=== PATIENT | male | born 1965 | race Caucasian/White ===

== ENCOUNTER 2020-05-22 16:32 | Outpatient (CLI) | payer OTHER, SELFPAY ==
--- NOTE | ~2020-05-22 | XR_ITS ---
EXAMINATION: XR hand LT 2V, XR hand RT 2V DATE: 05/22/2020 16:58 INDICATION: Osteoarthritis at the bilateral hands and sticking at the left fourth and fifth proxima l and distal interphalangeal joints. TECHNIQUE: 1. Posteroanterior and lateral views of the left hand were obtained. 2. Posteroanterior and lateral views of the right hand were obtained. COMPARISON: None. FINDINGS: Alignment is normal at both the left and right hands. No fracture. Typical pattern of mild polyarticu lar osteoarthritis of both hands tearing at the interphalangeal joints with distal predominance, the bilateral first metacarpophalangeal joints and at the bilateral first carpal metacarpal joints. No co rtical erosions to suggest an inflammatory arthritis. Soft tissues are unremarkable. IMPRESSION: 1. Typical pattern of mild bilateral polyarticular osteoarthritis at both hands. Reviewed, dictated and finalized at location A. IMPRESSION: 1. Typical pattern of mild bilateral polyarticular osteoarthritis at both hands .
== END 2020-05-22 16:33 | disposition home or self-care (01) ==
PROVIDERS: PCP Family Medicine; Visit Provider Physician Assistant
DX: M79.641 Pain in right hand (principal); M79.642 Pain in left hand; M19.042 Primary osteoarthritis, left hand; M19.041 Primary osteoarthritis, right hand
CPT/HCPCS: 73120

== ENCOUNTER → 2020-06-20 16:43 | Outpatient (CLI) | payer OTHER, SELFPAY ==
--- NOTE | ~2020-06-20 | XR_ITS ---
XR thoracic spine 3V 06/20/2020 16:56 Indication: Back pain Procedure: 3 views thoracic spine Comparison: No prior studies for comparison. Findings: Mild thoracic spondylosis with dextrocurvature of the thoracic spine. No fracture or trauma tic malalignment. No paraspinal soft tissue abnormality. Visualized lung parenchyma unremarkable. Impression: 1: Mild thoracic spondylosis. Reviewed, dictated and finalized at location A. Impression: 1: Mild thoracic spondylosis.
== END ==
PROVIDERS: PCP Family Medicine; Visit Provider Physician Assistant
DX: M54.9 Dorsalgia, unspecified (principal); M47.814 Spondylosis without myelopathy or radiculopathy, thoracic region
CPT/HCPCS: 72072

== ENCOUNTER 2024-03-13 20:29 | Emergency (ER) | payer OTHER, SELFPAY ==
--- NOTE | ~2024-03-13 | XR_ITS ---
EXAMINATION: XR chest 1V portable Exam Date/Time: 03/13/2024 21:26 CDT HISTORY: Palpitations Comparison: None. RESULT: Lines, tubes, and devices: None. Lungs and pleura: Mild diffuse reticular opacities. Calcified right lower lung granuloma. Cardiomediastinal silhouette: Stable. Other: No acute osseous or upper abdominal finding. IMPRESSION: Mild interstitial edema. Reviewed, dictated and finalized at location K. IMPRESSION: Mild interstitial edema.
[2024-03-13 20:32] VITALS: BP 161/98; PULSE 86; RESP 20; TEMP 36.4; O2SAT 99
--- NOTE | 2024-03-13 20:41 | ECG_ITS ---
SEE SCANNED COPY FOR CONFIRMED REPORT MTDD
--- NOTE | 2024-03-13 20:42 | ED.GENADULT ---
HPI - General Adult General Chief complaint: Arrhythmia/Palpitations Stated complaint: afib Time Seen by Provider: 03/13/24 20:32 History of Present Illness HPI narrative: patient is 58-year-old gentleman who presents emergency department with chief complaint of palpitations. Patient reports that previously had an episode of AFib that was successfully chemically cardioverted the patient reports that today he had an episode where he was startled and then noticed that it felt like his heart was beating irregular patient states he used an Apple watch that did say that there was an episode of possible arrhythmia the patient states that has subsequently improved denies chest pain states that he feels still feels as though his heart may skipping a beat or irregular at times. Patient reports he has history of obstructive sleep apnea and reports that he has been not the most compliant with using his CPAP Related Data Allergies Allergy/AdvReac Type Severity Reaction Status Date / Time codeine Allergy Severe Abdominal Verified 02/09/24 16:13 Pain Review of Systems Review of Systems: A 10 system review of systems was completed on the patient and is negative except for what is stated in the HPI. Nursing and ancillary documentation was reviewed. FORMERLY [facility] Past Medical History Medical History Bilateral carpal tunnel syndrome Bilateral hand pain Carpal tunnel syndrome Neck pain Paresthesias Upper back pain Family History Family History Father Hypertension Social History Social History Smoking packs per day: 0.5 Smoking cigarettes per day: 10.0 Years smoked: 10 Smoking pack-years: 5.00 Smoking status: Never smoker Tobacco type: cigarettes Second hand tobacco smoke exposure: No Alcohol intake: current Alcohol use details: occasional Substance use: never Substance use type: does not use Living arrangements: with family Occupation/Education: occupation Gender identity (if verbalized by the patient): Male Exam Narrative: GENERAL: Well-appearing, well-nourished, and in no acute distress. HEAD: Normocephalic, atraumatic. EYES: PERRLA and EOMI. ENT: Nares clear, no rhinorrhea or epistaxis. Mucous membranes moist. NECK: Supple. CHEST: Clear to auscultation. No respiratory distress. HEART: Regular rate and rhythm. No murmur heard. Normal peripheral pulses. ABDOMEN: Soft, nontender, nondistended, normal active bowel sounds. EXTREMITIES: Normal range of motion. No edema. SKIN: Warm, dry, no rash. NEURO: No focal deficits. Alert and oriented x3. PSYCH: Normal mood and affect. Course Vital Signs Vital signs: Vital Signs Temperature 36.4 C L 03/13/24 20:32 Pulse Rate 86 03/13/24 20:32 Respiratory Rate 20 03/13/24 20:32 Blood Pressure 161/98 H 03/13/24 20:32 Pulse Oximetry 99 03/13/24 20:32 Oxygen Delivery Room Air 03/13/24 20:32 Temperature 36.4 C L 03/13/24 20:32 Pulse Rate 63 03/13/24 22:20 Respiratory Rate 20 03/13/24 22:20 Blood Pressure 135/74 03/13/24 22:20 Pulse Oximetry 97 03/13/24 22:20 Oxygen Delivery Room Air 03/13/24 20:32 Medical Decision Making [facility] Narrative Medical decision making narrative: differential diagnosis includes dysrhythmia, electrolyte abnormality, EKG showed sinus rhythm with sinus arrhythmia. The patient has been observed on the monitor and has normal sinus rhythm without ectopic CBC was within normal limits electrolytes showed a potassium of 3.7 TSH was 3.07 and magnesium was 2.0 troponin was less than 0.012 due to the potassium being 3.7 the patient was given a single dose of additional potassium in the emergency department. chest x-ray showed no focal infiltrate Vital Signs Vital Signs: Vital Signs
[2024-03-13 20:49] LABS: Basophils Absolute Auto 0.1 K/mm3 (0.0-0.1); Eosinophils Absolute Auto 0.1 K/mm3 (0-0.3); Eosinophils Percent Auto 2.1 % (0-4.4); Hematocrit 43.7 % (42.0-52.0); Hemoglobin 15.1 g/dL (14.0-18.0); Immature Granulocyte Absolute 0.01 K/mm3 (0.00-0.031); Immature Granulocyte Percent A 0.2 % (0-0.5); Lymphocytes Absolute Auto 2.22 K/mm3 (0.9-3.2); Lymphocytes Percent Auto 35.4 % (18.3-44.2); Mean Corpuscular HGB Conc 34.6 g/dl (32-36); Mean Corpuscular Hemoglobin 29.5 pg (26-34); Mean Corpuscular Volume 85.5 fl (80-100); Mean Platelet Volume 9.8 fl (7.4-10.4); Monocytes Absolute Auto 0.9 K/mm3 (0.1-0.6); Monocytes Percent Auto 13.9 % (2.6-8.5); Neutrophils Percent Auto 47.4 % (45.5-73.1); Platelet Count Result 280 k/mm3 (150-375); Red Blood Count 5.11 M/mm3 (4.6-6.20); Red Cell Distribution Width 12.5 % (11.5-14.5); White Blood Count 6.3 K/mm3 (4.5-10.0)
[2024-03-13 20:53] VITALS: PULSE 80
[2024-03-13 21:01] LABS: Alanine Aminotransferase 31 U/L (6-50); Albumin Level 4.5 g/dL (3.5-5.1); Alkaline Phosphatase 60 U/L (38-126); Anion Gap 9 mmol/L (4-12); Aspartate Amino Transferase 37 U/L (17-59); Bilirubin,Total 0.4 mg/dL (0.2-1.3); Blood Urea Nitrogen 18 mg/dL (9-20); Calcium 9.7 mg/dL (8.4-10.2); Carbon Dioxide 21 mmol/L (22-30); Chloride 111 mmol/L (98-107); Estimated CRCL calculation 72 ml/min; Estimated Glomerular Filt Rate > 60; Glucose 105 mg/dL (65-110); Partial Thromboplastin Time 26.5 Seconds (22.3-36.8); Potassium 3.7 mmol/L (3.4-5.0); Prothrombin Time 13.4 Seconds (11.1-14.7); Sodium 141 mmol/L (137-145)
[2024-03-13 21:12] LABS: Troponin I < 0.012 ng/mL (0.000-0.034)
[2024-03-13] MEDS: POTASSIUM CHLORIDE 20 MEQ PACKET (FOR LIQUID) 40 MEQ PO (21:50)
[2024-03-13 22:20] VITALS: BP 135/74; PULSE 63; RESP 20; O2SAT 97
[2024-03-13 22:20] LABS: Appearance Urine Clear (Clear); Bilirubin Urine Negative (Negative); Blood Urine Negative (Negative); Color Urine Yellow (Yellow); Glucose Urine UA Negative (Negative); Ketones Urine Negative (Negative); Leukocyte Esterase Ur Negative LEU/UL (Negative); Nitrate Urine Negative (Negative); Protein Urine Negative (Negative); Specific Grav Ur 1.026 (1.001-1.035); pH Urine 5.5 (5.0-9.0)
[2024-03-13 22:24] LABS: Add Urine Microscopic? NO
[2024-03-13 22:49] VITALS: BP 129/77; PULSE 63; RESP 17; O2SAT 97
== END 2024-03-13 22:53 | disposition home or self-care (01) ==
PROVIDERS: Emergency Provider Emergency Medicine; PCP Family Medicine
DX: R00.2 Palpitations (principal); G47.33 Obstructive sleep apnea (adult) (pediatric); Z87.891 Personal history of nicotine dependence; R94.31 Abnormal electrocardiogram [ECG] [EKG]
CPT/HCPCS: 36415; 71045; 80053; 81003; 83735; 84443; 84484; 85025; 85610; 85730; 93005; 99284; A9270

== ENCOUNTER 2024-08-11 10:32 | Outpatient (CLI) | payer OTHER, SELFPAY ==
--- NOTE | 2024-08-11 11:30 | NEURO_ITS ---
Impression: # Complains of upper extremity pain, numbness and cramps in left upper extremity. # Moderate to severe bilateral Carpal Tunnel Syndrome. # Left moderate ulnar neuropathy across the elbow. # Needle/EMG abnormal in left upper extremity proximally as well thus MRI of cervical spine suggested to rule out the possibility of higher involvement as well. Nerve Conduction Studies Anti Sensory Summary Table Stim Site NR Peak (ms) P-T Amp (?V) Site1 Site2 Delta-P (ms) Dist (cm) Edmund (m/s) Left Median Anti Sensory (2-3nd Digit) Wrist 6.2 17.7 Wrist 2-3nd Digit 6.2 14.0 23 Wrist 6.2 12.0 Wrist 2-3nd Digit 6.2 14.0 23 Right Median Anti Sensory (2-3nd Digit) Wrist 5.2 15.1 Wrist 2-3nd Digit 5.2 14.0 27 Wrist 6.3 63.4 Wrist 2-3nd Digit 5.2 14.0 27 Left Radial Anti Sensory (Base 1st Digit) Wrist 1.9 33.3 Wrist Base 1st Digit 1.9 0.0 Right Radial Anti Sensory (Base 1st Digit) Wrist 2.2 18.8 Wrist Base 1st Digit 2.2 0.0 Left Ulnar Anti Sensory (5th Digit) Wrist 2.4 33.0 Wrist 5th Digit 2.4 14.0 58 Right Ulnar Anti Sensory (5th Digit) Wrist 2.4 38.8 Wrist 5th Digit 2.4 14.0 58 Motor Summary Table Stim Site NR Onset (ms) O-P Amp (mV) Site1 Site2 Delta-0 (ms) Dist (cm) Edmund (m/s) Left Median Motor (Abd Poll Brev) Wrist 6.5 4.6 Elbow Wrist 5.5 32.0 58 Elbow 12.0 4.4 Right Median Motor (Abd Poll Brev) Wrist 6.9 4.1 Elbow Wrist 5.3 28.0 53 Elbow 12.2 3.8 Left Ulnar Motor (Abd Dig Minimi) Wrist 2.7 6.5 A Elbow Wrist 6.2 31.0 50 A Elbow 8.9 5.7 B Elbow Wrist 3.8 23.0 61 B Elbow 6.5 4.4 Right Ulnar Motor (Abd Dig Minimi) Wrist 2.5 7.0 A Elbow Wrist 5.3 30.0 57 A Elbow 7.8 5.4 F Wave Studies NR F-Lat (ms) L-R F-Lat (ms) Left Median (Mrkrs) (Abd Poll Brev) 34.56 1.29 Right Median (Mrkrs) (Abd Poll Brev) 35.85 1.29 Left Ulnar (Mrkrs) (Abd Dig Min) 32.41 2.23 Right Ulnar (Mrkrs) (Abd Dig Min) 30.18 2.23 EMG Side Muscle Nerve Root Ins Act Fibs Amp Dur Recrt Comment Right 1stDorInt Ulnar C8-T1 Nml Nml Nml Nml Nml Right Ext Indicis Radial (Post Int) C7-8 Nml Nml Nml Nml Nml Right Ext Digitorum Radial (Post Int) C7-8 Nml Nml Nml Nml Nml Right BrachioRad Radial C5-6 Nml Nml Nml Nml Nml Right PronatorTeres Median C6-7 Nml Nml Nml Nml Nml Right Abd Poll Brev Median C8-T1 Nml Nml Nml >12ms +2 Right ABD Dig Min Ulnar C8-T1 Nml Nml Nml Nml Nml Left 1stDorInt Ulnar C8-T1 Nml Nml Nml Nml Nml Left Ext Indicis Radial (Post Int) C7-8 Nml Nml Nml Nml Nml Left Ext Digitorum Radial (Post Int) C7-8 Nml Nml Nml Nml Nml Left BrachioRad Radial C5-6 Nml Nml Nml Nml Nml Left PronatorTeres Median C6-7 Nml Nml Nml Nml Nml Left Abd Poll Brev Median C8-T1 Nml Nml Nml >12ms +2 Left ABD Dig Min Ulnar C8-T1 Nml Nml Nml Nml Nml Left Biceps Musculocut C5-6 Nml Nml Nml Nml Nml Left Triceps Radial C6-7-8 Nml Nml Nml >12ms Nml Left Deltoid Axillary C5-6 Nml Nml Nml >12ms Nml MTDD
== END 2024-08-11 10:33 | disposition home or self-care (01) ==
PROVIDERS: PCP Family Medicine; Visit Provider Plastic Surgery
DX: G56.03 Carpal tunnel syndrome, bilateral upper limbs (principal); G56.22 Lesion of ulnar nerve, left upper limb
CPT/HCPCS: 95886; 95911

== ENCOUNTER 2024-10-13 01:04 | Day surgery (SDC) | payer OTHER, SELFPAY ==
[2024-10-07 11:11] VITALS: BMI 31.2
--- NOTE | 2024-10-07 11:19 | PC.NURSE ---
Report to the Outpatient Waiting Room, entrance under the green pavilion located off [facility], at time _0830_ on date _[id number]_. Planned Procedure Time: _1030_.? Time changes happen often and if your time is changed the preop area will call you the afternoon before. - You and your visitor will be asked to self-screen and do not enter if you have any COVID symptoms. Please call surgeon if you need to reschedule. - A mask is optional within the hospital at this time. May have clear liquids (water, carbonated beverages, clear teas, apple juice) until 230am surgery with a maximum of 20 ounces. Nothing to drink after 230am - No food from midnight until time of surgery and no smoking Take only the following medications with a SIP of water on the morning of surgery: ___None____ DO NOT STOP ANY OF YOUR OTHER PRESCRIPTION MEDICATIONS PRIOR TO SURGERY EXCEPT THE FOLLOWING Medications to discontinue per physician ____Vitamins and supplements Date to take last ggel___[id number]____ Please no make-up, nail montserratian, hairspray, perfume, deodorant, or body powder the day of surgery.? No jewelry (including any body piercings) or valuables the day of surgery, leave them at home.? Please take a shower or bath the night before, or the morning of, surgery with an antibacterial soap.? Wear comfortable, loose fitting clothing.? - Jewelry must be removed prior to entering the operating room.? Rings and piercings that are not removed may be cut off. - The hospital will not accept responsibility for valuables.? - Please leave all valuables, including medications, at home the day of surgery. If you are going home after surgery, a licensed log driver must drive you home.? - NO public transportation without another adult if you receive anesthesia. - We recommend that an adult stay with you for 24 hours following discharge. - We also recommend that you do not drive, make important decision, drink alcoholic beverages, or take any drugs that were not prescribed by your health care provider for at least 24 hours after your discharge time. Follow any additional instructions given to you from your surgeon. Telephone instructions given to _Robert__and asked if any additional questions and then verbalized understanding. Patient advised to call surgeon office or pre surgery nurse liaison [phone] if any additional questions.
--- NOTE | 2024-10-13 06:52 | PM.HPGS ---
History of Present Illness History of Present Illness Chief complaint: Lesion Ulnar Nerve Left Upper Limb Narrative: Patient seen and examined in pre-operative holding area. No interval change in medical history or symptoms. Patient recalls previous discussion of benefits and alternatives to procedure. Continues to desire to proceed with left endoscopic possible open carpal tunnel release and left cubital tunnel release . Reviewed procedure, post-op expectations and risks including but not limited to bleeding, infection, injury to tendon/nerve/vessel, decreased hand function, stiffness, RSD, no change or worsening of symptoms. I discussed the possible use of assistants and their participation in the case. Patient stated understanding and signed the consent form wishing to proceed. Review of Systems Review of Systems: All systems reviewed & are unremarkable except as noted in HPI and below PMFSH Past Medical History Medical History Bilateral carpal tunnel syndrome Bilateral hand pain Carpal tunnel syndrome Neck pain Paresthesias Upper back pain Family History Family History Father Hypertension Social History Social History Smoking packs per day: 0.5 Smoking cigarettes per day: 10.0 Years smoked: 10 Smoking pack-years: 5.00 Smoking status: Former smoker Tobacco type: cigarettes Second hand tobacco smoke exposure: No Smoking end date: 10/07/94 Alcohol intake: current Alcohol use details: occasional Substance use: never Substance use type: does not use Living arrangements: with family Occupation/Education: occupation Gender identity (if verbalized by the patient): Male Spiritual care concerns: No Meds Home Medications and Allergies Home Medications Medication Instructions Recorded Confirmed Type rosuvastatin 5 mg tablet 5 mg PO DAILY #90 tabs 06/15/24 10/07/24 Rx cholecalciferol (vitamin D3) 25 25 mcg PO DAILY 10/07/24 10/07/24 History mcg (1,000 unit) capsule (Vitamin D3) collagen,hydrolysate 500 mg-biotin 1 cap PO DAILY 10/07/24 10/07/24 History 800 mcg-ascorbic acid 50 mg capsule (Collagen 1500 Plus C) magnesium 200 mg tablet 200 mg PO DAILY 10/07/24 10/07/24 History multivitamin 1 tablet PO DAILY 11/14/24 11/14/24 History Allergies Allergy/AdvReac Type Severity Reaction Status Date / Time codeine Allergy Severe Abdominal Verified 10/07/24 11:09 Pain Exam Narrative: unchanged Assessment and Plan Assessment and plan (1) Entrapment of left ulnar nerve at elbow: Code(s): G56.22 - Lesion of ulnar nerve, left upper limb Status: Acute Assessment and Plan: cont as above (2) Bilateral carpal tunnel syndrome: Code(s): G56.03 - Carpal tunnel syndrome, bilateral upper limbs Status: Acute
--- NOTE | 2024-10-13 06:53 | P.OP_ITS ---
Procedure Note - Detailed Date of Procedure 10/13/24 Pre-op Diagnosis let carpal and cubital tunnel syndrome Post-op Diagnosis Same Procedure Performed left ectr and CuTR Surgeon London Banks MD [facility] Administrator macario bob pa-c Anesthesia MAC Description of Procedure INFORMED CONSENT: The patient was seen and examined and marked in the pre-op area.? The patient signed the consent form. PROCEDURE IN DETAIL:The patient taken back to OR on the stretcher in supine position. Time out performed with anesthesia, surgeon and staff agreeing on patient's name site and surgery to be performed SCDs were placed on the lower extremities and inflated. A tourniquet was placed on {left} upper extremity and antibiotics given IV After anesthesia administered sedation I injected {10}cc 1%lido with epi and 0.5% marcaine plain at the operative sites The?{left upper extremity}?was prepped and draped in sterile fashion the??{left upper extremity} was? exsanguinated with Esmarch bandage and tourniquet inflated to 250mmHg I made a transverse incision in the {left} volar distal wrist crease through skin and dermis with 15 blade scalpel.? Littler scissors spread down to antebrachial fascia. A small incision was made in antebrachial fascia allowing access to Carpal tunnel. I proceeded with sequential dilation staying in line with the ring finger and hugging the hook of the hamate.? I then used the synovial elevator to free any adhesions from the underside of the transverse carpal ligament. Next I was able to insert the Microaire endoscopic carpal tunnel device with direct visualization of the transverse fibers on the monitor and proceeded with complete segmental retrograde release of the ligament in its entirety.? I irrigated with normal saline and closed with 4-0 monocryl for dermis and subcuticular closure. I next proceeded with making a longitudinal incision between two heads for flexor carpi ulnaris at end of {left} cubital tunnel with 15 blade scalpel.? Littler scissors were used to spread down to FCU fascia.? An incision was made in FCU fascia and ulnar nerve identified exiting cubital tunnel.? I proceeded with complete retrograde release of the cubital tunnel including 7cm proximal for the intermuscular septum.? The nerve appeared healthy with visible vaso nervorum.? There was no subluxation on full elbow range of motion. ? I irrigated with normal saline and closure with 3-0 vicryl dermis and 4-0 monocryl for subcuticular. The incisions were covered with Dermabond then 4x4s, rock, and a posterior elbow and volar wrist splint for patient safety, security and comfort and secured with tom bandages after the tourniquet was let down noting the hand was warm and well perfused.? Patient awaken from anesthesia and transferred to recovery in stable condition Complications - none EBL- 1cc Disposition - home in stable conditions macario bob pa-c was essential for positioning, retraction, closure and dressing placement [facility] Billing Surgery - Charge Forward: Surgery Billing ([id number] same for macario acevedo )
[2024-10-13 08:35] VITALS: BP 137/80; PULSE 63; RESP 18; TEMP 36.3; O2SAT 100; BMI 30.9
[2024-10-13] MEDS: LACTATED RINGERS 1,000 ML 30 ML IV CONT (08:50)
--- NOTE | 2024-10-13 09:08 | P.PNAN_ITS ---
Anes - Initial Pre Proc Eval Procedure: Operation Date: 10/13/24 10:30 Proposed Procedures p Left Endoscopic Carpal Tunnel Release, Possible Open, Left Cubital Tunnel Release - London Banks MD Date/Time: 10/13/24 09:08 Surgeon: London Banks MD Pre Op Diagnosis: Lesion Ulnar Nerve Left Upper Limb Patient Data Age: 59 Gender: M Height: 1.83 m Weight: 104.5 kg Allergies Allergy/AdvReac Type Severity Reaction Status Date / Time codeine Allergy Severe Abdominal Verified 10/07/24 11:09 Pain Home Medications Medication Instructions Recorded Confirmed Type rosuvastatin 5 mg tablet 5 mg PO DAILY #90 tabs 06/15/24 10/07/24 Rx cholecalciferol (vitamin D3) 25 25 mcg PO DAILY 10/07/24 10/07/24 History mcg (1,000 unit) capsule (Vitamin D3) collagen,hydrolysate 500 mg-biotin 1 cap PO DAILY 10/07/24 10/07/24 History 800 mcg-ascorbic acid 50 mg capsule (Collagen 1500 Plus C) magnesium 200 mg tablet 200 mg PO DAILY 10/07/24 10/07/24 History multivitamin 1 tablet PO DAILY 10/07/24 10/07/24 History tramadol 50 mg tablet 50 mg PO Q6H PRN pain #12 tabs 10/13/24 Rx Patient hx anesthesia problems: none Family hx anesthesia problems: none Results Review: All pre-operative results and documents have been reviewed as part of the pre- operative evaluation. FORMERLY [facility] Past Medical History Medical History Bilateral carpal tunnel syndrome Bilateral hand pain Carpal tunnel syndrome Neck pain Paresthesias Upper back pain Family History Family History Father Hypertension Social History Social History Smoking packs per day: 0.5 Smoking cigarettes per day: 10.0 Years smoked: 10 Smoking pack-years: 5.00 Smoking status: Former smoker Tobacco type: cigarettes Second hand tobacco smoke exposure: No Smoking end date: 10/07/94 Alcohol intake: current Alcohol use details: occasional Substance use: never Substance use type: does not use Living arrangements: with family Occupation/Education: occupation Gender identity (if verbalized by the patient): Male Spiritual care concerns: No Anes - Eval Final PreProcedure Day of Procedure 10/13/24 09:08 Patient weight: obese Heart: regular rate and rhythm Lungs: clear to auscultation Airway: Mallampati scale class II Neurological: alert and oriented Last oral intake: >/= 8 hours ASA classification: III Emergent: no Anesthetic plan: proceed Anesthesia type and monitoring: general GIVS and standard monitoring Results Review: All pre-operative results and documents have been reviewed as part of the pre- operative evaluation. Hyperlipidemia, DEBBIE on CPAP. Pt exercised w wts daily, no cp or sob. Informed Consent: The patient's anesthetic plan and its attendant risks and benefits were discussed with the patient/family/POA. Questions were solicited and answers provided to the satisfaction of the patient/family/POA.
[2024-10-13] MEDS: ceFAZolin 2 GM/D5W 50 ML 2 GM/50 ML BAG IVPB (09:15)
[2024-10-13] MEDS: BUPivacaine HCL 0.5% 10 ML AMP 5 ML INFILTRATE (09:16)
[2024-10-13] MEDS: LIDO 1%/EPINEPHRINE 1:100,000 50 ML VIAL INFILTRATE (09:18)
[2024-10-13] MEDS: KETOROLAC 30 MG/ML VIAL (*BKC) IV PUSH (09:48)
[2024-10-13 09:49] VITALS: BP 112/64; PULSE 70; RESP 20; O2SAT 95
[2024-10-13 10:15] VITALS: BP 133/66; PULSE 63; RESP 20
[2024-10-13 10:40] VITALS: BP 125/81; PULSE 57; RESP 20
== END 2024-10-13 10:43 | disposition home or self-care (01) ==
PROVIDERS: PCP Family Medicine; Visit Provider Plastic Surgery
PROC: 01N54ZZ Release Median Nerve, Percutaneous Endoscopic Approach (ICD-10-PCS; CPT 29848; principal; 2024-10-13 10:30)
DX: G56.02 Carpal tunnel syndrome, left upper limb (principal); G56.22 Lesion of ulnar nerve, left upper limb; Z87.891 Personal history of nicotine dependence
CPT/HCPCS: 29848; 64718; A9270; J0690; J1885; J2003; J2004; J2250; J2405; J2704; J3010; J7120

== ENCOUNTER 2024-11-08 08:22 | Emergency (ER) | payer OTHER, SELFPAY ==
--- NOTE | 2024-11-08 08:26 | ED.ABDPAIN ---
HPI - Abdominal Pain General Chief Complaint: Abdominal Pain Stated Complaint: lower abdominal pain Time Seen by Provider: 11/08/24 08:29 Source: patient, RN notes reviewed and old records reviewed Mode of arrival: ambulatory Limitations: no limitations History of Present Illness HPI narrative: 59-year-old male presents to the [facility] with lower abdominal pain, mostly suprapubic and left lower quadrant. Denies any past abdominal surgeries. States symptoms started on Friday, 3 days ago. No treatment prior to arrival. states he has had some frequency with urination. Pain with bowel movements. Related Data Home Medications ?Medication ?Instructions ?Recorded ?Confirmed ?Last Taken ?Type cholecalciferol (vitamin D3) 25 25 mcg PO DAILY 10/07/24 10/13/24 10/09/24 History mcg (1,000 unit) capsule (Vitamin D3) collagen,hydrolysate 500 mg-biotin 1 cap PO DAILY 10/07/24 10/13/24 10/09/24 History 800 mcg-ascorbic acid 50 mg capsule (Collagen 1500 Plus C) magnesium 200 mg tablet 200 mg PO DAILY 10/07/24 10/13/24 10/09/24 History multivitamin 1 tablet PO DAILY 10/07/24 10/13/24 10/09/24 History Allergies Allergy/AdvReac Type Severity Reaction Status Date / Time codeine AdvReac Severe Abdominal Verified 11/08/24 08:33 Pain Review of Systems Review of Systems: All systems reviewed & are unremarkable except as noted in HPI and below Constitutional: Constitutional: Reports no additional constitutional complaints ENT: Reports system reviewed and no additional complaints, except as documented Cardiovascular: Cardiovascular: Reports no additional cardiovascular complaints, Denies chest pain and Denies dyspnea Respiratory: Respiratory: Reports no additional respiratory complaints, Denies chest congestion, Denies cough and Denies dyspnea Gastrointestinal: Gastrointestinal: Reports as per HPI, Reports abdominal pain, Denies change in stool character, Denies constipation, Denies diarrhea, Denies nausea and Denies vomiting Genitourinary: Genitourinary: Reports as per HPI and Reports urinary frequency Musculoskeletal: Musculoskeletal: Reports no additional musculoskeletal complaints Integumentary/Breasts: Skin/Breast: Reports system reviewed and no additional complaints, except as docu [facility] Past Medical History Medical History Upper back pain Carpal tunnel syndrome Bilateral carpal tunnel syndrome Neck pain Paresthesias Bilateral hand pain Family History Family History Father Hypertension Social History Social History Smoking packs per day: 0.5 Smoking cigarettes per day: 10.0 Years smoked: 10 Smoking pack-years: 5.00 Smoking status: Former smoker Tobacco type: cigarettes Second hand tobacco smoke exposure: No Smoking end date: 10/07/94 Alcohol intake: current Alcohol use details: occasional Substance use: never Substance use type: does not use Living arrangements: with family Occupation/Education: occupation Gender identity (if verbalized by the patient): Male Spiritual care concerns: No Comments At the time of my signature, I reviewed and agree with the nursing past medical, surgical, social, and family history. There is no relevant family history pertinent to the patient complaint. Exam Const: General: cooperative, healthy appearing, comfortable, no acute distress, well developed, alert and well nourished Nutritional Appearance: well nourished Orientation/consciousness: patient oriented x3 Limitations: no limitations HENMT: Head: normal to inspection Ears: hearing grossly normal bilaterally and external ears normal Face/Nose/Sinus: Normal external nose present, normal facial exam and face symmetric Eyes: General: appearance normal, both eyes and all related structures Neck: Neck: normal visual inspection, full ROM, no lymphadenopathy and no meningeal signs Chest: Chest palpation & inspection: normal inspection of the chest Resp: Effort & Inspection: normal respiratory effort and able to speak in complete sentences Cardio: Rate: regular rate GI: GI Palp: Yes abdominal tenderness (Suprapubic, left lower quadrant), Yes Soft to palpation and No Guarding due to palpation present (GI) Auscultation: normal bowel sounds Rectal Exam: deferred : General: Yes no CVA tenderness Skin: General skin exam: normal color and no rashes or lesions noted Lesions: no lesions Rashes: no rashes Wounds: no wounds Neuro: General: patient oriented x3, gait normal, tone normal, moves all extremities and no meningeal signs Cognition (Neuro): normal cognition Speech: normal speech Gait exam (Neuro): Normal gait present Extrem: General: normal to inspection, full ROM, capillary refill normal and normal gait Psych: Appearance: grossly normal and well kempt Mental Status: mental status grossly normal Speech and movement: Normal speech and movement present and Clear speech present Affect: normal affect Attitude: cooperative Course Course Level of Care: Express Care Visit Vital Signs Vital signs: Vital Signs Temperature 97.5 F L 11/08/24 08:32 Pulse Rate 66 11/08/24 08:32 Respiratory Rate 16 11/08/24 08:32 Blood Pressure 147/72 H 11/08/24 08:32 Pulse Oximetry 100 11/08/24 08:32 Oxygen Delivery Room Air 11/08/24 08:32 Temperature 97.5 F L 11/08/24 08:32 Pulse Rate 66 11/08/24 08:32 Respiratory Rate 16 11/08/24 08:32 Blood Pressure 147/72 H 11/08/24 08:32 Pulse Oximetry 100 11/08/24 08:32 Oxygen Delivery Room Air 11/08/24 08:32 Reviewed Transfer Transfered to: [facility] (Per patient request) Transportation: Other (POV) Transfer rationale: Patient with suprapubic, left lower quadrant, increasing for 3 days. Sending rule out diverticulitis, acute abdomen Accepting physician: Spoke with Vikas CASTELLON, Dr. Melo excepting MDM - Abdominal Pain MDM Narrative Medical decision making narrative: Patient sitting in exam room. Nontoxic, vitals stable. Patient in no acute distress. Patient presents with left lower quadrant pain. Denies any and surgeries hands. Denies any history of diverticulitis. Still has his appendix. Denies any history of kidney stones Patient being transferred for higher level of care Transfer instructions reviewed with patient by myself as well as RN. Instructed patient to go directly to the ER, do not eat or drink until clear by ER provider All questions have been answered, and the patient deny any further questions Some parts of this dictation were generated by voice recognition software and may contain typographical and/or grammatical inaccuracies. Differential Diagnosis Differential diagnosis: Likely abdominal pain, acute appendicitis, calculus of kidney, constipation, diverticulitis, gastroenteritis and small bowel obstruction Critical Care Time Critical Care Time Critical Care Time: No Discharge Plan Discharge Clinical Impression: Abdominal pain, acute, left lower quadrant Patient Disposition: Acute Care Hospital Condition: Stable Patient Language: Mozambican Prescriptions: No Action multivitamin Tablet 1 tablet PO DAILY cholecalciferol (vitamin D3) [Vitamin D3] 25 mcg (1,000 unit) Capsule 25 mcg PO DAILY magnesium 200 mg Tablet 200 mg PO DAILY Collagen 1500 Plus C 500 mg-800 mcg- 50 mg Capsule 1 cap PO DAILY rosuvastatin 5 mg tablet 5 mg PO DAILY Qty: 90 2RF Follow-up/Referrals: Froylan Kenney MD [Primary Care Provider] -
[2024-11-08 08:32] VITALS: BP 147/72; PULSE 66; RESP 16; TEMP 36.4; O2SAT 100
--- OUTSIDE RECORDS SUMMARY | 2024-11-14 06:55 | XMS_ITS | Continuity of Care Document ---
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 It does not include entries that were removed or entered in error. Problem Status Onset Date Problem Type Date of Resolution Comments Source joint pain, localized in the knee Active Condition DoD patellofemoral syndrome Active Condition DoD trapezius muscle strain Inactive Condition [facility] visit for: services physical separation Inactive Condition Recurrent knee pain as noted., else no known duty related injuries or illnesses at this time [facility] joint instability ankle / foot Active Condition [facility] Other Physical Therapy Active Condition DoD Medications Combined list of outpatient medications from Department of [employer] and Veterans [facility] facilities.Medications provided include 1) outpatient medications from the last 15 months, and 2) patient-reported medications. Medication Details Route Status Patient Instructions Prescription Expires Prescription Number Last Dispense Date Ordering Provider Order Date Order Qty Source FLUARIX QUAD [id number] (influenza virus vaccine quadrival [id number](6 mos and up)/PF), 60MCG/.5ML, SYRINGE, INTRAMUSC, GLAXOSMITHK LINE, .5 ml SYRINGE Active [id number] 2022 0.5 Pharmac y Data Transac tion Service Facilit y ROSUVASTATI N CALCIUM (rosuvastat in calcium), 5 MG, TABLET, ORAL, CAMBER PHARMACE, 90 ea. BOTTLE Active [id number] 4 2023 90 Pharmac y Data Transac tion Service Facilit y ROSUVASTATI N CALCIUM (rosuvastat in calcium), 5 MG, TABLET, ORAL, CAMBER PHARMACE, 90 ea. BOTTLE Active [id number] 4 2023 90 Pharmac y Data Transac tion Service Facilit y Allergies, Adverse Reactions, Alerts Combined list of allergies from Department of [employer]al [employer] and Veterans Affairs facilities. It does not include entries that were removed or entered in error. Substance Category Reaction Severity Reaction type Status Date Reported Comments Source ACETAMINOPHEN W-CODEINE (CODEINE PHOS/ACETAMINOP HEN) Drug allergy (disorder) Unknown active [address] [place] [address] Medical Group Immunizations Combined list of available immunizations from the Department of Defense and Veterans Affairs facilities. Immunization Series Date Given Administered By Site Reaction Lot Number CVX Code Drug Program Support Assistant Status Comments Source COVID-19, mRNA, LNP-S, PF, 30 mcg/0.3 mL dose 2020 ALUL, () Not Given COVID-19, mRNA, LNP-S, PF, 30 mcg/0.3 mL dose DoD influenza, injectable, quadrivalent, preservative free 2020 CUTLER, () Not Given influenza , injectabl e, quadrival ent, preservat lamont free DoD influenza, injectable, quadrivalent, preservative free 2019 ALUL, () Not Given influenza , injectabl e, quadrival ent, preservat lamont free DoD Tdap 2017 ALUL, () Not Given Tdap DoD influenza virus vaccine, split virus (incl. purified surface antigen)-reti red CODE 1 2005 Unknown, Provider [id number] complet [facility] influenza virus vaccine, split virus (incl. purified surface antigen)- retired CODE DoD influenza virus vaccine, split virus (incl. purified surface antigen)-reti red CODE 1 2004 AP [id number] Sanofi Pasteur ([facility]) complet ed influenza virus vaccine, split virus (incl. purified surface antigen)- retired CODE DoD influenza virus vaccine, split virus (incl. purified surface antigen)-reti red CODE 0 2004 [id number] Sanofi Pasteur ([facility]) complet ed influenza virus vaccine, split virus (incl. purified surface antigen)- retired CODE DoD influenza virus vaccine, whole virus 0 2002 [id number] [employer] (PWJ) complet ed influenza virus vaccine, whole virus DoD influenza virus vaccine, whole virus 0 2001 [id number] Sanofi Pasteur ([facility]) complet ed influenza virus vaccine, whole virus DoD yellow fever vaccine 0 2001 [id number] [place] (CON) complet ed yellow fever vaccine DoD varicella virus vaccine 0 2001 POS HX 21 () Not Given varicella virus vaccine DoD typhoid Vi capsular polysaccharid e vaccine 0 2001 [id number] Sanofi Pasteur ([facility]) complet ed typhoid Vi capsular polysacch aride vaccine DoD tuberculin skin test; purified protein derivative solution, intradermal 1 2001 Unknown, Provider [id number] Sanofi Pasteur ([facility]) complet ed tuberculi n skin test; purified protein derivativ e solution, intraderm al DoD influenza virus vaccine, whole virus 0 2000 [id number] Sanofi Pasteur ([facility]) complet ed influenza virus vaccine, whole virus DoD influenza virus vaccine, whole virus 0 [id number] 16 Wyeth-Ayerst (Inactive) (CT) complet ed influenza virus vaccine, whole virus DoD hepatitis A vaccine, adult dosage 2 1998 [id number] 52 [employer] ([facility]) complet ed hepatitis A vaccine, adult dosage DoD tuberculin skin test; purified protein derivative solution, intradermal 1 1998 Unknown, Provider [phone] [facility] ([facility]) complet ed tuberculi n skin test; purified protein derivativ e solution, intraderm al DoD influenza virus vaccine, whole virus 0 [id number] 16 [employer]-Ayerst (Inactive) (CT) complet ed influenza virus vaccine, whole virus DoD tetanus and diphtheria toxoids, adsorbed, preservative free, for adult use (2 Lf of tetanus toxoid and 2 Lf of diphtheria toxoid) 0 1996 [id number] Kerrie (LED) comple t ed tetanus and diphtheri a toxoids, adsorbed, preservat lamont free, for adult use (2 Lf of tetanus toxoid and 2 Lf of diphtheri a toxoid) DoD influenza virus vaccine, whole virus 0 [id number] 16 [employer]-Ayerst (Inactive) (CT) complet ed influenza virus vaccine, whole virus DoD typhoid vaccine, parenteral, other than acetone-kille d, dried 0 1996 [id number] Merieux (IM) complet ed typhoid vaccine, parentera l, other than acetone-k illed, dried DoD hepatitis A vaccine, adult dosage 1 1996 [id number] 52 Merck (MSD) complet ed hepatitis A vaccine, adult dosage DoD influenza virus vaccine, whole virus 0 1995 [id number] 16 Kerrie (LED) comple t ed influenza virus vaccine, whole virus DoD typhoid vaccine, parenteral, acetone-kille d, dried (U.S. ) 3 1988 [id number] Merck (MSD) complet ed typhoid vaccine, parentera l, acetone-k illed, dried (U.S. ) DoD trivalent poliovirus vaccine, live, oral 0 1984 02 () complet ed trivalent polioviru s vaccine, live, oral DoD tetanus and diphtheria toxoids, adsorbed, preservative free, for adult use (2 Lf of tetanus toxoid and 2 Lf of diphtheria toxoid) 0 1984 09 () complet ed tetanus and diphtheri a toxoids, adsorbed, preservat lamont free, for adult use (2 Lf of tetanus toxoid and 2 Lf of diphtheri a toxoid) DoD measles, mumps and rubella virus vaccine 0 1983 03 () complet ed measles, mumps and rubella virus vaccine DoD Encounters Combined list of: 1) Encounters from Department of Veterans Affairs facilities going back up to thelast 18 months. 2) Encounters from the Department of Defense facilities going back up to 280 months. Location Location Details Encounter Type Encounter Number Reason For Visit Attending Provider ADM Date DC Date Status Disposition Source [employer](Phy sical Therapy) OUTPATIENT [id number] Left Ankle Aircast SABINE SPEARS 03/11 Released w/o Limitations [employer](P hysical Therapy ) [employer](Phy sical Therapy Resource Source) OUTPATIENT [id number] MIKE LARSON 03/19 Released w/o Limitations [employer](P hysical Therapy Resourc e Source) [employer](Phy sical Therapy Resource Source) OUTPATIENT [id number] SERENITY ALMARAZ 03/21 Released w/o Limitations [employer](P hysical Therapy Resourc e Source) [employer](Phy sical Therapy Resource Source) OUTPATIENT [id number] SERENITY ALMARAZ 03/25 Released w/o Limitations [employer](P hysical Therapy Resourc e Source) [employer] [facility] OUTPATIENT [id number] 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 MARIUSZ BALL 03/27 Released w/o Limitations [employer](X Primary Practic e Clinic Part) [employer](Phy sical Therapy Resource Source) OUTPATIENT [id number] SERENITY ALMARAZ 03/31 Released w/o Limitations [employer](P hysical Therapy Resourc e Source) [employer](Phy sical Therapy Resource Source) OUTPATIENT [id number] SERENITY ALMARAZ 04/03 Released w/o Limitations [employer](P hysical Therapy Resourc e Source) [employer](Phy sical Therapy Resource Source) OUTPATIENT [id number] MIKE Eddy 04/08 Released w/o Limitations [employer](P hysical Therapy Resourc e Source) [employer](Phy sical Therapy) OUTPATIENT [id number] SABINE SPEARS 04/14 Released w/o Limitations [employer](P hysical Therapy ) [employer](Phy sical Therapy Resource Source) OUTPATIENT [id number] SERENITY ALMARAZ 04/28 Released w/o Limitations [employer](P hysical Therapy Resourc e Source) [employer](Phy sical Therapy Resource Source) OUTPATIENT [id number] SERENITY ALMARAZ 04/30 Released w/o Limitations [employer](P hysical Therapy Resourc e Source) [employer](Phy sical Therapy Resource Source) OUTPATIENT [id number] MIKE LARSON 05/14 Released w/o Limitations [employer](P hysical Therapy Resourc e Source) [employer] [facility] ([facility]Amb Care Clinic) OUTPATIENT [id number] back/ne ck pain x 1wk. no injury AFTAB FONTENOT 10/30 Released w/o Limitations [employer] [place] ([facility]A Care Clinic) [employer] [place] ([facility])(Phy sical Therapy) OUTPATIENT [id number] Pas entered the order JODY ZAMORA 04/29 Released w/o Limitations [employer] [place] ([facility]P hysical Therapy ) [employer] [facility] [place] ([facility]Phy sical Therapy) OUTPATIENT [id number] DILEEP PHILLIPS 05/02 Released w/o Limitations [employer] [facility]P [facility]ical Therapy ) [employer] [facility]Phy sical Therapy) OUTPATIENT [id number] GALLARDO JULIO Dorian 05/04 Released w/o Limitations [employer] [facility]P [facility]ysical Therapy ) [employer] ([facility]Phy sical Therapy) OUTPATIENT [id number] DILEEP PHILLIPS 05/09 Released w/o Limitations [employer] ([facility]P hysical Therapy ) [employer] ([facility]Phy sical Therapy) OUTPATIENT [id number] CARLA HAIRSTON 05/12 Released w/o Limitations [employer] ([facility]P hysical Therapy ) [employer] ([facility]Phy sical Therapy) OUTPATIENT [id number] CARLA HAIRSTON 05/16 Released w/o Limitations [employer] [facility]P hysical Therapy ) [employer] ([facility]Phy sical Therapy) OUTPATIENT [id number] DILEEP PHILLIPS 05/18 Released w/o Limitations [employer] ([facility]P hysical Therapy ) [employer] ([facility]Phy sical Therapy) OUTPATIENT [id number] JODY ZAMORA 05/20 Released w/o Limitations [employer] ([facility]P hysical Therapy ) [facility] Outpatient Encounter [id number] 05/[address] [facility] N Procedures Combined list of: 1) Procedures from Department of Veterans Affairs facilities going back up to thelast 18 months, not all VA non-surgical procedures are included; 2) All procedures from the Department of Defense facilities. Procedure Procedure Type Code Date Perfomer Comments [facility] e PHYSICAL THERAPY RE-EVALUATION 8 [facility] THERAPEUTIC PROCEDURE, 1 OR MORE AREAS, EACH 15 MINUTES; THERAPEUTIC EXERCISES TO DEVELOP STRENGTH AND ENDURANCE, RANGE OF MOTION AND FLEXIBILITY 8 [facility] THERAPEUTIC PROCEDURE, 1 OR MORE AREAS, EACH 15 MINUTES; THERAPEUTIC EXERCISES TO DEVELOP STRENGTH AND ENDURANCE, RANGE OF MOTION AND FLEXIBILITY 8 [facility] THERAPEUTIC PROCEDURE, 1 OR MORE AREAS, EACH 15 MINUTES; THERAPEUTIC EXERCISES TO DEVELOP STRENGTH AND ENDURANCE, RANGE OF MOTION AND FLEXIBILITY 8 [facility] THERAPEUTIC PROCEDURE, 1 OR MORE AREAS, EACH 15 MINUTES; THERAPEUTIC EXERCISES TO DEVELOP STRENGTH AND ENDURANCE, RANGE OF MOTION AND FLEXIBILITY 8 DoD THERAPEUTIC PROCEDURE, 1 OR MORE AREAS, EACH 15 MINUTES; THERAPEUTIC EXERCISES TO DEVELOP STRENGTH AND ENDURANCE, RANGE OF MOTION AND FLEXIBILITY 8 [facility] THERAPEUTIC PROCEDURE, 1 OR MORE AREAS, EACH 15 MINUTES; THERAPEUTIC EXERCISES TO DEVELOP STRENGTH AND ENDURANCE, RANGE OF MOTION AND FLEXIBILITY 8 [facility] PHYSICAL THERAPY EVALUATION 8 DoD THERAPEUTIC PROCEDURE, 1 OR MORE AREAS, EACH 15 MINUTES; THERAPEUTIC EXERCISES TO DEVELOP STRENGTH AND ENDURANCE, RANGE OF MOTION AND FLEXIBILITY 6 DoD APPLICATION OF A MODALITY TO 1 OR MORE AREAS; HOT OR COLD PACKS 6 DoD THERAPEUTIC PROCEDURE, 1 OR MORE AREAS, EACH 15 MINUTES; THERAPEUTIC EXERCISES TO DEVELOP STRENGTH AND ENDURANCE, RANGE OF MOTION AND FLEXIBILITY 6 DoD APPLICATION OF A MODALITY TO 1 OR MORE AREAS; HOT OR COLD PACKS 6 DoD APPLICATION OF A MODALITY TO 1 OR MORE AREAS; HOT OR COLD PACKS 6 DoD APPLICATION OF A MODALITY TO 1 OR MORE AREAS; HOT OR COLD PACKS 6 DoD APPLICATION OF A MODALITY TO 1 OR MORE AREAS; HOT OR COLD PACKS 6 DoD APPLICATION OF A MODALITY TO 1 OR MORE AREAS; HOT OR COLD PACKS 6 DoD APPLICATION OF A MODALITY TO 1 OR MORE AREAS; HOT OR COLD PACKS 6 [facility] PHYSICAL THERAPY EVALUATION 6 DoD ANKLE CONTROL ORTHOSIS, STIRRUP STYLE, RIGID, INCLUDES ANY TYPE INTERFACE (E.G., PNEUMATIC, GEL), PREFABRICATED, [id number] 6 [facility] THERAPEUTIC PROCEDURE, 1 OR MORE AREAS, EACH 15 MINUTES; THERAPEUTIC EXERCISES TO DEVELOP STRENGTH AND ENDURANCE, RANGE OF MOTION AND FLEXIBILITY 5 DoD MANUAL THERAPY TECHNIQUES (EG, MOBILIZATION/ MANIPULATION, MANUAL LYMPHATIC DRAINAGE, MANUAL TRACTION), 1 OR MORE REGIONS, EACH 15 MINUTES 5 [facility] THERAPEUTIC PROCEDURE, 1 OR MORE AREAS, EACH 15 MINUTES; THERAPEUTIC EXERCISES TO DEVELOP STRENGTH AND ENDURANCE, RANGE OF MOTION AND FLEXIBILITY 5 [facility] CAST SUPPLIES, SHORT ARM SPLINT, ADULT (11 YEARS +), FIBERGLASS 5 [facility] CLOSED TREATMENT OF RADIAL HEAD OR NECK FRACTURE; WITHOUT MANIPULATION 5 [facility] SCREENING TEST OF VISUAL ACUITY, QUANTITATIVE, BILATERAL 5 [facility] CAST SUPPLIES, SHORT ARM CAST, ADULT (11 YEARS +), PLASTER 5 [facility] EDUCATIONAL SUPPLIES, SUCH BOOKS, TAPES, AND PAMPHLETS, FOR THE PATIENT'S EDUCATION AT COST TO PHYSICIAN OR OTHER QUALIFIED HEALTH SPINNER FRAME 4 [facility] EDUCATIONAL SUPPLIES, SUCH BOOKS, TAPES, AND PAMPHLETS, FOR THE PATIENT'S EDUCATION AT COST TO PHYSICIAN OR OTHER QUALIFIED HEALTH SPINNER FRAME 4 [facility] Physical Therapy Service Re-Evaluation Physical Therapy Service Re-Evaluation [id number] JODY ZAMORA [facility] Physical Therapy: ___ Se ion Segments, 15 Minutes Each Physical Therapy: ___ Session Segments, 15 Minutes Each [id number] DILEEP PHILLIPS [facility] Physical Therapy: ___ Se ion Segments, 15 Minutes Each Physical Therapy: ___ Session Segments, 15 Minutes Each [id number] CARLA HAIRSTON [facility] Physical Therapy: ___ Se ion Segments, 15 Minutes Each Physical Therapy: ___ Session Segments, 15 Minutes Each [id number] CARLA HAIRSTON [facility] Physical Therapy: ___ Se ion Segments, 15 Minutes Each Physical Therapy: ___ Session Segments, 15 Minutes Each [id number] 8 DILEEP PHILLIPS [facility] Physical Therapy: ___ Se ion Segments, 15 Minutes Each Physical Therapy: ___ Session Segments, 15 Minutes Each [id number] JULIO GALLARDO [facility] Physical Therapy: ___ Se ion Segments, 15 Minutes Each Physical Therapy: ___ Session Segments, 15 Minutes Each [id number] 8 DILEEP PHILLIPS [facility] Physical Therapy Service Evaluation Physical Therapy Service Evaluation [id number] JODY ZAMORA [facility] Physical Therapy: ___ Se ion Segments, 15 Minutes Each Physical Therapy: ___ Session Segments, 15 Minutes Each [id number] 6 MIKE LARSON [facility] Modalities Cryotherapy Cold Packs Modalities Cryotherapy Cold Packs [id number] 6 HER, [facility] Modalities Electrical Stimulation Unattended Modalities Electrical Stimulation Unattended [id number] 6 HERTZ, [facility] Physical Therapy: ___ Se ion Segments, 15 Minutes Each Physical Therapy: ___ Session Segments, 15 Minutes Each [id number] 6 HERTZ, [facility] Physical Therapy: ___ Se ion Segments, 15 Minutes Each Physical Therapy: ___ Session Segments, 15 Minutes Each [id number] 6 [facility], [facility] Modalities Cryotherapy Cold Packs Modalities Cryotherapy Cold Packs [id number] 6 SMEN, SABINE R with EStim to left ankle x 20 mins [facility] Modalities Electrical Stimulation Unattended Modalities Electrical Stimulation Unattended [id number] 6 SMEN, SABINE R IES to left ankle x 20 mins [facility] Physical Therapy: ___ Se ion Segments, 15 Minutes Each Physical Therapy: ___ Session Segments, 15 Minutes Each [id number] 6 SMEN, SABINE R New Ther Ex instructed x 30 mins per new flowsheet by therapist [facility] Modalities Cryotherapy Cold Packs Modalities Cryotherapy Cold Packs [id number] 6 MIKE LARSON [facility] Modalities Electrical Stimulation Unattended Modalities Electrical Stimulation Unattended 38553 6 MIKE LARSON [facility] Physical Therapy: ___ Se ion Segments, 15 Minutes Each Physical Therapy: ___ Session Segments, 15 Minutes Each [id number] 6 MIKE LARSON [facility] Physical Therapy Service Re-Evaluation Physical Therapy Service Re-Evaluation [id number] 6 MIKE LARSON [facility] Modalities Cryotherapy Cold Packs Modalities Cryotherapy Cold Packs [id number] 6 [facility] Modalities Electrical Stimulation Unattended Modalities Electrical Stimulation Unattended [id number] 6 HERTZ, [facility] Physical Therapy: ___ Se ion Segments, 15 Minutes Each Physical Therapy: ___ Session Segments, 15 Minutes Each [id number] 6 [facility]Z, [facility] DoD Physical Therapy: ___ Se ion Segments, 15 Minutes Each Physical Therapy: ___ Session Segments, 15 Minutes Each [id number] 6 HERTZ, [facility] DoD Modalities Electrical Stimulation Unattended Modalities Electrical Stimulation Unattended 92950 6 HERTZ, [facility] DoD Modalities Cryotherapy Cold Packs Modalities Cryotherapy Cold Packs 02475 6 HERTZ, [facility] DoD Modalities Cryotherapy Cold Packs Modalities Cryotherapy Cold Packs [id number] 6 HERTZ, [facility] Modalities Electrical Stimulation Unattended Modalities Electrical Stimulation Unattended [id number] 6 HERTZ, [facility] DoD Physical Therapy: ___ Se ion Segments, 15 Minutes Each Physical Therapy: ___ Session Segments, 15 Minutes Each [id number] 6 HERTZ, [facility] DoD Modalities Electrical Stimulation Unattended Modalities Electrical Stimulation Unattended 87086 6 HERTZ, [facility] DoD Modalities Cryotherapy Cold Packs Modalities Cryotherapy Cold Packs [id number] 6 HERTZ, [facility] DoD Physical Therapy: ___ Se ion Segments, 15 Minutes Each Physical Therapy: ___ Session Segments, 15 Minutes Each [id number] 6 HERTZ, [facility] DoD Physical Therapy Service Evaluation Physical Therapy Service Evaluation [id number] 6 MIKE LARSON Ankle control orthosis, stirrup style, rigid, includes any type interface (e.g., pneumatic, gel), prefabricated, [id number] 6 SABINE SPEARS Left Air Cast DoD Social History Combined list of available smoking, tobacco, and other social history from Department of Defense and Veterans Affairs facilities. Social History Type Response Date Comment Sour e This section is an empty social history section. DoD
--- OUTSIDE RECORDS SUMMARY | 2024-11-14 06:55 | XMS_ITS | Encounter Summary ---
Author Name [facility] Organization [facility] Address [address] [place] [address] Support Name Relationship Address Phone SABINE CEDILLO Next of Kin [address] [place], [place] [id number] SABINE CEDILLO Emergency Contact [address] [place], [place] [phone] Selected Encounter This section includes the information on record at [place] for the Encounter. Date/Time Encounter Type Encounter Description Reason Pro vider Source May 24, 2024 05:44 PM Outpatient Encounter ADMIN PAT ACTIVTIES (MASNONCT) IHE Encounter Template Text not used by [place] Encounter Notes: All associated encounter notes This section contains the clinical notes associated to the Encounter. Date/Time Encounter Note(s) Provider Source May 24, 2024 05:44 PM PRIMARY CARE LETTE RS: LOCAL TITLE: PC NEW PATIENT NO CONTACT LETTER ST STANDARD TITLE: PRIMARY CARE LETTERS DATE OF NOTE: MAY 24, 2024@17:44 ENTRY DATE: MAY 24, 2024@17:44:56 AUTHOR: DAVID BOX EXP COSIGNER: URGENCY: STATUS: COMPLETED [facility] [address] [place] [address] MAY 24, 2024 [address]ED[address]O [address] [place], [place] [address], [place] [address] Dear Ava Cedillo, Thank you for your interest in establishing care with a Primary Care Provider at the [facility]. Your Primary Care Provider is the clinical leader of your Patient Aligned Care Team (PACT). Your PACT Team manages and coordinates your comprehensive health care services. Primary Care includes, but is not limited to: diagnosis and management of acute and chronic health conditions, health promotion, disease prevention, overall care management, post-deployment care, and patient and caregiver education. If you would like more information, please visit [email or web address]. We have been unsuccessful in our attempts to contact you to schedule your initial appointment. Based on your current residence, the clinic recommended for your primary care needs is: [place] [address] We are happy to accommodate your request with another clinic, if needed. Please call to schedule your initial appointment. Thank you for your service, and we look forward to hearing from you. Sincerely, DAVID BOX [facility] AVA CEDILLO JR, [facility] May 24, 2024 05:44 PM ADMINISTRATIVE NOT E: LOCAL TITLE: SCHEDULING NOTE ST STANDARD TITLE: ADMINISTRATIVE NOTE DATE OF NOTE: MAY 24, 2024@17:44 ENTRY DATE: MAY 24, 2024@17:44:29 AUTHOR: DAVID BOX COSIGNER: URGENCY: STATUS: COMPLETED Additional comments: CALLED AND LEFT MESSAGE FOR PATIENT TO SCHEDULE A NEW PATIENT APPOINTMENT PER INACTIVE LIST. ADDITIONAL RESULTS FROM SCHEDULING ATTEMPTS: /juanita/ DAVID BOX [facility] Signed: 05/24/2024 17:44 DAVID BOX [facility]
--- OUTSIDE RECORDS SUMMARY | 2024-11-14 10:14 | XMS_ITS | Encounter Summary ---
Author Organization [facility] Address [address] [place] [address]. [place], [place] [address] [place] [address] Care Team Providers Care Environmental Remediation Specialist Name Role Phone Pb Su MD Primary Care Provider [phone] Encounter Details Date Type Department Care Team (Latest Contact Info) Description 06/06/2016 Abstract [facility] Social History Tobacco Use Types Packs/Day Years Used Date Smoking Tobacco: Never Assessed Sex and Gender Information Value Date Recorded Sex Assigned at Not on file Legal Sex Male 7:22 PM CDT Gender Identity Not on file Sexual Orientation Not on file documented as of this encounter Plan of Treatment Not on file documented as of this encounter Visit Diagnoses Not on filedocumented in this encounter Care Teams Environmental Remediation Specialist Relationship Specialty Start Date End Date Pb Su MD [address] [place] [address] PCP - General 04/26/16 documented as of this encounter
--- OUTSIDE RECORDS SUMMARY | 2024-11-14 10:14 | XMS_ITS | Encounter Summary ---
Author Organization [facility] Address [address] [place] [address]. [place], [place] [address] [place] [address] Care Team Providers Care Carding Machine Operator Name Role Phone Pb Su MD Primary Care Provider [phone] [phone] Encounter Details Date Type Department Care Team (Late st Contact Info) Description 10/21/2016 Abstract [facility] Family Medicine - [place] [address] [place] [address] Pb Su MD [address] [place] [address] Social History Tobacco Use Types Packs/Day Years Used Date Smoking Tobacco: Never Assessed Sex and Gender Information Value Date Recorded Sex Assigned at Not on file Legal Sex Male 7:22 PM CDT Gender Identity Not on file Sexual Orientation Not on file documented as of this encounter Last Filed Vital Signs Vital Sign Reading Time Taken Comments Blood Pressure 120/64 10/21/2016 10:12 AM PEDIATRIC CLINICAL NURSE SPECIALIST Pulse 67 10/21/2016 10:12 AM PEDIATRIC CLINICAL NURSE SPECIALIST Temperature - - Respiratory Rate - - Oxygen Saturation - - Inhaled Oxygen Concentration - - Weight - - Height - - Body Mass Index - - documented in this encounter Progress Notes * Pb Su MD - 10/21/2016 11:30 AM CST Reason For Visit Pt has lower back pain X1 day. Reason For Visit: Acute Visit History of Present Illness Back Pain Lumbar, Chronic (Brief): The patient is being seen for worsening symptoms of and Initial evaluation: this episode! chronic low back pain. The last clinic visit was 6 months month(s) ago. Nochanges in management were made at the last visit. Symptoms: back pain, back stiffness and decreased range of motion of the back, but no leg pain, no leg numbness, no foot numbness and no foot weakness. Symptoms are located in the mid back bilaterally. There is no radiation. Onset was sudden. The symptoms occur intermittently. The episodes occur monthly. The patient describes symptoms as moderatein severity and unchanged. Exacerbating factors: weight bearing, back motion, lifting and straining. Relieving factors: rest, heat and physical therapy. Current treatment includes activity modification and heat. By report, there is fair compliance with treatment. Initial diagnosis of chronic low back pain was 1 year(s) ago. Since diagnosis the disease has been unchanged. Recently, the disease hasbeen unchanged. He was previously evaluated in this clinic. Past evaluation has included lumbar spine x-ray. Past treatment has included activity modification, heat and physical therapy. Review of Systems Constitutional: feeling poorly, but no fever, no recent weight gain, no chills, not feeling tired, no recent weight loss and no headache. ENT: normal. Cardiovascular: Normal. Respiratory: Normal. Gastrointestinal: Normal. Genitourinary: Normal. Integumentary: dry skin. Musculoskeletal: joint stiffness. Psychiatric: Normal. Active Problems 1. Arm numbness left (782.0) (R20.0) 2. Atrial fibrillation (427.31) (I48.91) 3. Bilateral hand pain (729.5) (M79.641,M79.642) 4. Cough (786.2) (R05) 5. Erectile dysfunction (607.84) (N52.9) 6. Fatigue (780.79) (R53.83) 7. Fatigue (780.79) (R53.83) 8. Hyperlipidemia (272.4) (E78.5) 9. Knee pain, right (719.46) (M25.561) 10. Knee pain, unspecified laterality 11. Left arm pain (729.5) (M79.602) 12. Lower back pain (724.2) (M54.5) 13. Muscle spasm (728.85) (M62.838) 14. Obstructive sleep apnea (327.23) (G47.33) 15. Obstructive sleep apnea of adult (327.23) (G47.33) 16. Osteoarthritis (715.90) (M19.90) 17. Pain in joint of left shoulder (719.41) (M25.512) 18. Premature ventricular contractions (427.69) (I49.3) 19. Right knee pain (719.46) (M25.561) 20. Routine history and physical examination of adult (V70.0) (Z00.00) 21. Screening for prostate cancer (V76.44) (Z12.5) 22. Vitamin d deficiency (268.9) (E55.9) Past Medical History 1. History of Arthritis (V13.4) 2. History Of Hypercholesterolemia (V12.29) (Z86.39) 3. History of hyperlipidemia (V12.29) (Z86.39) 4. History of Primary snoring (786.09) (R06.83) 5. History of Weakness of limb (729.89) (M62.81) 6. History of Wears glasses (V49.89) (Z97.3) Surgical History 1. Denied: History of Surgery Family History Mother 1. No pertinent family history Father 2. Family history of Social History ?? Alcohol Use (History) ?? Five children ?? Former smoker (V15.82) (Z87.891) ? Occupation Current Meds 1. Atorvastatin Calcium 20 MG Oral Tablet; TAKE 1 TABLET DAILY DIRECTED; Therapy: [id number] to (Evaluate:42Rvr9161) Requested for: 13Jnt3114; Last Rx:[id number] Ordered Rx By: Pb Su; Dispense: 60 Days ; #:60 Tablet; Refill: 2; For: PMH: History of hyperlipidemia; GAYLE = N; Verified Transmission to [facility]; Last Updated By: Marci Barber; 07/16/2016 2:44:47 PM 2. Claritin 10 MG Oral Tablet; Therapy: (Recorded:33Uzu4028) to Recorded Dispense: 0 Days ; #: Sufficient TABS; Refill: 0; GAYLE = N; Record; Last Updated By: Denisse Ceja; 06/29/2013 7:41:31 AM Allergies 1. Acetaminophen-Codeine #3 TABS Recorded By: Charu Snowden; 07/31/2012 8:27:16 AM Vitals Recorded: 21Oct2016 10:12AM Temperature 98.4 F Heart Rate 67 Systolic 120 Diastolic 64 O2 Saturation 96 Physical Exam Constitutional General appearance: Abnormal. acutely ill, uncomfortable and appears tired, but well developed and well nourished. Neck Neck: Supple, symmetric, trachea midline, no masses. Pulmonary Respiratory effort: No increased work of breathing or signs of respiratory distress. Auscultation of lungs: Clear to auscultation. Cardiovascular Auscultation of heart: Normal rate and rhythm, normal S1 and S2, no murmurs. Abdomen Abdomen: Non-tender, no masses. Liver and spleen: No hepatomegaly or splenomegaly. Musculoskeletal Gait and station: Normal. Skin Skin and subcutaneous tissue: Abnormal. dry skin and fair complexion. Neurologic Cranial nerves: Cranial nerves 2-12 intact. Cortical function: Normal mental status. Psychiatric Judgment and insight: Normal. Orientation to person, place and time: Normal. Recent and remote memory: Intact. Lumbosacral Spine: Appearance: Normal. Tenderness: level L1-L5 lumbar spine. Flexion was restricted. Extension was restricted. Left lateral flexion was restricted. Right lateral flexion was restricted. Rotation to the left was not restricted. Rotation to the right was not restricted. Motor: Normal.Lower Extremity Motor Testing: Lower Extremity Motor Exam: Foot and ankle strength was normal bilaterally. Knee strength was normal bilaterally. Hip strength was normal bilaterally. Special Tests: Negative except. Counseling The patient and 10-21-2016 was counseled regarding diagnostic results, instructions for management,risk factor reductions, prognosis, impressions, risks and benefits of treatment options and importance of compliance with treatment. total time of encounter was 20 min minutes and 10 min minutes was s pent counseling. Assessment 1. Muscle spasm (728.85) (M62.838) 2. Lower back pain (724.2) (M54.5) Plan Hyperlipidemia 1. CMP / Liver; Status:Active; Requested for:21Oct2016; Perform:[facility]; Due:00Zmn1154;Ordered; For:Hyperlipidemia; Ordered By:Pb Su; 2. Lipid Profile; Status:Active; Requested for:21Oct2016; Perform:[facility]; Due:09Ssk7542;Ordered; For:Hyperlipidemia; Ordered By:Pb Su; Lower back pain 3. Schedule Follow up 2 weeks Outpatient Follow-up Status: Hold For - Scheduling Requested for: 21Oct2016 Ordered; For: Lower back pain; Ordered By: Pb Su Performed: Due: 31Udv5923 4. Begin a walking program. Start with walks lasting 10 minutes and slowly work up to 30-40 minutes as pain allows.; Status:Complete; Done: 21Oct2016 04:28PM Ordered; For:Lower back pain; Ordered By:Pb Su; 5. Pre-printed Instructions given to patient; Status:Complete; Done: 21Oct2016:PM Ordered; For:Lower back pain; Ordered By:Pb Su; 6. Use warm packs 4 times a day for 15 minutes.; Status:Complete; Done: 21Oct2016:PM Ordered; For:Lower back pain; Ordered By:Pb Su; 7. We recommend that you avoid straining your back while lifting.; Status:Complete; Done: 21Oct2016:28PM Ordered; For:Lower back pain; Ordered By:Pb Su; 8. We suggest that you use a lumbar support cushion when sitting or driving.; Status:Complete; Done: 21Oct2016:28PM Ordered; For:Lower back pain; Ordered By:Pb Su; 9. You are at increased risk for constipation.; Status:Complete; Done: 21Oct2016:28PM Ordered; For:Lower back pain; Ordered By:Pb Su; 10. You may apply heat using a heating pad turned on low or medium.; Status:Complete; Done: 21Oct2016:PM Ordered; For:Lower back pain; Ordered By:Pb Su; 11. Call if: The pain is not better in 2 days.; Status:Complete; Done: 21Oct2016 04:28PM Ordered; For:Lower back pain; Ordered By:Pb Su; 12. Call if: The pain seems worse.; Status:Complete; Done: 21Oct2016 04:28PM Ordered; For:Lower back pain; Ordered By:Pb Su; 13. Call if: You are constipated.; Status:Complete; Done: 21Oct2016 04:28PM Ordered; For:Lower back pain; Ordered By:Pb Su; 14. Call if: You get a headache that does not go away with your usual treatment.; Status:Complete; Done: 21Oct2016 04:28PM Ordered; For:Lower back pain; Ordered By:Pb Su; 15. Call if: You get a rash.; Status:Complete; Done: 21Oct2016 04:28PM Ordered; For:Lower back pain; Ordered By:Pb Su; 16. Call if: You get a severe headache that seems different from your usual ones.; Status:Complete; Done: 21Oct2016 04:28PM Ordered; For:Lower back pain; Ordered By:Pb Su; 17. Call if: You have pain or numbness from your back to your hip and leg.; Status:Complete; Done: 21Oct2016 04:28PM Ordered; For:Lower back pain; Ordered By:Pb Su; 18. Call if: You lose weight without trying to.; Status:Complete; Done: 21Oct2016:28PM Ordered; For:Lower back pain; Ordered By:Pb Su; 19. Call if: Your temperature is higher than 101F.; Status:Complete; Done: 21Oct2016 04:28PM Ordered; For:Lower back pain; Ordered By:Pb Su; 20. Call 919 if: You have any loss of bowel or bladder control.; Status:Complete; Done: 21Oct2016 04:28PM Ordered; For:Lower back pain; Ordered By:Pb Su; 21. Call 911 if: You have signs of dangerous pressure on the nerves in your pelvis.; Status:Complete; Done: 21Oct2016 04:28PM Ordered; For:Lower back pain; Ordered By:Pb Su; 22. Seek Immediate Medical Attention if: You limb feels cold, numb or tingles.; Status:Complete; Done: 21Oct2016 04:28PM Ordered; For:Lower back pain; Ordered By:Pb Su; 23. Seek Immediate Medical Attention if: Your limb becomes weak.; Status:Complete; Done: 21Oct2016 04:28PM Ordered; For:Lower back pain; Ordered By:Pb Su; Lower back pain, Muscle spasm 24. Cyclobenzaprine HCl - 10 MG Oral Tablet; TAKE 1 TABLET 3 TIMES DAILY NEEDED Rx By: Pb Su; Dispense: 10 Days ; #:1 X 30 Tablet Bottle; Refill: 2; For: Lower back pain, Muscle spasm; GAYLE = N; Verified Transmission to [facility] # [id number]; Last Updated By: [employer]; 10/21/2016 11:35:26 AM Signatures Electronically signed by : Pb Su M.D.; Oct 21 2016 4:29PM PEDIATRIC CLINICAL NURSE SPECIALIST (Author) documented in this encounter Plan of Treatment Not on file documented as of this encounter Visit Diagnoses Not on filedocumented in this encounter Care Teams Carding Machine Operator Relationship Specialty Start Date End Date Pb Su MD [address] [place] [address] PCP - General 04/26/16 documented as of this encounter
--- OUTSIDE RECORDS SUMMARY | 2024-11-14 10:14 | XMS_ITS | Encounter Summary ---
Author Organization [facility] Address [address] [place] [address]. [place], [place] [address] [place] [address] Care Team Providers Care Wind Farm Electrical Systems Designer Name Role Phone Pb Su MD Primary Care Provider [phone] Encounter Details Date Type Department Care Team (Latest Contact Info) Description 10/22/2017 Abstract [facility] Social History Tobacco Use Types [...] on filedocumented in this encounter Care Teams Wind Farm Electrical Systems Designer Relationship Specialty Start Date End Date Pb Su MD [address] [place] [address] PCP - General 04/26/16 documented as of this encounter
--- OUTSIDE RECORDS SUMMARY | 2024-11-14 10:14 | XMS_ITS | Encounter Summary ---
Author Organization [facility] Address [address] [place] [address]. [place], [place] [address] [place] [address] Care Team Providers Care Cdl Bulk Driver Name Role Phone Pb Su MD Primary Care Provider [phone] Encounter Details Date Type Department Care Team (Latest Contact Info) Description 09/29/2018 Scan [facility] , Vahe Whitehead, Social History Tobacco Use Types Packs/Day Years [...] on filedocumented in this encounter Care Teams Cdl Bulk Driver Relationship Specialty Start Date End Date Pb Su MD [address] [place] [address] PCP - General 04/26/16 documented as of this encounter
--- OUTSIDE RECORDS SUMMARY | 2024-11-14 10:14 | XMS_ITS | Encounter Summary ---
Author Organization [facility] Address [address] [place] [address]. [place] [address] [place] [address] Care Team Providers Care Building Inspector Name Role Phone Pb Su MD Primary Care Provider [phone] Encounter Details Date Type Department Care Team (Latest Contact Info) Description 05/23/2016 Abstract [facility] Social History Tobacco Use Types Packs/Day Years Used Date Smoking Tobacco: Never Assessed Sex and Gender Information Value Date Recorded Sex Assigned at Not on file Legal Sex Male 7:22 PM CDT Gender Identity Not on file Sexual Orientation Not on file documented as of this encounter Progress Notes * Vahe Whitehead Md, MD - 05/23/2016 1:19 PM CDT Message Message: Pt called requesting lab results. Discussed lab results with pt. Advised I would have Dr. Su review and make recommendations and then I would call him back, or we would send him results. Pt verbalized understanding and in agreement with plan. Lab results given to Dr. Su. depRN Signatures Electronically signed by : Tiffanie Murillo R.N.; May 23 2016 1:21PM SKID WRAPPER (Author) documented in this encounter Plan of Treatment Not on file documented as of this encounter Visit Diagnoses Not on filedocumented in this encounter Care Teams Building Inspector Relationship Specialty Start Date End Date Pb Su MD [address] [place] [address] PCP - General 04/26/16 documented as of this encounter
--- OUTSIDE RECORDS SUMMARY | 2024-11-14 10:14 | XMS_ITS | Encounter Summary ---
Author Organization [facility] Address [address] [place] [address]. [place] [address] [place] [address] Care Team Providers Care Industrial Radiographer Name Role Phone Pb Su MD Primary Care Provider [phone] Encounter Details Date Type Department Care Team (Latest Contact Info) Description 01/19/2018 Abstract [facility] Sonja Joiner MD [address] [place] [id number] Social History Tobacco Use Types Packs/Day Years [...] on filedocumented in this encounter Care Teams Industrial Radiographer Relationship Specialty Start Date End Date Pb Su MD [address] [place] [address] PCP - General 04/26/16 documented as of this encounter
--- OUTSIDE RECORDS SUMMARY | 2024-11-14 10:14 | XMS_ITS | Encounter Summary ---
Author Organization [facility] Address [address] [place] [address]. [place], [place] [address] [place] [address] Care Team Providers Care Log Inspector Name Role Phone Pb Su MD Primary Care Provider [phone] Encounter Details Date Type Department Care Team (Latest Contact Info) Description 12/25/2016 Abstract [facility] Social History Tobacco Use Types [...] on filedocumented in this encounter Care Teams Log Inspector Relationship Specialty Start Date End Date Pb Su MD [address] [place] [address] PCP - General 04/26/16 documented as of this encounter
--- OUTSIDE RECORDS SUMMARY | 2024-11-14 10:14 | XMS_ITS | Encounter Summary ---
Author Organization [facility] Address [address] [place] [address]. [place], [place] [address] [place] [address] Care Team Providers Care Byproducts Supervisor Name Role Phone Pb Su MD Primary Care Provider [phone] Encounter Details Date Type Department Care Team (Latest Contact Info) Description 05/01/2016 Abstract [facility] Social History Tobacco Use Types Packs/Day Years Used Date Smoking Tobacco: Never Assessed Sex and Gender Information Value Date Recorded Sex Assigned at Not on file Legal Sex Male 7:22 PM CDT Gender Identity Not on file Sexual Orientation Not on file documented as of this encounter Progress Notes * Pb Su MD - 05/01/2016 7:29 PM CDT Verified Results Free / Total Testosterone 26Apr2016 10:13AM Pb Su Test Name Result Flag Reference TESTOSTERONE,TOTAL,LC/MS/MS 442 Reference range: 250 to 1100 Unit: ng/dL For more information on this test, go to http://education.[employer]faq/ TotalTestosteroneLCMSMS Test Performed by [facility], [address] [place] [address] Haresh Duffy M.D., Ph.D., Director of Laboratories , [facility]IA [id number] TESTOSTERONE,FREE 64.5 Reference range: 35.0 to 155.0 Unit: pg/mL Test Performed by [facility], [address] [place] [address] Haresh Duffy M.D., Ph.D., Director of [employer] , [facility] [id number] documented in this encounter Plan of Treatment Not on file documented as of this encounter Visit Diagnoses Not on filedocumented in this encounter Care Teams Byproducts Supervisor Relationship Specialty Start Date End Date Pb Su MD [address] [place] [address] PCP - General 04/26/16 documented as of this encounter
--- OUTSIDE RECORDS SUMMARY | 2024-11-14 10:14 | XMS_ITS | Encounter Summary ---
Author Organization [facility] Address [address] [place] [address]. [place] [address] [place] [address] Care Team Providers Care Indirect Sales Representative Name Role Phone Pb Su MD Primary Care Provider [phone] Encounter Details Date Type Department Care Team (Latest Contact Info) Description 04/30/2016 Abstract [facility] Social History Tobacco Use Types Packs/Day Years Used Date Smoking Tobacco: Never Assessed Sex and Gender Information Value Date Recorded Sex Assigned at Not on file Legal Sex Male 7:22 PM CDT Gender Identity Not on file Sexual Orientation Not on file documented as of this encounter Progress Notes * Pb Su MD - 04/30/2016 8:35 PM CDT Verified Results Vitamin D 25 - Hydroxy 26Apr2016 10:13AM Pb Su Test Name Result Flag Reference Vitamin D 25-Hydroxy 36 NG/ML 30-100 SUPPLEMENTING WITH VITAMIN D2 MAY RESULT IN FALSELY LOW RESULTS, CLINICAL CORRELATION NEEDED. INTERPRETATION DEFICIENT <20 INSUFFICIENT 20-30 SUFFICIENT 30-100 POTENTIAL INTOXICATION >100 TESTING PERFORMED AT [address] [address] documented in this encounter Plan of Treatment Not on file documented as of this encounter Visit Diagnoses Not on filedocumented in this encounter Care Teams Indirect Sales Representative Relationship Specialty Start Date End Date Pb Su MD [address] [place] [address] PCP - General 04/26/16 documented as of this encounter
--- OUTSIDE RECORDS SUMMARY | 2024-11-14 10:14 | XMS_ITS | Encounter Summary ---
Author Organization [facility] Address [address] [place] [address]. [place], [place] [address] [place] [address] Care Team Providers Care Cyber Defense Incident Responder Name Role Phone Pb Su MD Primary Care Provider [phone] Encounter Details Date Type Department Care Team (Latest Contact Info) Description 01/14/2018 Abstract [facility] Social History Tobacco Use Types [...] on filedocumented in this encounter Care Teams Cyber Defense Incident Responder Relationship Specialty Start Date End Date Pb Su MD [address] [place] [address] PCP - General 04/26/16 documented as of this encounter
--- OUTSIDE RECORDS SUMMARY | 2024-11-14 10:14 | XMS_ITS | Clinical Summary ---
Author Organization [facility] Address [address] [place] [address]. [place], [place] [address] [place] [address] Care Team Providers Care Instrumentation Engineering Technician Name Role Phone Pb Su MD Primary Care Provider Social History Tobacco Use Types Packs/Day Years Used Date Smoking Tobacco: Never Assessed Sex and Gender Information Value Date Recorded Sex Assigned at Not on file Legal Sex Male 7:22 PM CDT Gender Identity Not on file Sexual Orientation Not on file Last Filed Vital Signs Vital Sign Reading Time Taken Comments Blood Pressure 120/64 10/21/2016 10:12 AM INTAKE SPECIALIST Pulse 67 10/21/2016 10:12 AM INTAKE SPECIALIST Temperature - - Respiratory Rate - - Oxygen Saturation - - Inhaled Oxygen Concentration - - Weight 102.5 kg (226 lb) 04/26/2016 8:24 AM CDT Height 182.9 cm (6') 03/20/2015 6:53 AM CDT Body Mass Index 30.65 03/20/2015 6:53 AM CDT Plan of Treatment Health Maintenance Due Date Last Done Comments Colorectal Cancer Screening Colonoscopy (10 Years) 1963 Annual Physical 1966 Hepatitis C 1981 DTaP, Tdap and Td Vaccines ( 1 - Tdap) 1982 Zoster Vaccines (1 of 2) 2013 COVID-19 Vaccine ( - 2023-2 5 season) 2024 Influenza Adult (#1) 2024 RSV Immunization or 60+ Years (1 - 1-dose 75+ series) 2038 Meningococcal Vaccine Aged Out No himanshu cherry eligible based on patient's age to complete this topic Pneumococcal Vaccine: Pediat rics (0 to 5 Years) and At-Risk Patients (6 to 64 Years) Aged Out No longer eligible b ased on patient's age to complete this topic RSV Immunizations Under 20 Months Aged Out No longer eligible based on patient's age to complete this topic Care Teams Instrumentation Engineering Technician Relationship Specialty Start Date End Date Pb Su MD [address] [place], [place] [address] PCP - General 04/26/16
--- OUTSIDE RECORDS SUMMARY | 2024-11-14 10:14 | XMS_ITS | Encounter Summary ---
Author Organization [facility] Address [address] [place] [address]. [place], [place] [address] [place] [address] Care Team Providers Care Filling Station Equipment Mechanic Name Role Phone Pb Su MD Primary Care Provider [phone] Encounter Details Date Type Department Care Team (Latest Contact Info) Description 11/11/2016 Abstract [facility] Social History Tobacco Use [...] on filedocumented in this encounter Care Teams Filling Station Equipment Mechanic Relationship Specialty Start Date End Date Pb Su MD [address] [place] [address] PCP - General 04/26/16 documented as of this encounter
--- OUTSIDE RECORDS SUMMARY | 2024-11-14 10:14 | XMS_ITS | Encounter Summary ---
Author Organization [facility] Address [address] [place] [address]. [place], [place] [id number] [place] [id number] Care Team Providers Care Review Analyst Name Role Phone Pb Su MD Primary Care Provider [phone] Encounter Details Date Type Department Care Team (Latest Contact Info) Description 06/05/2016 Abstract [facility] Medical Group Social History Tobacco Use [...] on filedocumented in this encounter Care Teams Review Analyst Relationship Specialty Start Date End Date Pb Su MD [address] [place] [address] PCP - General 04/26/16 documented as of this encounter
--- OUTSIDE RECORDS SUMMARY | 2024-11-14 10:14 | XMS_ITS | Encounter Summary ---
Author Organization [facility] Address [address] [place] [address]. [place], [place] [id number] [place] [address] Care Team Providers Care Plant Technical Specialist Name Role Phone Pb Su MD Primary Care Provider [phone] Encounter Details Date Type Department Care Team (Latest Contact Info) Description 05/28/2016 Abstract [facility] Medical Group Social History Tobacco Use Types Packs/Day Years Used Date Smoking Tobacco: Never Assessed Sex and Gender Information Value Date Recorded Sex Assigned at Not on file Legal Sex Male 7:22 PM CDT Gender Identity Not on file Sexual Orientation Not on file documented as of this encounter Progress Notes * Vahe Whitehead Md, MD - 05/28/2016 9:16 AM CDT Message Call placed to pt to discuss lab results/PCP comments (increased HLP - need to restart statin; Vit D low normal - VIt D3 5000 IU cap one daily). No answer. LMOM for pt to call and speak with me. Lab orders for repeat Lipid panel, CMP, CK 6 weeks after restarting statin. depRN Plan Hyperlipidemia ?? Compr Metabolic Prof ( CMP ); Status:Active; Requested for:[id number]; ?? Creatine Kinase ( CK ) ( CPK ); Status:Active; Requested for:[id number]; ?? Lipid Profile; Status:Active; Requested for:[id number]; Signatures Electronically signed by : Tiffanie Murillo R.N.; May 28 2016 9:22AM PARKING LOT ATTENDANT AND CASHIER (Author) documented in this encounter Plan of Treatment Not on file documented as of this encounter Visit Diagnoses Not on filedocumented in this encounter Care Teams Plant Technical Specialist Relationship Specialty Start Date End Date Pb Su MD [address] '[place] [address] PCP - General 04/26/16 documented as of this encounter
--- OUTSIDE RECORDS SUMMARY | 2024-11-14 10:14 | XMS_ITS | Encounter Summary ---
Author Organization [facility] Address [address] [place] [address]. [place], [place] [id number] [place] [address] Care Team Providers Care Beverage Sales Consultant Name Role Phone Pb Su MD Primary Care Provider [phone] Encounter Details Date Type Department Care Team (Latest Contact Info) Description 06/03/2016 Abstract [facility] Medical Group Social History Tobacco Use [...] on filedocumented in this encounter Care Teams Beverage Sales Consultant Relationship Specialty Start Date End Date Pb Su MD [address] [place] [address] PCP - General 04/26/16 documented as of this encounter
--- OUTSIDE RECORDS SUMMARY | 2024-11-14 10:14 | XMS_ITS | Encounter Summary ---
Author Organization [facility] Address [address] [place] [address]. [place], [place] [address] [place] [address] Care Team Providers Care Dietary Manager Name Role Phone Pb Su MD Primary Care Provider [phone] Encounter Details Date Type Department Care Team (Latest Contact Info) Description 01/15/2017 Abstract [facility] Medical Group Social History Tobacco [...] on filedocumented in this encounter Care Teams Dietary Manager Relationship Specialty Start Date End Date Pb Su MD [address] [place] [address] PCP - General 04/26/16 documented as of this encounter
--- OUTSIDE RECORDS SUMMARY | 2024-11-14 10:14 | XMS_ITS | Encounter Summary ---
Author Organization [facility] Address [address] [place] [address]. [place] [address] [place] [address] Care Team Providers Care Cook Chill Technician Name Role Phone Pb Su MD Primary Care Provider [phone] Encounter Details Date Type Department Care Team (Latest Contact Info) Description 06/04/2016 Abstract [facility] Medical Group Social History Tobacco Use Types Packs/Day Years Used Date Smoking Tobacco: Never Assessed Sex and Gender Information Value Date Recorded Sex Assigned at Not on file Legal Sex Male 7:22 PM CDT Gender Identity Not on file Sexual Orientation Not on file documented as of this encounter Progress Notes * Vahe Whitehead Md, MD - 06/04/2016 1:36 PM CDT Message Message: I spoke with pt previously bc he had not heard from his lab results. Reviewed the labs with pt (pt had been off his atorvastatin x 6 months at least). Gave labs to Dr. Su for review/recommendations. Dr. Su advises pt restart his atorvastatin 20mg daily; repeat labs 6 weeks after restarting med; OTC Vit D3 5000 IU cap - one daily. I called pt on 05-28-16, 05-29-16, 05-30-16 and there was no answer. I called again today and no answer again. LMOM advising of Dr. Su's comment and that I would mail lab orders and lab results to pt. Requested pt call and LMOM for me advising he received my message. (Will mail same directions to pt.) depRN Signatures Electronically signed by : Tiffanie Murillo R.N.; Jun 04 2016 1:39PM PRODUCTION ENGINE REPAIRER (Author) documented in this encounter Plan of Treatment Not on file documented as of this encounter Visit Diagnoses Not on filedocumented in this encounter Care Teams Cook Chill Technician Relationship Specialty Start Date End Date Pb Su MD [address] [place] [address] PCP - General 04/26/16 documented as of this encounter
--- OUTSIDE RECORDS SUMMARY | 2024-11-14 10:14 | XMS_ITS | Continuity of Care Document ---
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 It does not include entries that were removed or entered in error. Problem Status Onset Date Problem Type Date of Resolution Comments Source joint pain, localized in the knee Active Condition DoD patellofemoral syndrome Active Condition DoD trapezius muscle strain Inactive Condition [facility] visit for: services physical separation Inactive Condition Recurrent knee pain as noted., else no known duty related injuries or illnesses at this time [facility] joint instability ankle / foot Active Condition [facility] Other Physical Therapy Active Condition DoD Medications Combined list of outpatient medications from Department of [employer] and [facility] facilities.Medications provided include 1) outpatient medications from the last 15 months, and 2) patient-reported medications. Medication Details Route Status Patient Instructions Prescription Expires Prescription Number Last Dispense Date Ordering Provider Order Date Order Qty Source FLUARIX QUAD [id number] (influenza virus vaccine quadrival [id number](6 mos and up)/PF), 60MCG/.5ML, SYRINGE, INTRAMUSC, GLAXOSMITHK LINE, .5 ml SYRINGE Active [id number] 2022 0.5 Pharmac y Data Transac tion Service Facilit y ROSUVASTATI N CALCIUM (rosuvastat in calcium), 5 MG, TABLET, ORAL, CAMBER PHARMACE, 90 ea. BOTTLE Active [id number] 4 2023 90 Pharmac y Data Transac tion Service Facilit y ROSUVASTATI N CALCIUM (rosuvastat in calcium), 5 MG, TABLET, ORAL, CAMBER PHARMACE, 90 ea. BOTTLE Active [id number] 4 2023 90 Pharmac y Data Transac tion Service Facilit y Allergies, Adverse Reactions, Alerts Combined list of allergies from Department of [employer] and Veterans Affairs facilities. It does not include entries that were removed or entered in error. Substance Category Reaction Severity Reaction type Status Date Reported Comments Source ACETAMINOPHEN W-CODEINE (CODEINE PHOS/ACETAMINOP HEN) Drug allergy (disorder) Unknown active [address] [place] [address] Medical Group Immunizations Combined list of available immunizations from the Department of Defense and Veterans Affairs facilities. Immunization Series Date Given Administered By Site Reaction Lot Number CVX Code Drug Interactive Media Project Manager Status Comments Source COVID-19, mRNA, LNP-S, PF, [...] antigen)-reti red CODE 1 2005 Unknown, Provider [id number] complet ed influenza virus vaccine, split virus (incl. purified surface antigen)- retired CODE DoD influenza virus vaccine, split virus (incl. purified surface antigen)-reti red CODE 1 2004 AP [id number] Sanofi Pasteur ([facility]) complet ed influenza virus vaccine, split virus (incl. purified surface antigen)- retired CODE DoD influenza virus vaccine, split virus (incl. purified surface antigen)-reti red CODE 0 2004 [id number] Sanofi Pasteur ([facility]) complet ed influenza virus vaccine, split virus (incl. purified surface antigen)- retired CODE DoD influenza virus vaccine, whole virus 0 2002 [id number] [employer] (PWJ) complet ed influenza virus vaccine, whole virus DoD influenza virus vaccine, whole virus 0 2001 [id number] Sanofi Pasteur ([facility]) complet ed influenza virus vaccine, whole virus DoD yellow fever vaccine 0 2001 [id number] [place] (CON) complet ed yellow fever vaccine DoD varicella virus vaccine 0 2001 POS HX 21 () Not Given varicella virus vaccine DoD typhoid Vi capsular polysaccharid e vaccine 0 2001 [id number] Sanofi Pasteur ([facility]) complet ed typhoid Vi capsular polysacch aride vaccine DoD tuberculin skin test; purified protein derivative solution, intradermal 1 2001 Unknown, Provider [id number] Sanofi Pasteur ([facility]) complet ed tuberculi n skin test; purified protein derivativ e solution, intraderm al DoD influenza virus vaccine, whole virus 0 2000 [id number] Sanofi Pasteur ([facility]) complet ed influenza virus vaccine, whole virus DoD influenza virus vaccine, whole virus 0 [id number] [employer]yer[employer] (Inactive) (MD) complet ed influenza virus vaccine, whole virus DoD hepatitis A vaccine, adult dosage 2 1998 [id number] [employer] ([facility]) complet ed hepatitis A vaccine, adult dosage DoD tuberculin skin test; purified protein derivative solution, intradermal 1 1998 Unknown, Provider [phone] [phone] [facility] ([facility]) complet ed tuberculi n skin test; purified protein derivativ e solution, intraderm al DoD influenza virus vaccine, whole virus 0 [id number] 16 [employer] (Inactive) (MD) complet ed influenza virus vaccine, whole virus DoD tetanus and diphtheria toxoids, adsorbed, preservative free, for adult use (2 Lf of tetanus toxoid and 2 Lf of diphtheria toxoid) 0 1996 [id number] Kerrie (LED) comple t ed tetanus and diphtheri a toxoids, adsorbed, preservat lamont free, for adult use (2 Lf of tetanus toxoid and 2 Lf of diphtheri a toxoid) DoD influenza virus vaccine, whole virus 0 [id number] 16 [employer]yer[employer] (Inactive) (MD) complet ed influenza virus vaccine, whole virus DoD typhoid vaccine, parenteral, other than acetone-kille d, dried 0 1996 [id number] Merieux (IM) complet ed typhoid vaccine, parentera l, other than acetone-k illed, dried DoD hepatitis A vaccine, adult dosage 1 1996 [id number] Merck (MSD) complet ed hepatitis A vaccine, adult dosage DoD influenza virus vaccine, whole virus 0 1995 [id number] 16 Kerrie (LED) comple t ed influenza [...] Source [employer](Phy sical Therapy) OUTPATIENT [id number] Left Ankle Aircast SABINE SPEARS 03/11 Released w/o Limitations [employer](P hysical Therapy ) [employer](Phy sical Therapy Resource Source) OUTPATIENT [id number] MIKE LARSON 03/19 Released w/o Limitations [employer](P hysical Therapy Resourc e Source) [employer](Phy sical Therapy Resource Source) OUTPATIENT [id number] SERENITY ALMARAZ 03/21 Released w/o Limitations [employer](P hysical Therapy Resourc e Source) [employer](Phy sical Therapy Resource Source) OUTPATIENT [id number] SERENITY ALMARAZ 03/25 Released w/o Limitations [employer](P hysical Therapy Resourc e Source) [employer]([facility] Part) OUTPATIENT [id number] 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 MARIUSZ BALL 03/27 Released w/o Limitations [employer](X Primary Practic e Clinic Part) [employer](Phy sical Therapy Resource Source) OUTPATIENT [id number] SERENITY ALMARAZ 03/31 Released w/o Limitations [employer](P hysical Therapy Resourc e Source) [employer](Phy sical Therapy Resource Source) OUTPATIENT [id number] SERENITY ALMARAZ 04/03 Released w/o Limitations [employer](P hysical Therapy Resourc e Source) [employer](Phy sical Therapy Resource Source) OUTPATIENT [id number] MIKE Eddy 04/08 Released w/o Limitations [employer](P hysical Therapy Resourc e Source) [employer](Phy sical Therapy) OUTPATIENT [id number] SABINE SPEARS 04/14 Released w/o Limitations [employer](P hysical Therapy ) [employer](Phy sical Therapy Resource Source) OUTPATIENT [id number] SERENITY ALMARAZ 04/28 Released w/o Limitations [employer](P hysical Therapy Resourc e Source) [employer](Phy sical Therapy Resource Source) OUTPATIENT [id number] SERENITY ALMARAZ 04/30 Released w/o Limitations [employer](P hysical Therapy Resourc e Source) [employer](Phy sical Therapy Resource Source) OUTPATIENT [id number] MIKE LARSON 05/14 Released w/o Limitations [employer](P hysical Therapy Resourc e Source) [employer] ([facility]Amb Care Clinic) OUTPATIENT [id number] back/ne ck pain x 1wk. no injury AFTAB FONTENOT 10/30 Released w/o Limitations [employer] ([facility])(A Care Clinic) [employer] ([facility])(Phy sical Therapy) OUTPATIENT [id number] Pas entered the order JODY ZAMORA 04/29 Released w/o Limitations [employer] ([facility])(P hysical Therapy ) [employer] ([facility])(Phy sical Therapy) OUTPATIENT [id number] DILEEP PHILLIPS 05/02 Released w/o Limitations [employer] ([facility])(P hysical Therapy ) [employer] ([facility])(Phy sical Therapy) OUTPATIENT [id number] GALLARDO JULIO Dorian 05/04 Released w/o Limitations [employer] ([facility])(P hysical Therapy ) [employer] ([facility])(Phy sical Therapy) OUTPATIENT [id number] DILEEP PHILLIPS 05/09 Released w/o Limitations [employer] ([facility])(P hysical Therapy ) [employer] ([facility])(Phy sical Therapy) OUTPATIENT [id number] CARLA HAIRSTON 05/12 Released w/o Limitations [employer] ([facility])(P hysical Therapy ) [employer] ([facility])(Phy sical Therapy) OUTPATIENT [id number] CARAL HAIRSTON 05/16 Released w/o Limitations [employer] ([facility])(P hysical Therapy ) [employer] ([facility])(Phy sical Therapy) OUTPATIENT [id number] DILEEP PHILLIPS 05/18 Released w/o Limitations [employer] ([facility])(P hysical Therapy ) [employer] ([facility])(Phy sical Therapy) OUTPATIENT [id number] JODY ZAMORA 05/20 Released w/o Limitations [employer] ([facility])(P hysical Therapy ) [facility] Outpatient Encounter [id number] 05/24 [facility] Procedures Combined list of: 1) Procedures from Department of Veterans Affairs facilities going back up to thelast 18 months, not all VA non-surgical procedures are included; 2) All procedures from the Department of Defense facilities. Procedure Procedure Type Code Date Perfomer Comments [facility] e PHYSICAL THERAPY RE-EVALUATION 8 [facility] THERAPEUTIC PROCEDURE, 1 OR MORE AREAS, EACH 15 MINUTES; THERAPEUTIC EXERCISES TO DEVELOP STRENGTH AND ENDURANCE, RANGE OF MOTION AND FLEXIBILITY 8 [facility] THERAPEUTIC PROCEDURE, 1 OR MORE AREAS, EACH 15 MINUTES; THERAPEUTIC EXERCISES TO DEVELOP STRENGTH AND ENDURANCE, RANGE OF MOTION AND FLEXIBILITY 8 [facility] THERAPEUTIC PROCEDURE, 1 OR MORE AREAS, EACH 15 MINUTES; THERAPEUTIC EXERCISES TO DEVELOP STRENGTH AND ENDURANCE, RANGE OF MOTION AND FLEXIBILITY 8 [facility] THERAPEUTIC PROCEDURE, 1 OR MORE AREAS, EACH 15 MINUTES; THERAPEUTIC EXERCISES TO DEVELOP STRENGTH AND ENDURANCE, RANGE OF MOTION AND FLEXIBILITY 8 DoD THERAPEUTIC PROCEDURE, 1 OR MORE AREAS, EACH 15 MINUTES; THERAPEUTIC EXERCISES TO DEVELOP STRENGTH AND ENDURANCE, RANGE OF MOTION AND FLEXIBILITY 8 [facility] THERAPEUTIC PROCEDURE, 1 OR MORE AREAS, EACH 15 MINUTES; THERAPEUTIC EXERCISES TO DEVELOP STRENGTH AND ENDURANCE, RANGE OF MOTION AND FLEXIBILITY 8 [facility] PHYSICAL THERAPY EVALUATION 8 DoD THERAPEUTIC [...] MORE AREAS; HOT OR COLD PACKS 6 [facility] PHYSICAL THERAPY EVALUATION 6 DoD ANKLE CONTROL ORTHOSIS, STIRRUP STYLE, RIGID, INCLUDES ANY TYPE INTERFACE (E.G., PNEUMATIC, GEL), PREFABRICATED, [id number] 6 [facility] THERAPEUTIC PROCEDURE, 1 OR MORE AREAS, EACH 15 MINUTES; THERAPEUTIC EXERCISES TO DEVELOP STRENGTH AND ENDURANCE, RANGE OF MOTION AND FLEXIBILITY 5 DoD MANUAL THERAPY TECHNIQUES (EG, MOBILIZATION/ MANIPULATION, MANUAL LYMPHATIC DRAINAGE, MANUAL TRACTION), 1 OR MORE REGIONS, EACH 15 MINUTES 5 [facility] THERAPEUTIC PROCEDURE, 1 OR MORE AREAS, EACH 15 MINUTES; THERAPEUTIC EXERCISES TO DEVELOP STRENGTH AND ENDURANCE, RANGE OF MOTION AND FLEXIBILITY 5 [facility] CAST SUPPLIES, SHORT ARM SPLINT, ADULT (11 YEARS +), FIBERGLASS 5 [facility] CLOSED TREATMENT OF RADIAL HEAD OR NECK FRACTURE; WITHOUT MANIPULATION 5 [facility] SCREENING TEST OF VISUAL ACUITY, QUANTITATIVE, BILATERAL 5 [facility] CAST SUPPLIES, SHORT ARM CAST, ADULT (11 YEARS +), PLASTER 5 [facility] EDUCATIONAL SUPPLIES, SUCH BOOKS, TAPES, AND PAMPHLETS, FOR THE PATIENT'S EDUCATION AT COST TO PHYSICIAN OR OTHER QUALIFIED HEALTH LOCAL TELEPHONE OPERATOR 4 [facility] EDUCATIONAL SUPPLIES, SUCH BOOKS, TAPES, AND PAMPHLETS, FOR THE PATIENT'S EDUCATION AT COST TO PHYSICIAN OR OTHER QUALIFIED HEALTH LOCAL TELEPHONE OPERATOR 4 [facility] Physical Therapy Service Re-Evaluation Physical Therapy Service Re-Evaluation [id number] JODY ZAMORA [facility] Physical Therapy: ___ Se ion Segments, 15 Minutes Each Physical Therapy: ___ Session Segments, 15 Minutes Each [id number] DILEEP PHILLIPS [facility] Physical Therapy: ___ Se ion Segments, 15 Minutes Each Physical Therapy: ___ Session Segments, 15 Minutes Each [id number] CARLA HAIRSTON [facility] Physical Therapy: ___ Se ion Segments, 15 Minutes Each Physical Therapy: ___ Session Segments, 15 Minutes Each [id number] CARLA HAIRSTON [facility] Physical Therapy: ___ Se ion Segments, 15 Minutes Each Physical Therapy: ___ Session Segments, 15 Minutes Each [id number] DILEEP PHILLIPS [facility] Physical Therapy: ___ Se ion Segments, 15 Minutes Each Physical Therapy: ___ Session Segments, 15 Minutes Each [id number] JULIO GALLARDO [facility] Physical Therapy: ___ Se ion Segments, 15 Minutes Each Physical Therapy: ___ Session Segments, 15 Minutes Each [id number] DILEEP PHILLIPS [facility] Physical Therapy Service Evaluation Physical Therapy Service Evaluation [id number] JODY ZAMORA [facility] Physical Therapy: ___ Se ion Segments, 15 Minutes Each Physical Therapy: ___ Session Segments, 15 Minutes Each [id number] MIKE LARSON [facility] Modalities Cryotherapy Cold Packs Modalities Cryotherapy Cold Packs [id number] 6 [facility], [facility] Modalities Electrical Stimulation Unattended Modalities Electrical Stimulation Unattended [id number] [facility], [facility] Physical Therapy: ___ Se ion Segments, 15 Minutes Each Physical Therapy: ___ Session Segments, 15 Minutes Each [id number] 6 [facility], [facility] Physical Therapy: ___ Se ion Segments, 15 Minutes Each Physical Therapy: ___ Session Segments, 15 Minutes Each [id number] [facility], [facility] Modalities Cryotherapy Cold Packs Modalities Cryotherapy Cold Packs [id number] 6 SMEN, SABINE R with EStim to left ankle x 20 mins [facility] Modalities Electrical Stimulation Unattended Modalities Electrical Stimulation Unattended 13714 6 SMEN, SABINE R IES to left ankle x 20 mins [facility] Physical Therapy: ___ Se ion Segments, 15 Minutes Each Physical Therapy: ___ Session Segments, 15 Minutes Each [id number] 6 SMEN, SABINE R New Ther Ex instructed x 30 mins per new flowsheet by therapist [facility] Modalities Cryotherapy Cold Packs Modalities Cryotherapy Cold Packs [id number] 6 MIKE LARSON [facility] Modalities Electrical Stimulation Unattended Modalities Electrical Stimulation Unattended [id number] 6 MIKE LARSON [facility] Physical Therapy: ___ Se ion Segments, 15 Minutes Each Physical Therapy: ___ Session Segments, 15 Minutes Each 13511 6 MIKE LARSON [facility] Physical Therapy Service Re-Evaluation Physical Therapy Service Re-Evaluation [id number] [phone] MIKE LARSON [facility] Modalities Cryotherapy Cold Packs Modalities Cryotherapy Cold Packs [id number] 6 [facility] Modalities Electrical Stimulation Unattended Modalities Electrical Stimulation Unattended [id number] 6 [facility], [facility] Physical Therapy: ___ Se ion Segments, 15 Minutes Each Physical Therapy: ___ Session Segments, 15 Minutes Each [id number] [facility] DoD Physical Therapy: ___ Se ion Segments, 15 Minutes Each Physical Therapy: ___ Session Segments, 15 Minutes Each [id number] 6 [facility] DoD Modalities Electrical Stimulation Unattended Modalities Electrical Stimulation Unattended 73965 6 [facility] Modalities Cryotherapy Cold Packs Modalities Cryotherapy Cold Packs 68239 6 [facility] DoD Modalities Cryotherapy Cold Packs Modalities Cryotherapy Cold Packs [id number] 6 [facility], [facility] Modalities Electrical Stimulation Unattended Modalities Electrical Stimulation Unattended 91651 6 [facility] DoD Physical Therapy: ___ Se ion Segments, 15 Minutes Each Physical Therapy: ___ Session Segments, 15 Minutes Each [id number] 6 [facility] DoD Modalities Electrical Stimulation Unattended Modalities Electrical Stimulation Unattended 32368 6 [facility] DoD Modalities Cryotherapy Cold Packs Modalities Cryotherapy Cold Packs 47707 6 [facility], [facility] DoD Physical Therapy: ___ Se ion Segments, 15 Minutes Each Physical Therapy: ___ Session Segments, 15 Minutes Each 95746 6 [facility] DoD Physical Therapy Service Evaluation Physical Therapy Service Evaluation [id number] [phone] MIKE LARSON Ankle control orthosis, stirrup style, rigid, includes any type interface (e.g., pneumatic, gel), prefabricated, [id number] 6 SABINE SPEARS Left Air Cast DoD Social History Combined list of available smoking, tobacco, and other social history from Department of Defense and Veterans Affairs facilities. Social History Type Response Date Comment Sour e This section is an empty social history section. DoD
--- OUTSIDE RECORDS SUMMARY | 2024-11-14 10:14 | XMS_ITS | Encounter Summary ---
Author Organization [facility] Address [address] [place] [address]. [place], [place] [address] [place] [address] Care Team Providers Care Sales Administration Manager Name Role Phone Pb Su MD Primary Care Provider [phone] Encounter Details Date Type Department Care Team (Latest Contact Info) Description 04/07/2017 Abstract [facility] Medical Group Social History Tobacco [...] on filedocumented in this encounter Care Teams Sales Administration Manager Relationship Specialty Start Date End Date Pb Su MD [address] [place] [address] PCP - General 04/26/16 documented as of this encounter
--- OUTSIDE RECORDS SUMMARY | 2024-11-14 10:15 | XMS_ITS | Encounter Summary ---
Author Organization [facility] Address [address] [place] [address]. [place], [place] [address] [place] [address] Care Team Providers Care Aerotriangulation Specialist Name Role Phone Pb Su MD Primary Care Provider [phone] Pb Su MD Primary Care Provider [phone] Encounter Details Date Type Department Care Team (Latest Contact Info) Description 05/23/2015 Abstract [facility] Medical Group Aleshia Guaman MD [address] [place] [address] Social History Tobacco Use Types Packs/Day Years Used Date Smoking Tobacco: Never Assessed Sex and Gender Information Value Date Recorded Sex Assigned at Not on file Legal Sex Male 7:22 PM CDT Gender Identity Not on file Sexual Orientation Not on file documented as of this encounter Procedure Notes * Aleshia Guaman MD - 05/20/2015 10:58 AM CDT [place] [address] Patient: AVA CEDILLO [facility] Rec#: [id number] Birthdate: 1965 Admit/Svce Date: 05/19/2015 Disch Date: Attending Md: PB SU MD CHART DOCUMENT Spirometry: Based upon FEV1 to FVC ratio, there is no significant obstruction. Lung Volumes: Lung volumes are within normal limits. No restriction. Nonspecific reduction and residual volume. DLCO: Is normal. Electronically Signed By: ALESHIA GUAMAN M.D. 05/30/2015 04:00 P ALESHIA GUAMAN M.D. A #[id number] A/corine cc: PB SU M.D. documented in this encounter Plan of Treatment Not on file documented as of this encounter Visit Diagnoses Not on filedocumented in this encounter Care Teams Aerotriangulation Specialist Relationship Specialty Start Date End Date Pb Su MD [address] '[place] [address] PCP - General 04/26/16 Pb Su MD [address] [place] [address] PCP - General 05/19/15 04/25/16 documented as of this encounter
--- OUTSIDE RECORDS SUMMARY | 2024-11-14 10:15 | XMS_ITS | Encounter Summary ---
Author Organization [facility] Address [address] [place] [address]. [place], [place] [address] [place] [address] Care Team Providers Care Regional Agronomist Name Role Phone Pb Su MD Primary Care Provider [phone] Pb Su MD Primary Care Provider [phone] Encounter Details Date Type Department Care Team (Latest Contact Info) Description 06/27/2015 Abstract [facility] Medical Group Social History Tobacco [...] on filedocumented in this encounter Care Teams Regional Agronomist Relationship Specialty Start Date End Date Pb Su MD [address] [place] [address] PCP - General 04/26/16 Pb Su MD [address] [place] [address] PCP - General 05/19/15 04/25/16 documented as of this encounter
--- OUTSIDE RECORDS SUMMARY | 2024-11-14 10:15 | XMS_ITS | Encounter Summary ---
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 (Author) documented in this encounter Plan of Treatment Not on file documented as of this encounter Procedures Procedure Name Priority Date/Time Associated Diagnosis Comments TSH W/REFLEX Routine 04/26/2016 10:13 AM CDT TESTOSTERONE, FREE & TOTAL Routine 04/26/2016 10:13 AM CDT PROSTATE SPECIFIC ANTIGEN,TOTAL Routine 04/26/2016 10:13 AM CDT COMPREHENSIVE METABOLIC PANEL Routine 04/26/2016 10:13 AM CDT LIPID PANEL Routine 04/26/2016 10:13 AM CDT CBC, AUTO, NO DIFF Routine 04/26/2016 10 :13 AM CDT VITAMIN D, 25 OH Routine 04/26/2016 10:1 3 AM CDT documented in this encounter Results * (ABNORMAL) CBC, AUTO, NO DIFF (04/26/2016 10:13 AM CDT) WBC 4.2(L) 4.8 - 10.8 X10'3/uL [facility] CONVERSION RBC 4.97 4.70 - 6.10 X10'6/uL [facility] CONVERSION HGB 14.7 14.0 - 18.0 g/dL [facility] CON[facility] HCT 41.6(L) 43.0 - 54.0 % [facility] CONVERSION MCV 83.7 80.0 - 94.0 fL [facility] TO [facility] CONVERSION MCH 29.6 27.0 - 31.0 pg [facility] TO [facility] CONVERSION MCHC 35.3 32.0 - 36.0 g/dL [facility] CONVERSION RDW 12.2 11.5 - 14.5 % [facility] TO [facility] CONVERSION PLT 276 130 - 400 X10'3/uL [facility] CONVERSION GLUCOSE 11.3 9.3 - 12.2 fL [facility] CONVERSION 04/26/2016 10:1 3 AM CDT 04/26/2016 10:13 AM CDT Narrative [facility] TO [facility] CONVERSION - 04/26/2016 2:23 PM CDT Result Communication: Call patient with results Pb Su MD LABORATORY Final Resul t Performing Organization Address City/[facility] Co de Phone Number [facility] TO [facility] CONVERSION * PROSTATE SPECIFIC ANTIGEN,TOTAL (04/26/2016 10:13 AM CDT) [facility] PSA 1.22 <4.0 ng/mL [facility] CONVERSION Comment: Result Comment: TEST WAS PERFORMED USING THE YADI METHOD. ??PSA VALUES OBTAINED WITH OTHER ASSAY METHODS OR KITS CANNOT BE USED INTERCHANGEABLY WITH RESULTS OBTAINED BY THE YAID METHOD. 04/26/2016 10:1 3 AM CDT 04/26/2016 10:13 AM CDT Narrative [facility] TO [facility] CONVERSION - 04/26/2016 3:22 PM CDT Result Communication: Call patient with results Pb Su MD LABORATORY Final Resul t [facility] CONVERSION * TESTOSTERONE, FREE & TOTAL (04/26/2016 10:13 AM CDT) Pathologist [facility] TESTOSTERONE TOTAL 442 [facility] TO EPIC CONVERSION Comment: Result Comment: Reference range: 250 to 1100 Unit: ng/dL For more information on this test, go to http://education.Navendis/faq/ TotalTestosteroneLCMSMS Test Performed by [facility], [address] [place] [address] Haresh Duffy M.D., Ph.D., Director of Laboratories , CLIA [id number] TESTOSTERONE FREE 64.5 ME [facility] TO EPIC CONVERSION Comment: Result Comment: Reference range: 35.0 to 155.0 Unit: pg/mL Test Performed by [facility], [address] [place], [place] Haresh Duffy M.D., Ph.D., Director of Laboratories , CLIA [id number] 04/26/2016 10:1 3 AM CDT 04/26/2016 10:13 AM CDT Narrative [facility] TO [facility] CONVERSION - 05/01/2016 6:21 PM CDT Result Communication: No patient communication needed at this time Pb Su MD LABORATORY Final Resul t [facility] TO [facility] CONVERSION * VITAMIN D, 25 OH (04/26/2016 10:13 AM CDT) Pathologist [facility] VITAMIN D 25 HYDROXY S/P/B 36 30 - 100 NG/ML [facility] TO [facility] CONVERSION Comment: Result Comment: ?? SUPPLEMENTING WITH VITAMIN D2 MAY RESULT IN FALSELY LOW RESULTS, CLINICAL CORRELATION NEEDED. ? INTERPRETATION ? DEFICIENT ??<20 ?INSUFFICIENT 20-30 ?SUFFICIENT 30-100 POTENTIAL INTOXICATION ??>100 ? TESTING PERFORMED AT [place] [id number] 04/26/2016 10:1 3 AM CDT 04/26/2016 10:13 AM CDT Narrative [facility] TO EP[facility] CONVERSION - 04/29/2016 8:45 PM CDT Result Communication: No patient communication needed at this time us Pb Su MD LABORATORY Final Resul t [facility] TO [facility] CONVERSION * COMPREHENSIVE METABOLIC PANEL (04/26/2016 10:13 AM CDT) SODIUM S/P/B 139 136 - 145 mmol/L [facility] TO [facility] CONVERSION POTASSIUM S/P/B 4.3 3.5 - 5.1 mmol/L [facility] TO [facility] CONVERSION CHLORIDE S/P/B 102 98 - 107 mmol/L [facility] TO [facility] CONVERSION CO2 25 22 - 29 mmol/L [facility] TO [facility] CONVERSION ANION GAP 16 8 - 20 [facility] T O EPIC CONVERSION BUN 14 8 - 23 mg/dL [facility] TO [facility] CONVERSION CREATININE S/P/B 1.06 0.70 - 1.20 mg/dL [facility] TO [facility] CONVERSION GFR ESTIMATE >60 >60 mL/min/1 .73m'2 [facility] TO [facility] CONVERSION EGFR AFR. AMER. >60 NOTE: eGFR is not calculated for patients <18 years of age. This is an estimated GFR (CKD EPI) and should not be used for calculating drug doses. >60 mL/min/1 .73m'2 [facility] TO [facility]IC CONVERSION GLUCOSE 91 70 - 99 mg/dL [facility] CONVERSION CALCIUM S/P/B 9.5 8.6 - 10.2 mg/dL [facility] CONVERSION BILIRUBIN TOTAL S/P/B 0.6 0.2 - 1.2 mg/dL [facility] CONVERSION AST 27 0 - 40 IU/L [facility] CONVERSION ALT 22 0 - 41 IU/L [facility] TO [facility] CONVERSION ALKALINE PHOSPHATASE S/P/B 67 40 - 129 IU/L [facility] TO [facility] CONVERSION TOTAL PROTEIN S/P/B 6.9 6.4 - 8.3 g/dL [facility] TO [facility] CONVERSION ALBUMIN S/P/B 4.5 3.5 - 5.2 g/dL [facility] TO [facility]IC CONVERSION GLOBULIN 2.4 2.3 - 3.6 g/dL [facility] TO [facility] CONVERSION A/G RATIO 1.9 1.0 - 2.0 [facility] TO [facility] CONVERSION 04/26/2016 10:1 3 AM CDT 04/26/2016 10:13 AM CDT Narrative [facility] TO [facility] CONVERSION - 04/26/2016 3:10 PM CDT Result Communication: Call patient with results Pb Su MD LABORATORY Final Resul t [facility] TO [facility] CONVERSION * (ABNORMAL) LIPID PANEL (04/26/2016 10:13 AM CDT) CHOLESTEROL 223(H) <200 mg/dL [facility] TO [facility] CONVERSION Comment: Result Comment: NOTE: Acetaminophen, N Acetyl p benzoquinone imine (NAPQI), N acetylcysteine (NAC), Metamizole, 4 Aminoantipyrine (4 AAP) and 4 Methylamino antipyrine (4 MAP) at high concentrations can cause falsely low results on Lactate, Uric Acid, Cholesterol, Triglyceride, HDL, and Direct LDL. TRIGLYCERIDES 167(H) <150 mg/dL [facility] TO EPIC CONVERSION HDL 39(L) >59 mg/dL [facility] TO EP[facility] CONVERSION LDL (CALCULATED) 151(H) <100 mg/dL [facility] TO EPIC CONVERSION NON HDL CHOLESTEROL 184(H) <130 mg/dL [facility] TO [facility] CONVERSION Comment: Result Comment: NOTE: WHEN THE TRIGLYCERIDES ARE >200 mg/dL, NON HDL C IS A SECONDARY TARGET OF THERAPY, WITH A GOAL 30 mg/dL HIGHER THAN THE IDENTIFIED LDL C GOAL. CHOL/HDL RATIO 5.7(H) 0.0 - 4.5 [facility] TO [facility]IC CONVERSION VLDL CHOLESTEROL (LMP) 33 5 - 55 mg/dL [facility] TO [facility] CONVERSION LIPID INTERPRETATION NIH CONCENSUS REPORT RECOMMENDATI ONS: ?ADULT ?CHILD ??LOW RISK: ?CHOLESTERO L ? <200 ? <170 ?TRIGLYCERI DE ?<150 ?--- ?HDL ? >=60 ?--- ?LDL ? <100 ? <110 ?BORDERLINE : ?CHOLESTERO L ? 200-239 ?? 170-199 ?TRIGLYCERI DE ?150-199 ? --- ?HDL ?40-59 ?--- ?LDL ? 100-159 ?? 110-129 ?HIGH RISK: ?CHOLESTERO L ? >=240 ?>=200 ?TRIGLYCERI DE ?>=200 ? --- ?HDL ?<40 ?--- ?LDL ? >=160 ?>=130 [facility] TO EPIC CONVERSION 04/26/2016 10:1 3 AM CDT 04/26/2016 10:13 AM CDT Narrative [facility] TO EP[facility] CONVERSION - 04/26/2016 3:10 PM CDT Result Communication: Call patient with results us Pb Su MD LABORATORY Final Resul t [facility] TO EPIC CONVERSION * TSH W/REFLEX (SNS) (04/26/2016 10:13 AM CDT) TSH 1.72 0.27 - 4.20 mIU/mL [facility] TO EPIC CONVERSION Comment:Result Comment: FREE T4 NOT INDICATED 04/26/2016 10:1 3 AM CDT 04/26/2016 10:13 AM CDT Narrative [facility] TO EP[facility] CONVERSION - 04/26/2016 3:22 PM CDT Result Communication: Call patient with results us Pb Su MD LABORATORY Final Resul t [facility] CONVERSION documented in this encounter Visit Diagnoses Not on filedocumented in this encounter Care Teams Associate Store Leader Relationship Specialty Start Date End Date Pb Su MD [address] [place] [address] PCP - General 04/26/16 Pb Su MD [address] [place] [address] PCP - General 05/19/15 04/25/16 documented as of this encounter
--- OUTSIDE RECORDS SUMMARY | 2024-11-14 10:15 | XMS_ITS | Encounter Summary ---
Author Organization [facility] Address [address] [place] [address]. [place] [address] [place] [address] Care Team Providers Care Card Writer Hand Name Role Phone Pb Su MD Primary Care Provider [phone] Pb Su MD Primary Care Provider [phone] Encounter Details Date Type Department Care Team (Latest Contact Info) Description 12/15/2015 Abstract [facility] Medical Group Social History Tobacco Use Types Packs/Day Years Used Date Smoking Tobacco: Never Assessed Sex and Gender Information Value Date Recorded Sex Assigned at Not on file Legal Sex Male 7:22 PM CDT Gender Identity Not on file Sexual Orientation Not on file documented as of this encounter Miscellaneous Notes * Letter - Vahe Whitehead Md, MD - 12/15/2015 9:48 AM CST Dear Mr. Barker , Our records indicate that you are past due for your lab work ordered by your healthcare provider. You are also due for an appointment with your doctor. Please schedule this at your convenience. Feel free to contact us if we can be of assistance. Thank you. Electronically signed by:Albert Ortega MA Dec 15 2015 9:49AM INVESTMENT BANKER documented in this encounter Plan of Treatment Not on file documented as of this encounter Visit Diagnoses Not on filedocumented in this encounter Care Teams Card Writer Hand Relationship Specialty Start Date End Date Pb Su MD [address] [place] [address] PCP - General 04/26/16 Pb Su MD [address] [place] [address] PCP - General 05/19/15 04/25/16 documented as of this encounter
--- OUTSIDE RECORDS SUMMARY | 2024-11-14 10:15 | XMS_ITS | Encounter Summary ---
Author Organization [facility] Address [address] [place] [address]. [place] [address] [place] [address] Care Team Providers Care Quarrying Manager Name Role Phone Pb Su MD Primary Care Provider [phone] Encounter Details Date Type Department Care Team (Late st Contact Info) Description 04/26/2016 Abstract [facility] [address] [place], [place] [id number] Pb Su MD [address] [place], [place] [id number] Social History Tobacco Use Types Packs/Day Years [...] Routine 04/26/2016 10:13 AM CDT PROSTATE SPECIFIC ANTIGEN,SCREENING Routine 04/26/2016 10:13 AM CDT COMPREHENSIVE METABOLIC PANEL Routine 04/26/2016 10:13 AM CDT LIPID PANEL Routine 04/26/2016 10:13 AM CDT CBC, AUTO, NO DIFF Routine 04/26/2016 10 :13 AM CDT VITAMIN D, 25 OH Routine 04/26/2016 10:1 3 AM CDT documented in this encounter Results * VITAMIN D, 25 OH (04/26/2016 10:13 AM CDT) VITAMIN D 25 HYDROXY S/P/B 36 30 - 100 NG/ML 04/29/2016 8:45 PM CDT [facility] Comment: SUPPLEMENTING WITH VITAMIN D2 MAY RESULT IN FALSELY LOW RESULTS, CLINICAL CORRELATION NEEDED. ? INTERPRETATION ? DEFICIENT ??<20 ?INSUFFICIENT 20-30 ?SUFFICIENT 30-100 POTENTIAL INTOXICATION ??>100 TEST[place] [address] 04/26/2016 10:1 3 AM CDT 04/26/2016 11:40 AM CDT us Generic Conversion Md [facility] Performing Organization Address [facility] de Phone Number [facility] [address] [place] [address], [place] [phone] * TSH W/REFLEX (SNS) (04/26/2016 10:13 AM CDT) TSH 1.72 0.27 - 4.20 mIU/mL 04/26/2016 3:22 PM CDT [facility] Comment:FREE T4 NOT INDICATE D SERUM OR PLASMA SPECIMEN / Unknown 04/26/2016 10:13 AM CDT 04/26/2016 11:40 AM CDT us Generic Conversion Md [facility] Final R esult Performing Organization Address City/[facility]/ZIP Co de Phone Number [facility] [address] [place] [address], [place] [phone] * TESTOSTERONE, FREE & TOTAL (04/26/2016 10:13 AM CDT) TESTOSTERONE TOTAL 442 250 - 1,100 ng/dL 05/01/2016 10:32 AM CDT [facility] Comment: For more information on this test, go to http://education.Integrated International [employer]roll/faq/ TotalTestosteroneLCMSMS Test Performed by [facility] [address], [address] [place] [address] Haresh Duffy M.D., Ph.D., Director of Laboratories , CLIA [id number] TESTOSTERONE FREE 64.5 35.0 - 155.0 pg/mL 05/01/2016 6:21 PM CDT [facility] Comment: Test Performed by [employer] [address], [address] [place] [address] Haresh Duffy M.D., Ph.D., Director of Laboratories , CLIA [id number] SERUM SPECIMEN / Unknown 04/26/2016 10:13 AM CDT 04/26/2016 11:40 AM CDT us Generic Conversion Md [facility] Final [facility] [place] [address], * PROSTATE SPECIFIC ANTIGEN,SCREENING (04/26/2016 10:13 AM CDT) PSA 1.22 <4.0 ng/mL 04/26/2016 3:22 PM CDT [facility] Comment: TEST WAS PERFORMED USING THE YADI METHOD. ??PSA VALUES OBTAINED WITH OTHER ASSAY METHODS OR KITS CANNOT BE USED INTERCHANGEABLY WITH RESULTS OBTAINED BY THE YADI METHOD. SERUM SPECIMEN / Unknown 04/26/2016 10:13 AM CDT 04/26/2016 11:40 AM CDT us Generic Conversion Md [facility] Final R esult [facility] [address] [place] [address], * (ABNORMAL) LIPID PANEL (04/26/2016 10:13 AM CDT) LIPID INTERPRETATION 04/26/2016 3:10 PM CDT [facility] Comment: NIH CONCENSUS REPORT RECOMMENDATIONS: ?ADULT ?CHILD ??LOW RISK: ?CHOLESTEROL ? <200 ? <170 ?TRIGLYCERIDE ?<150 ?--- ?HDL ? >=60 ?--- ?LDL ? <100 ? <110 ??BORDERLINE: ?CHOLESTEROL ? 200-239 ?? 170-199 ?TRIGLYCERIDE ?150-199 ? --- ?HDL ?40-59 ?--- ?LDL ? 100-159 ?? 110-129 ??HIGH RISK: ?CHOLESTEROL ? >=240 ?>=200 ?TRIGLYCERIDE ?>=200 ? --- ?HDL ?<40 ?--- ?LDL ? >=160 ?>=130 CHOL/HDL RATIO 5.7(H) 0.0 - 4.5 04/26/2016 3:10 PM CDT [facility] CHOLESTEROL 223(H) <200 mg/dL 04/26/2016 3:10 PM CDT [facility] Comment: NOTE: Acetaminophen, N Acetyl p benzoquinone imine (NAPQI), N acetylcysteine (NAC), Metamizole, 4 Aminoantipyrine (4 AAP) and 4 Methylamino antipyrine (4 MAP) at high concentrations can cause falsely low results on Lactate, Uric Acid, Cholesterol, Triglyceride, HDL, and Direct LDL. HDL 39(L) >59 mg/dL 04/26/2016 3:10 PM CDT [facility] DIRECT LDL 151(H) <100 mg/dL 04/26/2016 3:10 PM T [facility] NON HDL CHOLESTEROL 184(H) <130 mg/dL 04/26/2016 3:10 PM T [facility] Comment: NOTE: WHEN THE TRIGLYCERIDES ARE >200 mg/dL, NON HDL C IS A SECONDARY TARGET OF THERAPY, WITH A GOAL 30 mg/dL HIGHER THAN THE IDENTIFIED LDL C GOAL. TRIGLYCERIDES 167(H) <150 mg/dL 04/26/2016 3:10 PM CDT [facility] VLDL CALCULATION 33 5 - 55 mg/dL 04/26/2016 3:10 PM T [facility] 04/26/2016 10:1 3 AM CDT 04/26/2016 11:40 AM CDT us Generic Conversion Md [facility] Final R esult [facility] [address] [place] [address], [place] [phone] * (ABNORMAL) CBC, AUTO, NO DIFF (04/26/2016 10:13 AM CDT) WBC 4.2(L) 4.8 - 10.8 X10'3/uL 04/26/2016 2:23 PM CDT [facility] RBC 4.97 4.70 - 6.10 X10'6/uL 04/26/2016 2:23 PM CDT [facility] HGB 14.7 14.0 - 18.0 g/dL 04/26/2016 2:23 PM CDT [facility] HCT 41.6(L) 43.0 - 54.0 % 04/26/2016 2:23 PM CDT [facility] MCV 83.7 80.0 - 94.0 fL 04/26/2016 2:23 PM CDT [facility] MCH 29.6 27.0 - 31.0 pg 04/26/2016 2:23 PM CDT [facility] MCHC 35.3 32.0 - 36.0 g/dL 04/26/2016 2:23 PM CDT [facility] RDW 12.2 11.5 - 14.5 % 04/26/2016 2:23 PM CDT [facility] PLT 276 130 - 400 X10'3/uL 04/26/2016 2:23 PM CDT [facility] MPV 11.3 9.3 - 12.2 fL 04/26/2016 2:23 PM CDT [facility] 04/26/2016 10:1 3 AM CDT 04/26/2016 11:40 AM CDT us Generic Conversion Md [facility] Final R esult [facility] [address] [place] [address], * COMPREHENSIVE METABOLIC PANEL (04/26/2016 10:13 AM CDT) [facility] Signature GLUCOSE 91 70 - 99 mg/dL 04/26/2016 3:10 PM CDT [facility] BUN 14 8 - 23 mg/dL 04/26/2016 3:10 PM CDT [facility] CREATININE S/P/B 1.06 0.70 - 1.20 mg/dL 04/26/2016 3:10 PM CDT [facility] SODIUM S/P/B 139 136 - 145 mmol/L 04/26/2016 3:10 PM CDT [facility] POTASSIUM S/P/B 4.3 3.5 - 5.1 mmol/L 04/26/2016 3:10 PM CDT [facility] CHLORIDE S/P/B 102 98 - 107 mmol/L 04/26/2016 3:10 PM CDT [facility] CO2 25 22 - 29 mmol/L 04/26/2016 3:10 PM CDT [facility] BILIRUBIN TOTAL S/P/B 0.6 0.2 - 1.2 mg/dL 04/26/2016 3:10 PM CDT [facility] CALCIUM S/P/B 9.5 8.6 - 10.2 mg/dL 04/26/2016 3:10 PM CDT [facility] ALKALINE PHOSPHATASE S/P/B 67 40 - 129 IU/L 04/26/2016 3:10 PM CDT [facility] AST 27 0 - 40 IU/L 04/26/2016 3:10 PM CDT [facility] TOTAL PROTEIN S/P/B 6.9 6.4 - 8.3 g/dL 04/26/2016 3:10 PM CDT [facility] ALBUMIN S/P/B 4.5 3.5 - 5.2 g/dL 04/26/2016 3:10 PM CDT [facility] ALT 22 0 - 41 IU/L 04/26/2016 3:10 PM CDT [facility] GLOBULIN 2.4 2.3 - 3.6 g/dL 04/26/2016 3:10 PM CDT [facility] A/G RATIO 1.9 1.0 - 2.0 04/26/2016 3:10 PM CDT [facility] ANION GAP 16 8 - 20 04/26/2016 3:10 PM CDT [facility] EGFR NON-AFR. AMER. >60 >60 mL/min/[facility] 04/26/2016 3:10 PM CDT [facility] EGFR AFR. AMER. >60 >60 mL/min/1.7 [facility] 04/26/2016 3:10 PM CDT [facility] Comment: NOTE: eGFR is not calculated for patients <18 years of age. This is an estimated GFR (CKD EPI) and should not be used for calculating drug doses. 04/26/2016 10:1 3 AM CDT 04/26/2016 11:40 AM CDT us Generic Conversion Md [facility] Final R esult [facility] [address] [place] [address], documented in this encounter Visit Diagnoses Diagnosis Atrial fibrillation (CMS/HCC HHS/HCC) Atrial fibrillation documented in this encounter Care Teams Quarrying Manager Relationship Specialty Start Date End Date Pb Su MD [address] [place] [phone] (Work) PCP - General 04/26/16 documented as of this encounter
--- OUTSIDE RECORDS SUMMARY | 2024-11-14 10:15 | XMS_ITS | Encounter Summary ---
Author Organization [facility] Address [address] [place] [address]. [place], [place] [address] [place] [address] Care Team Providers Care Brakeshoe Repairer Name Role Phone Pb Su MD Primary Care Provider [phone] Encounter Details Date Type Department Care Team (Latest Contact Info) Description 04/28/2016 Abstract [facility] Social History Tobacco Use Types Packs/Day Years Used Date Smoking Tobacco: Never Assessed Sex and Gender Information Value Date Recorded Sex Assigned at Not on file Legal Sex Male 7:22 PM CDT Gender Identity Not on file Sexual Orientation Not on file documented as of this encounter Progress Notes * Pb Su MD - 04/28/2016 8:33 PM CDT Verified Results CBC WO Diff ( Hemogram ) 26Apr2016 10:13AM Pb Su Test Name Result Flag Reference WBC 4.2 X10'3/uL L 4.8-10.8 Red Blood Cell Count (RBC) 4.97 X10'6/uL 4.70-6.10 Hemoglobin (HGB) 14.7 g/dL 14.0-18.0 Hematocrit (HCT) 41.6 % L 43.0-54.0 Mean Corpuscular Volume (MCV) 83.7 fL 80.0-94.0 Mean Corpuscular Hgb (MCH) 29.6 pg 27.0-31.0 Mean Corpuscular Hgb Conc (MCH 35.3 g/dL 32.0-36.0 Red Cell Distrib Width (RDW) 12.2 % 11.5-14.5 Platelet Count (PLT) 276 X10'3/uL 130-400 Mean Platelet Volume (MPV) 11.3 fL 9.3-12.2 Compr Metabolic Prof ( CMP ) 26Apr2016 10:13AM Pb Su Test Name Result Flag Reference Glucose 91 mg/dL 70-99 Blood Urea Nitrogen (BUN) 14 mg/dL 8-23 Creatinine 1.06 mg/dL 0.70-1.20 Sodium (Na) 139 mmol/L 136-145 Potassium (K) 4.3 mmol/L 3.5-5.1 Chloride (Cl) 102 mmol/L 98-107 Carbon Dioxide (CO2) 25 mmol/L 22-29 Total Bilirubin 0.6 mg/dL 0.2-1.2 Calcium 9.5 mg/dL 8.6-10.2 Alkaline Phosphatase (ALKP) 67 IU/L 40-129 AST/GOT 27 IU/L 0-40 Total Protein 6.9 g/dL 6.4-8.3 Albumin 4.5 g/dL 3.5-5.2 ALT/GPT 22 IU/L 0-41 Globulin, Calc 2.4 g/dL 2.3-3.6 A:G Ratio 1.9 1.0-2.0 Anion Gap 16 8-20 Glomerular Filt Rate Calc >60 mL/min/1.73m'2 >60 Glomerular Filt Rate (AA) Calc >60 >60 NOTE: eGFR is not calculated for patients <18 years of age. This is an estimated GFR (CKD EPI) and should not be used for calculating drug doses. mL/min/1.73m'2 Lipid Profile 26Apr2016 10:13AM Pb Su Test Name Result Flag Reference CHOLESTEROL 223 mg/dL H <200 NOTE: Acetaminophen, N Acetyl p benzoquinone imine (NAPQI), N acetylcysteine (NAC), Metamizole, 4 Aminoantipyrine (4 AAP) and 4 Methylamino antipyrine (4 MAP) at high concentrations can cause falsely low results on Lactate, Uric Acid, Cholesterol, Triglyceride, HDL, and Direct LDL. TRIGLYCERIDE 167 mg/dL H <150 HDL CHOLESTEROL 39 mg/dL L >59 LDL CALCULATED 151 mg/dL H <100 Non HDL, Calc 184 mg/dL H <130 NOTE: WHEN THE TRIGLYCERIDES ARE >200 mg/dL, NON HDL C IS A SECONDARY TARGET OF THERAPY, WITH A GOAL 30 mg/dL HIGHER THAN THE IDENTIFIED LDL C GOAL. CHOL/HDL RATIO 5.7 H 0.0-4.5 VLDL Cholesterol 33 mg/dL 5-55 Lipid Profile Comment 1 (Report) NIH CONCENSUS REPORT RECOMMENDATIONS: ADULT CHILD LOW RISK: CHOLESTEROL <200 <170 TRIGLYCERIDE <150 --- HDL >=60 --- LDL <100 <110 BORDERLINE: CHOLESTEROL 200-239 170-199 TRIGLYCERIDE 150-199 --- HDL 40-59 --- LDL 100-159 110-129 HIGH RISK: CHOLESTEROL >=240 >=200 TRIGLYCERIDE >=200 --- HDL <40 --- LDL >=160 >=130 Prostate Specif Ag ( PSA ) Scrn 26Apr2016 10:13AM Pb Su Test Name Result Flag Reference Prostate Specific Antigen 1.22 ng/mL <4.0 TEST WAS PERFORMED USING THE YADI METHOD. PSA VALUES OBTAINED WITH OTHER ASSAY METHODS OR KITS CANNOT BE USED INTERCHANGEABLY WITH RESULTS OBTAINED BY THE YADI METHOD. TSH W Reflex Free T4 26Apr2016 10:13AM Pb Su Test Name Result Flag Reference TSH w Reflex Free T4 1.72 mIU/mL 0.27-4.20 FREE T4 NOT INDICATED documented in this encounter Plan of Treatment Not on file documented as of this encounter Visit Diagnoses Not on filedocumented in this encounter Care Teams Brakeshoe Repairer Relationship Specialty Start Date End Date Pb Su MD [address] [place] [address] PCP - General 04/26/16 documented as of this encounter
--- OUTSIDE RECORDS SUMMARY | 2024-11-14 10:15 | XMS_ITS | Encounter Summary ---
Author Organization [facility] Address [address] [place] [address]. [place], [place] [id number] [place] [id number] Care Team Providers Care Tanker Service Attendant Name Role Phone Pb Su MD Primary Care Provider [phone] Encounter Details Date Type Department Care Team (Late st Contact Info) Description 04/26/2016 Abstract [facility] Family Medicine - [place] [address], [address] [place] [id number] Pb Su MD [address] [place] [address] Social History Tobacco Use Types Packs/Day Years Used Date Smoking Tobacco: Never Assessed Sex and Gender Information Value Date Recorded Sex Assigned at Not on file Legal Sex Male 7:22 PM CDT Gender Identity Not on file Sexual Orientation Not on file documented as of this encounter Last Filed Vital Signs Vital Sign Reading Time Taken Comments Blood Pressure 118/72 04/26/2016 8:24 AM CDT Pulse 68 04/26/2016 8:24 AM CDT Temperature - - Respiratory Rate - - Oxygen Saturation - - Inhaled Oxygen Concentration - - Weight 102.5 kg (226 lb) 04/26/2016 8:24 AM CDT Height - - Body Mass Index 30.65 03/20/2015 6:53 AM CDT documented in this encounter Progress Notes * Pb Su MD - 04/26/2016 8:30 AM CDT Reason For Visit Annual physical 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 History of Present Illness HPI: 48 yo male for health maintenance visit: as customary we reviewed medicatins, chief complaint,performed detailed hx and exam! HPI: 48 y male presents for health maintenance schedule/preventive services review; detailed history/exam/ counseling services and exploration of multiple somatic concerns and lab studies! HM, Adult Male: The patient is being seen for a health maintenance and 04/26/16 evaluation. The last health maintenance visit was > 12 months ago year(s) ago. Social History: Household members include spouse. He is . 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 The patient has never smoked cigarettes and has never used smokeless tobacco. He reports rare alcohol use. The patient has no concerns about alcohol abuse. He has never used illicit drugs. General Health: The patient's health since the last visit is described as good. He has regular dental visits. He denies vision problems. He denies hearing loss. Lifestyle:. He consumes a diverse and healthy diet. He has weight concerns. He exercises regularly.He does not use tobacco. He denies alcohol use. Reproductive health:. the patient is sexually active. Screening: cancer screening reviewed and updated. metabolic screening reviewed and updated. risk screening reviewed and updated. Back Pain Lumbar, Chronic (Brief): The patient is being seen for a routine clinic follow-up of and chronic RTC 04/26/16 chronic low back pain. The last clinic visit was 6 months month(s) ago. No changes in management were made at the last visit. Symptoms: back pain, back stiffness and decreased range of motion of the back, but no leg pain, no leg numbness, no foot numbness and no foot weakness. Symptoms are located in the mid back bilaterally. There is no radiation. Onset was sudden. The symptoms occur intermittently. The episodes occur monthly. The patient describes symptoms as moderate in severity and unchanged. Exacerbating factors: weight bearing, back motion, lifting and straining. Relieving factors: rest, heat and physical therapy. No associated symptoms are reported. Current treatment includes activity modification, heat and declined physical therapy. By report, there is fair compliance with treatment. Initial diagnosis of chronic low back pain was 1 year(s) ago. Since diagnosis the disease has been unchanged. Recently, the disease has been unchanged. He was previously evaluated in this clinic. Past evaluation has included lumbar spine x-ray. Past treatment has included activity modification, heat and physical therapy. Hyperlipidemia (Follow-Up): The patient states his hyperlipidemia has been poorly controlled since the last visit. He has no comorbid illnesses. Interval Events: worsening fatigue suspected secondary to DEBBIE. He has no significant interval events. Symptoms: The patient is currently asymptomatic. denies chest pain, denies intermittent leg claudication, denies muscle pain, denies muscle weakness and denies . Associated symptoms include no focal neurologic deficits [...] panel, liver function tests and 6 weeks. Additional History: Labs: Chol 274mg/dl TGL 214mg/dl HDL 43mg/dl LDL 188mg/dl. Premature Ventricular Complexes (Brief): The patient is being seen for a routine clinic follow-up of and Clinical re-evaluation: deneis recent episodes premature ventricular complexes. The last clinic visit was 3 month(s) ago. No changes in management were made at the last visit. Symptoms: no palpitations, no skipped beats, no pauses in heartbeat and no lightheadedness. The patient is currently asymptomatic. Onset was sudden Initial episode some 4-5 years ago. There is no known event that preceded symptom onset. The symptoms occur rarely. He describes this as mild and resolved. No exacerbating factors are noted. No relieving factors are noted. Associated symptoms: no fatigue, no syncope, nodyspnea, no neck discomfort and no chest pain. The patient is not currently being treated for this problem. By report, there is good compliance with treatment and good symptom control. Pertinent medical history: no coronary artery disease, no cardiomyopathy, no myocarditis, no valvular heart disease, no congestive heart failure, no syncope, no ventricular tachycardia, no ventricular fibrillation,no long Q-T syndrome, no bradycardia, no hyperkalemia, no hypokalemia, no hypercalcemia, no hypomagnesemia and no hyperthyroidism. Risk factors: no decongestant use, no antidepressants, no theophylline treatment, no digoxin treatment, no amphetamine use, no cocaine use, no recent electrolyte imbalance, no surgery, no recent infection, no recent cardiac contusion and no recent emotional stress. Pertinent social history: no alcohol abuse, no tobacco abuse, no caffeine abuse, no illicit amphetamine use and no cocaine abuse. Obstructive Sleep Apnea (Brief): The patient is being seen for a routine clinic follow-up of and 04/26/16 obstructive sleep apnea. Symptoms: excessive daytime sleepiness, [...] a routine clinic follow- up of and 04/26/16 asleep disorder. The patient has obstructive sleep [...] for a routine clinic follow-up of and 04/26/16 a general ill feeling. Symptoms: malaise, fatigue, [...] x-ray. Past treatment has included vitamin supplements. Atrial Fibrillation (Follow-Up): The patient presents with [...] for an initial evaluation of erectile disorder 04/26/16. Symptoms: erectile dysfunction, inability to initiate erection, [...] use of cimetidine. Review of Systems Constitutional: fatigue. Head and Face: negative. Eyes: negative. ENT: negative. Cardiovascular: palpitations. Respiratory: negative. Gastrointestinal: negative. Genitourinary: negative. Musculoskeletal: back pain and joint stiffness. Integumentary and Breasts: negative. Neurological: negative. Psychiatric: negative. Endocrine: negative. Hematologic and Lymphatic: negative. Active Problems 1. Arm numbness left (782.0) [...] (Z12.5) 22. Vitamin d deficiency (268.9) (E55.9) Joint Pain, Localized In The Knee 719.46 Past Medical History ?? History of Arthritis (V13.4) ?? History Of Hypercholesterolemia (V12.29) (Z86.39) ?? History of hyperlipidemia (V12.29) (Z86.39) ?? History of Primary snoring (786.09) (R06.83) ?? History of Weakness of limb (729.89) (M62.81) ?? History of Wears glasses (V49.89) (Z97.3) Surgical History ?? Denied: History of Surgery Family History Mother ?? No pertinent family history Father ?? Family history of Social History ?? Alcohol Use (History) ?? Five children ?? Former smoker (V15.82) (Z87.891) ? Occupation Current Meds 1. Claritin 10 MG Oral Tablet; Therapy: (Recorded:[id number]) to Recorded Dispense: 0 Days ; #: Sufficient TABS; Refill: 0; GAYLE = N; Record; Last Updated By: Denisse Ceja; 06/29/2013 7:41:31 AM Allergies 1. Acetaminophen-Codeine #3 TABS Recorded By: Charu Snowden; 07/31/2012 8:27:16 AM Vitals Recorded: 26Apr2016 08:24AM Temperature 98.5 F Heart Rate 68 Systolic 118 Diastolic 72 O2 Saturation 97 Weight 226 lb BMI Calculated 30.65 BSA Calculated 2.24 Physical Exam Constitutional General appearance: Abnormal. uncomfortable and appears tired, but well developed and well nourished. Head and Face Head and face: Normal. Palpation of the face and sinuses: No sinus tenderness. Eyes Conjunctiva and lids: No erythema, swelling or discharge. Pupils and irises: Equal, round, reactive to light. Ophthalmoscopic examination: Normal fundi and optic discs. Ears, Nose, Mouth, and Throat External inspection of ears and nose: Normal. Otoscopic examination: Tympanic membranes translucent with normal light reflex. Canals patent without erythema. Nasal mucosa, septum, and turbinates: Normal without edema or erythema. Lips, teeth, and gums: Normal, good dentition. Oropharynx: Normal with no erythema, edema, exudate or lesions. Neck Neck: Supple, symmetric, trachea midline, no masses. Thyroid: Normal, no thyromegaly. Pulmonary Respiratory effort: No increased work of breathing or signs of respiratory distress. Percussion of chest: Normal. Palpation of chest: Normal. Auscultation of lungs: Clear to auscultation. Cardiovascular Palpation of heart: Normal PMI, no thrills. Auscultation of heart: Normal rate and rhythm, normal S1 and S2, no murmurs. Carotid pulses: 2+ bilaterally. Abdominal aorta: Normal. Femoral pulses: 2+ bilaterally. Pedal pulses: 2+ bilaterally. Peripheral vascular exam: Normal. Examination of extremities for edema and/or varicosities: Normal. Chest Chest: Normal. Abdomen Abdomen: Non-tender, no masses. Liver and spleen: No hepatomegaly or splenomegaly. Examination for hernias: No hernias appreciated. Anus, perineum, and rectum: Normal sphincter tone, no masses, no prolapse. Stool sample for occult blood: Negative. Genitourinary Scrotal contents: Normal testes, no masses. Penis: Normal, no lesions. Digital rectal exam of prostate: Normal size, no masses. Lymphatic Palpation of lymph nodes in neck: No lymphadenopathy. Palpation of lymph nodes in axillae: No lymphadenopathy. Palpation of lymph nodes in groin: No lymphadenopathy. Musculoskeletal Gait and station: Normal. Skin Skin and subcutaneous tissue: Normal without rashes or lesions. Neurologic Cranial nerves: Cranial nerves 2-12 intact. Cortical function: Normal mental status. Psychiatric Judgment and insight: Normal. Orientation to person, place and time: Normal. Recent and remote memory: Intact. Mood and affect: Normal. Genitourinary: The penis was normal. Examination of the penis showed a normal meatus. The scrotum was normal. The testes were normal. normal sphincter tone, no rectal tenderness, no rectal masses, nofistula seen, no anal fissure, no residual hemorrhoidal skin tags seen, no internal hemorrhoids andno external hemorrhoids. The prostate was normal. Constitutional General appearance: No acute distress, well appearing and well nourished. Head and Face Head and face: Normal. Eyes Conjunctiva and lids: No erythema, swelling or discharge. Pupils and irises: Equal, round, reactive to light. Ophthalmoscopic examination: Normal fundi and optic discs. Ears, Nose, Mouth, and Throat External inspection of ears and nose: Normal. Otoscopic examination: Tympanic membranes translucent with normal light reflex. Canals patent without erythema. Hearing: Normal. Nasal mucosa, septum, and turbinates: Normal without edema or erythema. Neck Neck: Supple, symmetric, trachea midline, no masses. Thyroid: Normal, no thyromegaly. Pulmonary Respiratory effort: No increased work of breathing or signs of respiratory distress. Percussion of chest: Normal. Palpation of chest: Normal. Auscultation of lungs: Clear to auscultation. Cardiovascular Palpation of heart: Normal PMI, no thrills. Chest Breasts: Normal, no dimpling or skin changes appreciated. Palpation of breasts and axillae: Normal, no masses palpated. Chest: Normal. Abdomen Abdomen: Non-tender, no masses. Liver and spleen: No hepatomegaly or splenomegaly. Lymphatic Palpation of lymph nodes in neck: No lymphadenopathy. Musculoskeletal Gait and station: Normal. Inspection/palpation of digits and nails: Normal without clubbing or cyanosis. Inspection/palpation of joints, bones, and muscles: Abnormal. (notes) Appearance - right knee swelling and round back, but no increased kyphosis, no scoliosis and no razorback spine. Surgical incision was not clean, dry, and intact. Palpation - right knee tenderness. Notes pain at right knee cap/crepitus. Range of motion: Normal. Stability: Normal. Muscle strength/tone: Normal. Skin Skin and subcutaneous tissue: Normal without rashes or lesions. Neurologic Cranial nerves: Cranial nerves 2-12 intact. Cortical function: Normal mental status. Reflexes: 2+ and symmetric. Coordination: Normal finger to nose and heel to paez. Assessment 1. Encounter for preventive health examination (V70.0) (Z00.00) 2. Atrial fibrillation (427.31) (I48.91) 3. Fatigue (780.79) (R53.83) 4. Obstructive sleep apnea (327.23) (G47.33) 5. Premature ventricular contractions (427.69) (I49.3) 6. Erectile dysfunction (607.84) (N52.9) Plan Health Maintenance ?? Always use a seat belt and shoulder strap when riding or driving a motor vehicle.; Status:Complete; Done: 26Apr2016 11:46AM Ordered; For:Health Maintenance; Ordered By:Pb Su; ?? Begin a limited exercise program.; Status:Complete; Done: 26Apr2016 11:46AM Ordered; For:Health Maintenance; Ordered By:Pb Su; ?? Decreasing the stress in your life may help your condition improve.; Status:Complete; Done: 26Apr2016 11:46AM Ordered; For:Health Maintenance; Ordered By:Pb Su; ?? Diets that are low in carbohydrates and high in protein are very popular for weight loss.; Status:Complete; Done: 26Apr2016 11:46AM Ordered; For:Health Maintenance; Ordered By:Pb Su; ?? Drink plenty of fluids.; Status:Complete; Done: 26Apr2016 11:46AM Ordered; For:Health Maintenance; Ordered By:Pb Su; ?? Eat a low fat and low cholesterol diet.; Status:Complete; Done: 26Apr2016 11:46AM Ordered; For:Health Maintenance; Ordered By:Pb Su; ?? Eat foods that are high in calcium.; Status:Complete; Done: 26Apr2016 11:46AM Ordered; For:Health Maintenance; Ordered By:Pb Su; ?? Keep a diary of when and what you eat.; Status:Complete; Done: 26Apr2016 11:46AM Ordered; For:Health Maintenance; Ordered By:Pb Su; ?? Limit your use of alcohol to 2 drinks or cans of beer a day.; Status:Complete; Done: 26Apr2016 11:46AM Ordered; For:Health Maintenance; Ordered By:Pb Su; ?? Regular aerobic exercise can help reduce stress.; Status:Complete; Done: 26Apr2016 11:46AM Ordered; For:Health Maintenance; Ordered By:Pb Su; ?? Stretch and warm up your muscles during the first 10 minutes , then cool down your muscles for the last 10 minutes of exercise.; Status:Complete; Done: 26Apr2016 11:46AM Ordered; For:Health Maintenance; Ordered By:Pb Su; ?? There are ways to decrease your stress and improve your sense of well-being. We encourage you to keep active and exercise regularly. Make time to take care of yourself and participate in activities that you enjoy. Stay connected to friends and family that can support and comfort you. If at any time you have thoughts of harming yourself or someone else, contact us immediately.; Status:Complete; Done: 26Apr2016 11:46AM Ordered; For:Health Maintenance; Ordered By:Pb Su; ?? Use a sun block product with an SPF of 15 or more.; Status:Complete; Done: 26Apr2016 11:46AM Ordered; For:Health Maintenance; Ordered By:Pb Su; ?? Vitamins can help you get daily requirements that your diet may not be giving you.; Status:Complete; Done: 26Apr2016 11:46AM Ordered; For:Health Maintenance; Ordered By:Pb Su; ?? We encourage you to begin to make lifestyle changes to help control your blood pressure. These may include losing weight, increasing your activity level, limiting salt in your diet, decreasing alcohol intake, and eating a diet low in fat and rich in fruits and vegetables.; Status:Complete; Done: 26Apr2016 11:46AM Ordered; For:Health Maintenance; Ordered By:Pb Su; ?? We recommend routine visits to a dentist.; Status:Complete; Done: 26Apr2016 11:46AM Ordered; For:Health Maintenance; Ordered By:Pb Su; ?? We recommend that you follow the Mediterranean diet. ; Status:Complete; Done: 26Apr2016 11:46AM Ordered; For:Health Maintenance; Ordered By:Pb Su; ?? We recommend that you follow these rules for gun safety.; Status:Complete; Done: 26Apr2016 11:46AM Ordered; For:Health Maintenance; Ordered By:Pb Su; ?? We recommend that you follow these steps to lower your risk of osteoporosis.; Status:Complete; Done: 26Apr2016 11:46AM Ordered; For:Health Maintenance; Ordered By:Pb Su; ?? We recommend you modify your diet to achieve and maintain a healthy weight. Being underweight may increase your risk of developing health problems from vitamin and mineral deficiencies. We recommend a balanced diet rich in fruits and vegetables. You may also consider increasing your calorie intake by eating more frequently or adding nuts, avocados, and low-fat cheese or milk to your meals. Please let us know if you would like to learn more about your nutrition and calorie needs, and additional options to help you achieve your weight goals.; Status:Complete; Done: 26Apr2016 11:46AM Ordered; For:Health Maintenance; Ordered By:Pb Su; ?? We suggest that you eat more soy in your diet.; Status:Complete; Done: 26Apr2016 11:46AM Ordered; For:Health Maintenance; Ordered By:Pb Su; ?? We want you to follow the Therapeutic Lifestyle Changes (TLC) diet.; Status:Complete; Done: 26Apr2016 11:46AM Ordered; For:Health Maintenance; Ordered By:Pb Su; ?? Call if: You have any warning signs of skin cancer.; Status:Complete; Done: 26Apr2016 11:46AM Ordered; For:Health Maintenance; Ordered By:Pb Su; Discussion/Summary Summary: 51 yo male for health maintenance visit: reviwed PMH, performed hx and exam and addressed medical issues:back pain; HLP; PVC's; ED; DEBBIE, Fatigue.Addressed health maintenance schedule: needs colonoscopy, labs! Emphasized lifestyle modification ie diet,exercise, weight loss.Client voiced understanding/agreement. See Care Guide Impression: health maintenance visit, 04/26/16. Currently, he eats an adequate diet. Prostate cancer screening: the risks and benefits of prostate cancer screening were discussed, prostate cancer screening is current and PSA was ordered. Testicular cancer screening: the risks and benefits of testicular cancer screening were discussed and testicular cancer screening is current. Colorectal cancer screening: the risks and benefits of colorectal cancer screening were discussed, colorectal cancer screening is current and fecal occult blood testing is needed every year. Screening lab work includes glucose and lipid profile. The risks and benefits of immunizations were discussed. He was advised osmany evaluated by an media relations coordinator and a dentist. Advice and education were given regarding nutrition, aerobic exercise, weight bearing exercise, calcium supplements, vitamin D supplements, sunscreen useand seat belt use. Patient discussion: discussed with the patient. Positive adolescent depression screening. Advanced Care Plan Discussion The subject of advanced care planning was brought up with Mr. Barker and he was willing to discuss.Further documentation of this discussion can be found in the provider note and within the POLST form scanned into the EMR. Who is present for today's discussion? Patient. Healthcare Status: not completed Advanced Care Planning is making decisions about the care to receive if unable to speak for themselves. Yes, Advanced Care Plan objectives have been explained to the Patient and/or Healthcare Agent The decisions are based on the Patient's personal values, preferences and discussions with their loved ones. Yes, the decisions are based on the Patient's personal values, preferences, and discussions with loved ones. Identify, if the Patient is in an accident or an illness leaves them unable to talk about wishes, who will speak for them. Other: Was information regarding life-sustaining treatments discussed? Yes. Patient's decision of treatment he/she would want if diagnosed with a life- limiting illness Yes. Has Patient shared personal values with loved ones? No. If not, have they been advised to do so? Yes. Has the Patient discussed personal values/wishes with Healthcare Provider? No. Has the Patient completed the Advanced Directives? No. Amount of time spent with Patient/Family/Healthcare Agent face to face: 5 min Signatures Electronically signed by : Pb Su M.D.; Apr 26 2016 11:50AM BUTCHER APPRENTICE (Author) documented in this encounter Plan of Treatment Not on file documented as of this encounter Visit Diagnoses Not on filedocumented in this encounter Care Teams Tanker Service Attendant Relationship Specialty Start Date End Date Pb Su MD [address] [place] [address] PCP - General 04/26/16 documented as of this encounter
--- OUTSIDE RECORDS SUMMARY | 2024-11-14 10:15 | XMS_ITS | Encounter Summary ---
Author Organization [facility] Address [address] [place] [address]. [place], [place] [address] [place] [id number] Care Team Providers Care Segmental Wall Installer Name Role Phone Pb Su MD Primary Care Provider [phone] Pb Su MD Primary Care Provider [phone] Encounter Details Date Type Department Care Team (Latest Contact Info) Description 05/19/2015 Abstract [facility] Social History Tobacco [...] on filedocumented in this encounter Care Teams Segmental Wall Installer Relationship Specialty Start Date End Date Pb Su MD [address] [place] [address] PCP - General 04/26/16 Pb Su MD [address] [place] [address] PCP - General 05/19/15 04/25/16 documented as of this encounter
--- OUTSIDE RECORDS SUMMARY | 2024-11-14 10:15 | XMS_ITS | Encounter Summary ---
Author Organization [facility] Address [address] [place] [address]. [place], [place] [id number] [place] [address] Care Team Providers Care Outreach Representative Name Role Phone Pb Su MD Primary Care Provider [phone] Pb Su MD Primary Care Provider [phone] Encounter Details Date Type Department Care Team (Latest Contact Info) Description 09/28/2015 Abstract [facility] Social [...] on filedocumented in this encounter Care Teams Outreach Representative Relationship Specialty Start Date End Date Pb Su MD [address] [place] [address] PCP - General 04/26/16 Pb Su MD [address] [place] [address] PCP - General 05/19/15 04/25/16 documented as of this encounter
--- OUTSIDE RECORDS SUMMARY | 2024-11-14 10:15 | XMS_ITS | Encounter Summary ---
Author Organization [facility] Address [address] [place] [address]. [place], [place] [address] [place] [address] Care Team Providers Care Delphi Programmer Name Role Phone Pb Su MD Primary Care Provider [phone] Pb Su MD Primary Care Provider [phone] Encounter Details Date Type Department Care Team (Latest Contact Info) Description 05/24/2015 Abstract [facility] Social History Tobacco Use Types [...] on filedocumented in this encounter Care Teams Delphi Programmer Relationship Specialty Start Date End Date Pb Su MD [address] [place] [address] PCP - General 04/26/16 Pb Su MD [address] [place] [address] PCP - General 05/19/15 04/25/16 documented as of this encounter
--- OUTSIDE RECORDS SUMMARY | 2024-11-14 10:15 | XMS_ITS | Encounter Summary ---
Author Organization [facility] Address [address] [place] [address]. [place] [address] [place] [address] Care Team Providers Care Muffle Operator Name Role Phone Pb Su MD Primary Care Provider [phone] Pb Su MD Primary Care Provider [phone] Encounter Details Date Type Department Care Team (Late st Contact Info) Description 05/19/2015 Abstract [facility] [place], [place] [id number] Pb Su MD [address] [place], [place] [address] Social History Tobacco Use Types Packs/Day Years Used Date Smoking Tobacco: Never Assessed Sex and Gender Information Value Date Recorded Sex Assigned at Not on file Legal Sex Male 7:22 PM CDT Gender Identity Not on file Sexual Orientation Not on file documented as of this encounter Plan of Treatment Not on file documented as of this encounter Visit Diagnoses Diagnosis Cough documented in this encounter Care Teams Muffle Operator Relationship Specialty Start Date End Date Pb Su MD [address] [place], [place] [address] PCP - General 04/26/16 Pb Su MD [address] [place], [place] [address] PCP - General 05/19/15 04/25/16 documented as of this encounter
--- OUTSIDE RECORDS SUMMARY | 2024-11-14 10:16 | XMS_ITS | Encounter Summary ---
Author Organization [facility] Address [address] [place] [address]. [place], [place] [id number] [place] [address] Care Team Providers Care Bit Grinder Name Role Phone Pb Su MD Primary Care Provider [phone] Pb Su MD Primary Care Provider Pb Su MD Primary Care Provider [phone] Encounter Details Date Type Department Care Team (Latest Contact Info) Description 12/18/2014 Abstract [facility] Social History Tobacco Use Types Packs/Day Years Used Date Smoking Tobacco: Never Assessed Sex and Gender Information Value Date Recorded Sex Assigned at Not on file Legal Sex Male 7:22 PM CDT Gender Identity Not on file Sexual Orientation Not on file documented as of this encounter Progress Notes * Pb Su MD - 12/18/2014 2:41 PM CST Verified Results Free / Total Testosterone 07Dec2014 07:30AM Pb Su Test Name Result Flag Reference TESTOSTERONE,TOTAL,LC/MS/MS 331 Reference range: 250 to 1100 Unit: ng/dL For more information on this test, go to http://education.[employer] (formerly [employer]).VISENZE/faq/ TotalTestosteroneLCMSMS TESTOSTERONE,FREE 71.5 Reference range: 35.0 to 155.0 Unit: pg/mL Test Performed by [facility], [facility], [address] [place] [address] Pb Garcia M.D., Ph.D., Director of Laboratories , CLIA [id number] documented in this encounter Plan of Treatment Not on file documented as of this encounter Visit Diagnoses Not on filedocumented in this encounter Care Teams Bit Grinder Relationship Specialty Start Date End Date Pb Su MD [address] [place], [place] [id number] PCP - General 04/26/16 Pb Su MD [address] [place], [place] [id number] PCP - General 05/19/15 04/25/16 Pb Su MD [address] [place], [place] [id number] PCP - General 12/07/14 05/18/15 documented as of this encounter
--- OUTSIDE RECORDS SUMMARY | 2024-11-14 10:16 | XMS_ITS | Encounter Summary ---
Author Organization [facility] Address [address] [place] [address]. [place], [place] [address] [place] [address] Care Team Providers Care Element Burner Name Role Phone Pb Su MD Primary Care Provider [phone] Pb Su MD Primary Care Provider [phone] Pb Su MD Primary Care Provider [phone]- [phone] Encounter Details Date Type Department Care Team (Latest Contact Info) Description 12/07/2014 Abstract [facility] Social History Tobacco Use Types Packs/Day Years Used Date Smoking Tobacco: Never Assessed Sex and Gender Information Value Date Recorded Sex Assigned at Not on file Legal Sex Male 7:22 PM CDT Gender Identity Not on file Sexual Orientation Not on file documented as of this encounter Progress Notes * Pb Su MD - 12/07/2014 5:20 PM CST Verified Results CBC WO Diff ( Hemogram ) 07Dec2014 07:30AM Pb Su Test Name Result Flag Reference White Blood Cell Count (WBC) 12.1 X10'3/uL H 4.8-10.8 Red Blood Cell Count (RBC) 4.72 X10'6/uL 4.70-6.10 Hemoglobin (HGB) 13.8 g/dL L 14.0-18.0 Hematocrit (HCT) 40.7 % L 43.0-54.0 Mean Corpuscular Volume (MCV) 86.2 fL 80.0-94.0 Mean Corpuscular Hgb (MCH) 29.2 pg 27.0-31.0 Mean Corpuscular Hgb Conc (MCH 33.9 g/dL 32.0-36.0 Red Cell Distrib Width (RDW) 12.3 % 11.5-14.5 Platelet Count (PLT) 291 X10'3/uL 130-400 Mean Platelet Volume (MPV) 11.5 fL 9.3-12.2 Compr Metabolic Prof ( CMP ) 07Dec2014 07:30AM Pb Su Test Name Result Flag Reference Sodium (Na) 139 mmol/L 136-145 Potassium (K) 4.3 mmol/L 3.5-5.1 Chloride (Cl) 100 mmol/L 98-107 Carbon Dioxide (CO2) 28 mmol/L 22-29 Anion Gap 15 8-20 Blood Urea Nitrogen (BUN) 17 mg/dL 8-23 Creatinine 0.90 mg/dL 0.70-1.20 Glomerular Filt Rate Calc >60 mL/min/1.73m'2 >60 Glomerular Filt Rate (AA) Calc >60 >60 NOTE: eGFR is not calculated for patients <18 years of age. This is an estimated GFR (CKD EPI) and should not be used for calculating drug doses. mL/min/1.73m'2 Glucose 98 mg/dL 70-99 Calcium 9.8 mg/dL 8.6-10.2 Total Bilirubin 0.4 mg/dL 0.2-1.2 AST/GOT 15 IU/L 0-40 ALT/GPT 19 IU/L 0-41 Alkaline Phosphatase (ALKP) 61 IU/L 40-129 Total Protein 6.7 g/dL 6.4-8.3 Albumin 4.4 g/dL 3.5-5.2 Globulin, Calc 2.3 g/dL 2.3-3.6 A:G Ratio 1.9 1.0-2.0 Lipid Profile 07Dec2014 07:30AM Pb Su Test Name Result Flag Reference Cholesterol 255 mg/dL H <200 Triglycerides 149 mg/dL <150 HDL Cholesterol 48 mg/dL L >59 LDL Cholesterol, Calculated 177 mg/dL H <100 Non HDL, Calc 207 mg/dL H <130 NOTE: WHEN THE TRIGLYCERIDES ARE >200 mg/dL, NON HDL C IS A SECONDARY TARGET OF THERAPY, WITH A GOAL 30 mg/dL HIGHER THAN THE IDENTIFIED LDL C GOAL. Cholesterol/HDL Ratio 5.3 H 0.0-4.5 VLDL Cholesterol 30 mg/dL 5-55 Lipid Profile Comment 1 (Report) [facility] CONCENSUS REPORT RECOMMENDATIONS: ADULT CHILD LOW RISK: CHOLESTEROL <200 <170 TRIGLYCERIDE <150 --- HDL >=60 --- LDL <100 <110 BORDERLINE: CHOLESTEROL 200-239 170-199 TRIGLYCERIDE 150-199 --- HDL 40-59 --- LDL 100-159 110-129 HIGH RISK: CHOLESTEROL >=240 >=200 TRIGLYCERIDE >=200 --- HDL <40 --- LDL >=160 >=130 TSH W Reflex Free T4 07Dec2014 07:30AM Pb Su Test Name Result Flag Reference TSH w Reflex Free T4 0.76 mIU/mL 0.27-4.20 FREE T4 NOT INDICATED Prostate Specif Ag ( PSA ) Scrn 07Dec2014 07:30AM Pb Su Test Name Result Flag Reference Prostate Specific Antigen 0.860 ng/mL <4.0 TEST WAS PERFORMED USING THE YADI METHOD. PSA VALUES OBTAINED WITH OTHER ASSAY METHODS OR KITS CANNOT BE USED INTERCHANGEABLY WITH RESULTS OBTAINED BY THE YADI METHOD. documented in this encounter Plan of Treatment Not on file documented as of this encounter Visit Diagnoses Not on filedocumented in this encounter Care Teams Element Burner Relationship Specialty Start Date End Date Pb Su MD [address] [place], [place] [id number] PCP - General 04/26/16 Pb Su MD [address] [place], [place] [id number] PCP - General 05/19/15 04/25/16 Pb Su MD [address] [place], [place] [id number] PCP - General 12/07/14 05/18/15 documented as of this encounter
--- OUTSIDE RECORDS SUMMARY | 2024-11-14 10:16 | XMS_ITS | Encounter Summary ---
Author Organization [facility] Address [address] [place] [address]. [place], [place] [id number] [place] [address] Care Team Providers Care Family Dinner Service Specialist Name Role Phone Pb Su MD Primary Care Provider [phone] Pb Su MD Primary Care Provider Pb Su MD Primary Care Provider Encounter Details Date Type Department Care Team (Latest Contact Info) Description 12/10/2014 Abstract [facility] Social History Tobacco Use Types Packs/Day Years Used Date Smoking Tobacco: Never Assessed Sex and Gender Information Value Date Recorded Sex Assigned at Not on file Legal Sex Male 7:22 PM CDT Gender Identity Not on file Sexual Orientation Not on file documented as of this encounter Progress Notes * Pb Su MD - 12/10/2014 9:05 PM CST Verified Results Vitamin D 25 - Hydroxy 07Dec2014 07:30AM Pb Su Test Name Result Flag Reference Vitamin D 25-Hydroxy 30 NG/ML 30-100 SUPPLEMENTING WITH VITAMIN D2 MAY RESULT IN FALSELY LOW RESULTS, CLINICAL CORRELATION NEEDED. INTERPRETATION DEFICIENT <20 INSUFFICIENT 20-30 SUFFICIENT 30-100 POTENTIAL INTOXICATION >100 TESTING PERFORMED AT [facility], A MEMBER OF THE [facility]. documented in this encounter Plan of Treatment Not on file documented as of this encounter Visit Diagnoses Not on filedocumented in this encounter Care Teams Family Dinner Service Specialist Relationship Specialty Start Date End Date Pb Su MD [address] [place], [place] [id number] PCP - General 04/26/16 Pb Su MD [address] [place], [place] [id number] PCP - General 05/19/15 04/25/16 Pb Su MD [address] [place], [place] [id number] PCP - General 12/07/14 05/18/15 documented as of this encounter
--- OUTSIDE RECORDS SUMMARY | 2024-11-14 10:16 | XMS_ITS | Encounter Summary ---
Author Organization [facility] Address [address] [place] [address]. [place] [address] [place] [address] Care Team Providers Care Seed Laboratory Assistant Name Role Phone Pb Su MD Primary Care Provider [phone] Pb Su MD Primary Care Provider Pb Su MD Primary Care Provider [phone]- [phone] Encounter Details Date Type Department Care Team (Latest Contact Info) Description 01/24/2015 Abstract [facility] Social History Tobacco Use Types [...] on filedocumented in this encounter Care Teams Seed Laboratory Assistant Relationship Specialty Start Date End Date Pb Su MD [address] [place], [place] [id number] PCP - General 04/26/16 Pb Su MD [address] [place], [place] [phone] PCP - General 05/19/15 04/25/16 Pb Su MD [address] [place] [address] PCP - General 12/07/14 05/18/15 documented as of this encounter
--- OUTSIDE RECORDS SUMMARY | 2024-11-14 10:16 | XMS_ITS | Encounter Summary ---
Author Organization [facility] Address [address] [place] [address]. [place] [address] [place] [address] Care Team Providers Care Burial Vault Setter Name Role Phone Pb Su MD Primary Care Provider [phone]- [phone] Pb Su MD Primary Care Provider Pb Su MD Primary Care Provider [phone]- [phone] Encounter Details Date Type Department Care Team (Latest Contact Info) Description 01/09/2015 Abstract [facility] Social History Tobacco Use Types [...] on filedocumented in this encounter Care Teams Burial Vault Setter Relationship Specialty Start Date End Date Pb Su MD [address] [place], [place] [phone] PCP - General 04/26/16 Pb Su MD [address] [place], [place] [phone] PCP - General 05/19/15 04/25/16 Pb Su MD [address] [place] [address] PCP - General 12/07/14 05/18/15 documented as of this encounter
--- OUTSIDE RECORDS SUMMARY | 2024-11-14 10:16 | XMS_ITS | Encounter Summary ---
Author Organization [facility] Address [address] [place] [address]. [place] [address] [place] [address] Care Team Providers Care Kitchen Mechanic Name Role Phone Pb Su MD Primary Care Provider +1- [phone] Pb Su MD Primary Care Provider Pb Su MD Primary Care Provider Encounter Details Date Type Department Care Team (Late st Contact Info) Description 12/26/2014 Abstract [facility] Family Medicine - [place] [address], [address] [place] [id number] Pb Su MD [address] [place] [address] Social History Tobacco Use Types Packs/Day Years Used Date Smoking Tobacco: Never Assessed Sex and Gender Information Value Date Recorded Sex Assigned at Not on file Legal Sex Male 7:22 PM CDT Gender Identity Not on file Sexual Orientation Not on file documented as of this encounter Last Filed Vital Signs Vital Sign Reading Time Taken Comments Blood Pressure 120/84 12/26/2014 7:43 AM HYDROPULPER Pulse 64 12/26/2014 7:43 AM HYDROPULPER Temperature - - Respiratory Rate - - Oxygen Saturation - - Inhaled Oxygen Concentration - - Weight 99.3 kg (219 lb) 12/26/2014 7:43 AM HYDROPULPER Height 182.9 cm (6') 12/26/2014 7:43 AM HYDROPULPER Body Mass Index 29.7 12/26/2014 7:43 AM HYDROPULPER documented in this encounter Progress Notes * Pb Su MD - 12/26/2014 7:45 AM CST Chief Complaint lab follow up History of Present Illness The patient is being seen for worsening symptoms of fatigue. Symptoms: fatigue, but no generalized weakness. [...] no swollen glands, no dyspnea, no irregular heartbeat, no chest pain, no abdominal pain, no nausea, no vomiting, no diarrhea, no constipation, no change in weight, noheat intolerance, no cold intolerance, no polyuria and no polydipsia. The patient is not currently being treated for this problem. By report, there is poor symptom control. The patient is being seen for a routine clinic follow-up of obstructive sleep apnea. Symptoms: excessive daytime sleepiness, snoring, unrefreshing sleep, impaired concentration, memory problems and irritability, but no witnesse d apnea during sleep, no witnessed gasping during sleep, no sleepy when sedentary and no restless legs. The patient is currently experiencing symptoms. Onset was gradual. The symptoms occur frequently. The episodes occur daily and chronic> 2 years. He describes this as mild, mild to moderate andworsening. Exacerbating factors: fatigue and weight gain, but not exacerbated by alcohol use, not exacerbated by sedative medications and not exacerbated by smoking. No relieving factors are noted. Associated symptoms: depression and dry throat, but no morning headaches, no shortness of breath, no decreased libido and no sore throat. The patient is not currently being treated for this problem. Byreport, there is poor symptom control. Pertinent medical history: no obesity, no asthma, no chronicobstructive pulmonary disease, no congestive heart failure, no [...] ECG and sleep specialist evaluation. Past treatment has included alcohol avoidance, sedative avoidance, weight loss program and CPAP. The patient is being seen for a routine clinic follow-up of a sleep disorder. The patient has obstructive sleep apnea. Symptoms: excessive daytime sleepiness, snoring, sleepiness when sedentary, unrefreshing sleep, impaired concentration, memory problems, irritability and restless legs, but nowitnessed sleep apnea, no nocturnal choking, no difficulty falling asleep and no early awakening. The patient is currently experiencing symptoms. Onset was gradual several years ago. The symptoms occur frequently. The episodes occur daily and > 2 years. He describes this as mild, mild to moderate and worsening. Exacerbating factors: sleeping position and fatigue, but not exacerbated by alcoholuse and not exacerbated by sedative medications. Relieving factors: CPAP use, weight loss and but admits to non compliance. Associated symptoms: decreased libido and weight gain, but no morning headaches, no nocturia and no shortness of breath. Current treatment includes good sleep hygiene, alcoholavoidance, sedative avoidance, CPAP therapy and non compliant. [...] congestive heart failure, no environmental allergies, no hypertension,no cardiovascular disease, no cerebrovascular disease and no gastroesophageal reflux disease. Previous presentation included snoring, impaired concentration and irritability. Past evaluation has included nighttime sleep study and sleep specialist evaluation. Past treatment has included CPAP therapy. The patient is being seen for a routine clinic follow-up of a general ill feeling. Symptoms: malaise, fatigue, arthralgias, myalgias, weight gain and depression, but no general ill feeling, no general discomfort, no fever, no chills, no night sweats, no muscle weakness, no joint swelling, no weightloss, no difficulty sleeping, no anxiety and no [...] control. Pertinent medical history: cardiovascular disease and dysthymia,and atrial fibrillation, but no thyroid disorder, no migraine headaches, no osteoarthritis, no rheumatologic disease and no malignancy. Family history: osteoarthritis. Pertinent social history: no relationship changes, no housing changes, no major life event and no current abuse victim. He was previously evaluated by me. Previous presentation included malaise, fatigue, arthralgias, myalgias, joint stiffness, difficulty sleeping, depression and headache. Past evaluation has included complete blood count, thyroid function testing, BUN/creatinine, glucose, liver function tests and chest x-ray. Past treatment has included vitamin supplements. The patient states his hyperlipidemia has been poorly controlled since the last visit. Interval Events: Worsening fatigue suspected secondary to DEBBIE. Symptoms: The [...] not doing well with his hyperlipidemia goals. The patient's LDL goal is ,120mg/dl mg/dL. The patient's last LDL was 170mg/dl mg/dL. The patient is due for a lipid panel, liver function tests and 6 weeks. The patient is being seen for follow-up of vitamin D deficiency. Disease type: vitamin D insufficiency. The disease involves normocalcemia. There are no known disease complications. He was previously evaluated by me. Previous presentation included muscle pain, muscle cramps and abnormal vitamin D screening. Past evaluation has included 25- hydroxyvitamin D, 1,25-dihydroxyvitamin D, liver function tests and [...] experiencing symptoms. Pertinent medical history: no rickets, noosteopenia, no osteoporosis, no celiac disease, no inflammatory [...] chronic kidney disease and no liver disease. The patient states his osteoarthritis has been stable since the last visit. He has no complicationsfrom osteoarthritis. Interval Events: (Increasing fatigue) Symptoms: Stable knee pain, stable hip pain, stable shoulder pain and stable back pain. Associated symptoms include joint stiffness, but no localized joint swelling. Activities: able to do activities of daily living without limitations. Medications: Medication(s): a non-steroidal antiinflammatory agent (p.r.n). Disease Management: The patient is doing well with his osteoarthritis goals (Stable) Goals for osterarthritis management:. Review of Systems Constitutional: malaise and fatigue, but no fever and no chills. Head and Face: negative. Eyes: negative. ENT: negative. Cardiovascular: palpitations. Respiratory: negative. Gastrointestinal: negative. Genitourinary: negative. Musculoskeletal: back pain and joint stiffness. Integumentary and Breasts: negative. Neurological: negative. Psychiatric: negative. Endocrine: negative. Hematologic and Lymphatic: a tendency for easy bruising, but no tendency for easy bleeding. Active Problems 1. Arm numbness left (782.0) (R20.8) 2. Atrial fibrillation (427.31) (I48.91) 3. Bilateral [...] Of Hypercholesterolemia (V12.29) (Z86.39) 3. History of Primary snoring (786.09) (R06.83) 4. History of Weakness of limb (729.89) (R29.898) 5. History of Wears glasses (V49.89) (Z97.3) Surgical History 1. Denied: History of Surgery Family History Mother 1. No pertinent family history Father 2. Family history of Social History ?? Alcohol Use (History) ?? Five children ?? Former smoker (V15.82) (Z87.891) ? Occupation Current Meds 1. Claritin 10 MG Oral Tablet; Therapy: (Recorded:[id number]) to Recorded 2. PredniSONE 20 MG Oral Tablet; TAKE 2 TABLETS DAILY; Therapy: 05Dec2014 to (Evaluate:15Dec2014) Requested for: 05Dec2014; Last Rx:05Dec2014 Ordered Allergies 1. Acetaminophen-Codeine #3 TABS Vitals Recorded by : Daphne Harvey at 81Tkv0863 07:43AM Temperature 98.4 F Heart Rate 64 Systolic 120 Diastolic 84 Height 6 ft Weight 219 lb BMI Calculated 29.7 BSA Calculated 2.21 Physical Exam Constitutional General appearance: Abnormal. Well-developed, [...] Cardiovascular Regular rate and rhythm. Abdomen Abdomen: Non-tender, no masses. Liver and [...] and time: Normal. Mood and affect: Normal. Assessment 1. Hyperlipidemia (272.4) (E78.5) 2. Fatigue (780.79) (R53.83) 3. Obstructive sleep apnea (327.23) (G47.33) 4. Vitamin d deficiency (268.9) (E55.9) 5. Osteoarthritis (715.90) (M19.90) Plan Hyperlipidemia 1. Start: Atorvastatin Calcium 20 MG Oral Tablet; TAKE 1 TABLET BY MOUTH AT BEDTIME Rx By: Pb Su; Dispense: 90 Days ; #:90 Tablet; Refill: 3; For: Hyperlipidemia; GAYLE = N; Verified Transmission to [facility]; Last Updated By: [employer]; 12/26/2014 7:54:55 AM 2. Compr Metabolic Prof ( CMP ) Status: Active Requested for: 26Dec2014 Perform: [facility] Due: 25Jan2015; Ordered; For: Hyperlipidemia; Ordered By: Pb Su 3. Creatine Kinase ( CK ) ( CPK ) Status: Active Requested for: 26Dec2014 Perform: [facility] Due: 25Jan2015; Ordered; For: Hyperlipidemia; Ordered By: Pb Su 4. Lipid Profile Status: Active Requested for: 26Dec2014 Perform: [facility] Due: 25Jan2015; Ordered; For: Hyperlipidemia; Ordered By: Pb Su Obstructive sleep apnea 5. Avoid alcoholic beverages. Status: Complete Done: 27Dec2014 11:56AM Ordered; For: Obstructive sleep apnea; Ordered By: Pb Su 6. Avoid medications and/or triggers that caused your symptoms/problems. Status: Complete Done: [id number] 11:56AM Ordered; For: Obstructive sleep apnea; Ordered By: Pb Su 7. Avoid operating heavy machinery and driving a vehicle until you have been rechecked. Status: Complete Done: 27Dec2014 11:56AM Ordered; For: Obstructive sleep apnea; Ordered By: Pb Su 8. Avoid sleeping on your back. Status: Complete Done: 27Dec2014 11:56AM Ordered; For: Obstructive sleep apnea; Ordered By: Pb Su 9. Begin or continue regular aerobic exercise. Gradually work up to at least 3 sessions of 30 minutes of exercise a week. Status: Complete Done: 40Snv7550 11:56AM Ordered; For: Obstructive sleep apnea; Ordered By: Pb Su 10. Continue with our present treatment plan. Status: Complete Done: 27Dec2014 11:56AM Ordered; For: Obstructive sleep apnea; Ordered By: Pb Su 11. Please bring all medicines, vitamins, and herbal supplements with you when you come to the office. Status: Complete Done: 27Dec2014 11:56AM Ordered; For: Obstructive sleep apnea; Ordered By: Pb Su 12. Some eating tips that can help you lose weight. Status: Complete Done: 97Dmx8719 11:56AM Ordered; For: Obstructive sleep apnea; Ordered By: Pb Su 13. Some eating tips that can help you lose weight. Status: Complete Done: 40Pla3581 11:56AM Ordered; For: Obstructive sleep apnea; Ordered By: Pb Su 14. We encourage all of our patients to exercise regularly. 30 minutes of exercise or physical activity five or more days a week is recommended for children and adults. Status: Complete Done: 09Kxy4335 11:56AM Ordered; For: Obstructive sleep apnea; Ordered By: Pb Su 15. We have prescribed nasal CPAP. Status: Complete Done: 57Rjj2966 11:56AM Ordered; For: Obstructive sleep apnea; Ordered By: Pb Su 16. We recommend that you bring your body mass index down to 26. Status: Complete Done: 15Jru7882 11:56AM Ordered; For: Obstructive sleep apnea; Ordered By: Pb Su 17. We recommend you modify your diet to [...] programs that can help you achieve your goals. Status: Complete Done: 08Tup3229 11:56AM Ordered; For: Obstructive sleep apnea; Ordered By: Pb Su 18. You need to stop smoking. Though it is not easy, more than half of all adult smokers have quit. We encourage you to write down all the reasons you should quit smoking and set a quit date for yourself. Ask us how we can help. You may also call 8-393-QKXENOW for free resources and assistance. Status: Complete Done: 02Wpn2986 11:56AM Ordered; For: Obstructive sleep apnea; Ordered By: Pb Su 19. Call if: The symptoms are not better in 7 days. Status: Complete Done: 10Txi7918 11:56AM Ordered; For: Obstructive sleep apnea; Ordered By: Pb Su 20. Call if: The symptoms come back after a period of time of being normal. Status: Complete Done: 68Wnr2588 11:56AM Ordered; For: Obstructive sleep apnea; Ordered By: Pb Su 21. Call if: You feel unusually tired. Status: Complete Done: 81Mds1513 11:56AM Ordered; For: Obstructive sleep apnea; Ordered By: Pb Su 22. Call if: You feel your heart is beating too fast. Status: Complete Done: 59Mkr8424 11:56AM Ordered; For: Obstructive sleep apnea; Ordered By: Pb Su 23. Call if: You get a headache that does not go away with your usual treatment. Status: Complete Done: 78Ghq7086 11:56AM Ordered; For: Obstructive sleep apnea; Ordered By: Pb Su 24. Call if: You have a dry, hacking cough. Status: Complete Done: 78Nhp8138 11:56AM Ordered; For: Obstructive sleep apnea; Ordered By: Pb Su 25. Call if: You have feelings of extreme sadness and feelings of hopelessness. Status: Complete Done: 79Uku1007 11:56AM Ordered; For: Obstructive sleep apnea; Ordered By: Pb Su 26. Call if: You have frequent headaches. Status: Complete Done: 96Sih4923 11:56AM Ordered; For: Obstructive sleep apnea; Ordered By: Pb Su 27. Call if: You have swelling and puffiness of your lower leg or ankles. Status: Complete Done: 20Fso3752 11:56AM Ordered; For: Obstructive sleep apnea; Ordered By: Pb Su 28. Call if: Your nose is stuffy or feels plugged. Status: Complete Done: 73Srr4962 11:56AM Ordered; For: Obstructive sleep apnea; Ordered By: Pb Su 29. Call 861 if: You experience a new kind of chest pain (angina) or pressure. Status: Complete Done: 21Qkz7385 11:56AM Ordered; For: Obstructive sleep apnea; Ordered By: Pb Su 30. Seek Immediate Medical Attention if: You are thinking about harming yourself or someone else. Status: Complete Done: 29Pcq3408 11:56AM Ordered; For: Obstructive sleep apnea; Ordered By: Pb Su 31. Seek Immediate Medical Attention if: You faint or lose consciousness. Status: Complete Done: 70Wqb2929 11:56AM Ordered; For: Obstructive sleep apnea; Ordered By: Pb Su 32. Seek Immediate Medical Attention if: You feel short of breath even while resting. Status: Complete Done: 92Pra6461 11:56AM Ordered; For: Obstructive sleep apnea; Ordered By: Pb Su 33. Seek Immediate Medical Attention if: Your depression is worse. Status: Complete Done: 33Wby6250 11:56AM Ordered; For: Obstructive sleep apnea; Ordered By: Pb Su 34. Seek Immediate Medical Attention if: Your shortness of breath is getting worse. Status: Complete Done: 47Jxx3426 11:56AM Ordered; For: Obstructive sleep apnea; Ordered By: Pb Su Obstructive sleep apnea, Obstructive sleep apnea of adult 35. Sleep Study Referral Outpatient 49 yo male with history DEBBIE/ recent fatigue: -request Authorization for Sleep Specialist Status: Need Information - Financial Authorization Requested for: [id number] Ordered; For: Obstructive sleep apnea, Obstructive sleep apnea of adult; Ordered By: Pb Su Performed: Due: [id number] Discussion/Summary Summary: 49 yo male with recent fatigue, malaise, complex medical issues and co- morbitities: osteoarthritis, fatigue, HLP, Atrial Fibrillation[sinus],DEBBIE. Performed detailed history,systems review, examination, developed problem list, evaluation/treatment plan! See Care Guide. Sleep Consult placed thru . Lengthy appointment: evaluation, assessment, discussion: exceeding 25 minutes. Signatures Electronically signed by : Pb Su M.D.; Dec 27 2014 11:58AM HYDROPULPER (Author) documented in this encounter Plan of Treatment Not on file documented as of this encounter Visit Diagnoses Not on filedocumented in this encounter Care Teams Kitchen Mechanic Relationship Specialty Start Date End Date Pb Su MD [address] [place] [address] PCP - General 04/26/16 Pb Su MD [address] [place] [address] PCP - General 05/19/15 04/25/16 Pb Su MD [address] [place] [address] PCP - General 12/07/14 05/18/15 documented as of this encounter
--- OUTSIDE RECORDS SUMMARY | 2024-11-14 10:16 | XMS_ITS | Encounter Summary ---
Author Organization [facility] Address [address] [place] [address]. [place], [place] [address] [place] [address] Care Team Providers Care Tender Coordinator Name Role Phone Pb Su MD Primary Care Provider [phone]- [phone] Pb Su MD Primary Care Provider Pb Su MD Primary Care Provider Encounter Details Date Type Department Care Team (Latest Contact Info) Description 12/14/2014 Abstract [facility] Social History Tobacco Use Types Packs/Day Years Used Date Smoking Tobacco: Never Assessed Sex and Gender Information Value Date Recorded Sex Assigned at Not on file Legal Sex Male 7:22 PM CDT Gender Identity Not on file Sexual Orientation Not on file documented as of this encounter Progress Notes * Vahe Whitehead Md, MD - 12/14/2014 2:18 PM CST Message Message: Call placed to patient at this time. NO answer left message on machine to call back for lab results. Lab results mailed to patient at this time. Normal labs save elevated cholesterol PCP recommends starting a statin 20 mg daily. No further action required. Signatures Electronically signed by : Gi Aquino, ; Dec 14 2014 2:19PM TRAVEL OT (Author) documented in this encounter Plan of Treatment Not on file documented as of this encounter Visit Diagnoses Not on filedocumented in this encounter Care Teams Tender Coordinator Relationship Specialty Start Date End Date Pb Su MD [address] [place] [id number] PCP - General 04/26/16 Pb Su MD [address] [place] [address] PCP - General 05/19/15 04/25/16 Pb Su MD [address] [facility] [place] [address] PCP - General 12/07/14 05/18/15 documented as of this encounter
--- OUTSIDE RECORDS SUMMARY | 2024-11-14 10:16 | XMS_ITS | Encounter Summary ---
Author Organization [facility] Address [address] [place] [address]. [place] [address] [place] [address] Care Team Providers Care Professional Skater Name Role Phone Pb Su MD Primary Care Provider +1- [phone] Pb Su MD Primary Care Provider [phone] Pb Su MD Primary Care Provider +1- [phone] Encounter Details Date Type Department Care Team (Latest Contact Info) Description 01/03/2015 Abstract [facility] Social History Tobacco [...] on filedocumented in this encounter Care Teams Professional Skater Relationship Specialty Start Date End Date Pb Su MD [address] [place], [place] [id number] PCP - General 04/26/16 Pb Su MD [address] [place], [place] [id number] PCP - General 05/19/15 04/25/16 Pb Su MD [address] [place] [address] PCP - General 12/07/14 05/18/15 documented as of this encounter
--- OUTSIDE RECORDS SUMMARY | 2024-11-14 10:16 | XMS_ITS | Encounter Summary ---
Author Organization [facility] Address [address] [place] [address]. [place] [address] [place] [address] Care Team Providers Care Manager Functional Name Role Phone Pb Su MD Primary Care Provider +1- [phone] Pb Su MD Primary Care Provider Pb Su MD Primary Care Provider +1- [phone] Encounter Details Date Type Department Care Team (Latest Contact Info) Description 03/28/[address] [facility] Social History Tobacco Use Types [...] on filedocumented in this encounter Care Teams Manager Functional Relationship Specialty Start Date End Date Pb Su MD [address] [place], [place] [id number] PCP - General 04/26/16 Pb Su MD [address] [place], [place] [id number] PCP - General 05/19/15 04/25/16 Pb Su MD [address] [place] [address] PCP - General 12/07/14 05/18/15 documented as of this encounter
--- OUTSIDE RECORDS SUMMARY | 2024-11-14 10:16 | XMS_ITS | Encounter Summary ---
Author Organization [facility] Address [address] [place] [address]. [place] [address] [place] [address] Care Team Providers Care Mental Health Tech Name Role Phone Pb Su MD Primary Care Provider +1- [phone] Pb Su MD Primary Care Provider Pb Su MD Primary Care Provider Encounter Details Date Type Department Care Team (Late st Contact Info) Description 03/20/2015 Abstract [facility] Family Medicine - [place] [address] [place] [id number] Pb Su MD [address] [place] [address] Social History Tobacco Use Types Packs/Day Years Used Date Smoking Tobacco: Never Assessed Sex and Gender Information Value Date Recorded Sex Assigned at Not on file Legal Sex Male 7:22 PM CDT Gender Identity Not on file Sexual Orientation Not on file documented as of this encounter Last Filed Vital Signs Vital Sign Reading Time Taken Comments Blood Pressure 124/76 03/20/2015 6:53 AM CDT Pulse 58 03/20/2015 6:53 AM CDT Temperature - - Respiratory Rate - - Oxygen Saturation - - Inhaled Oxygen Concentration - - Weight 101.6 kg (224 lb) 03/20/2015 6:53 AM CDT Height 182.9 cm (6') 03/20/2015 6:53 AM CDT Body Mass Index 30.38 03/20/2015 6:53 AM CDT documented in this encounter Progress Notes * Pb Su MD - 03/20/2015 7:00 AM CDT Reason For Visit Chronic Recheck Visit Chief Complaint CO FATIGUE History of Present Illness 49 yo male well known to Dr Su: chief complaint fatigue and cough after recent URI. Client admits to finally using CPAP machine and has noted improved daytime performance, characterized by increased concentration, decreased headaches and irriability. We performed history, systems review, medication reconciliation, developed problem list and differential diagnosis: fatigue secondary to sleep apnea; cough secondary to recent viral illness, ostearthritis and multiple arthralgias. We will obtain PFT's Problem List: Problem # Fatigue-suspected secondary to sleep apnea: now on CPAP Problem# Sleep Disorder/ DEBBIE -now more compliant with CPAP Problem# Cough: secondary to viral upper respiratory illness PFT's pending! Problem# arthralgias,OA Problem# HLP The patient is being seen for worsening symptoms of and clinical re-evaluation: 02/2015 fatigue. Symptoms: fatigue, but no generalized weakness. [...] myalgias, no fever, no swollen glands, no dyspnea,no irregular heartbeat, no chest pain, no abdominal pain, no nausea, no vomiting, no diarrhea, no constipation, no change in weight, no heat intolerance, no cold intolerance, no polyuria and no polydipsia. The patient is not currently being treated for this problem. By report, there is poor symptomcontrol. The patient is being seen for a routine clinic follow-up of and clinical re- evaluation: 02/2015 obstructive sleep apnea. Symptoms: excessive daytime sleepiness, [...] chronic hypoxemia, no chronic hypercapnia, no cardiac arrh ythmia, no gastroesophageal reflux disease and no alcohol abuse. He was previously evaluated by a colleague several years ago year(s) ago. Previous presentation included snoring. Past evaluation has included complete blood count, metabolic profile, thyroid function testing, sleep study, pulmonary fu nction testing, echocardiography, ECG and sleep specialist evaluation. Past treatment has included alcohol avoidance, sedative avoidance, weight loss program and CPAP. The patient is being seen for a routine clinic follow-up of and clinical re- evaluation: 02/2015 a sleep disorder. The patient has obstructive [...] and worsening. Exacerbating factors: sleeping position and fatigue,but not exacerbated by alcohol use and not [...] for a routine clinic follow-up of and clinical re- evaluation: 02/2105 a general ill feeling. Symptoms: malaise, fatigue, arthralgias, myalgias, weight gain and depression, but no general ill feeling, no general discomfort, no fever, no chills, no night sweats, no muscle weakness, no joint swelling, no weight loss, no difficulty sleeping, no anxiety and no suicidal thoughts. Associated symptoms: headache, but no visual disturbance, no temporal tenderness, no vertigo, nolightheadedness, no chest pain, no shortness of breath, [...] stiffness, difficulty sleeping, depression and headache. Past e valuation has included complete blood count, thyroid function testing, BUN/creatinine, glucose, liver function tests and chest x-ray. Past treatment has included vitamin supplements. The patient is being seen for an initial evaluation of chronic cough. He was self-referred. (At least 2- to 3-week history of a mildly productive cough) Symptoms: cough and fatigue, but no non-productive cough, no hemoptysis, no dyspnea, no wheezing, no nasal congestion, no rhinorrhea, no postnasaldrainage, no sore throat, no hoarseness, no foul taste in mouth, no dysphagia, no chest pain, no heartburn, no fever, no night sweats and no weight loss The patient presents with complaints of productive cough (yellow to green sputum). The patient is currently experiencing symptoms. The patient describes the cough as hacking and productive. Onset wasgradual. Onset followed Upper respiratory infection. The symptoms occur frequently. Currently, the symptoms occur daily. He describes this as moderate in severity and worsening. Exacerbating factors:smoke exposure and cold exposure. No relieving factors are noted. Current treatment includes Increasing fluid, khfu-ywd-kukxvvy cough and cold remedies. By report, there is poor symptom control. The patient states his osteoarthritis has been Clinical re-evaluation: 02/2105, but stable since the last visit. Comorbid Illnesses: multiple arthralgias. He has no complications from osteoarthritis. Interval Events: (Increasing fatigue) Symptoms: Stable knee pain, stable hip pain, stable shoulder pain and stable back pain. Associated symptoms include joint stiffness, but no localized joint swelling. Activities: able to do activities of daily living without limitations. Medications: Medication(s): a non-steroidal antiinflammatory agent (p.r.n). Disease Management: The patient is doing well with his osteoarthritis goals. (Stable). The patient states his hyperlipidemia has been poorly controlled since the last visit. He has no comorbid illnesses. He has no significant interval events. Symptoms: Denies chest pain, denies intermittent leg claudication, denies muscle pain, denies muscle weakness and denies . Associated symptoms include no focal neurologic deficits and no memory loss.The patient's LDL goal is <120 mg/dl mg/dL. The patient is due for a lipid panel and liver function tests. Additional History: Labs: Chol 274mg/dl TGL 214mg/dl HDL 43mg/dl LDL 188mg/dl. Review of Systems Constitutional: malaise and fatigue, [...] (780.79) (R53.83) 7. Hyperlipidemia (272.4) (E78.5) 8. Hyperlipidemia (272.4) (E78.5) 9. Knee pain, right (719.46) (M25.561) 10. Knee pain, unspecified laterality (719.46) (M25.569) 11. Left arm pain (729.5) (M79.602) 12. [...] Tablet; TAKE 1 TABLET BY MOUTH AT BEDTIME; Therapy: 26Dec2014 to (Evaluate:21Dec2015) Requested for: 26Dec2014; Last Rx:26Dec2014 Ordered 2. Claritin 10 MG Oral Tablet; Therapy: (Recorded:05Mmk0383) to Recorded 3. PredniSONE 20 MG Oral Tablet; TAKE 2 TABLETS DAILY; Therapy: 05Dec2014 to (Evaluate:15Dec2014) Requested for: 05Dec2014; Last Rx:05Dec2014 Ordered Allergies 1. Acetaminophen-Codeine #3 TABS Vitals Recorded: 20Mar2015 06:53AM Temperature 98.4 F Heart Rate 58 Systolic 124 Diastolic 76 Height 6 ft Weight 224 lb BMI Calculated 30.38 BSA Calculated 2.24 Physical Exam Constitutional General appearance: Abnormal. Well-developed, [...] to auscultation. Cardiovascular Regular rate and rhythm. Lymphatic Palpation of lymph nodes in neck: No lymphadenopathy. Skin Skin and subcutaneous tissue: Normal without rashes or lesions. There was a raised lesion, suspected skin tag left frontal temporal region of the face. Neurologic Cranial nerves: Cranial nerves 2-12 intact. Psychiatric Orientation to person, place and time: Normal. Mood and affect: Normal. Assessment 1. Fatigue (780.79) (R53.83) 2. Cough (786.2) (R05) 3. Obstructive sleep apnea (327.23) (G47.33) 4. Hyperlipidemia (272.4) (E78.5) Plan Cough 1. Pulmonary Function Test Outpatient 49 yo male with suspected RAD: ex smoker: request Authorization: PFT's to include pre/post bronchodilators, room air ABG. Status: Need Information - Financial Authorization Requested for: 20Mar2015 Ordered; For: Cough; Ordered By: Pb Su Performed: Due: [id number]; Last Updated By: Vanessa Gray; 03/20/2015 12:45:04 PM Obstructive sleep apnea 2. Benzonatate 200 MG Oral Capsule; TAKE 1 CAPSULE 3 TIMES DAILY NEEDED Rx By: Pb Su; Dispense: 7 Days ; #:21 Capsule; Refill: 1; For: Obstructive sleep apnea; GAYLE = N; Verified Transmission to [facility]; Last Updated By: Marci Barber; 03/20/2015 7:13:25 AM 3. Avoid alcoholic beverages.; Status:Active; Requested for:[id number]; Ordered; For:Obstructive sleep apnea; Ordered By:Pb Su; 4. Avoid exposure to cigarette smoke.; Status:Active; Requested for:09Rdx1610; Ordered; For:Obstructive sleep apnea; Ordered By:Pb Su; 5. Avoid medications and/or triggers that caused your symptoms/problems.; Status:Active; Requested for:92Dha1156; Ordered; For:Obstructive sleep apnea; Ordered By:Pb Su; 6. Avoid sleeping on your back.; Status:Active; Requested for:12Ufv9415; Ordered; For:Obstructive sleep apnea; Ordered By:Pb Su; 7. Begin or continue regular aerobic exercise. Gradually work up to at least 3 sessions of 30 minutes of exercise a week.; Status:Active; Requested for:40Fnh5456; Ordered; For:Obstructive sleep apnea; Ordered By:Pb Su; 8. Continue with our present treatment plan.; Status:Active; Requested for:59Tod4748; Ordered; For:Obstructive sleep apnea; Ordered By:Pb Su; 9. Please bring all medicines, vitamins, and herbal supplements with you when you come to the office.; Status:Active; Requested for:85Ola4529; Ordered; For:Obstructive sleep apnea; Ordered By:Pb Su; 10. Some eating tips that can help you lose weight.; Status:Active; Requested for:35Jwx3072; Ordered; For:Obstructive sleep apnea; Ordered By:Pb Su; 11. Some eating tips that can help you lose weight.; Status:Active; Requested for:40Zql6184; Ordered; For:Obstructive sleep apnea; Ordered By:Pb Su; 12. We encourage all of our patients to exercise regularly. 30 minutes of exercise or physical activity five or more days a week is recommended for children and adults.; Status:Active; Requested for:20Mar2015; Ordered; For:Obstructive sleep apnea; Ordered By:Pb Su; 13. We recommend that you bring your body mass index down to 26.; Status:Active; Requested for:20Mar2015; Ordered; For:Obstructive sleep apnea; Ordered By:Pb Su; 14. We recommend you modify your diet to [...] that can help you achieve your goals.; Status:Active; Requested for:20Mar2015; Ordered; For:Obstructive sleep apnea; Ordered By:Pb Su; 15. We recommend you offer your child a diet that is low in fat and rich in fruits and vegetables. Avoid high intake of sweetened beverages like soda and fruit juices. We encourage you to eat meals and scheduled snacks as a family. Offer your child new foods regularly but do not force him or her to eat specific foods.; Status:Active; Requested for:20Mar2015; Ordered; For:Obstructive sleep apnea; Ordered By:Pb Su; 16. You need to stop smoking. Though it is not easy, more than half of all adult smokers have quit. We encourage you to write down all the reasons you should quit smoking and set a quit date for yourself. Ask us how we can help. You may also call 7-212-ZEXR-NOW for free resources and assistance.; Status:Active; Requested for:20Mar2015; Ordered; For:Obstructive sleep apnea; Ordered By:Pb Su; 17. Call if: The symptoms are not better in 7 days.; Status:Active; Requested for:20Mar2015; Ordered; For:Obstructive sleep apnea; Ordered By:Pb Su; 18. Call if: The symptoms come back after a period of time of being normal.; Status:Active; Requested for:[id number]; Ordered; For:Obstructive sleep apnea; Ordered By:Pb Su; 19. Call if: You feel unusually tired.; Status:Active; Requested for:39Ynj9599; Ordered; For:Obstructive sleep apnea; Ordered By:Pb Su; 20. Call if: You feel your heart is beating too fast.; Status:Active; Requested for:34Gbo3869; Ordered; For:Obstructive sleep apnea; Ordered By:Pb Su; 21. Call if: You get a headache that does not go away with your usual treatment.; Status:Active; Requested for:73Rab7384; Ordered; For:Obstructive sleep apnea; Ordered By:Pb Su; 22. Call if: You have a dry, hacking cough.; Status:Active; Requested for:13Msv5700; Ordered; For:Obstructive sleep apnea; Ordered By:Pb Su; 23. Call if: You have feelings of extreme sadness and feelings of hopelessness.; Status:Active; Requested for:77Awt4941; Ordered; For:Obstructive sleep apnea; Ordered By:Pb Su; 24. Call if: You have frequent headaches.; Status:Active; Requested for:68Egz7607; Ordered; For:Obstructive sleep apnea; Ordered By:Pb Su; 25. Call if: You have swelling and puffiness of your lower leg or ankles.; Status:Active; Requested for:79Wko8728; Ordered; For:Obstructive sleep apnea; Ordered By:Pb Su; 26. Call if: Your nose is stuffy or feels plugged.; Status:Active; Requested for:88Rzf9565; Ordered; For:Obstructive sleep apnea; Ordered By:Pb Su; 27. Call 911 if: You are considering suicide.; Status:Active; Requested for:16Sow1735; Ordered; For:Obstructive sleep apnea; Ordered By:Pb Su; 28. Call 911 if: You experience a new kind of chest pain (angina) or pressure.; Status:Active; Requested for:81Yhz1757; Ordered; For:Obstructive sleep apnea; Ordered By:Pb Su; 29. Seek Immediate Medical Attention if: You are thinking about harming yourself or someone else.; Status:Active; Requested for:72Sbx0878; Ordered; For:Obstructive sleep apnea; Ordered By:Pb Su; 30. Seek Immediate Medical Attention if: You faint or lose consciousness.; Status:Active; Requested for:29Ihd6666; Ordered; For:Obstructive sleep apnea; Ordered By:Pb Su; 31. Seek Immediate Medical Attention if: You feel short of breath even while resting.; Status:Active; Requested for:65Wgu7961; Ordered; For:Obstructive sleep apnea; Ordered By:Pb Su; 32. Seek Immediate Medical Attention if: Your child tells you about thoughts of harming themselves or someone else.; Status:Active; Requested for:39Ppi4441; Ordered; For:Obstructive sleep apnea; Ordered By:Pb Su; 33. Seek Immediate Medical Attention if: Your depression is worse.; Status:Active; Requested for:09Cbs5436; Ordered; For:Obstructive sleep apnea; Ordered By:Pb Su; 34. Seek Immediate Medical Attention if: Your shortness of breath is getting worse.; Status:Active; Requested for:66Gwd7792; Ordered; For:Obstructive sleep apnea; Ordered By:Pb Su; Discussion/Summary Summary: 49 yo male with complex medical history: fatigue, sleep disorder/ sleep apnea; ,cough following URI symptoms, arthralgias and osteoarthritis, HLP, Atrial Fibrillation[sinus],DEBBIE.At this timehe repordt more compliance with CPAP machine Performed detailed history,systems review, examination, developed problem list, evaluation/treatment plan! See Care Guide. Sleep Consult placed thru . Lengthy appointment: evaluation, assessment, discussion: exceeding 25 minutes. Signatures Electronically signed by : Pb Su M.D.; Mar 20 2015 8:46PM PROFESSIONAL SKATEBOARDER (Author) documented in this encounter Plan of Treatment Not on file documented as of this encounter Visit Diagnoses Not on filedocumented in this encounter Care Teams Mental Health Tech Relationship Specialty Start Date End Date Pb Su MD [address] [place] [address] PCP - General 04/26/16 Pb Su MD [address] [place], [place] [id number] PCP - General 05/19/15 04/25/16 Pb Su MD [address] [place], [place] [id number] PCP - General 12/07/14 05/18/15 documented as of this encounter
--- OUTSIDE RECORDS SUMMARY | 2024-11-14 10:16 | XMS_ITS | Encounter Summary ---
Author Organization [facility] Address [address] [place] [address]. [place] [address] [place] [address] Care Team Providers Care Solder Technician Name Role Phone Pb Su MD Primary Care Provider +1- [phone] Pb Su MD Primary Care Provider +1- [phone] Pb Su MD Primary Care Provider +1- [phone] Encounter Details Date Type Department Care Team (Latest Contact Info) Description 04/10/2015 Abstract [facility] Medical Group Social History Tobacco [...] on filedocumented in this encounter Care Teams Solder Technician Relationship Specialty Start Date End Date Pb Su MD [address] [place], [place] [id number] PCP - General 04/26/16 Pb Su MD [address] [place], [place] [id number] PCP - General 05/19/15 04/25/16 Pb Su MD [address] [place] [address] PCP - General 12/07/14 05/18/15 documented as of this encounter
--- OUTSIDE RECORDS SUMMARY | 2024-11-14 10:16 | XMS_ITS | Encounter Summary ---
Author Organization [facility] Address [address] [place] [address]. [place] [address] [place] [address] Care Team Providers Care Reach Lift Truck Driver Name Role Phone Pb Su MD Primary Care Provider +1- [phone] Pb Su MD Primary Care Provider [phone] Pb Su MD Primary Care Provider +1- [phone] Encounter Details Date Type Department Care Team (Latest Contact Info) Description 01/05/2015 Abstract [facility] Medical Group [...] on filedocumented in this encounter Care Teams Reach Lift Truck Driver Relationship Specialty Start Date End Date Pb Su MD [address] [place], [place] [id number] PCP - General 04/26/16 Pb Su MD [address] [place], [place] [id number] PCP - General 05/19/15 04/25/16 Pb Su MD [address] [place] [address] PCP - General 12/07/14 05/18/15 documented as of this encounter
--- OUTSIDE RECORDS SUMMARY | 2024-11-14 10:16 | XMS_ITS | Encounter Summary ---
Author Organization [facility] Address [address] [place] [address]. [place] [address] [place] [address] Care Team Providers Care Environmental Field Technician Name Role Phone Pb Su MD Primary Care Provider +1- [phone] Pb Su MD Primary Care Provider Pb Su MD Primary Care Provider +1- [phone] Encounter Details Date Type Department Care Team (Latest Contact Info) Description 03/30/2015 Abstract [facility] Medical Group Social History Tobacco Use [...] filedocumented in this encounter Care Teams Environmental Field Technician Relationship Specialty Start Date End Date Pb Su MD [address] [place], [place] [id number] PCP - General 04/26/16 Pb Su MD [address] [place], [place] [id number] PCP - General 05/19/15 04/25/16 Pb Su MD [address] [place] [address] PCP - General 12/07/14 05/18/15 documented as of this encounter
--- OUTSIDE RECORDS SUMMARY | 2024-11-14 10:16 | XMS_ITS | Encounter Summary ---
Author Organization [facility] Address [address] [place] [address]. [place] [address] [place] [address] Care Team Providers Care Domestic Violence Advocate Name Role Phone Pb Su MD Primary Care Provider +1- [phone] Pb Su MD Primary Care Provider Pb Su MD Primary Care Provider +1- [phone] Encounter Details Date Type Department Care Team (Latest Contact Info) Description 01/25/2015 Abstract [facility] Medical Group Social History Tobacco [...] on filedocumented in this encounter Care Teams Domestic Violence Advocate Relationship Specialty Start Date End Date Pb Su MD [address] [place], [place] [id number] PCP - General 04/26/16 Pb Su MD [address] [place], [place] [id number] PCP - General 05/19/15 04/25/16 Pb Su MD [address] [place] [address] PCP - General 12/07/14 05/18/15 documented as of this encounter
--- OUTSIDE RECORDS SUMMARY | 2024-11-14 10:17 | XMS_ITS | Encounter Summary ---
Author Organization [facility] Address [address] [place] [address]. [place] [address] [place] [address] Care Team Providers Care Crusher Loader Equipment Operator Name Role Phone Pb Su MD Primary Care Provider Pb Su MD Primary Care Provider Pb Su MD Primary Care Provider [phone] Encounter Details Date Type Department Care Team (Late st Contact Info) Description 12/07/2014 Abstract [facility] [address] [place] [place] [id number] Pb Su MD [address] [place], [place] [id number] Social History Tobacco Use Types Packs/Day Years Used Date Smoking Tobacco: Never Assessed Sex and Gender Information Value Date Recorded Sex Assigned at Not on file Legal Sex Male 7:22 PM CDT Gender Identity Not on file Sexual Orientation Not on file documented as of this encounter Plan of Treatment Not on file documented as of this encounter Visit Diagnoses Diagnosis Atrial fibrillation ([facility]) Atrial fibrillation documented in this encounter Care Teams Crusher Loader Equipment Operator Relationship Specialty Start Date End Date Pb Su MD [address] [place], [place] [address] PCP - General 04/26/16 Pb Su MD [address] [place] [address] PCP - General 05/19/15 04/25/16 Pb Su MD [address] [place] [address] PCP - General 12/07/14 05/18/15 documented as of this encounter
--- OUTSIDE RECORDS SUMMARY | 2024-11-14 10:17 | XMS_ITS | Encounter Summary ---
Author Organization [facility] Address [address] [place] [address]. [place], [place] [id number] [place] [id number] Care Team Providers Care Dietitian Therapeutic Name Role Phone Pb Su MD Primary Care Provider Pb Su MD Primary Care Provider Pb Su MD Primary Care Provider [phone] Pb Su MD Primary Care Provider Pb Su MD Primary Care Provider [phone] Encounter Details Date Type Department Care Team (Late st Contact Info) Description 05/05/2014 Abstract [facility] Multispecialty Care - [address], [address] [place] [address] Fernie Erickson MD Social History Tobacco Use Types Packs/Day Years Used Date Smoking Tobacco: Never Assessed Sex and Gender Information Value Date Recorded Sex Assigned at Not on file Legal Sex Male 7:22 PM CDT Gender Identity Not on file Sexual Orientation Not on file documented as of this encounter Last Filed Vital Signs Vital Sign Reading Time Taken Comments Blood Pressure 140/80 05/05/2014 3:33 PM CDT Pulse 80 05/05/2014 3:33 PM CDT Temperature - - Respiratory Rate - - Oxygen Saturation - - Inhaled Oxygen Concentration - - Weight 97.5 kg (215 lb) 05/05/2014 3:33 PM CDT Height 182.9 cm (6') 05/05/2014 3:33 PM CDT Body Mass Index 29.16 05/05/2014 3:33 PM CDT documented in this encounter Progress Notes * Fernie Erickson MD - 05/05/2014 3:[address] PB SU PCP OUTSOLE FLEXER [place] FORMER SMOKER AMBIDEXTEROUS MRI 5-3-14 C SPINE LAST OFFICE VISIT WAS 01-03-11.RELEASED PRN. DENIED NECK PAIN. PAIN TO LEFT SHOULDER BLADE, TOP AND ANTERIOR LEFT SHOULDER PAIN STARTED APROX 5 MONTHS AGO..DENIED INJURY. SAW RE LEFT SHOULDER..HAD P.T. LEFT SHOULDER PAIN IS 99% GONE. PAIN WHEN LYING ON RT SIDE INCREASES LEFT SHOULDER PAIN. SITTING EASES SHOULDER PAIN. OCCASIONAL NUMBNESS TO LEFT ARM AND DID HAVE NUMBNESS TO LEFT 2ND AND 3RD DIGITS....GONE NOW. DRIVING, RAISING LEFT ARM, AND SLEEPING MAKES NUMBNESS COME TO LEFT ARM. WHEN NUMBNESS WENT AWAY...APROX IN MARCH.. HE NOTICED LEFT ARM WEAKNESS THAT HAS SINCE COME BACK. WORKS OUT IN GYM THREE DAYS A WEEK. P.T. FOR LEFT SHOULDER THAT HELPED 99%. JANUARY 2014 FOR 2 MONTHS CHIRO AVA SANTANA. 02/04 FOR ABOUT 2 MONTHS NO INJECTIONS NO SPINE SURGERIES. 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 He is being referred for evaluation of resolved left arm pain. Patient is actually known to me. He was last seen in December 2010. 5 months ago developed spontaneous radicular pain into his left shoulder and proximal arm with occasional numbness in his left second and third fingers. He was evaluated by orthopedics because of the preponderance of left shoulder pain. Underwent PT. Symptoms essentially resolved. He takes occasional Advil. He denies any right arm complaints. Active Problems 1. Arm numbness left (782.0) (R20.8) 2. Atrial fibrillation (427.31) (I48.91) 3. Bilateral hand pain (729.5) (M79.641,M79.642) 4. Fatigue (780.79) (R53.83) 5. Hyperlipidemia (272.4) (E78.5) 6. Knee pain, right (719.46) (M25.561) 7. Knee pain, unspecified laterality (719.46) (M25.569) 8. Left arm pain (729.5) (M79.602) 9. Lower back pain (724.2) (M54.5) 10. Muscle spasm (728.85) (M62.49) 11. Osteoarthritis (715.90) (M19.90) 12. Pain in joint of left shoulder (719.41) (M25.512) 13. Premature ventricular contractions (427.69) (I49.3) 14. Right knee pain (719.46) (M25.561) 15. Routine history and physical examination of adult (V70.0) (Z00.00) 16. Screening for prostate cancer (V76.44) (Z12.5) 17. Vitamin d deficiency (268.9) (E55.9) Past Medical History 1. History of Arthritis (V13.4) 2. History Of Hypercholesterolemia (V12.29) (Z86.39) 3. History of Obstructive sleep apnea of adult (327.23) (G47.33) 4. History of Primary snoring (786.09) (R06.5) Family History Mother 1. No pertinent family history Social History ?? Alcohol Use (History) ?? Former smoker (V15.82) (Z87.891) Current Meds 1. Atorvastatin Calcium 20 MG Oral Tablet; TAKE 1 TABLET BY MOUTH AT BEDTIME; Therapy: 45Ike9566 to (Evaluate:24Jun2014); Last Rx:[id number] Ordered 2. Claritin 10 MG Oral Tablet; Therapy: (Recorded:[id number]) to Recorded 3. Cyclobenzaprine HCl - 10 MG Oral Tablet; TAKE 1 TABLET 3 TIMES DAILY NEEDED; Therapy: 84Bdi1074 to (Evaluate:26Feb2014) Requested for: 83Boh1390; Last Rx:[id number] Ordered 4. TraMADol HCl - 50 MG Oral Tablet; TAKE 1 TABLET 3 TIMES DAILY; Therapy: 81Ojr9812 to (Evaluate:06Feb2014); Last Rx:[id number] Ordered Allergies 1. Acetaminophen-Codeine #3 TABS Vitals Recorded by : Abena Leal at 05May2014 03:33PM Heart Rate 80 Systolic 140 Diastolic 80 Height 6 ft Weight 215 lb BMI Calculated 29.16 BSA Calculated 2.2 Physical Exam Neurologic examination Higher order function alert and oriented x3, [place] Coma Scale 15, speech fluent Cranial nerves pupils equal round react to light, extraocular muscles full, face symmetric, tongue midline Cerebellar examination no dysmetria on finger-nose testing Motor examination good strength upper extremities Results/Data MRI of the cervical spine from March 26, 2014 was reviewed. Segmental analysis. C3- 4 and C4-5 mild left foraminal stenosis. C5-6 right paracentral disc osteophyte complex resulting in severe foraminal stenosis. C6-7 left paracentral disc osteophyte complex resulting in severe foraminal stenosis. I dictation but Plan 1. Stop: Atorvastatin Calcium 20 MG Oral Tablet Rx By: Pb Su; Dispense: 90 Days ; #:90 Tablet; Refill: 3; For: Hyperlipidemia; GAYLE = N; Print Rx; Last Updated By: Abena Leal; 05/05/2014 3:52:03 PM 2. Stop: TraMADol HCl - 50 MG Oral Tablet Rx By: Pb Su; Dispense: 10 Days ; #:30 Tablet; Refill: 1; For: Left arm pain, Pain in joint of left shoulder; GAYLE = N; Print Rx; Last Updated By: Abena Leal; 05/05/2014 3:52:04 PM 3. Stop: Cyclobenzaprine HCl - 10 MG Oral Tablet Rx By: Pb Su; Dispense: 10 Days ; #:30 Tablet; Refill: 3; For: Muscle spasm; GAYLE = N; Sent To: [facility]; Last Updated By: Abena Leal; 05/05/2014 3:52:04 PM Discussion/Summary Patient is a 49-year-old gentleman who has resolved left proximal arm pain. Imaging demonstrates radiographically compressive lesions right C5-6 and left C6-7. At this point in time he is clinically asymptomatic. No further treatment indicated. I think it's inevitable that the patient will develop symptoms. When he does he knows to call the office. Thank you for allowing me to participate in his care. Signatures Electronically signed by : Abena Leal, ; May 05 2014 4:05PM PILE DRIVING TECHNICIAN (Co-author) Electronically signed by : Fernie Erickson M.D.; May 05 2014 4:38PM PILE DRIVING TECHNICIAN (Author) documented in this encounter Plan of Treatment Not on file documented as of this encounter Visit Diagnoses Not on filedocumented in this encounter Care Teams Dietitian Therapeutic Relationship Specialty Start Date End Date Pb Su MD [address] [place] [address] PCP - General 04/26/16 Pb Su MD [address] [place] [address] PCP - General 05/19/15 04/25/16 Pb Su MD [address] [place], [place] [address] PCP - General 12/07/14 05/18/15 Pb Su MD [address] [place], [place] [address] PCP - General 12/05/14 12/06/14 Pb Su MD [address] [place], [place] [address] PCP - General 03/23/14 12/04/14 documented as of this encounter
--- OUTSIDE RECORDS SUMMARY | 2024-11-14 10:17 | XMS_ITS | Encounter Summary ---
Author Organization [facility] Address [address] [place] [address]. [place], [place] [address] [place] [address] Care Team Providers Care Insole Beveler Name Role Phone Pb Su MD Primary Care Provider [phone] Pb Su MD Primary Care Provider [phone] Pb Su MD Primary Care Provider Pb Su MD Primary Care Provider Encounter Details Date Type Department Care Team (Latest Contact Info) Description 12/06/2014 Abstract [facility] Social History Tobacco Use Types Packs/Day Years Used Date Smoking Tobacco: Never Assessed Sex and Gender Information Value Date Recorded Sex Assigned at Not on file Legal Sex Male 7:22 PM CDT Gender Identity Not on file Sexual Orientation Not on file documented as of this encounter Progress Notes * Pb Su MD - 12/06/2014 12:59 PM CST Verified Results XR CHEST 2 VIEW ( Routine ) 05Dec2014 12:38PM Pb Su Test Name Result Flag Reference XR CHEST 2 VIEW (Report) AVA CEDILLO ORDERING MD: PB SU MD ACCT: [id number] ADMIT/SERVICE DATE: 12/05/14 DISCHARGE DATE: : 1965 PT TYPE: REG CLI SEX: M ORD SITE: [facility] IMAGING STUDY DATE REPORT # PROCEDURE CODE PROCEDURE 12/05/14 [id number] CXR2V XR CHEST 2 VIEW EXTORDERID [id number] ACCESSION NUMBER [id number] CHART DOCUMENT IMPRESSION: MILD BRONCHITIS AND POSSIBLE MINIMAL EFFUSIONS. HISTORY: COUGH. CHEST X-RAY TECHNIQUE: TWO VIEWS. FINDINGS: MINIMAL PLEURAL EFFUSION IS SEEN. PERIBRONCHIAL CUFFING AND PERIHILAR INFILTRATES ARE SUSPICIOUS FOR BRONCHITIS. NO LOBAR PNEUMONIA IS PRESENT. CALCIFIED NODULE IN THE RIGHT LUNG IS CONSISTENT WITH GRANULOMATOUS CHANGE. MILD SPURRING IN THE THORACIC SPINE IS SEEN. ELECTRONICALLY SIGNED BY: ROLANDA LANCASTER M.D. 12/06/2014 12:36 P ROLANDA LANCASTER M.D. P #[id number] P/MA CC: PB SU M.D. documented in this encounter Plan of Treatment Not on file documented as of this encounter Visit Diagnoses Not on filedocumented in this encounter Care Teams Insole Beveler Relationship Specialty Start Date End Date Pb Su MD [address] [place] [address] PCP - General 04/26/16 Pb Su MD [address] [place], [place] [address] PCP - General 05/19/15 04/25/16 Pb Su MD [address] [place] [address] PCP - General 12/07/14 05/18/15 Pb Su MD [address] [place] [address] PCP - General 12/05/14 12/06/14 documented as of this encounter
--- OUTSIDE RECORDS SUMMARY | 2024-11-14 10:17 | XMS_ITS | Encounter Summary ---
Author Organization [facility] Address [address] [place] [address]. [place], [place] [id number] [place] [address] Care Team Providers Care Building Construction Engineer Name Role Phone Pb Su MD Primary [...] Department Care Team (Latest Contact Info) Description 02/02/2014 Abstract [facility] Medical Group [...] filedocumented in this encounter Care Teams Building Construction Engineer Relationship Specialty Start Date End Date Pb Su MD [address] [place], [place] [address] PCP - General 04/26/16 Pb Su MD [address] [place], [place] [id number] PCP - General 05/19/15 04/25/16 Pb Su MD [address] [place], [place] [id number] PCP - General 12/07/14 05/18/15 Pb Su MD [address] [place], [place] [id number] PCP - General 12/05/14 12/06/14 Pb Su MD [address] [place], [place] [id number] PCP - General 03/23/14 12/04/14 Pb Su MD [address] [place], [place] [id number] PCP - General 03/21/14 03/22/14 Pb Su MD [address] [place] [address] PCP - General 03/16/14 03/20/14 Pb Su MD [address] [place] [address] PCP - General 03/14/14 03/15/14 Pb Su MD [address] [place] [address] PCP - General 03/09/14 03/13/14 Pb Su MD [address] [place], [place] [address] PCP - General 03/02/14 03/08/14 Pb Su MD [address] [place], [place] [address] PCP - General 02/28/14 03/01/14 Pb Su MD [address] [place], [place] [address] PCP - General 02/25/14 02/27/14 Pb Su MD [address] [place], [place] [address] PCP - General 02/23/14 02/24/14 Pb Su MD [address] [place], [place] [id number] PCP - General 02/17/14 02/22/14 Pb Su MD [address] [place], [place] [id number] PCP - General 11/02/13 02/16/14 documented as of this encounter
--- OUTSIDE RECORDS SUMMARY | 2024-11-14 10:17 | XMS_ITS | Encounter Summary ---
Author Organization [facility] Address [address] [place] [address]. [place], [place] [address] [place] [address] Care Team Providers Care Prevocational/Rehabilitation Counselor Name Role Phone Pb Su MD Primary [...] Care Team (Late st Contact Info) Description 01/28/2014 Abstract [facility] Family Medicine - [place] [address] [place] [address] Pb Su MD [address] [place] [address] Social History Tobacco Use Types Packs/Day Years Used Date Smoking Tobacco: Never Assessed Sex and Gender Information Value Date Recorded Sex Assigned at Not on file Legal Sex Male 7:22 PM CDT Gender Identity Not on file Sexual Orientation Not on file documented as of this encounter Last Filed Vital Signs Vital Sign Reading Time Taken Comments Blood Pressure 108/70 01/28/2014 7:19 AM ACCOUNTS PAYABLE COORDINATOR Pulse 64 01/28/2014 7:19 AM ACCOUNTS PAYABLE COORDINATOR Temperature - - Respiratory Rate - - Oxygen Saturation - - Inhaled Oxygen Concentration - - Weight 100.2 kg (221 lb) 01/28/2014 7:19 AM ACCOUNTS PAYABLE COORDINATOR Height 182.9 cm (6') 01/28/2014 7:19 AM ACCOUNTS PAYABLE COORDINATOR Body Mass Index 29.97 01/28/2014 7:19 AM ACCOUNTS PAYABLE COORDINATOR documented in this encounter Progress Notes * Pb Su MD - 01/28/2014 7:30 AM CST Chief Complaint Patient here for left arm numbness and pain. History of Present Illness 48 yo male with recurrent left shoulder pain, left arm numbness-reports parathesias, not associatedwith weakness. Performed focussed neuromuscular exam which was intact and symptoms correspond with C7 distribution. +Neers and negative Hunter! Lengthy discussion regarding etiology and differential diagnosis of left arm parathesias! The patient is being seen for worsening symptoms of abnormal sensation. Symptoms: numbness, paresthesia and pins and needle sensation, but no dysesthesia and no hyperesthesia. The patient is currently experiencing symptoms. Associated symptoms: neck pain and joint stiffness. Current treatment includes nonsteroidal anti-inflammatory drugs. By report, there is poor symptom control. The first episode of abnormal sensations occurred one month ago month(s) ago. Pertinent medical history: degenerative spine disease. Risk factors: repetitive activity. The patient states his osteoarthritis has been worse since the last visit. Comorbid Illnesses: history atrial fibrillation. He has no complications from osteoarthritis. Interval Events: He was evaluated by me. He presented with joint pain and fatigue. The evaluation included rheumatoid factor, ALEX, an erythrocyte sedimentation rate, a basic metabolic panel, a comprehensive metabolic panel, liver function tests, a CBC and an X-ray. Treatment included a non-steroidal anti-inflammatory drug. Response to treatment: Minimal improvement. Symptoms: Stable knee pain, stable hip pain, worsened finger pain, stable shoulder pain, denies neck pain and denies back pain. Associated symptoms include joint stiffness, but no localized joint swelling. Lifestyle: Diet: He consumes a diverse and healthy diet.Weight Issues: He has weight concerns.Exercise: He exercises regularly.Smoking: He does not use tobacco.Alcohol: He denies alcohol use.Drug Use: He denies drug use. Activities: no limitations. Able to dress oneself, including tying shoelaces and doing buttons? Without any difficulty. Able to get in and out of bed? Without any difficulty. Able to lift a full cup or glass to one's mouth? Without any difficulty. Able to walk outdoors on flat ground? Without any difficulty. Able to wash and dry one's entire body? Without any difficulty. Able to turn regular faucets off and on? Without any difficulty. Able to get in and out of the car? Without any difficulty. Medications: The patient is adherent with his medication regimen. He denies medication side effects. Medication(s): a non-steroidal antiinflammatory agent. Disease Management: The patient is not doing well with his osteoarthritis goals. Goals for osterarthritis management: Weight: not yet at goal. Exercise: not yet at goal. Review of Systems Constitutional: fatigue and sleep loss secondary to pain. Head and Face: negative. Eyes: negative. ENT: negative. Cardiovascular: palpitations. Respiratory: negative. Gastrointestinal: negative. Genitourinary: negative. Musculoskeletal: back pain and joint stiffness. Integumentary and Breasts: negative. Psychiatric: negative. Endocrine: negative. Hematologic and [...] 4. History of Primary snoring (786.09) (R06.5) Social History ?? Alcohol Use (History) ?? Former smoker (V15.82) (Z87.891) Current Meds 1. Atorvastatin Calcium 20 MG Oral Tablet; TAKE 1 TABLET BY MOUTH AT BEDTIME; Therapy: 35Ebt4660 to (Evaluate:24Jun2014); Last Rx:[id number] Ordered 2. Claritin 10 MG Oral Tablet; Therapy: (Recorded:32Gjd1303) to Recorded 3. Cyclobenzaprine HCl - 10 MG Oral Tablet; TAKE 1 TABLET 3 TIMES DAILY NEEDED; Therapy: 46Wzv4107 to (Evaluate:26Feb2014) Requested for: 96Ave4705; Last Rx:[id number] Ordered 4. TraMADol HCl - 50 MG Oral Tablet; TAKE 1 TABLET 3 TIMES DAILY; Therapy: 06Fid4785 to (Evaluate:06Feb2014); Last Rx:[id number] Ordered Allergies 1. Acetaminophen-Codeine #3 TABS Vitals Recorded by : Marcial Denisse at 28Jan2014 07:19AM Temperature 97.3 F, Oral Heart Rate 64, L Radial Pulse Quality Normal, L Radial Respiration 14 Respiration Quality Normal Blood Pressure 70 mm Hg, LUE, Sitting 108 mm Hg, LUE, Sitting Height 6 ft Weight 221 lb BMI Calculated 29.97 kg/m2 BSA Calculated 2.22 m2 Pain Scale 7 Comment Left arm pain and numbness Physical Exam Constitutional General appearance: No acute distress, well appearing and well nourished. Neck Neck: Abnormal. The neck was normal. Thyroid: Normal, no thyromegaly. Pulmonary Respiratory effort: No increased work of breathing or signs of respiratory distress. Auscultation of lungs: Clear to auscultation. Cardiovascular Auscultation of heart: Normal rate and rhythm, normal S1 and S2, no murmurs. Chest Breasts: Normal, no dimpling or skin [...] finger to nose and heel to paez. Psychiatric Judgment and insight: Normal. Orientation to person, place and time: Normal. Recent and remote memory: Intact. Mood and affect: Normal. Constitutional: uncomfortable. General Appearance: Well developed, appears healthy, comfortable, well nourished and well hydrated. Musculoskeletal: antalgic gait observed and limited range of motion . Normal muscle strength/tone. Cardiovascular:. Normal pulses. No edema or varicosities. Skin:. Skin and subcutaneous tissue inspection normal. Skin and subcutaneous tissue palpation normal. Neurologic:. Normal cranial nerves. Normal reflexes. Normal sensation. Psychiatric:. Orientation to person, place, and time normal. Normal mood and affect. Assessment 1. Arm numbness left (782.0) (R20.8) 2. Osteoarthritis (715.90) (M19.90) 3. Left arm pain (729.5) (M79.602) Plan 1. Physical Therapy Referral Outpatient 48 yo male with left arm pain/parathesias: -history of cervical neck disc disease and previous pain/parathesias originating from cervical spin! Request [facility] Authorization for Physical therapy Services eval/treatment [facility] site! Status: Need Information - Financial Authorization Requested for: 28Jan2014 Ordered; For: Arm numbness left, Left arm pain; Ordered By: Pb Su Performed: Order Comments: 48 yo male with left arm pain/parathesias: -history of cervical neck disc disease and previous pain/parathesias originating from cervical spin! Request [facility] Authorization for Physical therapy Services eval/treatment [facility] site! Due: 11Feb2014; Last Updated By: Denisse Ceja; 01/28/2014 8:54:52 AM 2. Begin a limited exercise program. Status: Complete Done: 29Jan2014 Ordered; For: Osteoarthritis; Ordered By: Pb Su 3. Continue with our present treatment plan. Status: Complete Done: 29Jan2014 Ordered; For: Osteoarthritis; Ordered By: Pb Su 4. Dairy foods are not the only way to get calcium in your diet. Status: Complete Done: 29Jan2014 Ordered; For: Osteoarthritis; Ordered By: Pb Su 5. Eat foods that are high in calcium. Status: Complete Done: 29Jan2014 Ordered; For: Osteoarthritis; Ordered By: Pb Su 6. Rest your wrist as much as possible. Status: Complete Done: 29Jan2014 Ordered; For: Osteoarthritis; Ordered By: Pb Su 7. Some eating tips that can help you lose weight. Status: Complete Done: 29Jan2014 Ordered; For: Osteoarthritis; Ordered By: Pb Su 8. Stretch and warm up your muscles during the first 10 minutes , then cool down your muscles for the last 10 minutes of exercise. Status: Complete Done: 29Jan2014 Ordered; For: Osteoarthritis; Ordered By: Pb Su 9. We recommend that you get 400 IU of Vitamin D each day. Status: Complete Done: 29Jan2014 Ordered; For: Osteoarthritis; Ordered By: Pb Su 10. We suggest that you do gentle exercise that does not stress your joints. Status: Complete Done: 29Jan2014 Ordered; For: Osteoarthritis; Ordered By: Pb Su 11. We would like you to start exercises to build muscle strength and keep your joints loose. Status: Complete Done: 29Jan2014 Ordered; For: Osteoarthritis; Ordered By: Pb Su 12. Wear shoes that provide good support for your feet. Status: Complete Done: 29Jan2014 Ordered; For: Osteoarthritis; Ordered By: Pb Su Discussion/Summary Summary: Summary: 48 yo male with left arm parathesias: suggestive pathology neck. Request Physical Therapy services! See Care Guide! Signatures Electronically signed by : Pb Su M.D.; Jan 29 2014 7:55PM ACCOUNTS PAYABLE COORDINATOR (Author) documented in this encounter Plan of Treatment Not on file documented as of this encounter Visit Diagnoses Not on filedocumented in this encounter Care Teams Prevocational/Rehabilitation Counselor Relationship Specialty Start Date End Date Pb Su MD [address] [place], [place] [address] PCP - General 04/26/16 Pb Su MD [address] [place], [place] [id number] PCP - General 05/19/15 04/25/16 Pb Su MD [address] [place] [address] PCP - General 12/07/14 05/18/15 Pb Su MD [address] [place], [place] [address] PCP - General 12/05/14 12/06/14 Pb Su MD [address] [place], [place] [address] PCP - General 03/23/14 12/04/14 Pb Su MD [address] [place], [place] [address] PCP - General 03/21/14 03/22/14 Pb Su MD [address] [place], [place] [address] PCP - General 03/16/14 03/20/14 Pb Su MD [address] [place], [place] [address] PCP - General 03/14/14 03/15/14 Pb Su MD [address] [place], [place] [address] PCP - General 03/09/14 03/13/14 Pb Su MD [address] [place] [address] PCP - General 03/02/14 03/08/14 Pb Su MD [address] [place] [address] PCP - General 02/28/14 03/01/14 Pb Su MD [address] [place], [place] [address] PCP - General 02/25/14 02/27/14 Pb Su MD [address] [place], [place] [address] PCP - General 02/23/14 02/24/14 Pb Su MD [address] [place], [place] [address] PCP - General 02/17/14 02/22/14 Pb Su MD [address] [place] [address] PCP - General 11/02/13 02/16/14 documented as of this encounter
--- OUTSIDE RECORDS SUMMARY | 2024-11-14 10:17 | XMS_ITS | Encounter Summary ---
Author Organization [facility] Address [address] [place] [address]. [place], [place] [address] [place] [address] Care Team Providers Care Patient Case Coordinator Name Role Phone Pb Su MD Primary Care Provider [phone] Pb Su MD Primary Care Provider [phone] Pb Su MD Primary Care Provider [phone] Pb Su MD Primary Care Provider Pb Su MD Primary Care Provider Encounter Details Date Type Department Care Team (Latest Contact Info) Description 04/01/[address] [facility] Social History Tobacco Use [...] on filedocumented in this encounter Care Teams Patient Case Coordinator Relationship Specialty Start Date End Date Pb Su MD [address] [place], [place] [id number] PCP - General 04/26/16 Pb Su MD [address] [place], [place] [id number] PCP - General 05/19/15 04/25/16 Pb Su MD [address] [place], [place] [id number] PCP - General 12/07/14 05/18/15 Pb Su MD [address] [place], [place] [id number] PCP - General 12/05/14 12/06/14 Pb Su MD [address] [place], [place] [id number] PCP - General 03/23/14 12/04/14 documented as of this encounter
--- OUTSIDE RECORDS SUMMARY | 2024-11-14 10:17 | XMS_ITS | Encounter Summary ---
Author Organization [facility] Address [address] [place] [address]. [place], [place] [address] [place] [address] Care Team Providers Care Software Support Engineer Name Role Phone Pb Su MD [...] Care Team (Late st Contact Info) Description 01/17/2014 Abstract [facility] Family Medicine - Aram [address] [place] [phone] Pb Su MD [address] [place] [address] Social History Tobacco Use Types Packs/Day Years Used Date Smoking Tobacco: Never Assessed Sex and Gender Information Value Date Recorded Sex Assigned at Not on file Legal Sex Male 7:22 PM CDT Gender Identity Not on file Sexual Orientation Not on file documented as of this encounter Last Filed Vital Signs Vital Sign Reading Time Taken Comments Blood Pressure - - Pulse 80 01/17/2014 2:09 PM CONCRETE BATCHER Temperature - - Respiratory Rate - - Oxygen Saturation - - Inhaled Oxygen Concentration - - Weight 100.2 kg (221 lb) 01/17/2014 2:09 PM CONCRETE BATCHER Height 182.9 cm (6') 01/17/2014 2:09 PM CONCRETE BATCHER Body Mass Index 29.97 01/17/2014 2:09 PM CONCRETE BATCHER documented in this encounter Progress Notes * Pb Su MD - 01/17/2014 2:15 PM CST Chief Complaint Patient here for left shoulder and arm pain. History of Present Illness 48 yo male with left sided shoulder and chest wall pain, notes pain and stiffness! Admits to recentchange in his workout schedule and as result experiencing pain/stiffness leftt upper back, left atmentshoulder! We performed detailed history, examination, developed differential diagnosis, evaluation and treatment plan! The patient is being seen for worsening symptoms of shoulder pain. Symptoms: shoulder pain, shoulder stiffness and decreased range of motion at the shoulder, but no localized swelling, no localized redness, no localized warmth, no localized numbness and no localized weakness. The patient is currently experiencing symptoms. The patient is being seen for a routine clinic follow-up of chronic low back pain. The last clinic visit was 6 months month(s) ago. No changes in management were made at the last visit. Symptoms: back pain, back stiffness and decreased range of motion of the back, but no leg pain, no leg numbness, no foot numbness and no foot weakness. Symptoms are located in the mid back bilaterally. There is noradiation. Onset was sudden. The symptoms occur intermittently. The episodes occur monthly. The patient describes symptoms as moderate in severity and unchanged. Exacerbating factors: weight bearing,back motion, lifting and straining. Relieving factors: rest, heat and physical therapy. Current treatment includes activity modification and heat. By report, there is fair compliance with treatment. Initial diagnosis of chronic low back pain was 1 year(s) ago. Since diagnosis the disease has been unchanged. Recently, the disease has been unchanged. He was previously evaluated in this clinic. Pastevaluation has included lumbar spine x-ray. Past treatment has included activity modification, heatand physical therapy. The patient states his osteoarthritis has been [...] yet at goal. Review of Systems Constitutional: fatigue. Head and Face: negative. Eyes: negative. ENT: negative. Cardiovascular: palpitations. Respiratory: negative. Gastrointestinal: negative. Genitourinary: negative. Musculoskeletal: back pain and joint stiffness. Integumentary and Breasts: negative. Neurological: negative. Psychiatric: negative. Endocrine: negative. Hematologic and Lymphatic: negative. Active Problems 1. Atrial fibrillation (427.31) (I48.91) 2. Bilateral hand pain (729.5) (M79.641,M79.642) 3. Fatigue (780.79) (R53.83) 4. Hyperlipidemia (272.4) (E78.5) 5. Knee pain, right (719.46) (M25.561) 6. Knee pain, unspecified laterality (719.46) (M25.569) 7. Left arm pain (729.5) (M79.602) 8. Lower back pain (724.2) (M54.5) 9. Osteoarthritis (715.90) (M19.90) 10. Pain in joint of left shoulder (719.41) (M25.512) 11. Premature ventricular contractions (427.69) (I49.3) 12. Routine history and physical examination of adult (V70.0) (Z00.00) 13. Screening for prostate cancer (V76.44) (Z12.5) 14. Vitamin d deficiency (268.9) (E55.9) Past Medical [...] 1 TABLET BY MOUTH AT BEDTIME; Therapy: 59Gli4637 to (Evaluate:13Zau1408); Last Rx:[id number] Ordered 2. Claritin 10 MG Oral Tablet; Therapy: (Recorded:25Prz3799) to Recorded Allergies 1. Acetaminophen-Codeine #3 TABS Vitals Recorded by : Marcial Denisse at 99Beb0057 02:09PM Temperature 98.1 F, Oral Heart Rate 80, R Radial Pulse Quality Normal, R Radial Respiration 14 Respiration Quality Normal Height 6 ft Weight 221 lb BMI Calculated 29.97 BSA Calculated 2.22 Pain Scale 7 Comment left shoulder and arm pain Physical Exam Constitutional General appearance: No acute distress, well appearing and well nourished. Constitutional: uncomfortable. General Appearance: Well developed, appears [...] and time normal. Normal mood and affect. Constitutional General appearance: No acute distress, well [...] Inspection/palpation of joints, bones, and muscles: Abnormal. Range of motion: Normal. Stability: Normal. Muscle strength/tone: Normal. Skin Skin and subcutaneous tissue: Normal without rashes or lesions. Neurologic Cranial nerves: Cranial nerves 2-12 intact. Cortical function: Normal mental status. Reflexes: 2+ and symmetric. Coordination: Normal finger to nose and heel to paez. Assessment 1. Pain in joint of left shoulder (719.41) (M25.512) 2. Left arm pain (729.5) (M79.602) 3. Muscle spasm (728.85) (M62.49) 4. Osteoarthritis (715.90) (M19.90) Plan 1. Start: TraMADol HCl - 50 MG Oral Tablet; TAKE 1 TABLET 3 TIMES DAILY Rx By: Pb Su; Dispense: 10 Days ; #:30 Tablet; Refill: 1; For: Left arm pain, Pain in joint of left shoulder; GAYLE = N; Print Rx 2. Start: Cyclobenzaprine HCl - 10 MG Oral Tablet; TAKE 1 TABLET 3 TIMES DAILY NEEDED Rx By: Pb Su; Dispense: 10 Days ; #:30 Tablet; Refill: 3; For: Muscle spasm; GAYLE = N; Sent To: [facility] 3. Dairy foods are not the only way to get calcium in your diet. Status: Complete Done: 26Eud3444 03:25PM Ordered; For: Osteoarthritis; Ordered By: Pb Su 4. Eat foods that are high in calcium. Status: Complete Done: 12Yev6597 03:25PM Ordered; For: Osteoarthritis; Ordered By: Pb Su 5. Rest your wrist as much as possible. Status: Complete Done: 21Avo7950 03:25PM Ordered; For: Osteoarthritis; Ordered By: Pb Su 6. Some eating tips that can help you lose weight. Status: Complete Done: 60Usv2602 03:25PM Ordered; For: Osteoarthritis; Ordered By: Pb Su 7. Stretch and warm up your muscles during the first 10 minutes , then cool down your muscles for the last 10 minutes of exercise. Status: Complete Done: 25Ysd9493 03:25PM Ordered; For: Osteoarthritis; Ordered By: Pb Su 8. There are many exercise options for seniors. Status: Complete Done: 60Glf1323 03:25PM Ordered; For: Osteoarthritis; Ordered By: Pb Su 9. We recommend that you get 400 IU of Vitamin D each day. Status: Complete Done: 12Dee7965 03:25PM Ordered; For: Osteoarthritis; Ordered By: Pb Su 10. We recommend you perform exercises to strengthen and stretch your muscles Status: Complete Done: 67Cyh4945 03:25PM Ordered; For: Osteoarthritis; Ordered By: Pb Su 11. We suggest that you do gentle exercise that does not stress your joints. Status: Complete Done: 38Pwu9994 03:25PM Ordered; For: Osteoarthritis; Ordered By: Pb Su 12. We would like you to start exercises to build muscle strength and keep your joints loose. Status: Complete Done: 29Fzi2415 03:25PM Ordered; For: Osteoarthritis; Ordered By: Pb Su 13. Wear shoes that provide good support for your feet. Status: Complete Done: 86Eez5630 03:25PM Ordered; For: Osteoarthritis; Ordered By: Pb Su 14. You may slowly resume your normal level of activity once you feel better. Status: Complete Done: 17Mwt0001 03:25PM Ordered; For: Osteoarthritis; Ordered By: Pb Su Signatures Electronically signed by : Pb Su M.D.; Jan 17 2014 3:26PM CONCRETE BATCHER (Author) RETE BATCHER documented in this encounter Plan of Treatment Not on file documented as of this encounter Visit Diagnoses Not on filedocumented in this encounter Care Teams Software Support Engineer Relationship Specialty Start Date End Date Pb Su MD [address] [place], [place] [id number] PCP - General 04/26/16 Pb Su MD [address] [place] [address] PCP - General 05/19/15 04/25/16 Pb Su MD [address] [place] [address] PCP - General 12/07/14 05/18/15 Pb Su MD [address] [place] [address] PCP - General 12/05/14 12/06/14 Pb Su MD [address] [place], [place] [address] PCP - General 03/23/14 12/04/14 Pb Su MD [address] [place], [place] [address] PCP - General 03/21/14 03/22/14 Pb Su MD [address] [place] [address] PCP - General 03/16/14 03/20/14 Pb Su MD [address] [place] [address] PCP - General 03/14/14 03/15/14 Pb Su MD [address] [place] [address] PCP - General 03/09/14 03/13/14 Pb Su MD [address] [place] [address] PCP - General 03/02/14 03/08/14 Pb Su MD [address] [place] [address] PCP - General 02/28/14 03/01/14 Pb Su MD [address] [place] [address] PCP - General 02/25/14 02/27/14 Pb Su MD [address] [place], [place] [address] PCP - General 02/23/14 02/24/14 Pb Su MD [address] [place] [address] PCP - General 02/17/14 02/22/14 Pb Su MD [address] [place], [place] [address] PCP - General 11/02/13 02/16/14 documented as of this encounter
--- OUTSIDE RECORDS SUMMARY | 2024-11-14 10:17 | XMS_ITS | Encounter Summary ---
Author Organization [facility] Address [address] [place] [address]. [place], [place] [address] [place] [address] Care Team Providers Care Lines Tender Name Role Phone Pb Su MD Primary Care Provider [phone] Pb Su MD Primary Care Provider Pb [...] Department Care Team (Latest Contact Info) Description 02/18/2014 Abstract [facility] Social History Tobacco Use Types [...] on filedocumented in this encounter Care Teams Lines Tender Relationship Specialty Start Date End Date Pb Su MD [address] [place], [place] [address] PCP - General 04/26/16 Pb Su MD [address] [place], [place] [address] PCP - General 05/19/15 04/25/16 Pb Su MD [address] [place], [place] [address] PCP - General 12/07/14 05/18/15 Pb Su MD [address] [place], [place] [address] PCP - General 12/05/14 12/06/14 Pb Su MD [address] [place], [place] [address] PCP - General 03/23/14 12/04/14 Pb Su MD [address] [place], [place] [address] PCP - General 03/21/14 03/22/14 Pb Su MD [address] [place] [address] PCP - General 03/16/14 03/20/14 Pb Su MD [address] [place] [address] PCP - General 03/14/14 03/15/14 Pb Su MD [address] [place] [address] PCP - General 03/09/14 03/13/14 Pb Su MD [address] [place] [address] PCP - General 03/02/14 03/08/14 Pb Su MD [address] [place], [place] [address] PCP - General 02/28/14 03/01/14 Pb Su MD [address] [place], [place] [address] PCP - General 02/25/14 02/27/14 Pb Su MD [address] [place], [place] [address] PCP - General 02/23/14 02/24/14 Pb Su MD [address] [place] [address] PCP - General 02/17/14 02/22/14 documented as of this encounter
--- OUTSIDE RECORDS SUMMARY | 2024-11-14 10:17 | XMS_ITS | Encounter Summary ---
Author Organization [facility] Address [address] [place] [address]. [place], [place] [address] [place] [address] Care Team Providers Care Cobol Mainframe Developer Name Role Phone Pb Su MD Primary [...] Care Team (Late st Contact Info) Description 02/03/2014 Abstract [facility] Multispecialty Care - [facility] [address] [place] [address] Seun Mak DO [address] [place] [address] Social History Tobacco Use Types Packs/Day Years Used Date Smoking Tobacco: Never Assessed Sex and Gender Information Value Date Recorded Sex Assigned at Not on file Legal Sex Male 7:22 PM CDT Gender Identity Not on file Sexual Orientation Not on file documented as of this encounter Progress Notes * Seun Mak DO - 02/03/2014 2:10 PM CDT Chief Complaint 1. Knee Pain History of Present Illness PMD: Pb Su M.D. CHIEF COMPLAINT: Swelling, soreness, right knee. HISTORY OF PRESENT ILLNESS: The patient is here today for evaluation of a big lump in the prepatellar bursa. It has been present for a year. His symptoms are worse with contact and kneeling. It is made better with activity modifications. He states that it does not get any smaller and he notes it only increased in size. He has no other extremity complaints. There is no numbness or tingling or radicular complaint. PHYSICAL EXAMINATION: General: This is a healthy-appearing 48-year-old male. There is no evidence for acute trauma or illness. Psychiatric: The patient is alert and oriented times three. He has a pleasant mood and affect. Gait: The patient is ambulatory in the office without any assistive device. Circulation: There is no peripheral edema or acute circulatory compromise to the extremities. Neurologic: There are no focal or lateralizing deficits. Skin: No lacerations or abrasions are noted. Thereis no evidence for superficial or deep infection. Musculoskeletal: Right knee: The patient has a well-circumscribed mass in the prepatellar region inferior to the patella. There is no overall erythema or evidence for infection. He has good knee range of motion. The joint lines are without tenderness. IMPRESSION: 1.Prepatellar bursitis, right knee. 2.History of chondromalacia patellae, right knee, with fissure. RECOMMENDATIONS: Treatment options were discussed. Aspiration of 4 cc of clear fluid was performed followed by injection of 1 cc of Celestone. A sterile Band- Aid is applied. We applied a pressure bandage to the region. The patient has been instructed to loosen this approximately 30 to 60 minutes. He will continue to have pressure during the next few weeks. He will avoid any excessive activities. He will apply ice at nighttime. He understands, if this recurs, that repeat aspirationand/or surgical excision are possibilities. I would be happy to re-evaluate this very pleasant gentleman in the future should the need arise. EVON/ROSAURA/marian Job [id number] Active Problems 1. Arm numbness left (782.0) [...] 1 TABLET BY MOUTH AT BEDTIME; Therapy: 78Mlc0826 to (Evaluate:24Jun2014); Last Rx:[id number] Ordered 2. Claritin 10 MG Oral Tablet; Therapy: (Recorded:38Adh4305) to Recorded 3. Cyclobenzaprine HCl - 10 MG Oral Tablet; TAKE 1 TABLET 3 TIMES DAILY NEEDED; Therapy: 34Oci5790 to (Evaluate:26Feb2014) Requested for: 45Tyh3493; Last Rx:[id number] Ordered 4. TraMADol HCl - 50 MG Oral Tablet; TAKE 1 TABLET 3 TIMES DAILY; Therapy: 34Hab8624 to (Evaluate:06Feb2014); Last Rx:[id number] Ordered Allergies 1. Acetaminophen-Codeine #3 TABS Signatures Electronically signed by : Seun Mak D.O.; Feb 03 2014 4:03PM TOWER FOREMAN (Author) Electronically signed by : Seun Mak D.O.; Feb 16 2014 8:23AM TOWER FOREMAN (Author) documented in this encounter Plan of Treatment Not on file documented as of this encounter Visit Diagnoses Not on filedocumented in this encounter Care Teams Cobol Mainframe Developer Relationship Specialty Start Date End Date Pb Su MD [address] [place], [place] [id number] PCP - General 04/26/16 Pb Su MD [address] [place], [place] [id number] PCP - General 05/19/15 04/25/16 Pb Su MD [address] [place] [address] PCP - General 12/07/14 05/18/15 Pb Su MD [address] [place] [address] PCP - General 12/05/14 12/06/14 Pb Su MD [address] [place] [address] PCP - General 03/23/14 12/04/14 Pb Su MD [address] [place] [address] PCP - General 03/21/14 03/22/14 Pb Su MD [address] [place] [address] PCP - General 03/16/14 03/20/14 Pb Su MD [address] [place] [address] PCP - General 03/14/14 03/15/14 Pb Su MD [address] [place], [place] [address] PCP - General 03/09/14 03/13/14 Pb Su MD [address] [place] [address] PCP - General 03/02/14 03/08/14 Pb Su MD [address] [place] [address] PCP - General 02/28/14 03/01/14 Pb Su MD [address] [place], [place] [address] PCP - General 02/25/14 02/27/14 Pb Su MD [address] [place], [place] [address] PCP - General 02/23/14 02/24/14 Pb Su MD [address] [place] [address] PCP - General 02/17/14 02/22/14 Pb Su MD [address] [place], [place] [address] PCP - General 11/02/13 02/16/14 documented as of this encounter
--- OUTSIDE RECORDS SUMMARY | 2024-11-14 10:17 | XMS_ITS | Encounter Summary ---
Author Organization [facility] Address [address] [place] [address]. [place] [address] [place] [address] Care Team Providers Care Bullet Maker Name Role Phone Pb Su MD Primary Care Provider Pb Su MD Primary Care Provider Pb Su MD Primary Care Provider Pb Su MD Primary Care Provider [phone] Encounter Details Date Type Department Care Team (Late st Contact Info) Description 12/05/2014 Abstract [facility] [address] [place] [address] Pb Su MD [address] [place], [place] [id number] Social History Tobacco Use Types Packs/Day Years Used Date Smoking Tobacco: Never Assessed Sex and Gender Information Value Date Recorded Sex Assigned at Not on file Legal Sex Male 7:22 PM CDT Gender Identity Not on file Sexual Orientation Not on file documented as of this encounter Plan of Treatment Not on file documented as of this encounter Visit Diagnoses Diagnosis Bronchitis Bronchitis, not specified as acute or chronic documented in this encounter Care Teams Bullet Maker Relationship Specialty Start Date End Date Pb Su MD [address] [place], [place] [id number] PCP - General 04/26/16 Pb Su MD [address] [place], [place] [id number] PCP - General 05/19/15 04/25/16 Pb Su MD [address] [place], [place] [id number] PCP - General 12/07/14 05/18/15 Pb Su MD [address] [place], [place] [address] PCP - General 12/05/14 12/06/14 documented as of this encounter
--- OUTSIDE RECORDS SUMMARY | 2024-11-14 10:17 | XMS_ITS | Encounter Summary ---
Author Organization [facility] Address [address] [place] [address]. [place] [address] [place] [address] Care Team Providers Care Dance Instructor Name Role Phone Pb Su MD Primary Care Provider Pb Su MD Primary Care Provider Pb Su MD Primary Care Provider [phone] Pb Su MD Primary Care Provider [phone] Encounter Details Date Type Department Care Team (Late st Contact Info) Description 12/05/2014 Abstract [facility] Family Medicine - [place] [address], [address] [place] [phone] Pb Su MD [address] [place], [place] [address] Social History Tobacco Use Types Packs/Day Years Used Date Smoking Tobacco: Never Assessed Sex and Gender Information Value Date Recorded Sex Assigned at Not on file Legal Sex Male 7:22 PM CDT Gender Identity Not on file Sexual Orientation Not on file documented as of this encounter Last Filed Vital Signs Vital Sign Reading Time Taken Comments Blood Pressure 130/78 12/05/2014 11:15 AM RESIST COATER DEVELOPER Pulse 64 12/05/2014 11:15 AM RESIST COATER DEVELOPER Temperature - - Respiratory Rate - - Oxygen Saturation - - Inhaled Oxygen Concentration - - Weight 97.5 kg (215 lb) 12/05/2014 11:15 AM RESIST COATER DEVELOPER Height 182.9 cm (6') 12/05/2014 11:15 AM RESIST COATER DEVELOPER Body Mass Index 29.16 12/05/2014 11:15 AM RESIST COATER DEVELOPER documented in this encounter Progress Notes * Pb Su MD - 12/05/2014 11:15 AM CST Reason For Visit Reason For Visit: Chronic Recheck Visit Chief Complaint co fatigue Cough, fatigue, general ill feeling, joint pain. 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 He is an avid exercise enthusiast but has had frequent appointments for complaints of fatigue and osteoarthritis which could be attributable tothe fact that he works out very strenuously particularly with weightlifting. At this particular time, he had multiple complaints to include problem (#1) cough and concern that he had bronchitis; (#2)fatigue/general ill feeling; (#3) arthralgias. The patient is being seen for an [...] are noted. Current treatment includes Increasing fluid, [id number] cough and cold remedies. By report, there is poor symptom control. The patient is being seen for worsening [...] no constipation, no change in weight, no heatintolerance, no cold intolerance, no polyuria and no polydipsia. The patient is not currently being treated for this problem. By report, there is poor symptom control. The patient is being seen for worsening symptoms of a general ill feeling. Symptoms: malaise, fatigue, arthralgias, joint stiffness, difficulty sleeping, anxiety and depression, but no chills, no night sweats, no myalgias, no muscle weakness, no joint swelling, no weight loss, no weight gain and no suicidal thoughts No fever. The patient is currently experiencing symptoms. Onset was gradual. Onset followed no recent illness. The symptoms occur frequently. Currently, the symptoms occur daily and to the past few weeks. He describes this as mild to moderate and unchanged to worsening. Exacerbating factors: stress, exertion and inadequate sleep. Relieving factors: rest. Associated symptoms: headache and cough, but no visual disturbance, no vertigo, no lightheadedness, no chest pain, no shortness of breath, no edema, no abdominal pain, no anorexia, no nausea, no vomiting, no diarrhea, no constipation, no melena, no hematochezia, no dysuria, no polyuria, no polydipsia and no decreased libido. Current treatment includes vitamin supplements. By report, there is poor symptom control. Pertinent medical history: anxiety, depression and osteoarthritis, but no diabetes, no thyroid disorder, no migraine headaches and no cardiovascular disease. Family history: depression and osteoarthritis. Pertinent social history: No financial difficulties, but no relationship changes and no employment changes. The patient states his osteoarthritis has been [...] for osterarthritis management:. Review of Systems Constitutional: feeling poorly, feeling tired and headache, but no fever, no recent weight gain, nochills and no recent weight loss. The patient presents with complaints of mild hearing loss. Cardiovascular: no chest pain and no palpitations. The patient presents with complaints of cough (productive of some yellow-green sputum). Gastrointestinal: Normal. Genitourinary: Normal. Musculoskeletal: joint pain and joint stiffness. Neurological: dizziness (Headaches). Psychiatric: anxiety. depression Constitutional: fatigue. Head and Face: negative. Eyes: [...] (719.46) (M25.561) 7. Knee pain, unspecified laterality 8. Left arm pain (729.5) (M79.602) 9. Lower back pain (724.2) (M54.5) 10. Muscle spasm (728.85) (M62.838) 11. Osteoarthritis (715.90) (M19.90) 12. Pain in [...] 1. Claritin 10 MG Oral Tablet; Therapy: (Recorded:[id number]) to Recorded Dispense: 0 Days ; #: Sufficient TABS; Refill: 0; GAYLE = N; Record; Last Updated By: Denisse Ceja; 06/29/2013 7:41:31 AM Allergies 1. Acetaminophen-Codeine #3 TABS Recorded By: Charu Snowden; 07/31/2012 8:27:16 AM Vitals Vital Signs [Data Includes: Current Encounter] Recorded by : Daphne Harvey at 05Dec2014 11:15AM Temperature 98.2 F Heart Rate 64 Systolic 130 Diastolic 78 Height 6 ft Weight 215 lb BMI Calculated 29.16 BSA Calculated 2.2 Physical Exam Constitutional General appearance: Abnormal. Well-developed, [...] and time: Normal. Mood and affect: Normal. Genitourinary: The penis was normal. Examination of the penis showed a normal meatus. The scrotum was normal. The testes were normal. Normal sphincter tone, no rectal tenderness, no rectal masses, nofistula seen, no anal fissure, no residual hemorrhoidal skin tags seen, no internal hemorrhoids andno external hemorrhoids. The prostate was normal. Results/Data 1 WEEKS Results Vitamin D 25 - Hydroxy 07Dec2014 07:30AM Pb Su Test Name Result Flag Reference Vitamin D 25-Hydroxy 30 NG/ML 30-100 SUPPLEMENTING WITH VITAMIN D2 MAY RESULT IN FALSELY LOW RESULTS, CLINICAL CORRELATION NEEDED. INTERPRETATION DEFICIENT <20 INSUFFICIENT 20-30 SUFFICIENT 30-100 POTENTIAL INTOXICATION >[address]ING PERFORMED AT [facility], A MEMBER OF THE [facility]. Chest x-ray - negative. Assessment 1. Fatigue (780.79) (R53.83) 2. Cough (786.2) (R05) 3. Hyperlipidemia (272.4) (E78.5) 4. Osteoarthritis (715.90) (M19.90) 5. Obstructive sleep apnea (327.23) (G47.33) 1. Cough, respiratory illness/bronchitis. 2. Fatigue, general ill feeling possibly secondary to viral illness. 3. Osteoarthritis. 4. History of obstructive sleep apnea. Plan Cough 1. Start: Start: Start: PredniSONE 20 MG Oral Tablet; TAKE 2 TABLETS DAILY Rx By: Pb Su; Dispense: 5 Days ; #:10 Tablet; Refill: 1; For: Cough; GAYLE = N; Verified Transmission to [facility]; Last Updated By: Syncapse; 12/05/2014 12:38:05 PM Fatigue 2. Free / Total Testosterone Status: Active Requested for: 05Dec2014 Perform: [facility] Due: [id number]; Ordered; For: Fatigue; Ordered By: Pb Su 3. Vitamin D 25 - Hydroxy Status: Resulted - Requires Verification Done: 07Dec2014 07:30AM Performed: [facility] Due: [id number]; Ordered; For: Fatigue; Ordered By: Pb Su CBC WO Diff ( Hemogram ) Status: Resulted - Requires Verification Done: 24Nov2023 12:00AM Due: [id number]; Ordered; For: Atrial fibrillation, Fatigue; Ordered By: Pb Su Compr Metabolic Prof ( CMP ) Status: Resulted - Requires Verification Done: 24Nov2023 12:00AM Due: [id number]; Ordered; For: Fatigue; Ordered By: Pb Su Lipid Profile Status: Resulted - Requires Verification Done: 24Nov2023 12:00AM Due: [id number]; Ordered; For: Fatigue; Ordered By: Pb Su TSH W Reflex Free T4 Status: Resulted - Requires Verification Done: 24Nov2023 12:00AM Due: [id number]; Ordered; For: Fatigue; Ordered By: Pb Su Prostate Specif Ag ( PSA ) Scrn Status: Resulted - Requires Verification Done: 24Nov2023 12:00AM Due: [id number]; Ordered; For: Fatigue; Ordered By: Pb Su XR CHEST 2 VIEW ( Routine ) Status: Resulted - Requires Verification Done: 24Nov2023 12:00AM Due: [id number]; Ordered; For: Cough, Fatigue; Ordered By: Pb Su 1. Chest x-ray. 2. Fasting laboratory studies, sleep study consult. Discussion/Summary A 49-year-old male, well-known to Dr. Su with complaints of cough, chest x-ray negative for pneumonitis suspected viral bronchitis; (#2) history of fatigue, lassitude but with a regular heart rate in light of the fact that in the past he has had an episode of atrial fibrillation; (#3) osteoarthritis, client does experience arthralgias but is also a work out enthusiast specifically a weightlifter. We discussed all these factors as contributing to his overall fatigue and malaise. Client was somewhat cynical regarding the benefit of another sleep study but did right away did consent after discussion that he would undergo another sleep study consult. In addition, we will obtain laboratory studies and have close clinical followup with client. Client voiced understand and agreement. Signatures Electronically signed by : Pb Su M.D.; Dec 20 2014 1:58PM RESIST COATER DEVELOPER (Author) documented in this encounter Plan of Treatment Not on file documented as of this encounter Procedures Procedure Name Priority Date/Time Associated Diagnosis Comments TSH W/REFLEX Routine 12/07/2014 7:30 AM RESIST COATER DEVELOPER TESTOSTERONE, FREE & TOTAL Routine 12/07/2014 7:30 AM RESIST COATER DEVELOPER PROSTATE SPECIFIC ANTIGEN,TOTAL Routine 12/07/2014 7:30 AM RESIST COATER DEVELOPER COMPREHENSIVE METABOLIC PANEL Routine 12/07/2014 7:30 AM RESIST COATER DEVELOPER LIPID PANEL Routine 12/07/2014 7:30 AM RESIST COATER DEVELOPER CBC, AUTO, NO DIFF Routine 12/07/2014 7: 30 AM RESIST COATER DEVELOPER VITAMIN D, 25 OH Routine 12/07/2014 7:30 AM RESIST COATER DEVELOPER XR CHEST 2V+NIPPLE MARKER Routine 12/05/2014 12:38 PM RESIST COATER DEVELOPER documented in this encounter Results * PROSTATE SPECIFIC ANTIGEN,TOTAL (12/07/2014 7:30 AM RESIST COATER DEVELOPER) PSA 0.860 <4.0 ng/mL [facility] TO EPIC CONVERSION Comment: Result Comment: TEST WAS PERFORMED USING THE YADI METHOD. ??PSA VALUES OBTAINED WITH OTHER ASSAY METHODS OR KITS CANNOT BE USED INTERCHANGEABLY WITH RESULTS OBTAINED BY THE YADI METHOD. 12/07/2014 7:30 AM RESIST COATER DEVELOPER 12/07/2014 7:30 AM RESIST COATER DEVELOPER Narrative [facility] TO EPIC CONVERSION - 12/07/2014 4:30 PM RESIST COATER DEVELOPER Result Communication: No patient communication needed at this time us Pb Su MD LABORATORY Final Resul t [facility] TO EPIC CONVERSION * TSH W/REFLEX (SNS) (12/07/2014 7:30 AM RESIST COATER DEVELOPER) TSH 0.76 0.27 - 4.20 mIU/mL [facility] TO EPIC CONVERSION Comment:Result Comment: FREE T4 NOT INDICATED 12/07/2014 7:30 AM RESIST COATER DEVELOPER 12/07/2014 7:30 AM RESIST COATER DEVELOPER Narrative [facility] TO EPIC CONVERSION - 12/07/2014 4:30 PM RESIST COATER DEVELOPER Result Communication: No patient communication needed at this time Pb Su MD LABORATORY Final Resul t Performing Organization Address [facility] de Phone Number [facility] TO EPIC CONVERSION * VITAMIN D, 25 OH (12/07/2014 7:30 AM RESIST COATER DEVELOPER) VITAMIN D 25 HYDROXY S/P/B 30 30 - 100 NG/ML [facility] TO EPIC CONVERSION Comment: Result Comment: ?? SUPPLEMENTING WITH VITAMIN D2 MAY RESULT IN FALSELY LOW RESULTS, CLINICAL CORRELATION NEEDED. ? INTERPRETATION ? DEFICIENT ??<20 ?INSUFFICIENT 20-30 ?SUFFICIENT 30-100 POTENTIAL INTOXICATION ??>100 ? TESTING PERFORMED AT [facility], A MEMBER OF [facility]. 12/07/2014 7:30 AM RESIST COATER DEVELOPER 12/07/2014 7:30 AM RESIST COATER DEVELOPER Narrative [facility] TO EPIC CONVERSION - 12/08/2014 6:37 PM RESIST COATER DEVELOPER Result Communication: No patient communication needed at this time Pb Su MD LABORATORY Final Resul t Performing Organization Address [facility] de Phone Number [facility] TO EPIC CONVERSION * TESTOSTERONE, FREE & TOTAL (12/07/2014 7:30 AM RESIST COATER DEVELOPER) TESTOSTERONE TOTAL 331 [facility] TO EPIC CONVERSION Comment: Result Comment: Reference range: 250 to 1100 Unit: ng/dL For more information on this test, go to http://education.[facility]/faq/ TotalTestosteroneLCMSMS TESTOSTERONE FREE 71.5 ME [facility] TO EPIC CONVERSION Comment: Result Comment: Reference range: 35.0 to 155.0 Unit: pg/mL Test Performed by [facility], [address] [place], [place] Pb Garcia M.D., Ph.D., Director of Laboratories , [place] [id number] 12/07/2014 7:30 AM RESIST COATER DEVELOPER 12/07/2014 7:30 AM RESIST COATER DEVELOPER Narrative [facility] TO EPIC CONVERSION - 12/11/2014 12:03 PM RESIST COATER DEVELOPER Result Communication: No patient communication needed at this time us Pb Su MD LABORATORY Final Resul t [facility] TO EPIC CONVERSION * (ABNORMAL) LIPID PANEL (12/07/2014 7:30 AM RESIST COATER DEVELOPER) CHOLESTEROL 255(H) <200 mg/dL [facility] TO [facility]IC CONVERSION TRIGLYCERIDES 149 <150 mg/dL [facility] TO [facility] CONVERSION HDL 48(L) >59 mg/dL [facility] TO [facility] CONVERSION LDL (CALCULATED) 177(H) <100 mg/dL [facility] TO [facility]IC CONVERSION NON HDL CHOLESTEROL 207(H) <130 mg/dL [facility] TO [facility]IC CONVERSION Comment: Result Comment: NOTE: WHEN THE TRIGLYCERIDES ARE >200 mg/dL, NON HDL C IS A SECONDARY TARGET OF THERAPY, WITH A GOAL 30 mg/dL HIGHER THAN THE IDENTIFIED LDL C GOAL. CHOL/HDL RATIO 5.3(H) 0.0 - 4.5 [facility] TO [facility]IC CONVERSION VLDL CHOLESTEROL (LMP) 30 5 - 55 mg/dL [facility] TO EPIC [...] ? >=160 ?>=130 [facility] TO EPIC CONVERSION 12/07/2014 7:30 AM RESIST COATER DEVELOPER 12/07/2014 7:30 AM RESIST COATER DEVELOPER Narrative [facility] TO EPIC CONVERSION - 12/07/2014 4:31 PM RESIST COATER DEVELOPER Result Communication: No patient communication needed at this time us Pb Su MD LABORATORY Final Resul t [facility] TO EPIC CONVERSION * COMPREHENSIVE METABOLIC PANEL (12/07/2014 7:30 AM RESIST COATER DEVELOPER) SODIUM S/P/B 139 136 - 145 mmol/L [facility] TO EPIC CONVERSION POTASSIUM S/P/B 4.3 3.5 - 5.1 mmol/L [facility] TO EPIC CONVERSION CHLORIDE S/P/B 100 98 - 107 mmol/L [facility] TO EPIC CONVERSION CO2 28 22 - 29 mmol/L [facility] TO EPIC CONVERSION ANION GAP 15 8 - 20 [facility] T O EPIC CONVERSION BUN 17 8 - 23 mg/dL [facility] TO EPIC CONVERSION CREATININE S/P/B 0.90 0.70 - 1.20 mg/dL [facility] TO EPIC CONVERSION GFR ESTIMATE >60 >60 mL/min/1 .73m'2 [facility] TO EPIC CONVERSION EGFR AFR. AMER. >60 NOTE: eGFR is not calculated for patients <18 years of age. This is an estimated GFR (CKD EPI) and should not be used for calculating drug doses. >60 mL/min/1 .73m'2 [facility] TO EPIC CONVERSION GLUCOSE 98 70 - 99 mg/dL [facility] TO [facility]IC CONVERSION CALCIUM S/P/B 9.8 8.6 - 10.2 mg/dL [facility] TO EPIC CONVERSION BILIRUBIN TOTAL S/P/B 0.4 0.2 - 1.2 mg/dL [facility] TO EPIC CONVERSION AST 15 0 - 40 IU/L [facility] TO EPIC CONVERSION ALT 19 0 - 41 IU/L [facility] TO EPIC CONVERSION ALKALINE PHOSPHATASE S/P/B 61 40 - 129 IU/L [facility] TO EPIC CONVERSION TOTAL PROTEIN S/P/B 6.7 6.4 - 8.3 g/dL [facility] TO EPIC CONVERSION ALBUMIN S/P/B 4.4 3.5 - 5.2 g/dL [facility] TO EPIC CONVERSION GLOBULIN 2.3 2.3 - 3.6 g/dL [facility] TO EPIC CONVERSION A/G RATIO 1.9 1.0 - 2.0 [facility] TO EPIC CONVERSION 12/07/2014 7:30 AM RESIST COATER DEVELOPER 12/07/2014 7:30 AM RESIST COATER DEVELOPER Narrative [facility] TO EPIC CONVERSION - 12/07/2014 4:31 PM RESIST COATER DEVELOPER Result Communication: No patient communication needed at this time us Pb Su MD LABORATORY Final Resul t [facility] TO EPIC CONVERSION * (ABNORMAL) CBC, AUTO, NO DIFF (12/07/2014 7:30 AM RESIST COATER DEVELOPER) WBC 12.1(H) 4.8 - 10.8 X10'3/uL [facility] TO EPIC CONVERSION RBC 4.72 4.70 - 6.10 X10'6/uL [facility] TO EPIC CONVERSION HGB 13.8(L) 14.0 - 18.0 g/dL [facility] TO EPIC CONVERSION HCT 40.7(L) 43.0 - 54.0 % [facility] TO EPIC CONVERSION MCV 86.2 80.0 - 94.0 fL [facility] TO EPIC CONVERSION MCH 29.2 27.0 - 31.0 pg [facility] TO EPIC CONVERSION MCHC 33.9 32.0 - 36.0 g/dL [facility] TO EPIC CONVERSION RDW 12.3 11.5 - 14.5 % [facility] TO EPIC CONVERSION PLT 291 130 - 400 X10'3/uL [facility] TO EPIC CONVERSION GLUCOSE 11.5 9.3 - 12.2 fL [facility] TO EPIC CONVERSION 12/07/2014 7:30 AM RESIST COATER DEVELOPER 12/07/2014 7:30 AM RESIST COATER DEVELOPER Narrative [facility] TO EPIC CONVERSION - 12/07/2014 3:14 PM RESIST COATER DEVELOPER Result Communication: No patient communication needed at this time Pb Su MD LABORATORY Final Resul t [facility] TO EPIC CONVERSION * XR CHEST 2V+NIPPLE MARKER (12/05/2014 12:38 PM RESIST COATER DEVELOPER) Anatomical Region Laterality Modality Chest Radiographic Clary ging 12/05/2014 12:3 8 PM RESIST COATER DEVELOPER 12/05/2014 12:38 PM RESIST COATER DEVELOPER Narrative 12/06/2014 12:38 PM RESIST COATER DEVELOPER AVA CEDILLO ORDERING MD: PB SU MD ?? ACCT: [id number] ?? ADMIT/SERVICE DATE: 12/05/14 DISCHARGE DATE: ?? : 1965 PT TYPE: REG CLI ?? SEX: M ORD SITE: [facility] [place] [facility] ? STUDY DATE REPORT # PROCEDURE CODE PROCEDURE ?? 12/05/14 [id number] CXR2V XR CHEST 2 VIEW ? EXTORDERID ? [id number] ? ACCESSION NUMBER ?? [id number] ?CHART DOCUMENT ? IMPRESSION: ? MILD BRONCHITIS AND POSSIBLE MINIMAL EFFUSIONS. ? HISTORY: ??COUGH. ? CHEST X-RAY ? TECHNIQUE: ??TWO VIEWS. ? FINDINGS: ??MINIMAL PLEURAL EFFUSION IS SEEN. ??PERIBRONCHIAL CUFFING AND ?? PERIHILAR INFILTRATES ARE SUSPICIOUS FOR BRONCHITIS. ??NO LOBAR PNEUMONIA IS ? PRESENT. ? CALCIFIED NODULE IN THE RIGHT LUNG IS CONSISTENT WITH GRANULOMATOUS CHANGE. ? MILD SPURRING IN THE THORACIC SPINE IS SEEN. ? ELECTRONICALLY SIGNED BY: ?? ROLANDA LANCASTER M.D. 12/06/2014 12:36 P ?? ROLANDA LANCASTER M.D. ? D: ??12/05/2014 12:38 P ??#[id number] ?? T: ??12/05/2014 01:22 P/MA ? CC: ?PB SU M.D. ? Procedure Note Pb Su MD - 09/16/2018 AVA CEDILLO JR, MD: PB SU MD ACCT: [id number] ADMIT/SERVICE DATE: 12/05/14 DISCHARGE DATE: : 1965 PT TYPE: REG CLI SEX: M ORD SITE: [facility] OUTPATNT IMAGING STUDY DATE REPORT # PROCEDURE CODE PROCEDURE 12/05/14 [id number] CXR2V XR CHEST 2 VIEW EXTORDERID [id number] ACCESSION NUMBER [id number] CHART DOCUMENT IMPRESSION: MILD BRONCHITIS AND POSSIBLE MINIMAL EFFUSIONS. HISTORY: COUGH. CHEST X-RAY TECHNIQUE: TWO VIEWS. FINDINGS: MINIMAL PLEURAL EFFUSION IS SEEN. PERIBRONCHIAL CUFFING AND PERIHILAR INFILTRATES ARE SUSPICIOUS FOR BRONCHITIS. NO LOBAR PNEUMONIAIS PRESENT. CALCIFIED NODULE IN THE RIGHT LUNG IS CONSISTENT WITH GRANULOMATOUSCHANGE. MILD SPURRING IN THE THORACIC SPINE IS SEEN. ELECTRONICALLY SIGNED BY: ROLANDA LANCASTER M.D. 12/06/2014 12:36 P ROLANDA LANCASTER M.D. P #[id number] P/MA CC: PB SU M.D. Pb Su MD GENERAL IMAGING Final Resul t documented in this encounter Visit Diagnoses Not on filedocumented in this encounter Care Teams Dance Instructor Relationship Specialty Start Date End Date Pb Su MD [address] [place], [place] [id number] PCP - General 04/26/16 Pb Su MD [address] [place], [place] [address] PCP - General 05/19/15 04/25/16 Pb Su MD [address] [place] [address] PCP - General 12/07/14 05/18/15 Pb Su MD [address] [place] [address] PCP - General 12/05/14 12/06/14 documented as of this encounter
--- OUTSIDE RECORDS SUMMARY | 2024-11-14 10:17 | XMS_ITS | Encounter Summary ---
Author Organization [facility] Address [address] [place] [address]. [place], [place] [address] [place] [address] Care Team Providers Care Regulatory Affairs Analyst Name Role Phone Pb Su MD Primary Care Provider Pb Su MD Primary Care Provider Pb Su MD Primary Care Provider Pb Su MD Primary Care Provider Pb Su MD Primary Care Provider Encounter Details Date Type Department Care Team (Latest Contact Info) Description 03/24/2014 Abstract [facility] Medical Group Social History Tobacco [...] on filedocumented in this encounter Care Teams Regulatory Affairs Analyst Relationship Specialty Start Date End Date Pb Su MD [address] [place], [place] [id number] PCP - General 04/26/16 Pb Su MD [address] [place], [place] [id number] PCP - General 05/19/15 04/25/16 Pb Su MD [address] [place], [place] [id number] PCP - General 12/07/14 05/18/15 Pb Su MD [address] [place], [place] [id number] PCP - General 12/05/14 12/06/14 Pb Su MD [address] [place], [place] [id number] PCP - General 03/23/14 12/04/14 documented as of this encounter
--- OUTSIDE RECORDS SUMMARY | 2024-11-14 10:17 | XMS_ITS | Encounter Summary ---
Author Organization [facility] Address [address] [place] [address]. [place], [place] [address] [place] [address] Care Team Providers Care Cop Name Role Phone Pb Su MD Primary Care Provider Pb Su MD Primary Care Provider Pb Su MD Primary Care Provider [phone] Pb Su MD Primary Care Provider Pb Su MD Primary Care Provider Encounter Details Date Type Department Care Team (Latest Contact Info) Description 04/04/2014 Abstract [facility] Medical Group Social History Tobacco Use Types [...] on filedocumented in this encounter Care Teams Cop Relationship Specialty Start Date End Date Pb Su MD [address] [place], [place] [id number] PCP - General 04/26/16 Pb Su MD [address] [place], [place] [id number] PCP - General 05/19/15 04/25/16 Pb Su MD [address] [place], [place] [id number] PCP - General 12/07/14 05/18/15 Pb Su MD [address] [place], [place] [id number] PCP - General 12/05/14 12/06/14 Pb Su MD [address] [place], [place] [id number] PCP - General 03/23/14 12/04/14 documented as of this encounter
--- OUTSIDE RECORDS SUMMARY | 2024-11-14 10:17 | XMS_ITS | Encounter Summary ---
Author Organization [facility] Address [address] [place] [address]. [place], [place] [address] [place] [address] Care Team Providers Care Wheel Truing Machine Tender Name Role Phone Pb Su MD Primary Care Provider Pb Su MD Primary Care Provider Pb Su MD Primary Care Provider [phone] Pb Su MD Primary Care Provider Pb Su MD Primary Care Provider Encounter Details Date Type Department Care Team (Latest Contact Info) Description 03/30/[address] [facility] Medical Group Social History Tobacco Use Types [...] on filedocumented in this encounter Care Teams Wheel Truing Machine Tender Relationship Specialty Start Date End Date Pb Su MD [address] [place], [place] [id number] PCP - General 04/26/16 Pb Su MD [address] [place], [place] [id number] PCP - General 05/19/15 04/25/16 Pb Su MD [address] [place], [place] [id number] PCP - General 12/07/14 05/18/15 Pb Su MD [address] [place], [place] [id number] PCP - General 12/05/14 12/06/14 Pb Su MD [address] [place], [place] [phone] PCP - General 03/23/14 12/04/14 documented as of this encounter
--- OUTSIDE RECORDS SUMMARY | 2024-11-14 10:17 | XMS_ITS | Encounter Summary ---
Author Organization [facility] Address [address] [place] [address]. [place], [place] [address] [place] [address] Care Team Providers Care Back End Developer Name Role Phone Pb Su MD Primary Care Provider Pb Su MD Primary Care Provider Pb Su MD Primary Care Provider Pb Su MD Primary Care Provider Pb Su MD Primary Care Provider Pb Su MD Primary Care Provider bP Su MD Primary Care Provider Pb Su [...] Department Care Team (Latest Contact Info) Description 01/21/2014 Abstract [facility] Social History Tobacco Use [...] on filedocumented in this encounter Care Teams Back End Developer Relationship Specialty Start Date End Date Pb Su MD [address] [place], [place] [address] PCP - General 04/26/16 Pb Su MD [address] [place], [place] [id number] PCP - General 05/19/15 04/25/16 Pb Su MD [address] [place], [place] [id number] PCP - General 12/07/14 05/18/15 Pb Su MD [address] [place], [place] [id number] PCP - General 12/05/14 12/06/14 Pb Su MD [address] [place] [id number] PCP - General 03/23/14 12/04/14 Pb Su MD [address] [place], [place] [id number] PCP - General 03/21/14 03/22/14 Pb Su MD [address] [place] [address] PCP - General 03/16/14 03/20/14 Pb Su MD [address] [place] [address] PCP - General 03/14/14 03/15/14 Pb Su MD [address] [place] [address] PCP - General 03/09/14 03/13/14 Pb Su MD [address] [place] [address] PCP - General 03/02/14 03/08/14 Pb Su MD [address] [place], [place] [address] PCP - General 02/28/14 03/01/14 Pb Su MD [address] [place], [place] [address] PCP - General 02/25/14 02/27/14 Pb Su MD [address] [place], [place] [address] PCP - General 02/23/14 02/24/14 Pb Su MD [address] [place], [place] [id number] PCP - General 02/17/14 02/22/14 Pb Su MD [address] [place], [place] [id number] PCP - General 11/02/13 02/16/14 documented as of this encounter
--- OUTSIDE RECORDS SUMMARY | 2024-11-14 10:17 | XMS_ITS | Encounter Summary ---
Author Organization [facility] Address [address] [place] [address]. [place], [place] [address] [place] [address] Care Team Providers Care Records Coordinator Name Role Phone Pb Su MD [...] Care Team (Late st Contact Info) Description 01/20/2014 Abstract [facility] Family Medicine - Aram [address] [place] [phone] Pb Su MD [address] [place] [address] Social History Tobacco Use Types Packs/Day Years Used Date Smoking Tobacco: Never Assessed Sex and Gender Information Value Date Recorded Sex Assigned at Not on file Legal Sex Male 7:22 PM CDT Gender Identity Not on file Sexual Orientation Not on file documented as of this encounter Last Filed Vital Signs Vital Sign Reading Time Taken Comments Blood Pressure 110/64 01/20/2014 8:00 AM HOP SEPARATOR Pulse 68 01/20/2014 8:00 AM HOP SEPARATOR Temperature - - Respiratory Rate - - Oxygen Saturation - - Inhaled Oxygen Concentration - - Weight 100.2 kg (221 lb) 01/20/2014 8:00 AM HOP SEPARATOR Height 182.9 cm (6') 01/20/2014 8:00 AM HOP SEPARATOR Body Mass Index 29.97 01/20/2014 8:00 AM HOP SEPARATOR documented in this encounter Progress Notes * Pb Su MD - 01/20/2014 8:15 AM CST Reason For Visit Chronic Recheck Visit Chief Complaint Patient here for right knee pain. History of Present Illness 48 yo male with increasing pain/enlarging soft tissue lesion right knee The patient is being seen for follow-up of knee pain. Symptoms: knee pain, knee clicking and decreased knee range of motion, but no knee redness, no kneewarmth, no knee bruising, no knee stiffness, no knee locking, no knee instability, no limping and no refusal to bear weight. Symptom Cluster Details: he reports the symptoms are worsening. Associatedsymptoms: pain in other joints, but no fever, no chills and no rash. Current Treatment: Current treatment includes activity modification. By report, there is poor symptom control. Pertinent History: Pertinent medical history: previous knee injury and osteoarthritis. The patient is currently able to do activities of daily living without limitations. Evaluation and Treatment History: He was previously evaluated by me > 6 months month(s) ago. Previous presentation included knee pain, knee swelling and knee stiffness. Past evaluation has included knee MRI. Past treatment has included physical therapy. The patient states his osteoarthritis [...] 8. Lower back pain (724.2) (M54.5) 9. Muscle spasm (728.85) (M62.49) 10. Osteoarthritis (715.90) (M19.90) 11. Pain in joint of left shoulder (719.41) (M25.512) 12. Premature ventricular contractions (427.69) (I49.3) 13. Right knee pain (719.46) (M25.561) 14. Routine history and physical examination of adult (V70.0) (Z00.00) 15. Screening for prostate cancer (V76.44) (Z12.5) 16. Vitamin d deficiency (268.9) (E55.9) Past Medical [...] 1 TABLET BY MOUTH AT BEDTIME; Therapy: [id number] to (Evaluate:84Aso2919); Last Rx:[id number] Ordered 2. Claritin 10 MG Oral Tablet; Therapy: (Recorded:60Hde8037) to Recorded 3. Cyclobenzaprine HCl - 10 MG Oral Tablet; TAKE 1 TABLET 3 TIMES DAILY NEEDED; Therapy: 27Eje7000 to (Evaluate:26Feb2014) Requested for: 96Qls0282; Last Rx:[id number] Ordered 4. TraMADol HCl - 50 MG Oral Tablet; TAKE 1 TABLET 3 TIMES DAILY; Therapy: 92Eat2070 to (Evaluate:06Feb2014); Last Rx:[id number] Ordered Allergies 1. Acetaminophen-Codeine #3 TABS Vitals Recorded by : Denisse Ceja at 68Nmz3444 08:00AM Temperature 97.7 F, Oral Heart Rate 68, L Radial Pulse Quality Normal, L Radial Respiration 14 Respiration Quality Normal Systolic 110, LUE, Sitting Diastolic 64, LUE, Sitting Height 6 ft Weight 221 lb BMI Calculated 29.97 BSA Calculated 2.22 Pain Scale 0-5 Comment right knee pain, worse when kneeling on it Physical Exam Constitutional General appearance: No acute [...] finger to nose and heel to paez. Right Knee: Appearance: a deformity, swellingand soft tissue protruberance, but no dislocation, no erythema, no genu valgum and no genu varum. Tenderness: None except the diffuse anterior knee, prepatellar bursa and undersurface of the patella,but not the pes anserine bursa. Palpatory findings include crepitus. ROM: Full. Motor: Normal. Special Tests: positive patellar grind and equivocal Pivot Shift test, but negative patellofemoral apprehension test, negative medial Jc test, negative Anterior Drawer sign, negative David's test,negative Posterior Drawer sign, no laxity on valgus stress and no laxity on varus stress. Patellofemoral Joint: Meniscal: Assessment 1. Right knee pain (719.46) (M25.561) Plan 1. Apply an ice pack 4 times a day for 20 minutes the first 2 days. Status: Complete Done: 76Pis3076 03:30PM Ordered; For: Right knee pain; Ordered By: Pb Su 2. Apply cold compresses 4 times a day for 20 minutes to help relieve pain or itching. Status: Complete Done: 66Ctl5692 03:30PM Ordered; For: Right knee pain; Ordered By: Pb Su 3. Apply ice to your knee for 30 minutes after exercise to help reduce swelling and pain. Status: Complete Done: 64Ich6735 03:30PM Ordered; For: Right knee pain; Ordered By: Pb Su 4. Call if: Swelling of the ankle is not better in 2 days. Status: Complete Done: 19Qza6374 03:30PM Ordered; For: Right knee pain; Ordered By: Pb Su 5. Call if: The pain is not better in 2 days. Status: Complete Done: 93Qkh5995 03:30PM Ordered; For: Right knee pain; Ordered By: Pb Su 6. Call if: The pain seems worse. Status: Complete Done: 90Vhn1650 03:30PM Ordered; For: Right knee pain; Ordered By: Pb Su 7. Call if: The symptoms are not better in 7 days. Status: Complete Done: 08Mmg3912 03:30PM Ordered; For: Right knee pain; Ordered By: Pb Su 8. Call if: The symptoms come back after a period of time of being normal. Status: Complete Done: 71Jkk7535 03:30PM Ordered; For: Right knee pain; Ordered By: Pb Su 9. Call if: Your ankle swelling is getting worse. Status: Complete Done: 33Zxf3578 03:30PM Ordered; For: Right knee pain; Ordered By: Pb Su 10. Call if: Your knee continues to feel unsteady or gives way. Status: Complete Done: 75Iqn6016 03:30PM Ordered; For: Right knee pain; Ordered By: Pb Su 11. Call if: Your knee locks so you cannot bend or straighten it. Status: Complete Done: 48Mtf4313 03:30PM Ordered; For: Right knee pain; Ordered By: Pb Su Orthopedic Surgery Referral Outpatient 48 yo male: chronic and progressive knee pain/stiffness and large soft tissue swwelling over patella.. Request [facility] orthopedic consult with Dr Mak for eval/treatment! Request [employer] Authorization for [facility] ongoing care with Dr Singh Mak Status: Need Info rmation - Financial Authorization Requested for: [id number] Ordered; For: Knee pain, right; Ordered By: Pb Su Performed: Due: 03Feb2014 Discussion/Summary Summary: 48 yo male with chronic right knee pain: noted to have soft tissue swelling/ fibrocystic chsnges.Differential diagnosis to include fibrocystic soft tissue swelling. Referred to [facility] Orthopedic Surgery Signatures Electronically signed by : Pb Su M.D.; Jan 20 2014 3:32PM HOP SEPARATOR (Author) SEPARATOR documented in this encounter Plan of Treatment Not on file documented as of this encounter Visit Diagnoses Not on filedocumented in this encounter Care Teams Records Coordinator Relationship Specialty Start Date End Date Pb Su MD [address] [place], [place] [address] PCP - General 04/26/16 Pb Su MD [address] [place], [place] [id number] PCP - General 05/19/15 04/25/16 Pb Su MD [address] [place], [place] [id number] PCP - General 12/07/14 05/18/15 Pb Su MD [address] [place] [address] PCP - General 12/05/14 12/06/14 Pb Su MD [address] [place], [place] [id number] PCP - General 03/23/14 12/04/14 Pb Su MD [address] [place], [place] [address] PCP - General 03/21/14 03/22/14 Pb Su MD [address] [place] [address] PCP - General 03/16/14 03/20/14 Pb Su MD [address] [place] [address] PCP - General 03/14/14 03/15/14 Pb Su MD [address] [place] [address] PCP - General 03/09/14 03/13/14 Pb Su MD [address] [place], [place] [address] PCP - General 03/02/14 03/08/14 Pb Su MD [address] [place], [place] [address] PCP - General 02/28/14 03/01/14 Pb Su MD [address] [place], [place] [address] PCP - General 02/25/14 02/27/14 Pb Su MD [address] [place] [address] PCP - General 02/23/14 02/24/14 Pb Su MD [address] [place] [address] PCP - General 02/17/14 02/22/14 Pb Su MD [address] [place] [address] PCP - General 11/02/13 02/16/14 documented as of this encounter
--- OUTSIDE RECORDS SUMMARY | 2024-11-14 10:17 | XMS_ITS | Encounter Summary ---
Author Organization [facility] Address [address] [place] [address]. [place], [place] [id number] [place] [address] Care Team Providers Care Refrigerator Mover Name Role Phone Pb Su MD Primary Care Provider [phone] Pb Su MD Primary Care Provider Pb Su MD Primary Care Provider [phone] Pb Su MD Primary Care Provider Pb Su MD Primary Care Provider Encounter Details Date Type Department Care Team (Latest Contact Info) Description 03/28/2014 Abstract [facility] Social History Tobacco Use Types Packs/Day Years Used Date Smoking Tobacco: Never Assessed Sex and Gender Information Value Date Recorded Sex Assigned at Not on file Legal Sex Male 7:22 PM CDT Gender Identity Not on file Sexual Orientation Not on file documented as of this encounter Progress Notes * Generic Conversion MD Shena - 03/28/2014 4:26 PM CDT Message Message: Call placed to patient at this time. No answer left message to call back for MRI results at this time. would like to refer patient to Neuro SX. Patient called back to clinic at this time. Given information and patient agrees with plan of care. Dr. Su to be notified. Ella Aquino RN Referral placed at this time by myself. No further Action required. Signatures Electronically signed by : Gi Aquino, ; Mar 28 2014 4:27PM BUSINESS PLANNING DIRECTOR (Author) Electronically signed by : Gi Aquino, ; Mar 29 2014 10:39AM BUSINESS PLANNING DIRECTOR (Author) NESS PLANNING DIRECTOR documented in this encounter Plan of Treatment Not on file documented as of this encounter Visit Diagnoses Not on filedocumented in this encounter Care Teams Refrigerator Mover Relationship Specialty Start Date End Date Pb Su MD [address] [place] [address] PCP - General 04/26/16 Pb Su MD [address] [place], [place] [address] PCP - General 05/19/15 04/25/16 Pb Su MD [address] [place], [place] [address] PCP - General 12/07/14 05/18/15 Pb Su MD [address] [place] [address] PCP - General 12/05/14 12/06/14 Pb Su MD [address] [place], [place] [address] PCP - General 03/23/14 12/04/14 documented as of this encounter
--- OUTSIDE RECORDS SUMMARY | 2024-11-14 10:17 | XMS_ITS | Encounter Summary ---
Author Organization [facility] Address [address] [place] [address]. [place] [address] [place] [address] Care Team Providers Care Roll Icer Machine Name Role Phone Pb Su MD Primary Care Provider Pb Su MD Primary Care Provider Pb Su MD Primary Care Provider Pb Su MD Primary Care Provider Pb Su MD Primary Care Provider Encounter Details Date Type Department Care Team (Late st Contact Info) Description 2014 [facility] [address] [place] [address] Pb Su MD [address] [place] [address] Social History Tobacco Use Types Packs/Day Years Used Date Smoking Tobacco: Never Assessed Sex and Gender Information Value Date Recorded Sex Assigned at Not on file Legal Sex Male 7:22 PM CDT Gender Identity Not on file Sexual Orientation Not on file documented as of this encounter Plan of Treatment Not on file documented as of this encounter Visit Diagnoses Diagnosis Encounter for other physical therapy documented in this encounter Care Teams Roll Icer Machine Relationship Specialty Start Date End Date Pb Su MD [address] [place] [address] PCP - General 04/26/16 Pb Su MD [address] [place] [address] PCP - General 05/19/15 04/25/16 Pb Su MD [address] [place] [address] PCP - General 12/07/14 05/18/15 Pb Su MD [address] [place] [address] PCP - General 12/05/14 12/06/14 Pb Su MD [address] [place], [place] [address] PCP - General 03/23/14 12/04/14 documented as of this encounter
--- OUTSIDE RECORDS SUMMARY | 2024-11-14 10:18 | XMS_ITS | Encounter Summary ---
Author Organization [facility] Address [address] [place] [address]. [place], [place] [address] [place] [address] Care Team Providers Care Field Contact Person Name Role Phone Pb Su MD Primary [...] Department Care Team (Latest Contact Info) Description 10/04/2013 Abstract [facility] Social History [...] on filedocumented in this encounter Care Teams Field Contact Person Relationship Specialty Start Date End Date Pb Su MD [address] [place], [place] [id number] PCP - General 04/26/16 Pb Su MD [address] [place] [address] PCP - General 05/19/15 04/25/16 Pb Su MD [address] [place] [address] PCP - General 12/07/14 05/18/15 Pb Su MD [address] [place] [address] PCP - General 12/05/14 12/06/14 Pb Su MD [address] [place], [place] [address] PCP - General 03/23/14 12/04/14 Pb Su MD [address] [place] [address] PCP - General 03/21/14 03/22/14 Pb Su MD [address] [place] [address] PCP - General 03/16/14 03/20/14 Pb Su MD [address] [place], [place] [address] PCP - General 03/14/14 03/15/14 Pb Su MD [address] [place], [place] [address] PCP - General 03/09/14 03/13/14 Pb Su MD [address] [place] [address] PCP - General 03/02/14 03/08/14 Pb Su MD [address] [place], [place] [address] PCP - General 02/28/14 03/01/14 Pb Su MD [address] [place] [address] PCP - General 02/25/14 02/27/14 Pb Su MD [address] [place] [address] PCP - General 02/23/14 02/24/14 Pb Su MD [address] [place] [address] PCP - General 02/17/14 02/22/14 Pb Su MD [address] [place] [address] PCP - General 11/02/13 02/16/14 Pb Su MD [address] [place] [address] PCP - General 09/30/13 11/01/13 documented as of this encounter
--- OUTSIDE RECORDS SUMMARY | 2024-11-14 10:18 | XMS_ITS | Encounter Summary ---
Author Organization [facility] Address [address] [place] [address]. [place], [place] [id number] [place] [address] Care Team Providers Care Machine Paint Mixer Name Role Phone Pb Su MD Primary [...] Care Team (Late st Contact Info) Description 11/02/2013 Abstract [facility] - [place] [address] [place] [id number] Pb Su MD [address] [place] [address] Social History Tobacco Use Types Packs/Day Years Used Date Smoking Tobacco: Never Assessed Sex and Gender Information Value Date Recorded Sex Assigned at Not on file Legal Sex Male 7:22 PM CDT Gender Identity Not on file Sexual Orientation Not on file documented as of this encounter Last Filed Vital Signs Vital Sign Reading Time Taken Comments Blood Pressure 112/70 11/02/2013 8:10 AM EXECUTIVE SEARCH CONSULTANT Pulse 64 11/02/2013 8:10 AM EXECUTIVE SEARCH CONSULTANT Temperature - - Respiratory Rate - - Oxygen Saturation - - Inhaled Oxygen Concentration - - Weight 100.2 kg (221 lb) 11/02/2013 8:10 AM EXECUTIVE SEARCH CONSULTANT Height 182.9 cm (6') 11/02/2013 8:10 AM EXECUTIVE SEARCH CONSULTANT Body Mass Index 29.97 11/02/2013 8:10 AM EXECUTIVE SEARCH CONSULTANT documented in this encounter Progress Notes * Generic Conversion MD Shena - 11/02/2013 8:15 AM CST Reason For Visit Nurse Visit: Injection Chief Complaint Toradol 60mg ( Ketorolac Tromethamine ) given in right gluteal muscle IM. Site was cleaned and no flash back on aspiraton. Patient tollerated well. No adverse reactions while in the office. Active Problems 1. Atrial Fibrillation 427.31 2. Fatigue 780.79 3. Hyperlipidemia 272.4 4. Joint Pain In The Right Knee 719.46 5. Joint Pain, Localized In The Knee 719.46 6. Lower Back Pain 724.2 7. Normal Routine History And Physical V70.0 8. Osteoarthritis 715.90 9. Pain In The Hands 729.5 10. Premature Ventricular Contractions 427.69 11. Visit For: Screening Exam Malignant Neoplasm Prostate V76.44 12. Vitamin D Deficiency 268.9 Current Meds 1. Atorvastatin Calcium 20 MG Oral Tablet; TAKE 1 TABLET BY MOUTH AT BEDTIME; Therapy: 22Jtc5051 to (Evaluate:82Dhd0869); Last Rx:[id number] 2. Claritin 10 MG Oral Tablet; Therapy: (Recorded:66Avd2027) to Allergies 1. Acetaminophen-Codeine #3 TABS Vitals Signs [Data Includes: Current Encounter] Temperature: 97 F, Oral Heart Rate: 64, L Radial Pulse Quality: Normal, L Radial Respiration: 16 Respiration Quality: Normal Systolic: 112, LUE, Sitting Diastolic: 70, LUE, Sitting BMI Calculated: 29.94 BSA Calculated: 2.22 Height: 6 ft Weight: 221 lb Pain Scale: 10 Comment: Lower back pain Assessment 1. Lower Back Pain 724.2 Plan 1. Cyclobenzaprine HCl 10 MG Oral Tablet; TAKE 1 TABLET 3 TIMES DAILY NEEDED; Therapy: 19Cge7192 to (Evaluate:12Dec2013); Last Rx:[id number] Signatures Electronically signed by : Randee Morrow, ; Nov 02 2013 8:48AM (Author) UTIVE SEARCH CONSULTANT * Pb Su MD - 11/02/2013 8:15 AM CST Reason For Visit Acute Visit Chief Complaint Patient here for lower back pain for about a week. History of Present Illness HPI: 48 yo male with low back pain/spasm-initial episode last week. We addressed history/ exam/ developed differential dx, evaluation/treatment plan Client reports pain/spasm but denies fever, chills, weight loss, loss bowel and or bladder control, weakness, parathesias. Previous history of back pain/spasm. The patient is being seen for a [...] activity modification, heatand physical therapy. The patient is being seen for follow-up from urgent care for acute low back pain. This condition isnot related to a specific injury and related to repetitive activity. The injury started 1 year year(s) ago, is chronic, occurred during a sports activity, resulted from lifting and resulted from bending. Symptoms: intermittent back pain, back pain and stiffness. Pain is made worse with bending. SymptomCluster Details: he reports the symptoms are improving. Associated symptoms: malaise, but no weightloss, no paresthesias, no leg weakness, no leg numbness and no saddle paresthesia. Current Treatment: Current treatment includes activity modification. By report, there is fair symptom control. Pertinent History: Pertinent medical history: previous back injury. 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 The patient is currently able to do activities of daily living without limitations. Evaluation and Treatment History: He was previously evaluated by me. Past treatment has included activity modification, heat and physical therapy. The patient states his osteoarthritis has been worse since the last visit. Comorbid Illnesses: history atrial fibrillation. He has no complications from osteoarthritis. Interval Events: He was evaluated by me. He presented with joint pain and fatigue. The evaluation included rheumatoid factor, ALXE, an erythrocyte sedimentation rate, a basic metabolic [...] not doing well with his osteoarthritis goals. Weight: not yet atgoal. Exercise: not yet at goal. Review of Systems Constitutional: fatigue. Head and Face: negative. Eyes: negative. ENT: negative. Cardiovascular: palpitations. Respiratory: negative. Gastrointestinal: negative. Genitourinary: negative. Musculoskeletal: back pain and joint stiffness. Integumentary and Breasts: negative. Neurological: negative. Psychiatric: negative. Endocrine: negative. Hematologic and Lymphatic: negative. Active Problems 1. Atrial Fibrillation 427.31 2. Fatigue 780.79 3. Hyperlipidemia 272.4 4. Joint Pain In The Right Knee 719.46 5. Joint Pain, Localized In The Knee 719.46 6. Lower Back Pain 724.2 7. Normal Routine History And Physical V70.0 8. Osteoarthritis 715.90 9. Pain In The Hands 729.5 10. Premature Ventricular Contractions 427.69 11. Visit For: Screening Exam Malignant Neoplasm Prostate V76.44 12. Vitamin D Deficiency 268.9 Past Medical History 1. History of Adult Sleep Apnea 780.57 2. History of Arthritis V13.4 3. History of Hypercholesterolemia 272.0 4. History of Primary Snoring 786.09 Social History ?? Alcohol Use (History) ?? Former Smoker V15.82 Current Meds 1. Atorvastatin Calcium 20 MG Oral Tablet; TAKE 1 TABLET BY MOUTH AT BEDTIME; Therapy: 29Jun2013 to (Evaluate:24Jun2014); Last Rx:29Jun2013 2. Claritin 10 MG Oral Tablet; Therapy: (Recorded:29Jun2013) to Allergies 1. Acetaminophen-Codeine #3 TABS Vitals 30Uca9816 08:10AM Temperature 97 F, Oral Heart Rate 64, L Radial Pulse Quality Normal, L Radial Respiration 16 Respiration Quality Normal Systolic 112, LUE, Sitting Diastolic 70, LUE, Sitting BMI Calculated 29.94 BSA Calculated 2.22 Height 6 ft Weight 221 lb Pain Scale 10 Comment Lower back pain Physical Exam Lumbosacral Spine: Appearance: Normal. Tenderness: right paraspinal and right sciatic notch. Flexion was restricted. Extension was restricted. Left lateral flexion was restricted. Right lateral flexion was restricted. Rotation to the left was restricted. Rotation to the right was not restricted. Motor: Deferred. Special Tests: positive Straight Leg Raise. Constitutional: uncomfortable. General Appearance: Well developed, appears [...] nose and heel to paez. Assessment 1. Lower Back Pain 724.2 Plan 1. Cyclobenzaprine HCl 10 MG Oral Tablet; TAKE 1 TABLET 3 TIMES DAILY NEEDED; Therapy: 12Sio6469 to (Evaluate:12Dec2013) Requested for: 14Kkl1977; Last Rx:[id number]; Edited Ordered; For: Lower Back Pain (724.2); Rx By: Pb Su; Dispense: 10 Days ; #:30 Tablet; Refill: 3; Verified Transmission to [facility] 2. Call if: The pain is not better in 2 weeks. Done: 01Akp7411 Ordered; For: Lower Back Pain (724.2); Ordered By: Pb Su 3. Call if: The pain seems worse. Done: 77Mbc4713 Ordered; For: Lower Back Pain (724.2); Ordered By: Pb Su 4. Call if: You get a headache that does not go away with your usual treatment. Done: 81Bik7013 Ordered; For: Lower Back Pain (724.2); Ordered By: Pb Su 5. Call if: You get a rash. Done: 59Gui7466 Ordered; For: Lower Back Pain (724.2); Ordered By: Pb Su 6. Call if: You get a severe headache that seems different from your usual ones. Done: 22Byk6112 Ordered; For: Lower Back Pain (724.2); Ordered By: Pb Su 7. Call if: You have pain or numbness from your back to your hip and leg. Done: 48Nya9091 Ordered; For: Lower Back Pain (724.2); Ordered By: Pb Su 8. Call if: You lose weight without trying to. Done: 08Opu8518 Ordered; For: Lower Back Pain (724.2); Ordered By: Pb Su 9. Call if: Your temperature is higher than 101F. Done: 59Mke4761 Ordered; For: Lower Back Pain (724.2); Ordered By: Pb Su 10. Call 911 if: You have any loss of bowel or bladder control. Done: 06Lzj8494 Ordered; For: Lower Back Pain (724.2); Ordered By: Pb Su 11. Call 911 if: You have signs of dangerous pressure on the nerves in your pelvis. Done: 02Cob4563 Ordered; For: Lower Back Pain (724.2); Ordered By: Pb Su 12. Seek Immediate Medical Attention if: Your foot becomes weak. Done: 23Jzx0740 Ordered; For: Lower Back Pain (724.2); Ordered By: Pb Su 13. Seek Immediate Medical Attention if: Your leg is numb, cold, or tingling. Done: 23Ghh9413 Ordered; For: Lower Back Pain (724.2); Ordered By: Pb Su 14. Avoid being constipated and avoid straining while having a bowel movement. Done: 15Drv7546 Ordered; For: Lower Back Pain (724.2); Ordered By: Pb Su 15. Begin a walking program. Start with walks lasting 10 minutes and slowly work up to 30-40 minutes as pain allows. Done: 65Gmi8348 Ordered; For: Lower Back Pain (724.2); Ordered By: Pb Su 16. Some eating tips that can help you lose weight. Done: 06Taa9163 Ordered; For: Lower Back Pain (724.2); Ordered By: Pb Su 17. We recommend that you avoid straining your back while lifting. Done: 58Qbo5848 Ordered; For: Lower Back Pain (724.2); Ordered By: Pb Su Discussion/Summary Summary: 48 yo male with low back pain/spasm: see Care Guide. Plan-IM toradol + muscle relaxant, + heating pad/rest! See Care Guide Signatures Electronically signed by : Pb Su M.D.; Nov 02 2013 2:29PM (Author) UTIVE SEARCH CONSULTANT documented in this encounter Plan of Treatment Not on file documented as of this encounter Visit Diagnoses Not on filedocumented in this encounter Care Teams Machine Paint Mixer Relationship Specialty Start Date End Date Pb Su MD [address] [place], [place] [address] PCP - General 04/26/16 Pb Su MD [address] [place], [place] [address] PCP - General 05/19/15 04/25/16 Pb Su MD [address] [place], [place] [address] PCP - General 12/07/14 05/18/15 Pb Su MD [address] [place], [place] [address] PCP - General 12/05/14 12/06/14 Pb Su MD [address] [place], [place] [address] PCP - General 03/23/14 12/04/14 Pb Su MD [address] [place] [address] PCP - General 03/21/14 03/22/14 Pb Su MD [address] [place] [address] PCP - General 03/16/14 03/20/14 Pb Su MD [address] [place], [place] [address] PCP - General 03/14/14 03/15/14 Pb Su MD [address] [place], [place] [address] PCP - General 03/09/14 03/13/14 Pb Su MD [address] [place], [place] [address] PCP - General 03/02/14 03/08/14 Pb Su MD [address] [place], [place] [address] PCP - General 02/28/14 03/01/14 Pb Su MD [address] [place], [place] [address] PCP - General 02/25/14 02/27/14 Pb Su MD [address] [place] [address] PCP - General 02/23/14 02/24/14 Pb Su MD [address] [place] [address] PCP - General 02/17/14 02/22/14 Pb Su MD [address] [place] [address] PCP - General 11/02/13 02/16/14 documented as of this encounter
--- OUTSIDE RECORDS SUMMARY | 2024-11-14 10:18 | XMS_ITS | Encounter Summary ---
Author Organization [facility] Address [address] [place] [address]. [place], [place] [address] [place] [address] Care Team Providers Care Manager Life Name Role Phone Pb Su MD Primary Care Provider [phone] Pb Su MD Primary Care Provider Pb [...] Department Care Team (Latest Contact Info) Description 09/30/2013 Abstract [facility] Pb Su MD [address] [place] [address] Social History Tobacco Use Types Packs/Day Years [...] Procedure Name Priority Date/Time Associated Diagnosis Comments XR HAND LT 3V Routine 09/30/2013 8:48 AM UPHOLSTERER OUTSIDE documented in this encounter Results * XR HAND LT 3V (09/30/2013 8:48 AM UPHOLSTERER OUTSIDE) Anatomical Region Laterality Modality Hand Radiographic Clary ging 09/30/2013 8:48 AM UPHOLSTERER OUTSIDE 09/30/2013 8:48 AM UPHOLSTERER OUTSIDE Narrative 09/30/2013 10:51 AM UPHOLSTERER OUTSIDE AVA CEDILLO JR MD: PB SU MD ?? ACCT: [id number] ?? : 1965 PT TYPE: REG CLI ?? SEX: M ORD SITE: [facility] OUTPT IMAGING ? STUDY DATE REPORT # PROCEDURE CODE PROCEDURE ?? 09/30/13 [id number] XR HAND MINIMUM 3 VIEW LT ? EXTORDERID ? [id number] ? ACCESSION NUMBER ?? [id number] ?CHART DOCUMENT ? IMPRESSION: ? NO ACUTE OSSEOUS ABNORMALITIES. ? NO SIGNIFICANT FEATURES OF ARTHRITIS. ? HISTORY: ??PAIN IN BOTH HANDS X3 WEEKS. ??HISTORY OF ARTHRITIS. ? THREE VIEWS LEFT HAND ? FINDINGS: ??NO ACUTE FRACTURE OR DISLOCATION. ??JOINT SPACES ARE PRESERVED. ?? NO DESTRUCTIVE OSSEOUS, LYTIC, OR SCLEROTIC LESION. ??NO RADIOPAQUE FOREIGN ?? BODIES. ? ELECTRONICALLY SIGNED BY: ?? KEL HEDNRICKSON M.D. 09/30/2013 10:50 ?? KEL HENDRICKSON M.D. ? D: ??09/30/2013 ??8:56 A ??#[id number] ?? T: ??09/30/2013 ??9:15 A/MA ? CC: ?PB SU M.D. ? Radiology image is available. Click on Image Link above. Procedure Note Vahe Chatterjee MD - 09/17/2018 AVA CEDILLO JR MD: PB SU MD ACCT: [id number] : 1965 PT TYPE: REG CLI SEX: M ORD SITE: [facility] OUTPT IMAGING STUDY DATE REPORT # PROCEDURE CODE PROCEDURE 09/30/13 [id number] XR HAND MINIMUM 3 VIEW LT EXTORDERID [id number] ACCESSION NUMBER [id number] CHART DOCUMENT IMPRESSION: NO ACUTE OSSEOUS ABNORMALITIES. NO SIGNIFICANT FEATURES OF ARTHRITIS. HISTORY: PAIN IN BOTH HANDS X3 WEEKS. HISTORY OF ARTHRITIS. THREE VIEWS LEFT HAND FINDINGS: NO ACUTE FRACTURE OR DISLOCATION. JOINT SPACES ARE PRESERVED. NO DESTRUCTIVE OSSEOUS, LYTIC, OR SCLEROTIC LESION. NO RADIOPAQUEFOREIGN BODIES. ELECTRONICALLY SIGNED BY: KEL HENDRICKSON M.D. 09/30/2013 10:50 KEL HENDRICKSON M.D. A #[id number] A/MATILDE CC: PB SU M.D. Radiology image is available. Click on Image Link above. us Pb Su MD GENERAL IMAGING Final Resul t documented in this encounter Visit Diagnoses Not on filedocumented in this encounter Care Teams Manager Life Relationship Specialty Start Date End Date Pb Su MD [address] [place] [address] PCP - General 04/26/16 Pb Su MD [address] [place] [address] PCP - General 05/19/15 04/25/16 Pb Su MD [address] [place] [address] PCP - General 12/07/14 05/18/15 Pb Su MD [address] [place] [address] PCP - General 12/05/14 12/06/14 Pb Su MD [address] [place], [place] [address] PCP - General 03/23/14 12/04/14 Pb Su MD [address] [place], [place] [address] PCP - General 03/21/14 03/22/14 Pb Su MD [address] [place], [place] [address] PCP - General 03/16/14 03/20/14 Pb Su MD [address] [place], [place] [address] PCP - General 03/14/14 03/15/14 Pb Su MD [address] [place], [place] [address] PCP - General 03/09/14 03/13/14 Pb Su MD [address] [place], [place] [address] PCP - General 03/02/14 03/08/14 Pb Su MD [address] [place], [place] [address] PCP - General 02/28/14 03/01/14 Pb Su MD [address] [place] [address] PCP - General 02/25/14 02/27/14 Pb Su MD [address] [place] [address] PCP - General 02/23/14 02/24/14 Pb Su MD [address] [place], [place] [address] PCP - General 02/17/14 02/22/14 Pb uS MD [address] [place], [place] [address] PCP - General 11/02/13 02/16/14 Pb Su MD [address] [place], [place] [address] PCP - General 09/30/13 11/01/13 documented as of this encounter
--- OUTSIDE RECORDS SUMMARY | 2024-11-14 10:18 | XMS_ITS | Encounter Summary ---
Author Organization [facility] Address [address] [place] [address]. [place], [place] [address] [place] [address] Care Team Providers Care Tractor Operator Battery Name Role Phone Pb Su MD Primary [...] Department Care Team (Latest Contact Info) Description 10/30/2013 Abstract [facility] Social History Tobacco Use Types [...] on filedocumented in this encounter Care Teams Tractor Operator Battery Relationship Specialty Start Date End Date Pb Su MD [address] [place], [place] [address] PCP - General 04/26/16 Pb Su MD [address] [place] [address] PCP - General 05/19/15 04/25/16 Pb Su MD [address] [place] [address] PCP - General 12/07/14 05/18/15 Pb Su MD [address] [place] [address] PCP - General 12/05/14 12/06/14 Pb Su MD [address] [place], [place] [address] PCP - General 03/23/14 12/04/14 Pb Su MD [address] [place] [address] PCP - General 03/21/14 03/22/14 Pb Su MD [address] [place] [address] PCP - General 03/16/14 03/20/14 Pb Su MD [address] [place], [place] [address] PCP - General 03/14/14 03/15/14 Pb Su MD [address] [place], [place] [address] PCP - General 03/09/14 03/13/14 Pb Su MD [address] [place], [place] [address] PCP - General 03/02/14 03/08/14 Pb Su MD [address] [place], [place] [address] PCP - General 02/28/14 03/01/14 Pb Su MD [address] [place] [address] PCP - General 02/25/14 02/27/14 Pb Su MD [address] [place] [address] PCP - General 02/23/14 02/24/14 Pb Su MD [address] [place] [address] PCP - General 02/17/14 02/22/14 Pb Su MD [address] [place] [address] PCP - General 11/02/13 02/16/14 Pb Su MD [address] [place] [address] PCP - General 09/30/13 11/01/13 documented as of this encounter
--- OUTSIDE RECORDS SUMMARY | 2024-11-14 10:18 | XMS_ITS | Encounter Summary ---
Author Organization [facility] Address [address] [place] [address]. [place], [place] [address] [place] [address] Care Team Providers Care Sound Ranging Crewmember Name Role Phone Pb Su MD Primary [...] Department Care Team (Latest Contact Info) Description 11/03/2013 Abstract [facility] Social History Tobacco Use Types Packs/Day Years Used Date Smoking Tobacco: Never Assessed Sex and Gender Information Value Date Recorded Sex Assigned at Not on file Legal Sex Male 7:22 PM CDT Gender Identity Not on file Sexual Orientation Not on file documented as of this encounter Progress Notes * bP Su MD - 11/03/2013 3:09 PM CST Verified Results Compr Metabolic Prof ( CMP ) 02Nov2013 09:55AM Pb Su Test Name Result Flag Reference Sodium (Na) 140 mmol/L 136-145 Potassium (K) 4.6 mmol/L 3.5-5.1 Chloride (Cl) 103 mmol/L 98-107 CREATININE 1.06 mg/dL 0.70-1.20 Carbon Dioxide (CO2) 29 mmol/L 22-29 Blood Urea Nitrogen (BUN) 13 mg/dL 8-23 Glomerular Filt Rate Calc >60 mL/min/1.73m'2 >60 >60 NOTE: eGFR is not calculated for patients <18 years of age. This is an estimated GFR (CKD EPI) and should not be used for calculating drug doses. mL/min/1.73m'2 Anion Gap 13 8-20 Glucose 89 mg/dL 70-99 Calcium 9.8 mg/dL 8.6-10.2 Total Bilirubin 0.5 mg/dL 0.2-1.2 AST/GOT 19 IU/L 0-40 ALT/GPT 25 IU/L 0-41 Alkaline Phosphatase (ALKP) 67 IU/L 40-129 Total Protein 7.3 g/dL 6.4-8.3 ALBUMIN 4.7 g/dL 3.5-5.2 Globulin, Calc 2.6 g/dL 2.3-3.6 A:G Ratio 1.8 1.0-2.0 Creatine Kinase ( CK ) ( CPK ) [id number] 09:55AM Pb Su Test Name Result Flag Reference Creatine Kinase (CK) 140 IU/L 39-308 Lipid Profile [id number] 09:55AM Pb Su Test Name Result Flag Reference Cholesterol 190 mg/dL <200 Triglycerides 211 mg/dL H <150 HDL Cholesterol 46 mg/dL L >59 LDL Cholesterol, Calculated 102 mg/dL H <100 Non HDL, Calc 144 mg/dL H <130 NOTE: WHEN THE TRIGLYCERIDES ARE >200 mg/dL, NON HDL C IS A SECONDARY TARGET OF THERAPY, WITH A GOAL 30 mg/dL HIGHER THAN THE IDENTIFIED LDL C GOAL. Cholesterol/HDL Ratio 4.1 0.0-4.5 VLDL Cholesterol 42 mg/dL 5-55 [facility] CONCENSUS REPORT RECOMMENDATIONS: ADULT CHILD LOW RISK: CHOLESTEROL <200 <170 TRIGLYCERIDE <150 --- HDL >=60 --- LDL <100 <110 BORDERLINE: CHOLESTEROL 200-239 170-199 TRIGLYCERIDE 150-199 --- HDL 40-59 --- LDL 100-159 110-129 HIGH RISK: CHOLESTEROL >=240 >=200 TRIGLYCERIDE >=200 --- HDL <40 --- LDL >=160 >=130 CTOR COMMUNICATIONS documented in this encounter Plan of Treatment Not on file documented as of this encounter Visit Diagnoses Not on filedocumented in this encounter Care Teams Sound Ranging Crewmember Relationship Specialty Start Date End Date Pb Su MD [address] [place] [address] PCP - General 04/26/16 Pb Su MD [address] [place], [place] [address] PCP - General 05/19/15 04/25/16 Pb Su MD [address] [place], [place] [address] PCP - General 12/07/14 05/18/15 Pb Su MD [address] [place], [place] [address] PCP - General 12/05/14 12/06/14 Pb Su MD [address] [place] [address] PCP - General 03/23/14 12/04/14 Pb Su MD [address] [place] [address] PCP - General 03/21/14 03/22/14 Pb Su MD [address] [place] [address] PCP - General 03/16/14 03/20/14 Pb Su MD [address] [place] [address] PCP - General 03/14/14 03/15/14 Pb Su MD [address] [place] [address] PCP - General 03/09/14 03/13/14 Pb Su MD [address] [place], [place] [address] PCP - General 03/02/14 03/08/14 Pb Su MD [address] [place], [place] [address] PCP - General 02/28/14 03/01/14 Pb Su MD [address] [place] [address] PCP - General 02/25/14 02/27/14 Pb Su MD [address] [place] [address] PCP - General 02/23/14 02/24/14 Pb Su MD [address] [place] [address] PCP - General 02/17/14 02/22/14 Pb Su MD [address] [place] [address] PCP - General 11/02/13 02/16/14 documented as of this encounter
--- OUTSIDE RECORDS SUMMARY | 2024-11-14 10:18 | XMS_ITS | Encounter Summary ---
Author Organization [facility] Address [address] [place] [address]. [place], [place] [address] [place] [address] Care Team Providers Care Chief Accountant Name Role Phone Pb Su MD Primary [...] Provider Pb Su MD Primary Care Provider [phone] Encounter Details Date Type Department Care Team (Late st Contact Info) Description 07/16/2013 Abstract [facility] Medical Group Multispecialty Care - [facility] [address] [place] [address] MakSeun anandDO [address] [place] [address] Social History Tobacco Use Types Packs/Day Years Used Date Smoking Tobacco: Never Assessed Sex and Gender Information Value Date Recorded Sex Assigned at Not on file Legal Sex Male 7:22 PM CDT Gender Identity Not on file Sexual Orientation Not on file documented as of this encounter Last Filed Vital Signs Vital Sign Reading Time Taken Comments Blood Pressure - - Pulse - - Temperature - - Respiratory Rate - - Oxygen Saturation - - Inhaled Oxygen Concentration - - Weight 100.2 kg (221 lb) 07/16/2013 11:17 AM CDT Height 182.9 cm (6') 07/16/2013 11:17 AM CDT Body Mass Index 29.97 07/16/2013 11:17 AM CDT documented in this encounter Progress Notes * Seun MakDO - 07/16/2013 11:10 AM CDT History of Present Illness PMD:Pb Su M.D. CHIEF COMPLAINT: Right knee pain. HISTORY OF PRESENT ILLNESS: The patient is here today for recurrence of right knee pain. He last was evaluated five months ago. His symptoms have been increased during the past one to two months. He has pain at nighttime. There is swelling, but there is no giving way or locking. Bending and squatting exacerbate the pain. He has been on Relafen in the past but currently is on no medications. Activity modifications improve his symptoms. He has no other extremity complaints. PHYSICAL EXAMINATION: General: This is a healthy-appearing 48-year-old male. There is no evidence for acute trauma or illness. Psychiatric: The patient is alert and oriented times three. He has a normal mood and affect. He is very pleasant and cooperative. Gait: The patient is ambulatory in the office without any assistive device. Respiratory: Respirations are even and unlabored. He does not use any accessory muscles for breathing. Circulation: There is no peripheral edema or acute circulatory compromise to the extremities. Neurologic: Sensation and motor functions are grossly intact to the extremities. Skin: Intact to the extremities. No lacerations or skin infections are noted. Musculoskeletal: Right knee: The patient has well-circumscribed region of swelling in the parapatellar bursa overlying the patellar tendon. This is nontender and then with benign features. There is no erythema or evidence for infection. He has tenderness in the patellofemoral region as well as the insertion of the quadriceps tendon. The medial and lateral compartments are nontender. There is no click with Mc Corey's. He has a good endpoint with anterior and posterior drawers and David's has a good endpoint. There is no instability with testing of the collateral ligaments. IMPRESSION: 1.Chondromalacia patella, right knee, with fissure. 2.Prepatellar bursitis, right knee. RECOMMENDATIONS: Treatment options were discussed. He previously did very well with an injection. He would therefore like to proceed with a second injection. The right knee is injected using sterile technique with Betadine scrub and alcohol prep using 8 cc of Marcaine and 2 cc of Celestone. A sterile Band-Aid is applied. He tolerated the procedure well and no complications were noted. He will continue with the home exercises and we will renew his prescription for Relafen. He may apply ice afteractivities. Followup will be in four weeks. Additional measures are possibilities pending his progress. His prepatellar region is currently asymptomatic, although excision is a possibility if there we re increasing symptoms. All questions were answered. EVON/ROSAURA/mp Job [id number] Active Problems 1. Atrial Fibrillation 427.31 2. Fatigue 780.79 3. Hyperlipidemia 272.4 4. Joint Pain In The Right Knee 719.46 5. Joint Pain, Localized In The Knee 719.46 6. Lower Back Pain 724.2 7. Normal Routine History And Physical V70.0 8. Premature Ventricular Contractions 427.69 9. Visit For: Screening Exam Malignant Neoplasm Prostate V76.44 10. Vitamin D Deficiency 268.9 Past Medical History 1. History of Adult Sleep Apnea 780.57 2. History of Arthritis V13.4 3. History of Hypercholesterolemia 272.0 4. History of Primary Snoring 786.09 Social History ?? Alcohol Use (History) ?? Former Smoker V15.82 Current Meds 1. Atorvastatin Calcium 20 MG Oral Tablet; TAKE 1 TABLET BY MOUTH AT BEDTIME; Therapy: [id number] to (Evaluate:24Jun2014); Last Rx:[id number] 2. Claritin 10 MG Oral Tablet; Therapy: (Recorded:29Jun2013) to Allergies 1. Acetaminophen-Codeine #3 TABS Vitals [id number] 11:17AM BMI Calculated 29.94 BSA Calculated 2.22 Height 6 ft Weight 221 lb Assessment 1. Joint Pain In The Right Knee 719.46 2. Joint Pain, Localized In The Knee 719.46 Plan 1. Betamethasone Sod Phos & Acet 6 (3-3) MG/ML Injection Suspension; INJECT 2 ML Intra-articular; Done: 16Jul2013 12:29PM; Status: COMPLETE 2. Nabumetone 500 MG Oral Tablet; TAKE 2 TABLETS DAILY; Therapy: [id number] to (Evaluate:14Oct2013) Requested for: 16Jul2013; Last Rx:[id number]; Edited Signatures Electronically signed by : Seun Mak D.O.; Jul 16 2013 12:12PM (Author) Electronically signed by : Seun Mak D.O.; Jul 22 2013 6:00PM (Author) CARE ASSOCIATE documented in this encounter Plan of Treatment Not on file documented as of this encounter Visit Diagnoses Not on filedocumented in this encounter Care Teams Chief Accountant Relationship Specialty Start Date End Date Pb Su MD [address] [place], [place] [id number] PCP - General 04/26/16 Pb Su MD [address] [place], [place] [id number] PCP - General 05/19/15 04/25/16 Pb Su MD [address] [place] [address] PCP - General 12/07/14 05/18/15 Pb Su MD [address] [place], [place] [address] PCP - General 12/05/14 12/06/14 Pb Su MD [address] [place], [place] [address] PCP - General 03/23/14 12/04/14 Pb Su MD [address] [place], [place] [address] PCP - General 03/21/14 03/22/14 Pb Su MD [address] [place] [address] PCP - General 03/16/14 03/20/14 Pb Su MD [address] [place], [place] [address] PCP - General 03/14/14 03/15/14 Pb Su MD [address] [place], [place] [address] PCP - General 03/09/14 03/13/14 Pb Su MD [address] [place], [place] [address] PCP - General 03/02/14 03/08/14 Pb Su MD [address] [place] [address] PCP - General 02/28/14 03/01/14 Pb Su MD [address] [place] [address] PCP - General 02/25/14 02/27/14 Pb Su MD [address] [place] [address] PCP - General 02/23/14 02/24/14 Pb Su MD [address] [place] [address] PCP - General 02/17/14 02/22/14 Pb Su MD [address] [place] [address] PCP - General 11/02/13 02/16/14 Pb Su MD [address] [place] [address] PCP - General 09/30/13 11/01/13 Pb Su MD [address] [place] [address] PCP - General 06/10/13 09/29/13 documented as of this encounter
--- OUTSIDE RECORDS SUMMARY | 2024-11-14 10:18 | XMS_ITS | Encounter Summary ---
Author Organization [facility] Address [address] [place] [address]. [place], [place] [address] [place] [address] Care Team Providers Care Rn Clinical Coordinator Name Role Phone Pb Su MD [...] Care Team (Late st Contact Info) Description 09/30/2013 Abstract [facility] [address] [place], [place] [address] Pb Su MD [address] [place], [place] [id number] Social History Tobacco Use Types Packs/Day Years Used Date Smoking Tobacco: Never Assessed Sex and Gender Information Value Date Recorded Sex Assigned at Not on file Legal Sex Male 7:22 PM CDT Gender Identity Not on file Sexual Orientation Not on file documented as of this encounter Plan of Treatment Not on file documented as of this encounter Visit Diagnoses Diagnosis Osteoarthrosis Osteoarthrosis, unspecified whether generalized or localized, unspecified site documented in this encounter Care Teams Rn Clinical Coordinator Relationship Specialty Start Date End Date Pb Su MD [address] [place], [place] [address] PCP - General 04/26/16 Pb Su MD [address] [place], [place] [address] PCP - General 05/19/15 04/25/16 Pb Su MD [address] [place], [place] [address] PCP - General 12/07/14 05/18/15 Pb Su MD [address] [place], [place] [id number] PCP - General 12/05/14 12/06/14 Pb Su MD [address] [place] [address] PCP - General 03/23/14 12/04/14 Pb Su MD [address] [place] [address] PCP - General 03/21/14 03/22/14 Pb Su MD [address] [place], [place] [address] PCP - General 03/16/14 03/20/14 Pb Su MD [address] [place] [address] PCP - General 03/14/14 03/15/14 Pb Su MD [address] [place] [address] PCP - General 03/09/14 03/13/14 Pb Su MD [address] [place] [address] PCP - General 03/02/14 03/08/14 Pb Su MD [address] [place] [address] PCP - General 02/28/14 03/01/14 Pb Su MD [address] [place] [address] PCP - General 02/25/14 02/27/14 Pb Su MD [address] [place] [address] PCP - General 02/23/14 02/24/14 Pb Su MD [address] [place], [place] [address] PCP - General 02/17/14 02/22/14 Pb Su MD [address] [place] [address] PCP - General 11/02/13 02/16/14 Pb Su MD [address] [place], [place] [address] PCP - General 09/30/13 11/01/13 documented as of this encounter
--- OUTSIDE RECORDS SUMMARY | 2024-11-14 10:18 | XMS_ITS | Encounter Summary ---
Author Organization [facility] Address [address] [place] [address]. [place], [place] [address] [place] [address] Care Team Providers Care Rug Dyer Helper Name Role Phone Pb Su MD Primary [...] (Late st Contact Info) Description 11/02/2013 Abstract [facility] [address] [place] [place] [address] Pb Su MD [address] [place] [address] Social History Tobacco Use Types Packs/Day Years Used Date Smoking Tobacco: Never Assessed Sex and Gender Information Value Date Recorded Sex Assigned at Not on file Legal Sex Male 7:22 PM CDT Gender Identity Not on file Sexual Orientation Not on file documented as of this encounter Plan of Treatment Not on file documented as of this encounter Visit Diagnoses Diagnosis Other and unspecified hyperlipidemia documented in this encounter Care Teams Rug Dyer Helper Relationship Specialty Start Date End Date Pb Su MD [address] [place], [place] [address] PCP - General 04/26/16 Pb Su MD [address] [place], [place] [address] PCP - General 05/19/15 04/25/16 Pb Su MD [address] [place] [address] PCP - General 12/07/14 05/18/15 Pb Su MD [address] [place] [address] PCP - General 12/05/14 12/06/14 Pb Su MD [address] [place] [address] PCP - General 03/23/14 12/04/14 Pb Su MD [address] [place] [address] PCP - General 03/21/14 03/22/14 Pb Su MD [address] [place] [address] PCP - General 03/16/14 03/20/14 Pb Su MD [address] [place], [place] [address] PCP - General 03/14/14 03/15/14 Pb Su MD [address] [place] [address] PCP - General 03/09/14 03/13/14 Pb Su MD [address] [place] [address] PCP - General 03/02/14 03/08/14 Pb Su MD [address] [place] [address] PCP - General 02/28/14 03/01/14 Pb Su MD [address] [place], [place] [address] PCP - General 02/25/14 02/27/14 Pb Su MD [address] [place] [address] PCP - General 02/23/14 02/24/14 Pb Su MD [address] [place] [address] PCP - General 02/17/14 02/22/14 Pb Su MD [address] [place], [place] [address] PCP - General 11/02/13 02/16/14 documented as of this encounter
--- OUTSIDE RECORDS SUMMARY | 2024-11-14 10:18 | XMS_ITS | Encounter Summary ---
Author Organization [facility] Address [address] [place] [address]. [place], [place] [address] [place] [address] Care Team Providers Care Drier Tender Naphthalene Name Role Phone Pb Su MD Primary [...] Department Care Team (Latest Contact Info) Description 07/08/2013 Abstract [facility] Medical Group Social [...] on filedocumented in this encounter Care Teams Drier Tender Naphthalene Relationship Specialty Start Date End Date Pb Su MD [address] [place], [place] [address] PCP - General 04/26/16 Pb Su MD [address] [place], [place] [address] PCP - General 05/19/15 04/25/16 Pb Su MD [address] [place], [place] [address] PCP - General 12/07/14 05/18/15 Pb Su MD [address] [place] [address] PCP - General 12/05/14 12/06/14 Pb Su MD [address] [place] [address] PCP - General 03/23/14 12/04/14 Pb Su MD [address] [place] [address] PCP - General 03/21/14 03/22/14 Pb Su MD [address] [place] [address] PCP - General 03/16/14 03/20/14 Pb Su MD [address] [place] [address] PCP - General 03/14/14 03/15/14 Pb Su MD [address] [place], [place] [address] PCP - General 03/09/14 03/13/14 Pb Su MD [address] [place] [address] PCP - General 03/02/14 03/08/14 Pb Su MD [address] [place] [address] PCP - General 02/28/14 03/01/14 Pb Su MD [address] [place] [address] PCP - General 02/25/14 02/27/14 Pb Su MD [address] [place] [address] PCP - General 02/23/14 02/24/14 Pb Su MD [address] [place] [address] PCP - General 02/17/14 02/22/14 Pb Su MD [address] [place] [address] PCP - General 11/02/13 02/16/14 Pb Su MD [address] [place] [address] PCP - General 09/30/13 11/01/13 Pb Su MD [address] [place], [place] [address] PCP - General 06/10/13 09/29/13 documented as of this encounter
--- OUTSIDE RECORDS SUMMARY | 2024-11-14 10:18 | XMS_ITS | Encounter Summary ---
Author Organization [facility] Address [address] [place] [address]. [place], [place] [address] [place] [address] Care Team Providers Care Clinical Social Work Therapist Name Role Phone Pb Su MD Primary [...] Department Care Team (Latest Contact Info) Description 06/13/2013 Abstract [facility] Medical [facility] Social History Tobacco Use Types Packs/Day Years Used Date Smoking Tobacco: Never Assessed Sex and Gender Information Value Date Recorded Sex Assigned at Not on file Legal Sex Male 7:22 PM CDT Gender Identity Not on file Sexual Orientation Not on file documented as of this encounter Progress Notes * Pb Su MD - 06/13/2013 4:55 PM CDT Verified Results Vitamin D 25 - Hydroxy [id number] 10:05AM Pb Su Test Name Result Flag Reference Vitamin D 25-Hydroxy 28 NG/ML L 30-100 INTERPRETATION DEFICIENT <20 INSUFFICIENT 20-30 SUFFICIENT 30-100 POTENTIAL INTOXICATION >100 TESTING PERFORMED AT [facility], A MEMBER OF THE [facility]. EWATER ANALYST documented in this encounter Plan of Treatment Not on file documented as of this encounter Visit Diagnoses Not on filedocumented in this encounter Care Teams Clinical Social Work Therapist Relationship Specialty Start Date End Date Pb Su MD [address] [place], [place] [id number] PCP - General 04/26/16 Pb Su MD [address] [place], [place] [address] PCP - General 05/19/15 04/25/16 Pb Su MD [address] [place], [place] [address] PCP - General 12/07/14 05/18/15 Pb Su MD [address] [place] [address] PCP - General 12/05/14 12/06/14 Pb Su MD [address] [place] [address] PCP - General 03/23/14 12/04/14 Pb Su MD [address] [place] [address] PCP - General 03/21/14 03/22/14 Pb Su MD [address] [place] [address] PCP - General 03/16/14 03/20/14 Pb Su MD [address] [place] [address] PCP - General 03/14/14 03/15/14 Pb Su MD [address] [place], [place] [address] PCP - General 03/09/14 03/13/14 Pb Su MD [address] [place], [place] [address] PCP - General 03/02/14 03/08/14 Pb Su MD [address] [place] [address] PCP - General 02/28/14 03/01/14 Pb Su MD [address] [place] [address] PCP - General 02/25/14 02/27/14 Pb Su MD [address] [place], [place] [address] PCP - General 02/23/14 02/24/14 Pb Su MD [address] [place], [place] [address] PCP - General 02/17/14 02/22/14 Pb Su MD [address] [place] [address] PCP - General 11/02/13 02/16/14 Pb Su MD [address] [place] [address] PCP - General 09/30/13 11/01/13 Pb Su MD [address] [place], [place] [address] PCP - General 06/10/13 09/29/13 documented as of this encounter
--- OUTSIDE RECORDS SUMMARY | 2024-11-14 10:18 | XMS_ITS | Encounter Summary ---
Author Organization [facility] Address [address] [place] [address]. [place], [place] [address] [place] [address] Care Team Providers Care Strategic Planning Analyst Name Role Phone Pb Su MD [...] Team (Latest Contact Info) Description 09/30/2013 Abstract [facility] Pb Su MD [address] [place] [address] Social History Tobacco Use Types Packs/Day Years [...] Priority Date/Time Associated Diagnosis Comments XR HAND RT 3V Routine 09/30/2013 8:42 AM KETTLE LOADER documented in this encounter Results * XR HAND RT 3V (09/30/2013 8:42 AM KETTLE LOADER) Anatomical Region Laterality Modality Hand Radiographic Clary ging 09/30/2013 8:42 AM KETTLE LOADER 09/30/2013 8:42 AM KETTLE LOADER Narrative 09/30/2013 10:51 AM KETTLE LOADER AVA CEDILLO JR MD: PB SU MD ?? ACCT: [id number] ?? : 1965 PT TYPE: REG CLI ?? SEX: M ORD SITE: [facility] OUTPT IMAGING ? STUDY DATE REPORT # PROCEDURE CODE PROCEDURE ?? 09/30/13 [id number] XR HAND MINIMUM 3 VIEW RT ? EXTORDERID ? [id number] ? ACCESSION NUMBER ?? [id number] ?CHART DOCUMENT ? IMPRESSION: ? NO ACUTE OSSEOUS ABNORMALITIES. ? NO SIGNIFICANT FEATURES OF ARTHRITIS. ? HISTORY: ??PAIN IN BOTH HANDS X2 TO 3 WEEKS, HISTORY OF ARTHRITIS IN THE ?? NECK. ? THREE VIEWS OF THE RIGHT HAND ? FINDINGS: ??NO ACUTE FRACTURE DISLOCATION. ??JOINT SPACES MAINTAINED. ??NO ?? DESTRUCTIVE OSSEOUS LYTIC OR SCLEROTIC LESIONS. ??NO RADIOPAQUE FOREIGN ?? BODIES. ? ELECTRONICALLY SIGNED BY: ?? KEL HENDRICKSON M.D. 09/30/2013 10:50 ?? KEL HENDRICKSON M.D. ? D: ??09/30/2013 ??8:57 A ??#[id number] ?? T: ??09/30/2013 ??9:15 A/MA ? CC: ?PB SU M.D. ? Radiology image is available. Click on Image Link above. Procedure Note Vahe Chatterjee MD - 09/17/2018 AV[facility] CEDILLO [facility] MD: PB SU MD ACCT: [id number] : 1965 PT TYPE: REG CLI SEX: M ORD SITE: [facility] OUTPT IMAGING STUDY DATE REPORT # PROCEDURE CODE PROCEDURE 09/30/13 [id number] XR HAND MINIMUM 3 VIEW RT EXTORDERID [id number] ACCESSION NUMBER [id number] CHART DOCUMENT IMPRESSION: NO ACUTE OSSEOUS ABNORMALITIES. NO SIGNIFICANT FEATURES OF ARTHRITIS. HISTORY: PAIN IN BOTH HANDS X2 TO 3 WEEKS, HISTORY OF ARTHRITIS IN THE NECK. THREE VIEWS OF THE RIGHT HAND FINDINGS: NO ACUTE FRACTURE DISLOCATION. JOINT SPACES MAINTAINED. NO DESTRUCTIVE OSSEOUS LYTIC OR SCLEROTIC LESIONS. NO RADIOPAQUE FOREIGN BODIES. ELECTRONICALLY SIGNED BY: KEL HENDRICKSON M.D. 09/30/2013 10:50 KEL HENDRICKSON M.D. A #[id number] A/MATILDE CC: PB SU M.D. Radiology image is available. Click on Image Link above. us Pb Su MD GENERAL IMAGING Final Resul t documented in this encounter Visit Diagnoses Not on filedocumented in this encounter Care Teams Strategic Planning Analyst Relationship Specialty Start Date End Date Pb Su MD [address] [place] [address] PCP - General 04/26/16 Pb Su MD [address] [place] [address] PCP - General 05/19/15 04/25/16 Pb Su MD [address] [place] [address] PCP - General 12/07/14 05/18/15 Pb Su MD [address] [place] [address] PCP - General 12/05/14 12/06/14 Pb Su MD [address] [place] [address] PCP - General 03/23/14 12/04/14 Pb Su MD [address] [place] [address] PCP - General 03/21/14 03/22/14 Pb Su MD [address] [place], [place] [address] PCP - General 03/16/14 03/20/14 Pb Su MD [address] [place], [place] [address] PCP - General 03/14/14 03/15/14 Pb Su MD [address] [place] [address] PCP - General 03/09/14 03/13/14 Pb Su MD [address] [place] [address] PCP - General 03/02/14 03/08/14 Pb Su MD [address] [place], [place] [address] PCP - General 02/28/14 03/01/14 Pb Su MD [address] [place], [place] [address] PCP - General 02/25/14 02/27/14 Pb Su MD [address] [place], [place] [address] PCP - General 02/23/14 02/24/14 Pb Su MD [address] [place] [address] PCP - General 02/17/14 02/22/14 Pb Su MD [address] [place], [place] [address] PCP - General 11/02/13 02/16/14 Pb Su MD [address] [place] [address] PCP - General 09/30/13 11/01/13 documented as of this encounter
--- OUTSIDE RECORDS SUMMARY | 2024-11-14 10:18 | XMS_ITS | Encounter Summary ---
Author Organization [facility] Address [address] [place] [address]. [place], [place] [id number] [place] [address] Care Team Providers Care Plate Cleaner Name Role Phone Pb Su MD Primary Care Provider [phone] Pb Su MD Primary Care Provider Pb [...] (Late st Contact Info) Description 09/30/2013 Abstract [facility] Family Medicine - [address], [address] [place] [id number] Pb Su MD [address] [place] [address] Social History Tobacco Use Types Packs/Day Years Used Date Smoking Tobacco: Never Assessed Sex and Gender Information Value Date Recorded Sex Assigned at Not on file Legal Sex Male 7:22 PM CDT Gender Identity Not on file Sexual Orientation Not on file documented as of this encounter Last Filed Vital Signs Vital Sign Reading Time Taken Comments Blood Pressure 102/68 09/30/2013 7:51 AM BRANCH LENDING MANAGER Pulse 60 09/30/2013 7:51 AM BRANCH LENDING MANAGER Temperature - - Respiratory Rate - - Oxygen Saturation - - Inhaled Oxygen Concentration - - Weight 102.1 kg (225 lb) 09/30/2013 7:51 AM BRANCH LENDING MANAGER Height - - Body Mass Index 30.52 08/19/2013 3:06 PM CDT documented in this encounter Progress Notes * Pb Su MD - 09/30/2013 3:30 PM CST Verified Results XR HAND MINIMUM 3 VIEW RT ( Routine ) 30Sep2013 08:57AM Pb Su Test Name Result Flag Reference AVA CEDILLO JR ORDERING MD: PB SU MD ACCT: [id number] : 1965 PT TYPE: REG CLI SEX: M ORD SITE: [facility] OUTPT IMAGING STUDY DATE REPORT # PROCEDURE CODE PROCEDURE 09/30/13 [id number] XR HAND MINIMUM 3 VIEW RT EXTORDERID [id number] ACCESSION NUMBER [id number] CHART DOCUMENT IMPRESSION: NO ACUTE OSSEOUS ABNORMALITIES. [...] M.D. 09/30/2013 10:50 KEL HENDRICKSON M.D. A #[id number] A/MATILDE CC: PB SU M.D. Radiology image is available. Click on Image Link above. XR HAND MINIMUM 3 VIEW LT ( Routine ) 30Sep2013 08:56AM Pb Su Test Name Result Flag Reference AVA CEDILLO JR MD: PB SU MD ACCT: [id number] : 1965 PT TYPE: REG CLI SEX: M ORD SITE: [facility] OUT IMAGING STUDY DATE REPORT # PROCEDURE CODE PROCEDURE 09/30/13 [id number] XR HAND MINIMUM 3 VIEW LT EXTORDERID [id number] ACCESSION NUMBER [id number] CHART DOCUMENT IMPRESSION: NO ACUTE OSSEOUS ABNORMALITIES. NO SIGNIFICANT FEATURES OF ARTHRITIS. HISTORY: PAIN IN BOTH HANDS X3 WEEKS. HISTORY OF ARTHRITIS. THREE VIEWS LEFT HAND FINDINGS: NO ACUTE FRACTURE OR DISLOCATION. JOINT SPACES ARE PRESERVED. NO DESTRUCTIVE OSSEOUS, LYTIC, OR SCLEROTIC LESION. NO RADIOPAQUE FOREIGN BODIES. ELECTRONICALLY SIGNED BY: KEL HENDRICKSON M.D. 09/30/2013 10:50 KEL HENDRICKSON M.D. A #[id number] A/MA CC: PB SU M.D. Radiology image is available. Click on Image Link above. CH LENDING MANAGER * Pb Su MD - 09/30/2013 7:30 AM CST Reason For Visit Acute Visit Chief Complaint Here today for bilateral hand pain. Pain level is a 5. History of Present Illness The patient is being seen for follow-up of a hand problem affecting both hands. The patient is ambidextrous. Current Symptoms include pain and stiffnessno hand asset analyst weakness, no decreased pinch strength, no decreased range of motion, no finger bruising, no wrist bruising, no swelling, no burning, no tenderness, no numbness, no tingling and no symptoms of trigger finger. The symptom(s) occur(s) in the lefthand and in the right hand. There is no radiation. The patient describes the pain as dull and aching. The onset was sudden. The symptom(s) occur constantly. The patient describes symptom(s) as moderate in severity and worsening. Exacerbating factors include use of the hand and repetitive use. Relieving factors include restricted activity. No associated symptoms are reported. Current treatment includes nonsteroidal anti-inflammatory drugs. By report, there is poor symptom control. Medical wrist and hand history includes osteoarthritis which continues to be symptomatic. The patient states his osteoarthritis has been [...] yet atgoal. Exercise: not yet at goal. The patient is being seen for a health maintenance evaluation. Social History: Household members include spouse. He is . 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 The patient has never smoked cigarettes and [...] tobacco. He denies alcohol use. Reproductive health:. The patient is sexually active. Screening: Cancer screening reviewed and updated. Metabolic screening reviewed and updated. Risk screening reviewed and updated. The patient is being seen for a [...] heatand physical therapy. The patient states his hyperlipidemia has been [...] 274mg/dl TGL 214mg/dl HDL 43mg/dl LDL 188mg/dl. The patient is being seen for follow-up [...] history: previous back injury. 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 The patient is currently able to do activities of daily living without limitations. Evaluation and Treatment History: He was previously evaluated by me. Past treatment has included activity modification, heat and physical therapy. Review of Systems Constitutional: fatigue. Head and [...] 1 TABLET BY MOUTH AT BEDTIME; Therapy: [id number] to (Evaluate:24Jun2014); Last Rx:[id number] 2. Claritin 10 MG Oral Tablet; Therapy: (Recorded:29Jun2013) to 3. Nabumetone 500 MG Oral Tablet; TAKE 2 TABLETS DAILY; Therapy: [id number] to (Evaluate:14Oct2013) Requested for: [id number]; Last Rx:[id number] Allergies 1. Acetaminophen-Codeine #3 TABS Vitals 30Sep2013 07:51AM Temperature 98.8 F, Oral Heart Rate 60 Pulse Quality Normal Respiration 14 Respiration Quality Normal Systolic 102, LUE, Sitting Diastolic 68, LUE, Sitting BMI Calculated 30.48 BSA Calculated 2.24 Weight 225 lb Pain Scale 5 Physical Exam Right Hand: Appearance: Normal. Fingernail Tenderness: None. Left Hand: Appearance: Normal. Fingernail Constitutional General appearance: No acute distress, well appearing and well nourished. Eyes Conjunctiva and lids: No swelling, erythema, or discharge. Pupils and irises: Equal, round and reactive to light. Ears, Nose, Mouth, and Throat External inspection of ears and nose: Normal. Otoscopic examination: Tympanic membrance translucent with normal light reflex. Canals patent without erythema. Oropharynx: Normal with no erythema, edema, exudate or lesions. Pulmonary Respiratory effort: No increased work of breathing or signs of respiratory distress. Auscultation of lungs: Clear to auscultation. Cardiovascular Palpation of heart: Normal PMI, no thrills. Auscultation of heart: Normal rate and rhythm, normal S1 and S2, without murmurs. Examination of extremities for edema and/or varicosities: Normal. Abdomen Abdomen: Non-tender, no masses. Liver and spleen: No hepatomegaly or splenomegaly. Lymphatic Palpation of lymph nodes in neck: No lymphadenopathy. Musculoskeletal Gait and station: Normal. Skin Skin and subcutaneous tissue: Normal without rashes or lesions. Neurologic Cranial nerves: Cranial nerves 2-12 intact. Reflexes: 2+ and symmetric. Sensation: No sensory loss. Psychiatric Orientation to person, place and time: Normal. Mood and affect: Normal. Results/Data XR HAND MINIMUM 3 VIEW LT ( Routine ) 30Sep2013 08:48AM Pb Su Test Name Result Flag Reference AVA CEDILLO JR MD: PB SU MD ACCT: [id number] : 1965 PT TYPE: REG CLI SEX: M ORD SITE: [facility] IMAGING STUDY DATE REPORT # PROCEDURE CODE PROCEDURE 09/30/13 [id number] XR HAND MINIMUM 3 VIEW LT EXTORDERID [id number] ACCESSION NUMBER [id number] CHART DOCUMENT IMPRESSION: NO ACUTE OSSEOUS ABNORMALITIES. NO SIGNIFICANT FEATURES OF ARTHRITIS. HISTORY: PAIN IN BOTH HANDS X3 WEEKS. HISTORY OF ARTHRITIS. THREE VIEWS LEFT HAND FINDINGS: NO ACUTE FRACTURE OR DISLOCATION. JOINT SPACES ARE PRESERVED. NO DESTRUCTIVE OSSEOUS, LYTIC, OR SCLEROTIC LESION. NO RADIOPAQUE FOREIGN BODIES. ELECTRONICALLY SIGNED BY: KEL HENDRICKSON M.D. 09/30/2013 10:50 KEL HENDRICKSON M.D. A #[id number] A/MATILDE CC: PB SU M.D. Radiology image is available. Click on Image Link above. XR HAND MINIMUM 3 VIEW RT ( Routine ) 30Sep2013 08:42AM Pb Su Test Name Result Flag Reference NGUYENAVA RYAN ALEX MD: PB SU MD ACCT: [id number] : 1965 PT TYPE: REG CLI SEX: M ORD SITE: [facility] OUTPT IMAGING STUDY DATE REPORT # PROCEDURE CODE PROCEDURE 09/30/13 [id number] XR HAND MINIMUM 3 VIEW RT EXTORDERID [id number] ACCESSION NUMBER [id number] CHART DOCUMENT IMPRESSION: NO ACUTE OSSEOUS ABNORMALITIES. [...] M.D. 09/30/2013 10:50 KEL HENDRICKSON M.D. A #[id number] Latisha/MATILDE CC: PB SU M.D. Radiology image is available. Click on Image Link above. plane films: mild degenerative changes Assessment 1. Osteoarthritis 715.90 2. Hyperlipidemia 272.4 3. Fatigue 780.79 4. Lower Back Pain 724.2 Pain In The Hands 729.5 Plan 1. XR HAND 2 VIEW LT Requested for: 30Sep2013 Ordered; For: Osteoarthritis (715.90); Ordered By: Pb Su Perform: . [facility] Radiology Order Comments: increasing hand/finger pain/stiffness: osteoarthritis Due: 07Oct2013 2. XR HAND 2 VIEW RT Requested for: 30Sep2013 Ordered; For: Osteoarthritis (715.90); Ordered By: Pb Su Perform: . [facility] Due: 07Oct2013 3. Call if: The pain is not better in 7 days. Done: 03Oct2013 Ordered; For: Osteoarthritis (715.90); Ordered By: Pb Su 4. Call if: The pain seems worse. Done: 03Oct2013 Ordered; For: Osteoarthritis (715.90); Ordered By: Pb Su 5. Call if: The symptoms are not better in 7 days. Done: 03Oct2013 Ordered; For: Osteoarthritis (715.90); Ordered By: Pb Su 6. Call if: The symptoms seem worse. Done: 03Oct2013 Ordered; For: Osteoarthritis (715.90); Ordered By: Pb Su 7. Call if: You feel too sick or weak to get out of bed. Done: 03Oct2013 Ordered; For: Osteoarthritis (715.90); Ordered By: Pb Su 8. Call if: Your joints are red or painful. Done: 03Oct2013 Ordered; For: Osteoarthritis (715.90); Ordered By: Pb Su 9. Call if: Your leg is numb, cold, or tingling. Done: 03Oct2013 Ordered; For: Osteoarthritis (715.90); Ordered By: Pb Su 10. Call if: Your symptoms do not improve after you have started taking your medication. Done: 03Oct2013 Ordered; For: Osteoarthritis (715.90); Ordered By: Pb Su 11. Call 911 if: Your temperature is greater than 103F. Done: 03Oct2013 Ordered; For: Osteoarthritis (715.90); Ordered By: Pb Su 12. Dairy foods are not the only way to get calcium in your diet. Many other foods contain calcium. Done: 03Oct2013 Ordered; For: Osteoarthritis (715.90); Ordered By: Pb Su 13. Eat foods that are high in calcium. Done: 03Oct2013 Ordered; For: Osteoarthritis (715.90); Ordered By: Pb Su 14. Stretch and warm up your muscles during the first 10 minutes , then cool down your muscles for the last 10 minutes of exercise. Done: 03Oct2013 Ordered; For: Osteoarthritis (715.90); Ordered By: Pb Su 15. We recommend that you get 400 IU of Vitamin D each day. Done: 03Oct2013 Ordered; For: Osteoarthritis (715.90); Ordered By: Pb Su Occupational Therapy Referral Outpatient Consult for adult Status: Need Information - Financial Authorization Requested for: 30Sep2013 Ordered; For: Pain In The Hands (729.5); Ordered By: Pb Su Performed: Order Comments: 48yo male with bilateral hand pain> PIP,DIP >Joints! Request OT services at [facility] for eval and treatment! Due: 14Oct2013 Discussion/Summary Summary: 48 yo male with multiple somatic complaints-addressed hand, back pain, osteo-arthritis. Impression: health maintenance visit. Currently, he eats an adequate diet. Prostate cancer screening: the risks and benefits of prostate cancer screening were discussed, prostate cancer screening is current and PSA was ordered. Testicular cancer screening: the risks and benefits of testicular cancer screening were discussed and testicular cancer screening is current. Colorectal cancer screening: the risks and benefits of colorectal cancer screening were discussed, colorectal cancer screening iscurrent and fecal occult blood testing is needed every year. Screening lab work includes glucose and lipid profile. The risks and benefits of immunizations were discussed. He was advised to be evaluat ed by an travel writer and a dentist. Advice and education were given regarding nutrition, aerobic exercise, weight bearing exercise, calcium supplements, vitamin D supplements, sunscreen use and seat belt use. Patient discussion: discussed with the patient. Signatures Electronically signed by : Pb Su M.D.; Oct 03 2013 11:06AM (Author) CH LENDING MANAGER documented in this encounter Plan of Treatment Not on file documented as of this encounter Procedures Procedure Name Priority Date/Time Associated Diagnosis Comments COMPREHENSIVE METABOLIC PANEL Routine 11/02/2013 9:55 AM BRANCH LENDING MANAGER LIPID PANEL Routine 11/02/2013 9:55 AM BRANCH LENDING MANAGER CK (CPK) Routine 11/02/2013 9:55 AM BRANCH LENDING MANAGER documented in this encounter Results * CK (CPK) (11/02/2013 9:55 AM BRANCH LENDING MANAGER) CPK 140 39 - 308 IU/L [facility] TO EPIC CONVERSION 11/02/2013 9:55 AM BRANCH LENDING MANAGER 11/02/2013 9:55 AM BRANCH LENDING MANAGER Narrative [facility] TO [facility] CONVERSION - 11/02/2013 4:43 PM BRANCH LENDING MANAGER Result Communication: Call patient with results us Pb Su MD LABORATORY Final Resul t [facility] TO [facility]IC CONVERSION * (ABNORMAL) LIPID PANEL (11/02/2013 9:55 AM BRANCH LENDING MANAGER) CHOLESTEROL 190 <200 mg/dL [facility] TO EPIC CONVERSION TRIGLYCERIDES 211(H) <150 mg/dL [facility] TO [facility]IC CONVERSION HDL 46(L) >59 mg/dL [facility] TO [facility] CONVERSION LDL (CALCULATED) 102(H) <100 mg/dL [facility] TO EPIC CONVERSION NON HDL CHOLESTEROL 144(H) <130 mg/dL [facility] TO [facility] CONVERSION Comment: Result Comment: NOTE: WHEN THE TRIGLYCERIDES ARE >200 mg/dL, NON HDL C IS A SECONDARY TARGET OF THERAPY, WITH A GOAL 30 mg/dL HIGHER THAN THE IDENTIFIED LDL C GOAL. CHOL/HDL RATIO 4.1 0.0 - 4.5 [facility] TO EPIC CONVERSION VLDL CHOLESTEROL (LMP) 42 5 - 55 mg/dL [facility] TO EPIC [...] ? >=160 ?>=130 [facility] TO EPIC CONVERSION 11/02/2013 9:55 AM BRANCH LENDING MANAGER 11/02/2013 9:55 AM BRANCH LENDING MANAGER Narrative [facility] TO EPIC CONVERSION - 11/02/2013 4:43 PM BRANCH LENDING MANAGER Result Communication: Call patient with results us Pb Su MD LABORATORY Final Resul t [facility] TO EPIC CONVERSION * COMPREHENSIVE METABOLIC PANEL (11/02/2013 9:55 AM BRANCH LENDING MANAGER) SODIUM S/P/B 140 136 - 145 mmol/L [facility] TO EPIC CONVERSION POTASSIUM S/P/B 4.6 3.5 - 5.1 mmol/L [facility] TO EPIC CONVERSION CHLORIDE S/P/B 103 98 - 107 mmol/L [facility] TO EPIC CONVERSION CO2 29 22 - 29 mmol/L [facility] TO EPIC CONVERSION ANION GAP 13 8 - 20 [facility] T O EPIC CONVERSION BUN 13 8 - 23 mg/dL [facility] TO EPIC [...] mL/min/1 .73m'2 [facility] TO [facility]IC CONVERSION GLUCOSE 89 70 - 99 mg/dL [facility] TO EPIC CONVERSION CALCIUM S/P/B 9.8 8.6 - 10.2 mg/dL [facility] TO EPIC CONVERSION BILIRUBIN TOTAL S/P/B 0.5 0.2 - 1.2 mg/dL [facility] TO EPIC CONVERSION AST 19 0 - 40 IU/L [facility] TO EPIC CONVERSION ALT 25 0 - 41 IU/L [facility] TO EPIC CONVERSION ALKALINE PHOSPHATASE S/P/B 67 40 - 129 IU/L [facility] TO EPIC CONVERSION TOTAL PROTEIN S/P/B 7.3 6.4 - 8.3 g/dL [facility] TO EPIC CONVERSION ALBUMIN S/P/B 4.7 3.5 - 5.2 g/dL [facility] TO EPIC CONVERSION GLOBULIN 2.6 2.3 - 3.6 g/dL [facility] TO EPIC CONVERSION A/G RATIO 1.8 1.0 - 2.0 [facility] TO EPIC CONVERSION 11/02/2013 9:55 AM BRANCH LENDING MANAGER 11/02/2013 9:55 AM BRANCH LENDING MANAGER Narrative [facility] TO EPIC CONVERSION - 11/02/2013 4:43 PM BRANCH LENDING MANAGER Result Communication: Call patient with results us Pb Su MD LABORATORY Final Resul t [facility] TO [facility]IC CONVERSION documented in this encounter Visit Diagnoses Not on filedocumented in this encounter Care Teams Plate Cleaner Relationship Specialty Start Date End Date Pb Su MD [address] [place], [place] [address] PCP - General 04/26/16 Pb Su MD [address] [place], [place] [id number] PCP - General 05/19/15 04/25/16 Pb Su MD [address] [place], [place] [id number] PCP - General 12/07/14 05/18/15 Pb Su MD [address] [place], [place] [id number] PCP - General 12/05/14 12/06/14 Pb Su MD [address] [place], [place] [id number] PCP - General 03/23/14 12/04/14 Pb Su MD [address] [place], [place] [address] PCP - General 03/21/14 03/22/14 Pb Su MD [address] [place] [address] PCP - General 03/16/14 03/20/14 Pb Su MD [address] [place], [place] [address] PCP - General 03/14/14 03/15/14 Pb Su MD [address] [place], [place] [address] PCP - General 03/09/14 03/13/14 Pb Su MD [address] [place], [place] [address] PCP - General 03/02/14 03/08/14 Pb Su MD [address] [place], [place] [address] PCP - General 02/28/14 03/01/14 Pb Su MD [address] [place], [place] [address] PCP - General 02/25/14 02/27/14 Pb Su MD [address] [place], [place] [address] PCP - General 02/23/14 02/24/14 Pb Su MD [address] [place] [address] PCP - General 02/17/14 02/22/14 Pb Su MD [address] [place], [place] [address] PCP - General 11/02/13 02/16/14 Pb Su MD [address] [place], [place] [address] PCP - General 09/30/13 11/01/13 documented as of this encounter
--- OUTSIDE RECORDS SUMMARY | 2024-11-14 10:18 | XMS_ITS | Encounter Summary ---
Author Organization [facility] Address [address] [place] [address]. [place], [place] [address] [place] [address] Care Team Providers Care Engineering Geologist Name Role Phone Pb Su MD Primary [...] Department Care Team (Latest Contact Info) Description 07/07/2013 Abstract [facility] Social History Tobacco [...] on filedocumented in this encounter Care Teams Engineering Geologist Relationship Specialty Start Date End Date Pb Su MD [address] [place], [place] [address] PCP - General 04/26/16 Pb Su MD [address] [place], [place] [address] PCP - General 05/19/15 04/25/16 Pb Su MD [address] [place], [place] [address] PCP - General 12/07/14 05/18/15 Pb Su MD [address] [place], [place] [address] PCP - General 12/05/14 12/06/14 Pb Su MD [address] [place], [place] [address] PCP - General 03/23/14 12/04/14 Pb Su MD [address] [place] [address] PCP - General 03/21/14 03/22/14 Pb Su MD [address] [place] [address] PCP - General 03/16/14 03/20/14 Pb Su MD [address] [place], [place] [address] PCP - General 03/14/14 03/15/14 Pb uS MD [address] [place], [place] [address] PCP - General 03/09/14 03/13/14 Pb Su MD [address] [place] [address] PCP - General 03/02/14 03/08/14 Pb Su MD [address] [place], [place] [address] PCP - General 02/28/14 03/01/14 Pb Su MD [address] [place], [place] [address] PCP - General 02/25/14 02/27/14 Pb Su MD [address] [place] [address] PCP - General 02/23/14 02/24/14 Pb Su MD [address] [place], [place] [address] PCP - General 02/17/14 02/22/14 Pb Su MD [address] [place], [place] [address] PCP - General 11/02/13 02/16/14 Pb Su MD [address] [place], [place] [address] PCP - General 09/30/13 11/01/13 Pb Su MD [address] [place], [place] [address] PCP - General 06/10/13 09/29/13 documented as of this encounter
--- OUTSIDE RECORDS SUMMARY | 2024-11-14 10:18 | XMS_ITS | Encounter Summary ---
Author Organization [facility] Address [address] [place] [address]. [place], [place] [address] [place] [address] Care Team Providers Care Mutuel Teller Name Role Phone Pb Su MD Primary [...] Care Team (Late st Contact Info) Description 08/19/2013 Abstract [facility] [address] [place] [address] Seun MakDO [address] [place] [address] Social History Tobacco Use Types Packs/Day Years [...] - - Weight 100.2 kg (221 lb) 08/19/2013 3:06 PM CDT Height 182.9 cm (6') 08/19/2013 3:06 PM CDT Body Mass Index 29.97 08/19/2013 3:06 PM CDT documented in this encounter Progress Notes * Seun Mak DO - 08/19/2013 3:10 PM CDT History of Present Illness PMD:Pb Su M.D. CHIEF COMPLAINT: Right knee pain. HISTORY OF PRESENT ILLNESS: The patient is here today for followup of his right knee pain. He states that the injection was beneficial. The home exercises are beneficial as well as the brace when needed. His symptoms are mild in severity and intermittent in timing. He has no numbness, tingling, or radicular complaints. His only difficulty is with prolonged activities. He discontinued the Relafen as a result of upset stomach. He takes Advil without problems. PHYSICAL EXAMINATION: General: This is a healthy-appearing 48-year-old male. There is no evidence for acute trauma or illness. Psychiatric: The patient is alert and oriented times three. He has a normal mood and affect. Gait: The patient is ambulatory in the office without any assistive device. Circulation: There is no peripheral edema or acute circulatory compromise to the extremities. Neurologic: Sensation and motor functions are intact to the extremities. Skin: No lacerations or skin infections are noted. Musculoskeletal: Right knee: The patient has well-circumscribed region of swelling inthe prepatellar bursa. This is unchanged from the previous exam. The medial and lateral compartments are nontender. There is no click with Jc's. The quadriceps and patellar tendons are intact. He has full knee flexion and extension. There is no joint effusion. IMPRESSION: 1.Chondromalacia patella, right knee, with fissure. 2.Prepatellar bursitis, right knee. RECOMMENDATIONS: The patient will continue with the home exercises. He has discontinued the Relafen. He takes Advil without problems when needed. The patient will apply ice after activities and perform activity modifications. With his improvement, we will see him back as needed. I would be happy tore-evaluate this very pleasant gentleman in the future should the need arise or if his symptoms increase. All questions were answered. His prepatellar bursa is asymptomatic. EVON/ROSAURA/mp Job [id number] Active Problems 1. Atrial Fibrillation 427.31 2. [...] Oral Tablet; TAKE 2 TABLETS DAILY; Therapy: [id number] to (Evaluate:14Oct2013) Requested for: [id number]; Last Rx:[id number] Allergies 1. Acetaminophen-Codeine #3 TABS Vitals [id number] 03:06PM Bp not recorded Unable to obtain BMI Calculated 29.94 BSA Calculated 2.22 Height 6 ft Weight 221 lb Assessment 1. Joint Pain, Localized In The Knee 719.46 2. Joint Pain In The Right Knee 719.46 Signatures Electronically signed by : Seun Mak D.O.; Aug 19 2013 6:12PM (Author) Electronically signed by : Seun Mak D.O.; Aug 23 2013 6:32PM (Author) HNUT ICER documented in this encounter Plan of Treatment Not on file documented as of this encounter Visit Diagnoses Not on filedocumented in this encounter Care Teams Mutuel Teller Relationship Specialty Start Date End Date Pb Su MD [address] [place] [address] PCP - General 04/26/16 Pb Su MD [address] [place], [place] [address] PCP - General 05/19/15 04/25/16 Pb Su MD [address] [place] [address] PCP - General 12/07/14 05/18/15 Pb Su MD [address] [place], [place] [id number] PCP - General 12/05/14 12/06/14 Pb Su MD [address] [place] [address] PCP - General 03/23/14 12/04/14 Pb Su MD [address] [place] [address] PCP - General 03/21/14 03/22/14 Pb Su MD [address] [place], [place] [address] PCP - General 03/16/14 03/20/14 Pb Su MD [address] [place] [address] PCP - General 03/14/14 03/15/14 Pb Su MD [address] [place] [address] PCP - General 03/09/14 03/13/14 Pb Su MD [address] [place] [address] PCP - General 03/02/14 03/08/14 Pb Su MD [address] [place], [place] [address] PCP - General 02/28/14 03/01/14 Pb Su MD [address] [place], [place] [address] PCP - General 02/25/14 02/27/14 Pb Su MD [address] [place], [place] [address] PCP - General 02/23/14 02/24/14 Pb Su MD [address] [place], [place] [address] PCP - General 02/17/14 02/22/14 Pb Su MD [address] [place], [place] [address] PCP - General 11/02/13 02/16/14 Pb Su MD [address] [place], [place] [address] PCP - General 09/30/13 11/01/13 Pb Su MD [address] [place], [place] [address] PCP - General 06/10/13 09/29/13 documented as of this encounter
--- OUTSIDE RECORDS SUMMARY | 2024-11-14 10:18 | XMS_ITS | Encounter Summary ---
Author Organization [facility] Address [address] [place] [address]. [place], [place] [address] [place] [address] Care Team Providers Care Executive Vice President And Chief Financial Officer Name Role Phone Pb Su MD Primary [...] Pb Su MD Primary Care Provider [phone] Pb Su MD Primary Care Provider Pb Su MD Primary Care Provider Pb Su MD Primary Care Provider Pb Su MD Primary Care Provider Pb Su MD Primary Care Provider [phone] Encounter Details Date Type Department Care Team (Late st Contact Info) Description 06/29/2013 Abstract [facility] Family [facility] - [place] [address] [place] [address] Pb Su MD [address] [place] [address] Social History Tobacco Use Types Packs/Day Years Used Date Smoking Tobacco: Never Assessed Sex and Gender Information Value Date Recorded Sex Assigned at Not on file Legal Sex Male 7:22 PM CDT Gender Identity Not on file Sexual Orientation Not on file documented as of this encounter Last Filed Vital Signs Vital Sign Reading Time Taken Comments Blood Pressure 110/70 06/29/2013 7:38 AM CDT Pulse 74 06/29/2013 7:38 AM CDT Temperature - - Respiratory Rate - - Oxygen Saturation - - Inhaled Oxygen Concentration - - Weight 100.2 kg (221 lb) 06/29/2013 7:38 AM CDT Height 182.9 cm (6') 06/29/2013 7:38 AM CDT Body Mass Index 29.97 06/29/2013 7:38 AM CDT documented in this encounter Progress Notes * Pb Su MD - 06/29/2013 7:30 AM CDT Chief Complaint Patient here for annual physical exam. History of Present Illness HM, Adult Male: The patient is being seen for a health maintenance evaluation. Social History: Household members include spouse. He is . 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 The patient has never smoked cigarettes and [...] and updated. Risk screening reviewed and updated. HPI Free Text: HPI: 48 yo male for health maintenance visit: as customary we reviewed medicatins, chief complaint,performed detailed hx and exam! HPI: 48 y male presents for health maintenance schedule/preventive services review; detailed history/exam/ counseling services and exploration of multiple somatic concerns and lab studies! Back Pain Lumbar, Chronic (Brief): The patient is being seen for a routine clinic follow-up of chronic low back pain. The last clinic visit was 6 months month(s) ago. No changes in management were made at the last visit. Symptoms: back pain, back stiffness and decreased range of motion of the back,but no leg pain, no leg numbness, no [...] seen for a routine clinic follow-up of premature ventricular complexes. The last clinic visit was 3 month(s) ago. No changes in management were made at the last visit. Symptoms: no palpitations, no skipped beats, no pauses in heartbeat and no lightheadedness. Associated symptoms: no fatigue, no syncope, no dyspnea, no neck discomfort and no chest pain. Back Pain Lumbar, Acute (Brief): The patient is being seen for follow-up from urgent care for acutelow back pain. This condition is not related to a specific injury and related [...] history: previous back injury. 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 The patient is currently able to do [...] 2. Fatigue 780.79 3. Hyperlipidemia 272.4 4. Lower Back Pain 724.2 5. Normal Routine History And Physical V70.0 6. Premature Ventricular Contractions 427.69 7. Visit For: Screening Exam Malignant Neoplasm Prostate V76.44 8. Vitamin D Deficiency 268.9 Joint Pain, Localized In The Knee 719.46 Past Medical History ?? History of Adult Sleep Apnea 780.57 ?? History of Arthritis V13.4 ?? History of Hypercholesterolemia 272.0 ?? History of Primary Snoring 786.09 Social History ?? Alcohol Use ?? Former Smoker V15.82 Current Meds 1. Claritin 10 MG Oral Tablet; Therapy: (Recorded:[id number]) to Recorded; Dispense: 0 Days ; #: Sufficient TABS; Refill: 0; Record; Last Updated By: Denisse Ceja Allergies 1. Acetaminophen-Codeine #3 TABS Vitals 34Mwy4460 07:38AM Temperature 98 F, Oral Heart Rate 74, L Radial Pulse Quality Normal, L Radial Respiration 16 Respiration Quality Normal Systolic 110, LUE, Sitting Diastolic 70, LUE, Sitting BMI Calculated 29.94 BSA Calculated 2.22 Height 6 ft Weight 221 lb Pain Scale 4 Comment lower back pain Physical Exam Genitourinary: The penis was normal. Examination of [...] and time: Normal. Mood and affect: Normal. Constitutional General appearance: No acute distress, well [...] nose and heel to paez. Assessment 1. Normal Routine History And Physical V70.0 2. Hyperlipidemia 272.4 3. Atrial Fibrillation 427.31 4. Lower Back Pain 724.2 5. Joint Pain In The Right Knee 719.46 Plan Hyperlipidemia (272.4) ?? Atorvastatin Calcium 20 MG Oral Tablet; TAKE 1 TABLET BY MOUTH AT BEDTIME; Therapy: 29Jun2013 to (Evaluate:24Jun2014); Last Rx:29Jun2013 Ordered; For: Hyperlipidemia (272.4); Rx By: Pb Su; Dispense: 90 Days ; #:90 Tablet; Refill: 3; Print Rx Discussion/Summary Impression: health maintenance visit. Currently, he eats [...] advised to be evaluat ed by an product owner and a dentist. Advice and education were given regarding nutrition, aerobic exercise, weight bearing exercise, calcium supplements, vitamin D supplements, sunscreen use and seat belt use. Patient discussion: discussed with the patient. Summary: 48 yo male for health maintenance visit: reviwed PMH, performed hx and exam and made adjustments to address elevated cholesterol Signatures Electronically signed by : Pb Su M.D.; Jul 04 2013 10:14AM (Author) GIRL documented in this encounter Plan of Treatment Not on file documented as of this encounter Visit Diagnoses Not on filedocumented in this encounter Care Teams Executive Vice President And Chief Financial Officer Relationship Specialty Start Date End Date Pb Su MD [address] [place] [address] PCP - General 04/26/16 Pb Su MD [address] [place] [address] PCP - General 05/19/15 04/25/16 Pb Su MD [address] [place] [address] PCP - General 12/07/14 05/18/15 Pb Su MD [address] [place] [address] PCP - General 12/05/14 12/06/14 Pb Su MD [address] [place], [place] [address] PCP - General 03/23/14 12/04/14 Pb Su MD [address] [place] [address] PCP - General 03/21/14 03/22/14 Pb Su MD [address] [place] [address]609 PCP - General 03/16/14 03/20/14 Pb Su MD [address] [place] [address] PCP - General 03/14/14 03/15/14 Pb Su MD [address] [place] [address] PCP - General 03/09/14 03/13/14 Pb Su MD [address] [place] [address] PCP - General 03/02/14 03/08/14 Pb Su MD [address] [place] [address] PCP - General 02/28/14 03/01/14 Pb Su MD [address] [place] [address] PCP - General 02/25/14 02/27/14 Pb Su MD [address] [place] [address] PCP - General 02/23/14 02/24/14 Pb Su MD [address] [place] [address] PCP - General 02/17/14 02/22/14 Pb Su MD [address] [place] [address] PCP - General 11/02/13 02/16/14 Pb Su MD [address] [place] [address] PCP - General 09/30/13 11/01/13 Pb Su MD [address] [place], [place] [address] PCP - General 06/10/13 09/29/13 documented as of this encounter
--- OUTSIDE RECORDS SUMMARY | 2024-11-14 10:18 | XMS_ITS | Encounter Summary ---
Author Organization [facility] Address [address] [place] [address]. [place], [place] [address] [place] [address] Care Team Providers Care Machine Shorthand Reporter Name Role Phone Pb uS MD Primary Care Provider Pb Su MD [...] Department Care Team (Latest Contact Info) Description 11/29/2013 Abstract [facility] Social [...] filedocumented in this encounter Care Teams Machine Shorthand Reporter Relationship Specialty Start Date End Date Pb Su MD [address] [place], [place] [address] PCP - General 04/26/16 Pb Su MD [address] [place] [address] PCP - General 05/19/15 04/25/16 Pb Su MD [address] [place], [place] [address] PCP - General 12/07/14 05/18/15 Pb Su MD [address] [place], [place] [address] PCP - General 12/05/14 12/06/14 Pb Su MD [address] [place] [address] PCP - General 03/23/14 12/04/14 Pb Su MD [address] [place] [address] PCP - General 03/21/14 03/22/14 Pb Su MD [address] [place] [address] PCP - General 03/16/14 03/20/14 Pb Su MD [address] [place] [address] PCP - General 03/14/14 03/15/14 Pb Su MD [address] [place] [address] PCP - General 03/09/14 03/13/14 Pb Su MD [address] [place], [place] [address] PCP - General 03/02/14 03/08/14 Pb Su MD [address] [place] [address] PCP - General 02/28/14 03/01/14 Pb Su MD [address] [place], [place] [address] PCP - General 02/25/14 02/27/14 Pb Su MD [address] [place] [address] PCP - General 02/23/14 02/24/14 Pb Su MD [address] [place], [place] [address] PCP - General 02/17/14 02/22/14 Pb Su MD [address] [place], [place] [address] PCP - General 11/02/13 02/16/14 documented as of this encounter
--- OUTSIDE RECORDS SUMMARY | 2024-11-14 10:19 | XMS_ITS | Encounter Summary ---
Author Organization [facility] Address [address] [place] [address]. [place], [place] [address] [place] [address] Care Team Providers Care Tufting Creeler Name Role Phone Pb Su MD Primary [...] Pb Su MD Primary Care Provider [phone] Pb Su MD Primary Care Provider [phone] Pb Su MD Primary Care Provider [phone] Pb Su MD Primary Care Provider [phone] Pb Su MD Primary Care Provider [phone] Pb Su MD Primary Care Provider [phone] Sussy Zavala MD Primary Care Provider [phone] Fernie Erickson MD Primary Care Provider Unav ailable Encounter Details Date Type Department Care Team (Late st Contact Info) Description 08/13/2010 Abstract [facility] [address] [place], [place] [id number] Pb Su MD [address] [place], [place] [address] Social History Tobacco Use Types Packs/Day Years [...] on filedocumented in this encounter Care Teams Tufting Creeler Relationship Specialty Start Date End Date Pb Su MD [address] [place], [place] [address] PCP - General 04/26/16 Pb Su MD [address] [place], [place] [address] PCP - General 05/19/15 04/25/16 Pb Su MD [address] [place] [address] PCP - General 12/07/14 05/18/15 Pb Su MD [address] [place] [address] PCP - General 12/05/14 12/06/14 Pb Su MD [address] [place] [address] PCP - General 03/23/14 12/04/14 Pb Su MD [address] [place] [address] PCP - General 03/21/14 03/22/14 Pb Su MD [address] [place] [address] PCP - General 03/16/14 03/20/14 Pb Su MD [address] [place] [address] PCP - General 03/14/14 03/15/14 Pb Su MD [address] [place], [place] [address] PCP - General 03/09/14 03/13/14 Pb Su MD [address] [place] [address] PCP - General 03/02/14 03/08/14 Pb Su MD [address] [place] [address] PCP - General 02/28/14 03/01/14 Pb Su MD [address] [place] [address] PCP - General 02/25/14 02/27/14 Pb Su MD [address] [place] [address] PCP - General 02/23/14 02/24/14 Pb Su MD [address] [place], [place] [address] PCP - General 02/17/14 02/22/14 Pb Su MD [address] [place] [address] PCP - General 11/02/13 02/16/14 Pb Su MD [address] [place], [place] [address] PCP - General 09/30/13 11/01/13 Pb Su MD [address] [place] [address] PCP - General 06/10/13 09/29/13 Pb Su MD [address] [place], [place] [address] PCP - General 04/05/13 06/09/13 Pb Su MD [address] [place] [address] PCP - General 09/24/12 04/04/13 Pb Su MD [address] [place] [address] PCP - General 06/11/12 09/23/12 Pb Su MD [address] [place] [address] PCP - General 01/02/12 06/10/12 Pb Su MD [address] [place], [place] [address] PCP - General 10/03/11 01/01/12 Sussy Zavala MD [facility] [address] [place] [address] PCP - General 08/05/11 10/02/11 Fernie Erickson MD [facility]. [facility] [address] [place] [address] PCP - General 10/06/10 08/04/11 documented as of this encounter
--- OUTSIDE RECORDS SUMMARY | 2024-11-14 10:19 | XMS_ITS | Encounter Summary ---
Author Organization [facility] Address [address] [place] [address]. [place], [place] [address] [place] [address] Care Team Providers Care President Of The [place] Name Role Phone Pb Su MD Primary [...] Pb Su MD Primary Care Provider [phone] Pb Su MD Primary Care Provider [phone] Pb Su MD Primary Care Provider [phone] Pb Su MD Primary Care Provider [phone] Pb Su MD Primary Care Provider [phone] Sussy Zavala MD Primary Care Provider [phone] Fernie Erickson MD Primary Care Provider Unav ailable Encounter Details Date Type Department Care Team (Late st Contact Info) Description 12/16/2008 Abstract [facility] [address] [place], [place] [id number] Pb Su MD [address] [place], [place] [address] Social History Tobacco Use Types Packs/Day Years [...] on filedocumented in this encounter Care Teams President Of [place] Relationship Specialty Start Date End Date Pb Su MD [address] [place], [place] [address] PCP - General 04/26/16 Pb Su MD [address] [place], [place] [address] PCP - General 05/19/15 04/25/16 Pb Su MD [address] [place] [address] PCP - General 12/07/14 05/18/15 Pb Su MD [address] [place] [address] PCP - General 12/05/14 12/06/14 Pb Su MD [address] [place] [address] PCP - General 03/23/14 12/04/14 Pb Su MD [address] [place] [address] PCP - General 03/21/14 03/22/14 Pb Su MD [address] [place] [address] PCP - General 03/16/14 03/20/14 Pb Su MD [address] [place], [place] [address] PCP - General 03/14/14 03/15/14 Pb Su MD [address] [place], [place] [address] PCP - General 03/09/14 03/13/14 Pb Su MD [address] [place] [address] PCP - General 03/02/14 03/08/14 Pb Su MD [address] [place] [address] PCP - General 02/28/14 03/01/14 Pb Su MD [address] [place] [address] PCP - General 02/25/14 02/27/14 Pb Su MD [address] [place] [address] PCP - General 02/23/14 02/24/14 Pb Su MD [address] [place] [address] PCP - General 02/17/14 02/22/14 Pb Su MD [address] [place], [place] [address] PCP - General 11/02/13 02/16/14 Pb Su MD [address] [place], [place] [address] PCP - General 09/30/13 11/01/13 Pb Su MD [address] [place] [address] PCP - General 06/10/13 09/29/13 Pb Su MD [address] [place], [place] [address] PCP - General 04/05/13 06/09/13 Pb Su MD [address] [place] [address] PCP - General 09/24/12 04/04/13 Pb Su MD [address] [place] [address] PCP - General 06/11/12 09/23/12 Pb Su MD [address] [place] [address] PCP - General 01/02/12 06/10/12 Pb Su MD [address] [place], [place] [address] PCP - General 10/03/11 01/01/12 Sussy Zavala MD [facility] [address] [place] [address] PCP - General 08/05/11 10/02/11 Fernie Erickson MD [facility]. [facility] [address] [place] [address] PCP - General 10/06/10 08/04/11 documented as of this encounter
--- OUTSIDE RECORDS SUMMARY | 2024-11-14 10:19 | XMS_ITS | Encounter Summary ---
Author Organization [facility] Address [address] [place] [address]. [place], [place] [address] [place] [address] Care Team Providers Care Wood Handler Name Role Phone Pb Su MD Primary [...] Pb Su MD Primary Care Provider [phone] Pb Su MD Primary Care Provider [phone] Pb Su MD Primary Care Provider [phone] Pb Su MD Primary Care Provider Encounter Details Date Type Department Care Team (Late st Contact Info) Description 03/09/[address] [facility] [address] [place] [address] Marquise Salinas MD Social History Tobacco Use Types Packs/Day Years Used Date Smoking Tobacco: Never Assessed Sex and Gender Information Value Date Recorded Sex Assigned at Not on file Legal Sex Male 7:22 PM CDT Gender Identity Not on file Sexual Orientation Not on file documented as of this encounter Plan of Treatment Not on file documented as of this encounter Visit Diagnoses Diagnosis Obstructive sleep apnea Obstructive sleep apnea (adult) (pediatric) documented in this encounter Care Teams Wood Handler Relationship Specialty Start Date End Date Pb Su MD [address] [place], [place] [id number] PCP - General 04/26/16 Pb Su MD [address] [place], [place] [id number] PCP - General 05/19/15 04/25/16 Pb Su MD [address] [place], [place] [id number] PCP - General 12/07/14 05/18/15 Pb Su MD [address] [place] [address] PCP - General 12/05/14 12/06/14 Pb Su MD [address] [place] [address] PCP - General 03/23/14 12/04/14 Pb Su MD [address] [place] [address] PCP - General 03/21/14 03/22/14 Pb Su MD [address] [place] [address] PCP - General 03/16/14 03/20/14 Pb Su MD [address] [place] [address]309 PCP - General 03/14/14 03/15/14 Pb Su MD [address] [place] [address] PCP - General 03/09/14 03/13/14 Pb Su MD [address] [place] [address] PCP - General 03/02/14 03/08/14 Pb Su MD [address] [place] [address] PCP - General 02/28/14 03/01/14 Pb Su MD [address] [place] 44[address] PCP - General 02/25/14 02/27/14 Pb Su MD [address] [place] [address]89 PCP - General 02/23/14 02/24/14 Pb Su MD [address] [place] [address] PCP - General 02/17/14 02/22/14 Pb Su MD [address] [place] [address] PCP - General 11/02/13 02/16/14 Pb Su MD [address] [place] [address] PCP - General 09/30/13 11/01/13 Pb Su MD [address] [place] 9[address] PCP - General 06/10/13 09/29/13 Pb Su MD [address] [place] [address] PCP - General 04/05/13 06/09/13 Pb Su MD [address] [place] [address] PCP - General 09/24/12 04/04/13 Pb Su MD [address] [place] [address] PCP - General 06/11/12 09/23/12 Pb Su MD [address] [place] [address] PCP - General 01/02/12 06/10/12 documented as of this encounter
--- OUTSIDE RECORDS SUMMARY | 2024-11-14 10:19 | XMS_ITS | Encounter Summary ---
Author Organization [facility] Address [address] [place] [address]. [place], [place] [address] [place] [address] Care Team Providers Care Abstract Clerk Name Role Phone Pb Su MD Primary [...] Pb Su MD Primary Care Provider [phone] Pb Su MD Primary Care Provider [phone] Pb Su MD Primary Care Provider [phone] Pb Su MD Primary Care Provider [phone] Pb Su MD Primary Care Provider [phone] Sussy Zavala MD Primary Care Provider [phone] Encounter Details Date Type Department Care Team (Late st Contact Info) Description 08/05/[address] [facility] [address] [place] [address] Marquise Salinas MD Social History Tobacco Use [...] as of this encounter Visit Diagnoses Diagnosis Sleep apnea Unspecified sleep apnea documented in this encounter Care Teams Abstract Clerk Relationship Specialty Start Date End Date Pb Su MD [address] [place], [place] [id number] PCP - General 04/26/16 Pb Su MD [address] [place], [place] [id number] PCP - General 05/19/15 04/25/16 Pb Su MD [address] [place], [place] [id number] PCP - General 12/07/14 05/18/15 Pb Su MD [address] [place] [address] PCP - General 12/05/14 12/06/14 Pb Su MD [address] [place] [address] PCP - General 03/23/14 12/04/14 Pb Su MD [address] [place] [address] PCP - General 03/21/14 03/22/14 Pb Su MD [address] [place] [address] PCP - General 03/16/14 03/20/14 Pb Su MD [address] [place] [address] PCP - General 03/14/14 03/15/14 Pb Su MD [address] [place] [address] PCP - General 03/09/14 03/13/14 Pb Su MD [address] [place] [address] PCP - General 03/02/14 03/08/14 Pb Su MD [address] [place] [address] PCP - General 02/28/14 03/01/14 Pb Su MD [address] [place] [address] PCP - General 02/25/14 02/27/14 Pb Su MD [address] [place] [address] PCP - General 02/23/14 02/24/14 Pb Su MD [address] [place] [address]309 PCP - General 02/17/14 02/22/14 Pb Su MD [address] [place] [address] PCP - General 11/02/13 02/16/14 Pb Su MD [address] [place] [address] PCP - General 09/30/13 11/01/13 Pb Su MD [address] [place] [address] PCP - General 06/10/13 09/29/13 Pb Su MD [address] [place] [address] PCP - General 04/05/13 06/09/13 Pb Su MD [address] [place] [address] PCP - General 09/24/12 04/04/13 Pb Su MD [address] [place] [address] PCP - General 06/11/12 09/23/12 Pb Su MD [address] [place] [address] PCP - General 01/02/12 06/10/12 Pb Su MD [address] [place] [address] PCP - General 10/03/11 01/01/12 Sussy Zavala MD [facility]. [facility] [address] [place], [place] 64[address] PCP - General 08/05/11 10/02/11 documented as of this encounter
--- OUTSIDE RECORDS SUMMARY | 2024-11-14 10:19 | XMS_ITS | Encounter Summary ---
Author Organization [facility] Address [address] [place] [address]. [place], [place] [address] [place] [address] Care Team Providers Care Lbd Teacher Name Role Phone Pb Su MD Primary [...] Pb Su MD Primary Care Provider [phone]- [phone] Encounter Details Date Type Department Care Team (Latest Contact Info) Description 08/28/2012 Abstract [facility] Social History Tobacco Use Types [...] on filedocumented in this encounter Care Teams Lbd Teacher Relationship Specialty Start Date End Date Pb Su MD [address] [place], [place] [id number] PCP - General 04/26/16 Pb Su MD [address] [place] [address]159 PCP - General 05/19/15 04/25/16 Pb Su MD [address] [place] [address]779 PCP - General 12/07/14 05/18/15 Pb Su MD [address] [place], [place] [address]59 PCP - General 12/05/14 12/06/14 Pb Su MD [address] [place] [address] PCP - General 03/23/14 12/04/14 Pb Su MD [address] [place] 9[address]89 PCP - General 03/21/14 03/22/14 Pb Su MD [address] [place] [address] PCP - General 03/16/14 03/20/14 Pb Su MD [address] [place] [address]659 PCP - General 03/14/14 03/15/14 Pb Su MD [address] [place] [address] PCP - General 03/09/14 03/13/14 Pb Su MD [address] [place] [address] PCP - General 03/02/14 03/08/14 Pb Su MD [address] [place] [address]759 PCP - General 02/28/14 03/01/14 Pb Su MD [address] [place] [address] PCP - General 02/25/14 02/27/14 Pb Su MD [address] [place] 311489 PCP - General 02/23/14 02/24/14 Pb Su MD [address] [place] [address]29 PCP - General 02/17/14 02/22/14 Pb Su MD [address] [place] 4[address] PCP - General 11/02/13 02/16/14 Pb Su MD [address] [place] [address] PCP - General 09/30/13 11/01/13 Pb Su MD [address] [place] [address] PCP - General 06/10/13 09/29/13 Pb Su MD [address] [place] [address] PCP - General 04/05/13 06/09/13 Pb Su MD [address] [place] [address] PCP - General 09/24/12 04/04/13 Pb Su MD [address] [place] [address] PCP - General 06/11/12 09/23/12 documented as of this encounter
--- OUTSIDE RECORDS SUMMARY | 2024-11-14 10:19 | XMS_ITS | Encounter Summary ---
Author Organization [facility] Address [address] [place] [address]. [place], [place] [address] [place] [address] Care Team Providers Care Motion Study Technician Name Role Phone Pb Su MD [...] Pb Su MD Primary Care Provider +[phone]- [phone] Pb Su MD Primary Care Provider +- [phone] Pb Su MD Primary Care Provider [phone]- [phone] Encounter Details Date Type Department Care Team (Latest Contact Info) Description 09/24/2012 Abstract [facility] Medical [facility] Social History Tobacco Use [...] on filedocumented in this encounter Care Teams Motion Study Technician Relationship Specialty Start Date End Date Pb Su MD [address] [place], [place] [id number] PCP - General 04/26/16 Pb Su MD [address] [place] [address] PCP - General 05/19/15 04/25/16 Pb Su MD [address] [place] [id number] PCP - General 12/07/14 05/18/15 Pb Su MD [address] [place] [address] PCP - General 12/05/14 12/06/14 Pb Su MD [address] [place] [address] PCP - General 03/23/14 12/04/14 Pb Su MD [address] [place] [address] PCP - General 03/21/14 03/22/14 Pb Su MD [address] [place] [address]379 PCP - General 03/16/14 03/20/14 Pb Su MD [address] [place] 57[address]39 PCP - General 03/14/14 03/15/14 Pb Su MD [address] [place] [address]259 PCP - General 03/09/14 03/13/14 Pb Su MD [address] [place] [address] PCP - General 03/02/14 03/08/14 Pb Su MD [address] [place] [address] PCP - General 02/28/14 03/01/14 Pb Su MD [address] [place] [address] PCP - General 02/25/14 02/27/14 Pb Su MD [address] [place] [address] PCP - General 02/23/14 02/24/14 Pb Su MD [address] [place] [address] PCP - General 02/17/14 02/22/14 Pb Su MD [address] [place] [address]149 PCP - General 11/02/13 02/16/14 Pb Su MD [address] [place] [address]909 PCP - General 09/30/13 11/01/13 Pb Su MD [address] [place] [address]609 PCP - General 06/10/13 09/29/13 Pb Su MD [address] [place] [address]459 PCP - General 04/05/13 06/09/13 Pb Su MD [address] [place], [place] [address] PCP - General 09/24/12 04/04/13 documented as of this encounter
--- OUTSIDE RECORDS SUMMARY | 2024-11-14 10:19 | XMS_ITS | Encounter Summary ---
Author Organization [facility] Address [address] [place] [address]. [place], [place] [address] [place] [address] Care Team Providers Care Watcher Lookout Tower Name Role Phone Pb Su MD Primary [...] Pb Su MD Primary Care Provider [phone] Pb Su MD Primary Care Provider [phone] Pb Su MD Primary Care Provider [phone] Pb Su MD Primary Care Provider [phone] Pb Su MD Primary Care Provider [phone] Pb Su MD Primary Care Provider [phone] Sussy Zavala MD Primary Care Provider [phone] Fernie Erickson MD Primary Care Provider Unav ailable Encounter Details Date Type Department Care Team (Late st Contact Info) Description 04/29/2011 Abstract [facility] [address] [place], [place] [id number] Pb Su MD [address] [place], [place] [address] Social History Tobacco Use Types Packs/Day Years Used Date Smoking Tobacco: Never Assessed Sex and Gender Information Value Date Recorded Sex Assigned at Not on file Legal Sex Male 7:22 PM CDT Gender Identity Not on file Sexual Orientation Not on file documented as of this encounter Plan of Treatment Not on file documented as of this encounter Visit Diagnoses Diagnosis Low back pain Lumbago documented in this encounter Care Teams Watcher Lookout Tower Relationship Specialty Start Date End Date Pb Su MD [address] [place], [place] 5[address]69 PCP - General 04/26/16 Pb Su MD [address] [place], [place] [address]359 PCP - General 05/19/15 04/25/16 Pb Su MD [address] [place] [address] PCP - General 12/07/14 05/18/15 Pb Su MD [address] [place] [address]759 PCP - General 12/05/14 12/06/14 bP Su MD [address] [place] [address] PCP - General 03/23/14 12/04/14 Pb Su MD [address] [place] 28[address] PCP - General 03/21/14 03/22/14 Pb Su MD [address] [place] [address] PCP - General 03/16/14 03/20/14 Pb Su MD [address] [place] [address] PCP - General 03/14/14 03/15/14 Pb Su MD [address] [place] [address]309 PCP - General 03/09/14 03/13/14 Pb Su MD [address] [place] [address] PCP - General 03/02/14 03/08/14 Pb Su MD [address] [place] [address] PCP - General 02/28/14 03/01/14 Pb Su MD [address] [place] [address] PCP - General 02/25/14 02/27/14 Pb Su MD [address] [place] [address] PCP - General 02/23/14 02/24/14 Pb Su MD [address] [place] [address] PCP - General 02/17/14 02/22/14 Pb Su MD [address] [place] [address]649 PCP - General 11/02/13 02/16/14 Pb Su MD [address] [place] [address] PCP - General 09/30/13 11/01/13 Pb Su MD [address] [place] [address] PCP - General 06/10/13 09/29/13 Pb Su MD [address] [place] [address]989 PCP - General 04/05/13 06/09/13 Pb Su MD [address] [place] [address] PCP - General 09/24/12 04/04/13 Pb Su MD [address] [place] [address] PCP - General 06/11/12 09/23/12 Pb Su MD [address] [place] [address] PCP - General 01/02/12 06/10/12 Pb Su MD [address] [place] [address] PCP - General 10/03/11 01/01/12 Sussy Zavala MD [facility] [address] [place] [address] PCP - General 08/05/11 10/02/11 Fernie Erickson MD [facility]. [facility] [address] [place] [address] PCP - General 10/06/10 08/04/11 documented as of this encounter
--- OUTSIDE RECORDS SUMMARY | 2024-11-14 10:19 | XMS_ITS | Encounter Summary ---
Author Organization [facility] Address [address] [place] [address]. [place], [place] [address] [place] [address] Care Team Providers Care Industrial Maintenance Millwright Name Role Phone Pb Su MD Primary [...] Pb Su MD Primary Care Provider [phone] Pb Su MD Primary Care Provider Pb Su MD Primary Care Provider Pb Su MD Primary Care Provider [phone] Encounter Details Date Type Department Care Team (Latest Contact Info) Description 08/06/2012 Abstract [facility] Social History Tobacco Use [...] filedocumented in this encounter Care Teams Industrial Maintenance Millwright Relationship Specialty Start Date End Date Pb Su MD [address] [place], [place] [id number] PCP - General 04/26/16 Pb Su MD [address] [place], [place] [address]359 PCP - General 05/19/15 04/25/16 Pb Su MD [address] [place] [address] PCP - General 12/07/14 05/18/15 Pb Su MD [address] [place], [place] [address] PCP - General 12/05/14 12/06/14 Pb Su MD [address] [place] [address] PCP - General 03/23/14 12/04/14 Pb Su MD [address] [place] [address]809 PCP - General 03/21/14 03/22/14 Pb Su MD [address] [place] [address] PCP - General 03/16/14 03/20/14 Pb Su MD [address] [place] [address]679 PCP - General 03/14/14 03/15/14 Pb Su MD [address] [place] [address] PCP - General 03/09/14 03/13/14 Pb Su MD [address] [place] [address]479 PCP - General 03/02/14 03/08/14 Pb Su MD [address] [place] [address] PCP - General 02/28/14 03/01/14 Pb uS MD [address] [place] [address] PCP - General 02/25/14 02/27/14 Pb Su MD [address] [place] [address] PCP - General 02/23/14 02/24/14 Pb Su MD [address] [place] [address] PCP - General 02/17/14 02/22/14 Pb Su MD [address] [place], [place] 46[address] PCP - General 11/02/13 02/16/14 Pb Su MD [address] [place], [place] [address]889 PCP - General 09/30/13 11/01/13 Pb Su MD [address] [place] [address]229 PCP - General 06/10/13 09/29/13 Pb Su MD [address] [place], [place] [address] PCP - General 04/05/13 06/09/13 Pb Su MD [address] [place] [address] PCP - General 09/24/12 04/04/13 Pb Su MD [address] [place] [address] PCP - General 06/11/12 09/23/12 documented as of this encounter
--- OUTSIDE RECORDS SUMMARY | 2024-11-14 10:19 | XMS_ITS | Encounter Summary ---
Author Organization [facility] Address [address] [place] [address]. [place], [place] [id number] [place] [address] Care Team Providers Care Wire Products Inspector Name Role Phone Pb Su MD [...] Pb Su MD Primary Care Provider [phone] Pb Su MD Primary Care Provider [phone] Pb Su MD Primary Care Provider [phone] Encounter Details Date Type Department Care Team (Late st Contact Info) Description 10/30/2012 Abstract [facility] - [facility] [address] [place] [address] Seun MakDO [address] [facility] [address] [address] [place] [address] [place] [address] Social History Tobacco Use Types Packs/Day Years Used Date Smoking Tobacco: Never Assessed Sex and Gender Information Value Date Recorded Sex Assigned at Not on file Legal Sex Male 7:22 PM CDT Gender Identity Not on file Sexual Orientation Not on file documented as of this encounter Progress Notes * Seun MakDO - 10/30/2012 8:00 AM CST Chief Complaint PMD: Dr. Su Chief Complaint: right knee pain History of Present Illness this is a 47-year-old male with progressive right knee pain over the past 10 years. During the past2 years, the pain has increased. Several months ago, the patient had increased swelling. The swelling is currently improving. There is no giving way or locking. There is no numbness, tingling, or radicular complaint. He has no complaint of the left leg or the upper extremities. This is a dull aching quality of pain at rest but is more severe with activities. With activities, his pain as an 8 on a10 point pain severity scale. Sudden movements as well as squatting and weightbearing increase his symptoms. Rest and activity modifications improve his symptoms. The patient had x-rays and MRI. Orthopedic consultation was requested. Review of Systems Focused-Male: Constitutional: fever and chills. ENT: hay fever/allergies. Cardiovascular: Normal. Respiratory: shortness of breath, wheezing and cough. Gastrointestinal: vomiting and diarrhea. Genitourinary: Normal. Integumentary: Normal. Musculoskeletal: joint pain and joint swelling. Neurological: numbness. headaches. Active Problems 1. Hyperlipidemia 272.4 2. Joint Pain, Localized In The Knee 719.46 3. Lower Back Pain 724.2 4. Premature Ventricular Contractions 427.69 Past Medical History 1. History of Adult Sleep Apnea 780.57 2. History of Arthritis V13.4 3. History of Hypercholesterolemia 272.0 4. History of Primary Snoring 786.09 Social History ?? Alcohol Use ?? Former Smoker V15.82 Current Meds 1. Atorvastatin Calcium 20 MG Oral Tablet; TAKE 1 TABLET DAILY DIRECTED; Therapy: [id number] to (Evaluate:14Feb2013); Last Rx:[id number] 2. Claritin 10 MG Oral Tablet; TAKE 1 TABLET DAILY; Therapy: (Recorded:18Aug2012) to Allergies 1. Acetaminophen-Codeine #3 TABS Physical Exam General Appearance: Well developed, appears healthy, comfortable, well nourished and well hydrated. Musculoskeletal:. Normal gait and station. Normal muscle strength/tone. Cardiovascular:. Normal pulses. No edema or varicosities. Skin:. Skin and subcutaneous tissue inspection normal. Skin and subcutaneous tissue palpation normal. Neurologic:. Normal sensation. Psychiatric:. Orientation to person, place, and time normal. Normal mood and affect. Right Knee: the right knee demonstrates tenderness of the patellofemoral region. There is a well-circumscribed region of swelling anterior to the patellar tendon just inferior to the patella. Findings consistent with prepatellar bursitis. The medial and lateral joint lines revealed no crepitus or synovial thickening. Jc's reveals no definite click. Anterior and posterior drawers are normal. David's testis normal. There is no instability with testing of the collateral ligaments. The quadriceps and patellar tendons are intact. The popliteal region is nontender as well as the hamstrings. Patellofemoral Joint: Meniscal: Results/Data Xray: Knee: Views: AP and lateral views and from [facility] of the right knee. Findings: there is no advanced arthritis. No acute fractures noted. Knee MRI (Brief): MRI from [facility] dated August 28, 2010 reveals a fissure in the midportion of the patella. There is subchondral edema located in this region. The medial and lateral meniscus are intact. The anterior and posterior crucial ligaments are intact. No fracture is noted. There is some edema of the lateral collateral ligament, however it appears to be intact. There is also chondromalacia of the lateral facet of the patella. Assessment chondromalacia patella right knee with fissure Plan treatment options were discussed. We will place him on Relafen to help reduce inflammation. He willnot take ibuprofen, Aleve, or other anti-inflammatories with this medication. He will discontinue the medication if there is any upset stomach, peripheral edema, changes of blood-pressure, etc. We will start him on home exercises and discussed activity modifications. He will avoid squatting, kneeling, running, jumping, et cetera. He may apply ice after activities. Followup will be in 3-4 weeks. Consideration to injection, physical therapy, or other measures are possibility pending his progress. Signatures Electronically signed by : Seun Mak D.O.; Oct 30 2012 9:22AM (Author) NEL DIRECTOR documented in this encounter Plan of Treatment Not on file documented as of this encounter Visit Diagnoses Not on filedocumented in this encounter Care Teams Wire Products Inspector Relationship Specialty Start Date End Date Pb Su MD [address] [place] [address] PCP - General 04/26/16 Pb Su MD [address] [place] [address] PCP - General 05/19/15 04/25/16 Pb Su MD [address] [place] [address] PCP - General 12/07/14 05/18/15 Pb Su MD [address] [place] [address] PCP - General 12/05/14 12/06/14 Pb Su MD [address] [place] [address] PCP - General 03/23/14 12/04/14 Pb Su MD [address] [place], [place] [address] PCP - General 03/21/14 03/22/14 Pb Su MD [address] [place], [place] [address] PCP - General 03/16/14 03/20/14 Pb Su MD [address] [place], [place] [address] PCP - General 03/14/14 03/15/14 Pb uS MD [address] [place], [place] [address] PCP - General 03/09/14 03/13/14 Pb Su MD [address] [place], [place] [address] PCP - General 03/02/14 03/08/14 Pb Su MD [address] [place] [address] PCP - General 02/28/14 03/01/14 Pb Su MD [address] [place], [place] [address] PCP - General 02/25/14 02/27/14 Pb Su MD [address] [place], [place] [address] PCP - General 02/23/14 02/24/14 Pb Su MD [address] [place], [place] [address] PCP - General 02/17/14 02/22/14 Pb Su MD [address] [place], [place] [address] PCP - General 11/02/13 02/16/14 Pb Su MD [address] [place], [place] [address] PCP - General 09/30/13 11/01/13 Pb Su MD [address] [place] [address] PCP - General 06/10/13 09/29/13 Pb Su MD [address] [place] [address] PCP - General 04/05/13 06/09/13 Pb Su MD [address] [place] [address] PCP - General 09/24/12 04/04/13 documented as of this encounter
--- OUTSIDE RECORDS SUMMARY | 2024-11-14 10:19 | XMS_ITS | Encounter Summary ---
Author Organization [facility] Address [address] [place] [address]. [place], [place] [address] [place] [address] Care Team Providers Care Stacker Operator Name Role Phone Pb Su MD [...] Pb Su MD Primary Care Provider [phone] Pb Su MD Primary Care Provider [phone]- [phone] Pb Su MD Primary Care Provider [phone] Pb Su MD Primary Care Provider [phone] Encounter Details Date Type Department Care Team (Late st Contact Info) Description 07/31/2012 Abstract [facility] Family Medicine - [place] [address] [place] [address] Pb Su MD [address] [place] [address] Social History Tobacco Use Types Packs/Day Years Used Date Smoking Tobacco: Never Assessed Sex and Gender Information Value Date Recorded Sex Assigned at Not on file Legal Sex Male 7:22 PM CDT Gender Identity Not on file Sexual Orientation Not on file documented as of this encounter Last Filed Vital Signs Vital Sign Reading Time Taken Comments Blood Pressure 120/84 07/31/2012 8:22 AM CDT Pulse 60 07/31/2012 8:22 AM CDT Temperature - - Respiratory Rate - - Oxygen Saturation - - Inhaled Oxygen Concentration - - Weight 96.2 kg (212 lb) 07/31/2012 8:22 AM CDT Height 182.9 cm (6') 07/31/2012 8:22 AM CDT Body Mass Index 28.75 07/31/2012 8:22 AM CDT documented in this encounter Progress Notes * Pb Su MD - 07/31/2012 8:15 AM CDT History of Present Illness HM, Adult Male: The patient is being seen for a health maintenance evaluation. Social History: Household members include spouse. He is . 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 He reports rare alcohol use. He has never used illicit drugs. General Health: The patient's health since the last visit is described as good. He has regular dental visits. Immunizations status: up to date. Lifestyle:. He consumes a diverse and healthy diet. He does not have any weight concerns. He exercises regularly. He denies drug use. Reproductive health:. The patient is sexually active. control is not being practiced. He denies erectile dysfunction. Screening: Cancer screening reviewed and updated. Metabolic screening reviewed and updated. Back Pain Lumbar, Acute (Brief): The patient is being seen for follow-up from urgent care for acutelow back pain. This condition is not related to a specific injury and related to repetitive activity. The injury started 1 year year(s) ago, is chronic, occurred during a sports activity, resulted from lifting and resulted from bending. Back Pain Lumbar, Chronic (Brief): The last clinic visit was 6 months month(s) ago. No changes in management were made at the last visit. Symptoms: back pain, back stiffness and decreased range of motion of the back, but no leg pain, no leg numbness, no foot numbness and no foot weakness. Symptoms are located in the mid back bilaterally. There is no radiation. Onset was sudden. The symptoms occurintermittently. The episodes occur monthly. The patient describes symptoms as moderate in severity and unchanged. Exacerbating factors: weight bearing, back motion, lifting and straining. Relieving factors: rest, heat and physical therapy. Current treatment includes activity modification and heat. By report, there is fair compliance with treatment. Initial diagnosis of chronic low back pain was 1year(s) ago. Since diagnosis the disease has been unchanged. Recently, the disease has been unchanged. He was previously evaluated in this clinic. Past evaluation has included lumbar spine x-ray. Past treatment has included activity modification, heat and physical therapy. Hyperlipidemia (Follow-Up): The patient states his hyperlipidemia has been under good control sincethe last visit. He has no comorbid illnesses. He has no significant interval events. Symptoms: Denies chest pain, denies intermittent leg claudication, denies muscle pain, denies muscle weakness and denies . Associated symptoms include no focal neurologic deficits and no memory loss. Premature Ventricular Complexes (Brief): The patient is [...] no neck discomfort and no chest pain. Active Problems 1. Hyperlipidemia 272.4 2. Lower Back Pain 724.2 3. Premature Ventricular Contractions 427.69 Allergies 1. Acetaminophen-Codeine #3 TABS Vitals Signs [Data Includes: Current Encounter] Temperature: 98 F, Heart Rate: 60, Respiration: 18, Systolic: 120, Diastolic: 84, BMI Calculated: 28.71, BSA Calculated: 2.18, Height: 6 ft , Weight: 212 lb Physical Exam Constitutional General appearance: No acute [...] nose and heel to paez. Assessment 1. Hyperlipidemia 272.4 2. Lower Back Pain 724.2 3. Health Maintenance V70.0 4. Premature Ventricular Contractions 427.69 5. Joint Pain, Localized In The Knee 719.46 Plan Hyperlipidemia (272.4) ?? CMP (Comprehensive Metabolic Profile) Requested for: 44Dfj2915 ?? Lipid Profile Requested for: 56Gec0579 ?? TSH (Thyroid Stim Hormone) Requested for: 61Bwe9014 ?? Call 365 if: You experience a new kind of chest pain (angina) or pressure. Requested for: 69Nwm7795 ?? A diet that is low in fat, cholesterol and sodium is considered a cardiac diet. Done: 50Zup8378 ?? Avoid alcoholic beverages. Done: 96Ikq4759 ?? Begin or continue regular aerobic exercise. Gradually work up to at least 3 sessions of 30 minutes of exercise a week. Done: 58Kga6851 ?? Eat a low fat and low cholesterol diet. Done: 21Bja3748 ?? Some eating tips that can help you lose weight. Done: 85Adv2805 ?? Start eating more fiber. Done: 82Qdz9484 Joint Pain, Localized In The Knee (719.46) ?? Physical Therapy Referral Outpatient Consult for adult Requested for: 24Xsh2958 Lower Back Pain (724.2) ?? Call if: The pain is not better in 1 week. Requested for: 35Scw1209 ?? Call if: The pain seems worse. Requested for: 64Bch7488 ?? Call if: You have pain or numbness from your back to your hip and leg. Requested for: 84Hgp1621 ?? Call if: You lose weight without trying to. Requested for: 02Int7100 ?? Call if: Your bowel movements are hard, difficult to push out, or if several days have gone by without a bowel movement. Requested for: 00Kmn4242 ?? Call if: Your temperature is higher than 101F. Requested for: 35Oyd3872 ?? Seek Immediate Medical Attention if: You have signs of dangerous pressure on the nerves in your pelvis. Requested for: 84Neb7292 ?? Seek Immediate Medical Attention if: Your leg becomes weak. Requested for: 86Sti2324 ?? Seek Immediate Medical Attention if: Your leg is numb, cold, or tingling. Requested for: 02Cev3476 ?? Begin a walking program. Start with walks lasting 10 minutes and slowly work up to 30-40 minutes as pain allows. Done: 83Wgu0512 ?? Rest the injured area as much as possible. Done: 68Ucz1313 ?? Some eating tips that can help you lose weight include: Done: 99Thg0981 ?? There are several things you can do to help your back heal and stay healthy. Done: 11Uja2047 ?? We recommend that you avoid straining your back while lifting. Done: 59Smo7988 Premature Ventricular Contractions (427.69) ?? Call if: The symptoms seem worse. Requested for: 02Osw1815 ?? Call if: You become dizzy or lightheaded, especially when you stand up after sitting for awhile. Requested for: 14Dmu0690 ?? Call if: You feel unusually tired. Requested for: 34Cgq6605 ?? Call if: Your pulse is faster than 100 or is slower than 60 or seems irregular. Requested for: 08Yhq0340 ?? Seek Immediate Medical Attention if: You are feeling short of breath. Requested for: 20Olf3723 ?? Seek Immediate Medical Attention if: You experience a new kind of chest pain (angina) or pressure. Requested for: 20Kdx5234 ?? Seek Immediate Medical Attention if: You feel your heart is beating very fast or skipping beats. Requested for: 13Ylv2693 ?? Seek Immediate Medical Attention if: You have fainted or passed out. Requested for: 97Bzx3799 ?? Avoid alcoholic beverages. Done: 76Mhd8066 ?? Avoid foods and beverages that contain caffeine. Done: 58Hxm7130 ?? You may continue or resume your normal level of activity. Done: 91Kip7942 Signatures Electronically signed by : Pb Su M.D.; Jul 31 2012 3:08PM (Author) TICS WORKER documented in this encounter Plan of Treatment Not on file documented as of this encounter Visit Diagnoses Not on filedocumented in this encounter Care Teams Stacker Operator Relationship Specialty Start Date End Date Pb Su MD [address] [place], [place] [address] PCP - General 04/26/16 Pb Su MD [address] [place], [place] [address] PCP - General 05/19/15 04/25/16 Pb Su MD [address] [place], [place] [address] PCP - General 12/07/14 05/18/15 Pb Su MD [address] [place], [place] [address] PCP - General 12/05/14 12/06/14 Pb Su MD [address] [place], [place] [address] PCP - General 03/23/14 12/04/14 Pb Su MD [address] [place], [place] [address] PCP - General 03/21/14 03/22/14 Pb Su MD [address] [place] [address] PCP - General 03/16/14 03/20/14 Pb Su MD [address] [place], [place] [address] PCP - General 03/14/14 03/15/14 Pb Su MD [address] [place], [place] [address] PCP - General 03/09/14 03/13/14 Pb Su MD [address] [place], [place] [address] PCP - General 03/02/14 03/08/14 Pb Su MD [address] [place], [place] [address] PCP - General 02/28/14 03/01/14 Pb Su MD [address] [place], [place] [address] PCP - General 02/25/14 02/27/14 Pb Su MD [address] [place], [place] [address] PCP - General 02/23/14 02/24/14 Pb Su MD [address] [place] [address] PCP - General 02/17/14 02/22/14 Pb Su MD [address] [place] [address] PCP - General 11/02/13 02/16/14 Pb Su MD [address] [place], [place] [address] PCP - General 09/30/13 11/01/13 Pb Su MD [address] [place], [place] [address] PCP - General 06/10/13 09/29/13 Pb Su MD [address] [place], [place] [address] PCP - General 04/05/13 06/09/13 Pb Su MD [address] [place] [address] PCP - General 09/24/12 04/04/13 Pb Su MD [address] [place], [place] [address] PCP - General 06/11/12 09/23/12 documented as of this encounter
--- OUTSIDE RECORDS SUMMARY | 2024-11-14 10:19 | XMS_ITS | Encounter Summary ---
Author Organization [facility] Address [address] [place] [address]. [place], [place] [address] [place] [address] Care Team Providers Care Candy Supervisor Name Role Phone Pb Su MD Primary Care Provider [phone] Pb Su MD Primary Care Provider Pb [...] Department Care Team (Latest Contact Info) Description 06/11/2012 Abstract [facility] Social History [...] on filedocumented in this encounter Care Teams Candy Supervisor Relationship Specialty Start Date End Date Pb Su MD [address] [place], [place] [id number] PCP - General 04/26/16 Pb Su MD [address] [place], [place] [address] PCP - General 05/19/15 04/25/16 Pb Su MD [address] [place] [address] PCP - General 12/07/14 05/18/15 Pb Su MD [address] [place], [place] [address] PCP - General 12/05/14 12/06/14 Pb Su MD [address] [place] [address] PCP - General 03/23/14 12/04/14 Pb Su MD [address] [place], [place] [address] PCP - General 03/21/14 03/22/14 Pb Su MD [address] [place], [place] [address] PCP - General 03/16/14 03/20/14 Pb Su MD [address] [place], [place] [address] PCP - General 03/14/14 03/15/14 Pb Su MD [address] [place], [place] [address] PCP - General 03/09/14 03/13/14 Pb Su MD [address] [place], [place] [address] PCP - General 03/02/14 03/08/14 Pb Su MD [address] [place], [place] [address] PCP - General 02/28/14 03/01/14 Pb Su MD [address] [place] [address] PCP - General 02/25/14 02/27/14 Pb Su MD [address] [place], [place] [address] PCP - General 02/23/14 02/24/14 Pb Su MD [address] [place], [place] [address] PCP - General 02/17/14 02/22/14 Pb Su MD [address] [place], [place] [address] PCP - General 11/02/13 02/16/14 Pb Su MD [address] [place], [place] [address] PCP - General 09/30/13 11/01/13 Pb Su MD [address] [place] [address] PCP - General 06/10/13 09/29/13 Pb Su MD [address] [place], [place] [address] PCP - General 04/05/13 06/09/13 Pb Su MD [address] [place] [address] PCP - General 09/24/12 04/04/13 Pb Su MD [address] [place] [address] PCP - General 06/11/12 09/23/12 documented as of this encounter
--- OUTSIDE RECORDS SUMMARY | 2024-11-14 10:19 | XMS_ITS | Encounter Summary ---
Author Organization [facility] Address [address] [place] [address]. [place], [place] [address] [place] [address] Care Team Providers Care Youth Career Specialist Name Role Phone Pb Su MD Primary Care Provider [phone] Pb Su MD Primary Care Provider Pb Su MD Primary Care Provider Pb Su MD Primary Care Provider Pb Su MD Primary Care Provider Pb Su MD Primary Care Provider Pb Su MD Primary Care Provider Pb Su MD Primary Care Provider Pb uS MD Primary Care Provider Pb Su MD Primary Care Provider Pb Su MD Primary Care Provider Pb Su MD Primary Care Provider Pb Su MD Primary Care Provider Pb Su MD Primary Care Provider Pb Su MD Primary Care Provider Pb Su MD Primary Care Provider Pb Su MD Primary Care Provider [phone] Pb Su MD Primary Care Provider [phone] Pb Su MD Primary Care Provider [phone] Encounter Details Date Type Department Care Team (Late st Contact Info) Description 02/01/2013 Abstract [facility] Multispecialty Care - [facility] [address] [place] [address] Seun Mak DO [address] [place] [address] Social History Tobacco Use Types Packs/Day Years Used Date Smoking Tobacco: Never Assessed Sex and Gender Information Value Date Recorded Sex Assigned at Not on file Legal Sex Male 7:22 PM CDT Gender Identity Not on file Sexual Orientation Not on file documented as of this encounter Last Filed Vital Signs Vital Sign Reading Time Taken Comments Blood Pressure 120/80 02/01/2013 4:27 PM CDT Pulse - - Temperature - - Respiratory Rate - - Oxygen Saturation - - Inhaled Oxygen Concentration - - Weight 97.5 kg (215 lb) 02/01/2013 4:27 PM CDT Height 182.9 cm (6') 02/01/2013 4:27 PM CDT Body Mass Index 29.16 02/01/2013 4:27 PM CDT documented in this encounter Progress Notes * Seun Mak DO - 02/01/2013 4:15 PM CDT Reason For Visit PMD: Dr. Su Referred By / Reason right knee pain History of Present Illness The patient is here today for repeat evaluation of his right knee pain. He states that the pain is about the same. His symptoms are intermittent. At rest, there is no pain. Squatting and a semiflexedposition increase his symptoms. His pain will be a 2 on a 10 point pain severity scale and sharp inquality when present. He also has a region of swelling in the prepatellar bursa and the knot is bigger. There is no numbness, tingling, or radicular complaint. There is no giving way or locking. He has no other extremity complaints. Examination: General: The patient appears be healthy and there is no evidence for acute trauma or illness. Psychiatric: The patient is alert and oriented x3. He has normal mood and affect. He is pleasant and cooperative. Gait: The patient is ambulatory in the office without any assistive device or limp. Circulation: There is no peripheral edema or acute circulatory compromise to the extremities. Neurologic: Sensation and motor functions are grossly intact to the upper and lower extremities. Skin: Intact to the extremities. Musculoskeletal: The right knee reveals localized swelling and thickening of the prepatellar bursa.The medial and lateral joint lines are nontender. There is minimal crepitus of the medial joint line. He has a good endpoint with anterior and posterior drawers and David's has a good endpoint. There is no instability with testing of the collateral ligaments. The quadriceps and patellar tendons ar e intact. There is no Tipton's cyst. Impression: #1. Chondromalacia patella right knee with fissure. #2. Prepatellar bursitis right knee. Recommendations: The patient will continue with the home exercises. He may apply ice after activities. The region of the prepatellar bursal swelling has benign features. He will avoid direct contact and kneeling. The patient's symptoms are chronic and mild. He will therefore continue with nonoperative treatment. Followup will be as needed. Consideration to a second intra-articular injection is a possibility if he has increased or recurrent symptoms. I would be happy to reevaluate this very pleasant gentleman in the future should the need arise. Active Problems 1. Hyperlipidemia 272.4 2. Joint Pain, Localized In The Knee 719.46 3. Lower Back Pain 724.2 4. Premature Ventricular Contractions 427.69 Past Medical History 1. History of Adult Sleep Apnea 780.57 2. History of Arthritis V13.4 3. History of Hypercholesterolemia 272.0 4. History of Primary Snoring 786.09 Social History ?? Alcohol Use ?? Former Smoker V15.82 Current Meds 1. Nabumetone 500 MG Oral Tablet; TAKE 2 TABLETS DAILY; Therapy: 30Oct2012 to (Evaluate:28Jan2013) Requested for: 04Dec2012; Last Rx:30Oct2012 Allergies 1. Acetaminophen-Codeine #3 TABS Vitals 01Feb2013 04:27PM Systolic 120 Diastolic 80 BMI Calculated 29.12 BSA Calculated 2.2 Height 6 ft Weight 215 lb Assessment 1. Joint Pain, Localized In The Knee 719.46 Signatures Electronically signed by : Seun Mak D.O.; Feb 01 2013 7:32PM (Author) DYE HAND documented in this encounter Plan of Treatment Not on file documented as of this encounter Visit Diagnoses Not on filedocumented in this encounter Care Teams Youth Career Specialist Relationship Specialty Start Date End Date Pb Su MD [address] [place], [place] [id number] PCP - General 04/26/16 Pb Su MD [address] [place], [place] [id number] PCP - General 05/19/15 04/25/16 Pb Su MD [address] [place], [place] [id number] PCP - General 12/07/14 05/18/15 Pb Su MD [address] [place] [id number] PCP - General 12/05/14 12/06/14 Pb Su MD [address] [place], [place] [id number] PCP - General 03/23/14 12/04/14 bP Su MD [address] [place] [address] PCP - General 03/21/14 03/22/14 Pb Su MD [address] [place], [place] [address]39 PCP - General 03/16/14 03/20/14 Pb Su MD [address] [place] 6[address]89 PCP - General 03/14/14 03/15/14 Pb Su MD [address] [place] [address] PCP - General 03/09/14 03/13/14 Pb Su MD [address] [place] [address] PCP - General 03/02/14 03/08/14 Pb Su MD [address] [place] [address] PCP - General 02/28/14 03/01/14 Pb Su MD [address] [place] [address] PCP - General 02/25/14 02/27/14 Pb Su MD [address] [place] [address] PCP - General 02/23/14 02/24/14 Pb Su MD [address] [place], [place] [address]349 PCP - General 02/17/14 02/22/14 Pb Su MD [address] [place] [address]559 PCP - General 11/02/13 02/16/14 Pb Su MD [address] [place] [address] PCP - General 09/30/13 11/01/13 Pb Su MD [address] [place], [place] [address] PCP - General 06/10/13 09/29/13 Pb Su MD [address] [place] [address] PCP - General 04/05/13 06/09/13 Pb Su MD [address] [place], [place] [address] PCP - General 09/24/12 04/04/13 documented as of this encounter
--- OUTSIDE RECORDS SUMMARY | 2024-11-14 10:19 | XMS_ITS | Encounter Summary ---
Author Organization [facility] Address [address] [place] [address]. [place], [place] [address] [place] [address] Care Team Providers Care Administrative Services Specialist Name Role Phone Pb Su MD [...] Pb Su MD Primary Care Provider [phone] Pb Su MD Primary Care Provider Pb Su MD Primary Care Provider [phone] Pb Su MD Primary Care Provider Encounter Details Date Type Department Care Team (Late st Contact Info) Description 06/11/2012 Abstract [facility] [address] [place], [place] [id number] Pb Su MD [address] [place] [address] Social History Tobacco Use Types Packs/Day Years Used Date Smoking Tobacco: Never Assessed Sex and Gender Information Value Date Recorded Sex Assigned at Not on file Legal Sex Male 7:22 PM CDT Gender Identity Not on file Sexual Orientation Not on file documented as of this encounter Plan of Treatment Not on file documented as of this encounter Visit Diagnoses Diagnosis Anemia Anemia, unspecified documented in this encounter Care Teams Administrative Services Specialist Relationship Specialty Start Date End Date Pb Su MD [address] [place], [place] [id number] PCP - General 04/26/16 Pb Su MD [address] [place], [place] [id number] PCP - General 05/19/15 04/25/16 Pb Su MD [address] [place] [address] PCP - General 12/07/14 05/18/15 Pb Su MD [address] [place] [address] PCP - General 12/05/14 12/06/14 Pb Su MD [address] [place] [address] PCP - General 03/23/14 12/04/14 Pb Su MD [address] [place] [address] PCP - General 03/21/14 03/22/14 Pb Su MD [address] [place] [address] PCP - General 03/16/14 03/20/14 Pb Su MD [address] [place] [address]169 PCP - General 03/14/14 03/15/14 Pb Su MD [address] [place] [address] PCP - General 03/09/14 03/13/14 Pb Su MD [address] [place] [address] PCP - General 03/02/14 03/08/14 Pb Su MD [address] [place] [address] PCP - General 02/28/14 03/01/14 Pb Su MD [address] [place] [address] PCP - General 02/25/14 02/27/14 Pb Su MD [address] [place] [address]759 PCP - General 02/23/14 02/24/14 Pb Su MD [address] [place] [address] PCP - General 02/17/14 02/22/14 Pb Su MD [address] [place] [address] PCP - General 11/02/13 02/16/14 Pb Su MD [address] [place], [place] [address] PCP - General 09/30/13 11/01/13 Pb Su MD [address] [place] [address] PCP - General 06/10/13 09/29/13 Pb Su MD [address] [place] [address] PCP - General 04/05/13 06/09/13 Pb Su MD [address] [place], [place] [address] PCP - General 09/24/12 04/04/13 Pb Su MD [address] [place], [place] [address] PCP - General 06/11/12 09/23/12 documented as of this encounter
--- OUTSIDE RECORDS SUMMARY | 2024-11-14 10:19 | XMS_ITS | Encounter Summary ---
Author Organization [facility] Address [address] [place] [address]. [place], [place] [address] [place] [address] Care Team Providers Care Research Soil Scientist Name Role Phone Pb Su MD Primary [...] Pb Su MD Primary Care Provider [phone] Pb Su MD Primary Care Provider Pb Su MD Primary Care Provider [phone] Encounter Details Date Type Department Care Team (Late st Contact Info) Description 01/23/[address] [facility] [address] [place] [address] Marquise Salinas MD Social History Tobacco Use [...] (pediatric) documented in this encounter Care Teams Research Soil Scientist Relationship Specialty Start Date End Date Pb Su MD [address] [place], [place] [id number] PCP - General 04/26/16 Pb Su MD [address] [place], [place] [id number] PCP - General 05/19/15 04/25/16 Pb Su MD [address] [place], [place] [address] PCP - General 12/07/14 05/18/15 Pb Su MD [address] [place] [address] PCP - General 12/05/14 12/06/14 Pb Su MD [address] [place] [address] PCP - General 03/23/14 12/04/14 Pb Su MD [address] [place], [place] [address] PCP - General 03/21/14 03/22/14 Pb Su MD [address] [place], [place] [address] PCP - General 03/16/14 03/20/14 Pb Su MD [address] [place], [place] [address] PCP - General 03/14/14 03/15/14 Pb Su MD [address] [place] [address] PCP - General 03/09/14 03/13/14 Pb Su MD [address] [place] [address]609 PCP - General 03/02/14 03/08/14 Pb Su MD [address] [place] [address] PCP - General 02/28/14 03/01/14 Pb Su MD [address] [place] 125369 PCP - General 02/25/14 02/27/14 Pb Su MD [address] [place] [address] PCP - General 02/23/14 02/24/14 Pb Su MD [address] [place] [address] PCP - General 02/17/14 02/22/14 Pb Su MD [address] [place] [address] PCP - General 11/02/13 02/16/14 Pb Su MD [address] [place] [address] PCP - General 09/30/13 11/01/13 Pb Su MD [address] [place], [place] [address] PCP - General 06/10/13 09/29/13 Pb Su MD [address] [place] [address] PCP - General 04/05/13 06/09/13 Pb Su MD [address] [place] [address] PCP - General 09/24/12 04/04/13 Pb Su MD [address] [place] [address]169 PCP - General 06/11/12 09/23/12 Pb Su MD [address] [place] [address] PCP - General 01/02/12 06/10/12 documented as of this encounter
--- OUTSIDE RECORDS SUMMARY | 2024-11-14 10:19 | XMS_ITS | Encounter Summary ---
Author Organization [facility] Address [address] [place] [address]. [place], [place] [address] [place] [address] Care Team Providers Care Curriculum Specialist Name Role Phone Pb Su MD [...] Pb Su MD Primary Care Provider [phone] Pb Su MD Primary Care Provider [phone] Pb Su MD Primary Care Provider [phone] Encounter Details Date Type Department Care Team (Late st Contact Info) Description 12/04/2012 Abstract [facility] Medical [facility] Multispecialty Care - [facility] [address] [place] [address] Seun Mak DO [address] [address] Social History Tobacco Use Types Packs/Day Years Used Date Smoking Tobacco: Never Assessed Sex and Gender Information Value Date Recorded Sex Assigned at Not on file Legal Sex Male 7:22 PM CDT Gender Identity Not on file Sexual Orientation Not on file documented as of this encounter Last Filed Vital Signs Vital Sign Reading Time Taken Comments Blood Pressure 120/80 12/04/2012 8:21 AM PROPERTY CLAIMS MANAGER Pulse - - Temperature - - Respiratory Rate - - Oxygen Saturation - - Inhaled Oxygen Concentration - - Weight 97.5 kg (215 lb) 12/04/2012 8:21 AM PROPERTY CLAIMS MANAGER Height 182.9 cm (6') 12/04/2012 8:21 AM PROPERTY CLAIMS MANAGER Body Mass Index 29.16 12/04/2012 8:21 AM PROPERTY CLAIMS MANAGER documented in this encounter Progress Notes * Seun Mak DO - 12/04/2012 8:15 AM CST Reason For Visit PMD: Dr. Su Chief Complaint right knee pain History of Present Illness the patient states that his right knee pain is unchanged in severity and frequency. He played basketball and had a mild aggravation of his symptoms. He occasionally is doing the home exercises and using ice. He states that he has a busy schedule and does not eat on a regular basis. Therefore, he has not been taking the Relafen. He denies any swelling, giving way, or locking. His primary pain is located in the patellofemoral region. He has no complaint of the left leg or the upper extremity. There is no numbness, tingling, or radicular complaint. Examination: Gait: The patient is ambulatory in the office without any assisted device or limp. General: The patient appears be healthy and there is no evidence for acute illness or infection. Psychiatric: The patient is alert and oriented x3. He has normal mood and affect. Circulation: There is no peripheral edema or acute circulatory compromise to the extremities. Neurologic: Sensation and motor functions are grossly intact to the upper and lower extremities. Skin: Intact to the extremities. Musculoskeletal: The right knee reveals tenderness in the patellofemoral region. The medial and lateral joint lines are nontender. He has no instability with testing of the collateral ligaments. Anterior and posterior drawers are normal and David's has a good endpoint. The hamstrings are nontender as well as the popliteal region. There is no erythema or joint effusion. There is no step off, crepitus, or deformity. Impression: Chondromalacia patella right knee with fissure. Recommendation: Treatment options were discussed. Following a discussion regarding options, the patient would like to proceed with an injection. The right knee is injected using sterile technique of Betadine scrub and alcohol prep using 8 cc of Marcaine and 2 cc of Celestone. A sterile Band-Aid is a pplied. He will continue with the home exercises and apply ice after activity. He may also take theRelafen. He will continue with activity modifications. Followup will be in 4 weeks for clinical check. This most likely will improve with nonoperative treatment, however surgery would also remain a possibility for his patellar fissure. All questions were answered. Active Problems 1. Hyperlipidemia 272.4 2. Joint Pain, Localized In The Knee 719.46 3. Lower Back Pain 724.2 4. Premature Ventricular Contractions 427.69 Past Medical History 1. History of Adult Sleep Apnea 780.57 2. History of Arthritis V13.4 3. History of Hypercholesterolemia 272.0 4. History of Primary Snoring 786.09 Social History ?? Alcohol Use ?? Former Smoker V15.82 Allergies 1. Acetaminophen-Codeine #3 TABS Vitals 04Dec2012 08:21AM Systolic 120 Diastolic 80 BMI Calculated 29.12 BSA Calculated 2.2 Height 6 ft Weight 215 lb Assessment 1. Joint Pain, Localized In The Knee 719.46 Plan 1. Call 911 if: You experience a new kind of chest pain (angina) or pressure. 2. Nabumetone 500 MG Oral Tablet; TAKE 2 TABLETS DAILY; Therapy: [id number] to (Evaluate:28Jan2013) Requested for: 04Dec2012; Last Rx:[id number] 3. Call if: The pain is not better in 1 week. 4. Call if: The pain seems worse. 5. Call if: You have pain or numbness from your back to your hip and leg. 6. Call if: You lose weight without trying to. 7. Call if: Your bowel movements are hard, difficult to push out, or if several days have gone by without a bowel movement. 8. Call if: Your temperature is higher than 101F. 9. Seek Immediate Medical Attention if: You have signs of dangerous pressure on the nerves in your pelvis. 10. Seek Immediate Medical Attention if: Your leg becomes weak. 11. Seek Immediate Medical Attention if: Your leg is numb, cold, or tingling. 12. Call if: The symptoms seem worse. 13. Call if: You become dizzy or lightheaded, especially when you stand up after sitting for awhile. 14. Call if: You feel unusually tired. 15. Call if: Your pulse is faster than 100 or is slower than 60 or seems irregular. 16. Seek Immediate Medical Attention if: You are feeling short of breath. 17. Seek Immediate Medical Attention if: You experience a new kind of chest pain (angina) or pressure. 18. Seek Immediate Medical Attention if: You feel your heart is beating very fast or skipping beats. 19. Seek Immediate Medical Attention if: You have fainted or passed out. Signatures Electronically signed by : Seun Mak D.O.; Dec 04 2012 9:36AM (Author) ERTY CLAIMS MANAGER documented in this encounter Plan of Treatment Not on file documented as of this encounter Visit Diagnoses Not on filedocumented in this encounter Care Teams Curriculum Specialist Relationship Specialty Start Date End Date Pb Su MD [address] [place] [address] PCP - General 04/26/16 Pb Su MD [address] [place], [place] [address] PCP - General 05/19/15 04/25/16 Pb Su MD [address] [place], [place] [id number] PCP - General 12/07/14 05/18/15 Pb Su MD [address] [place], [place] [address] PCP - General 12/05/14 12/06/14 Pb Su MD [address] [place], [place] [address] PCP - General 03/23/14 12/04/14 Pb Su MD [address] [place], [place] [address] PCP - General 03/21/14 03/22/14 Pb Su MD [address] [place] [address] PCP - General 03/16/14 03/20/14 Pb Su MD [address] [place] [address] PCP - General 03/14/14 03/15/14 Pb Su MD [address] [place] [address] PCP - General 03/09/14 03/13/14 Pb Su MD [address] [place] [address]229 PCP - General 03/02/14 03/08/14 Pb Su MD [address] [place] [address] PCP - General 02/28/14 03/01/14 Pb Su MD [address] [place] [address] PCP - General 02/25/14 02/27/14 Pb Su MD [address] [place] [address] PCP - General 02/23/14 02/24/14 Pb Su MD [address] [place] [address] PCP - General 02/17/14 02/22/14 Pb Su MD [address] [place] [address] PCP - General 11/02/13 02/16/14 Pb Su MD [address] [place] [address] PCP - General 09/30/13 11/01/13 Pb Su MD [address] [place] [address] PCP - General 06/10/13 09/29/13 Pb Su MD [address] [place] [address] PCP - General 04/05/13 06/09/13 Pb Su MD [address] [place] [address] PCP - General 09/24/12 04/04/13 documented as of this encounter
--- OUTSIDE RECORDS SUMMARY | 2024-11-14 10:19 | XMS_ITS | Encounter Summary ---
Author Organization [facility] Address [address] [place] [address]. [place], [place] [address] [place] [address] Care Team Providers Care Billing Analyst Name Role Phone Pb Su MD [...] Pb Su MD Primary Care Provider [phone] Pb Su MD Primary Care Provider [phone] Encounter Details Date Type Department Care Team (Late st Contact Info) Description 11/30/[address] [facility] [address] [place] [address] Marquise Salinas MD Social History Tobacco Use [...] apnea documented in this encounter Care Teams Billing Analyst Relationship Specialty Start Date End Date Pb Su MD [address] [place], [place] [id number] PCP - General 04/26/16 Pb Su MD [address] [facility], [place] [address] PCP - General 05/19/15 04/25/16 Pb Su MD [address] [place], [place] [address] PCP - General 12/07/14 05/18/15 Pb Su MD [address] [place], [place] [address] PCP - General 12/05/14 12/06/14 Pb Su MD [address] [place] [address] PCP - General 03/23/14 12/04/14 Pb Su MD [address] [place] [address] PCP - General 03/21/14 03/22/14 Pb Su MD [address] [place] [address] PCP - General 03/16/14 03/20/14 Pb Su MD [address] [place] [address] PCP - General 03/14/14 03/15/14 Pb Su MD [address] [place] [address] PCP - General 03/09/14 03/13/14 Pb Su MD [address] [place], [place] [address]349 PCP - General 03/02/14 03/08/14 Pb Su MD [address] [place], [place] [address] PCP - General 02/28/14 03/01/14 Pb Su MD [address] [place] [address] PCP - General 02/25/14 02/27/14 Pb Su MD [address] [place] [address] PCP - General 02/23/14 02/24/14 Pb Su MD [address] [place] [address] PCP - General 02/17/14 02/22/14 Pb Su MD [address] [place] [address] PCP - General 11/02/13 02/16/14 Pb Su MD [address] [place] [address] PCP - General 09/30/13 11/01/13 Pb Su MD [address] [place] [address] PCP - General 06/10/13 09/29/13 Pb Su MD [address] [place], [place] [address] PCP - General 04/05/13 06/09/13 Pb Su MD [address] [place] [address] PCP - General 09/24/12 04/04/13 documented as of this encounter
--- OUTSIDE RECORDS SUMMARY | 2024-11-14 10:19 | XMS_ITS | Encounter Summary ---
Author Organization [facility] Address [address] [place] [address]. [place], [place] [address] [place] [address] Care Team Providers Care Broom Handle Dipper Name Role Phone Pb Su MD Primary [...] Pb Su MD Primary Care Provider +[phone] Pb Su MD Primary Care Provider +[phone] Pb Su MD Primary Care Provider Pb Su MD Primary Care Provider +[phone] Pb Su MD Primary Care Provider +[phone] Sussy Zavala MD Primary Care Provider [phone] Fernie Erickson MD Primary Care Provider Unav ailable Encounter Details Date Type Department Care Team (Latest Contact Info) Description 10/01/2010 Abstract [facility] Social History Tobacco Use [...] on filedocumented in this encounter Care Teams Broom Handle Dipper Relationship Specialty Start Date End Date Pb Su MD [address] [place], [place] [id number] PCP - General 04/26/16 Pb Su MD [address] [place], [place] [id number] PCP - General 05/19/15 04/25/16 Pb Su MD [address] [place] [id number] PCP - General 12/07/14 05/18/15 Pb Su MD [address] [place] [address] PCP - General 12/05/14 12/06/14 Pb Su MD [address] [place] [address] PCP - General 03/23/14 12/04/14 Pb Su MD [address] [place] [address]279 PCP - General 03/21/14 03/22/14 Pb Su MD [address] [place] 89[address]79 PCP - General 03/16/14 03/20/14 Pb Su MD [address] [place] [address]889 PCP - General 03/14/14 03/15/14 Pb Su MD [address] [place] [address]139 PCP - General 03/09/14 03/13/14 Pb Su MD [address] [place] [address]449 PCP - General 03/02/14 03/08/14 Pb Su MD [address] [place] [address] PCP - General 02/28/14 03/01/14 Pb Su MD [address] [place] [address] PCP - General 02/25/14 02/27/14 Pb Su MD [address] [place] [address]259 PCP - General 02/23/14 02/24/14 Pb Su MD [address] [place] 9[address]349 PCP - General 02/17/14 02/22/14 Pb Su MD [address] [place] [address] PCP - General 11/02/13 02/16/14 Pb Su MD [address] [place] 9[address]39 PCP - General 09/30/13 11/01/13 Pb Su MD [address] [place] 37[address] PCP - General 06/10/13 09/29/13 Pb Su MD [address] [place] [address] PCP - General 04/05/13 06/09/13 Pb Su MD [address] [place] [address] PCP - General 09/24/12 04/04/13 Pb Su MD [address] [place] [address] PCP - General 06/11/12 09/23/12 Pb Su MD [address] [place] [address] PCP - General 01/02/12 06/10/12 Pb Su MD [address] [place] [address] PCP - General 10/03/11 01/01/12 Sussy Zavala MD [address] [facility] [address] [place] [address] PCP - General 08/05/11 10/02/11 Fernie Erickson MD [address] [facility] [address] [place] [address] PCP - General 10/06/10 08/04/11 documented as of this encounter
--- OUTSIDE RECORDS SUMMARY | 2024-11-14 10:19 | XMS_ITS | Encounter Summary ---
Author Organization [facility] Address [address] [place] [address]. [place], [place] [address] [place] [address] Care Team Providers Care Rehabilitation Supervisor Name Role Phone Pb Su MD [...] Pb Su MD Primary Care Provider +[phone] Pb Su MD Primary Care Provider +[phone] Pb Su MD Primary Care Provider +[phone] Pb Su MD Primary Care Provider +[phone] Pb Su MD Primary Care Provider +[phone] Sussy Zavala MD Primary Care Provider [phone] Fernie Erickson MD Primary Care Provider Unav ailable Encounter Details Date Type Department Care Team (Late st Contact Info) Description 04/13/2010 Abstract [facility] [address] [place], [place] [id number] Pb Su MD [address] [place], [place] [address] Social History Tobacco Use Types Packs/Day Years [...] on filedocumented in this encounter Care Teams Rehabilitation Supervisor Relationship Specialty Start Date End Date Pb Su MD [address] [place], [place] 435359 PCP - General 04/26/16 Pb Su MD [address] [place] 0[address]39 PCP - General 05/19/15 04/25/16 Pb Su MD [address] [place] [address] PCP - General 12/07/14 05/18/15 Pb Su MD [address] [place] [address] PCP - General 12/05/14 12/06/14 Pb Su MD [address] [place] [address] PCP - General 03/23/14 12/04/14 Pb Su MD [address] [place] [address] PCP - General 03/21/14 03/22/14 Pb Su MD [address] [place] [address] PCP - General 03/16/14 03/20/14 Pb Su MD [address] [place] 8[address]059 PCP - General 03/14/14 03/15/14 Pb Su MD [address] [place] 5[address]29 PCP - General 03/09/14 03/13/14 Pb Su MD [address] [place] [address] PCP - General 03/02/14 03/08/14 Pb Su MD [address] [place] [address] PCP - General 02/28/14 03/01/14 Pb Su MD [address] [place] [address] PCP - General 02/25/14 02/27/14 Pb Su MD [address] [place] [address] PCP - General 02/23/14 02/24/14 Pb Su MD [address] [place] [address]69 PCP - General 02/17/14 02/22/14 Pb Su MD [address] [place] [address]409 PCP - General 11/02/13 02/16/14 Pb Su MD [address] [place] 89[address]29 PCP - General 09/30/13 11/01/13 Pb Su MD [address] [place] [address] PCP - General 06/10/13 09/29/13 Pb Su MD [address] [place] 9[address]39 PCP - General 04/05/13 06/09/13 Pb Su MD [address] [place] [address] PCP - General 09/24/12 04/04/13 Pb Su MD [address] [place] [address] PCP - General 06/11/12 09/23/12 Pb Su MD [address] [place] [address] PCP - General 01/02/12 06/10/12 Pb Su MD [address] [place] [address] PCP - General 10/03/11 01/01/12 Sussy Zavala MD [facility] [address] [place] [address] PCP - General 08/05/11 10/02/11 Fernie Erickson MD [facility]. [facility] [address] [place] [address] PCP - General 10/06/10 08/04/11 documented as of this encounter
--- OUTSIDE RECORDS SUMMARY | 2024-11-14 10:19 | XMS_ITS | Encounter Summary ---
Author Organization [facility] Address [address] [place] [address]. [place], [place] [address] [place] [address] Care Team Providers Care Cage Unloader Name Role Phone Pb Su MD Primary [...] Pb Su MD Primary Care Provider +1- [phone] Pb Su MD Primary Care Provider +[phone]- [phone] Encounter Details Date Type Department Care Team (Late st Contact Info) Description 09/24/[address] [facility] [address] [place] [address] Marquise Salinas MD Social History Tobacco Use [...] apnea documented in this encounter Care Teams Cage Unloader Relationship Specialty Start Date End Date Pb Su MD [address] [place] [address] PCP - General 04/26/16 Pb Su MD [address] [facility] [place] [address] PCP - General 05/19/15 04/25/16 Pb Su MD [address] [place], [place] [address] PCP - General 12/07/14 05/18/15 Pb Su MD [address] [place] [address] PCP - General 12/05/14 12/06/14 Pb Su MD [address] [place] [address] PCP - General 03/23/14 12/04/14 Pb Su MD [address] [place] [address] PCP - General 03/21/14 03/22/14 Pb Su MD [address] [place] [address] PCP - General 03/16/14 03/20/14 Pb Su MD [address] [place] [address] PCP - General 03/14/14 03/15/14 Pb Su MD [address] [place] [address] PCP - General 03/09/14 03/13/14 Pb Su MD [address] [place] [address]189 PCP - General 03/02/14 03/08/14 Pb Su MD [address] [place] [address]369 PCP - General 02/28/14 03/01/14 Pb Su MD [address] [place] [address] PCP - General 02/25/14 02/27/14 Pb Su MD [address] [place] [address] PCP - General 02/23/14 02/24/14 Pb Su MD [address] [place] [address] PCP - General 02/17/14 02/22/14 Pb Su MD [address] [place] [address] PCP - General 11/02/13 02/16/14 Pb Su MD [address] [place] [address] PCP - General 09/30/13 11/01/13 Pb Su MD [address] [place] [address] PCP - General 06/10/13 09/29/13 Pb Su MD [address] [place] 96[address]69 PCP - General 04/05/13 06/09/13 Pb Su MD [address] [place] [address] PCP - General 09/24/12 04/04/13 documented as of this encounter
--- OUTSIDE RECORDS SUMMARY | 2024-11-14 10:19 | XMS_ITS | Encounter Summary ---
Author Organization [facility] Address [address] [place] [address]. [place], [place] [address] [place] [address] Care Team Providers Care Outside Plant Engineer Name Role Phone Pb Su MD [...] Pb Su MD Primary Care Provider [phone] Pb uS MD Primary Care Provider [phone] Pb Su MD Primary Care Provider +[phone] Pb Su MD Primary Care Provider +[phone] Pb Su MD Primary Care Provider +[phone] Sussy Zavala MD Primary Care Provider [phone] Fernie Erickson MD Primary Care Provider Unav ailable Encounter Details Date Type Department Care Team (Late st Contact Info) Description 12/05/2009 Abstract [facility] Diagnostic Imaging [address] [place], [place] [id number] Pb Su MD [address] [place], [place] [address] Social History Tobacco Use Types Packs/Day Years [...] on filedocumented in this encounter Care Teams Outside Plant Engineer Relationship Specialty Start Date End Date Pb Su MD [address] [place], [place] [address] PCP - General 04/26/16 Pb Su MD [address] [place], [place] 6[address]049 PCP - General 05/19/15 04/25/16 Pb Su MD [address] [place] [address] PCP - General 12/07/14 05/18/15 Pb Su MD [address] [place] [address] PCP - General 12/05/14 12/06/14 Pb Su MD [address] [place] [address] PCP - General 03/23/14 12/04/14 Pb Su MD [address] [place] [address] PCP - General 03/21/14 03/22/14 Pb Su MD [address] [place] [address] PCP - General 03/16/14 03/20/14 Pb Su MD [address] [place] [address]449 PCP - General 03/14/14 03/15/14 Pb Su MD [address] [place] [address] PCP - General 03/09/14 03/13/14 Pb Su MD [address] [place] [address] PCP - General 03/02/14 03/08/14 Pb Su MD [address] [place] [address] PCP - General 02/28/14 03/01/14 Pb Su MD [address] [place] [address] PCP - General 02/25/14 02/27/14 Pb Su MD [address] [place] [address] PCP - General 02/23/14 02/24/14 Pb Su MD [address] [place] [address] PCP - General 02/17/14 02/22/14 Pb Su MD [address] [place] [address] PCP - General 11/02/13 02/16/14 Pb Su MD [address] [place] [address] PCP - General 09/30/13 11/01/13 Pb Su MD [address] [place] [address] PCP - General 06/10/13 09/29/13 Pb Su MD [address] [place] [address] PCP - General 04/05/13 06/09/13 Pb Su MD [address] [place] [address] PCP - General 09/24/12 04/04/13 Pb Su MD [address] [place] [address] PCP - General 06/11/12 09/23/12 Pb Su MD [address] [place] [address] PCP - General 01/02/12 06/10/12 Pb Su MD [address] [place] [address] PCP - General 10/03/11 01/01/12 Sussy Zavala MD [facility] [address] [place] [address] PCP - General 08/05/11 10/02/11 Fernie Erickson MD [facility]. [facility] [address] [place] [address] PCP - General 10/06/10 08/04/11 documented as of this encounter
--- OUTSIDE RECORDS SUMMARY | 2024-11-14 10:19 | XMS_ITS | Encounter Summary ---
Author Organization [facility] Address [address] [place] [address]. [place], [place] [address] [place] [address] Care Team Providers Care Survey Instrument Operator Name Role Phone Pb Su MD Primary Care Provider +[phone] Pb Su MD Primary Care Provider Pb [...] Pb Su MD Primary Care Provider +[phone] Pb Su MD Primary Care Provider +[phone] Pb Su MD Primary Care Provider +[phone] Pb Su MD Primary Care Provider +[phone] Pb Su MD Primary Care Provider [phone] Sussy Zavala MD Primary Care Provider [phone] Fernie Erickson MD Primary Care Provider Unav ailable Encounter Details Date Type Department Care Team (Late st Contact Info) Description 10/06/2009 Abstract [facility] [address] [place], [place] [phone] Pb Su MD [address] [place], [place] [address] Social History Tobacco Use Types Packs/Day Years [...] on filedocumented in this encounter Care Teams Survey Instrument Operator Relationship Specialty Start Date End Date Pb Su MD [address] [place], [place] [address]249 PCP - General 04/26/16 Pb Su MD [address] [place] [address] PCP - General 05/19/15 04/25/16 Pb uS MD [address] [place] [address] PCP - General 12/07/14 05/18/15 Pb Su MD [address] [place] [address] PCP - General 12/05/14 12/06/14 Pb Su MD [address] [place] [address] PCP - General 03/23/14 12/04/14 Pb Su MD [address] [place] [address] PCP - General 03/21/14 03/22/14 Pb Su MD [address] [place] [address] PCP - General 03/16/14 03/20/14 Pb Su MD [address] [place] [address] PCP - General 03/14/14 03/15/14 Pb Su MD [address] [place], [place] 33[address] PCP - General 03/09/14 03/13/14 Pb Su MD [address] [place] [address] PCP - General 03/02/14 03/08/14 Pb Su MD [address] [place] [address] PCP - General 02/28/14 03/01/14 Pb Su MD [address] [place] [address] PCP - General 02/25/14 02/27/14 Pb Su MD [address] [place] [address] PCP - General 02/23/14 02/24/14 Pb Su MD [address] [place] [address] PCP - General 02/17/14 02/22/14 Pb Su MD [address] [place], [place] 39[address]39 PCP - General 11/02/13 02/16/14 Pb Su MD [address] [place] [address]609 PCP - General 09/30/13 11/01/13 Pb Su MD [address] [place] [address] PCP - General 06/10/13 09/29/13 Pb Su MD [address] [place], [place] [address] PCP - General 04/05/13 06/09/13 Pb Su MD [address] [place] [address] PCP - General 09/24/12 04/04/13 Pb Su MD [address] [place] [address] PCP - General 06/11/12 09/23/12 Pb Su MD [address] [place] [address] PCP - General 01/02/12 06/10/12 Pb Su MD [address] [place] [address]709 PCP - General 10/03/11 01/01/12 Sussy Zavala MD [facility] [address] [place] [address] PCP - General 08/05/11 10/02/11 Fernie Erickson MD [facility]. [facility] [address] [place] [address] PCP - General 10/06/10 08/04/11 documented as of this encounter
--- OUTSIDE RECORDS SUMMARY | 2024-11-14 10:19 | XMS_ITS | Encounter Summary ---
Author Organization [facility] Address [address] [place] [address]. [place], [place] [address] [place] [address] Care Team Providers Care Program Support Assistant Name Role Phone Pb Su MD [...] Pb Su MD Primary Care Provider [phone] Pb Su MD Primary Care Provider +[phone] Pb Su MD Primary Care Provider +[phone] Pb Su MD Primary Care Provider +[phone] Pb Su MD Primary Care Provider +[phone] Sussy Zavala MD Primary Care Provider [phone] Fernie Erickson MD Primary Care Provider Unav ailable Encounter Details Date Type Department Care Team (Late st Contact Info) Description 08/27/[address] [facility] Diagnostic Imaging [address] [place], [place] [phone] Pb Su MD [address] [place], [place] [address] Social History Tobacco Use Types Packs/Day Years [...] on filedocumented in this encounter Care Teams Program Support Assistant Relationship Specialty Start Date End Date Pb Su MD [address] [place], [place] [address] PCP - General 04/26/16 Pb Su MD [address] [place] [address] PCP - General 05/19/15 04/25/16 Pb Su MD [address] [place] [address] PCP - General 12/07/14 05/18/15 Pb Su MD [address] [place] [address] PCP - General 12/05/14 12/06/14 Pb Su MD [address] [place] [address] PCP - General 03/23/14 12/04/14 Pb Su MD [address] [place] [address] PCP - General 03/21/14 03/22/14 Pb Su MD [address] [place] [address] PCP - General 03/16/14 03/20/14 Pb Su MD [address] [place] [address] PCP - General 03/14/14 03/15/14 Pb Su MD [address] [place] [address] PCP - General 03/09/14 03/13/14 Pb Su MD [address] [place] [address] PCP - General 03/02/14 03/08/14 Pb Su MD [address] [place] [address] PCP - General 02/28/14 03/01/14 Pb Su MD [address] [place] [address] PCP - General 02/25/14 02/27/14 Pb Su MD [address] [place] [address] PCP - General 02/23/14 02/24/14 Pb Su MD [address] [place] 4[address] PCP - General 02/17/14 02/22/14 Pb Su MD [address] [place] [address]459 PCP - General 11/02/13 02/16/14 Pb Su MD [address] [place], [place] [address]509 PCP - General 09/30/13 11/01/13 Pb Su MD [address] [place] [address] PCP - General 06/10/13 09/29/13 Pb Su MD [address] [place] [address] PCP - General 04/05/13 06/09/13 Pb Su MD [address] [place] [address] PCP - General 09/24/12 04/04/13 Pb Su MD [address] [place] [address] PCP - General 06/11/12 09/23/12 Pb Su MD [address] [place] [address] PCP - General 01/02/12 06/10/12 Pb Su MD [address] [place], [place] [address] PCP - General 10/03/11 01/01/12 Sussy Zavala MD [facility] [address] [place] [address] PCP - General 08/05/11 10/02/11 Fernie Erickson MD [facility]. [facility] [address] [place] [address] PCP - General 10/06/10 08/04/11 documented as of this encounter
--- OUTSIDE RECORDS SUMMARY | 2024-11-14 10:19 | XMS_ITS | Encounter Summary ---
Author Organization [facility] Address [address] [place] [address]. [place], [place] [address] [place] [address] Care Team Providers Care Brownfield Redevelopment Specialist Name Role Phone Pb Su MD [...] Pb Su MD Primary Care Provider +[phone]- [phone] Encounter Details Date Type Department Care Team (Latest Contact Info) Description 08/10/2012 Abstract [facility] Social History Tobacco Use [...] on filedocumented in this encounter Care Teams Brownfield Redevelopment Specialist Relationship Specialty Start Date End Date Pb Su MD [address] [place], [place] [id number] PCP - General 04/26/16 Pb Su MD [address] [place], [place] [address] PCP - General 05/19/15 04/25/16 Pb Su MD [address] [place] [address] PCP - General 12/07/14 05/18/15 Pb Su MD [address] [place] [address] PCP - General 12/05/14 12/06/14 Pb Su MD [address] [place] [address] PCP - General 03/23/14 12/04/14 Pb Su MD [address] [place] [address]159 PCP - General 03/21/14 03/22/14 Pb Su MD [address] [place] [address] PCP - General 03/16/14 03/20/14 Pb Su MD [address] [place], [place] [address]679 PCP - General 03/14/14 03/15/14 Pb Su MD [address] [place] [address] PCP - General 03/09/14 03/13/14 Pb Su MD [address] [place] [address] PCP - General 03/02/14 03/08/14 Pb Su MD [address] [place] [address] PCP - General 02/28/14 03/01/14 Pb Su MD [address] [place] [address] PCP - General 02/25/14 02/27/14 Pb Su MD [address] [place] [address] PCP - General 02/23/14 02/24/14 Pb Su MD [address] [place] [address] PCP - General 02/17/14 02/22/14 Pb Su MD [address] [place], [place] [address]329 PCP - General 11/02/13 02/16/14 Pb Su MD [address] [place] [address] PCP - General 09/30/13 11/01/13 Pb Su MD [address] [place] [address] PCP - General 06/10/13 09/29/13 Pb Su MD [address] [place] [address] PCP - General 04/05/13 06/09/13 Pb Su MD [address] [place] [address] PCP - General 09/24/12 04/04/13 Pb Su MD [address] [place] [address] PCP - General 06/11/12 09/23/12 documented as of this encounter
--- OUTSIDE RECORDS SUMMARY | 2024-11-14 10:19 | XMS_ITS | Encounter Summary ---
Author Organization [facility] Address [address] [place] [address]. [place], [place] [id number] [place] [address] Care Team Providers Care Axle Polisher Name Role Phone Pb Su MD Primary [...] Provider Pb Su MD Primary Care Provider [phone]- [phone] Encounter Details Date Type Department Care Team (Late st Contact Info) Description 06/10/2013 Abstract [facility] - [place] [address], [address] [place] [phone] Pb Su MD [address] [place], [place] [id number] Social History Tobacco Use Types Packs/Day Years Used Date Smoking Tobacco: Never Assessed Sex and Gender Information Value Date Recorded Sex Assigned at Not on file Legal Sex Male 7:22 PM CDT Gender Identity Not on file Sexual Orientation Not on file documented as of this encounter Last Filed Vital Signs Vital Sign Reading Time Taken Comments Blood Pressure 122/80 06/10/2013 8:12 AM CDT Pulse 76 06/10/2013 8:12 AM CDT Temperature - - Respiratory Rate - - Oxygen Saturation - - Inhaled Oxygen Concentration - - Weight 98.9 kg (218 lb) 06/10/2013 8:12 AM CDT Height 182.9 cm (6') 06/10/2013 8:12 AM CDT Body Mass Index 29.57 06/10/2013 8:12 AM CDT documented in this encounter Progress Notes * Pb Su MD - 06/10/2013 5:23 PM CDT Verified Results CBC WO Diff ( Hemogram ) [id number] 10:05AM Pb Su Test Name Result Flag Reference White Blood Cell Count (WBC) 4.7 X10'3/uL L 4.8-10.8 Red Blood Cell Count (RBC) 5.01 X10'6/uL 4.70-6.10 Hemoglobin (HGB) 14.8 g/dL 14.0-18.0 Hematocrit (HCT) 43.2 % 42.0-52.0 Mean Corpuscular Volume (MCV) 86.2 fL 80.0-94.0 Mean Corpuscular Hgb (MCH) 29.5 pg 27.0-31.0 Mean Corpuscular Hgb Conc (MCH 34.3 g/dL 32.0-36.0 Red Cell Distrib Width (RDW) 13.2 % 11.5-14.5 Platelet Count (PLT) 270 X10'3/uL 130-400 Mean Platelet Volume (MPV) 9.1 fL 7.0-10.4 Compr Metabolic Prof ( CMP ) 10Jun2013 10:05AM Pb Su Test Name Result Flag Reference Sodium (Na) 137 mmol/L 136-145 Potassium (K) 4.4 mmol/L 3.5-5.1 Chloride (Cl) 100 mmol/L 98-107 CREATININE 1.05 mg/dL 0.70-1.20 Carbon Dioxide (CO2) 27 mmol/L 22-29 Blood Urea Nitrogen (BUN) 13 mg/dL 8-23 Glomerular Filt Rate Calc >60 mL/min/1.73m'2 >60 >60 NOTE: eGFR is not calculated for patients <18 years of age. This is an estimated GFR (CKD EPI) and should not be used for calculating drug doses. mL/min/1.73m'2 Anion Gap 14 8-20 Glucose 84 mg/dL 70-99 Calcium 9.9 mg/dL 8.6-10.2 Total Bilirubin 0.5 mg/dL 0.2-1.2 AST/GOT 23 IU/L 0-40 ALT/GPT 27 IU/L 0-41 Alkaline Phosphatase (ALKP) 64 IU/L 40-129 Total Protein 6.9 g/dL 6.4-8.3 Albumin 4.7 g/dL 3.5-5.2 Globulin, Calc 2.2 g/dL L 2.3-3.6 A:G Ratio 2.1 H 1.0-2.0 Lipid Profile 10Jun2013 10:05AM Pb Su Test Name Result Flag Reference Cholesterol 274 mg/dL H <200 Triglycerides 214 mg/dL H <150 HDL Cholesterol 43 mg/dL L >59 LDL Cholesterol, Calculated 188 mg/dL H <100 VLDL Cholesterol 43 mg/dL 5-55 Non HDL, Calc 231 mg/dL H <130 NOTE: WHEN THE TRIGLYCERIDES ARE >200 mg/dL, NON HDL C IS A SECONDARY TARGET OF THERAPY, WITH A GOAL 30 mg/dL HIGHER THAN THE IDENTIFIED LDL C GOAL. Cholesterol/HDL Ratio 6.4 H 0.0-4.5 NIH CONCENSUS REPORT RECOMMENDATIONS: ADULT CHILD LOW RISK: CHOLESTEROL <200 <170 TRIGLYCERIDE <150 --- HDL >=60 --- LDL <100 <110 BORDERLINE: CHOLESTEROL 200-239 170-199 TRIGLYCERIDE 150-199 --- HDL 40-59 --- LDL 100-159 110-129 HIGH RISK: CHOLESTEROL >=240 >=200 TRIGLYCERIDE >=200 --- HDL <40 --- LDL >=160 >=130 TSH W Reflex Free T4 [id number] 10:05AM Pb Su Test Name Result Flag Reference TSH w Reflex Free T4 1.29 mIU/mL 0.27-4.20 FREE T4 NOT INDICATED Prostate Specif Ag ( PSA ) Scrn [id number] 10:05AM Pb Su Test Name Result Flag Reference Prostate Specific Antigen 0.760 ng/mL <4.0 TEST WAS PERFORMED USING THE YADI METHOD. PSA VALUES OBTAINED WITH OTHER ASSAY METHODS OR KITS CANNOT BE USED INTERCHANGEABLY WITH RESULTS OBTAINED BY THE YADI METHOD. RER CONSTRUCTION OR LEAK GANG * Pb Su MD - 06/10/2013 8:00 AM CDT Reason For Visit Reason For Visit: Acute Visit Chief Complaint Chief Complaint Free Text: Pt here for a follow up on fatigue. Still having issue. History of Present Illness HPI Free Text: HPI: 48 yo male with multiple medical issues and concerns to include fatigue, HLP, atrial fibrillation! As customary, we performed history,exam, developed differentisl diagnosis, evaluation and treatment plan! HM, Adult Male: The patient is being seen for a health maintenance evaluation. Social History: Household members include spouse. He is . 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 He reports rare alcohol use. He has never used illicit drugs. General Health: The patient's health since the last visit is described as good. He has regular dental visits. Immunizations status: not up to date. Lifestyle:. He consumes a diverse and healthy diet. He does not have any weight concerns. He exercises regularly. Reproductive health:. The patient is sexually active. [...] no neck discomfort and no chest pain. Fatigue: The patient is being seen for an initial evaluation of fatigue. Symptoms: fatigue. The patient is currently experiencing symptoms. Onset was sudden 3-4 weeks week(s) ago. The symptoms occur frequently. The episodes occur daily. He describes this as mild and unchanged. Exacerbating factors:physical activity and stress. No relieving factors are noted. Associated symptoms: poor sleep, somnolence and arthralgias, but no cognitive impairment, no anxiety, no depressed mood, no myalgias, no fever, no swollen glands, no cough, no dyspnea, no irregular heartbeat, no chest pain, no abdominal pain, no nausea, no vomiting, no diarrhea, no constipation, no change in weight, no heat intolerance, no cold intolerance, no polyuria and no polydipsia. The patient is not currently being treated forthis problem. By report, there is poor symptom control. Pertinent medical history: insomnia and obstructive sleep apnea. Risk factors: non compliance with CPAP. Atrial Fibrillation (Follow-Up): The patient presents with paroxysmal atrial fibrillation. The treatment strategy for this patient is rhythm control. He states his atrial fibrillation has been well controlled since the last visit. He has no comorbid illnesses. He has no significant interval events. Symptoms: Denies palpitations, denies chest pain, denies exercise intolerance, denies dyspnea on exertion, denies dizziness and denies . Associated symptoms include no syncope, no focal neurologic deficit, no tendency for easy bleeding and no tendency for easy bruising. Lifestyle: Diet: He does not have a healthy diet.Weight Issues: He has weight concerns.Exercise: Heexercises regularly.Smoking: He does not use tobacco.Alcohol: He denies alcohol use.Drug Use: He denies drug use. Risks: no increased risk for falling. Medications: The patient is not currently on any medications for his atrial fibrillation. Disease Management: The patient is doing well with his goals. The patient is due for thyroid function tests. Review of Systems Focused-Male: Constitutional: feeling poorly and feeling tired. ENT: nasal discharge. Cardiovascular: Normal. Respiratory: Normal. Gastrointestinal: Normal. Genitourinary: Normal. Integumentary: Normal. Musculoskeletal: arthralgias and joint stiffness. Neurological: Normal. Psychiatric: Normal. Active Problems 1. Hyperlipidemia 272.4 2. Joint Pain, Localized In The Knee 719.46 3. Lower Back Pain 724.2 4. Premature Ventricular Contractions 427.69 Past Medical History 1. History of Adult Sleep Apnea 780.57 2. History of Arthritis V13.4 3. History of Hypercholesterolemia 272.0 4. History of Primary Snoring 786.09 Social History ?? Alcohol Use ?? Former Smoker V15.82 Current Meds 1. No Reported Medications Recorded; Record; Last Updated By: Denisse Ceja Allergies 1. Acetaminophen-Codeine #3 TABS Vitals Vital Signs [Data Includes: Current Encounter] [id number] 08:12AM Temperature 98 F, Oral Heart Rate 76, L Radial Pulse Quality Regular, L Radial Respiration 16 Respiration Quality Normal Systolic 122, LUE, Sitting Diastolic 80, LUE, Sitting BMI Calculated 29.53 BSA Calculated 2.21 Height 6 ft Weight 218 lb Pain Scale 0 Physical Exam Constitutional General appearance: No acute distress, well appearing and well nourished. Eyes Conjunctiva and lids: No swelling, erythema, or discharge. Pupils and irises: Equal, round and reactive to light. Ears, Nose, Mouth, and Throat Oropharynx: Normal with no erythema, edema, exudate [...] finger to nose and heel to paez. Results/Data Encounter Results CBC WO Diff ( Hemogram ) [id number] 10:05AM Pb Su Test Name Result Flag Reference White Blood Cell Count (WBC) 4.7 X10'3/uL L 4.8-10.8 Red Blood Cell Count (RBC) 5.01 X10'6/uL 4.70-6.10 Hemoglobin (HGB) 14.8 g/dL 14.0-18.0 Hematocrit (HCT) 43.2 % 42.0-52.0 Mean Corpuscular Volume (MCV) 86.2 fL 80.0-94.0 Mean Corpuscular Hgb (MCH) 29.5 pg 27.0-31.0 Mean Corpuscular Hgb Conc (MCH 34.3 g/dL 32.0-36.0 Red Cell Distrib Width (RDW) 13.2 % 11.5-14.5 Platelet Count (PLT) 270 X10'3/uL 130-400 Mean Platelet Volume (MPV) 9.1 fL 7.0-10.4 Assessment 1. Fatigue 780.79 2. Hyperlipidemia 272.4 3. Vitamin D Deficiency 268.9 4. Lower Back Pain 724.2 5. Atrial Fibrillation 427.31 Plan 1. Compr Metabolic Prof ( CMP ) Requested for: [id number] Ordered; For: Hyperlipidemia (272.4); Ordered By: Pb Su Perform: [facility] Due: [id number] 2. Lipid Profile Requested for: [id number] Ordered; For: Hyperlipidemia (272.4); Ordered By: Pb Su Perform: [facility] Due: [id number] 3. CBC WO Diff ( Hemogram ) Done: 10Jun2013 10:05AM Ordered; For: Hyperlipidemia (272.4), Fatigue (780.79); Ordered By: Pb Su Performed: [facility] Due: [id number] 4. TSH W Reflex Free T4 Done: 10Jun2013 10:05AM Ordered; For: Hyperlipidemia (272.4), Fatigue (780.79); Ordered By: Pb Su Performed: [facility] Due: [id number] 5. Nabumetone 500 MG Oral Tablet; TAKE 2 TABLETS DAILY; Therapy: [id number] to [id number]; Last Rx:[id number]; Status: DISCONTINUED Ordered; For: Joint Pain, Localized In The Knee (719.46); Rx By: Seun Mak; Dispense: 30 Days; #:60 Tablet; Refill: 2; Sent To: [facility]; Last Updated By: Denisse Ceja 6. Prostate Specif Ag ( PSA ) Scrn Done: 10Jun2013 10:05AM Ordered; For: Visit For: Screening Exam Malignant Neoplasm Prostate (V76.44); Ordered By: Pb Su Performed: [facility] Due: [id number] 7. Vitamin D 25 - Hydroxy Requested for: [id number] Ordered; For: Vitamin D Deficiency (268.9); Ordered By: Pb Su Perform: [facility] Due: [id number] Discussion/Summary Discussion Summary Free Text: Summary: 48 yo male with 3-4 week history of fatigue, malaise, somulence but denies bleeding per rectum, chest pain, depression. Admits to notusing CPAP. As customary, we reviewed PMH, performed history,exam, developed differential to include evaluation/treatment program! Signatures Electronically signed by : Pb Su M.D.; Jun 10 2013 4:33PM (Author) RER CONSTRUCTION OR LEAK GANG documented in this encounter Plan of Treatment Not on file documented as of this encounter Procedures Procedure Name Priority Date/Time Associated Diagnosis Comments TSH W/REFLEX Routine 06/10/2013 10:05 AM CDT PROSTATE SPECIFIC ANTIGEN,TOTAL Routine 06/10/2013 10:05 AM CDT COMPREHENSIVE METABOLIC PANEL Routine 06/10/2013 10:05 AM CDT LIPID PANEL Routine 06/10/2013 10:05 AM CDT CBC, AUTO, NO DIFF Routine 06/10/2013 10 :05 AM CDT VITAMIN D, 25 OH Routine 06/10/2013 10:0 5 AM CDT documented in this encounter Results * (ABNORMAL) CBC, AUTO, NO DIFF (06/10/2013 10:05 AM CDT) WBC 4.7(L) 4.8 - 10.8 X10'3/uL [facility] CONVERSION RBC 5.01 4.70 - 6.10 X10'6/uL [facility] CONVERSION HGB 14.8 14.0 - 18.0 g/dL [facility] CONVERSION HCT 43.2 42.0 - 52.0 % [facility] CONVERSION MCV 86.2 80.0 - 94.0 fL [facility] TO [facility] CONVERSION MCH 29.5 27.0 - 31.0 pg [facility] TO [facility] CONVERSION MCHC 34.3 32.0 - 36.0 g/dL [facility] CONVERSION RDW 13.2 11.5 - 14.5 % [facility] CONVERSION PLT 270 130 - 400 X10'3/uL [facility] CONVERSION GLUCOSE 9.1 7.0 - 10.4 fL [facility] CONVERSION 06/10/2013 10:0 5 AM CDT 06/10/2013 10:05 AM CDT Narrative [facility] CONVERSION - 06/10/2013 3:34 PM CDT Result Communication: No patient communication needed at this time Pb Su MD LABORATORY Final Resul t [facility] TO [facility] CONVERSION * (ABNORMAL) VITAMIN D, 25 OH (06/10/2013 10:05 AM CDT) VITAMIN D 25 HYDROXY S/P/B 28(L) 30 - 100 NG/ML [facility] TO [facility] CONVERSION Comment: Result Comment: ? INTERPRETATION ? DEFICIENT ??<20 ?INSUFFICIENT 20-30 ?SUFFICIENT 30-100 POTENTIAL INTOXICATION ??>100 ? TESTING PERFORMED AT [facility], A MEMBER OF THE [facility]. 06/10/2013 10:0 5 AM CDT 06/10/2013 10:05 AM CDT Narrative [facility] CONVERSION - 06/10/2013 3:34 PM CDT Result Communication: Call patient with results Pb Su MD LABORATORY Final Resul t [facility] CONVERSION * TSH W/REFLEX (SNS) (06/10/2013 10:05 AM CDT) TSH 1.29 0.27 - 4.20 mIU/mL [facility] CONVERSION Comment:Result Comment: FREE T4 NOT INDICATED 06/10/2013 10:0 5 AM CDT 06/10/2013 10:05 AM CDT Narrative [facility] CONVERSION - 06/10/2013 3:34 PM CDT Result Communication: No patient communication needed at this time us Pb Su MD LABORATORY Final Resul t [facility] CONVERSION * (ABNORMAL) COMPREHENSIVE METABOLIC PANEL (06/10/2013 10:05 AM CDT) Pathologist [facility] SODIUM S/P/B 137 136 - 145 mmol/L [facility] TO [facility] CONVERSION POTASSIUM S/P/B 4.4 3.5 - 5.1 mmol/L [facility] TO [facility] CONVERSION CHLORIDE S/P/B 100 98 - 107 mmol/L [facility] CONVERSION CO2 27 22 - 29 mmol/L [facility] TO [facility] CONVERSION ANION GAP 14 8 - 20 [facility] T O EPIC CONVERSION BUN 13 8 - 23 mg/dL [facility] CONVERSION CREATININE S/P/B 1.05 0.70 - 1.20 mg/dL [facility] CONVERSION GFR ESTIMATE >60 >60 mL/min/1 .73m'2 [facility] TO [facility] CONVERSION EGFR AFR. AMER. >60 NOTE: eGFR is not calculated for patients <18 years of age. This is an estimated GFR (CKD EPI) and should not be used for calculating drug doses. >60 mL/min/1 .73m'2 [facility] TO [facility]IC CONVERSION GLUCOSE 84 70 - 99 mg/dL [facility] CONVERSION CALCIUM S/P/B 9.9 8.6 - 10.2 mg/dL [facility] TO [facility] CONVERSION BILIRUBIN TOTAL S/P/B 0.5 0.2 - 1.2 mg/dL [facility] CONVERSION AST 23 0 - 40 IU/L [facility] TO [facility] CONVERSION ALT 27 0 - 41 IU/L [facility] TO [facility] CONVERSION ALKALINE PHOSPHATASE S/P/B 64 40 - 129 IU/L [facility] TO [facility] CONVERSION TOTAL PROTEIN S/P/B 6.9 6.4 - 8.3 g/dL [facility] TO [facility] CONVERSION ALBUMIN S/P/B 4.7 3.5 - 5.2 g/dL [facility] TO [facility] CONVERSION GLOBULIN 2.2(L) 2.3 - 3.6 g/dL [facility] CONVERSION A/G RATIO 2.1(H) 1.0 - 2.0 [facility] CONVERSION 06/10/2013 10:0 5 AM CDT 06/10/2013 10:05 AM CDT Narrative [facility] TO [facility] CONVERSION - 06/10/2013 3:34 PM CDT Result Communication: No patient communication needed at this time Pb Su MD LABORATORY Final Resul t Performing Organization Address [facility] de Phone Number [facility] TO [facility]IC CONVERSION * PROSTATE SPECIFIC ANTIGEN,TOTAL (06/10/2013 10:05 AM CDT) PSA 0.760 <4.0 ng/mL [facility] TO [facility] CONVERSION Comment: Result Comment: TEST WAS PERFORMED USING THE YADI METHOD. ??PSA VALUES OBTAINED WITH OTHER ASSAY METHODS OR KITS CANNOT BE USED INTERCHANGEABLY WITH RESULTS OBTAINED BY THE YADI METHOD. 06/10/2013 10:0 5 AM CDT 06/10/2013 10:05 AM CDT Narrative [facility] TO [facility] CONVERSION - 06/10/2013 3:34 PM CDT Result Communication: No patient communication needed at this time Pb Su MD LABORATORY Final Resul t Performing Organization Address [facility] de Phone Number [facility] TO EPIC CONVERSION * (ABNORMAL) LIPID PANEL (06/10/2013 10:05 AM CDT) CHOLESTEROL 274(H) <200 mg/dL [facility] TO [facility]IC CONVERSION TRIGLYCERIDES 214(H) <150 mg/dL [facility] CONVERSION HDL 43(L) >59 mg/dL [facility] TO [facility] CONVERSION LDL (CALCULATED) 188(H) <100 mg/dL [facility] TO [facility] CONVERSION NON HDL CHOLESTEROL 231(H) <130 mg/dL [facility] CONVERSION Comment: Result Comment: NOTE: WHEN THE TRIGLYCERIDES ARE >200 mg/dL, NON HDL C IS A SECONDARY TARGET OF THERAPY, WITH A GOAL 30 mg/dL HIGHER THAN THE IDENTIFIED LDL C GOAL. CHOL/HDL RATIO 6.4(H) 0.0 - 4.5 [facility] TO [facility]IC CONVERSION VLDL CHOLESTEROL (LMP) 43 5 - 55 mg/dL [facility] TO EPIC [...] ? >=160 ?>=130 [facility] TO [facility]IC CONVERSION 06/10/2013 10:0 5 AM CDT 06/10/2013 10:05 AM CDT Narrative [facility] TO [facility] CONVERSION - 06/10/2013 3:34 PM CDT Result Communication: No patient communication needed at this time Pb Su MD LABORATORY Final Resul t [facility] TO [facility] CONVERSION documented in this encounter Visit Diagnoses Not on filedocumented in this encounter Care Teams Axle Polisher Relationship Specialty Start Date End Date Pb Su MD [address] [place], [place] [address] PCP - General 04/26/16 Pb Su MD [address] [place], [place] [id number] PCP - General 05/19/15 04/25/16 Pb Su MD [address] [place], [place] [address] PCP - General 12/07/14 05/18/15 Pb Su MD [address] [place], [place] [id number] PCP - General 12/05/14 12/06/14 bP Su MD [address] [place], [place] [address] PCP - General 03/23/14 12/04/14 Pb Su MD [address] [place], [place] [id number] PCP - General 03/21/14 03/22/14 Pb Su MD [address] [place] [address] PCP - General 03/16/14 03/20/14 Pb Su MD [address] [place] [address] PCP - General 03/14/14 03/15/14 Pb Su MD [address] [place], [place] [address] PCP - General 03/09/14 03/13/14 Pb Su MD [address] [place] [address] PCP - General 03/02/14 03/08/14 Pb Su MD [address] [place] [address] PCP - General 02/28/14 03/01/14 Pb Su MD [address] [place], [place] [address] PCP - General 02/25/14 02/27/14 Pb Su MD [address] [place], [place] [address] PCP - General 02/23/14 02/24/14 Pb Su MD [address] [place], [place] [address] PCP - General 02/17/14 02/22/14 Pb Su MD [address] [place], [place] [address] PCP - General 11/02/13 02/16/14 Pb Su MD [address] [place], [place] [id number] PCP - General 09/30/13 11/01/13 Pb Su MD [address] [place], [place] [address] PCP - General 06/10/13 09/29/13 documented as of this encounter
--- OUTSIDE RECORDS SUMMARY | 2024-11-14 10:19 | XMS_ITS | Encounter Summary ---
Author Organization [facility] Address [address] [place] [address]. [place], [place] [address] [place] [address] Care Team Providers Care Nurse Rn Bsn Name Role Phone Pb Su MD Primary [...] Pb Su MD Primary Care Provider [phone] Pb Su MD Primary Care Provider [phone] Encounter Details Date Type Department Care Team (Late st Contact Info) Description 04/05/2013 Abstract [facility] [address] [place] [address] Marqusie Salinas MD Social History Tobacco Use Types [...] apnea documented in this encounter Care Teams Nurse Rn Bsn Relationship Specialty Start Date End Date Pb Su MD [address] [place], [place] [address] PCP - General 04/26/16 Pb Su MD [address] [place], [place] [id number] PCP - General 05/19/15 04/25/16 Pb Su MD [address] [place], [place] [address] PCP - General 12/07/14 05/18/15 Pb Su MD [address] '[place], [place] [address] PCP - General 12/05/14 12/06/14 Pb Su MD [address] [place] [address] PCP - General 03/23/14 12/04/14 Pb Su MD [address] [place] [address] PCP - General 03/21/14 03/22/14 Pb Su MD [address] [place], [place] [address] PCP - General 03/16/14 03/20/14 Pb Su MD [address] [place], [place] [address] PCP - General 03/14/14 03/15/14 Pb Su MD [address] [place], [place] [address] PCP - General 03/09/14 03/13/14 Pb Su MD [address] [place] [address] PCP - General 03/02/14 03/08/14 Pb Su MD [address] [place] [address] PCP - General 02/28/14 03/01/14 Pb Su MD [address] [place] [address] PCP - General 02/25/14 02/27/14 Pb Su MD [address] [place] [address] PCP - General 02/23/14 02/24/14 Pb Su MD [address] [place], [place] [address] PCP - General 02/17/14 02/22/14 Pb Su MD [address] [place], [place] [address] PCP - General 11/02/13 02/16/14 Pb Su MD [address] [place], [place] [address] PCP - General 09/30/13 11/01/13 Pb Su MD [address] [place], [place] [address] PCP - General 06/10/13 09/29/13 Pb Su MD [address] [place], [place] [address] PCP - General 04/05/13 06/09/13 documented as of this encounter
--- OUTSIDE RECORDS SUMMARY | 2024-11-14 10:19 | XMS_ITS | Encounter Summary ---
Author Organization [facility] Address [address] [place] [address]. [place], [place] [address] [place] [address] Care Team Providers Care Information Assurance Specialist Name Role Phone Pb Su MD [...] Pb Su MD Primary Care Provider [phone] Pb Su MD Primary Care Provider +[phone] Pb Su MD Primary Care Provider Pb Su MD Primary Care Provider +[phone] Pb Su MD Primary Care Provider [phone] Sussy Zavala MD Primary Care Provider [phone] Fernie Erickson MD Primary Care Provider Unav ailable Encounter Details Date Type Department Care Team (Latest Contact Info) Description 01/03/2011 Abstract [facility] Social History Tobacco Use Types [...] on filedocumented in this encounter Care Teams Information Assurance Specialist Relationship Specialty Start Date End Date Pb Su MD [address] [place], [place] [id number] PCP - General 04/26/16 Pb Su MD [address] [place], [place] [id number] PCP - General 05/19/15 04/25/16 Pb Su MD [address] [place] [id number] PCP - General 12/07/14 05/18/15 Pb Su MD [address] [place] [address] PCP - General 12/05/14 12/06/14 Pb Su MD [address] [place] 98[address]79 PCP - General 03/23/14 12/04/14 Pb Su MD [address] [place] [address]109 PCP - General 03/21/14 03/22/14 Pb Su MD [address] [place] [address] PCP - General 03/16/14 03/20/14 Pb Su MD [address] [place] [address] PCP - General 03/14/14 03/15/14 Pb Su MD [address] [place] 344629 PCP - General 03/09/14 03/13/14 Pb Su MD [address] [place] 9[address]89 PCP - General 03/02/14 03/08/14 Pb Su MD [address] [place] [address] PCP - General 02/28/14 03/01/14 Pb Su MD [address] [place] [address] PCP - General 02/25/14 02/27/14 Pb Su MD [address] [place] 4[address]99 PCP - General 02/23/14 02/24/14 Pb Su MD [address] [place] 696539 PCP - General 02/17/14 02/22/14 Pb Su MD [address] [place] [address] PCP - General 11/02/13 02/16/14 Pb Su MD [address] [place] 840389 PCP - General 09/30/13 11/01/13 Pb Su MD [address] [place] 849869 PCP - General 06/10/13 09/29/13 Pb Su MD [address] [place] [address] PCP - General 04/05/13 06/09/13 Pb Su MD [address] [place] [address] PCP - General 09/24/12 04/04/13 Pb Su MD [address] [place] [address] PCP - General 06/11/12 09/23/12 Pb Su MD [address] [place] [address] PCP - General 01/02/12 06/10/12 Pb Su MD [address] [place] [address] PCP - General 10/03/11 01/01/12 Sussy Zavala MD [address] [place] [address] PCP - General 08/05/11 10/02/11 Fernie Erickson MD [address] [place] [address] PCP - General 10/06/10 08/04/11 documented as of this encounter
--- OUTSIDE RECORDS SUMMARY | 2024-11-14 10:19 | XMS_ITS | Encounter Summary ---
Author Organization [facility] Address [address] [place] [address]. [place], [place] [address] [place] [address] Care Team Providers Care Plc Programmer Name Role Phone Pb Su MD [...] Pb Su MD Primary Care Provider [phone] Pb Su MD Primary Care Provider [phone] Pb Su MD Primary Care Provider [phone] Encounter Details Date Type Department Care Team (Latest Contact Info) Description 09/21/2012 Abstract [facility] Social History Tobacco [...] on filedocumented in this encounter Care Teams Plc Programmer Relationship Specialty Start Date End Date Pb Su MD [address] [place], [place] [id number] PCP - General 04/26/16 Pb Su MD [address] [place] 8[address]999 PCP - General 05/19/15 04/25/16 Pb Su MD [address] [place] 583639 PCP - General 12/07/14 05/18/15 Pb Su MD [address] [place] 190889 PCP - General 12/05/14 12/06/14 Pb uS MD [address] [place] [address] PCP - General 03/23/14 12/04/14 Pb Su MD [address] [place] 473719 PCP - General 03/21/14 03/22/14 Pb Su MD [address] [place] 568049 PCP - General 03/16/14 03/20/14 Pb Su MD [address] [place] [address]0029 PCP - General 03/14/14 03/15/14 Pb Su MD [address] [place] 513139 PCP - General 03/09/14 03/13/14 Pb Su MD [address] [place] 451239 PCP - General 03/02/14 03/08/14 Pb Su MD [address] [place] 796939 PCP - General 02/28/14 03/01/14 Pb Su MD [address] [place] [address] PCP - General 02/25/14 02/27/14 Pb Su MD [address] [place] 65[address]59 PCP - General 02/23/14 02/24/14 Pb Su MD [address] [place] 07[address]19 PCP - General 02/17/14 02/22/14 Pb Su MD [address] [place] 824099 PCP - General 11/02/13 02/16/14 Pb Su MD [address] [place] 2[address]89 PCP - General 09/30/13 11/01/13 Pb Su MD [address] [place] 564809 PCP - General 06/10/13 09/29/13 Pb Su MD [address] [place] 28[address]59 PCP - General 04/05/13 06/09/13 Pb Su MD [address] [place] [address] PCP - General 09/24/12 04/04/13 Pb Su MD [address] [place] [address] PCP - General 06/11/12 09/23/12 documented as of this encounter
--- OUTSIDE RECORDS SUMMARY | 2024-11-14 10:19 | XMS_ITS | Encounter Summary ---
Author Organization [facility] Address [address] [place] [address]. [place], [place] [address] [place] [address] Care Team Providers Care Screed Operator Name Role Phone Pb Su MD [...] (Late st Contact Info) Description 06/10/[address] [facility] [place] [address] Pb Su MD [address] [place], [place] [id number] Social History Tobacco Use Types Packs/Day Years Used Date Smoking Tobacco: Never Assessed Sex and Gender Information Value Date Recorded Sex Assigned at Not on file Legal Sex Male 7:22 PM CDT Gender Identity Not on file Sexual Orientation Not on file documented as of this encounter Plan of Treatment Not on file documented as of this encounter Visit Diagnoses Diagnosis Other malaise and fatigue documented in this encounter Care Teams Screed Operator Relationship Specialty Start Date End Date Pb Su MD [address] [place], [place] 25[address]29 PCP - General 04/26/16 Pb Su MD [address] [place], [place] 13674269 PCP - General 05/19/15 04/25/16 Pb Su MD [address] [place], [place] 19876269 PCP - General 12/07/14 05/18/15 Pb Su MD [address] [place], [place] 404[address]69 PCP - General 12/05/14 12/06/14 Pb Su MD [address] [place] [address] PCP - General 03/23/14 12/04/14 Pb Su MD [address] [place] 386229 PCP - General 03/21/14 03/22/14 Pb Su MD [address] [place] [address] PCP - General 03/16/14 03/20/14 Pb Su MD [address] [place] [address] PCP - General 03/14/14 03/15/14 Pb Su MD [address] [place] [address] PCP - General 03/09/14 03/13/14 Pb Su MD [address] [place] 9[address]379 PCP - General 03/02/14 03/08/14 Pb Su MD [address] [place] 576499 PCP - General 02/28/14 03/01/14 Pb Su MD [address] [place] [address] PCP - General 02/25/14 02/27/14 Pb Su MD [address] [place] 337029 PCP - General 02/23/14 02/24/14 Pb Su MD [address] [place] 805039 PCP - General 02/17/14 02/22/14 Pb Su MD [address] [place] 450329 PCP - General 11/02/13 02/16/14 Pb Su MD [address] [place] 65[address]69 PCP - General 09/30/13 11/01/13 Pb Su MD [address] [place] 524969 PCP - General 06/10/13 09/29/13 documented as of this encounter
--- OUTSIDE RECORDS SUMMARY | 2024-11-14 10:19 | XMS_ITS | Encounter Summary ---
Author Organization [facility] Address [address] [place] [address]. [place], [place] [address] [place] [address] Care Team Providers Care Printed Circuit Board Panels Plater Name Role Phone Pb Su MD Primary [...] Provider Pb uS MD Primary Care Provider [phone] Pb Su MD Primary Care Provider [phone] Pb Su MD Primary Care Provider +[phone] Pb uS MD Primary Care Provider +[phone] Pb Su MD Primary Care Provider [phone] Pb Su MD Primary Care Provider [phone] Sussy Zavala MD Primary Care Provider [phone] Fernie Erickson MD Primary Care Provider Unav ailable Encounter Details Date Type Department Care Team (Late st Contact Info) Description 10/06/2010 Abstract [facility] [place] [address] Delilah Biggs MD Social History Tobacco Use Types Packs/Day [...] this encounter Visit Diagnoses Diagnosis Atrial fibrillation ([facility]) Atrial fibrillation documented in this encounter Care Teams Printed Circuit Board Panels Plater Relationship Specialty Start Date End Date Pb Su MD [address] [place], [place] 98[address]49 PCP - General 04/26/16 Pb Su MD [address] [place] [address] PCP - General 05/19/15 04/25/16 Pb Su MD [address] [place] [address] PCP - General 12/07/14 05/18/15 Pb Su MD [address] [place] 777089 PCP - General 12/05/14 12/06/14 Pb Su MD [address] [place], [place] 30011269 PCP - General 03/23/14 12/04/14 Pb Su MD [address] [place] 551839 PCP - General 03/21/14 03/22/14 Pb Su MD [address] [place] 12322269 PCP - General 03/16/14 03/20/14 Pb Su MD [address] [place] 6[address]49 PCP - General 03/14/14 03/15/14 Pb Su MD [address] [place] 297369 PCP - General 03/09/14 03/13/14 Pb Su MD [address] [place] [address] PCP - General 03/02/14 03/08/14 Pb Su MD [address] [place] [address]269 PCP - General 02/28/14 03/01/14 Pb Su MD [address] [place] 5[address]39 PCP - General 02/25/14 02/27/14 Pb Su MD [address] [place] 7[address]759 PCP - General 02/23/14 02/24/14 Pb Su MD [address] [place] 529369 PCP - General 02/17/14 02/22/14 Pb Su MD [address] [place] 145329 PCP - General 11/02/13 02/16/14 Pb Su MD [address] [place] 424489 PCP - General 09/30/13 11/01/13 Pb Su MD [address] [place] [address] PCP - General 06/10/13 09/29/13 Pb Su MD [address] [place] [address] PCP - General 04/05/13 06/09/13 Pb Su MD [address] [place] [address] PCP - General 09/24/12 04/04/13 Pb Su MD [address] [place] 20[address]99 PCP - General 06/11/12 09/23/12 Pb Su MD [address] [place] 303629 PCP - General 01/02/12 06/10/12 Pb Su MD [address] [place] 6[address]329 PCP - General 10/03/11 01/01/12 Sussy Zavala MD [facility] [address] [place] [address] PCP - General 08/05/11 10/02/11 Fernie Erickson MD [address] [facility] [address] [place] [address] PCP - General 10/06/10 08/04/11 documented as of this encounter
--- OUTSIDE RECORDS SUMMARY | 2024-11-14 10:19 | XMS_ITS | Encounter Summary ---
Author Organization [facility] Address [address] [place] [address]. [place], [place] [address] [place] [address] Care Team Providers Care Elementary Math Tutor Name Role Phone Pb Su MD Primary Care Provider [phone] Pb Su MD Primary Care Provider Pb [...] Pb Su MD Primary Care Provider +[phone] Pb Su MD Primary Care Provider +[phone] Pb Su MD Primary Care Provider [phone] Pb Su MD Primary Care Provider [phone] Pb Su MD Primary Care Provider [phone] Pb Su MD Primary Care Provider [phone] Encounter Details Date Type Department Care Team (Late st Contact Info) Description 11/11/[address] [facility] [place], [place] [id number] Pb Su MD [address] [place], [place] 58085[address] Social History Tobacco Use Types Packs/Day Years Used Date Smoking Tobacco: Never Assessed Sex and Gender Information Value Date Recorded Sex Assigned at Not on file Legal Sex Male 7:22 PM CDT Gender Identity Not on file Sexual Orientation Not on file documented as of this encounter Plan of Treatment Not on file documented as of this encounter Visit Diagnoses Diagnosis Atrial fibrillation ([facility]) Atrial fibrillation documented in this encounter Care Teams Elementary Math Tutor Relationship Specialty Start Date End Date Pb Su MD [address] [place] [address]59 PCP - General 04/26/16 Pb Su MD [address] [place], [place] 996699 PCP - General 05/19/15 04/25/16 Pb Su MD [address] [place] [address] PCP - General 12/07/14 05/18/15 Pb Su MD [address] [place] 197639 PCP - General 12/05/14 12/06/14 Pb Su MD [address] [place] 960989 PCP - General 03/23/14 12/04/14 Pb Su MD [address] [place] 269919 PCP - General 03/21/14 03/22/14 Pb Su MD [address] [place] 424209 PCP - General 03/16/14 03/20/14 Pb Su MD [address] [place] 07[address]39 PCP - General 03/14/14 03/15/14 Pb Su MD [address] [place] 7[address]99 PCP - General 03/09/14 03/13/14 Pb Su MD [address] [place] [address] PCP - General 03/02/14 03/08/14 Pb Su MD [address] [place] 268359 PCP - General 02/28/14 03/01/14 Pb Su MD [address] [place] 025149 PCP - General 02/25/14 02/27/14 Pb Su MD [address] [place] 568089 PCP - General 02/23/14 02/24/14 Pb Su MD [address] [place], [place] 73294269 PCP - General 02/17/14 02/22/14 Pb Su MD [address] [place] 250899 PCP - General 11/02/13 02/16/14 Pb Su MD [address] [place] 7[address]79 PCP - General 09/30/13 11/01/13 Pb Su MD [address] [place] [address] PCP - General 06/10/13 09/29/13 Pb Su MD [address] [place] [address] PCP - General 04/05/13 06/09/13 Pb Su MD [address] [place] 245089 PCP - General 09/24/12 04/04/13 Pb Su MD [address] [place] [address]679 PCP - General 06/11/12 09/23/12 Pb Su MD [address] [place] 14[address] PCP - General 01/02/12 06/10/12 Pb Su MD [address] [place], [place] 215319 PCP - General 10/03/11 01/01/12 documented as of this encounter
--- OUTSIDE RECORDS SUMMARY | 2024-11-14 10:19 | XMS_ITS | Encounter Summary ---
Author Organization [facility] Address [address] [place] [address]. [place], [place] [address] [place] [address] Care Team Providers Care Mechanical Engineering Coop Name Role Phone Pb Su MD Primary [...] Care Team (Late st Contact Info) Description 10/03/[address] [facility] [address] [place] [address] Marquise Salinas MD Social History Tobacco Use [...] (pediatric) documented in this encounter Care Teams Mechanical Engineering Coop Relationship Specialty Start Date End Date Pb Su MD [address] [place], [place] [id number] PCP - General 04/26/16 Pb Su MD [address] [place], [place] 37550269 PCP - General 05/19/15 04/25/16 Pb Su MD [address] [place], [place] 581922[address] PCP - General 12/07/14 05/18/15 Pb Su MD [address] [place] [address] PCP - General 12/05/14 12/06/14 Pb Su MD [address] [place], [place] 6988[address] PCP - General 03/23/14 12/04/14 Pb Su MD [address] [place] [address] PCP - General 03/21/14 03/22/14 Pb Su MD [address] [place] 148639 PCP - General 03/16/14 03/20/14 Pb Su MD [address] [place] [address] PCP - General 03/14/14 03/15/14 Pb Su MD [address] [place], [place] 2[address]29 PCP - General 03/09/14 03/13/14 Pb Su MD [address] [place] 145329 PCP - General 03/02/14 03/08/14 Pb Su MD [address] [place] [address] PCP - General 02/28/14 03/01/14 Pb Su MD [address] [place] [address] PCP - General 02/25/14 02/27/14 Pb Su MD [address] [place] [address] PCP - General 02/23/14 02/24/14 Pb Su MD [address] [place] [address] PCP - General 02/17/14 02/22/14 Pb Su MD [address] [place] [address] PCP - General 11/02/13 02/16/14 Pb Su MD [address] [place] [address] PCP - General 09/30/13 11/01/13 Pb Su MD [address] [place] 16[address]79 PCP - General 06/10/13 09/29/13 Pb Su MD [address] [place], [place] 409289 PCP - General 04/05/13 06/09/13 Pb Su MD [address] [place] 707019 PCP - General 09/24/12 04/04/13 Pb Su MD [address] [place] 7[address]389 PCP - General 06/11/12 09/23/12 Pb Su MD [address] [place] 8[address]99 PCP - General 01/02/12 06/10/12 Pb Su MD [address] [place] 394009 PCP - General 10/03/11 01/01/12 documented as of this encounter
--- OUTSIDE RECORDS SUMMARY | 2024-11-14 10:19 | XMS_ITS | Encounter Summary ---
Author Organization [facility] Address [address] [place] [address]. [place], [place] [address] [place] [address] Care Team Providers Care Public Transit Trolley Driver Name Role Phone Pb Su MD [...] Su MD Primary Care Provider [phone] Pb Su MD Primary Care Provider [phone] Encounter Details Date Type Department Care Team (Latest Contact Info) Description 04/05/2013 Abstract [facility] Vahe Chatterjee MD Social History Tobacco Use Types Packs/Day Years Used Date Smoking Tobacco: Never Assessed Sex and Gender Information Value Date Recorded Sex Assigned at Not on file Legal Sex Male 7:22 PM CDT Gender Identity Not on file Sexual Orientation Not on file documented as of this encounter Progress Notes * Pb Su MD - 04/05/2013 4:16 PM CDT [place] [address] Patient: AVA CEDILLO [facility] Rec#: [id number] Birthdate: 1965 Admit/Svce Date: Disch Date: CHART DOCUMENT Problems: Sleep apnea syndrome. Subjective: The patient states that he is using the CPAP more frequently. He snores without the CPAP and frequently his has asks him to use the CPAP. He has no significant problems with mask fit. He claims to use the CPAP more frequently than he did in the past, but admits that some nights he does not use it. He lost the chip from the CPAP, hence download is not available. Objective: He is alert. His facial examination is unremarkable. His exam is unchanged. His [place] Sleepiness Score is 3. Assessment: Clinically, he is doing well. Plan: I have encouraged him to continue using nasal CPAP every night. Complications of untreated sleep apnea have been discussed with him again. I am hoping he is using the CPAP at least 6 hours per night. We will reevaluate him again in the future as needed. He was advised to contact us if he has any problems with the CPAP equipment or if he feels that his sleep apnea is not under good control. Electronically Signed By: IRWIN DAWKINS M.D. 04/07/2013 20:26 IRWIN DAWKINS M.D. P #[id number] P/ma cc: Hali TOLENTINO M.D. A BUTTER FILTER OPERATOR documented in this encounter Plan of Treatment Not on file documented as of this encounter Visit Diagnoses Not on filedocumented in this encounter Care Teams Public Transit Trolley Driver Relationship Specialty Start Date End Date Pb Su MD [address] [place], [place] 6[address]609 PCP - General 04/26/16 Pb Su MD [address] [place] 88[address] PCP - General 05/19/15 04/25/16 Pb Su MD [address] [place] [address] PCP - General 12/07/14 05/18/15 Pb Su MD [address] [place] 318[address]269 PCP - General 12/05/14 12/06/14 Pb Su MD [address] [place] [address] PCP - General 03/23/14 12/04/14 Pb Su MD [address] [place], [place] [address] PCP - General 03/21/14 03/22/14 Pb Su MD [address] [place] [address] PCP - General 03/16/14 03/20/14 Pb Su MD [address] [place] [address] PCP - General 03/14/14 03/15/14 Pb Su MD [address] [place], [place] 40[address]99 PCP - General 03/09/14 03/13/14 Pb Su MD [address] [place] 56[address]89 PCP - General 03/02/14 03/08/14 Pb Su MD [address] [place], [place] [address]329 PCP - General 02/28/14 03/01/14 Pb Su MD [address] [place] 6[address]349 PCP - General 02/25/14 02/27/14 Pb Su MD [address] [place], [place] 56[address]79 PCP - General 02/23/14 02/24/14 Pb Su MD [address] [place] [address]399 PCP - General 02/17/14 02/22/14 Pb Su MD [address] [place] [address] PCP - General 11/02/13 02/16/14 Pb Su MD [address] [place] 78[address]99 PCP - General 09/30/13 11/01/13 Pb Su MD [address] [place], [place] 393849 PCP - General 06/10/13 09/29/13 Pb Su MD [address] [place] [address] PCP - General 04/05/13 06/09/13 documented as of this encounter
--- OUTSIDE RECORDS SUMMARY | 2024-11-14 10:19 | XMS_ITS | Encounter Summary ---
Author Organization [facility] Address [address] [place] [address]. [place], [place] [address] [place] [address] Care Team Providers Care Production Miner Name Role Phone Pb Su MD Primary [...] Pb Su MD Primary Care Provider [phone] Pb Su MD Primary Care Provider [phone] Pb Su MD Primary Care Provider [phone] Pb Su MD Primary Care Provider [phone] Pb Su MD Primary Care Provider [phone] Pb Su MD Primary Care Provider [phone] Sussy Zavala MD Primary Care Provider [phone] Fernie Erickson MD Primary Care Provider Unav ailable Encounter Details Date Type Department Care Team (Late st Contact Info) Description 08/20/2010 Abstract [place] [address] [facility] [address] [facility] [address] [place], [place] [id number] Pb Su MD [address] [place], [place] [address] Social History Tobacco Use Types Packs/Day Years [...] on filedocumented in this encounter Care Teams Production Miner Relationship Specialty Start Date End Date Pb Su MD [address] [place], [place] [address] PCP - General 04/26/16 Pb Su MD [address] [place], [place] [address] PCP - General 05/19/15 04/25/16 Pb Su MD [address] [place] [address] PCP - General 12/07/14 05/18/15 Pb Su MD [address] [place] [address] PCP - General 12/05/14 12/06/14 Pb Su MD [address] [place] [address] PCP - General 03/23/14 12/04/14 Pb Su MD [address] [place] [address] PCP - General 03/21/14 03/22/14 Pb Su MD [address] [place], [place] [address] PCP - General 03/16/14 03/20/14 Pb uS MD [address] [place] [address] PCP - General 03/14/14 03/15/14 Pb Su MD [address] [place], [place] [address] PCP - General 03/09/14 03/13/14 Pb Su MD [address] [place] [address] PCP - General 03/02/14 03/08/14 Pb Su MD [address] [place] [address] PCP - General 02/28/14 03/01/14 Pb Su MD [address] [place] [address] PCP - General 02/25/14 02/27/14 Pb Su MD [address] [place] [address] PCP - General 02/23/14 02/24/14 Pb Su MD [address] [place] [address] PCP - General 02/17/14 02/22/14 Pb Su MD [address] [place] [address] PCP - General 11/02/13 02/16/14 Pb Su MD [address] [place] [address] PCP - General 09/30/13 11/01/13 Pb Su MD [address] [place] [address] PCP - General 06/10/13 09/29/13 Pb Su MD [address] [place] [address] PCP - General 04/05/13 06/09/13 Pb Su MD [address] [place] [address] PCP - General 09/24/12 04/04/13 Pb Su MD [address] [place] [address] PCP - General 06/11/12 09/23/12 Pb Su MD [address] [place] [address] PCP - General 01/02/12 06/10/12 Pb Su MD [address] [place], [place] [address]509 PCP - General 10/03/11 01/01/12 Sussy Zavala MD [facility] [address] [place] [address] PCP - General 08/05/11 10/02/11 Fernie Erickson MD [facility]. [facility] [address] [place] [address] PCP - General 10/06/10 08/04/11 documented as of this encounter
--- OUTSIDE RECORDS SUMMARY | 2024-11-14 10:19 | XMS_ITS | Encounter Summary ---
Author Organization [facility] Address [address] [place] [address]. [place], [place] [address] [place] [address] Care Team Providers Care Supervisor Carding Name Role Phone Pb Su MD Primary [...] Pb Su MD Primary Care Provider [phone] Pb Su MD Primary Care Provider [phone] Pb Su MD Primary Care Provider [phone] Encounter Details Date Type Department Care Team (Late st Contact Info) Description 01/04/2013 Abstract [facility] Medical [facility] Multispecialty Care - [facility] [address] [facility] [place] [address] Seun Mak DO [address] [place] [address] Social History Tobacco Use Types Packs/Day Years Used Date Smoking Tobacco: Never Assessed Sex and Gender Information Value Date Recorded Sex Assigned at Not on file Legal Sex Male 7:22 PM CDT Gender Identity Not on file Sexual Orientation Not on file documented as of this encounter Last Filed Vital Signs Vital Sign Reading Time Taken Comments Blood Pressure 120/80 01/04/2013 3:38 PM [employer] MEDIA SPECIALIST Pulse - - Temperature - - Respiratory Rate - - Oxygen Saturation - - Inhaled Oxygen Concentration - - Weight 97.5 kg (215 lb) 01/04/2013 3:38 PM S[employer]OL [employer] MEDIA SPECIALIST Height 182.9 cm (6') 01/04/2013 3:38 PM SCHOOL [employer] MEDIA SPECIALIST Body Mass Index 29.16 01/04/2013 3:38 PM 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 Su Chief Complaint right knee pain History of Present Illness The patient is here today for followup of his right knee pain. He states that the pain is tolerable. There is still a dull, aching quality of pain that is worse when running on the treadmill. The elliptical and activity modifications improve his symptoms. When present, his pain is rated as a 6 on a10 point pain severity scale. He has swelling in the prepatellar bursal region. However, he has notbeen experiencing any intra-articular joint effusion, giving way, or locking. There is no numbness,tingling, or radicular complaint. The injection was beneficial at the last visit. Examination: General: The patient appears be healthy [...] lower extremities. Skin: Intact to the extremities. No lacerations or abrasions are noted. There is no evidence for skin infection. Musculoskeletal: The right knee demonstrates crepitus along the medial joint line. There is no click with Jc's. The lateral and patellofemoral regions are nontender. He has full flexion and extension of the knee. Jc's and David's are normal. There is a good endpoint with anterior and posterior drawers. He has good stability with testing of the collateral ligaments. The quadriceps and patellar tendons are intact. He has some swelling in the prepatellar region with chronic features.There are no radicular symptoms. Impression: Chondromalacia patella right knee with fissure. Recommendation: The patient will continue with the home exercises and activity modifications. He may continue with his current medications. He has not been requiring the Relafen. He may apply ice after activities. He may gradually start to increase his activities such as light jogging. He will avoid inclines or other high impact activities. Followup will be in 4 weeks. If he is doing well, then we will continue to increase his activities at that time. All questions were answered. Active Problems 1. [...] Oral Tablet; TAKE 2 TABLETS DAILY; Therapy: [id number] to (Evaluate:28Jan2013) Requested for: 04Dec2012; Last Rx:[id number] Allergies 1. Acetaminophen-Codeine #3 TABS Vitals [id number] 03:38PM Systolic 120 Diastolic 80 BMI Calculated 29.12 BSA Calculated 2.2 Height 6 ft Weight 215 lb Signatures Electronically signed by : Seun Mak D.O.; Jan 04 2013 6:05PM (Author) [employer] MEDIA SPECIALIST documented in this encounter Plan of Treatment Not on file documented as of this encounter Visit Diagnoses Not on filedocumented in this encounter Care Teams Supervisor Carding Relationship Specialty Start Date End Date Pb Su MD [address] [place], [place] [address] PCP - General 04/26/16 Pb Su MD [address] [place], [place] [address] PCP - General 05/19/15 04/25/16 Pb Su MD [address] [place], [place] [address] PCP - General 12/07/14 05/18/15 Pb Su MD [address] [place], [place] [address] PCP - General 12/05/14 12/06/14 bP Su MD [address] [place], [place] [address] PCP - General 03/23/14 12/04/14 Pb Su MD [address] [place] [address] PCP - General 03/21/14 03/22/14 Pb Su MD [address] [place] [address] PCP - General 03/16/14 03/20/14 Pb Su MD [address] [place] [address] PCP - General 03/14/14 03/15/14 Pb Su MD [address] [place], [place] [address] PCP - General 03/09/14 03/13/14 Pb Su MD [address] [place] [address] PCP - General 03/02/14 03/08/14 Pb Su MD [address] [place], [place] [address] PCP - General 02/28/14 03/01/14 Pb Su MD [address] [place] [address]279 PCP - General 02/25/14 02/27/14 Pb Su MD [address] [place], [place] [address] PCP - General 02/23/14 02/24/14 Pb Su MD [address] [place], [place] [address] PCP - General 02/17/14 02/22/14 Pb Su MD [address] [place], [place] [address] PCP - General 11/02/13 02/16/14 Pb Su MD [address] [place], [place] [address] PCP - General 09/30/13 11/01/13 Pb Su MD [address] [place], [place] [address] PCP - General 06/10/13 09/29/13 Pb Su MD [address] [place] [address] PCP - General 04/05/13 06/09/13 Pb Su MD [address] [place], [place] [address] PCP - General 09/24/12 04/04/13 documented as of this encounter
--- OUTSIDE RECORDS SUMMARY | 2024-11-14 10:19 | XMS_ITS | Encounter Summary ---
Author Organization [facility] Address [address] [place] [address]. [place], [place] [address] [place] [address] Care Team Providers Care Latent Print Examiner Name Role Phone Pb Su MD Primary [...] Pb Su MD Primary Care Provider [phone] Pb Su MD Primary Care Provider [phone] Pb Su MD Primary Care Provider +[phone]- [phone] Pb Su MD Primary Care Provider [phone]- [phone] Encounter Details Date Type Department Care Team (Late st Contact Info) Description 08/18/2012 Abstract [facility] Medical [facility] Family Medicine - [facility] [address] [place] [address] Pb Su MD [address] [place] [address] Social History Tobacco Use Types Packs/Day Years Used Date Smoking Tobacco: Never Assessed Sex and Gender Information Value Date Recorded Sex Assigned at Not on file Legal Sex Male 7:22 PM CDT Gender Identity Not on file Sexual Orientation Not on file documented as of this encounter Last Filed Vital Signs Vital Sign Reading Time Taken Comments Blood Pressure 122/64 08/18/2012 6:36 AM CDT Pulse 78 08/18/2012 6:36 AM CDT Temperature - - Respiratory Rate - - Oxygen Saturation - - Inhaled Oxygen Concentration - - Weight 97.5 kg (215 lb) 08/18/2012 6:36 AM CDT Height 182.9 cm (6') 08/18/2012 6:36 AM CDT Body Mass Index 29.16 08/18/2012 6:36 AM CDT documented in this encounter Progress Notes * Pb Su MD - 08/18/2012 6:45 AM CDT Chief Complaint 1. Knee Pain Chief Complaint: The patient is here today to follow up on labs and to discuss knee pain. He has been doing physical therapy, but it is still not better. He would like to have an MRI done. History of Present Illness HPI: 47 yo male with multiple somatic complaints and concerms! Knee Pain (Acute): The patient is being seen for follow-up of knee pain. Symptoms: knee pain, knee swelling, knee stiffness, knee clicking and chronic persistent pain/stiffness: attending PT, but no knee locking and no knee instability. Symptom Cluster Details: he reportsthe symptoms are worsening. Associated symptoms: no pain in other joints. Current Treatment: Current treatment includes ice, activity modification and physical therapy. By report, there is good adherence with treatment and poor symptom control. Pertinent History: Pertinent medical history: previous knee injury. The patient is currently able to do activities of daily living without limitations and able to participate in sports with limitations. Evaluation and Treatment History: He was previously evaluated in this clinic. Previous presentationincluded knee pain, knee swelling and knee stiffness. Past evaluation has included knee x-rays and PT. Past treatment has included physical therapy. Hyperlipidemia (Follow-Up): The patient states his hyperlipidemia has been stable since the last visit. Comorbid Illnesses: failed Lifestyle Modification. He has no significant interval events. Symptoms: Denies chest pain, denies intermittent leg claudication, denies muscle pain and denies muscle weakness. Associated symptoms include no focal neurologic deficits and no memory loss. Lifestyle: Diet: He consumes a diverse and healthy diet.Weight Issues: He has weight concerns.Exercise: He exercises regularly.Smoking: He does not use tobacco.Alcohol: He denies alcohol use.Drug Use: He denies drug use. The patient's LDL goal is <120mg/dl mg/dL. The patient is due for a lipid panel and liver function tests. Review of Systems Focused-Male: Constitutional: Normal. ENT: normal. Cardiovascular: Normal. Respiratory: Normal. Gastrointestinal: Normal. Genitourinary: Normal. Integumentary: Normal. Musculoskeletal: arthralgias, joint pain and joint stiffness. Neurological: Normal. Active Problems 1. Hyperlipidemia 272.4 2. Joint Pain, Localized In The Knee 719.46 3. Lower Back Pain 724.2 4. Premature Ventricular Contractions 427.69 Current Meds 1. Claritin 10 MG Oral Tablet; TAKE 1 TABLET DAILY; Therapy: (Recorded:18Aug2012) to Allergies 1. Acetaminophen-Codeine #3 TABS Vitals Signs [Data Includes: Current Encounter] 18Aug2012 06:36AM Temperature: 97.6 F, Oral Heart Rate: 78 Pulse Quality: Normal Respiration: 10 Respiration Quality: Normal Systolic: 122, Sitting Diastolic: 64, Sitting BMI Calculated: 29.12 BSA Calculated: 2.2 Height: 6 ft Weight: 215 lb Physical Exam Right Knee: Appearance: an effusion and swelling, but no deformity, no dislocation, no erythema, nogenu valgum and no genu varum. Tenderness: None except the diffuse anterior knee, pes anserine bursa, prepatellar bursa and undersurface of the patella. Palpatory findings include crepitus. ROM: Full. Motor: Normal. Special Tests: positive patellar grind and equivocal Pivot Shift test, but negativepatellofemoral apprehension test, negative medial Jc test, negative Anterior Drawer sign, negative David's test, negative Posterior Drawer sign, no laxity on valgus stress and no laxity on varus stress. Patellofemoral Joint: Meniscal: Constitutional General appearance: No acute distress, well appearing and well nourished. Pulmonary Respiratory effort: No increased work of breathing or signs of respiratory distress. Auscultation of lungs: Clear to auscultation. Cardiovascular Auscultation of heart: Normal rate and rhythm, normal S1 and S2, without murmurs. Abdomen Abdomen: Non-tender, no masses. Liver and spleen: No hepatomegaly or splenomegaly. Lymphatic Palpation of lymph nodes in neck: No lymphadenopathy. Musculoskeletal Gait and station: Normal. Digits and nails: Normal without clubbing or cyanosis. Skin Skin and subcutaneous tissue: Normal without rashes or lesions. Neurologic Cranial nerves: Cranial nerves 2-12 intact. Psychiatric Orientation to person, place and time: Normal. Mood and affect: Normal. Results/Data Chol 245mg/dl TGL 221 mg/dl HDL 43 LDL FBS 90mg/dl Cr 0.6 Assessment 1. Hyperlipidemia 272.4 2. Joint Pain, Localized In The Knee 719.46 3. Health Maintenance V70.0 Plan 1. Atorvastatin Calcium 20 MG Oral Tablet; TAKE 1 TABLET DAILY DIRECTED; Therapy: [id number] to (Evaluate:14Feb2013); Last Rx:[id number] Signatures Electronically signed by : Pb Su M.D.; Aug 20 2012 8:29PM (Author) GE INSPECTOR documented in this encounter Plan of Treatment Not on file documented as of this encounter Visit Diagnoses Not on filedocumented in this encounter Care Teams Latent Print Examiner Relationship Specialty Start Date End Date Pb Su MD [address] [place] [address] PCP - General 04/26/16 Pb Su MD [address] [place] [address]809 PCP - General 05/19/15 04/25/16 Pb Su MD [address] [place], [place] [address] PCP - General 12/07/14 05/18/15 Pb Su MD [address] [place] [address] PCP - General 12/05/14 12/06/14 Pb Su MD [address] [place], [place] [address] PCP - General 03/23/14 12/04/14 Pb Su MD [address] [place], [place] [address] PCP - General 03/21/14 03/22/14 Pb Su MD [address] [place] [address] PCP - General 03/16/14 03/20/14 Pb Su MD [address] [place], [place] [address]159 PCP - General 03/14/14 03/15/14 Pb Su MD [address] [place], [place] [address] PCP - General 03/09/14 03/13/14 Pb Su MD [address] [place] [address] PCP - General 03/02/14 03/08/14 Pb Su MD [address] [place] [address] PCP - General 02/28/14 03/01/14 Pb Su MD [address] [place], [place] [address]229 PCP - General 02/25/14 02/27/14 Pb Su MD [address] [place] [address] PCP - General 02/23/14 02/24/14 Pb Su MD [address] [place] [address] PCP - General 02/17/14 02/22/14 Pb Su MD [address] [place] [address] PCP - General 11/02/13 02/16/14 Pb Su MD [address] [place] [address] PCP - General 09/30/13 11/01/13 Pb Su MD [address] [place] [address] PCP - General 06/10/13 09/29/13 Pb Su MD [address] [place], [place] [address]239 PCP - General 04/05/13 06/09/13 Pb Su MD [address] [place], [place] [address] PCP - General 09/24/12 04/04/13 Pb Su MD [address] [place], [place] [address] PCP - General 06/11/12 09/23/12 documented as of this encounter
--- OUTSIDE RECORDS SUMMARY | 2024-11-14 10:19 | XMS_ITS | Encounter Summary ---
Author Organization [facility] Address [address] [place] [address]. [place], [place] [address] [place] [address] Care Team Providers Care Outside Machinist Name Role Phone Pb Su MD Primary [...] Pb Su MD Primary Care Provider [phone] Pb Su MD Primary Care Provider [phone] Pb Su MD Primary Care Provider [phone] Pb Su MD Primary Care Provider [phone] Pb Su MD Primary Care Provider [phone] Sussy Zavala MD Primary Care Provider [phone] Encounter Details Date Type Department Care Team (Late st Contact Info) Description 08/22/[address] [facility] [address] [place] [address] Marquise Salinas MD Social History Tobacco Use [...] (pediatric) documented in this encounter Care Teams Outside Machinist Relationship Specialty Start Date End Date Pb Su MD [address] [place], [place] [address] PCP - General 04/26/16 Pb Su MD [address] [place], [place] [address] PCP - General 05/19/15 04/25/16 Pb Su MD [address] [place], [place] [address] PCP - General 12/07/14 05/18/15 Pb Su MD [address] [place] [address] PCP - General 12/05/14 12/06/14 Pb Su MD [address] [place] [address] PCP - General 03/23/14 12/04/14 Pb Su MD [address] [place], [place] [address] PCP - General 03/21/14 03/22/14 Pb Su MD [address] [place], [place] [address] PCP - General 03/16/14 03/20/14 Pb Su MD [address] [place] [address] PCP - General 03/14/14 03/15/14 Pb Su MD [address] [place], [place] [address] PCP - General 03/09/14 03/13/14 Pb Su MD [address] [place], [place] [address] PCP - General 03/02/14 03/08/14 Pb Su MD [address] [place] [address] PCP - General 02/28/14 03/01/14 Pb uS MD [address] [place] [address] PCP - General 02/25/14 02/27/14 Pb Su MD [address] [place], [place] [address] PCP - General 02/23/14 02/24/14 Pb Su MD [address] [place], [place] [address] PCP - General 02/17/14 02/22/14 Pb Su MD [address] [place] [address] PCP - General 11/02/13 02/16/14 Pb Su MD [address] [place], [place] [address] PCP - General 09/30/13 11/01/13 Pb Su MD [address] [place], [place] [address] PCP - General 06/10/13 09/29/13 Pb Su MD [address] [place] [address] PCP - General 04/05/13 06/09/13 Pb Su MD [address] [place] [address] PCP - General 09/24/12 04/04/13 Pb Su MD [address] [place], [place] [address] PCP - General 06/11/12 09/23/12 Pb Su MD [address] [place], [place] [address] PCP - General 01/02/12 06/10/12 Pb Su MD [address] [place], [place] [address] PCP - General 10/03/11 01/01/12 Sussy Zavala MD [facility]. [facility] [address] [place], [place] [address]999 PCP - General 08/05/11 10/02/11 documented as of this encounter
--- OUTSIDE RECORDS SUMMARY | 2024-11-14 10:19 | XMS_ITS | Encounter Summary ---
Author Organization [facility] Address [address] [place] [address]. [place], [place] [address] [place] [address] Care Team Providers Care Assistant Professor Of Biochemistry Name Role Phone Pb Su MD Primary [...] Pb Su MD Primary Care Provider [phone] Pb Su MD Primary Care Provider [phone] Encounter Details Date Type Department Care Team (Latest Contact Info) Description 02/24/2013 Abstract [facility] Pb Su MD [address] [place], [place] [address] Social History Tobacco Use Types Packs/Day Years [...] on filedocumented in this encounter Care Teams Assistant Professor Of Biochemistry Relationship Specialty Start Date End Date Pb Su MD [address] [place], [place] [address] PCP - General 04/26/16 Pb Su MD [address] [place], [place] [address] PCP - General 05/19/15 04/25/16 Pb Su MD [address] [place], [place] [address] PCP - General 12/07/14 05/18/15 Pb Su MD [address] [place], [place] [address] PCP - General 12/05/14 12/06/14 Pb Su MD [address] [place] [address] PCP - General 03/23/14 12/04/14 Pb Su MD [address] [place] [address] PCP - General 03/21/14 03/22/14 Pb Su MD [address] [place] [address]199 PCP - General 03/16/14 03/20/14 Pb Su MD [address] [place] [address] PCP - General 03/14/14 03/15/14 Pb Su MD [address] [place], [place] [address]889 PCP - General 03/09/14 03/13/14 Pb Su MD [address] [place], [place] [address] PCP - General 03/02/14 03/08/14 Pb Su MD [address] [place], [place] [address] PCP - General 02/28/14 03/01/14 Pb Su MD [address] [place] [address] PCP - General 02/25/14 02/27/14 Pb Su MD [address] [place] [address] PCP - General 02/23/14 02/24/14 Pb Su MD [address] [place] [address] PCP - General 02/17/14 02/22/14 Pb Su MD [address] [place], [place] [address] PCP - General 11/02/13 02/16/14 Pb Su MD [address] [place] [address] PCP - General 09/30/13 11/01/13 Pb Su MD [address] [place], [place] [address] PCP - General 06/10/13 09/29/13 Pb Su MD [address] [place], [place] [address] PCP - General 04/05/13 06/09/13 Pb Su MD [address] [place] [address] PCP - General 09/24/12 04/04/13 documented as of this encounter
--- OUTSIDE RECORDS SUMMARY | 2024-11-14 10:19 | XMS_ITS | Encounter Summary ---
Author Organization [facility] Address [address] [place] [address]. [place], [place] [address] [place] [address] Care Team Providers Care County Engineer Name Role Phone Pb Su MD [...] Pb Su MD Primary Care Provider [phone] Pb Su MD Primary Care Provider +[phone] Pb Su MD Primary Care Provider +[phone] Pb Su MD Primary Care Provider [phone] Pb Su MD Primary Care Provider +[phone] Sussy Zavala MD Primary Care Provider [phone] Fernie Erickson MD Primary Care Provider Unav ailable Encounter Details Date Type Department Care Team (Latest Contact Info) Description 11/01/2010 Abstract [facility] Medical Group Social [...] on filedocumented in this encounter Care Teams County Engineer Relationship Specialty Start Date End Date Pb Su MD [address] [place], [place] [id number] PCP - General 04/26/16 Pb Su MD [address] [place], [place] [id number] PCP - General 05/19/15 04/25/16 Pb Su MD [address] [place], [place] [id number] PCP - General 12/07/14 05/18/15 Pb Su MD [address] [place] [address] PCP - General 12/05/14 12/06/14 Pb Su MD [address] [place], [place] [address]69 PCP - General 03/23/14 12/04/14 Pb Su MD [address] [place] [address]109 PCP - General 03/21/14 03/22/14 Pb Su MD [address] [place] [address]449 PCP - General 03/16/14 03/20/14 Pb Su MD [address] [place] 3[address]79 PCP - General 03/14/14 03/15/14 Pb Su MD [address] [place] 24[address]89 PCP - General 03/09/14 03/13/14 Pb Su MD [address] [place] 222959 PCP - General 03/02/14 03/08/14 Pb Su MD [address] [place] [address] PCP - General 02/28/14 03/01/14 Pb Su MD [address] [place] [address] PCP - General 02/25/14 02/27/14 Pb Su MD [address] [place] 182249 PCP - General 02/23/14 02/24/14 Pb Su MD [address] [place], [place] 48[address] PCP - General 02/17/14 02/22/14 Pb Su MD [address] [place] [address] PCP - General 11/02/13 02/16/14 Pb Su MD [address] [place] 510489 PCP - General 09/30/13 11/01/13 Pb Su MD [address] [place] 6[address] PCP - General 06/10/13 09/29/13 Pb Su MD [address] [place] [address] PCP - General 04/05/13 06/09/13 Pb Su MD [address] [place] [address] PCP - General 09/24/12 04/04/13 Pb Su MD [address] [place] [address] PCP - General 06/11/12 09/23/12 Pb Su MD [address] [place] [address] PCP - General 01/02/12 06/10/12 Pb Su MD [address] [place] [address] PCP - General 10/03/11 01/01/12 Sussy Zavala MD [address] [facility] [address] [place] [address] PCP - General 08/05/11 10/02/11 Fernie Erickson MD [address] [facility] [address] [place] [address] PCP - General 10/06/10 08/04/11 documented as of this encounter
--- OUTSIDE RECORDS SUMMARY | 2024-11-14 10:19 | XMS_ITS | Encounter Summary ---
Author Organization [facility] Address [address] [place] [address]. [place], [place] [phone] [place] [address] Care Team Providers Care Second Operator Name Role Phone Pb Su MD Primary Care Provider [phone] Pb Su MD Primary Care Provider bP [...] Pb Su MD Primary Care Provider [phone] Pb Su MD Primary Care Provider [phone] Pb Su MD Primary Care Provider [phone] Pb Su MD Primary Care Provider [phone] Pb Su MD Primary Care Provider [phone] Pb Su MD Primary Care Provider [phone] Sussy Zavala MD Primary Care Provider [phone] Fernie Erickson MD Primary Care Provider Unav ailable Encounter Details Date Type Department Care Team (Late st Contact Info) Description 05/31/2011 Abstract [facility] Physical Therapy [address] [place] [address] Pb Su MD [address] [place], [place] 84[address]39 Social History Tobacco Use Types Packs/Day Years [...] therapy documented in this encounter Care Teams Second Operator Relationship Specialty Start Date End Date Pb Su MD [address] [place], [place] 306709 PCP - General 04/26/16 Pb Su MD [address] [place] 7[address]99 PCP - General 05/19/15 04/25/16 Pb Su MD [address] [place] [address] PCP - General 12/07/14 05/18/15 Pb Su MD [address] [place] [address] PCP - General 12/05/14 12/06/14 Pb Su MD [address] [place] [address] PCP - General 03/23/14 12/04/14 Pb Su MD [address] [place] [address] PCP - General 03/21/14 03/22/14 Pb Su MD [address] [place] [address] PCP - General 03/16/14 03/20/14 Pb Su MD [address] [place] 354189 PCP - General 03/14/14 03/15/14 Pb Su MD [address] [place] 5[address]79 PCP - General 03/09/14 03/13/14 Pb Su MD [address] [place] [address] PCP - General 03/02/14 03/08/14 Pb Su MD [address] [place] [address] PCP - General 02/28/14 03/01/14 Pb Su MD [address] [place] [address] PCP - General 02/25/14 02/27/14 Pb Su MD [address] [place] [address] PCP - General 02/23/14 02/24/14 Pb Su MD [address] [place] 100329 PCP - General 02/17/14 02/22/14 Pb Su MD [address] [place] 502939 PCP - General 11/02/13 02/16/14 Pb Su MD [address] [place] 0[address]609 PCP - General 09/30/13 11/01/13 Pb Su MD [address] [place] [address] PCP - General 06/10/13 09/29/13 Pb Su MD [address] [place] 0[address]29 PCP - General 04/05/13 06/09/13 Pb Su MD [address] [place] [address] PCP - General 09/24/12 04/04/13 Pb Su MD [address] [place] [address] PCP - General 06/11/12 09/23/12 Pb Su MD [address] [place] [address] PCP - General 01/02/12 06/10/12 Pb Su MD [address] [place] [address]019 PCP - General 10/03/11 01/01/12 Sussy Zavala MD [facility] [address] [place] [address] PCP - General 08/05/11 10/02/11 Fernie Erickson MD [facility] [address] [place] [address] PCP - General 10/06/10 08/04/11 documented as of this encounter
--- OUTSIDE RECORDS SUMMARY | 2024-11-14 10:19 | XMS_ITS | Encounter Summary ---
Author Organization [facility] Address [address] [place] [address]. [place], [place] [address] [place] [address] Care Team Providers Care Rag Cutting Machine Operator Name Role Phone Pb Su [...] Pb Su MD Primary Care Provider [phone] Pb Su MD Primary Care Provider Pb Su MD Primary Care Provider Pb Su MD Primary Care Provider Encounter Details Date Type Department Care Team (Late st Contact Info) Description 01/02/[address] [facility] [address] [place] [address] Marquise Salinas MD Social History Tobacco Use [...] apnea documented in this encounter Care Teams Rag Cutting Machine Operator Relationship Specialty Start Date End Date Pb Su MD [address] [place], [place] 130[address] PCP - General 04/26/16 Pb Su MD [address] [place], [place] 0[address]20269 PCP - General 05/19/15 04/25/16 Pb Su MD [address] [place], [place] [address] PCP - General 12/07/14 05/18/15 Pb Su MD [address] [place] [address] PCP - General 12/05/14 12/06/14 Pb Su MD [address] [place] 60[address]69 PCP - General 03/23/14 12/04/14 Pb Su MD [address] [place] 245639 PCP - General 03/21/14 03/22/14 Pb Su MD [address] [place] 8[address]19 PCP - General 03/16/14 03/20/14 Pb Su MD [address] [place] 15[address]29 PCP - General 03/14/14 03/15/14 Pb Su MD [address] [place] 532269 PCP - General 03/09/14 03/13/14 Pb Su MD [address] [place] [address] PCP - General 03/02/14 03/08/14 Pb Su MD [address] [place] [address] PCP - General 02/28/14 03/01/14 Pb Su MD [address] [place] 140219 PCP - General 02/25/14 02/27/14 bP Su MD [address] [place] 165169 PCP - General 02/23/14 02/24/14 Pb Su MD [address] [place] 35[address]39 PCP - General 02/17/14 02/22/14 Pb Su MD [address] [place] 740449 PCP - General 11/02/13 02/16/14 Pb Su MD [address] [place] 94[address]19 PCP - General 09/30/13 11/01/13 Pb Su MD [address] [place] 521249 PCP - General 06/10/13 09/29/13 Pb Su MD [address] [place] [address] PCP - General 04/05/13 06/09/13 Pb Su MD [address] [place] [address] PCP - General 09/24/12 04/04/13 Pb Su MD [address] [place] [address] PCP - General 06/11/12 09/23/12 Pb Su MD [address] [place] [address] PCP - General 01/02/12 06/10/12 documented as of this encounter
--- OUTSIDE RECORDS SUMMARY | 2024-11-14 10:19 | XMS_ITS | Encounter Summary ---
Author Organization [facility] Address [address] [place] [address]. [place], [place] [address] [place] [address] Care Team Providers Care Paving Rammer Name Role Phone Pb Su MD Primary [...] Care Team (Late st Contact Info) Description 08/10/[address] [facility] [address] [place], [place] [id number] Pb Su MD [address] [place] [address] Social History Tobacco Use Types [...] hyperlipidemia documented in this encounter Care Teams Paving Rammer Relationship Specialty Start Date End Date Pb Su MD [address] [place], [place] 380[address] PCP - General 04/26/16 Pb Su MD [address] [place], [place] 23520269 PCP - General 05/19/15 04/25/16 Pb Su MD [address] [place] [address] PCP - General 12/07/14 05/18/15 Pb Su MD [address] [place] [address] PCP - General 12/05/14 12/06/14 Pb Su MD [address] [place] [address] PCP - General 03/23/14 12/04/14 Pb Su MD [address] [place] 515689 PCP - General 03/21/14 03/22/14 Pb Su MD [address] [place] [address] PCP - General 03/16/14 03/20/14 Pb Su MD [address] [place] [address]999 PCP - General 03/14/14 03/15/14 Pb Su MD [address] [place] 0[address]39 PCP - General 03/09/14 03/13/14 Pb Su MD [address] [place], [place] 642029 PCP - General 03/02/14 03/08/14 Pb Su MD [address] [place] [address] PCP - General 02/28/14 03/01/14 Pb Su MD [address] [place] 8[address]19 PCP - General 02/25/14 02/27/14 Pb Su MD [address] [place] 8[address]369 PCP - General 02/23/14 02/24/14 Pb Su MD [address] [place] 548149 PCP - General 02/17/14 02/22/14 Pb Su MD [address] [place] [address] PCP - General 11/02/13 02/16/14 Pb Su MD [address] [place] [address]999 PCP - General 09/30/13 11/01/13 Pb Su MD [address] [place] 27[address]59 PCP - General 06/10/13 09/29/13 Pb Su MD [address] [place], [place] 40[address]79 PCP - General 04/05/13 06/09/13 Pb uS MD [address] [place], [place] 59[address] PCP - General 09/24/12 04/04/13 Pb Su MD [address] [place], [place] 26[address] PCP - General 06/11/12 09/23/12 documented as of this encounter
--- OUTSIDE RECORDS SUMMARY | 2024-11-14 10:19 | XMS_ITS | Encounter Summary ---
Author Organization [facility] Address [address] [place] [address]. [place], [place] [address] [place] [address] Care Team Providers Care Health Promotion Specialist Name Role Phone Pb Su MD Primary Care Provider [phone] Pb Su MD Primary Care Provider Pb [...] Pb Su MD Primary Care Provider [phone] Pb Su MD Primary Care Provider [phone] Pb Su MD Primary Care Provider +[phone] Pb Su MD Primary Care Provider [phone] Pb Su MD Primary Care Provider [phone] Sussy Zavala MD Primary Care Provider [phone] Fernie Erickson MD Primary Care Provider Unav ailable Encounter Details Date Type Department Care Team (Late st Contact Info) Description 03/07/2009 Abstract [facility] Diagnostic Imaging [address] [place], [place] [id number] Pb Su MD [address] [place], [place] 64[address] Social History Tobacco Use Types Packs/Day Years [...] on filedocumented in this encounter Care Teams Health Promotion Specialist Relationship Specialty Start Date End Date Pb Su MD [address] [place], [place] [address]0039 PCP - General 04/26/16 Pb Su MD [address] [place], [place] 57[address]79 PCP - General 05/19/15 04/25/16 Pb Su MD [address] [place] [address] PCP - General 12/07/14 05/18/15 Pb Su MD [address] [place] [address] PCP - General 12/05/14 12/06/14 Pb Su MD [address] [place] [address] PCP - General 03/23/14 12/04/14 Pb Su MD [address] [place] [address] PCP - General 03/21/14 03/22/14 Pb Su MD [address] [place] [address] PCP - General 03/16/14 03/20/14 Pb Su MD [address] [place], [place] 9[address]229 PCP - General 03/14/14 03/15/14 Pb Su MD [address] [place] 534389 PCP - General 03/09/14 03/13/14 Pb Su MD [address] [place] [address] PCP - General 03/02/14 03/08/14 Pb Su MD [address] [place] [address] PCP - General 02/28/14 03/01/14 Pb Su MD [address] [place] [address] PCP - General 02/25/14 02/27/14 Pb Su MD [address] [place] [address] PCP - General 02/23/14 02/24/14 Pb Su MD [address] [place], [place] 18110[address] PCP - General 02/17/14 02/22/14 Pb Su MD [address] [place] [address] PCP - General 11/02/13 02/16/14 Pb Su MD [address] [place], [place] 62[address]49 PCP - General 09/30/13 11/01/13 Pb Su MD [address] [place] [address] PCP - General 06/10/13 09/29/13 Pb Su MD [address] [place] 0[address]49 PCP - General 04/05/13 06/09/13 Pb Su MD [address] [place] [address] PCP - General 09/24/12 04/04/13 Pb Su MD [address] [place] [address] PCP - General 06/11/12 09/23/12 Pb Su MD [address] [place] [address] PCP - General 01/02/12 06/10/12 Pb Su MD [address] [place] 9[address]009 PCP - General 10/03/11 01/01/12 Sussy Zavala MD [facility] [address] [place] [address] PCP - General 08/05/11 10/02/11 Fernie Erickson MD [facility]. [facility] [address] [place] [address] PCP - General 10/06/10 08/04/11 documented as of this encounter
--- OUTSIDE RECORDS SUMMARY | 2024-11-14 10:32 | XMS_ITS | Encounter Summary ---
Author Organization [facility] Address [address] [place] [address] Care Team Providers Care Channel Cementer Name Role Phone Unavailable Primary Care Provider Unavailabl e Encounter Details Date Type Department Care Team (Late st Contact Info) Description 11/11/2020 9:00 AM MINGLE OPERATOR Rapid Evaluation [place] [facility] Community Testing [address] [address] Social History Tobacco Use Types Packs/Day Years Used Date Smoking Tobacco: Never Assessed Sex and Gender Information Value Date Recorded Sex Assigned at Not on file Legal Sex Male 8:21 AM MINGLE OPERATOR Gender Identity Not on file Sexual Orientation Not on file documented as of this encounter Plan of Treatment Not on file documented as of this encounter Visit Diagnoses Not on filedocumented in this encounter
--- OUTSIDE RECORDS SUMMARY | 2024-11-14 10:32 | XMS_ITS | Clinical Summary ---
Author Organization [facility] Address [address] [place] [phone] Care Team Providers Care Club Manager Name Role Phone Unavailable Primary Care Provider Unavailabl e Social History Tobacco Use Types Packs/Day Years Used Date Smoking Tobacco: Never Assessed Sex and Gender Information Value Date Recorded Sex Assigned at Not on file Legal Sex Male 8:21 AM CORRECTIONS SERGEANT Gender Identity Not on file Sexual Orientation Not on file Plan of Treatment Health Maintenance Due Date Last Done Comments Hepatitis C Virus (HCV) Screening 1965 Colonoscopy 2008 Colorectal Cancer Screening 2008 Cologuard 2013 Immunochemical Fecal Occult Blood 2013 Zoster Immunization (1 of 2) 2013 PSA Discussion 2018 SARS-COV-2 Immunization ( season) 2023 Influenza Immunization (Seas on Ended) 2024 07/27/2020 DTaP/Tdap/Td Immunization Discontinued 11/08/2018 TdaP Immunization Completed 11/08/2018 Hepatitis B Immunization Aged Out No longer eligible based on patient's age to complete this topic Meningococcal Immunization (ACWY) Aged Out No longer eligible based on patient's age to complete this topic Pneumococcal Immunization Combined Aged Out No longer eligible based on patient's age to complete this topic Rotavirus Immunization Aged Out No lo nger eligible based on patient's age to complete this topic
--- OUTSIDE RECORDS SUMMARY | 2024-11-14 10:32 | XMS_ITS | Encounter Summary ---
Author Organization [facility] Address [address] [place] [address] Care Team Providers Care Hearing Aid Mechanic Name Role Phone Unavailable Primary Care Provider Unavailabl e Encounter Details Date Type Department Care Team (Late st Contact Info) Description 11/04/2020 Lab Requisition [facility] Community Testing [facility] [address] [place] [address] Gantt, [place] [address] [place] [address] Social History Tobacco Use Types Packs/Day Years Used Date Smoking Tobacco: Never Assessed Sex and Gender Information Value Date Recorded Sex Assigned at Not on file Legal Sex Male 8:21 AM UTILITIES GROUND WORKER Gender Identity Not on file Sexual Orientation Not on file documented as of this encounter Plan of Treatment Not on file documented as of this encounter Procedures Procedure Name Priority Date/Time Associated Diagnosis Comments SARS-COV-2 PCR [facility] ONLY Routine 11/04/2020 8:48 AM UTILITIES GROUND WORKER documented in this encounter Visit Diagnoses Not on filedocumented in this encounter
--- OUTSIDE RECORDS SUMMARY | 2024-11-14 10:32 | XMS_ITS | Encounter Summary ---
Author Organization [facility] Address [address] [place] [address] Care Team Providers Care Frontload Driver Name Role Phone Unavailable Primary Care Provider Unavailabl e Encounter Details Date Type Department Care Team (Late st Contact Info) Description 11/11/2020 Lab Requisition [facility] Community Testing [facility] [address] [place] [address] [place] [address] [place] [address] Social History Tobacco Use Types Packs/Day Years Used Date Smoking Tobacco: Never Assessed Sex and Gender Information Value Date Recorded Sex Assigned at Not on file Legal Sex Male 8:21 AM TECHNICAL ACCOUNT EXECUTIVE Gender Identity Not on file Sexual Orientation Not on file documented as of this encounter Plan of Treatment Not on file documented as of this encounter Procedures Procedure Name Priority Date/Time Associated Diagnosis Comments SARS-COV-2 PCR [facility] ONLY Routine 11/11/2020 10:31 AM TECHNICAL ACCOUNT EXECUTIVE documented in this encounter Visit Diagnoses Not on filedocumented in this encounter
--- OUTSIDE RECORDS SUMMARY | 2024-11-14 10:33 | XMS_ITS | Encounter Summary ---
Author Organization [facility] Address [address] [place] [address] Care Team Providers Care Sciences Dean Name Role Phone Unavailable Primary Care Provider Unavailabl e Encounter Details Date Type Department Care Team (Late st Contact Info) Description 11/04/2020 9:00 AM VOLUNTEER RECRUITER Rapid Evaluation [place] [facility] Community Testing [address] [address] Social History Tobacco Use Types Packs/Day Years Used Date Smoking Tobacco: Never Assessed Sex and Gender Information Value Date Recorded Sex Assigned at Not on file Legal Sex Male 8:21 AM VOLUNTEER RECRUITER Gender Identity Not on file Sexual Orientation Not on file documented as of this encounter Plan of Treatment Not on file documented as of this encounter Visit Diagnoses Not on filedocumented in this encounter
== END 2024-11-08 08:44 | disposition short-term general hospital (02) ==
PROVIDERS: Emergency Provider Nurse Practitioner; PCP Family Medicine
DX: R10.32 Left lower quadrant pain (principal); Z87.891 Personal history of nicotine dependence
CPT/HCPCS: 99212; G0463

== ENCOUNTER 2024-11-08 09:01 | Emergency (ER) | payer OTHER, SELFPAY ==
--- NOTE | ~2024-11-08 | CT_ITS ---
CT of the Abdomen and Pelvis: Indication: Abdominal pain Technique: 2.5 mm axial scans were obtained through the abdomen and pelvis following intravenous adm inistration of 100 cc of Omnipaque 350. Dose reduction technique was used on this scan by utilizing a utomated exposure control and iterative reconstruction technique. The dose-length product (DLP) was 9 67.89 mGy-cm. Findings: Scans through the lung bases are unremarkable. The liver, spleen, pancreas, gallbladder, adrenals and left kidney are within normal limits. 2 mm non obstructing right renal stone noted. No evidence of aortic aneurysm. No lymphadenopathy. There is wall thickening and pericolonic inflammatory change the sigmoid colon, compatible with acute diverticulitis. There is pericolic phlegmon but no mature abscess. No free air. No bowel obstruction . Images through the pelvis were performed. Urinary bladder unremarkable. No pelvic mass seen. No ascit es. Small fat-containing right inguinal hernia present. Impression: Acute sigmoid diverticulitis with probable early developing pericolonic phlegmon. No abscess or free air. Reviewed, dictated and finalized at [facility]. 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 No abscess or free air.
--- NOTE | 2024-11-08 09:12 | ED.ABDPAIN ---
HPI - Abdominal Pain General Chief Complaint: Abdominal Pain Stated Complaint: abdominal pain Time Seen by Provider: 11/08/24 09:06 History of Present Illness HPI narrative: Pt presents with llq abdominal pain. Pain was intermittent at first over last week or so but mor persistent today. Pt went to [facility] and was transferred here for evaluation. Pt denies urinary symptoms or vomiting. Related Data Home Medications ?Medication ?Instructions ?Recorded ?Confirmed ?Last Taken ?Type cholecalciferol (vitamin D3) 25 25 mcg PO DAILY 10/07/24 10/13/24 10/09/24 History mcg (1,000 unit) capsule (Vitamin D3) collagen,hydrolysate 500 mg-biotin 1 cap PO DAILY 10/07/24 10/13/24 10/09/24 History 800 mcg-ascorbic acid 50 mg capsule (Collagen 1500 Plus C) magnesium 200 mg tablet 200 mg PO DAILY 10/07/24 10/13/24 10/09/24 History multivitamin 1 tablet PO DAILY 10/07/24 10/13/24 10/09/24 History Allergies Allergy/AdvReac Type Severity Reaction Status Date / Time codeine AdvReac Severe Abdominal Verified 11/08/24 08:33 Pain Review of Systems Review of Systems: All systems reviewed & are unremarkable except as noted in HPI and below PMFSH Past Medical History Medical History Upper back pain Carpal tunnel syndrome Bilateral carpal tunnel syndrome Neck pain Paresthesias Bilateral hand pain Family History Family History Father Hypertension Social History Social History Smoking packs per day: 0.5 Smoking cigarettes per day: 10.0 Years smoked: 10 Smoking pack-years: 5.00 Smoking status: Former smoker Tobacco type: cigarettes Second hand tobacco smoke exposure: No Smoking end date: 10/07/94 Alcohol intake: current Alcohol use details: occasional Substance use: never Substance use type: does not use Living arrangements: with family Occupation/Education: occupation Gender identity (if verbalized by the patient): Male Spiritual care concerns: No Exam Const: General: healthy appearing and no acute distress Nutritional Appearance: well nourished Orientation/consciousness: patient oriented x3 Limitations: no limitations Chest: Chest palpation & inspection: normal inspection of the chest Resp: Effort & Inspection: normal respiratory effort Auscultation: clear to auscultation bilaterally Cardio: Rate: regular rate Rhythm: regular rhythm GI: GI Palp: Yes Soft to palpation and Yes Tenderness to palpation present (GI) (llq without guarding or rebound) Auscultation: normal bowel sounds Skin: General skin exam: normal color Wounds: no wounds Neuro: General: patient oriented x3, moves all extremities, no focal motor deficits and CN's II-XI intact bilaterally Cranial nerves: Yes Nystagmus not present Speech: normal speech Extrem: General: normal to inspection and no clubbing, cyanosis or edema Psych: Mental Status: mental status grossly normal Affect: normal affect Attitude: cooperative Course Vital Signs Vital signs: Vital Signs Temperature 97.2 F L 11/08/24 10:24 Pulse Rate 63 11/08/24 10:24 Respiratory Rate 16 11/08/24 10:24 Blood Pressure 119/89 11/08/24 10:24 Pulse Oximetry 100 11/08/24 10:24 Oxygen Delivery Room Air 11/08/24 10:24 Temperature 97.2 F L 11/08/24 10:24 Pulse Rate 63 11/08/24 10:24 Respiratory Rate 16 11/08/24 10:24 Blood Pressure 119/89 11/08/24 10:24 Pulse Oximetry 100 11/08/24 10:24 Oxygen Delivery Room Air 11/08/24 10:24 MDM - Abdominal Pain MDM Narrative Medical decision making narrative: Pt presents with llq pain intermittent at first and now more persistent. will get labs, ua and CT to rule out pathology patience diverticulitis. ct shows diverticulitis labs look ok. home on augmentin. Lab Data 11/08/24 10:28 11/08/24 10:57 Labs: Lab Results 11/08/24 11/08/24 11/08/24 Range/Units 09:38 10:28 10:57 WBC 7.0 (4.5-10.0) K/mm3 RBC 4.74 (4.6-6.20) M/mm3 Hgb 14.1 (14.0-18.0) g/dL Hct 41.7 L (42.0-52.0) % MCV 88.0 (80-100) fl MCH 29.7 (26-34) pg MCHC 33.8 (32-36) g/dl RDW 12.1 (11.5-14.5) % Plt Count 347 (150-375) k/mm3 MPV 10.1 (7.4-10.4) fl Immature Gran % (Auto) 0.3 (0-0.5) % Neut % (Auto) 70.0 (45.5-73.1) % Lymph % (Auto) 17.6 L (18.3-44.2) % Gilliam % (Auto) 10.2 H (2.6-8.5) % Eos % (Auto) 1.0 (0-4.4) % Baso % (Auto) 0.9 (0.2-1.2) % Lymph # (Auto) 1.24 (0.9-3.2) K/mm3 Gilliam # (Auto) 0.7 H (0.1-0.6) K/mm3 Eos # (Auto) 0.1 (0-0.3) K/mm3 Baso # (Auto) 0.1 (0.0-0.1) K/mm3 Abs Immat Gran (auto) 0.02 (0.00-0.031) K/mm3 Absolute Neuts (auto) 4.9 (1.3-6.7) K/mm3 Absolute Nucleated RBC 0.000 (0.0-0.012) K/mm3 Nucleated RBC % 0.0 (0.0-0.2) % PT 14.0 (11.1-14.7) Seconds INR 1.0 APTT 29.1 (22.3-36.8) Seconds Sodium 136 L (137-145) mmol/L Potassium 4.6 (3.4-5.0) mmol/L Chloride 103 (98-107) mmol/L Carbon Dioxide 28 (22-30) mmol/L Anion Gap 5 (4-12) mmol/L BUN 20 (9-20) mg/dL Creatinine 1.50 1.20 (0.8-1.5) mg/dL Estim Creat Clear Calc Not Reportable 72 Estimated GFR 48 L > 60 (59 - ) Glucose 89 (65-110) mg/dL Calcium 9.1 (8.4-10.2) mg/dL Total Bilirubin 0.6 (0.2-1.3) mg/dL AST 34 (17-59) U/L ALT 35 (6-50) U/L Alkaline Phosphatase 89 (38-126) U/L Total Protein 7.0 (6.3-8.2) g/dL Albumin 4.0 (3.5-5.1) g/dL Urine Color Yellow (Yellow) Urine Appearance Clear (Clear) Urine pH 8.0 (5.0-9.0) Ur Specific [place] 1.021 (1.001-1.035) Urine Protein Negative (Negative) mg/dL Urine Glucose (UA) Negative (Negative) mg/dL Urine Ketones Negative (Negative) mg/dL Ur Blood (Man) Negative (Negative) Urine Nitrate Negative (Negative) Urine Bilirubin Negative (Negative) Urine Urobilinogen 0.2 (<2.0) mg/dL Leukocyte Esterase Rfl Negative (Negative) SHASHI/UL Imaging Data Radiologist's impression: ITS Impressions Abdomen/Pelvis CT 11/08/24 09:51 Impression: Acute sigmoid diverticulitis with probable early developing pericolonic phlegmon. No abscess or free air. Discharge Plan Discharge Clinical Impression: Diverticulitis Patient Disposition: Home, Self-Care Condition: Stable Instructions: Antibiotic Form, Diverticulitis (DC) Patient Language: Nigerian Prescriptions: New amoxicillin-pot clavulanate 875-125 mg tablet 1 tablet PO Q12H Qty: 28 0RF naproxen [Naprosyn] 500 mg tablet 500 mg PO BID Qty: 20 0RF No Action multivitamin Tablet 1 tablet PO DAILY cholecalciferol (vitamin D3) [Vitamin D3] 25 mcg (1,000 unit) Capsule 25 mcg PO DAILY magnesium 200 mg Tablet 200 mg PO DAILY Collagen 1500 Plus C 500 mg-800 mcg- 50 mg Capsule 1 cap PO DAILY rosuvastatin 5 mg tablet 5 mg PO DAILY Qty: 90 2RF Follow-up/Referrals: Froylan Kenney MD [Primary Care Provider] -
[2024-11-08 09:40] LABS: Estimated Glomerular Filt Rate 48
[2024-11-08 10:24] VITALS: BP 119/89; PULSE 63; RESP 16; TEMP 36.2; O2SAT 100
[2024-11-08 10:35] LABS: Basophils Absolute Auto 0.1 K/mm3 (0.0-0.1); Basophils Percent Auto 0.9 % (0.2-1.2); Eosinophils Absolute Auto 0.1 K/mm3 (0-0.3); Hematocrit 41.7 % (42.0-52.0); Hemoglobin 14.1 g/dL (14.0-18.0); Immature Granulocyte Absolute 0.02 K/mm3 (0.00-0.031); Immature Granulocyte Percent A 0.3 % (0-0.5); Lymphocytes Absolute Auto 1.24 K/mm3 (0.9-3.2); Lymphocytes Percent Auto 17.6 % (18.3-44.2); Mean Corpuscular HGB Conc 33.8 g/dl (32-36); Mean Corpuscular Hemoglobin 29.7 pg (26-34); Mean Platelet Volume 10.1 fl (7.4-10.4); Monocytes Absolute Auto 0.7 K/mm3 (0.1-0.6); Monocytes Percent Auto 10.2 % (2.6-8.5); Neutrophils Absolute Auto 4.9 K/mm3 (1.3-6.7); Platelet Count Result 347 k/mm3 (150-375); Red Blood Count 4.74 M/mm3 (4.6-6.20); Red Cell Distribution Width 12.1 % (11.5-14.5)
[2024-11-08 10:37] LABS: Add Urine Microscopic? NO; Appearance Urine Clear (Clear); Bilirubin Urine Negative (Negative); Blood Urine Negative (Negative); Color Urine Yellow (Yellow); Glucose Urine UA Negative (Negative); Ketones Urine Negative (Negative); Leukocyte Esterase Ur Negative LEU/UL (Negative); Nitrate Urine Negative (Negative); Protein Urine Negative (Negative); Specific Grav Ur 1.021 (1.001-1.035); Urobilinogen Urine 0.2 mg/dL (<2.0)
[2024-11-08 10:47] LABS: Partial Thromboplastin Time 29.1 Seconds (22.3-36.8)
[2024-11-08 11:18] LABS: Alanine Aminotransferase 35 U/L (6-50); Alkaline Phosphatase 89 U/L (38-126); Anion Gap 5 mmol/L (4-12); Aspartate Amino Transferase 34 U/L (17-59); Bilirubin,Total 0.6 mg/dL (0.2-1.3); Blood Urea Nitrogen 20 mg/dL (9-20); Calcium 9.1 mg/dL (8.4-10.2); Carbon Dioxide 28 mmol/L (22-30); Chloride 103 mmol/L (98-107); Estimated CRCL calculation 72 ml/min; Estimated Glomerular Filt Rate > 60; Glucose 89 mg/dL (65-110); Potassium 4.6 mmol/L (3.4-5.0); Sodium 136 mmol/L (137-145)
--- OUTSIDE RECORDS SUMMARY | 2024-11-14 22:22 | XMS_ITS | Encounter Summary ---
Author Organization [facility] Address [address] [place] [address]. [place], [place] [address] [place] [address] Care Team Providers Care Administrative Support Assistant Name Role Phone Pb Su MD Primary Care Provider [phone] Encounter Details Date Type Department Care Team (Latest Contact Info) Description 06/03/2016 Abstract [facility] Medical Group [...] on filedocumented in this encounter Care Teams Administrative Support Assistant Relationship Specialty Start Date End Date Pb Su MD [address] [place] [address] PCP - General 04/26/16 documented as of this encounter
--- OUTSIDE RECORDS SUMMARY | 2024-11-14 22:22 | XMS_ITS | Encounter Summary ---
Author Organization [facility] Address [address] [place] [address]. [place], [place] [address] [place] [address] Care Team Providers Care Warehouse Analyst Name Role Phone Pb Su MD Primary Care Provider [phone] Pb Su MD Primary Care Provider [phone] Encounter Details Date Type Department Care Team (Latest Contact Info) Description 05/19/2015 Abstract [facility] Medical Group Social History Tobacco Use [...] on filedocumented in this encounter Care Teams Warehouse Analyst Relationship Specialty Start Date End Date Pb Su MD [address] [place] [address] PCP - General 04/26/16 Pb Su MD [address] [place] [address] PCP - General 05/19/15 04/25/16 documented as of this encounter
--- OUTSIDE RECORDS SUMMARY | 2024-11-14 22:22 | XMS_ITS | Encounter Summary ---
Author Organization [facility] Address [address] [place] [address]. [place], [place] [address] [place] [address] Care Team Providers Care Baseball Pitcher Name Role Phone Pb Su MD Primary Care Provider [phone] Encounter Details Date Type Department Care Team (Latest Contact Info) Description 11/11/2016 Abstract [facility] Medical Group Social History Tobacco Use [...] on filedocumented in this encounter Care Teams Baseball Pitcher Relationship Specialty Start Date End Date Pb Su MD [address] [place] [address] PCP - General 04/26/16 documented as of this encounter
--- OUTSIDE RECORDS SUMMARY | 2024-11-14 22:22 | XMS_ITS | Encounter Summary ---
Author Organization [facility] Address [address] [place] [address]. [place], [place] [address] [place] [address] Care Team Providers Care Linen Room Houseperson Name Role Phone Pb Su MD Primary Care Provider [phone] Encounter Details Date Type Department Care Team (Latest Contact Info) Description 12/25/2016 Abstract [facility] Medical Group Social History Tobacco [...] on filedocumented in this encounter Care Teams Linen Room Houseperson Relationship Specialty Start Date End Date Pb Su MD [address] [place] [address] PCP - General 04/26/16 documented as of this encounter
--- OUTSIDE RECORDS SUMMARY | 2024-11-14 22:22 | XMS_ITS | Encounter Summary ---
Author Organization [facility] Address [address] [place] [address]. [place], [place] [address] [place] [address] Care Team Providers Care Formulation Scientist Name Role Phone Pb Su MD Primary Care Provider +1 [phone] Encounter Details Date Type Department Care Team (Latest Contact Info) Description 06/05/[address] [facility] Social History Tobacco Use [...] on filedocumented in this encounter Care Teams Formulation Scientist Relationship Specialty Start Date End Date Pb Su MD [address] [place] [address] PCP - General 04/26/16 documented as of this encounter
--- OUTSIDE RECORDS SUMMARY | 2024-11-14 22:22 | XMS_ITS | Encounter Summary ---
Author Organization [facility] Address [address] [place] [address]. [place] [address] [place] [address] Care Team Providers Care Grease Press Helper Name Role Phone Pb Su MD Primary Care Provider +1- [phone] Pb Su MD Primary Care Provider Pb Su MD Primary Care Provider +1- [phone] Encounter Details Date Type Department Care Team (Latest Contact Info) Description 01/24/2015 Abstract [facility] Medical [facility] Social [...] on filedocumented in this encounter Care Teams Grease Press Helper Relationship Specialty Start Date End Date Pb Su MD [address] [place], [place] [id number] PCP - General 04/26/16 Pb Su MD [address] [place], [place] [id number] PCP - General 05/19/15 04/25/16 Pb Su MD [address] [place] [address] PCP - General 12/07/14 05/18/15 documented as of this encounter
--- OUTSIDE RECORDS SUMMARY | 2024-11-14 22:22 | XMS_ITS | Encounter Summary ---
Author Organization [facility] Address [address] [place] [address]. [place] [address] [place] [address] Care Team Providers Care Social Work Job Titles Name Role Phone Pb Su MD Primary Care Provider +1- [phone] Pb Su MD Primary Care Provider [phone] Pb Su MD Primary Care Provider +1- [phone] Encounter Details Date Type Department Care Team (Latest Contact Info) Description 01/09/2015 Abstract [facility] Medical [facility] Social History Tobacco Use [...] on filedocumented in this encounter Care Teams Social Work Job Titles Relationship Specialty Start Date End Date Pb Su MD [address] [place], [place] [id number] PCP - General 04/26/16 Pb Su MD [address] [place], [place] [id number] PCP - General 05/19/15 04/25/16 Pb Su MD [address] [place] [address] PCP - General 12/07/14 05/18/15 documented as of this encounter
--- OUTSIDE RECORDS SUMMARY | 2024-11-14 22:22 | XMS_ITS | Encounter Summary ---
Author Organization [facility] Address [address] [place] [address]. [place] [address] [place] [address] Care Team Providers Care Station Engineer Chief Name Role Phone Pb Su MD Primary Care Provider [phone] Encounter Details Date Type Department Care Team (Latest Contact Info) Description 05/23/2016 Abstract [facility] Medical Group Social History [...] Tiffanie Murillo R.N.; May 23 2016 1:21PM CABINET INSTALLER (Author) documented in this encounter Plan of Treatment Not on file documented as of this encounter Visit Diagnoses Not on filedocumented in this encounter Care Teams Station Engineer Chief Relationship Specialty Start Date End Date Pb Su MD [address] [place] [address] PCP - General 04/26/16 documented as of this encounter
--- OUTSIDE RECORDS SUMMARY | 2024-11-14 22:22 | XMS_ITS | Encounter Summary ---
Author Organization [facility] [place] [facility] Address [address] [place] [address]. [place] [address] [place] [address] Care Team Providers Care Automotive Shop Foreman Name Role Phone Pb Su MD Primary Care Provider +1- [phone] Pb Su MD Primary Care Provider +1- [phone] Pb Su MD Primary Care Provider +1- [phone] Encounter Details Date Type Department Care Team (Latest Contact Info) Description 04/10/2015 Abstract [facility] Medical Group Social History Tobacco [...] on filedocumented in this encounter Care Teams Automotive Shop Foreman Relationship Specialty Start Date End Date Pb Su MD [address] [place], [place] [id number] PCP - General 04/26/16 Pb Su MD [address] [place], [place] [id number] PCP - General 05/19/15 04/25/16 Pb Su MD [address] [place] [address] PCP - General 12/07/14 05/18/15 documented as of this encounter
--- OUTSIDE RECORDS SUMMARY | 2024-11-14 22:22 | XMS_ITS | Encounter Summary ---
Author Organization [facility] Address [address] [place] [address]. [place] [address] [place] [address] Care Team Providers Care Associate Professor Of Anthropology Name Role Phone Pb Su MD Primary Care Provider +1 [phone] Encounter Details Date Type Department Care Team (Latest Contact Info) Description 04/30/2016 Abstract [facility] Medical Group Social History Tobacco Use [...] 30-100 POTENTIAL INTOXICATION >100 TESTING PERFORMED AT [address] [address] documented in this encounter Plan of Treatment Not on file documented as of this encounter Visit Diagnoses Not on filedocumented in this encounter Care Teams Associate Professor Of Anthropology Relationship Specialty Start Date End Date Pb Su MD [address] [place] [address] PCP - General 04/26/16 documented as of this encounter
--- OUTSIDE RECORDS SUMMARY | 2024-11-14 22:22 | XMS_ITS | Encounter Summary ---
Author Organization [facility] Address [address] [place] [address]. [place], [place] [address] [place] [address] Care Team Providers Care Fretted Instrument Repairer Name Role Phone Pb Su MD Primary Care Provider +1 [phone] Encounter Details Date Type Department Care Team (Latest Contact Info) Description 04/28/2016 Abstract [facility] Medical [facility] Social History Tobacco Use [...] doses. mL/min/1.73m'2 Lipid Profile 26Apr2016 10:13AM Pb uS Test Name Result Flag Reference CHOLESTEROL 223 [...] on filedocumented in this encounter Care Teams Fretted Instrument Repairer Relationship Specialty Start Date End Date Pb Su MD [address] [place] [address] PCP - General 04/26/16 documented as of this encounter
--- OUTSIDE RECORDS SUMMARY | 2024-11-14 22:22 | XMS_ITS | Encounter Summary ---
Author Organization [facility] Address [address] [place] [address]. [place], [place] [address] [place] [address] Care Team Providers Care Machine Quilt Stuffer Name Role Phone Pb Su MD Primary Care Provider [phone] Encounter Details Date Type Department Care Team (Latest Contact Info) Description 05/28/2016 Abstract [facility] Medical Group Social History Tobacco [...] Metabolic Prof ( CMP ); Status:Active; Requested for:96Crn7211; ?? Creatine Kinase ( CK ) ( CPK ); Status:Active; Requested for:44Bbk5661; ?? Lipid Profile; Status:Active; Requested for:93Bvw8182; Signatures Electronically signed by : Tiffanie Murillo R.N.; May 28 2016 9:22AM RENAL DIALYSIS RN (Author) documented in this encounter Plan of Treatment Not on file documented as of this encounter Visit Diagnoses Not on filedocumented in this encounter Care Teams Machine Quilt Stuffer Relationship Specialty Start Date End Date Pb Su MD [address] [place] [address] PCP - General 04/26/16 documented as of this encounter
--- OUTSIDE RECORDS SUMMARY | 2024-11-14 22:22 | XMS_ITS | Encounter Summary ---
Author Organization [facility] Address [address] [place] [address]. [place], [place] [address] [place] [address] Care Team Providers Care Construction Pit Worker Name Role Phone Pb Su MD Primary Care Provider +1- [phone] Pb Su MD Primary Care Provider +1- [phone] Encounter Details Date Type Department Care Team (Latest Contact Info) Description 05/24/2015 Abstract [facility] Medical Group Social History Tobacco [...] on filedocumented in this encounter Care Teams Construction Pit Worker Relationship Specialty Start Date End Date Pb Su MD [address] [place] [address] PCP - General 04/26/16 Pb Su MD [address] [place] [address] PCP - General 05/19/15 04/25/16 documented as of this encounter
--- OUTSIDE RECORDS SUMMARY | 2024-11-14 22:22 | XMS_ITS | Encounter Summary ---
Author Organization [facility] Address [address] [place] [address]. [place] [address] [place] [address] Care Team Providers Care Olive Knocker Name Role Phone Pb Su MD Primary Care Provider [phone] Pb Su MD Primary Care Provider +1- [phone] Encounter Details Date Type Department Care Team (Late st Contact Info) Description 05/19/2015 Abstract [facility] [address] [place], [place] [id number] Pb Su MD [address] [place], [place] [address] Social History Tobacco Use Types Packs/Day Years [...] Cough documented in this encounter Care Teams Olive Knocker Relationship Specialty Start Date End Date Pb Su MD [address] [place], [place] [address] PCP - General 04/26/16 Pb Su MD [address] [place], [place] [address] PCP - General 05/19/15 04/25/16 documented as of this encounter
--- OUTSIDE RECORDS SUMMARY | 2024-11-14 22:22 | XMS_ITS | Encounter Summary ---
Author Organization [facility] Address [address] [place] [address]. [place], [place] [address] [place] [address] Care Team Providers Care Fabric Worker Leader Name Role Phone Pb Su MD Primary Care Provider [phone] Pb Su MD Primary Care Provider +1- [phone] Encounter Details Date Type Department Care Team (Latest Contact Info) Description 06/27/2015 Abstract [facility] Medical Group Social History Tobacco Use [...] on filedocumented in this encounter Care Teams Fabric Worker Leader Relationship Specialty Start Date End Date Pb Su MD [address] [place] [address] PCP - General 04/26/16 Pb Su MD [address] [place] [address] PCP - General 05/19/15 04/25/16 documented as of this encounter
--- OUTSIDE RECORDS SUMMARY | 2024-11-14 22:22 | XMS_ITS | Encounter Summary ---
Author Organization [facility] Address [address] [place] [address]. [place], [place] [address] [place] [address] Care Team Providers Care Library Media Specialist Name Role Phone Pb Su MD Primary Care Provider +1 [phone] Encounter Details Date Type Department Care Team (Late st Contact Info) Description 10/21/2016 Abstract [facility] Family Medicine - [place] [address] [place] [address] Pb Su MD [address] [place] [address] Social History Tobacco Use Types Packs/Day Years Used Date Smoking Tobacco: Never Assessed Sex and Gender Information Value Date Recorded Sex Assigned at Not on file Legal Sex Male 7:22 PM CDT Gender Identity Not on file Sexual Orientation Not on file documented as of this encounter Last Filed Vital Signs Vital Sign Reading Time Taken Comments Blood Pressure 120/64 10/21/2016 10:12 AM OPERATIONS COORDINATOR Pulse 67 10/21/2016 10:12 AM OPERATIONS COORDINATOR Temperature - - Respiratory Rate - [...] Tablet; TAKE 1 TABLET DAILY DIRECTED; Therapy: 78Rre5538 to (Evaluate:40Zco5207) Requested for: 67Dwn4174; Last Rx:33Vjy5698 Ordered Rx By: Pb Su; Dispense: 60 Days ; #:60 Tablet; Refill: 2; For: PMH: History of hyperlipidemia; GAYLE = N; Verified Transmission to [facility]; Last Updated By: Marci Barber; 07/16/2016 2:44:47 PM 2. Claritin 10 MG Oral Tablet; Therapy: (Recorded:13Uur1489) to Recorded Dispense: 0 Days ; #: Sufficient TABS; Refill: 0; GAYLE = N; Record; Last Updated By: Denisse eCja; 06/29/2013 7:41:31 AM Allergies 1. Acetaminophen-Codeine #3 [...] 1. CMP / Liver; Status:Active; Requested for:21Oct2016; Perform:[facility]; Due:51Gum7170;Ordered; For:Hyperlipidemia; Ordered By:Pb Su; 2. Lipid Profile; Status:Active; Requested for:21Oct2016; Perform:[facility]; Due:65Yoh5927;Ordered; For:Hyperlipidemia; Ordered By:Pb Su; Lower back pain 3. Schedule Follow up 2 weeks Outpatient Follow-up Status: Hold For - Scheduling Requested for: 21Oct2016 Ordered; For: Lower back pain; Ordered By: Pb Su Performed: Due: 37Ril7506 4. Begin a walking program. Start with [...] back pain; Ordered By:Pb Su; 20. Call 91 if: You have any loss of bowel [...] spasm; GAYLE = N; Verified Transmission to [facility] # [id number]; Last Updated By: [facility]; 10/21/2016 11:35:26 AM Signatures Electronically signed by : Pb Su M.D.; Oct 21 2016 4:29PM OPERATIONS COORDINATOR (Author) documented in this encounter Plan of Treatment Not on file documented as of this encounter Visit Diagnoses Not on filedocumented in this encounter Care Teams Library Media Specialist Relationship Specialty Start Date End Date Pb Su MD [address] [place] [address] PCP - General 04/26/16 documented as of this encounter
--- OUTSIDE RECORDS SUMMARY | 2024-11-14 22:22 | XMS_ITS | Encounter Summary ---
Author Organization [facility] Address [address] [place] [address]. [place] [address] [place] [address] Care Team Providers Care Hedis Abstractor Name Role Phone Pb Su MD Primary Care Provider [phone] Encounter Details Date Type Department Care Team (Latest Contact Info) Description 06/04/2016 Abstract [facility] Medical Group Social History Tobacco [...] Tiffanie Murillo R.N.; Jun 04 2016 1:39PM WINDOWS DESKTOP ENGINEER (Author) documented in this encounter Plan of Treatment Not on file documented as of this encounter Visit Diagnoses Not on filedocumented in this encounter Care Teams Hedis Abstractor Relationship Specialty Start Date End Date Pb Su MD [address] [place] [address] PCP - General 04/26/16 documented as of this encounter
--- OUTSIDE RECORDS SUMMARY | 2024-11-14 22:22 | XMS_ITS | Encounter Summary ---
Author Organization [facility] Address [address] [place] [address]. [place] [address] [place] [address] Care Team Providers Care Elementary School Band Director Name Role Phone Pb Su MD Primary Care Provider [phone] Encounter Details Date Type Department Care Team (Latest Contact Info) Description 01/19/2018 Abstract [facility] Sonja Joiner MD [address] [place] [phone] Social History Tobacco Use Types Packs/Day Years [...] on filedocumented in this encounter Care Teams Elementary School Band Director Relationship Specialty Start Date End Date Pb Su MD [address] [place] [address] PCP - General 04/26/16 documented as of this encounter
--- OUTSIDE RECORDS SUMMARY | 2024-11-14 22:22 | XMS_ITS | Encounter Summary ---
Author Organization [facility] Address [address] [place] [address]. [place] [address] [place] [address] Care Team Providers Care Spark Tester Name Role Phone Pb Su MD Primary Care Provider +1- [phone] Pb Su MD Primary Care Provider Pb Su MD Primary Care Provider Encounter Details Date Type Department Care Team (Late st Contact Info) Description 03/20/2015 Abstract [facility] Medical [facility] Family Medicine - [place] [address] [place] [address] Pb Su MD [address] [place] [address] Social History Tobacco Use Types Packs/Day Years [...] are noted. Current treatment includes Increasing fluid, swtt-dpl-nwokerf cough and cold remedies. By report, there [...] 2. Claritin 10 MG Oral Tablet; Therapy: (Recorded:87Slu4408) to Recorded 3. PredniSONE 20 MG Oral [...] Cough; Ordered By: Pb Su Performed: Due: 20Rvv1868; Last Updated By: Vanessa Gray; 03/20/2015 12:45:04 PM Obstructive sleep apnea 2. Benzonatate 200 MG Oral Capsule; TAKE 1 CAPSULE 3 TIMES DAILY NEEDED Rx By: Pb Su; Dispense: 7 Days ; #:21 Capsule; Refill: 1; For: Obstructive sleep apnea; GAYLE = N; Verified Transmission to [facility]; Last Updated By: Marci Barber; 03/20/2015 7:13:25 AM 3. Avoid alcoholic beverages.; Status:Active; Requested for:55Jaw4298; Ordered; For:Obstructive sleep apnea; Ordered By:Pb Su; 4. Avoid exposure to cigarette smoke.; Status:Active; Requested for:98Non0745; Ordered; For:Obstructive sleep apnea; Ordered By:Pb Su; 5. Avoid medications and/or triggers that caused your symptoms/problems.; Status:Active; Requested for:12Zcp4351; Ordered; For:Obstructive sleep apnea; Ordered By:Pb Su; 6. Avoid sleeping on your back.; Status:Active; Requested for:77Tcf3149; Ordered; For:Obstructive sleep apnea; Ordered By:Pb Su; 7. Begin or continue regular aerobic exercise. Gradually work up to at least 3 sessions of 30 minutes of exercise a week.; Status:Active; Requested for:17Pia8620; Ordered; For:Obstructive sleep apnea; Ordered By:Pb Su; 8. Continue with our present treatment plan.; Status:Active; Requested for:14Cjb2165; Ordered; For:Obstructive sleep apnea; Ordered By:Pb Su; 9. Please bring all medicines, vitamins, and herbal supplements with you when you come to the office.; Status:Active; Requested for:17Oax6118; Ordered; For:Obstructive sleep apnea; Ordered By:Pb Su; 10. Some eating tips that can help you lose weight.; Status:Active; Requested for:03Sjz4190; Ordered; For:Obstructive sleep apnea; Ordered By:Pb Su; 11. Some eating tips that can help you lose weight.; Status:Active; Requested for:29Bdb6148; Ordered; For:Obstructive sleep apnea; Ordered By:Pb Su; [...] we can help. You may also call 9-678-MJCE-NOW for free resources and assistance.; Status:Active; Requested for:20Mar2015; Ordered; For:Obstructive sleep apnea; Ordered By:Pb Su; 17. Call if: The symptoms are not better in 7 days.; Status:Active; Requested for:20Mar2015; Ordered; For:Obstructive sleep apnea; Ordered By:Pb Su; 18. Call if: The symptoms come back after a period of time of being normal.; Status:Active; Requested for:08Fng0710; Ordered; For:Obstructive sleep apnea; Ordered By:Pb Su; 19. Call if: You feel unusually tired.; Status:Active; Requested for:42Wta6201; Ordered; For:Obstructive sleep apnea; Ordered By:Pb Su; 20. Call if: You feel your heart is beating too fast.; Status:Active; Requested for:73Pjn9813; Ordered; For:Obstructive sleep apnea; Ordered By:Pb Su; 21. Call if: You get a headache that does not go away with your usual treatment.; Status:Active; Requested for:78Nzx6008; Ordered; For:Obstructive sleep apnea; Ordered By:Pb Su; 22. Call if: You have a dry, hacking cough.; Status:Active; Requested for:12Zrk0187; Ordered; For:Obstructive sleep apnea; Ordered By:Pb Su; 23. Call if: You have feelings of extreme sadness and feelings of hopelessness.; Status:Active; Requested for:97Kcw3138; Ordered; For:Obstructive sleep apnea; Ordered By:Pb Su; 24. Call if: You have frequent headaches.; Status:Active; Requested for:60Ofq4714; Ordered; For:Obstructive sleep apnea; Ordered By:Pb Su; 25. Call if: You have swelling and puffiness of your lower leg or ankles.; Status:Active; Requested for:20Tod4109; Ordered; For:Obstructive sleep apnea; Ordered By:Pb Su; 26. Call if: Your nose is stuffy or feels plugged.; Status:Active; Requested for:29Aog8197; Ordered; For:Obstructive sleep apnea; Ordered By:Pb Su; 27. Call 911 if: You are considering suicide.; Status:Active; Requested for:69Zwe6998; Ordered; For:Obstructive sleep apnea; Ordered By:Pb Su; 28. Call 911 if: You experience a new kind of chest pain (angina) or pressure.; Status:Active; Requested for:20Alc3194; Ordered; For:Obstructive sleep apnea; Ordered By:Pb Su; 29. Seek Immediate Medical Attention if: You are thinking about harming yourself or someone else.; Status:Active; Requested for:45Vlo2477; Ordered; For:Obstructive sleep apnea; Ordered By:Pb Su; 30. Seek Immediate Medical Attention if: You faint or lose consciousness.; Status:Active; Requested for:08Qra3922; Ordered; For:Obstructive sleep apnea; Ordered By:Pb Su; 31. Seek Immediate Medical Attention if: You feel short of breath even while resting.; Status:Active; Requested for:71Kta3138; Ordered; For:Obstructive sleep apnea; Ordered By:Pb Su; 32. Seek Immediate Medical Attention if: Your child tells you about thoughts of harming themselves or someone else.; Status:Active; Requested for:48Vxw7145; Ordered; For:Obstructive sleep apnea; Ordered By:Pb Su; 33. Seek Immediate Medical Attention if: Your depression is worse.; Status:Active; Requested for:86Chl8996; Ordered; For:Obstructive sleep apnea; Ordered By:Pb Su; 34. Seek Immediate Medical Attention if: Your shortness of breath is getting worse.; Status:Active; Requested for:95Yej5895; Ordered; For:Obstructive sleep apnea; Ordered By:Pb Su; [...] Pb Su M.D.; Mar 20 2015 8:46PM BRAID FOLDER (Author) documented in this encounter Plan of Treatment Not on file documented as of this encounter Visit Diagnoses Not on filedocumented in this encounter Care Teams Spark Tester Relationship Specialty Start Date End Date Pb Su MD [address] [place] [address] PCP - General 04/26/16 Pb uS MD [address] [place], [place] [address] PCP - General 05/19/15 04/25/16 Pb Su MD [address] [place], [place] [address] PCP - General 12/07/14 05/18/15 documented as of this encounter
--- OUTSIDE RECORDS SUMMARY | 2024-11-14 22:22 | XMS_ITS | Encounter Summary ---
Author Organization [facility] Address [address] [place] [address]. [place], [place] [address] [place] [address] Care Team Providers Care Manager Special Events Name Role Phone Pb Su MD Primary Care Provider [phone] Pb Su MD Primary Care Provider +1- [phone] Encounter Details Date Type Department Care Team (Latest Contact Info) Description 09/28/2015 Abstract [facility] Medical Group Social History Tobacco [...] filedocumented in this encounter Care Teams Manager Special Events Relationship Specialty Start Date End Date Pb Su MD [address] [place] [address] PCP - General 04/26/16 Pb Su MD [address] [place] [address] PCP - General 05/19/15 04/25/16 documented as of this encounter
--- OUTSIDE RECORDS SUMMARY | 2024-11-14 22:22 | XMS_ITS | Encounter Summary ---
Author Organization [facility] Address [address] [place] [address]. [place], [place] [address] [place] [address] Care Team Providers Care Italian Tutor Name Role Phone Pb Su MD Primary Care Provider +1 [phone] Encounter Details Date Type Department Care Team (Latest Contact Info) Description 05/01/2016 Abstract [facility] Medical Group Social History Tobacco [...] more information on this test, go to http://education.[employer]/faq/ TotalTestosteroneLCMSMS Test Performed by [facility], [address] [place] [address] Haresh Duffy M.D., Ph.D., Director of Laboratories , CLIA [id number] TESTOSTERONE,FREE 64.5 Reference range: 35.0 to 155.0 Unit: pg/mL Test Performed by [employer], [address] [place] [address] Haresh Duffy M.D., Ph.D., Director of [employer] , [facility] [id number] documented in this encounter Plan of Treatment Not on file documented as of this encounter Visit Diagnoses Not on filedocumented in this encounter Care Teams Italian Tutor Relationship Specialty Start Date End Date Pb Su MD [address] [place] [address] PCP - General 04/26/16 documented as of this encounter
--- OUTSIDE RECORDS SUMMARY | 2024-11-14 22:22 | XMS_ITS | Encounter Summary ---
Author Organization [facility] Address [address] [place] [address]. [place] [address] [place] [address] Care Team Providers Care Oil Field Equipment Mechanic Name Role Phone Pb Su MD Primary Care Provider [phone] Pb Su MD Primary Care Provider [phone] Encounter Details Date Type Department Care Team (Latest Contact Info) Description 12/15/2015 Abstract [facility] Social History [...] by:Albert Ortega MA Dec 15 2015 9:49AM [employer] documented in this encounter Plan of Treatment Not on file documented as of this encounter Visit Diagnoses Not on filedocumented in this encounter Care Teams Oil Field Equipment Mechanic Relationship Specialty Start Date End Date Pb Su MD [address] [place] [address] PCP - General 04/26/16 Pb Su MD [address] [place] [address] PCP - General 05/19/15 04/25/16 documented as of this encounter
--- OUTSIDE RECORDS SUMMARY | 2024-11-14 22:22 | XMS_ITS | Encounter Summary ---
Author Organization [facility] Address [address] [place] [address]. [place], [place] [address] [place] [address] Care Team Providers Care Support Team Member Name Role Phone Pb Su MD Primary Care Provider +1 [phone] Encounter Details Date Type Department Care Team (Latest Contact Info) Description 10/22/2017 Abstract [facility] Medical Group Social [...] on filedocumented in this encounter Care Teams Support Team Member Relationship Specialty Start Date End Date Pb Su MD [address] [place] [address] PCP - General 04/26/16 documented as of this encounter
--- OUTSIDE RECORDS SUMMARY | 2024-11-14 22:22 | XMS_ITS | Clinical Summary ---
Author Organization [facility] Address [address] [place] [address]. [place], [place] [address] [place] [address] Care Team Providers Care Orthodontic Band Maker Name Role Phone Pb Su MD [...] Comments Blood Pressure 120/64 10/21/2016 10:12 AM REGULATOR TESTER Pulse 67 10/21/2016 10:12 AM REGULATOR TESTER Temperature - - Respiratory Rate - - [...] age to complete this topic Care Teams Orthodontic Band Maker Relationship Specialty Start Date End Date Pb Su MD [address] [place], [place] [id number] PCP - General 04/26/16
--- OUTSIDE RECORDS SUMMARY | 2024-11-14 22:22 | XMS_ITS | Encounter Summary ---
Author Organization [facility] Address [address] [place] [address]. [place], [place] [address] [place] [address] Care Team Providers Care Director Transportation Name Role Phone Pb Su MD Primary Care Provider +1 [phone] Encounter Details Date Type Department Care Team (Latest Contact Info) Description 01/15/2017 Abstract [facility] Medical Group Social History Tobacco [...] on filedocumented in this encounter Care Teams Director Transportation Relationship Specialty Start Date End Date Pb Su MD [address] [place] [address] PCP - General 04/26/16 documented as of this encounter
--- OUTSIDE RECORDS SUMMARY | 2024-11-14 22:22 | XMS_ITS | Encounter Summary ---
Author Organization [facility] Address [address] [place] [address]. [place], [place] [address] [place] [address] Care Team Providers Care Product Safety Technician Name Role Phone Pb Su MD Primary Care Provider [phone] Pb Su MD Primary Care Provider +1- [phone] Encounter Details Date Type Department Care Team (Late st Contact Info) Description 04/24/2016 Abstract [facility] [place] [address] [place] [address] Pb Su MD [address] [place], [place] [address] Social History Tobacco Use Types Packs/Day Years [...] 1. Claritin 10 MG Oral Tablet; Therapy: (Recorded:[id number]) to Recorded Dispense: 0 Days ; #: [...] Prof ( CMP ); Status:Active; Requested for:24Apr2016; Perform:[facility]; Due:[id number];Ordered; For:Atrial fibrillation, Fatigue, Hyperlipidemia; Ordered By:Pb Su; Atrial fibrillation, Obstructive sleep apnea 2. CBC WO Diff ( Hemogram ); Status:Active; Requested for:24Apr2016; Perform:[facility]; Due:[id number];Ordered; For:Atrial fibrillation, Obstructive sleep apnea; Ordered By:Pb Su; Erectile dysfunction 3. Lipid Profile; Status:Active; Requested for:24Apr2016; Perform:[facility]; Due:[id number];Ordered; For:Erectile dysfunction; Ordered By:Pb Su; 4. Prostate Specif Ag ( PSA ) Scrn; Status:Active; Requested for:24Apr2016; Perform:[facility]; Due:[id number];Ordered; For:Erectile dysfunction; Ordered By:Pb Su; 5. TSH W Reflex Free T4; Status:Active; Requested for:24Apr2016; Perform:[facility]; Due:24May2016;Ordered; For:Erectile dysfunction; Ordered By:Pb Su; 6. Vitamin D 25 - Hydroxy; Status:Active; Requested for:24Apr2016; Perform:[facility]; Due:24May2016;Ordered; For:Erectile dysfunction; Ordered By:Pb Su; Erectile dysfunction, Fatigue 7. Free / Total Testosterone; Status:Active; Requested for:24Apr2016; Perform:[facility]; Due:24May2016;Ordered; For:Erectile dysfunction, Fatigue; Ordered By:Pb [...] we can help. You may also call 7-135-LLOLNOW for free resources and assistance.; Status:Complete; Done: [...] Pb Su M.D.; Apr 24 2016 5:27PM INSTRUMENT AND CONTROL SERVICE PERSON (Author) documented in this encounter Plan of [...] LABORATORY Final Resul t Performing Organization Address City/[facility] Co de Phone Number [facility] TO EPIC CONVERSION * PROSTATE SPECIFIC ANTIGEN,TOTAL (04/26/2016 10:13 AM CDT) [facility] PSA 1.22 <4.0 ng/mL [facility] TO EPIC CONVERSION Comment: Result Comment: TEST WAS PERFORMED USING THE YADI METHOD. ??PSA VALUES OBTAINED WITH OTHER ASSAY METHODS OR KITS CANNOT BE USED INTERCHANGEABLY WITH RESULTS OBTAINED BY THE YADI METHOD. 04/26/2016 10:1 3 AM CDT 04/26/2016 10:13 AM CDT Narrative [facility] TO EPIC CONVERSION - 04/26/2016 3:22 PM CDT Result Communication: Call patient with results Pb Su MD LABORATORY Final Resul t [facility] TO EPIC CONVERSION * TESTOSTERONE, FREE & TOTAL (04/26/2016 10:13 AM CDT) Pathologist [facility] TESTOSTERONE TOTAL 442 [facility] TO EPIC CONVERSION Comment: Result Comment: Reference range: 250 to 1100 Unit: ng/dL For more information on this test, go to http://education.[employer]/faq/ TotalTestosteroneLCMSMS Test Performed by [facility], [address] [place] [address] Haresh Duffy M.D., Ph.D., Director of Laboratories , CLIA [id number] TESTOSTERONE FREE 64.5 ME [facility] TO EPIC CONVERSION Comment: Result Comment: Reference range: 35.0 to 155.0 Unit: pg/mL Test Performed by [facility], [address] [place], [place] Haresh Duffy M.D., Ph.D., Director of Laboratories , CLIA [id number] 04/26/2016 10:1 3 AM CDT 04/26/2016 10:13 AM CDT Narrative [facility] TO EPIC CONVERSION - 05/01/2016 6:21 PM CDT Result Communication: No patient communication needed at this time Pb Su MD LABORATORY Final Resul t [facility] TO EPIC CONVERSION * VITAMIN D, 25 OH (04/26/2016 10:13 AM CDT) Pathologist [facility] VITAMIN D 25 HYDROXY S/P/B 36 30 - 100 NG/ML [facility] TO EPIC CONVERSION Comment: Result Comment: ?? SUPPLEMENTING WITH VITAMIN D2 MAY RESULT IN FALSELY LOW RESULTS, CLINICAL CORRELATION NEEDED. ? INTERPRETATION ? DEFICIENT ??<20 ?INSUFFICIENT 20-30 ?SUFFICIENT 30-100 POTENTIAL INTOXICATION ??>100 ? TESTING PERFORMED AT [place] [id number] 04/26/2016 10:1 3 AM CDT 04/26/2016 10:13 [...] on filedocumented in this encounter Care Teams Product Safety Technician Relationship Specialty Start Date End Date Pb Su MD [address] [place] [address] PCP - General 04/26/16 Pb Su MD [address] [place] [address] PCP - General 05/19/15 04/25/16 documented as of this encounter
--- OUTSIDE RECORDS SUMMARY | 2024-11-14 22:22 | XMS_ITS | Encounter Summary ---
Author Organization [facility] Address [address] [place] [address]. [place] [address] [place] [address] Care Team Providers Care Legal Specialist Name Role Phone Pb Su MD Primary Care Provider +1- [phone] Pb Su MD Primary Care Provider Pb Su MD Primary Care Provider +1- [phone] Encounter Details Date Type Department Care Team (Latest Contact Info) Description 03/28/2015 Abstract [facility] Medical Group Social History Tobacco Use Types [...] on filedocumented in this encounter Care Teams Legal Specialist Relationship Specialty Start Date End Date Pb Su MD [address] [place], [place] [phone] PCP - General 04/26/16 bP Su MD [address] [place], [place] [phone] PCP - General 05/19/15 04/25/16 bP Su MD [address] [place] [address] PCP - General 12/07/14 05/18/15 documented as of this encounter
--- OUTSIDE RECORDS SUMMARY | 2024-11-14 22:22 | XMS_ITS | Encounter Summary ---
Author Organization [facility] Address [address] [place] [address]. [place], [place] [address] [place] [address] Care Team Providers Care Gis Administrator Name Role Phone Pb Su MD Primary Care Provider +1 [phone] Encounter Details Date Type Department Care Team (Latest Contact Info) Description 06/06/2016 Abstract [facility] Medical Group Social History Tobacco Use [...] on filedocumented in this encounter Care Teams Gis Administrator Relationship Specialty Start Date End Date Pb Su MD [address] [place] [address] PCP - General 04/26/16 documented as of this encounter
--- OUTSIDE RECORDS SUMMARY | 2024-11-14 22:22 | XMS_ITS | Encounter Summary ---
Author Organization [facility] Address [address] [place] [address]. [place] [address] [place] [address] Care Team Providers Care Platen Drier Operator Name Role Phone Pb Su MD Primary Care Provider +1- [phone] Pb Su MD Primary Care Provider Pb Su MD Primary Care Provider +1- [phone] Encounter Details Date Type Department Care Team (Latest Contact Info) Description 01/05/2015 Abstract [facility] Medical Group Social [...] on filedocumented in this encounter Care Teams Platen Drier Operator Relationship Specialty Start Date End Date Pb Su MD [address] [place], [place] [id number] PCP - General 04/26/16 Pb Su MD [address] [place], [place] [phone] PCP - General 05/19/15 04/25/16 Pb Su MD [address] [place] [address] PCP - General 12/07/14 05/18/15 documented as of this encounter
--- OUTSIDE RECORDS SUMMARY | 2024-11-14 22:22 | XMS_ITS | Encounter Summary ---
Author Organization [facility] Address [address] [place] [address]. [place], [place] [address] [place] [address] Care Team Providers Care Email Engineer Name Role Phone Pb Su MD Primary Care Provider [phone] Pb Su MD Primary Care Provider [phone] Encounter Details Date Type Department Care Team (Latest Contact Info) Description 05/23/2015 Abstract [facility] Medical Group Aleshia Guaman MD [address] [place] [address] Social History Tobacco Use Types Packs/Day Years Used Date Smoking Tobacco: Never Assessed Sex and Gender Information Value Date Recorded Sex Assigned at Not on file Legal Sex Male 7:22 PM CDT Gender Identity Not on file Sexual Orientation Not on file documented as of this encounter Procedure Notes * Aleshia Guaman MD - 05/20/2015 10:58 AM CDT [place] [address] Patient: AVA CEDILLO [facility] Rec#: [id number] Birthdate: 1965 Admit/Svce Date: 05/19/2015 Disch Date: Attending Md: PB SU MD CHART DOCUMENT Spirometry: Based upon FEV1 to FVC ratio, there is no significant obstruction. Lung Volumes: Lung volumes are within normal limits. No restriction. Nonspecific reduction and residual volume. DLCO: Is normal. Electronically Signed By: ALESHIA GUAMAN M.D. 05/30/2015 04:00 P ALESHIA GUAMAN M.D. A #[id number] A/coirne cc: PB SU M.D. documented in this encounter Plan of Treatment Not on file documented as of this encounter Visit Diagnoses Not on filedocumented in this encounter Care Teams Email Engineer Relationship Specialty Start Date End Date Pb Su MD [address] '[place] [address] PCP - General 04/26/16 Pb Su MD [address] [place] [address] PCP - General 05/19/15 04/25/16 documented as of this encounter
--- OUTSIDE RECORDS SUMMARY | 2024-11-14 22:22 | XMS_ITS | Encounter Summary ---
Author Organization [facility] Address [address] [place] [address]. [place], [place] [address] [place] [address] Care Team Providers Care Gallery Assistant Name Role Phone Pb Su MD Primary Care Provider +1 [phone] Encounter Details Date Type Department Care Team (Latest Contact Info) Description 01/14/2018 Abstract [facility] Medical Group [...] on filedocumented in this encounter Care Teams Gallery Assistant Relationship Specialty Start Date End Date Pb Su MD [address] [place] [address] PCP - General 04/26/16 documented as of this encounter
--- OUTSIDE RECORDS SUMMARY | 2024-11-14 22:22 | XMS_ITS | Encounter Summary ---
Author Organization [facility] Address [address] [place] [address]. [place] [address] [place] [address] Care Team Providers Care Fermentologist Name Role Phone Pb Su MD Primary Care Provider +1 [phone] Encounter Details Date Type Department Care Team (Late st Contact Info) Description 04/26/2016 Abstract [facility] [address] [place], [place] [id number] Pb Su MD [address] [place], [place] [address] Social History Tobacco Use Types Packs/Day Years [...] - 100 NG/ML 04/29/2016 8:45 PM CDT [facility] Comment: SUPPLEMENTING WITH VITAMIN D2 MAY RESULT IN FALSELY LOW RESULTS, CLINICAL CORRELATION NEEDED. ? INTERPRETATION ? DEFICIENT ??<20 ?INSUFFICIENT 20-30 ?SUFFICIENT 30-100 POTENTIAL INTOXICATION ??>100 TESTING [place] [address] 04/26/2016 10:1 3 AM CDT 04/26/2016 11:40 AM CDT us Generic Conversion Md [facility] Final R [facility] Performing Organization Address [facility] de Phone Number [facility] [address] [place] [address], [place] [phone] * TSH W/REFLEX (SNS) (04/26/2016 10:13 AM CDT) TSH 1.72 0.27 - 4.20 mIU/mL 04/26/2016 3:22 PM CDT [facility] Comment:FREE T4 NOT INDICATE D SERUM OR PLASMA SPECIMEN / Unknown 04/26/2016 10:13 AM CDT 04/26/2016 11:40 AM CDT us Generic Conversion Md [facility] Final R esult Performing Organization Address City/[facility]/ZIP Co de Phone Number [facility] [address] [place] [address], [place] [phone] * TESTOSTERONE, FREE & TOTAL (04/26/2016 10:13 AM CDT) TESTOSTERONE TOTAL 442 250 - 1,100 ng/dL 05/01/2016 10:32 AM CDT [facility] Comment: For more information on this test, go to http://education.[employer])/faq/ TotalTestosteroneLCMSMS Test Performed by [facility], [address] [place] [address] Haresh Duffy M.D., Ph.D., Director of Laboratories , CLIA [id number] TESTOSTERONE FREE 64.5 35.0 - 155.0 pg/mL 05/01/2016 6:21 PM CDT [facility] Comment: Test Performed by [facility] [facility], [address] [place] [address] Haresh Duffy M.D., Ph.D., Director of Laboratories , CLIA [id number] SERUM SPECIMEN / Unknown 04/26/2016 10:13 AM CDT 04/26/2016 11:40 AM CDT us Generic Conversion Md [facility] Final R esult [facility] [place] [address], * PROSTATE SPECIFIC ANTIGEN,SCREENING (04/26/2016 10:13 AM CDT) PSA 1.22 <4.0 ng/mL 04/26/2016 3:22 PM CDT [facility] Comment: TEST WAS PERFORMED USING THE YADI METHOD. ??PSA VALUES OBTAINED WITH OTHER ASSAY METHODS OR KITS CANNOT BE USED INTERCHANGEABLY WITH RESULTS OBTAINED BY THE YADI METHOD. SERUM SPECIMEN / Unknown 04/26/2016 10:13 AM CDT 04/26/2016 11:40 AM CDT us Generic Conversion Md [facility] Final R esult [facility] [address] [place] [address], * (ABNORMAL) LIPID PANEL (04/26/2016 10:13 AM CDT) LIPID INTERPRETATION 04/26/2016 3:10 PM CDT [facility] Comment: NIH CONCENSUS REPORT RECOMMENDATIONS: ?ADULT [...] 0.0 - 4.5 04/26/2016 3:10 PM CDT [facility] CHOLESTEROL 223(H) <200 mg/dL 04/26/2016 3:10 PM CDT [facility] Comment: NOTE: Acetaminophen, N Acetyl p benzoquinone imine (NAPQI), N acetylcysteine (NAC), Metamizole, 4 Aminoantipyrine (4 AAP) and 4 Methylamino antipyrine (4 MAP) at high concentrations can cause falsely low results on Lactate, Uric Acid, Cholesterol, Triglyceride, HDL, and Direct LDL. HDL 39(L) >59 mg/dL 04/26/2016 3:10 PM CDT [facility] DIRECT LDL 151(H) <100 mg/dL 04/26/2016 3:10 PM T [facility] NON HDL CHOLESTEROL 184(H) <130 mg/dL 04/26/2016 3:10 PM T [facility] Comment: NOTE: WHEN THE TRIGLYCERIDES ARE >200 mg/dL, NON HDL C IS A SECONDARY TARGET OF THERAPY, WITH A GOAL 30 mg/dL HIGHER THAN THE IDENTIFIED LDL C GOAL. TRIGLYCERIDES 167(H) <150 mg/dL 04/26/2016 3:10 PM CDT [facility] VLDL CALCULATION 33 5 - 55 mg/dL 04/26/2016 3:10 PM T [facility] 04/26/2016 10:1 3 AM CDT 04/26/2016 11:40 AM CDT us Generic Conversion Md [facility] Final R esult [facility] [address] [place] [address], [place] [phone] * (ABNORMAL) CBC, AUTO, NO DIFF (04/26/2016 10:13 AM CDT) WBC 4.2(L) 4.8 - 10.8 X10'3/uL 04/26/2016 2:23 PM CDT [facility] RBC 4.97 4.70 - 6.10 X10'6/uL 04/26/2016 2:23 PM CDT [facility] HGB 14.7 14.0 - 18.0 g/dL 04/26/2016 2:23 PM CDT [facility] HCT 41.6(L) 43.0 - 54.0 % 04/26/2016 2:23 PM CDT [facility] MCV 83.7 80.0 - 94.0 fL 04/26/2016 2:23 PM CDT [facility] MCH 29.6 27.0 - 31.0 pg 04/26/2016 2:23 PM CDT [facility] MCHC 35.3 32.0 - 36.0 g/dL 04/26/2016 2:23 PM CDT [facility] RDW 12.2 11.5 - 14.5 % 04/26/2016 2:23 PM CDT [facility] PLT 276 130 - 400 X10'3/uL 04/26/2016 2:23 PM CDT [facility] MPV 11.3 9.3 - 12.2 fL 04/26/2016 2:23 PM CDT [facility] 04/26/2016 10:1 3 AM CDT 04/26/2016 11:40 AM CDT us Generic Conversion Md [facility] Final R esult [facility] [address] [place] [address], * COMPREHENSIVE METABOLIC PANEL (04/26/2016 10:13 AM CDT) [facility] Signature GLUCOSE 91 70 - 99 mg/dL 04/26/2016 3:10 PM CDT [facility] BUN 14 8 - 23 mg/dL 04/26/2016 3:10 PM CDT [facility] CREATININE S/P/B 1.06 0.70 - 1.20 mg/dL 04/26/2016 3:10 PM CDT [facility] SODIUM S/P/B 139 136 - 145 mmol/L 04/26/2016 3:10 PM CDT [facility] POTASSIUM S/P/B 4.3 3.5 - 5.1 mmol/L 04/26/2016 3:10 PM CDT [facility] CHLORIDE S/P/B 102 98 - 107 mmol/L 04/26/2016 3:10 PM CDT [facility] CO2 25 22 - 29 mmol/L 04/26/2016 3:10 PM CDT [facility] BILIRUBIN TOTAL S/P/B 0.6 0.2 - 1.2 mg/dL 04/26/2016 3:10 PM CDT [facility] CALCIUM S/P/B 9.5 8.6 - 10.2 mg/dL 04/26/2016 3:10 PM CDT [facility] ALKALINE PHOSPHATASE S/P/B 67 40 - 129 IU/L 04/26/2016 3:10 PM CDT [facility] AST 27 0 - 40 IU/L 04/26/2016 3:10 PM CDT [facility] TOTAL PROTEIN S/P/B 6.9 6.4 - 8.3 g/dL 04/26/2016 3:10 PM CDT [facility] ALBUMIN S/P/B 4.5 3.5 - 5.2 g/dL 04/26/2016 3:10 PM CDT [facility] ALT 22 0 - 41 IU/L 04/26/2016 3:10 PM CDT [facility] GLOBULIN 2.4 2.3 - 3.6 g/dL 04/26/2016 3:10 PM CDT [facility] A/G RATIO 1.9 1.0 - 2.0 04/26/2016 3:10 PM CDT [facility] ANION GAP 16 8 - 20 04/26/2016 3:10 PM CDT [facility] EGFR NON-AFR. AMER. >60 >60 mL/min/1.7 [facility] 04/26/2016 3:10 PM CDT [facility] EGFR AFR. AMER. >60 >60 mL/min/1.7 [facility] 04/26/2016 3:10 PM CDT [facility] Comment: NOTE: eGFR is not calculated for patients <18 years of age. This is an estimated GFR (CKD EPI) and should not be used for calculating drug doses. 04/26/2016 10:1 3 AM CDT 04/26/2016 11:40 AM CDT us Generic Conversion Md [facility] Final R esult [facility] [address] [place] [address], documented in this encounter Visit Diagnoses Diagnosis Atrial fibrillation (CMS/HCC HHS/HCC) Atrial fibrillation documented in this encounter Care Teams Fermentologist Relationship Specialty Start Date End Date Pb Su MD [address] [place] [phone] (Work) PCP - General 04/26/16 documented as of this encounter
--- OUTSIDE RECORDS SUMMARY | 2024-11-14 22:22 | XMS_ITS | Encounter Summary ---
Author Organization [facility] Address [address] [place] [address]. [place], [place] [address] [place] [address] Care Team Providers Care Employment Educational Coord Name Role Phone Pb Su MD Primary Care Provider [phone] Encounter Details Date Type Department Care Team (Latest Contact Info) Description 09/29/2018 Scan [facility] , [place], Social History [...] on filedocumented in this encounter Care Teams Employment Educational Coord Relationship Specialty Start Date End Date Pb Su MD [address] [place] [address] PCP - General 04/26/16 documented as of this encounter
--- OUTSIDE RECORDS SUMMARY | 2024-11-14 22:22 | XMS_ITS | Encounter Summary ---
Author Organization [facility] Address [address] [place] [address]. [place] [address] [place] [address] Care Team Providers Care Resident Medical Officer Name Role Phone Pb Su MD Primary Care Provider +1- [phone] Pb Su MD Primary Care Provider Pb Su MD Primary Care Provider +1- [phone] Encounter Details Date Type Department Care Team (Latest Contact Info) Description 01/25/2015 Abstract [facility] Medical Group Social History Tobacco Use [...] on filedocumented in this encounter Care Teams Resident Medical Officer Relationship Specialty Start Date End Date Pb Su MD [address] [place], [place] [phone] PCP - General 04/26/16 Pb Su MD [address] [place], [place] [phone] PCP - General 05/19/15 04/25/16 Pb Su MD [address] [place] [address] PCP - General 12/07/14 05/18/15 documented as of this encounter
--- OUTSIDE RECORDS SUMMARY | 2024-11-14 22:22 | XMS_ITS | Encounter Summary ---
Author Organization [facility] Address [address] [place] [address]. [place] [address] [place] [address] Care Team Providers Care Copy Manager Name Role Phone Pb Su MD Primary Care Provider +1- [phone] Pb Su MD Primary Care Provider Pb Su MD Primary Care Provider +1- [phone] Encounter Details Date Type Department Care Team (Latest Contact Info) Description 03/30/2015 Abstract [facility] Medical Group Social [...] on filedocumented in this encounter Care Teams Copy Manager Relationship Specialty Start Date End Date Pb Su MD [address] [place], [place] [phone] PCP - General 04/26/16 Pb Su MD [address] [place], [place] [phone] PCP - General 05/19/15 04/25/16 Pb Su MD [address] [place] [address] PCP - General 12/07/14 05/18/15 documented as of this encounter
--- OUTSIDE RECORDS SUMMARY | 2024-11-14 22:22 | XMS_ITS | Encounter Summary ---
Author Organization [facility] Address [address] [place] [address]. [place], [place] [address] [place] [address] Care Team Providers Care Supervising Film Or Videotape Editor Name Role Phone Pb Su MD Primary Care Provider [phone] Encounter Details Date Type Department Care Team (Late st Contact Info) Description 04/26/2016 Abstract [facility] Medical Group Family Medicine - [place] [address], [address] [place] [id number] Pb Su MD [address] [place] [address] Social History Tobacco Use Types Packs/Day Years [...] Visit Annual physical Reason For Visit: Health Baton Twirler Complaint Patient here for annual physical exam. 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 The patient has never smoked cigarettes and [...] 1. Claritin 10 MG Oral Tablet; Therapy: (Recorded:95Qwp6842) to Recorded Dispense: 0 Days ; #: [...] Done: 26Apr2016 11:46AM Ordered; For:Health Maintenance; Ordered By:bP Su; ?? There are ways to decrease [...] He was advised osmany evaluated by an dentist private practice and a dentist. Advice and education were [...] Pb Su M.D.; Apr 26 2016 11:50AM STRUCTURAL DRAFTSMAN (Author) documented in this encounter Plan of Treatment Not on file documented as of this encounter Visit Diagnoses Not on filedocumented in this encounter Care Teams Supervising Film Or Videotape Editor Relationship Specialty Start Date End Date Pb Su MD [address] [place] [address] PCP - General 04/26/16 documented as of this encounter
--- OUTSIDE RECORDS SUMMARY | 2024-11-14 22:22 | XMS_ITS | Encounter Summary ---
Author Organization [facility] Address [address] [place] [address]. [place], [place] [address] [place] [address] Care Team Providers Care Tow Truck Dispatcher Name Role Phone Pb Su MD Primary Care Provider [phone] Encounter Details Date Type Department Care Team (Latest Contact Info) Description 04/07/2017 Abstract [facility] Medical Group Social History Tobacco Use Types [...] on filedocumented in this encounter Care Teams Tow Truck Dispatcher Relationship Specialty Start Date End Date Pb Su MD [address] [place] [address] PCP - General 04/26/16 documented as of this encounter
--- OUTSIDE RECORDS SUMMARY | 2024-11-14 22:23 | XMS_ITS | Encounter Summary ---
Author Organization [facility] Address [address] [place] [address]. [place], [place] [address] [place] [address] Care Team Providers Care Ribbon Blocker Name Role Phone Pb Su MD Primary [...] (Late st Contact Info) Description 01/20/2014 Abstract [facility] Medical Group Family Medicine - [place] [address] [place] [address] Pb Su MD [address] [place] [address] Social History Tobacco Use Types Packs/Day Years Used Date Smoking Tobacco: Never Assessed Sex and Gender Information Value Date Recorded Sex Assigned at Not on file Legal Sex Male 7:22 PM CDT Gender Identity Not on file Sexual Orientation Not on file documented as of this encounter Last Filed Vital Signs Vital Sign Reading Time Taken Comments Blood Pressure 110/64 01/20/2014 8:00 AM MANUFACTURING DIRECTOR Pulse 68 01/20/2014 8:00 AM MANUFACTURING DIRECTOR Temperature - - Respiratory Rate - - Oxygen Saturation - - Inhaled Oxygen Concentration - - Weight 100.2 kg (221 lb) 01/20/2014 8:00 AM MANUFACTURING DIRECTOR Height 182.9 cm (6') 01/20/2014 8:00 AM MANUFACTURING DIRECTOR Body Mass Index 29.97 01/20/2014 8:00 AM MANUFACTURING DIRECTOR documented in this encounter Progress Notes * [...] 1 TABLET BY MOUTH AT BEDTIME; Therapy: 91Znq5295 to (Evaluate:26Qwi3174); Last Rx:25Ckg1282 Ordered 2. Claritin 10 MG Oral Tablet; Therapy: (Recorded:24Psv7095) to Recorded 3. Cyclobenzaprine HCl - 10 MG Oral Tablet; TAKE 1 TABLET 3 TIMES DAILY NEEDED; Therapy: 66Wqk5907 to (Evaluate:26Feb2014) Requested for: 77Mhq6166; Last Rx:[id number] Ordered 4. TraMADol HCl - 50 MG Oral Tablet; TAKE 1 TABLET 3 TIMES DAILY; Therapy: 16Kfa9565 to (Evaluate:06Feb2014); Last Rx:[id number] Ordered Allergies 1. Acetaminophen-Codeine #3 TABS Vitals Recorded by : Denisse Ceja at 73Eoo7018 08:00AM Temperature 97.7 F, Oral Heart Rate [...] the first 2 days. Status: Complete Done: 58Kyg3380 03:30PM Ordered; For: Right knee pain; Ordered By: Pb Su 2. Apply cold compresses 4 times a day for 20 minutes to help relieve pain or itching. Status: Complete Done: 95Koj3105 03:30PM Ordered; For: Right knee pain; Ordered By: Pb Su 3. Apply ice to your knee for 30 minutes after exercise to help reduce swelling and pain. Status: Complete Done: 99Ord6203 03:30PM Ordered; For: Right knee pain; Ordered By: Pb Su 4. Call if: Swelling of the ankle is not better in 2 days. Status: Complete Done: 01Kqk0766 03:30PM Ordered; For: Right knee pain; Ordered By: Pb Su 5. Call if: The pain is not better in 2 days. Status: Complete Done: 70Ilk5249 03:30PM Ordered; For: Right knee pain; Ordered By: Pb Su 6. Call if: The pain seems worse. Status: Complete Done: 80Vaa5185 03:30PM Ordered; For: Right knee pain; Ordered By: Pb Su 7. Call if: The symptoms are not better in 7 days. Status: Complete Done: 39Gwn0882 03:30PM Ordered; For: Right knee pain; Ordered By: Pb Su 8. Call if: The symptoms come back after a period of time of being normal. Status: Complete Done: 49Mjc8998 03:30PM Ordered; For: Right knee pain; Ordered By: Pb Su 9. Call if: Your ankle swelling is getting worse. Status: Complete Done: 76Swy5069 03:30PM Ordered; For: Right knee pain; Ordered By: Pb Su 10. Call if: Your knee continues to feel unsteady or gives way. Status: Complete Done: 76Caa1637 03:30PM Ordered; For: Right knee pain; Ordered By: Pb Su 11. Call if: Your knee locks so you cannot bend or straighten it. Status: Complete Done: 62Stk6497 03:30PM Ordered; For: Right knee pain; Ordered By: Pb Su Orthopedic Surgery Referral Outpatient 48 yo male: chronic and progressive knee pain/stiffness and large soft tissue swwelling over patella.. Request [facility] orthopedic consult with Dr Mak for eval/treatment! Request Tricae Authorization for [facility] ongoing care with Dr Singh Mak Status: Need Info rmation - Financial Authorization Requested for: [id number] Ordered; For: Knee pain, right; Ordered By: Pb Su Performed: Due: 03Feb2014 Discussion/Summary Summary: 48 yo male with chronic right knee pain: noted to have soft tissue swelling/ fibrocystic chsnges.Differential diagnosis to include fibrocystic soft tissue swelling. Referred to [facility] Orthopedic Surgery Signatures Electronically signed by : bP Su M.D.; Jan 20 2014 3:32PM MANUFACTURING DIRECTOR (Author) FACTURING DIRECTOR documented in this encounter Plan of Treatment Not on file documented as of this encounter Visit Diagnoses Not on filedocumented in this encounter Care Teams Ribbon Blocker Relationship Specialty Start Date End Date Pb Su MD [address] [place], [place] [address] PCP - General 04/26/16 Pb Su MD [address] [place], [place] [id number] PCP - General 05/19/15 04/25/16 Pb Su MD [address] [place], [place] [id number] PCP - General 12/07/14 05/18/15 Pb Su MD [address] [place] [address] PCP - General 12/05/14 12/06/14 Pb Su MD [address] [place], [place] [id number] PCP - General 03/23/14 12/04/14 Pb Su MD [address] [place], [place] [address] PCP - General 03/21/14 03/22/14 Pb Su MD [address] [place] [address] PCP - General 03/16/14 03/20/14 Pb Su MD [address] [place] [address] PCP - General 03/14/14 03/15/14 Pb Su MD [address] [place], [place] [address] PCP - General 03/09/14 03/13/14 Pb Su MD [address] [place], [place] [address] PCP - General 03/02/14 03/08/14 Pb Su MD [address] [place], [place] [address] PCP - General 02/28/14 03/01/14 Pb Su MD [address] [place], [place] [address] PCP - General 02/25/14 02/27/14 Pb Su MD [address] [place] [address] PCP - General 02/23/14 02/24/14 Pb uS MD [address] [place] [address] PCP - General 02/17/14 02/22/14 Pb Su MD [address] [place] [address] PCP - General 11/02/13 02/16/14 documented as of this encounter
--- OUTSIDE RECORDS SUMMARY | 2024-11-14 22:23 | XMS_ITS | Encounter Summary ---
Author Organization [facility] Address [address] [place] [address]. [place] [address] [place] [address] Care Team Providers Care Household Appliances Salesperson Name Role Phone Pb Su MD Primary Care Provider [phone] Pb Su MD Primary Care Provider Pb Su MD Primary Care Provider Encounter Details Date Type Department Care Team (Late st Contact Info) Description 12/26/2014 Abstract [facility] Medical Group Family Medicine - [place] [address] [place] [address] Pb Su MD [address] [place] [address] Social History Tobacco Use Types Packs/Day Years Used Date Smoking Tobacco: Never Assessed Sex and Gender Information Value Date Recorded Sex Assigned at Not on file Legal Sex Male 7:22 PM CDT Gender Identity Not on file Sexual Orientation Not on file documented as of this encounter Last Filed Vital Signs Vital Sign Reading Time Taken Comments Blood Pressure 120/84 12/26/2014 7:43 AM PLANER OFFBEARER Pulse 64 12/26/2014 7:43 AM PLANER OFFBEARER Temperature - - Respiratory Rate - - Oxygen Saturation - - Inhaled Oxygen Concentration - - Weight 99.3 kg (219 lb) 12/26/2014 7:43 AM PLANER OFFBEARER Height 182.9 cm (6') 12/26/2014 7:43 AM PLANER OFFBEARER Body Mass Index 29.7 12/26/2014 7:43 AM PLANER OFFBEARER documented in this encounter Progress Notes * [...] 1. Claritin 10 MG Oral Tablet; Therapy: (Recorded:05Lde3982) to Recorded 2. PredniSONE 20 MG Oral Tablet; TAKE 2 TABLETS DAILY; Therapy: 05Dec2014 to (Evaluate:15Dec2014) Requested for: 05Dec2014; Last Rx:05Dec2014 Ordered Allergies 1. Acetaminophen-Codeine #3 TABS Vitals Recorded by : Daphne Harvey at 13Mak6896 07:43AM Temperature 98.4 F Heart Rate 64 [...] Transmission to [facility]; Last Updated By: [employer]; 12/26/2014 7:54:55 AM 2. Compr Metabolic Prof ( CMP ) Status: Active Requested for: 26Dec2014 Perform: [facility] Due: 25Jan2015; Ordered; For: Hyperlipidemia; Ordered By: Pb Su 3. Creatine Kinase ( CK ) ( CPK ) Status: Active Requested for: 26Dec2014 Perform: [facility] Due: 25Jan2015; Ordered; For: Hyperlipidemia; Ordered By: Pb Su 4. Lipid Profile Status: Active Requested for: 26Dec2014 Perform: [facility] Due: 25Jan2015; Ordered; For: Hyperlipidemia; Ordered By: Pb Su Obstructive sleep apnea 5. Avoid alcoholic beverages. Status: Complete Done: 27Dec2014 11:56AM Ordered; For: Obstructive sleep apnea; Ordered By: Pb Su 6. Avoid medications and/or triggers that caused your symptoms/problems. Status: Complete Done: 87Zva5400 11:56AM Ordered; For: Obstructive sleep apnea; Ordered [...] of exercise a week. Status: Complete Done: 53Cmd5912 11:56AM Ordered; For: Obstructive sleep apnea; Ordered [...] help you lose weight. Status: Complete Done: 42Mmd9704 11:56AM Ordered; For: Obstructive sleep apnea; Ordered By: Pb Su 13. Some eating tips that can help you lose weight. Status: Complete Done: 02Nsv6496 11:56AM Ordered; For: Obstructive sleep apnea; Ordered By: Pb Su 14. We encourage all of our patients to exercise regularly. 30 minutes of exercise or physical activity five or more days a week is recommended for children and adults. Status: Complete Done: 75Jyl3505 11:56AM Ordered; For: Obstructive sleep apnea; Ordered By: Pb Su 15. We have prescribed nasal CPAP. Status: Complete Done: 56Spt3549 11:56AM Ordered; For: Obstructive sleep apnea; Ordered By: Pb Su 16. We recommend that you bring your body mass index down to 26. Status: Complete Done: 62Atu1968 11:56AM Ordered; For: Obstructive sleep apnea; Ordered [...] you achieve your goals. Status: Complete Done: 27Lnp4128 11:56AM Ordered; For: Obstructive sleep apnea; Ordered By: Pb Su 18. You need to stop smoking. Though it is not easy, more than half of all adult smokers have quit. We encourage you to write down all the reasons you should quit smoking and set a quit date for yourself. Ask us how we can help. You may also call 9-813-TKBWNOW for free resources and assistance. Status: Complete Done: 92Nqq8484 11:56AM Ordered; For: Obstructive sleep apnea; Ordered By: Pb Su 19. Call if: The symptoms are not better in 7 days. Status: Complete Done: 58Hez1271 11:56AM Ordered; For: Obstructive sleep apnea; Ordered By: Pb Su 20. Call if: The symptoms come back after a period of time of being normal. Status: Complete Done: 24Feu2204 11:56AM Ordered; For: Obstructive sleep apnea; Ordered By: Pb Su 21. Call if: You feel unusually tired. Status: Complete Done: 11Ici7508 11:56AM Ordered; For: Obstructive sleep apnea; Ordered By: Pb Su 22. Call if: You feel your heart is beating too fast. Status: Complete Done: 04Axy0672 11:56AM Ordered; For: Obstructive sleep apnea; Ordered By: Pb Su 23. Call if: You get a headache that does not go away with your usual treatment. Status: Complete Done: 73Bti5267 11:56AM Ordered; For: Obstructive sleep apnea; Ordered By: Pb Su 24. Call if: You have a dry, hacking cough. Status: Complete Done: 94Wuy3342 11:56AM Ordered; For: Obstructive sleep apnea; Ordered By: Pb Su 25. Call if: You have feelings of extreme sadness and feelings of hopelessness. Status: Complete Done: 61Iab0338 11:56AM Ordered; For: Obstructive sleep apnea; Ordered By: Pb Su 26. Call if: You have frequent headaches. Status: Complete Done: 22Lvg5812 11:56AM Ordered; For: Obstructive sleep apnea; Ordered By: Pb Su 27. Call if: You have swelling and puffiness of your lower leg or ankles. Status: Complete Done: 55Pqb3297 11:56AM Ordered; For: Obstructive sleep apnea; Ordered By: Pb Su 28. Call if: Your nose is stuffy or feels plugged. Status: Complete Done: 23Asp1155 11:56AM Ordered; For: Obstructive sleep apnea; Ordered By: Pb Su 29. Call 611 if: You experience a new kind of chest pain (angina) or pressure. Status: Complete Done: 14Tye8988 11:56AM Ordered; For: Obstructive sleep apnea; Ordered By: Pb Su 30. Seek Immediate Medical Attention if: You are thinking about harming yourself or someone else. Status: Complete Done: 73Xww3609 11:56AM Ordered; For: Obstructive sleep apnea; Ordered By: Pb Su 31. Seek Immediate Medical Attention if: You faint or lose consciousness. Status: Complete Done: 21Rys3457 11:56AM Ordered; For: Obstructive sleep apnea; Ordered By: Pb Su 32. Seek Immediate Medical Attention if: You feel short of breath even while resting. Status: Complete Done: 55Hpg5874 11:56AM Ordered; For: Obstructive sleep apnea; Ordered By: Pb Su 33. Seek Immediate Medical Attention if: Your depression is worse. Status: Complete Done: 15Qkw0748 11:56AM Ordered; For: Obstructive sleep apnea; Ordered By: Pb Su 34. Seek Immediate Medical Attention if: Your shortness of breath is getting worse. Status: Complete Done: 79Zer5083 11:56AM Ordered; For: Obstructive sleep apnea; Ordered By: Pb Su Obstructive sleep apnea, Obstructive sleep apnea of adult 35. Sleep Study Referral Outpatient 49 yo male with history DEBBIE/ recent fatigue: -request Authorization for Sleep Specialist Status: Need Information - Financial Authorization Requested for: [id number] Ordered; For: Obstructive sleep apnea, Obstructive sleep apnea of adult; Ordered By: Pb Su Performed: Due: 86Gdp8783 Discussion/Summary Summary: 49 yo male with recent fatigue, malaise, complex medical issues and co- morbitities: osteoarthritis, fatigue, HLP, Atrial Fibrillation[sinus],DEBBIE. Performed detailed history,systems review, examination, developed problem list, evaluation/treatment plan! See Care Guide. Sleep Consult placed thru . Lengthy appointment: evaluation, assessment, discussion: exceeding 25 minutes. Signatures Electronically signed by : Pb Su M.D.; Dec 27 2014 11:58AM PLANER OFFBEARER (Author) documented in this encounter Plan of Treatment Not on file documented as of this encounter Visit Diagnoses Not on filedocumented in this encounter Care Teams Household Appliances Salesperson Relationship Specialty Start Date End Date Pb Su MD [address] [place] [address] PCP - General 04/26/16 Pb Su MD [address] [place] [address] PCP - General 05/19/15 04/25/16 Pb Su MD [address] [place] [address] PCP - General 12/07/14 05/18/15 documented as of this encounter
--- OUTSIDE RECORDS SUMMARY | 2024-11-14 22:23 | XMS_ITS | Encounter Summary ---
Author Organization [facility] Address [address] [place] [address]. [place], [place] [address] [place] [address] Care Team Providers Care Training Facilitator Name Role Phone Pb Su MD Primary Care Provider Pb Su MD Primary Care Provider Pb Su MD Primary Care Provider Pb Su MD Primary Care Provider Pb Su MD Primary Care Provider Encounter Details Date Type Department Care Team (Late st Contact Info) Description 05/05/2014 Abstract [facility] Medical Group Multispecialty Care - [address], [address] [place] [address] Fernie Erickson MD Social History Tobacco Use [...] CDT Chief Complaint DR. 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 He is being referred [...] 1 TABLET BY MOUTH AT BEDTIME; Therapy: 90Xwq1236 to (Evaluate:24Jun2014); Last Rx:97Azv7237 Ordered 2. Claritin 10 MG Oral Tablet; Therapy: (Recorded:56Lwm4034) to Recorded 3. Cyclobenzaprine HCl - 10 MG Oral Tablet; TAKE 1 TABLET 3 TIMES DAILY NEEDED; Therapy: 49Jyk6506 to (Evaluate:26Feb2014) Requested for: 29Hjm5264; Last Rx:75Hsv4237 Ordered 4. TraMADol HCl - 50 MG Oral Tablet; TAKE 1 TABLET 3 TIMES DAILY; Therapy: 91Sqs9367 to (Evaluate:06Feb2014); Last Rx:22Qoc1617 Ordered Allergies 1. Acetaminophen-Codeine #3 TABS Vitals Recorded by : Abena Leal at 05May2014 03:33PM Heart Rate 80 Systolic 140 Diastolic 80 Height 6 ft Weight 215 lb BMI Calculated 29.16 BSA Calculated 2.2 Physical Exam Neurologic examination Higher order function alert and oriented x3, [place] Coma Scale 15, speech fluent Cranial nerves [...] Abena Leal, ; May 05 2014 4:05PM MAORI PHYSIOTHERAPIST (Co-author) Electronically signed by : Fernie Erickson M.D.; May 05 2014 4:38PM MAORI PHYSIOTHERAPIST (Author) documented in this encounter Plan of Treatment Not on file documented as of this encounter Visit Diagnoses Not on filedocumented in this encounter Care Teams Training Facilitator Relationship Specialty Start Date End Date Pb Su MD [address] [place] [address] PCP - General 04/26/16 Pb Su MD [address] [place] [address] PCP - General 05/19/15 04/25/16 Pb Su MD [address] [place], [place] [address] PCP - General 12/07/14 05/18/15 Pb Su MD [address] [place], [place] [address] PCP - General 12/05/14 12/06/14 Pb Su MD [address] [place], [place] [address] PCP - General 03/23/14 12/04/14 documented as of this encounter
--- OUTSIDE RECORDS SUMMARY | 2024-11-14 22:23 | XMS_ITS | Encounter Summary ---
Author Organization [facility] Address [address] [place] [address]. [place], [place] [address] [place] [address] Care Team Providers Care Human Development Professor Name Role Phone Pb Su MD Primary [...] (Late st Contact Info) Description 11/02/2013 Abstract [facility] Family Medicine - [place] [address], [address] [place] [id number] Pb Su MD [address] [place] [address] Social History Tobacco Use Types Packs/Day Years Used Date Smoking Tobacco: Never Assessed Sex and Gender Information Value Date Recorded Sex Assigned at Not on file Legal Sex Male 7:22 PM CDT Gender Identity Not on file Sexual Orientation Not on file documented as of this encounter Last Filed Vital Signs Vital Sign Reading Time Taken Comments Blood Pressure 112/70 11/02/2013 8:10 AM [employer]R[facility] [employer] Pulse 64 11/02/2013 8:10 AM [employer] Temperature - - Respiratory Rate - - Oxygen Saturation - - Inhaled Oxygen Concentration - - Weight 100.2 kg (221 lb) 11/02/2013 8:10 AM [employer] Height 182.9 cm (6') 11/02/2013 8:10 AM [employer]UM Body Mass Index 29.97 11/02/2013 8:10 AM [employer] documented in this encounter Progress Notes * [...] 1 TABLET BY MOUTH AT BEDTIME; Therapy: 97Yze5104 to (Evaluate:31Swo6757); Last Rx:[id number] 2. Claritin 10 MG Oral Tablet; Therapy: (Recorded:55Qpt9724) to Allergies 1. Acetaminophen-Codeine #3 TABS Vitals [...] 1 TABLET 3 TIMES DAILY NEEDED; Therapy: 49Xia7838 to (Evaluate:12Dec2013); Last Rx:[id number] Signatures Electronically signed by : Randee Morrow, ; Nov 02 2013 8:48AM (Author) [employer] [employer] * Pb Su MD - 11/02/2013 8:15 [...] history: previous back injury. 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 The patient is currently able to do [...] to Allergies 1. Acetaminophen-Codeine #3 TABS Vitals 62Zpz1446 08:10AM Temperature 97 F, Oral Heart Rate [...] 1 TABLET 3 TIMES DAILY NEEDED; Therapy: 20Mww6994 to (Evaluate:12Dec2013) Requested for: 97Pbu7339; Last Rx:[id number]; Edited Ordered; For: Lower Back Pain (724.2); Rx By: Pb Su; Dispense: 10 Days ; #:30 Tablet; Refill: 3; Verified Transmission to [facility] 2. Call if: The pain is not better in 2 weeks. Done: 57Hzg5065 Ordered; For: Lower Back Pain (724.2); Ordered By: Pb Su 3. Call if: The pain seems worse. Done: 44Ssh1113 Ordered; For: Lower Back Pain (724.2); Ordered By: Pb Su 4. Call if: You get a headache that does not go away with your usual treatment. Done: 08Qco1160 Ordered; For: Lower Back Pain (724.2); Ordered By: Pb Su 5. Call if: You get a rash. Done: 00Bxj3751 Ordered; For: Lower Back Pain (724.2); Ordered By: Pb Su 6. Call if: You get a severe headache that seems different from your usual ones. Done: 02Zme1823 Ordered; For: Lower Back Pain (724.2); Ordered By: Pb Su 7. Call if: You have pain or numbness from your back to your hip and leg. Done: 58Apu2459 Ordered; For: Lower Back Pain (724.2); Ordered By: Pb Su 8. Call if: You lose weight without trying to. Done: 44Rwe5285 Ordered; For: Lower Back Pain (724.2); Ordered By: Pb Su 9. Call if: Your temperature is higher than 101F. Done: 95Dna7712 Ordered; For: Lower Back Pain (724.2); Ordered By: Pb Su 10. Call 911 if: You have any loss of bowel or bladder control. Done: 51Vyb4735 Ordered; For: Lower Back Pain (724.2); Ordered By: Pb Su 11. Call 911 if: You have signs of dangerous pressure on the nerves in your pelvis. Done: 32Suc8910 Ordered; For: Lower Back Pain (724.2); Ordered By: Pb Su 12. Seek Immediate Medical Attention if: Your foot becomes weak. Done: 85Siv0287 Ordered; For: Lower Back Pain (724.2); Ordered By: Pb Su 13. Seek Immediate Medical Attention if: Your leg is numb, cold, or tingling. Done: 03Fbf2212 Ordered; For: Lower Back Pain (724.2); Ordered By: Pb Su 14. Avoid being constipated and avoid straining while having a bowel movement. Done: 00Lug2216 Ordered; For: Lower Back Pain (724.2); Ordered By: Pb Su 15. Begin a walking program. Start with walks lasting 10 minutes and slowly work up to 30-40 minutes as pain allows. Done: 81Mah9127 Ordered; For: Lower Back Pain (724.2); Ordered By: Pb Su 16. Some eating tips that can help you lose weight. Done: 11Mzp4529 Ordered; For: Lower Back Pain (724.2); Ordered By: Pb Su 17. We recommend that you avoid straining your back while lifting. Done: 36Tet6899 Ordered; For: Lower Back Pain (724.2); Ordered By: Pb Su Discussion/Summary Summary: 48 yo male with low back pain/spasm: see Care Guide. Plan-IM toradol + muscle relaxant, + heating pad/rest! See Care Guide Signatures Electronically signed by : Pb Su M.D.; Nov 02 2013 2:29PM (Author) [employer] documented in this encounter Plan of Treatment Not on file documented as of this encounter Visit Diagnoses Not on filedocumented in this encounter Care Teams Human Development Professor Relationship Specialty Start Date End Date Pb Su MD [address] [place], [place] [address] PCP - General 04/26/16 Pb Su MD [address] [place], [place] [id number] PCP - General 05/19/15 04/25/16 Pb Su MD [address] [place], [place] [address] PCP - General 12/07/14 05/18/15 Pb Su MD [address] [place], [place] [id number] PCP - General 12/05/14 12/06/14 Pb Su MD [address] [place], [place] [address] PCP - General 03/23/14 12/04/14 Pb Su MD [address] [place] [address] PCP - General 03/21/14 03/22/14 Pb Su MD [address] [place] [address] PCP - General 03/16/14 03/20/14 Pb Su MD [address] [place], [place] [address] PCP - General 03/14/14 03/15/14 Pb Su MD [address] [place] [address] PCP - General 03/09/14 03/13/14 Pb Su MD [address] [place], [place] [address] PCP - General 03/02/14 03/08/14 Pb Su MD [address] [place], [place] [address] PCP - General 02/28/14 03/01/14 Pb Su MD [address] [place], [place] [address] PCP - General 02/25/14 02/27/14 Pb Su MD [address] [place] [address] PCP - General 02/23/14 02/24/14 Pb Su MD [address] [place] [address] PCP - General 02/17/14 02/22/14 Pb Su MD [address] [place] [address] PCP - General 11/02/13 02/16/14 documented as of this encounter
--- OUTSIDE RECORDS SUMMARY | 2024-11-14 22:23 | XMS_ITS | Encounter Summary ---
Author Organization [facility] Address [address] [place] [address]. [place] [address] [place] [address] Care Team Providers Care Oxyhydrogen Welder Name Role Phone Pb Su MD Primary Care Provider Pb Su MD Primary Care Provider [phone] Pb Su MD Primary Care Provider Encounter Details Date Type Department Care Team (Late st Contact Info) Description 12/07/2014 Abstract [facility] [place], [place] [id number] Pb Su MD [address] [place], [place] [address] Social History Tobacco Use Types Packs/Day Years Used Date Smoking Tobacco: Never Assessed Sex and Gender Information Value Date Recorded Sex Assigned at Not on file Legal Sex Male 7:22 PM CDT Gender Identity Not on file Sexual Orientation Not on file documented as of this encounter Plan of Treatment Not on file documented as of this encounter Visit Diagnoses Diagnosis Atrial fibrillation ([facility]) Atrial fibrillation documented in this encounter Care Teams Oxyhydrogen Welder Relationship Specialty Start Date End Date Pb Su MD [address] [place], [place] [address] PCP - General 04/26/16 Pb Su MD [address] [place] [address] PCP - General 05/19/15 04/25/16 Pb Su MD [address] [place] [address] PCP - General 12/07/14 05/18/15 documented as of this encounter
--- OUTSIDE RECORDS SUMMARY | 2024-11-14 22:23 | XMS_ITS | Encounter Summary ---
Author Organization [facility] Address [address] [place] [address]. [place], [place] [address] [place] [address] Care Team Providers Care Folded Towel Machine Operator Name Role Phone Pb Su MD Primary Care Provider Pb Su MD Primary Care Provider [phone] Pb Su MD Primary Care Provider Pb Su MD Primary Care Provider Pb Su MD Primary Care Provider [phone] Encounter Details Date Type Department Care Team (Latest Contact Info) Description 03/30/2014 Abstract [facility] Medical [facility] Social History Tobacco Use Types [...] on filedocumented in this encounter Care Teams Folded Towel Machine Operator Relationship Specialty Start Date End Date Pb Su MD [address] [place], [place] [id number] PCP - General 04/26/16 Pb Su MD [address] [place], [place] [address] PCP - General 05/19/15 04/25/16 Pb Su MD [address] [place], [place] [address] PCP - General 12/07/14 05/18/15 Pb Su MD [address] [place], [place] [address] PCP - General 12/05/14 12/06/14 Pb Su MD [address] [place], [place] [address] PCP - General 03/23/14 12/04/14 documented as of this encounter
--- OUTSIDE RECORDS SUMMARY | 2024-11-14 22:23 | XMS_ITS | Encounter Summary ---
Author Organization [facility] Address [address] [place] [address]. [place], [place] [address] [place] [address] Care Team Providers Care Crozer Operator Name Role Phone Pb Su MD Primary Care Provider [phone] Pb Su MD Primary Care Provider Pb [...] Team (Latest Contact Info) Description 02/18/2014 Abstract [facility] Medical Group Social [...] on filedocumented in this encounter Care Teams Crozer Operator Relationship Specialty Start Date End Date Pb Su MD [address] [place], [place] [address] PCP - General 04/26/16 Pb Su MD [address] [place] [address] PCP - General 05/19/15 04/25/16 Pb Su MD [address] [place], [place] [address] PCP - General 12/07/14 05/18/15 Pb Su MD [address] [place] [address] PCP - General 12/05/14 12/06/14 Pb Su MD [address] [place] [address] PCP - General 03/23/14 12/04/14 Pb Su MD [address] [place] [address] PCP - General 03/21/14 03/22/14 Pb Su MD [address] [place] [address] PCP - General 03/16/14 03/20/14 Pb Su MD [address] [place] [address] PCP - General 03/14/14 03/15/14 Pb Su MD [address] [place] [address] PCP - General 03/09/14 03/13/14 Pb Su MD [address] [place] [address] PCP - General 03/02/14 03/08/14 Pb Su MD [address] [place] [address] PCP - General 02/28/14 03/01/14 Pb Su MD [address] [place] [address] PCP - General 02/25/14 02/27/14 Pb Su MD [address] [place] [address] PCP - General 02/23/14 02/24/14 Pb Su MD [address] [place] [address] PCP - General 02/17/14 02/22/14 documented as of this encounter
--- OUTSIDE RECORDS SUMMARY | 2024-11-14 22:23 | XMS_ITS | Encounter Summary ---
Author Organization [facility] Address [address] [place] [address]. [place], [place] [address] [place] [address] Care Team Providers Care High School Physical Education Teacher Name Role Phone Pb Su MD [...] Team (Latest Contact Info) Description 10/04/2013 Abstract [facility] Medical Group [...] on filedocumented in this encounter Care Teams High School Physical Education Teacher Relationship Specialty Start Date End Date Pb Su MD [address] [place], [place] [address] PCP - General 04/26/16 Pb Su MD [address] [place] [address] PCP - General 05/19/15 04/25/16 Pb Su MD [address] [place] [address] PCP - General 12/07/14 05/18/15 Pb Su MD [address] [place] [address] PCP - General 12/05/14 12/06/14 Pb Su MD [address] [place] [address] PCP - General 03/23/14 12/04/14 Pb Su MD [address] [place] [address] PCP - General 03/21/14 03/22/14 Pb Su MD [address] [place] [address] PCP - General 03/16/14 03/20/14 Pb Su MD [address] [place] [address] PCP - General 03/14/14 03/15/14 Pb Su MD [address] [place] [address] PCP - General 03/09/14 03/13/14 Pb Su MD [address] [place] [address] PCP - General 03/02/14 03/08/14 Pb Su MD [address] [place] [address] PCP - General 02/28/14 03/01/14 Pb Su MD [address] [place] [address] PCP - General 02/25/14 02/27/14 Pb Su MD [address] [place] [address] PCP - General 02/23/14 02/24/14 Pb Su MD [address] [place] [address] PCP - General 02/17/14 02/22/14 Pb Su MD [address] [place] [address] PCP - General 11/02/13 02/16/14 Pb Su MD [address] [place] [address] PCP - General 09/30/13 11/01/13 documented as of this encounter
--- OUTSIDE RECORDS SUMMARY | 2024-11-14 22:23 | XMS_ITS | Encounter Summary ---
Author Organization [facility] Address [address] [place] [address]. [place], [place] [address] [place] [address] Care Team Providers Care Principal Developer Name Role Phone Pb Su MD [...] Team (Latest Contact Info) Description 02/02/2014 Abstract [facility] Medical Group Social History Tobacco Use [...] on filedocumented in this encounter Care Teams Principal Developer Relationship Specialty Start Date End Date Pb Su MD [address] [place], [place] [address] PCP - General 04/26/16 Pb Su MD [address] [place], [place] [address] PCP - General 05/19/15 04/25/16 Pb Su MD [address] [place], [place] [address] PCP - General 12/07/14 05/18/15 Pb Su MD [address] [place], [place] [address] PCP - General 12/05/14 12/06/14 Pb Su MD [address] [place], [place] [address] PCP - General 03/23/14 12/04/14 Pb Su MD [address] [place] [address] PCP - General 03/21/14 03/22/14 Pb Su MD [address] [place] [address] PCP - General 03/16/14 03/20/14 Pb Su MD [address] [place] [address] PCP - General 03/14/14 03/15/14 Pb Su MD [address] [place] [address] PCP - General 03/09/14 03/13/14 Pb Su MD [address] [place] [address] PCP - General 03/02/14 03/08/14 Pb Su MD [address] [place] [address] PCP - General 02/28/14 03/01/14 Pb Su MD [address] [place] [address] PCP - General 02/25/14 02/27/14 Pb Su MD [address] [place] [address] PCP - General 02/23/14 02/24/14 Pb Su MD [address] [place], [place] [address] PCP - General 02/17/14 02/22/14 Pb Su MD [address] [place], [place] [address] PCP - General 11/02/13 02/16/14 documented as of this encounter
--- OUTSIDE RECORDS SUMMARY | 2024-11-14 22:23 | XMS_ITS | Encounter Summary ---
Author Organization [facility] Address [address] [place] [address]. [place], [place] [address] [place] [address] Care Team Providers Care Blood Bank Supervisor Name Role Phone Pb Su MD [...] Team (Latest Contact Info) Description 01/21/2014 Abstract [facility] [...] on filedocumented in this encounter Care Teams Blood Bank Supervisor Relationship Specialty Start Date End Date Pb Su MD [address] [place], [place] [address] PCP - General 04/26/16 Pb Su MD [address] [place] [address] PCP - General 05/19/15 04/25/16 Pb Su MD [address] [place], [place] [address] PCP - General 12/07/14 05/18/15 Pb Su MD [address] [place], [place] [address] PCP - General 12/05/14 12/06/14 Pb Su MD [address] [place], [place] [address] PCP - General 03/23/14 12/04/14 Pb Su MD [address] [place], [place] [address] PCP - General 03/21/14 03/22/14 Pb Su MD [address] [place] [address] PCP - General 03/16/14 03/20/14 Pb Su MD [address] [place] [address] PCP - General 03/14/14 03/15/14 Pb Su MD [address] [place] [address] PCP - General 03/09/14 03/13/14 Pb Su MD [address] [place] [address] PCP - General 03/02/14 03/08/14 Pb Su MD [address] [place] [address] PCP - General 02/28/14 03/01/14 Pb Su MD [address] [place] [address] PCP - General 02/25/14 02/27/14 Pb Su MD [address] [place] [address] PCP - General 02/23/14 02/24/14 Pb Su MD [address] [place], [place] [address] PCP - General 02/17/14 02/22/14 Pb Su MD [address] [place], [place] [address] PCP - General 11/02/13 02/16/14 documented as of this encounter
--- OUTSIDE RECORDS SUMMARY | 2024-11-14 22:23 | XMS_ITS | Encounter Summary ---
Author Organization [facility] Address [address] [place] [address]. [place], [place] [address] [place] [address] Care Team Providers Care Fuel Cell Binder Name Role Phone Pb Su MD Primary [...] (Late st Contact Info) Description 01/28/2014 Abstract [facility] Family Medicine - [place] [address] [place] [phone] Pb Su MD [address] [place] [address] Social History Tobacco Use Types Packs/Day Years Used Date Smoking Tobacco: Never Assessed Sex and Gender Information Value Date Recorded Sex Assigned at Not on file Legal Sex Male 7:22 PM CDT Gender Identity Not on file Sexual Orientation Not on file documented as of this encounter Last Filed Vital Signs Vital Sign Reading Time Taken Comments Blood Pressure 108/70 01/28/2014 7:19 AM [employer] Pulse 64 01/28/2014 7:19 AM [employer] Temperature - - Respiratory Rate - - Oxygen Saturation - - Inhaled Oxygen Concentration - - Weight 100.2 kg (221 lb) 01/28/2014 7:19 AM [employer] Height 182.9 cm (6') 01/28/2014 7:19 AM [employer] Body Mass Index 29.97 01/28/2014 7:19 AM [employer] documented in this encounter Progress Notes * [...] 1 TABLET BY MOUTH AT BEDTIME; Therapy: [id number] to (Evaluate:24Jun2014); Last Rx:[id number] Ordered 2. Claritin 10 MG Oral Tablet; Therapy: (Recorded:[id number]) to Recorded 3. Cyclobenzaprine HCl - 10 MG Oral Tablet; TAKE 1 TABLET 3 TIMES DAILY NEEDED; Therapy: [id number] to (Evaluate:26Feb2014) Requested for: 93Msz1479; Last Rx:[id number] Ordered 4. TraMADol HCl - 50 MG Oral Tablet; TAKE 1 TABLET 3 TIMES DAILY; Therapy: [id number] to (Evaluate:06Feb2014); Last Rx:[id number] Ordered Allergies 1. Acetaminophen-Codeine #3 TABS Vitals [...] previous pain/parathesias originating from cervical spin! Request [facility] Authorization for Physical therapy Services eval/treatment [facility] site! Status: Need Information - Financial Authorization Requested for: 28Jan2014 Ordered; For: Arm numbness left, Left arm pain; Ordered By: Pb Su Performed: Order Comments: 48 yo male with left arm pain/parathesias: -history of cervical neck disc disease and previous pain/parathesias originating from cervical spin! Request [facility] Authorization for Physical therapy Services eval/treatment [facility] site! Due: 11Feb2014; Last Updated By: Denisse Ceja; 01/28/2014 8:54:52 AM 2. Begin a limited exercise program. Status: Complete Done: 29Jan2014 Ordered; For: Osteoarthritis; Ordered By: Pb Su 3. Continue with our present treatment plan. Status: Complete Done: 29Jan2014 Ordered; For: Osteoarthritis; Ordered By: Pb uS 4. Dairy foods are not the only [...] Pb Su M.D.; Jan 29 2014 7:55PM [employer] (Author) documented in this encounter Plan of Treatment Not on file documented as of this encounter Visit Diagnoses Not on filedocumented in this encounter Care Teams Fuel Cell Binder Relationship Specialty Start Date End Date Pb Su MD [address] [place], [place] [address] PCP - General 04/26/16 Pb Su MD [address] [place], [place] [address] PCP - General 05/19/15 04/25/16 Pb Su MD [address] [place] [address] PCP - General 12/07/14 05/18/15 Pb Su MD [address] [place], [place] [address] PCP - General 12/05/14 12/06/14 Pb Su MD [address] [place] [address] PCP - General 03/23/14 12/04/14 Pb Su MD [address] [place], [place] [address] PCP - General 03/21/14 03/22/14 Pb Su MD [address] [place], [place] [address] PCP - General 03/16/14 03/20/14 Pb Su MD [address] [place] [address] PCP - General 03/14/14 03/15/14 Pb Su MD [address] [place] [address] PCP - General 03/09/14 03/13/14 Pb Su MD [address] [place] [address] PCP - General 03/02/14 03/08/14 Pb Su MD [address] [place] [address] PCP - General 02/28/14 03/01/14 Pb Su MD [address] [place], [place] [address] PCP - General 02/25/14 02/27/14 Pb Su MD [address] [place] [address] PCP - General 02/23/14 02/24/14 Pb Su MD [address] [place], [place] [address] PCP - General 02/17/14 02/22/14 Pb Su MD [address] [place] [address] PCP - General 11/02/13 02/16/14 documented as of this encounter
--- OUTSIDE RECORDS SUMMARY | 2024-11-14 22:23 | XMS_ITS | Encounter Summary ---
Author Organization [facility] Address [address] [place] [address]. [place], [place] [address] [place] [address] Care Team Providers Care Package Lift Operator Name Role Phone Pb Su MD Primary Care Provider Pb Su MD Primary Care Provider Pb Su MD Primary Care Provider Pb Su MD Primary Care Provider Pb Su MD Primary Care Provider Encounter Details Date Type Department Care Team (Latest Contact Info) Description 04/04/2014 Abstract [facility] Medical Group Social History Tobacco Use Types [...] on filedocumented in this encounter Care Teams Package Lift Operator Relationship Specialty Start Date End Date Pb Su MD [address] [place], [place] [address] PCP - General 04/26/16 Pb Su MD [address] [place], [place] [address] PCP - General 05/19/15 04/25/16 Pb Su MD [address] [place], [place] [address] PCP - General 12/07/14 05/18/15 bP Su MD [address] [place], [place] [address] PCP - General 12/05/14 12/06/14 Pb Su MD [address] [place], [place] [address] PCP - General 03/23/14 12/04/14 documented as of this encounter
--- OUTSIDE RECORDS SUMMARY | 2024-11-14 22:23 | XMS_ITS | Encounter Summary ---
Author Organization [facility] Address [address] [place] [address]. [place], [place] [address] [place] [address] Care Team Providers Care Product Finisher Name Role Phone Pb Su MD Primary Care Provider [phone] Pb Su MD Primary Care Provider Pb Su MD Primary Care Provider [phone] Encounter Details Date Type Department Care Team (Latest Contact Info) Description 12/18/2014 Abstract [facility] Medical Group Social History [...] more information on this test, go to http://education.[email or web address] on original products/faq/ TotalTestosteroneLCMSMS TESTOSTERONE,FREE 71.5 Reference range: 35.0 to 155.0 Unit: pg/mL Test Performed by [facility], [facility] [place] [facility], [address] [place] [address] Pb Garcia M.D., Ph.D., Director of Laboratories , CLIA [id number] documented in this encounter Plan of Treatment Not on file documented as of this encounter Visit Diagnoses Not on filedocumented in this encounter Care Teams Product Finisher Relationship Specialty Start Date End Date Pb Su MD [address] [place], [place] [address] PCP - General 04/26/16 Pb Su MD [address] [place], [place] [address] PCP - General 05/19/15 04/25/16 Pb Su MD [address] [place], [place] [address] PCP - General 12/07/14 05/18/15 documented as of this encounter
--- OUTSIDE RECORDS SUMMARY | 2024-11-14 22:23 | XMS_ITS | Encounter Summary ---
Author Organization [facility] Address [address] [place] [address]. [place], [place] [address] [place] [address] Care Team Providers Care Wrist Liner Name Role Phone Pb Su MD Primary Care Provider Pb Su MD Primary Care Provider Pb Su MD Primary Care Provider Pb Su MD Primary Care Provider [phone] Pb Su MD Primary Care Provider Encounter Details Date Type Department Care Team (Latest Contact Info) Description 04/01/2014 Abstract [facility] Medical Group Social [...] on filedocumented in this encounter Care Teams Wrist Liner Relationship Specialty Start Date End Date Pb Su MD [address] [place], [place] [id number] PCP - General 04/26/16 Pb Su MD [address] [place], [place] [id number] PCP - General 05/19/15 04/25/16 Pb Su MD [address] [place], [place] [id number] PCP - General 12/07/14 05/18/15 Pb Su MD [address] [place], [place] [id number] PCP - General 12/05/14 12/06/14 Pb Su MD [address] [place], [place] [id number] PCP - General 03/23/14 12/04/14 documented as of this encounter
--- OUTSIDE RECORDS SUMMARY | 2024-11-14 22:23 | XMS_ITS | Encounter Summary ---
Author Organization [facility] Address [address] [place] [address]. [place], [place] [address] [place] [address] Care Team Providers Care Plastic Battery Assembler Name Role Phone Pb Su MD Primary Care Provider +1- [phone] Pb Su MD Primary Care Provider Pb Su MD Primary Care Provider +1- [phone] Encounter Details Date Type Department Care Team (Latest Contact Info) Description 12/07/2014 Abstract [facility] Medical Group Social History [...] on filedocumented in this encounter Care Teams Plastic Battery Assembler Relationship Specialty Start Date End Date Pb Su MD [address] [place], [place] [id number] PCP - General 04/26/16 Pb Su MD [address] [place], [place] [id number] PCP - General 05/19/15 04/25/16 Pb Su MD [address] [place], [place] [address] PCP - General 12/07/14 05/18/15 documented as of this encounter
--- OUTSIDE RECORDS SUMMARY | 2024-11-14 22:23 | XMS_ITS | Encounter Summary ---
Author Organization [facility] Address [address] [place] [address]. [place] [address] [place] [address] Care Team Providers Care Shade Bander Name Role Phone Pb Su MD Primary Care Provider [phone]- [phone] Pb Su MD Primary Care Provider [phone] Pb Su MD Primary Care Provider +1- [phone] Encounter Details Date Type Department Care Team (Latest Contact Info) Description 01/03/2015 Abstract [facility] Medical Group Social [...] on filedocumented in this encounter Care Teams Shade Bander Relationship Specialty Start Date End Date Pb Su MD [address] [place], [place] [id number] PCP - General 04/26/16 Pb Su MD [address] [place], [place] [address] PCP - General 05/19/15 04/25/16 Pb Su MD [address] [place] [address] PCP - General 12/07/14 05/18/15 documented as of this encounter
--- OUTSIDE RECORDS SUMMARY | 2024-11-14 22:23 | XMS_ITS | Encounter Summary ---
Author Organization [facility] Address [address] [place] [address]. [place], [place] [address] [place] [address] Care Team Providers Care Sales Developer Name Role Phone Pb Su MD [...] Team (Latest Contact Info) Description 09/30/[address] [facility] Pb Su MD [address] [place] [address] Social History Tobacco Use Types Packs/Day Years [...] HAND RT 3V Routine 09/30/2013 8:42 AM GROUNDS MAINTENANCE SUPERVISOR documented in this encounter Results * XR HAND RT 3V (09/30/2013 8:42 AM GROUNDS MAINTENANCE SUPERVISOR) Anatomical Region Laterality Modality Hand Radiographic Clary ging 09/30/2013 8:42 AM GROUNDS MAINTENANCE SUPERVISOR 09/30/2013 8:42 AM GROUNDS MAINTENANCE SUPERVISOR Narrative 09/30/2013 10:51 AM GROUNDS MAINTENANCE SUPERVISOR AVA CEDILLO JR MD: PB SU MD ?? ACCT: [id number] ?? : 1965 PT TYPE: REG CLI ?? SEX: M ORD SITE: [facility] OUTPT IMAGING ? STUDY DATE REPORT # PROCEDURE CODE PROCEDURE ?? 09/30/13 [id number] XR HAND MINIMUM 3 VIEW RT ? EXTORDERID ? [id number] ? ACCESSION NUMBER ?? [id number] ?CHART DOCUMENT ? IMPRESSION: ? NO ACUTE [...] HENDRICKSON M.D. ? D: ??09/30/2013 ??8:57 A ??#[id number] ?? T: ??09/30/2013 ??9:15 A/MA ? CC: ?PB SU M.D. ? Radiology image is available. Click on Image Link above. Procedure Note Vahe Chatterjee MD - 09/17/2018 AVA CEDILLO [facility] MD: PB SU MD ACCT: [id number] : 1965 PT TYPE: REG CLI SEX: M ORD SITE: [facility] OUTPT IMAGING STUDY DATE REPORT # PROCEDURE CODE PROCEDURE 09/30/13 [id number] XR HAND MINIMUM 3 VIEW RT EXTORDERID [id number] ACCESSION NUMBER [id number] CHART DOCUMENT IMPRESSION: NO ACUTE OSSEOUS ABNORMALITIES. [...] M.D. 09/30/2013 10:50 KEL HENDRICKSON M.D. A #[id number] A/MATILDE CC: PB SU M.D. Radiology image is available. Click on Image Link above. us Pb Su MD GENERAL IMAGING Final Resul t documented in this encounter Visit Diagnoses Not on filedocumented in this encounter Care Teams Sales Developer Relationship Specialty Start Date End Date Pb Su MD [address] [place] [address] PCP - General 04/26/16 Pb Su MD [address] [place] [address] PCP - General 05/19/15 04/25/16 Pb Su MD [address] [place] [address] PCP - General 12/07/14 05/18/15 Pb Su MD [address] [place] [address] PCP - General 12/05/14 12/06/14 Pb Su MD [address] [place] [address] PCP - General 03/23/14 12/04/14 Pb Su MD [address] [place], [place] [address] PCP - General 03/21/14 03/22/14 Pb Su MD [address] [place] [address] PCP - General 03/16/14 03/20/14 Pb Su MD [address] [place] [address] PCP - General 03/14/14 03/15/14 Pb Su MD [address] [place] [address] PCP - General 03/09/14 03/13/14 Pb Su MD [address] [place] [address] PCP - General 03/02/14 03/08/14 Pb Su MD [address] [place] [address] PCP - General 02/28/14 03/01/14 Pb Su MD [address] [place] [address] PCP - General 02/25/14 02/27/14 Pb Su MD [address] [place] [address] PCP - General 02/23/14 02/24/14 Pb Su MD [address] [place] [address] PCP - General 02/17/14 02/22/14 Pb Su MD [address] [place], [place] [address] PCP - General 11/02/13 02/16/14 Pb Su MD [address] [place] [address] PCP - General 09/30/13 11/01/13 documented as of this encounter
--- OUTSIDE RECORDS SUMMARY | 2024-11-14 22:23 | XMS_ITS | Encounter Summary ---
Author Organization [facility] Address [address] [place] [address]. [place], [place] [address] [place] [address] Care Team Providers Care Auto Body Repair Teacher Name Role Phone Pb Su MD [...] Team (Latest Contact Info) Description 10/30/[address] [facility] Medical Group [...] on filedocumented in this encounter Care Teams Auto Body Repair Teacher Relationship Specialty Start Date End Date Pb Su MD [address] [place], [place] [id number] PCP - General 04/26/16 Pb Su MD [address] [place] [address] PCP - General 05/19/15 04/25/16 Pb Su MD [address] [place] [address] PCP - General 12/07/14 05/18/15 Pb Su MD [address] [place] [address] PCP - General 12/05/14 12/06/14 Pb Su MD [address] [place] [address] PCP - General 03/23/14 12/04/14 Pb Su MD [address] [place] [address] PCP - General 03/21/14 03/22/14 Pb Su MD [address] [place] [address] PCP - General 03/16/14 03/20/14 Pb Su MD [address] [place] [address] PCP - General 03/14/14 03/15/14 Pb Su MD [address] [place] [address] PCP - General 03/09/14 03/13/14 Pb Su MD [address] [place], [place] [address] PCP - General 03/02/14 03/08/14 Pb Su MD [address] [place] [address] PCP - General 02/28/14 03/01/14 Pb Su MD [address] [place] [address] PCP - General 02/25/14 02/27/14 Pb Su MD [address] [place] [address] PCP - General 02/23/14 02/24/14 Pb Su MD [address] [place] [address] PCP - General 02/17/14 02/22/14 Pb Su MD [address] [place] [address] PCP - General 11/02/13 02/16/14 Pb Su MD [address] [place] [address] PCP - General 09/30/13 11/01/13 documented as of this encounter
--- OUTSIDE RECORDS SUMMARY | 2024-11-14 22:23 | XMS_ITS | Encounter Summary ---
Author Organization [facility] Address [address] [place] [address]. [place], [place] [address] [place] [address] Care Team Providers Care Shirt Ironer Supervisor Name Role Phone Pb Su MD [...] Team (Latest Contact Info) Description 11/29/[address] [facility] Medical Group Social [...] on filedocumented in this encounter Care Teams Shirt Ironer Supervisor Relationship Specialty Start Date End Date Pb Su MD [address] [place], [place] [address] PCP - General 04/26/16 Pb Su MD [address] [place], [place] [address] PCP - General 05/19/15 04/25/16 Pb Su MD [address] [place], [place] [address] PCP - General 12/07/14 05/18/15 Pb Su MD [address] [place], [place] [address] PCP - General 12/05/14 12/06/14 Pb Su MD [address] [place], [place] [address] PCP - General 03/23/14 12/04/14 Pb Su MD [address] [place], [place] [address] PCP - General 03/21/14 03/22/14 Pb Su MD [address] [place] [address] PCP - General 03/16/14 03/20/14 Pb Su MD [address] [place] [address] PCP - General 03/14/14 03/15/14 Pb Su MD [address] [place] [address] PCP - General 03/09/14 03/13/14 Pb Su MD [address] [place] [address]689 PCP - General 03/02/14 03/08/14 Pb Su MD [address] [place] [address] PCP - General 02/28/14 03/01/14 Pb Su MD [address] [place] [address] PCP - General 02/25/14 02/27/14 Pb Su MD [address] [place] [address] PCP - General 02/23/14 02/24/14 Pb Su MD [address] [place], [place] [address] PCP - General 02/17/14 02/22/14 Pb Su MD [address] [place], [place] [address] PCP - General 11/02/13 02/16/14 documented as of this encounter
--- OUTSIDE RECORDS SUMMARY | 2024-11-14 22:23 | XMS_ITS | Encounter Summary ---
Author Organization [facility] Address [address] [place] [address]. [place], [place] [address] [place] [address] Care Team Providers Care Plating Tank Operator Name Role Phone Pb Su MD Primary Care Provider Pb Su MD Primary Care Provider Pb Su MD Primary Care Provider Pb Su MD Primary Care Provider Pb Su MD Primary Care Provider Encounter Details Date Type Department Care Team (Latest Contact Info) Description 03/24/2014 Abstract [facility] Medical Group Social History Tobacco [...] on filedocumented in this encounter Care Teams Plating Tank Operator Relationship Specialty Start Date End Date Pb Su MD [address] [place], [place] [address] PCP - General 04/26/16 Pb Su MD [address] [place], [place] [address] PCP - General 05/19/15 04/25/16 Pb Su MD [address] [place], [place] [address] PCP - General 12/07/14 05/18/15 Pb Su MD [address] [place], [place] [address] PCP - General 12/05/14 12/06/14 Pb Su MD [address] [place], [place] [address] PCP - General 03/23/14 12/04/14 documented as of this encounter
--- OUTSIDE RECORDS SUMMARY | 2024-11-14 22:23 | XMS_ITS | Encounter Summary ---
Author Organization [facility] Address [address] [place] [address]. [place], [place] [address] [place] [address] Care Team Providers Care Clinical Psychologist Licensed Name Role Phone Pb Su MD Primary [...] (Late st Contact Info) Description 09/30/2013 Abstract [facility] Medical Group Family Medicine - [address] [place] [address] Pb Su MD [address] [place] [address] Social History Tobacco Use Types [...] Comments Blood Pressure 102/68 09/30/2013 7:51 AM DESKTOP PUBLISHER Pulse 60 09/30/2013 7:51 AM DESKTOP PUBLISHER Temperature - - Respiratory Rate - - Oxygen Saturation - - Inhaled Oxygen Concentration - - Weight 102.1 kg (225 lb) 09/30/2013 7:51 AM DESKTOP PUBLISHER Height - - Body Mass Index 30.52 08/19/2013 3:06 PM CDT documented in this encounter Progress Notes * Pb Su MD - 09/30/2013 3:30 PM CST Verified Results XR HAND MINIMUM 3 VIEW RT ( Routine ) 30Sep2013 08:57AM Pb Su Test Name Result Flag Reference AVA CEDILLO JR ORDERING MD: PB SU MD ACCT: [id number] : 1965 PT TYPE: REG CLI SEX: M ORD SITE: [facility] OUTPT IMAGING STUDY DATE REPORT # PROCEDURE CODE PROCEDURE 09/30/13 [id number] XR HAND MINIMUM 3 VIEW RT EXTORDERID [id number] ACCESSION NUMBER [id number] CHART DOCUMENT IMPRESSION: NO ACUTE OSSEOUS ABNORMALITIES. [...] M.D. 09/30/2013 10:50 KEL HENDRICKSON M.D. A #[id number] A/MATILDE CC: PB SU M.D. Radiology image is available. Click on Image Link above. XR HAND MINIMUM 3 VIEW LT ( Routine ) 30Sep2013 08:56AM Pb Su Test Name Result Flag Reference AVA CEDILLO JR MD: PB SU MD ACCT: [id number] : 1965 PT TYPE: REG CLI SEX: M ORD SITE: [facility] OUT IMAGING STUDY DATE REPORT # PROCEDURE CODE PROCEDURE 09/30/13 [id number] XR HAND MINIMUM 3 VIEW LT EXTORDERID [id number] ACCESSION NUMBER [id number] CHART DOCUMENT IMPRESSION: NO ACUTE OSSEOUS ABNORMALITIES. NO SIGNIFICANT FEATURES OF ARTHRITIS. HISTORY: PAIN IN BOTH HANDS X3 WEEKS. HISTORY OF ARTHRITIS. THREE VIEWS LEFT HAND FINDINGS: NO ACUTE FRACTURE OR DISLOCATION. JOINT SPACES ARE PRESERVED. NO DESTRUCTIVE OSSEOUS, LYTIC, OR SCLEROTIC LESION. NO RADIOPAQUE FOREIGN BODIES. ELECTRONICALLY SIGNED BY: KEL HENDRICKSON M.D. 09/30/2013 10:50 KEL HENDRICKSON M.D. A #[id number] A/MA CC: PB SU M.D. Radiology image is available. Click on Image Link above. TOP PUBLISHER * Pb Su MD - 09/30/2013 7:30 AM CST Reason For Visit Acute Visit Chief Complaint Here today for bilateral hand pain. Pain level is a 5. History of Present Illness The patient is being seen for follow-up of a hand problem affecting both hands. The patient is ambidextrous. Current Symptoms include pain and stiffnessno hand superintendent service weakness, no decreased pinch strength, no decreased [...] spouse. He is . 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 The patient has never smoked cigarettes [...] history: previous back injury. 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 The patient is currently able to [...] 1 TABLET BY MOUTH AT BEDTIME; Therapy: [id number] to (Evaluate:24Jun2014); Last Rx:[id number] 2. Claritin 10 MG Oral Tablet; Therapy: (Recorded:29Jun2013) to 3. Nabumetone 500 MG Oral Tablet; TAKE 2 TABLETS DAILY; Therapy: 75Ast7093 to (Evaluate:14Oct2013) Requested for: 50Fpj0621; Last Rx:[id number] Allergies 1. Acetaminophen-Codeine #3 TABS Vitals 30Sep2013 [...] CEDILLO JR MD: PB SU MD ACCT: [id number] : 1965 PT TYPE: REG CLI SEX: M ORD SITE: [facility] IMAGING STUDY DATE REPORT # PROCEDURE CODE PROCEDURE 09/30/13 [id number] XR HAND MINIMUM 3 VIEW LT EXTORDERID [id number] ACCESSION NUMBER [id number] CHART DOCUMENT IMPRESSION: NO ACUTE OSSEOUS ABNORMALITIES. NO SIGNIFICANT FEATURES OF ARTHRITIS. HISTORY: PAIN IN BOTH HANDS X3 WEEKS. HISTORY OF ARTHRITIS. THREE VIEWS LEFT HAND FINDINGS: NO ACUTE FRACTURE OR DISLOCATION. JOINT SPACES ARE PRESERVED. NO DESTRUCTIVE OSSEOUS, LYTIC, OR SCLEROTIC LESION. NO RADIOPAQUE FOREIGN BODIES. ELECTRONICALLY SIGNED BY: KEL HENDRICKSON M.D. 09/30/2013 10:50 KEL HENDRICKSON M.D. A #[id number] A/MATILDE CC: PB SU M.D. Radiology image is available. Click on Image Link above. XR HAND MINIMUM 3 VIEW RT ( Routine ) 30Sep2013 08:42AM Pb Su Test Name Result Flag Reference NGUYENAVA RYAN ALEX MD: PB SU MD ACCT: [id number] : 1965 PT TYPE: REG CLI SEX: M ORD SITE: [facility] OUTPT IMAGING STUDY DATE REPORT # PROCEDURE CODE PROCEDURE 09/30/13 [id number] XR HAND MINIMUM 3 VIEW RT EXTORDERID [id number] ACCESSION NUMBER [id number] CHART DOCUMENT IMPRESSION: NO ACUTE OSSEOUS ABNORMALITIES. [...] M.D. 09/30/2013 10:50 KEL HENDRICKSON M.D. A #[id number] Latisha/MATILDE CC: PB SU M.D. Radiology image is available. Click on Image Link above. plane films: mild degenerative changes Assessment 1. Osteoarthritis 715.90 2. Hyperlipidemia 272.4 3. Fatigue 780.79 4. Lower Back Pain 724.2 Pain In The Hands 729.5 Plan 1. XR HAND 2 VIEW LT Requested for: 30Sep2013 Ordered; For: Osteoarthritis (715.90); Ordered By: Pb Su Perform: . [facility] Radiology Order Comments: increasing hand/finger pain/stiffness: osteoarthritis Due: 07Oct2013 2. XR HAND 2 VIEW RT Requested for: 30Sep2013 Ordered; For: Osteoarthritis (715.90); Ordered By: Pb Su Perform: . [facility] Radiology Due: 07Oct2013 3. Call if: The [...] pain> PIP,DIP >Joints! Request OT services at [facility] for eval and treatment! Due: 14Oct2013 Discussion/Summary [...] advised to be evaluat ed by an backend java developer and a dentist. Advice and education were given regarding nutrition, aerobic exercise, weight bearing exercise, calcium supplements, vitamin D supplements, sunscreen use and seat belt use. Patient discussion: discussed with the patient. Signatures Electronically signed by : Pb Su M.D.; Oct 03 2013 11:06AM (Author) TOP PUBLISHER documented in this encounter Plan of Treatment Not on file documented as of this encounter Procedures Procedure Name Priority Date/Time Associated Diagnosis Comments COMPREHENSIVE METABOLIC PANEL Routine 11/02/2013 9:55 AM DESKTOP PUBLISHER LIPID PANEL Routine 11/02/2013 9:55 AM DESKTOP PUBLISHER CK (CPK) Routine 11/02/2013 9:55 AM DESKTOP PUBLISHER documented in this encounter Results * CK (CPK) (11/02/2013 9:55 AM DESKTOP PUBLISHER) CPK 140 39 - 308 IU/L [facility] TO EPIC CONVERSION 11/02/2013 9:55 AM DESKTOP PUBLISHER 11/02/2013 9:55 AM DESKTOP PUBLISHER Narrative [facility] TO EPIC CONVERSION - 11/02/2013 4:43 PM DESKTOP PUBLISHER Result Communication: Call patient with results us Pb Su MD LABORATORY Final Resul t [facility] TO EPIC CONVERSION * (ABNORMAL) LIPID PANEL (11/02/2013 9:55 AM DESKTOP PUBLISHER) CHOLESTEROL 190 <200 mg/dL [facility] TO EPIC [...] [facility] TO EPIC CONVERSION 11/02/2013 9:55 AM DESKTOP PUBLISHER 11/02/2013 9:55 AM DESKTOP PUBLISHER Narrative [facility] TO EPIC CONVERSION - 11/02/2013 4:43 PM DESKTOP PUBLISHER Result Communication: Call patient with results us Pb Su MD LABORATORY Final Resul t [facility] TO EPIC CONVERSION * COMPREHENSIVE METABOLIC PANEL (11/02/2013 9:55 AM DESKTOP PUBLISHER) SODIUM S/P/B 140 136 - 145 mmol/L [...] [facility] TO EPIC CONVERSION 11/02/2013 9:55 AM DESKTOP PUBLISHER 11/02/2013 9:55 AM DESKTOP PUBLISHER Narrative [facility] TO EPIC CONVERSION - 11/02/2013 4:43 PM DESKTOP PUBLISHER Result Communication: Call patient with results us Pb Su MD LABORATORY Final Resul t [facility] TO EPIC CONVERSION documented in this encounter Visit Diagnoses Not on filedocumented in this encounter Care Teams Clinical Psychologist Licensed Relationship Specialty Start Date End Date Pb Su MD [address] [place], [place] [address] PCP - General 04/26/16 Pb Su MD [address] [place], [place] [address] PCP - General 05/19/15 04/25/16 Pb Su MD [address] [place], [place] [address] PCP - General 12/07/14 05/18/15 Pb Su MD [address] [place] [address] PCP - General 12/05/14 12/06/14 Pb Su MD [address] [place], [place] [address] PCP - General 03/23/14 12/04/14 Pb Su MD [address] [place] [address] PCP - General 03/21/14 03/22/14 Pb Su MD [address] [place] [address] PCP - General 03/16/14 03/20/14 Pb Su MD [address] [place], [place] [address] PCP - General 03/14/14 03/15/14 Pb Su MD [address] [place] [address] PCP - General 03/09/14 03/13/14 Pb Su MD [address] [place], [place] [address] PCP - General 03/02/14 03/08/14 Pb Su MD [address] [place] [address] PCP - General 02/28/14 03/01/14 Pb Su MD [address] [place], [place] [address] PCP - General 02/25/14 02/27/14 Pb Su MD [address] [place], [place] [address] PCP - General 02/23/14 02/24/14 Pb Su MD [address] [place] [address] PCP - General 02/17/14 02/22/14 Pb Su MD [address] [place], [place] [address] PCP - General 11/02/13 02/16/14 Pb Su MD [address] [place], [place] [address] PCP - General 09/30/13 11/01/13 documented as of this encounter
--- OUTSIDE RECORDS SUMMARY | 2024-11-14 22:23 | XMS_ITS | Encounter Summary ---
Author Organization [facility] Address [address] [place] [address]. [place] [address] [place] [address] Care Team Providers Care Services Coordinator Name Role Phone Pb Su MD Primary Care Provider Pb Su MD Primary Care Provider Pb Su MD Primary Care Provider Pb Su MD Primary Care Provider Encounter Details Date Type Department Care Team (Late st Contact Info) Description 12/05/2014 Abstract [facility] Family Medicine - [place] [address], [address] [place] [phone] Pb Su MD [address] [place], [place] [address] Social History Tobacco Use Types Packs/Day Years Used Date Smoking Tobacco: Never Assessed Sex and Gender Information Value Date Recorded Sex Assigned at Not on file Legal Sex Male 7:22 PM CDT Gender Identity Not on file Sexual Orientation Not on file documented as of this encounter Last Filed Vital Signs Vital Sign Reading Time Taken Comments Blood Pressure 130/78 12/05/2014 11:15 AM AUTOMATIC PUNCH PRESS OPERATOR Pulse 64 12/05/2014 11:15 AM AUTOMATIC PUNCH PRESS OPERATOR Temperature - - Respiratory Rate - - Oxygen Saturation - - Inhaled Oxygen Concentration - - Weight 97.5 kg (215 lb) 12/05/2014 11:15 AM AUTOMATIC PUNCH PRESS OPERATOR Height 182.9 cm (6') 12/05/2014 11:15 AM AUTOMATIC PUNCH PRESS OPERATOR Body Mass Index 29.16 12/05/2014 11:15 AM AUTOMATIC PUNCH PRESS OPERATOR documented in this encounter Progress Notes * Pb Su MD - 12/05/2014 11:15 AM CST Reason For Visit Reason For Visit: Chronic Recheck Visit Chief Complaint co fatigue Cough, fatigue, general ill feeling, joint pain. 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 He is an avid exercise enthusiast but [...] are noted. Current treatment includes Increasing fluid, [id number]-[id number] cough and cold remedies. By report, there [...] 1. Claritin 10 MG Oral Tablet; Therapy: (Recorded:[id number]) to Recorded Dispense: 0 Days ; #: [...] 30-100 POTENTIAL INTOXICATION >100 TESTING PERFORMED AT [facility], A MEMBER OF THE [facility]. Chest x-ray - negative. [...] Transmission to [facility]; Last Updated By: [employer]; 12/05/2014 12:38:05 PM Fatigue 2. Free / Total Testosterone Status: Active Requested for: 05Dec2014 Perform: [facility] Due: 63Gsd2756; Ordered; For: Fatigue; Ordered By: Pb Su 3. Vitamin D 25 - Hydroxy Status: Resulted - Requires Verification Done: 07Dec2014 07:30AM Performed: [email or web address] [place] Due: 35Zvo5375; Ordered; For: Fatigue; Ordered By: Pb Su CBC WO Diff ( Hemogram ) Status: Resulted - Requires Verification Done: 24Nov2023 12:00AM Due: 92Vup3943; Ordered; For: Atrial fibrillation, Fatigue; Ordered By: Pb Su Compr Metabolic Prof ( CMP ) Status: Resulted - Requires Verification Done: 24Nov2023 12:00AM Due: 53Taa1079; Ordered; For: Fatigue; Ordered By: Pb Su Lipid Profile Status: Resulted - Requires Verification Done: 24Nov2023 12:00AM Due: 13Sdu5226; Ordered; For: Fatigue; Ordered By: Pb Su TSH W Reflex Free T4 Status: Resulted - Requires Verification Done: 24Nov2023 12:00AM Due: 20Uce4160; Ordered; For: Fatigue; Ordered By: Pb Su Prostate Specif Ag ( PSA ) Scrn Status: Resulted - Requires Verification Done: 24Nov2023 12:00AM Due: 68Mxu0454; Ordered; For: Fatigue; Ordered By: Pb Su XR CHEST 2 VIEW ( Routine ) Status: Resulted - Requires Verification Done: 24Nov2023 12:00AM Due: 75Irc8825; Ordered; For: Cough, Fatigue; Ordered By: Pb [...] Pb Su M.D.; Dec 20 2014 1:58PM AUTOMATIC PUNCH PRESS OPERATOR (Author) documented in this encounter Plan of Treatment Not on file documented as of this encounter Procedures Procedure Name Priority Date/Time Associated Diagnosis Comments TSH W/REFLEX Routine 12/07/2014 7:30 AM AUTOMATIC PUNCH PRESS OPERATOR TESTOSTERONE, FREE & TOTAL Routine 12/07/2014 7:30 AM AUTOMATIC PUNCH PRESS OPERATOR PROSTATE SPECIFIC ANTIGEN,TOTAL Routine 12/07/2014 7:30 AM AUTOMATIC PUNCH PRESS OPERATOR COMPREHENSIVE METABOLIC PANEL Routine 12/07/2014 7:30 AM AUTOMATIC PUNCH PRESS OPERATOR LIPID PANEL Routine 12/07/2014 7:30 AM AUTOMATIC PUNCH PRESS OPERATOR CBC, AUTO, NO DIFF Routine 12/07/2014 7: 30 AM AUTOMATIC PUNCH PRESS OPERATOR VITAMIN D, 25 OH Routine 12/07/2014 7:30 AM AUTOMATIC PUNCH PRESS OPERATOR XR CHEST 2V+NIPPLE MARKER Routine 12/05/2014 12:38 PM AUTOMATIC PUNCH PRESS OPERATOR documented in this encounter Results * PROSTATE SPECIFIC ANTIGEN,TOTAL (12/07/2014 7:30 AM AUTOMATIC PUNCH PRESS OPERATOR) PSA 0.860 <4.0 ng/mL [facility] TO EPIC CONVERSION Comment: Result Comment: TEST WAS PERFORMED USING THE YADI METHOD. ??PSA VALUES OBTAINED WITH OTHER ASSAY METHODS OR KITS CANNOT BE USED INTERCHANGEABLY WITH RESULTS OBTAINED BY THE YADI METHOD. 12/07/2014 7:30 AM AUTOMATIC PUNCH PRESS OPERATOR 12/07/2014 7:30 AM AUTOMATIC PUNCH PRESS OPERATOR Narrative [facility] TO EPIC CONVERSION - 12/07/2014 4:30 PM AUTOMATIC PUNCH PRESS OPERATOR Result Communication: No patient communication needed at this time us Pb Su MD LABORATORY Final Resul t [facility] TO EPIC CONVERSION * TSH W/REFLEX (SNS) (12/07/2014 7:30 AM AUTOMATIC PUNCH PRESS OPERATOR) TSH 0.76 0.27 - 4.20 mIU/mL [facility] TO EPIC CONVERSION Comment:Result Comment: FREE T4 NOT INDICATED 12/07/2014 7:30 AM AUTOMATIC PUNCH PRESS OPERATOR 12/07/2014 7:30 AM AUTOMATIC PUNCH PRESS OPERATOR Narrative [facility] TO EPIC CONVERSION - 12/07/2014 4:30 PM AUTOMATIC PUNCH PRESS OPERATOR Result Communication: No patient communication needed at this time Pb Su MD LABORATORY Final Resul t Performing Organization Address [facility] de Phone Number [facility] TO EPIC CONVERSION * VITAMIN D, 25 OH (12/07/2014 7:30 AM AUTOMATIC PUNCH PRESS OPERATOR) VITAMIN D 25 HYDROXY S/P/B 30 30 - 100 NG/ML [facility] TO EPIC CONVERSION Comment: Result Comment: ?? SUPPLEMENTING WITH VITAMIN D2 MAY RESULT IN FALSELY LOW RESULTS, CLINICAL CORRELATION NEEDED. ? INTERPRETATION ? DEFICIENT ??<20 ?INSUFFICIENT 20-30 ?SUFFICIENT 30-100 POTENTIAL INTOXICATION ??>100 ? TESTING PERFORMED AT [facility], A MEMBER OF THE [facility]. 12/07/2014 7:30 AM AUTOMATIC PUNCH PRESS OPERATOR 12/07/2014 7:30 AM AUTOMATIC PUNCH PRESS OPERATOR Narrative [facility] TO EPIC CONVERSION - 12/08/2014 6:37 PM AUTOMATIC PUNCH PRESS OPERATOR Result Communication: No patient communication needed at this time Pb Su MD LABORATORY Final Resul t Performing Organization Address [facility] de Phone Number [facility] TO EPIC CONVERSION * TESTOSTERONE, FREE & TOTAL (12/07/2014 7:30 AM AUTOMATIC PUNCH PRESS OPERATOR) TESTOSTERONE TOTAL 331 [facility] TO EPIC CONVERSION Comment: Result Comment: Reference range: 250 to 1100 Unit: ng/dL For more information on this test, go to http://education.Eko [place].Billdesk/faq/ TotalTestosteroneLCMSMS TESTOSTERONE FREE 71.5 ME [facility] TO EPIC CONVERSION Comment: Result Comment: Reference range: 35.0 to 155.0 Unit: pg/mL Test Performed by [facility], [address] [place], [place] Pb Garcia M.D., Ph.D., Director of Laboratories , [place] [id number] 12/07/2014 7:30 AM AUTOMATIC PUNCH PRESS OPERATOR 12/07/2014 7:30 AM AUTOMATIC PUNCH PRESS OPERATOR Narrative [facility] TO EPIC CONVERSION - 12/11/2014 12:03 PM AUTOMATIC PUNCH PRESS OPERATOR Result Communication: No patient communication needed at this time us Pb Su MD LABORATORY Final Resul t [facility] TO EPIC CONVERSION * (ABNORMAL) LIPID PANEL (12/07/2014 7:30 AM AUTOMATIC PUNCH PRESS OPERATOR) CHOLESTEROL 255(H) <200 mg/dL [facility] TO EPIC [...] [facility] TO EPIC CONVERSION 12/07/2014 7:30 AM AUTOMATIC PUNCH PRESS OPERATOR 12/07/2014 7:30 AM AUTOMATIC PUNCH PRESS OPERATOR Narrative [facility] TO EPIC CONVERSION - 12/07/2014 4:31 PM AUTOMATIC PUNCH PRESS OPERATOR Result Communication: No patient communication needed at this time us Pb Su MD LABORATORY Final Resul t [facility] TO EPIC CONVERSION * COMPREHENSIVE METABOLIC PANEL (12/07/2014 7:30 AM AUTOMATIC PUNCH PRESS OPERATOR) SODIUM S/P/B 139 136 - 145 mmol/L [...] [facility] TO EPIC CONVERSION 12/07/2014 7:30 AM AUTOMATIC PUNCH PRESS OPERATOR 12/07/2014 7:30 AM AUTOMATIC PUNCH PRESS OPERATOR Narrative [facility] TO EPIC CONVERSION - 12/07/2014 4:31 PM AUTOMATIC PUNCH PRESS OPERATOR Result Communication: No patient communication needed at this time us Pb Su MD LABORATORY Final Resul t [facility] TO EPIC CONVERSION * (ABNORMAL) CBC, AUTO, NO DIFF (12/07/2014 7:30 AM AUTOMATIC PUNCH PRESS OPERATOR) WBC 12.1(H) 4.8 - 10.8 X10'3/uL [facility] [...] [facility] TO EPIC CONVERSION 12/07/2014 7:30 AM AUTOMATIC PUNCH PRESS OPERATOR 12/07/2014 7:30 AM AUTOMATIC PUNCH PRESS OPERATOR Narrative [facility] TO EPIC CONVERSION - 12/07/2014 3:14 PM AUTOMATIC PUNCH PRESS OPERATOR Result Communication: No patient communication needed at this time Pb Su MD LABORATORY Final Resul t [facility] TO EPIC CONVERSION * XR CHEST 2V+NIPPLE MARKER (12/05/2014 12:38 PM AUTOMATIC PUNCH PRESS OPERATOR) Anatomical Region Laterality Modality Chest Radiographic Clary ging 12/05/2014 12:3 8 PM AUTOMATIC PUNCH PRESS OPERATOR 12/05/2014 12:38 PM AUTOMATIC PUNCH PRESS OPERATOR Narrative 12/06/2014 12:38 PM AUTOMATIC PUNCH PRESS OPERATOR AVA CEDILLO ORDERING MD: PB SU MD ?? ACCT: [id number] ?? ADMIT/SERVICE DATE: 12/05/14 DISCHARGE DATE: ?? : 1965 PT TYPE: REG CLI ?? SEX: M ORD SITE: [facility] [place] [facility] ? STUDY DATE REPORT # PROCEDURE CODE PROCEDURE ?? 12/05/14 0614-9412 CXR2V XR CHEST 2 VIEW ? EXTORDERID ? [id number] ? ACCESSION NUMBER ?? [id number] ?CHART DOCUMENT ? IMPRESSION: ? MILD BRONCHITIS [...] LANCASTER M.D. ? D: ??12/05/2014 12:38 P ??#[id number] ?? T: ??12/05/2014 01:22 P/MA ? CC: ?PB SU M.D. ? Procedure Note Pb Su MD - 09/16/2018 AVA CEDILLO JR, MD: PB SU MD ACCT: [id number] ADMIT/SERVICE DATE: 12/05/14 DISCHARGE DATE: : 1965 PT TYPE: REG CLI SEX: M ORD SITE: [facility] STUDY DATE REPORT # PROCEDURE CODE PROCEDURE 12/05/14 [id number] CXR2V XR CHEST 2 VIEW EXTORDERID [id number] ACCESSION NUMBER [id number] CHART DOCUMENT IMPRESSION: MILD BRONCHITIS AND POSSIBLE [...] 12/06/2014 12:36 P ROLANDA LANCASTER M.D. P #[id number] P/MA CC: PB SU M.D. Pb Su MD GENERAL IMAGING Final Resul t documented in this encounter Visit Diagnoses Not on filedocumented in this encounter Care Teams Services Coordinator Relationship Specialty Start Date End Date Pb Su MD [address] [place], [place] [id number] PCP - General 04/26/16 Pb Su MD [address] [place], [place] [address] PCP - General 05/19/15 04/25/16 Pb Su MD [address] [place] [address] PCP - General 12/07/14 05/18/15 Pb Su MD [address] [place] [address] PCP - General 12/05/14 12/06/14 documented as of this encounter
--- OUTSIDE RECORDS SUMMARY | 2024-11-14 22:23 | XMS_ITS | Encounter Summary ---
Author Organization [facility] Address [address] [place] [address]. [place], [place] [address] [place] [address] Care Team Providers Care Mechanical Spreader Operator Name Role Phone Pb Su MD Primary Care Provider [phone] Pb Su MD Primary Care Provider Pb Su MD Primary Care Provider [phone] Encounter Details Date Type Department Care Team (Latest Contact Info) Description 12/14/2014 Abstract [facility] Social [...] Gi Aquino, ; Dec 14 2014 2:19PM CREWMAN MAIN BATTLE TANK (Author) documented in this encounter Plan of Treatment Not on file documented as of this encounter Visit Diagnoses Not on filedocumented in this encounter Care Teams Mechanical Spreader Operator Relationship Specialty Start Date End Date Pb Su MD [address] [place] [phone] PCP - General 04/26/16 Pb Su MD [address] [place] [address] PCP - General 05/19/15 04/25/16 Pb Su MD [address] [place] [address] PCP - General 12/07/14 05/18/15 documented as of this encounter
--- OUTSIDE RECORDS SUMMARY | 2024-11-14 22:23 | XMS_ITS | Encounter Summary ---
Author Organization [facility] Address [address] [place] [address]. [place] [address] [place] [address] Care Team Providers Care Sheet Metal Duct Installer Name Role Phone Pb Su MD Primary Care Provider Pb Su MD Primary Care Provider [phone] Pb Su MD Primary Care Provider Pb Su MD Primary Care Provider Encounter Details Date Type Department Care Team (Late st Contact Info) Description 12/05/2014 Abstract [facility] Imaging [address] [place] [address] Pb Su MD [address] [place], [place] [id number] Social History Tobacco Use Types Packs/Day Years [...] chronic documented in this encounter Care Teams Sheet Metal Duct Installer Relationship Specialty Start Date End Date Pb Su MD [address] [place], [place] [id number] PCP - General 04/26/16 Pb Su MD [address] [place], [place] [phone] PCP - General 05/19/15 04/25/16 Pb Su MD [address] [place], [place] [phone] PCP - General 12/07/14 05/18/15 Pb Su MD [address] [place], [place] [phone] PCP - General 12/05/14 12/06/14 documented as of this encounter
--- OUTSIDE RECORDS SUMMARY | 2024-11-14 22:23 | XMS_ITS | Encounter Summary ---
Author Organization [facility] Address [address] [place] [address]. [place], [place] [address] [place] [address] Care Team Providers Care Sack Cleaning Hand Name Role Phone Pb Su MD [...] (Late st Contact Info) Description 01/17/2014 Abstract [facility] Family Medicine - [place] [address] [place] [phone] Pb Su MD [address] [place] [address] Social History Tobacco Use Types Packs/Day Years [...] - - Pulse 80 01/17/2014 2:09 PM TELEHEALTH DIRECTOR Temperature - - Respiratory Rate - - Oxygen Saturation - - Inhaled Oxygen Concentration - - Weight 100.2 kg (221 lb) 01/17/2014 2:09 PM TELEHEALTH DIRECTOR Height 182.9 cm (6') 01/17/2014 2:09 PM TELEHEALTH DIRECTOR Body Mass Index 29.97 01/17/2014 2:09 PM TELEHEALTH DIRECTOR documented in this encounter Progress Notes [...] 1 TABLET BY MOUTH AT BEDTIME; Therapy: 29Mdk4299 to (Evaluate:38Hyy8633); Last Rx:38Etd7553 Ordered 2. Claritin 10 MG Oral Tablet; Therapy: (Recorded:48Gqa7311) to Recorded Allergies 1. Acetaminophen-Codeine #3 TABS Vitals Recorded by : Marcial Denisse at 84Egp8750 02:09PM Temperature 98.1 F, Oral Heart Rate [...] TABLET 3 TIMES DAILY NEEDED Rx By: bP Su; Dispense: 10 Days ; #:30 Tablet; Refill: 3; For: Muscle spasm; GAYLE = N; Sent To: [facility] 3. Dairy foods are not the only way to get calcium in your diet. Status: Complete Done: 02Bnd2138 03:25PM Ordered; For: Osteoarthritis; Ordered By: Pb Su 4. Eat foods that are high in calcium. Status: Complete Done: 97Wer1465 03:25PM Ordered; For: Osteoarthritis; Ordered By: Pb Su 5. Rest your wrist as much as possible. Status: Complete Done: 70Bvp7548 03:25PM Ordered; For: Osteoarthritis; Ordered By: Pb Su 6. Some eating tips that can help you lose weight. Status: Complete Done: 38Nok0154 03:25PM Ordered; For: Osteoarthritis; Ordered By: Pb Su 7. Stretch and warm up your muscles during the first 10 minutes , then cool down your muscles for the last 10 minutes of exercise. Status: Complete Done: 12Qac3507 03:25PM Ordered; For: Osteoarthritis; Ordered By: Pb Su 8. There are many exercise options for seniors. Status: Complete Done: 92Ofi8134 03:25PM Ordered; For: Osteoarthritis; Ordered By: Pb Su 9. We recommend that you get 400 IU of Vitamin D each day. Status: Complete Done: 25Eof0792 03:25PM Ordered; For: Osteoarthritis; Ordered By: Pb Su 10. We recommend you perform exercises to strengthen and stretch your muscles Status: Complete Done: 45Jqt5548 03:25PM Ordered; For: Osteoarthritis; Ordered By: Pb Su 11. We suggest that you do gentle exercise that does not stress your joints. Status: Complete Done: 14Sew9225 03:25PM Ordered; For: Osteoarthritis; Ordered By: Pb Su 12. We would like you to start exercises to build muscle strength and keep your joints loose. Status: Complete Done: 89Alt5611 03:25PM Ordered; For: Osteoarthritis; Ordered By: Pb Su 13. Wear shoes that provide good support for your feet. Status: Complete Done: 28Nut5749 03:25PM Ordered; For: Osteoarthritis; Ordered By: Pb Su 14. You may slowly resume your normal level of activity once you feel better. Status: Complete Done: 60Ijx8376 03:25PM Ordered; For: Osteoarthritis; Ordered By: Pb Su Signatures Electronically signed by : Pb Su M.D.; Jan 17 2014 3:26PM TELEHEALTH DIRECTOR (Author) HEALTH DIRECTOR documented in this encounter Plan of Treatment Not on file documented as of this encounter Visit Diagnoses Not on filedocumented in this encounter Care Teams Sack Cleaning Hand Relationship Specialty Start Date End Date Pb Su MD [address] [place], [place] [id number] PCP - General 04/26/16 Pb Su MD [address] [place] [address] PCP - General 05/19/15 04/25/16 Pb Su MD [address] [place] [address] PCP - General 12/07/14 05/18/15 Pb Su MD [address] [place] [address] PCP - General 12/05/14 12/06/14 Pb Su MD [address] [place], [place] [address] PCP - General 03/23/14 12/04/14 Pb Su MD [address] [place], [place] [address] PCP - General 03/21/14 03/22/14 Pb Su MD [address] [place] [address] PCP - General 03/16/14 03/20/14 Pb Su MD [address] [place] [address] PCP - General 03/14/14 03/15/14 Pb Su MD [address] [place] [address] PCP - General 03/09/14 03/13/14 Pb Su MD [address] [place] [address] PCP - General 03/02/14 03/08/14 Pb Su MD [address] [place], [place] [address] PCP - General 02/28/14 03/01/14 Pb Su MD [address] [place], [place] [address] PCP - General 02/25/14 02/27/14 Pb Su MD [address] [place], [place] [address] PCP - General 02/23/14 02/24/14 Pb Su MD [address] [place], [place] [address] PCP - General 02/17/14 02/22/14 Pb Su MD [address] [place], [place] [address] PCP - General 11/02/13 02/16/14 documented as of this encounter
--- OUTSIDE RECORDS SUMMARY | 2024-11-14 22:23 | XMS_ITS | Encounter Summary ---
Author Organization [facility] Address [address] [place] [address]. [place], [place] [phone] [place] [address] Care Team Providers Care Log Turner Name Role Phone Pb Su MD Primary Care Provider [phone] Pb Su MD Primary Care Provider Pb Su MD Primary Care Provider Encounter Details Date Type Department Care Team (Latest Contact Info) Description 12/10/2014 Abstract [facility] Social [...] 30-100 POTENTIAL INTOXICATION >100 TESTING PERFORMED AT [facility], A MEMBER OF [facility]. documented in this encounter Plan of Treatment Not on file documented as of this encounter Visit Diagnoses Not on filedocumented in this encounter Care Teams Log Turner Relationship Specialty Start Date End Date Pb Su MD [address] [place], [place] [phone] PCP - General 04/26/16 Pb Su MD [address] [place], [place] [phone] PCP - General 05/19/15 04/25/16 Pb Su MD [address] [place], [place] [phone] PCP - General 12/07/14 05/18/15 documented as of this encounter
--- OUTSIDE RECORDS SUMMARY | 2024-11-14 22:23 | XMS_ITS | Encounter Summary ---
Author Organization [facility] Address [address] [place] [address]. [place], [place] [address] [place] [address] Care Team Providers Care Gelatin Maker Utility Name Role Phone Pb Su MD Primary Care Provider [phone]- [phone] Pb Su MD Primary Care Provider Pb Su MD Primary Care Provider Pb Su MD Primary Care Provider [phone] Pb Su MD Primary Care Provider Encounter Details Date Type Department Care Team (Latest Contact Info) Description 03/28/2014 Abstract [facility] Social [...] Gi Aquino, ; Mar 28 2014 4:27PM GUEST EXPERIENCE CAPTAIN (Author) Electronically signed by : Gi Aquino, ; Mar 29 2014 10:39AM GUEST EXPERIENCE CAPTAIN (Author) T EXPERIENCE CAPTAIN documented in this encounter Plan of Treatment Not on file documented as of this encounter Visit Diagnoses Not on filedocumented in this encounter Care Teams Gelatin Maker Utility Relationship Specialty Start Date End Date Pb Su MD [address] [place] [address] PCP - General 04/26/16 Pb Su MD [address] [place], [place] [address] PCP - General 05/19/15 04/25/16 Pb Su MD [address] [place] [address] PCP - General 12/07/14 05/18/15 Pb Su MD [address] [place], [place] [address] PCP - General 12/05/14 12/06/14 Pb Su MD [address] [place], [place] [address] PCP - General 03/23/14 12/04/14 documented as of this encounter
--- OUTSIDE RECORDS SUMMARY | 2024-11-14 22:23 | XMS_ITS | Encounter Summary ---
Author Organization [facility] Address [address] [place] [address]. [place], [place] [address] [place] [address] Care Team Providers Care Senior Principal Name Role Phone Pb Su MD Primary [...] (Late st Contact Info) Description 11/02/2013 Abstract [facility] [address] [place] [address] Pb Su MD [address] [place] [address] Social History Tobacco Use Types Packs/Day Years [...] hyperlipidemia documented in this encounter Care Teams Senior Principal Relationship Specialty Start Date End Date Pb Su MD [address] [place], [place] [address] PCP - General 04/26/16 Pb Su MD [address] [place] [address] PCP - General 05/19/15 04/25/16 Pb Su MD [address] [place], [place] [address] PCP - General 12/07/14 05/18/15 Pb Su MD [address] [place], [place] [address] PCP - General 12/05/14 12/06/14 Pb Su MD [address] [place], [place] [address] PCP - General 03/23/14 12/04/14 Pb Su MD [address] [place] [address] PCP - General 03/21/14 03/22/14 Pb Su MD [address] [place], [place] [address] PCP - General 03/16/14 03/20/14 Pb Su MD [address] [place] [address] PCP - General 03/14/14 03/15/14 Pb Su MD [address] [place], [place] [address] PCP - General 03/09/14 03/13/14 Pb Su MD [address] [place], [place] [address] PCP - General 03/02/14 03/08/14 Pb Su MD [address] [place], [place] [address] PCP - General 02/28/14 03/01/14 Pb Su MD [address] [place], [place] [address] PCP - General 02/25/14 02/27/14 Pb Su MD [address] [place], [place] [address] PCP - General 02/23/14 02/24/14 Pb Su MD [address] [place], [place] [address] PCP - General 02/17/14 02/22/14 Pb Su MD [address] [place], [place] [address] PCP - General 11/02/13 02/16/14 documented as of this encounter
--- OUTSIDE RECORDS SUMMARY | 2024-11-14 22:23 | XMS_ITS | Encounter Summary ---
Author Organization [facility] Address [address] [place] [address]. [place], [place] [address] [place] [address] Care Team Providers Care Nozzle Tender Name Role Phone Pb Su MD Primary Care Provider +1- [phone] Pb Su MD Primary Care Provider +1- [phone] Pb Su MD Primary Care Provider Pb Su MD Primary Care Provider Encounter Details Date Type Department Care Team (Latest Contact Info) Description 12/06/2014 Abstract [facility] Medical Group Social [...] CEDILLO ORDERING MD: PB SU MD ACCT: [id number] ADMIT/SERVICE DATE: 12/05/14 DISCHARGE DATE: : 1965 PT TYPE: REG CLI SEX: M ORD SITE: [facility] IMAGING STUDY DATE REPORT # PROCEDURE CODE PROCEDURE 12/05/14 [id number] [id number] XR CHEST 2 VIEW EXTORDERID [id number] ACCESSION NUMBER [id number] CHART DOCUMENT IMPRESSION: MILD BRONCHITIS AND POSSIBLE [...] 12/06/2014 12:36 P ROLANDA LANCASTER M.D. P #[id number] P/MA CC: PB SU M.D. documented in this encounter Plan of Treatment Not on file documented as of this encounter Visit Diagnoses Not on filedocumented in this encounter Care Teams Nozzle Tender Relationship Specialty Start Date End Date Pb Su MD [address] [place] [address] PCP - General 04/26/16 Pb Su MD [address] [place], [place] [address] PCP - General 05/19/15 04/25/16 Pb Su MD [address] [place] [address] PCP - General 12/07/14 05/18/15 Pb Su MD [address] [place] [address] PCP - General 12/05/14 12/06/14 documented as of this encounter
--- OUTSIDE RECORDS SUMMARY | 2024-11-14 22:23 | XMS_ITS | Encounter Summary ---
Author Organization [facility] Address [address] [place] [address]. [place] [address] [place] [address] Care Team Providers Care Windows Server Architect Name Role Phone Pb Su MD Primary Care Provider [phone] Pb Su MD Primary Care Provider Pb Su MD Primary Care Provider Pb Su MD Primary Care Provider Pb Su MD Primary Care Provider Encounter Details Date Type Department Care Team (Late st Contact Info) Description 2014 Abstract [facility] [address] [place] [address] Pb Su MD [address] [place] [address] Social History Tobacco Use Types [...] therapy documented in this encounter Care Teams Windows Server Architect Relationship Specialty Start Date End Date Pb Su MD [address] [place] [address] PCP - General 04/26/16 Pb Su MD [address] [place] [address] PCP - General 05/19/15 04/25/16 Pb Su MD [address] [place] [address] PCP - General 12/07/14 05/18/15 Pb Su MD [address] [place] [address] PCP - General 12/05/14 12/06/14 Pb Su MD [address] [place], [place] [address] PCP - General 03/23/14 12/04/14 documented as of this encounter
--- OUTSIDE RECORDS SUMMARY | 2024-11-14 22:23 | XMS_ITS | Encounter Summary ---
Author Organization [facility] Address [address] [place] [address]. [place], [place] [address] [place] [address] Care Team Providers Care Lieutenant Fire Fighter Name Role Phone Pb Su MD Primary [...] Su MD Primary Care Provider [phone] Encounter Details Date Type Department Care Team (Latest Contact Info) Description 09/30/2013 [facility] Pb Su MD [address] [place] [address] Social History Tobacco Use Types Packs/Day Years [...] HAND LT 3V Routine 09/30/2013 8:48 AM RESEARCH AFFILIATE documented in this encounter Results * XR HAND LT 3V (09/30/2013 8:48 AM RESEARCH AFFILIATE) Anatomical Region Laterality Modality Hand Radiographic Clary ging 09/30/2013 8:48 AM RESEARCH AFFILIATE 09/30/2013 8:48 AM RESEARCH AFFILIATE Narrative 09/30/2013 10:51 AM RESEARCH AFFILIATE AVA CEDILLO JR MD: PB SU MD ?? ACCT: [id number] ?? : 1965 PT TYPE: REG CLI ?? SEX: M ORD SITE: [facility] OUTPT IMAGING ? STUDY DATE REPORT # PROCEDURE CODE PROCEDURE ?? 09/30/13 [id number] XR HAND MINIMUM 3 VIEW LT ? EXTORDERID ? [id number] ? ACCESSION NUMBER ?? [id number] ?CHART DOCUMENT ? IMPRESSION: ? NO ACUTE [...] HENDRICKSON M.D. ? D: ??09/30/2013 ??8:56 A ??#[id number] ?? T: ??09/30/2013 ??9:15 A/MA ? CC: ?PB SU M.D. ? Radiology image is available. Click on Image Link above. Procedure Note Vahe Chatterjee MD - 09/17/2018 AVA CEDILLO JR MD: PB SU MD ACCT: [id number] : 1965 PT TYPE: REG CLI SEX: M ORD SITE: [facility] OUTPT IMAGING STUDY DATE REPORT # PROCEDURE CODE PROCEDURE 09/30/13 [id number] XR HAND MINIMUM 3 VIEW LT EXTORDERID [id number] ACCESSION NUMBER [id number] CHART DOCUMENT IMPRESSION: NO ACUTE OSSEOUS ABNORMALITIES. NO SIGNIFICANT FEATURES OF ARTHRITIS. HISTORY: PAIN IN BOTH HANDS X3 WEEKS. HISTORY OF ARTHRITIS. THREE VIEWS LEFT HAND FINDINGS: NO ACUTE FRACTURE OR DISLOCATION. JOINT SPACES ARE PRESERVED. NO DESTRUCTIVE OSSEOUS, LYTIC, OR SCLEROTIC LESION. NO RADIOPAQUEFOREIGN BODIES. ELECTRONICALLY SIGNED BY: KEL HENDRICKSON M.D. 09/30/2013 10:50 KEL HENDRICKSON M.D. A #[id number] A/MATILDE CC: PB SU M.D. Radiology image is available. Click on Image Link above. us Pb Su MD GENERAL IMAGING Final Resul t documented in this encounter Visit Diagnoses Not on filedocumented in this encounter Care Teams Lieutenant Fire Fighter Relationship Specialty Start Date End Date Pb Su MD [address] [place] [address] PCP - General 04/26/16 Pb Su MD [address] [place] [address] PCP - General 05/19/15 04/25/16 Pb Su MD [address] [place] [address] PCP - General 12/07/14 05/18/15 Pb Su MD [address] [place] [address] PCP - General 12/05/14 12/06/14 Pb Su MD [address] [place], [place] 93[address]89 PCP - General 03/23/14 12/04/14 Pb Su MD [address] [place], [place] [address] PCP - General 03/21/14 03/22/14 Pb Su MD [address] [place] [address] PCP - General 03/16/14 03/20/14 Pb Su MD [address] [place], [place] [address] PCP - General 03/14/14 03/15/14 Pb Su MD [address] [place] [address] PCP - General 03/09/14 03/13/14 Pb Su MD [address] [place], [place] [address] PCP - General 03/02/14 03/08/14 Pb Su MD [address] [place] [address] PCP - General 02/28/14 03/01/14 Pb Su MD [address] [place] [address] PCP - General 02/25/14 02/27/14 Pb Su MD [address] [place] [address] PCP - General 02/23/14 02/24/14 Pb Su MD [address] [place] 65[address] PCP - General 02/17/14 02/22/14 Pb Su MD [address] [place], [place] 68[address]39 PCP - General 11/02/13 02/16/14 Pb Su MD [address] [place], [place] 4[address] PCP - General 09/30/13 11/01/13 documented as of this encounter
--- OUTSIDE RECORDS SUMMARY | 2024-11-14 22:23 | XMS_ITS | Encounter Summary ---
Author Organization [facility] Address [address] [place] [address]. [place], [place] [address] [place] [address] Care Team Providers Care Rotary Rig Engine Operator Name Role Phone Pb Su MD [...] Team (Latest Contact Info) Description 11/03/2013 Abstract [facility] Medical Group Social History Tobacco Use Types Packs/Day Years Used Date Smoking Tobacco: Never Assessed Sex and Gender Information Value Date Recorded Sex Assigned at Not on file Legal Sex Male 7:22 PM CDT Gender Identity Not on file Sexual Orientation Not on file documented as of this encounter Progress Notes * Pb Su MD - 11/03/2013 3:09 PM CST [...] Kinase ( CK ) ( CPK ) [id number] 09:55AM Pb Su Test Name Result Flag Reference Creatine Kinase (CK) 140 IU/L 39-308 Lipid Profile 35Vyb9548 09:55AM Pb Su Test Name Result Flag [...] --- HDL <40 --- LDL >=160 >=130 CARE CENTER MANAGER documented in this encounter Plan of Treatment Not on file documented as of this encounter Visit Diagnoses Not on filedocumented in this encounter Care Teams Rotary Rig Engine Operator Relationship Specialty Start Date End Date Pb Su MD [address] [place] [address] PCP - General 04/26/16 Pb Su MD [address] [place], [place] [address] PCP - General 05/19/15 04/25/16 Pb Su MD [address] [place] [address] PCP - General 12/07/14 05/18/15 Pb Su MD [address] [place], [place] [address] PCP - General 12/05/14 12/06/14 Pb Su MD [address] [place] [address] PCP - General 03/23/14 12/04/14 Pb Su MD [address] [place] [address] PCP - General 03/21/14 03/22/14 Pb Su MD [address] [place] [address] PCP - General 03/16/14 03/20/14 Pb Su MD [address] [place] [address] PCP - General 03/14/14 03/15/14 Pb Su MD [address] [place] [address] PCP - General 03/09/14 03/13/14 Pb Su MD [address] [place] [address] PCP - General 03/02/14 03/08/14 Pb Su MD [address] [place] 94[address] PCP - General 02/28/14 03/01/14 Pb Su MD [address] [place] [address] PCP - General 02/25/14 02/27/14 Pb Su MD [address] [place] [address] PCP - General 02/23/14 02/24/14 Pb Su MD [address] [place] [address] PCP - General 02/17/14 02/22/14 Pb Su MD [address] [place] [address] PCP - General 11/02/13 02/16/14 documented as of this encounter
--- OUTSIDE RECORDS SUMMARY | 2024-11-14 22:23 | XMS_ITS | Encounter Summary ---
Author Organization [facility] Address [address] [place] [address]. [place], [place] [address] [place] [address] Care Team Providers Care Remote Broadcast Technician Name Role Phone Pb Su MD [...] (Late st Contact Info) Description 02/03/2014 Abstract [facility] Medical Group Multispecialty Care - [facility] [address] [place] [address] Seun Mak DO [address] [place] [address] Social History Tobacco Use Types Packs/Day Years [...] future should the need arise. EVON/ROSAURA/marian Job [id number] Active Problems 1. Arm numbness left (782.0) [...] 1 TABLET BY MOUTH AT BEDTIME; Therapy: 64Orh5983 to (Evaluate:24Jun2014); Last Rx:[id number] Ordered 2. Claritin 10 MG Oral Tablet; Therapy: (Recorded:30Flb0603) to Recorded 3. Cyclobenzaprine HCl - 10 MG Oral Tablet; TAKE 1 TABLET 3 TIMES DAILY NEEDED; Therapy: 19Lww1156 to (Evaluate:26Feb2014) Requested for: 10Sef7334; Last Rx:[id number] Ordered 4. TraMADol HCl - 50 MG Oral Tablet; TAKE 1 TABLET 3 TIMES DAILY; Therapy: 55Esg8274 to (Evaluate:06Feb2014); Last Rx:[id number] Ordered Allergies 1. Acetaminophen-Codeine #3 TABS Signatures Electronically signed by : Seun Mak D.O.; Feb 03 2014 4:03PM BRUSHER AND SHEARER (Author) Electronically signed by : Seun Mak D.O.; Feb 16 2014 8:23AM BRUSHER AND SHEARER (Author) documented in this encounter Plan of Treatment Not on file documented as of this encounter Visit Diagnoses Not on filedocumented in this encounter Care Teams Remote Broadcast Technician Relationship Specialty Start Date End Date Pb Su MD [address] [place], [place] [address] PCP - General 04/26/16 Pb Su MD [address] [place], [place] [address] PCP - General 05/19/15 04/25/16 Pb Su MD [address] [place] [address] PCP - General 12/07/14 05/18/15 Pb Su MD [address] [place] [address] PCP - General 12/05/14 12/06/14 Pb Su MD [address] [place] [address] PCP - General 03/23/14 12/04/14 Pb Su MD [address] [place] [address] PCP - General 03/21/14 03/22/14 Pb Su MD [address] [place] [address] PCP - General 03/16/14 03/20/14 Pb Su MD [address] [place] [address] PCP - General 03/14/14 03/15/14 Pb Su MD [address] [place], [place] [address] PCP - General 03/09/14 03/13/14 Pb Su MD [address] [place], [place] [address] PCP - General 03/02/14 03/08/14 Pb Su MD [address] [place] [address] PCP - General 02/28/14 03/01/14 Pb uS MD [address] [place], [place] [address] PCP - General 02/25/14 02/27/14 Pb Su MD [address] [place] [address] PCP - General 02/23/14 02/24/14 Pb Su MD [address] [place] [address] PCP - General 02/17/14 02/22/14 Pb Su MD [address] [place] [address] PCP - General 11/02/13 02/16/14 documented as of this encounter
--- OUTSIDE RECORDS SUMMARY | 2024-11-14 22:24 | XMS_ITS | Encounter Summary ---
Author Organization [facility] Address [address] [place] [address]. [place], [place] [address] [place] [address] Care Team Providers Care Bead Maker Name Role Phone Pb Su MD [...] Pb Su MD Primary Care Provider [phone] Pb Su MD Primary Care Provider +1- [phone] Pb Su MD Primary Care Provider +1- [phone] Encounter Details Date Type Department Care Team (Late st Contact Info) Description 09/24/[address] [facility] [address] [place] [address] Marquise Salinas MD Social History Tobacco Use [...] apnea documented in this encounter Care Teams Bead Maker Relationship Specialty Start Date End Date Pb Su MD [address] [place], [place] [address] PCP - General 04/26/16 Pb Su MD [address] [facility], [place] [id number] PCP - General 05/19/15 04/25/16 Pb Su MD [address] [place] [address] PCP - General 12/07/14 05/18/15 Pb Su MD [address] [place], [place] [address] PCP - General 12/05/14 12/06/14 Pb Su MD [address] [place] [address] PCP - General 03/23/14 12/04/14 Pb Su MD [address] [place] [address] PCP - General 03/21/14 03/22/14 Pb Su MD [address] [place] [address] PCP - General 03/16/14 03/20/14 Pb Su MD [address] [place] [address] PCP - General 03/14/14 03/15/14 Pb Su MD [address] [place] [address] PCP - General 03/09/14 03/13/14 Pb Su MD [address] [place] [address] PCP - General 03/02/14 03/08/14 Pb Su MD [address] [place], [place] [address] PCP - General 02/28/14 03/01/14 Pb Su MD [address] [place] [address] PCP - General 02/25/14 02/27/14 bP Su MD [address] [place] [address] PCP - General 02/23/14 02/24/14 Pb Su MD [address] [place] [address] PCP - General 02/17/14 02/22/14 Pb Su MD [address] [place] [address] PCP - General 11/02/13 02/16/14 Pb Su MD [address] [place] [address] PCP - General 09/30/13 11/01/13 Pb Su MD [address] [place] [address] PCP - General 06/10/13 09/29/13 Pb Su MD [address] [place] [address] PCP - General 04/05/13 06/09/13 Pb Su MD [address] [place] [address] PCP - General 09/24/12 04/04/13 documented as of this encounter
--- OUTSIDE RECORDS SUMMARY | 2024-11-14 22:24 | XMS_ITS | Encounter Summary ---
Author Organization [facility] Address [address] [place] [address]. [place], [place] [address] [place] [address] Care Team Providers Care Building Cleaner Name Role Phone Pb Su MD [...] Pb Su MD Primary Care Provider [phone] Pb Su MD Primary Care Provider +1- [phone] Encounter Details Date Type Department Care Team (Latest Contact Info) Description 08/28/2012 Abstract [facility] Medical [...] filedocumented in this encounter Care Teams Building Cleaner Relationship Specialty Start Date End Date Pb Su MD [address] [place], [place] [id number] PCP - General 04/26/16 Pb Su MD [address] [place] [address] PCP - General 05/19/15 04/25/16 Pb Su MD [address] [place], [place] [address] PCP - General 12/07/14 05/18/15 Pb Su MD [address] [place] [address] PCP - General 12/05/14 12/06/14 Pb Su MD [address] [place] [address] PCP - General 03/23/14 12/04/14 Pb Su MD [address] [place] [address] PCP - General 03/21/14 03/22/14 Pb Su MD [address] [place] [address] PCP - General 03/16/14 03/20/14 Pb Su MD [address] [place] [address] PCP - General 03/14/14 03/15/14 Pb Su MD [address] [place] [address] PCP - General 03/09/14 03/13/14 Pb Su MD [address] [place] [address] PCP - General 03/02/14 03/08/14 Pb Su MD [address] [place] [address] PCP - General 02/28/14 03/01/14 Pb Su MD [address] [place] [address] PCP - General 02/25/14 02/27/14 Pb Su MD [address] [place] [address] PCP - General 02/23/14 02/24/14 Pb Su MD [address] [place] [address] PCP - General 02/17/14 02/22/14 Pb Su MD [address] [place], [place] [address] PCP - General 11/02/13 02/16/14 Pb Su MD [address] [place] [address]759 PCP - General 09/30/13 11/01/13 Pb Su MD [address] [place] [address] PCP - General 06/10/13 09/29/13 Pb Su MD [address] [place] [address] PCP - General 04/05/13 06/09/13 Pb Su MD [address] [place] [address] PCP - General 09/24/12 04/04/13 Pb Su MD [address] [place] [address] PCP - General 06/11/12 09/23/12 documented as of this encounter
--- OUTSIDE RECORDS SUMMARY | 2024-11-14 22:24 | XMS_ITS | Encounter Summary ---
Author Organization [facility] Address [address] [place] [address]. [place], [place] [address] [place] [address] Care Team Providers Care Adhesive Sprayer Name Role Phone Pb Su MD Primary [...] Pb Su MD Primary Care Provider [phone] Encounter Details Date Type Department Care Team (Late st Contact Info) Description 06/10/[address] [facility] [address] [place] [address] Pb Su MD [address] [place], [place] [address] Social History Tobacco Use Types Packs/Day Years [...] fatigue documented in this encounter Care Teams Adhesive Sprayer Relationship Specialty Start Date End Date Pb Su MD [address] [place] [address] PCP - General 04/26/16 Pb Su MD [address] [place], [place] [address] PCP - General 05/19/15 04/25/16 Pb Su MD [address] [place], [place] [address] PCP - General 12/07/14 05/18/15 Pb Su MD [address] [place] [address] PCP - General 12/05/14 12/06/14 Pb Su MD [address] [place] [address] PCP - General 03/23/14 12/04/14 Pb Su MD [address] [place] [address] PCP - General 03/21/14 03/22/14 Pb Su MD [address] [place] [address] PCP - General 03/16/14 03/20/14 Pb Su MD [address] [place] [address] PCP - General 03/14/14 03/15/14 Pb Su MD [address] [place] [address] PCP - General 03/09/14 03/13/14 Pb Su MD [address] [place] [address] PCP - General 03/02/14 03/08/14 Pb Su MD [address] [place] [address] PCP - General 02/28/14 03/01/14 Pb Su MD [address] [place] [address] PCP - General 02/25/14 02/27/14 Pb Su MD [address] [place] [address] PCP - General 02/23/14 02/24/14 Pb Su MD [address] [place] [address]409 PCP - General 02/17/14 02/22/14 Pb Su MD [address] [place] [address] PCP - General 11/02/13 02/16/14 Pb Su MD [address] [place], [place] [address] PCP - General 09/30/13 11/01/13 Pb Su MD [address] [place], [place] [address] PCP - General 06/10/13 09/29/13 documented as of this encounter
--- OUTSIDE RECORDS SUMMARY | 2024-11-14 22:24 | XMS_ITS | Encounter Summary ---
Author Organization [facility] Address [address] [place] [address]. [place], [place] [address] [place] [address] Care Team Providers Care Financial Services Auditor Name Role Phone Pb Su MD Primary Care Provider [phone] Pb Su MD Primary Care Provider Pb [...] Pb Su MD Primary Care Provider [phone] Pb Su MD Primary Care Provider [phone] Pb Su MD Primary Care Provider [phone] Encounter Details Date Type Department Care Team (Late st Contact Info) Description 10/30/2012 Abstract [facility] Medical Group Multispecialty Care - [facility] [address] [place] [address] Seun MakDO [address] [place] [address] [place] [address] Social History Tobacco Use Types Packs/Day Years [...] Tablet; TAKE 1 TABLET DAILY DIRECTED; Therapy: 30Mnm0226 to (Evaluate:14Feb2013); Last Rx:[id number] 2. Claritin 10 MG Oral Tablet; TAKE [...] Views: AP and lateral views and from [place] of the right knee. Findings: there is no advanced arthritis. No acute fractures noted. Knee MRI (Brief): MRI from [place] dated August 28, 2010 reveals a fissure [...] Mak D.O.; Oct 30 2012 9:22AM (Author) MBLY LEADER documented in this encounter Plan of Treatment Not on file documented as of this encounter Visit Diagnoses Not on filedocumented in this encounter Care Teams Financial Services Auditor Relationship Specialty Start Date End Date Pb Su MD [address] [place] [address] PCP - General 04/26/16 Pb Su MD [address] [place] [address] PCP - General 05/19/15 04/25/16 Pb Su MD [address] [place] [address] PCP - General 12/07/14 05/18/15 Pb uS MD [address] [place] [address] PCP - General 12/05/14 12/06/14 Pb Su MD [address] [place] [address] PCP - General 03/23/14 12/04/14 Pb Su MD [address] [place], [place] [address]509 PCP - General 03/21/14 03/22/14 Pb Su MD [address] [place] [address] PCP - General 03/16/14 03/20/14 Pb Su MD [address] [place] [address] PCP - General 03/14/14 03/15/14 Pb Su MD [address] [place] [address] PCP - General 03/09/14 03/13/14 Pb Su MD [address] [place], [place] [address] PCP - General 03/02/14 03/08/14 Pb Su MD [address] [place] [address] PCP - General 02/28/14 03/01/14 Pb Su MD [address] [place] [address] PCP - General 02/25/14 02/27/14 Pb Su MD [address] [place] [address] PCP - General 02/23/14 02/24/14 Pb Su MD [address] [place] [address] PCP - General 02/17/14 02/22/14 Pb Su MD [address] [place], [place] [address] PCP - General 11/02/13 02/16/14 Pb Su MD [address] [place] [address] PCP - General 09/30/13 11/01/13 Pb Su MD [address] [place] [address] PCP - General 06/10/13 09/29/13 Pb Su MD [address] [place] [address] PCP - General 04/05/13 06/09/13 Pb Su MD [address] [place] [address] PCP - General 09/24/12 04/04/13 documented as of this encounter
--- OUTSIDE RECORDS SUMMARY | 2024-11-14 22:24 | XMS_ITS | Encounter Summary ---
Author Organization [facility] Address [address] [place] [address]. [place], [place] [address] [place] [address] Care Team Providers Care Cigar Packer And Picker Name Role Phone Pb Su MD Primary Care Provider [phone] Pb Su MD Primary Care Provider Pb [...] Pb Su MD Primary Care Provider +- [phone] Pb Su MD Primary Care Provider [phone] Encounter Details Date Type Department Care Team (Late st Contact Info) Description 04/05/2013 Abstract [facility] [address] [place] [address] Marquise Salinas MD Social History Tobacco Use [...] apnea documented in this encounter Care Teams Cigar Packer And Picker Relationship Specialty Start Date End Date Pb Su MD [address] [place], [place] [address] PCP - General 04/26/16 Pb Su MD [address] [place], [place] [id number] PCP - General 05/19/15 04/25/16 Pb Su MD [address] [place], [place] [address] PCP - General 12/07/14 05/18/15 Pb Su MD [address] [place], [place] [address]699 PCP - General 12/05/14 12/06/14 Pb Su MD [address] [place] [address] PCP - General 03/23/14 12/04/14 Pb Su MD [address] [place] [address] PCP - General 03/21/14 03/22/14 Pb Su MD [address] [place] [address]229 PCP - General 03/16/14 03/20/14 Pb Su MD [address] [place] 6[address]29 PCP - General 03/14/14 03/15/14 Pb Su MD [address] [place] [address] PCP - General 03/09/14 03/13/14 Pb Su MD [address] [place] [address] PCP - General 03/02/14 03/08/14 Pb Su MD [address] [place] [address] PCP - General 02/28/14 03/01/14 Pb Su MD [address] [place] [address] PCP - General 02/25/14 02/27/14 Pb Su MD [address] [place] [address] PCP - General 02/23/14 02/24/14 Pb Su MD [address] [place] [address] PCP - General 02/17/14 02/22/14 Pb Su MD [address] [place] [address] PCP - General 11/02/13 02/16/14 Pb Su MD [address] [place] 80[address]29 PCP - General 09/30/13 11/01/13 Pb Su MD [address] [place] [address]109 PCP - General 06/10/13 09/29/13 Pb Su MD [address] [place], [place] 45[address]99 PCP - General 04/05/13 06/09/13 documented as of this encounter
--- OUTSIDE RECORDS SUMMARY | 2024-11-14 22:24 | XMS_ITS | Encounter Summary ---
Author Organization [facility] Address [address] [place] [address]. [place], [place] [address] [place] [address] Care Team Providers Care Professor Of Management Name Role Phone Pb Su MD Primary Care Provider [phone] Pb Su MD Primary Care Provider Pb [...] Pb Su MD Primary Care Provider +1- [phone] Pb Su MD Primary Care Provider +1- [phone] Encounter Details Date Type Department Care Team (Latest Contact Info) Description 02/24/2013 Abstract [facility] Pb Su MD [address] [place], [place] [id number] Social History Tobacco Use Types Packs/Day Years [...] on filedocumented in this encounter Care Teams Professor Of Management Relationship Specialty Start Date End Date Pb Su MD [address] [place], [place] [id number] PCP - General 04/26/16 Pb Su MD [address] [place] [address] PCP - General 05/19/15 04/25/16 Pb Su MD [address] [place] [id number] PCP - General 12/07/14 05/18/15 Pb Su MD [address] [place] [id number] PCP - General 12/05/14 12/06/14 Pb Su MD [address] [place] [address] PCP - General 03/23/14 12/04/14 Pb Su MD [address] [place] [address] PCP - General 03/21/14 03/22/14 Pb Su MD [address] [place], [place] [address]69 PCP - General 03/16/14 03/20/14 Pb Su MD [address] [place] 30[address]79 PCP - General 03/14/14 03/15/14 Pb Su MD [address] [place] 9[address]19 PCP - General 03/09/14 03/13/14 Pb Su MD [address] [place] 8[address]29 PCP - General 03/02/14 03/08/14 Pb Su MD [address] [place] 5[address] PCP - General 02/28/14 03/01/14 Pb Su MD [address] [place] [address] PCP - General 02/25/14 02/27/14 Pb Su MD [address] [place] [address] PCP - General 02/23/14 02/24/14 Pb Su MD [address] [place] [address] PCP - General 02/17/14 02/22/14 Pb Su MD [address] [place] [address] PCP - General 11/02/13 02/16/14 Pb Su MD [address] [place] [address] PCP - General 09/30/13 11/01/13 Pb Su MD [address] [place] 35[address]49 PCP - General 06/10/13 09/29/13 Pb Su MD [address] [place] [address] PCP - General 04/05/13 06/09/13 Pb Su MD [address] [place] [address] PCP - General 09/24/12 04/04/13 documented as of this encounter
--- OUTSIDE RECORDS SUMMARY | 2024-11-14 22:24 | XMS_ITS | Encounter Summary ---
Author Organization [facility] Address [address] [place] [address]. [place], [place] [address] [place] [address] Care Team Providers Care Wagon Driver Name Role Phone Pb Su MD [...] Pb Su MD Primary Care Provider [phone] Pb Su MD Primary Care Provider [phone] Pb Su MD Primary Care Provider [phone] Encounter Details Date Type Department Care Team (Late st Contact Info) Description 01/04/2013 Abstract [facility] Multispecialty Care - [facility] [address] [facility] [place] [address] Seun Mak DO [address] [facility] [place] [address] Social History Tobacco Use Types Packs/Day Years Used Date Smoking Tobacco: Never Assessed Sex and Gender Information Value Date Recorded Sex Assigned at Not on file Legal Sex Male 7:22 PM CDT Gender Identity Not on file Sexual Orientation Not on file documented as of this encounter Last Filed Vital Signs Vital Sign Reading Time Taken Comments Blood Pressure 120/80 01/04/2013 3:38 PM BOX COVERING MACHINE OPERATOR Pulse - - Temperature - - Respiratory Rate - - Oxygen Saturation - - Inhaled Oxygen Concentration - - Weight 97.5 kg (215 lb) 01/04/2013 3:38 PM BOX COVERING MACHINE OPERATOR Height 182.9 cm (6') 01/04/2013 3:38 PM BOX COVERING MACHINE OPERATOR Body Mass Index 29.16 01/04/2013 3:38 PM BOX COVERING MACHINE OPERATOR documented in this encounter Progress Notes [...] Oral Tablet; TAKE 2 TABLETS DAILY; Therapy: [id number] to (Evaluate:28Jan2013) Requested for: 04Dec2012; Last Rx:[id number] Allergies 1. Acetaminophen-Codeine #3 TABS Vitals [id number] 03:38PM Systolic 120 Diastolic 80 BMI Calculated 29.12 BSA Calculated 2.2 Height 6 ft Weight 215 lb Signatures Electronically signed by : Seun Mak D.O.; Jan 04 2013 6:05PM (Author) COVERING MACHINE OPERATOR documented in this encounter Plan of Treatment Not on file documented as of this encounter Visit Diagnoses Not on filedocumented in this encounter Care Teams Wagon Driver Relationship Specialty Start Date End Date Pb Su MD [address] [place], [place] 85[address] PCP - General 04/26/16 Pb Su MD [address] [place], [place] 25[address] PCP - General 05/19/15 04/25/16 Pb Su MD [address] [place], [place] [address] PCP - General 12/07/14 05/18/15 Pb Su MD [address] [place], [place] [address] PCP - General 12/05/14 12/06/14 Pb Su MD [address] [place], [place] 8[address] PCP - General 03/23/14 12/04/14 Pb Su MD [address] [place] [address] PCP - General 03/21/14 03/22/14 Pb Su MD [address] [place] [address] PCP - General 03/16/14 03/20/14 Pb Su MD [address] [place] [address]449 PCP - General 03/14/14 03/15/14 Pb Su MD [address] [place] 0[address]19 PCP - General 03/09/14 03/13/14 Pb Su MD [address] [place] [address] PCP - General 03/02/14 03/08/14 Pb Su MD [address] [place] 664089 PCP - General 02/28/14 03/01/14 Pb Su MD [address] [place] [address]119 PCP - General 02/25/14 02/27/14 Pb Su MD [address] [place] 5[address]39 PCP - General 02/23/14 02/24/14 Pb Su MD [address] [place] 250949 PCP - General 02/17/14 02/22/14 Pb Su MD [address] [place] [address]399 PCP - General 11/02/13 02/16/14 Pb Su MD [address] [place] 86[address]49 PCP - General 09/30/13 11/01/13 Pb Su MD [address] [place] [address] PCP - General 06/10/13 09/29/13 Pb Su MD [address] [place] [address]69 PCP - General 04/05/13 06/09/13 Pb Su MD [address] [place], [place] [address] PCP - General 09/24/12 04/04/13 documented as of this encounter
--- OUTSIDE RECORDS SUMMARY | 2024-11-14 22:24 | XMS_ITS | Encounter Summary ---
Author Organization [facility] Address [address] [place] [address]. [place], [place] [address] [place] [address] Care Team Providers Care Chief Station Engineer Name Role Phone Pb Su MD [...] Team (Latest Contact Info) Description 06/11/2012 Abstract [facility] Social History Tobacco Use [...] filedocumented in this encounter Care Teams Chief Station Engineer Relationship Specialty Start Date End Date Pb Su MD [address] [place], [place] [address] PCP - General 04/26/16 Pb Su MD [address] [place] [address]999 PCP - General 05/19/15 04/25/16 Pb Su MD [address] [place] 8[address]709 PCP - General 12/07/14 05/18/15 Pb Su MD [address] [place] 29[address]69 PCP - General 12/05/14 12/06/14 Pb Su MD [address] [place] [address] PCP - General 03/23/14 12/04/14 Pb Su MD [address] [place] 196319 PCP - General 03/21/14 03/22/14 Pb Su MD [address] [place] [address]199 PCP - General 03/16/14 03/20/14 Pb Su MD [address] [place] [address] PCP - General 03/14/14 03/15/14 Pb Su MD [address] [place] 362339 PCP - General 03/09/14 03/13/14 Pb Su MD [address] [place] 14[address] PCP - General 03/02/14 03/08/14 Pb Su MD [address] [place] [address]329 PCP - General 02/28/14 03/01/14 Pb Su MD [address] [place] [address] PCP - General 02/25/14 02/27/14 Pb Su MD [address] [place] 7[address]29 PCP - General 02/23/14 02/24/14 Pb Su MD [address] [place] [address]39 PCP - General 02/17/14 02/22/14 Pb Su MD [address] [place] 08[address]99 PCP - General 11/02/13 02/16/14 Pb Su MD [address] [place] 43[address]79 PCP - General 09/30/13 11/01/13 Pb Su MD [address] [place] 7[address]99 PCP - General 06/10/13 09/29/13 Pb Su MD [address] [place] 45[address]89 PCP - General 04/05/13 06/09/13 Pb Su MD [address] [place] [address] PCP - General 09/24/12 04/04/13 Pb Su MD [address] [place] [address] PCP - General 06/11/12 09/23/12 documented as of this encounter
--- OUTSIDE RECORDS SUMMARY | 2024-11-14 22:24 | XMS_ITS | Encounter Summary ---
Author Organization [facility] Address [address] [place] [address]. [place], [place] [address] [place] [address] Care Team Providers Care Motor Setter Name Role Phone Pb Su MD [...] Pb Su MD Primary Care Provider [phone] Pb Su MD Primary Care Provider [phone] Pb Su MD Primary Care Provider [phone] Encounter Details Date Type Department Care Team (Late st Contact Info) Description 02/01/2013 Abstract [facility] Medical Group Multispecialty Care - [facility] [address] [place] [address] Seun Mak DO [address] [place] [address] Social History Tobacco Use Types Packs/Day Years [...] Mak D.O.; Feb 01 2013 7:32PM (Author) T SECONDARY EDUCATION INSTRUCTOR documented in this encounter Plan of Treatment Not on file documented as of this encounter Visit Diagnoses Not on filedocumented in this encounter Care Teams Motor Setter Relationship Specialty Start Date End Date Pb Su MD [address] [place], [place] 28260[address] PCP - General 04/26/16 Pb Su MD [address] [place], [place] 32294269 PCP - General 05/19/15 04/25/16 Pb Su MD [address] [place], [place] [address]22[address] PCP - General 12/07/14 05/18/15 Pb Su MD [address] [place], [place] 201[address] PCP - General 12/05/14 12/06/14 Pb Su MD [address] [place], [place] [address] PCP - General 03/23/14 12/04/14 Pb Su MD [address] [place] [address] PCP - General 03/21/14 03/22/14 Pb Su MD [address] [place] 164529 PCP - General 03/16/14 03/20/14 Pb Su MD [address] [place], [place] 125739 PCP - General 03/14/14 03/15/14 Pb Su MD [address] [place] 44[address]89 PCP - General 03/09/14 03/13/14 Pb Su MD [address] [place] [address] PCP - General 03/02/14 03/08/14 Pb Su MD [address] [place] [address] PCP - General 02/28/14 03/01/14 Pb uS MD [address] [place] [address] PCP - General 02/25/14 02/27/14 Pb Su MD [address] [place] [address] PCP - General 02/23/14 02/24/14 Pb Su MD [address] [place] 250429 PCP - General 02/17/14 02/22/14 Pb Su MD [address] [place] [address] PCP - General 11/02/13 02/16/14 Pb Su MD [address] [place] [address]759 PCP - General 09/30/13 11/01/13 Pb Su MD [address] [place] [address] PCP - General 06/10/13 09/29/13 Pb Su MD [address] [place] [address]559 PCP - General 04/05/13 06/09/13 Pb Su MD [address] [place], [place] [address] PCP - General 09/24/12 04/04/13 documented as of this encounter
--- OUTSIDE RECORDS SUMMARY | 2024-11-14 22:24 | XMS_ITS | Encounter Summary ---
Author Organization [facility] Address [address] [place] [address]. [place], [place] [address] [place] [address] Care Team Providers Care Hands Hanger Name Role Phone Pb Su MD Primary [...] Pb Su MD Primary Care Provider +[phone]- [phone] Pb Su MD Primary Care Provider +1- [phone] Encounter Details Date Type Department Care Team (Late st Contact Info) Description 11/30/[address] [facility] [address] [place] [address] Marquise Salinas MD Social History Tobacco Use [...] apnea documented in this encounter Care Teams Hands Hanger Relationship Specialty Start Date End Date Pb Su MD [address] [place], [place] [address] PCP - General 04/26/16 Pb Su MD [address] [facility], [place] [address] PCP - General 05/19/15 04/25/16 Pb Su MD [address] [place], [place] 8[address] PCP - General 12/07/14 05/18/15 Pb Su MD [address] [place], [place] 455[address] PCP - General 12/05/14 12/06/14 Pb Su MD [address] [place] [address] PCP - General 03/23/14 12/04/14 Pb Su MD [address] [place] [address] PCP - General 03/21/14 03/22/14 Pb Su MD [address] [place] [address] PCP - General 03/16/14 03/20/14 Pb Su MD [address] [place] [address] PCP - General 03/14/14 03/15/14 Pb Su MD [address] [place] [address] PCP - General 03/09/14 03/13/14 Pb Su MD [address] [place] [address]199 PCP - General 03/02/14 03/08/14 Pb Su MD [address] [place] 8[address]289 PCP - General 02/28/14 03/01/14 Pb Su MD [address] [place] [address] PCP - General 02/25/14 02/27/14 Pb Su MD [address] [place] [address] PCP - General 02/23/14 02/24/14 Pb Su MD [address] [place] [address] PCP - General 02/17/14 02/22/14 Pb Su MD [address] [place] [address] PCP - General 11/02/13 02/16/14 Pb Su MD [address] [place] [address] PCP - General 09/30/13 11/01/13 Pb Su MD [address] [place] [address] PCP - General 06/10/13 09/29/13 Pb Su MD [address] [place] 26[address]89 PCP - General 04/05/13 06/09/13 Pb Su MD [address] [place] [address] PCP - General 09/24/12 04/04/13 documented as of this encounter
--- OUTSIDE RECORDS SUMMARY | 2024-11-14 22:24 | XMS_ITS | Encounter Summary ---
Author Organization [facility] Address [address] [place] [address]. [place], [place] [address] [place] [address] Care Team Providers Care Grinder Chipper Name Role Phone Pb Su MD Primary [...] Pb Su MD Primary Care Provider [phone] Pb Su MD Primary Care Provider Pb Su MD Primary Care Provider Encounter Details Date Type Department Care Team (Late st Contact Info) Description 08/10/2012 Abstract [facility] [address] [place], [place] [id number] Pb Su MD [address] [place] [address] Social History Tobacco Use Types [...] hyperlipidemia documented in this encounter Care Teams Grinder Chipper Relationship Specialty Start Date End Date Pb Su MD [address] [place], [place] [address] PCP - General 04/26/16 Pb Su MD [address] [place] [address] PCP - General 05/19/15 04/25/16 Pb Su MD [address] [place] [address] PCP - General 12/07/14 05/18/15 Pb Su MD [address] [place] [address] PCP - General 12/05/14 12/06/14 Pb Su MD [address] [place] [address] PCP - General 03/23/14 12/04/14 Pb Su MD [address] [place], [place] [address]39 PCP - General 03/21/14 03/22/14 Pb Su MD [address] [place] [address] PCP - General 03/16/14 03/20/14 Pb Su MD [address] [place], [place] 97[address] PCP - General 03/14/14 03/15/14 Pb Su MD [address] [place] [address]879 PCP - General 03/09/14 03/13/14 Pb Su MD [address] [place], [place] [address]69 PCP - General 03/02/14 03/08/14 Pb Su MD [address] [place] [address] PCP - General 02/28/14 03/01/14 Pb Su MD [address] [place] [address]479 PCP - General 02/25/14 02/27/14 Pb Su MD [address] [place] [address] PCP - General 02/23/14 02/24/14 Pb Su MD [address] [place], [place] [address] PCP - General 02/17/14 02/22/14 Pb Su MD [address] [place] [address] PCP - General 11/02/13 02/16/14 Pb Su MD [address] [place], [place] [address]69 PCP - General 09/30/13 11/01/13 Pb Su MD [address] [place] [address]779 PCP - General 06/10/13 09/29/13 Pb Su MD [address] [place] [address] PCP - General 04/05/13 06/09/13 Pb Su MD [address] [place] [address] PCP - General 09/24/12 04/04/13 Pb Su MD [address] [place], [place] 20[address] PCP - General 06/11/12 09/23/12 documented as of this encounter
--- OUTSIDE RECORDS SUMMARY | 2024-11-14 22:24 | XMS_ITS | Encounter Summary ---
Author Organization [facility] Address [address] [place] [address]. [place], [place] [address] [place] [address] Care Team Providers Care Ham Smoker Name Role Phone Pb Su MD Primary [...] (Late st Contact Info) Description 07/16/[address] [facility] Medical Group Multispecialty Care - [facility] [address] [place] [address] MakSeun anandDO [address] [place] [address] Social History Tobacco Use Types Packs/Day Years [...] symptoms. All questions were answered. EVON/ROSAURA/mp Job [id number] Active Problems 1. Atrial Fibrillation 427.31 2. [...] 1 TABLET BY MOUTH AT BEDTIME; Therapy: [id number] to (Evaluate:24Jun2014); Last Rx:[id number] 2. Claritin 10 MG Oral Tablet; Therapy: (Recorded:29Jun2013) to Allergies 1. Acetaminophen-Codeine #3 TABS Vitals [id number] 11:17AM BMI Calculated 29.94 BSA Calculated 2.22 Height 6 ft Weight 221 lb Assessment 1. Joint Pain In The Right Knee 719.46 2. Joint Pain, Localized In The Knee 719.46 Plan 1. Betamethasone Sod Phos & Acet 6 (3-3) MG/ML Injection Suspension; INJECT 2 ML Intra-articular; Done: 16Jul2013 12:29PM; Status: COMPLETE 2. Nabumetone 500 MG Oral Tablet; TAKE 2 TABLETS DAILY; Therapy: [id number] to (Evaluate:14Oct2013) Requested for: 16Jul2013; Last Rx:[id number]; Edited Signatures Electronically signed by : Seun Mak D.O.; Jul 16 2013 12:12PM (Author) Electronically signed by : Seun Mak D.O.; Jul 22 2013 6:00PM (Author) SELECTOR documented in this encounter Plan of Treatment Not on file documented as of this encounter Visit Diagnoses Not on filedocumented in this encounter Care Teams Ham Smoker Relationship Specialty Start Date End Date Pb Su MD [address] [place], [place] [address] PCP - General 04/26/16 Pb Su MD [address] '[place], [place] [address] PCP - General 05/19/15 04/25/16 Pb Su MD [address] [place] [address] PCP - General 12/07/14 05/18/15 Pb Su MD [address] [place], [place] [address] PCP - General 12/05/14 12/06/14 Pb Su MD [address] [place] [address] PCP - General 03/23/14 12/04/14 Pb Su MD [address] [place], [place] [address]219 PCP - General 03/21/14 03/22/14 Pb Su MD [address] [place], [place] [address]29 PCP - General 03/16/14 03/20/14 Pb Su MD [address] [place] [address]589 PCP - General 03/14/14 03/15/14 Pb Su MD [address] [place], [place] 29[address]49 PCP - General 03/09/14 03/13/14 Pb Su MD [address] [place] 25[address]59 PCP - General 03/02/14 03/08/14 Pb Su MD [address] [place] [address] PCP - General 02/28/14 03/01/14 Pb Su MD [address] [place], [place] [address] PCP - General 02/25/14 02/27/14 Pb Su MD [address] [place], [place] [address] PCP - General 02/23/14 02/24/14 Pb Su MD [address] [place] [address] PCP - General 02/17/14 02/22/14 Pb Su MD [address] [place] 9[address]29 PCP - General 11/02/13 02/16/14 Pb Su MD [address] [place], [place] 9[address]49 PCP - General 09/30/13 11/01/13 Pb Su MD [address] [place] [address] PCP - General 06/10/13 09/29/13 documented as of this encounter
--- OUTSIDE RECORDS SUMMARY | 2024-11-14 22:24 | XMS_ITS | Encounter Summary ---
Author Organization [facility] Address [address] [place] [address]. [place], [place] [address] [place] [address] Care Team Providers Care Division Chief Name Role Phone Pb Su MD [...] Pb Su MD Primary Care Provider +1- [phone] Pb Su MD Primary Care Provider +- [phone] Pb Su MD Primary Care Provider +- [phone] Encounter Details Date Type Department Care Team (Latest Contact Info) Description 09/24/2012 Abstract [facility] Medical Group Social History Tobacco Use [...] on filedocumented in this encounter Care Teams Division Chief Relationship Specialty Start Date End Date Pb Su MD [address] [place], [place] [id number] PCP - General 04/26/16 Pb Su MD [address] [place] [address] PCP - General 05/19/15 04/25/16 Pb Su MD [address] [place] [address] PCP - General 12/07/14 05/18/15 Pb Su MD [address] [place] 3[address]39 PCP - General 12/05/14 12/06/14 Pb Su MD [address] [place] [address] PCP - General 03/23/14 12/04/14 Pb Su MD [address] [place] [address] PCP - General 03/21/14 03/22/14 Pb Su MD [address] [place] 22[address]09 PCP - General 03/16/14 03/20/14 Pb Su MD [address] [place] 48[address]19 PCP - General 03/14/14 03/15/14 Pb Su MD [address] [place] 59[address]39 PCP - General 03/09/14 03/13/14 Pb Su MD [address] [place] 64[address]79 PCP - General 03/02/14 03/08/14 Pb Su MD [address] [place] 6[address]19 PCP - General 02/28/14 03/01/14 Pb Su MD [address] [place] [address] PCP - General 02/25/14 02/27/14 Pb Su MD [address] [place] [address] PCP - General 02/23/14 02/24/14 Pb Su MD [address] [place] [address] PCP - General 02/17/14 02/22/14 Pb Su MD [address] [place], [place] [address]39 PCP - General 11/02/13 02/16/14 Pb Su MD [address] [place] 09[address]49 PCP - General 09/30/13 11/01/13 Pb Su MD [address] [place] 16[address]79 PCP - General 06/10/13 09/29/13 Pb Su MD [address] [place] [address]79 PCP - General 04/05/13 06/09/13 Pb Su MD [address] [place] 66[address]69 PCP - General 09/24/12 04/04/13 documented as of this encounter
--- OUTSIDE RECORDS SUMMARY | 2024-11-14 22:24 | XMS_ITS | Encounter Summary ---
Author Organization [facility] Address [address] [place] [address]. [place], [place] [address] [place] [address] Care Team Providers Care Director Of Assessment Name Role Phone Pb Su MD Primary Care Provider [phone] Pb Su MD Primary Care Provider Pb [...] Pb Su MD Primary Care Provider +1- [phone] Pb Su MD Primary Care Provider +1- [phone] Pb Su MD Primary Care Provider +1- [phone] Pb Su MD Primary Care Provider +1- [phone] Encounter Details Date Type Department Care Team (Late st Contact Info) Description 08/18/2012 Abstract [facility] Medical Group Family Medicine - [place] [address] [place] [id number] Pb Su MD [address] [place] [address] Social History Tobacco Use Types Packs/Day Years [...] Tablet; TAKE 1 TABLET DAILY DIRECTED; Therapy: [id number] to (Evaluate:14Feb2013); Last Rx:[id number] Signatures Electronically signed by : Pb Su M.D.; Aug 20 2012 8:29PM (Author) OGICAL LAB TECHNICIAN documented in this encounter Plan of Treatment Not on file documented as of this encounter Visit Diagnoses Not on filedocumented in this encounter Care Teams Director Of Assessment Relationship Specialty Start Date End Date Pb Su MD [address] [place] [address] PCP - General 04/26/16 Pb Su MD [address] [place] 37[address]59 PCP - General 05/19/15 04/25/16 Pb Su MD [address] [place] [address]109 PCP - General 12/07/14 05/18/15 Pb Su MD [address] [place] 7[address]269 PCP - General 12/05/14 12/06/14 Pb Su MD [address] [place] [address] PCP - General 03/23/14 12/04/14 Pb Su MD [address] [place] 372709 PCP - General 03/21/14 03/22/14 Pb Su MD [address] [place] 265669 PCP - General 03/16/14 03/20/14 Pb Su MD [address] [place] 608389 PCP - General 03/14/14 03/15/14 Pb Su MD [address] [place] 8[address]309 PCP - General 03/09/14 03/13/14 Pb Su MD [address] [place] [address] PCP - General 03/02/14 03/08/14 Pb Su MD [address] [place] 2[address]29 PCP - General 02/28/14 03/01/14 Pb Su MD [address] [place] 8[address]999 PCP - General 02/25/14 02/27/14 Pb Su MD [address] [place] 10[address]59 PCP - General 02/23/14 02/24/14 Pb Su MD [address] [place] 7[address]909 PCP - General 02/17/14 02/22/14 Pb Su MD [address] [place] [address] PCP - General 11/02/13 02/16/14 Pb Su MD [address] [place] [address] PCP - General 09/30/13 11/01/13 Pb Su MD [address] [place] [address] PCP - General 06/10/13 09/29/13 Pb Su MD [address] [place] 7[address]89 PCP - General 04/05/13 06/09/13 Pb Su MD [address] [place] 674899 PCP - General 09/24/12 04/04/13 Pb Su MD [address] [place] 449369 PCP - General 06/11/12 09/23/12 documented as of this encounter
--- OUTSIDE RECORDS SUMMARY | 2024-11-14 22:24 | XMS_ITS | Encounter Summary ---
Author Organization [facility] Address [address] [place] [address]. [place], [place] [address] [place] [address] Care Team Providers Care Human Factors Engineer Name Role Phone Pb Su MD [...] Pb Su MD Primary Care Provider +1- [phone] Encounter Details Date Type Department Care Team (Latest Contact Info) Description 09/21/2012 Abstract [facility] Medical Group Social [...] filedocumented in this encounter Care Teams Human Factors Engineer Relationship Specialty Start Date End Date Pb Su MD [address] [place], [place] [id number] PCP - General 04/26/16 Pb Su MD [address] [place] 04[address] PCP - General 05/19/15 04/25/16 Pb Su MD [address] [place] 742059 PCP - General 12/07/14 05/18/15 Pb Su MD [address] [place] 0[address]19 PCP - General 12/05/14 12/06/14 Pb Su MD [address] [place] [address] PCP - General 03/23/14 12/04/14 Pb Su MD [address] [place] 987729 PCP - General 03/21/14 03/22/14 Pb Su MD [address] [place] 0[address] PCP - General 03/16/14 03/20/14 Pb Su MD [address] [place] 9[address] PCP - General 03/14/14 03/15/14 Pb Su MD [address] [place] 8[address]059 PCP - General 03/09/14 03/13/14 Pb Su MD [address] [place] 8[address]289 PCP - General 03/02/14 03/08/14 Pb Su MD [address] [place] 891059 PCP - General 02/28/14 03/01/14 Pb Su MD [address] [place] [address] PCP - General 02/25/14 02/27/14 Pb Su MD [address] [place] 152089 PCP - General 02/23/14 02/24/14 Pb Su MD [address] [place] 7[address]39 PCP - General 02/17/14 02/22/14 Pb Su MD [address] [place] 0[address]679 PCP - General 11/02/13 02/16/14 Pb Su MD [address] [place] 660289 PCP - General 09/30/13 11/01/13 Pb Su MD [address] [place] 461339 PCP - General 06/10/13 09/29/13 Pb Su MD [address] [place] 850449 PCP - General 04/05/13 06/09/13 Pb Su MD [address] [place] [address] PCP - General 09/24/12 04/04/13 Pb Su MD [address] [place] [address] PCP - General 06/11/12 09/23/12 documented as of this encounter
--- OUTSIDE RECORDS SUMMARY | 2024-11-14 22:24 | XMS_ITS | Encounter Summary ---
Author Organization [facility] Address [address] [place] [address]. [place], [place] [address] [place] [address] Care Team Providers Care Senior Physical Therapist Name Role Phone Pb Su MD [...] Pb Su MD Primary Care Provider [phone] Encounter Details Date Type Department Care Team (Latest Contact Info) Description 07/08/2013 Abstract [facility] Medical Group Social History Tobacco [...] on filedocumented in this encounter Care Teams Senior Physical Therapist Relationship Specialty Start Date End Date Pb Su MD [address] [place], [place] 276449 PCP - General 04/26/16 Pb Su MD [address] [place] 59[address]79 PCP - General 05/19/15 04/25/16 Pb Su MD [address] [place] 4[address]19 PCP - General 12/07/14 05/18/15 Pb Su MD [address] [place] 637369 PCP - General 12/05/14 12/06/14 Pb Su MD [address] [place] 7[address]99 PCP - General 03/23/14 12/04/14 Pb Su MD [address] [place] [address] PCP - General 03/21/14 03/22/14 Pb Su MD [address] [place] [address] PCP - General 03/16/14 03/20/14 Pb Su MD [address] [place] 8[address]509 PCP - General 03/14/14 03/15/14 Pb Su MD [address] [place] 975809 PCP - General 03/09/14 03/13/14 Pb Su MD [address] [place] [address] PCP - General 03/02/14 03/08/14 Pb Su MD [address] [place] 247999 PCP - General 02/28/14 03/01/14 Pb Su MD [address] [place] [address]199 PCP - General 02/25/14 02/27/14 Pb Su MD [address] [place] [address] PCP - General 02/23/14 02/24/14 Pb Su MD [address] [place] 00[address] PCP - General 02/17/14 02/22/14 Pb Su MD [address] [place] [address] PCP - General 11/02/13 02/16/14 Pb Su MD [address] [place] 399309 PCP - General 09/30/13 11/01/13 Pb Su MD [address] [place], [place] 408929 PCP - General 06/10/13 09/29/13 documented as of this encounter
--- OUTSIDE RECORDS SUMMARY | 2024-11-14 22:24 | XMS_ITS | Encounter Summary ---
Author Organization [facility] Address [address] [place] [address]. [place], [place] [address] [place] [address] Care Team Providers Care Gunner Mate Name Role Phone Pb Su MD Primary [...] Team (Latest Contact Info) Description 07/07/2013 Abstract [facility] Medical Group Social [...] on filedocumented in this encounter Care Teams Gunner Mate Relationship Specialty Start Date End Date Pb Su MD [address] [place] [address] PCP - General 04/26/16 Pb Su MD [address] [place] 9[address]49 PCP - General 05/19/15 04/25/16 Pb Su MD [address] [place], [place] 321259 PCP - General 12/07/14 05/18/15 Pb Su MD [address] [place] 178249 PCP - General 12/05/14 12/06/14 Pb Su MD [address] [place] 680189 PCP - General 03/23/14 12/04/14 Pb Su MD [address] [place] [address] PCP - General 03/21/14 03/22/14 Pb Su MD [address] [place] [address] PCP - General 03/16/14 03/20/14 Pb Su MD [address] [place] 9[address]79 PCP - General 03/14/14 03/15/14 Pb Su MD [address] [place] 75[address] PCP - General 03/09/14 03/13/14 Pb Su MD [address] [place] [address] PCP - General 03/02/14 03/08/14 Pb Su MD [address] [place] 325659 PCP - General 02/28/14 03/01/14 Pb Su MD [address] [place] [address] PCP - General 02/25/14 02/27/14 bP Su MD [address] [place] [address] PCP - General 02/23/14 02/24/14 Pb Su MD [address] [place] 728509 PCP - General 02/17/14 02/22/14 Pb Su MD [address] [place] [address]109 PCP - General 11/02/13 02/16/14 Pb Su MD [address] [place] 7[address]169 PCP - General 09/30/13 11/01/13 Pb Su MD [address] [place] 270589 PCP - General 06/10/13 09/29/13 documented as of this encounter
--- OUTSIDE RECORDS SUMMARY | 2024-11-14 22:24 | XMS_ITS | Encounter Summary ---
Author Organization [facility] Address [address] [place] [address]. [place], [place] [address] [place] [address] Care Team Providers Care Diagnostic Medical Sonographer Name Role Phone Pb Su MD Primary [...] Pb Su MD Primary Care Provider [phone] Pb Su MD Primary Care Provider +1- [phone] Encounter Details Date Type Department Care Team (Latest Contact Info) Description 08/06/2012 Abstract [facility] Medical Group Social History Tobacco [...] on filedocumented in this encounter Care Teams Diagnostic Medical Sonographer Relationship Specialty Start Date End Date Pb Su MD [address] [place], [place] 87[address] PCP - General 04/26/16 Pb Su MD [address] [place] 57[address] PCP - General 05/19/15 04/25/16 Pb Su MD [address] [place], [place] 28[address]39 PCP - General 12/07/14 05/18/15 Pb Su MD [address] [place] [address] PCP - General 12/05/14 12/06/14 Pb Su MD [address] [place] [address] PCP - General 03/23/14 12/04/14 Pb Su MD [address] [place] 573129 PCP - General 03/21/14 03/22/14 Pb Su MD [address] [place] 2[address]49 PCP - General 03/16/14 03/20/14 Pb Su MD [address] [place] 157389 PCP - General 03/14/14 03/15/14 Pb Su MD [address] [place] 9[address]29 PCP - General 03/09/14 03/13/14 Pb Su MD [address] [place] [address]129 PCP - General 03/02/14 03/08/14 Pb Su MD [address] [place] 2012[address] PCP - General 02/28/14 03/01/14 Pb Su MD [address] [place] [address] PCP - General 02/25/14 02/27/14 Pb Su MD [address] [place] 22[address] PCP - General 02/23/14 02/24/14 Pb Su MD [address] [place] [address] PCP - General 02/17/14 02/22/14 Pb Su MD [address] [place] 58[address] PCP - General 11/02/13 02/16/14 Pb Su MD [address] [place] [address] PCP - General 09/30/13 11/01/13 Pb Su MD [address] [place] 601289 PCP - General 06/10/13 09/29/13 Pb Su MD [address] [place] 655489 PCP - General 04/05/13 06/09/13 Pb Su MD [address] [place] [address] PCP - General 09/24/12 04/04/13 Pb Su MD [address] [place] [address] PCP - General 06/11/12 09/23/12 documented as of this encounter
--- OUTSIDE RECORDS SUMMARY | 2024-11-14 22:24 | XMS_ITS | Encounter Summary ---
Author Organization [facility] Address [address] [place] [address]. [place], [place] [address] [place] [address] Care Team Providers Care Pharmaceutical Botanist Name Role Phone Pb Su MD Primary [...] Pb Su MD Primary Care Provider +1- [phone] Encounter Details Date Type Department Care Team (Latest Contact Info) Description 08/10/2012 Abstract [facility] Medical Group Social History Tobacco Use Types [...] on filedocumented in this encounter Care Teams Pharmaceutical Botanist Relationship Specialty Start Date End Date Pb Su MD [address] [place], [place] [id number] PCP - General 04/26/16 Pb Su MD [address] [place], [place] 296349 PCP - General 05/19/15 04/25/16 Pb Su MD [address] [place] 101019 PCP - General 12/07/14 05/18/15 Pb Su MD [address] [place] [address] PCP - General 12/05/14 12/06/14 Pb Su MD [address] [place] [address] PCP - General 03/23/14 12/04/14 Pb Su MD [address] [place] [address] PCP - General 03/21/14 03/22/14 Pb Su MD [address] [place] 4[address]29 PCP - General 03/16/14 03/20/14 Pb Su MD [address] [place] [address]019 PCP - General 03/14/14 03/15/14 Pb Su MD [address] [place] [address]139 PCP - General 03/09/14 03/13/14 Pb Su MD [address] [place] 58[address]69 PCP - General 03/02/14 03/08/14 Pb Su MD [address] [place] [address]309 PCP - General 02/28/14 03/01/14 Pb Su MD [address] [place] [address] PCP - General 02/25/14 02/27/14 Pb Su MD [address] [place] 8[address]649 PCP - General 02/23/14 02/24/14 Pb Su MD [address] [place] 9[address] PCP - General 02/17/14 02/22/14 Pb Su MD [address] [place] 47[address] PCP - General 11/02/13 02/16/14 Pb Su MD [address] [place] [address] PCP - General 09/30/13 11/01/13 Pb Su MD [address] [place] [address] PCP - General 06/10/13 09/29/13 Pb Su MD [address] [place] 24[address] PCP - General 04/05/13 06/09/13 Pb Su MD [address] [place] [address] PCP - General 09/24/12 04/04/13 Pb Su MD [address] [place] [address] PCP - General 06/11/12 09/23/12 documented as of this encounter
--- OUTSIDE RECORDS SUMMARY | 2024-11-14 22:24 | XMS_ITS | Encounter Summary ---
Author Organization [facility] Address [address] [place] [address]. [place], [place] [address] [place] [address] Care Team Providers Care Manager Marketing Sales Name Role Phone Pb Su MD Primary [...] Pb Su MD Primary Care Provider [phone] Pb Su MD Primary Care Provider [phone] Pb Su MD Primary Care Provider [phone] Encounter Details Date Type Department Care Team (Late st Contact Info) Description 12/04/2012 Abstract [facility] Medical Group Multispecialty Care - [facility] [address] [place] [address] Seun Mak DO [address] [place] [address] Social History Tobacco Use Types Packs/Day Years Used Date Smoking Tobacco: Never Assessed Sex and Gender Information Value Date Recorded Sex Assigned at Not on file Legal Sex Male 7:22 PM CDT Gender Identity Not on file Sexual Orientation Not on file documented as of this encounter Last Filed Vital Signs Vital Sign Reading Time Taken Comments Blood Pressure 120/80 12/04/2012 8:21 AM RENEWABLE ENERGY CONSULTANT Pulse - - Temperature - - Respiratory Rate - - Oxygen Saturation - - Inhaled Oxygen Concentration - - Weight 97.5 kg (215 lb) 12/04/2012 8:21 AM RENEWABLE ENERGY CONSULTANT Height 182.9 cm (6') 12/04/2012 8:21 AM RENEWABLE ENERGY CONSULTANT Body Mass Index 29.16 12/04/2012 8:21 AM RENEWABLE ENERGY CONSULTANT documented in this encounter Progress Notes [...] Oral Tablet; TAKE 2 TABLETS DAILY; Therapy: [id number] to (Evaluate:28Jan2013) Requested for: 04Dec2012; Last Rx:[id number] 3. Call if: The pain is not [...] Mak D.O.; Dec 04 2012 9:36AM (Author) WABLE ENERGY CONSULTANT documented in this encounter Plan of Treatment Not on file documented as of this encounter Visit Diagnoses Not on filedocumented in this encounter Care Teams Manager Marketing Sales Relationship Specialty Start Date End Date Pb Su MD [address] [place] [address] PCP - General 04/26/16 Pb Su MD [address] [place], [place] 314849 PCP - General 05/19/15 04/25/16 Pb Su MD [address] [place], [place] 39[address] PCP - General 12/07/14 05/18/15 Pb Su MD [address] [place], [place] 7[address]269 PCP - General 12/05/14 12/06/14 Pb Su MD [address] [place] [address] PCP - General 03/23/14 12/04/14 Pb Su MD [address] [place], [place] 11530[address] PCP - General 03/21/14 03/22/14 Pb Su MD [address] [place] 419479 PCP - General 03/16/14 03/20/14 Pb Su MD [address] [place] [address] PCP - General 03/14/14 03/15/14 Pb Su MD [address] [place] [address] PCP - General 03/09/14 03/13/14 Pb Su MD [address] [place], [place] 4[address]69 PCP - General 03/02/14 03/08/14 Pb Su MD [address] [place] [address] PCP - General 02/28/14 03/01/14 Pb Su MD [address] [place] [address] PCP - General 02/25/14 02/27/14 Pb Su MD [address] [place] [address]139 PCP - General 02/23/14 02/24/14 Pb Su MD [address] [place], [place] 125679 PCP - General 02/17/14 02/22/14 Pb Su MD [address] [place] 128259 PCP - General 11/02/13 02/16/14 Pb Su MD [address] [place], [place] [address] PCP - General 09/30/13 11/01/13 Pb Su MD [address] [place], [place] 4[address] PCP - General 06/10/13 09/29/13 Pb Su MD [address] [place], [place] [address]649 PCP - General 04/05/13 06/09/13 Pb Su MD [address] [place], [place] 30[address] PCP - General 09/24/12 04/04/13 documented as of this encounter
--- OUTSIDE RECORDS SUMMARY | 2024-11-14 22:24 | XMS_ITS | Encounter Summary ---
Author Organization [facility] Address [address] [place] [address]. [place], [place] [address] [place] [address] Care Team Providers Care Theatrical Trouper Name Role Phone Pb Su MD Primary [...] (Late st Contact Info) Description 08/19/2013 Abstract [facility] Medical Group Multispecialty Care - [facility] [address] [place] [address] Seun MakDO [address] [place] [address] Social History Tobacco Use Types Packs/Day Years [...] His prepatellar bursa is asymptomatic. EVON/ROSAURA/mp Job [id number] Active Problems 1. Atrial Fibrillation 427.31 2. [...] Oral Tablet; TAKE 2 TABLETS DAILY; Therapy: [id number] to (Evaluate:14Oct2013) Requested for: [id number]; Last Rx:[id number] Allergies 1. Acetaminophen-Codeine #3 TABS Vitals [id number] 03:06PM Bp not recorded Unable to obtain BMI Calculated 29.94 BSA Calculated 2.22 Height 6 ft Weight 221 lb Assessment 1. Joint Pain, Localized In The Knee 719.46 2. Joint Pain In The Right Knee 719.46 Signatures Electronically signed by : Seun Mak D.O.; Aug 19 2013 6:12PM (Author) Electronically signed by : Seun Mak D.O.; Aug 23 2013 6:32PM (Author) EL FARMER documented in this encounter Plan of Treatment Not on file documented as of this encounter Visit Diagnoses Not on filedocumented in this encounter Care Teams Theatrical Trouper Relationship Specialty Start Date End Date Pb Su MD [address] [place] [address] PCP - General 04/26/16 Pb Su MD [address] [place], [place] [address] PCP - General 05/19/15 04/25/16 Pb uS MD [address] [place], [place] [id number] PCP - General 12/07/14 05/18/15 Pb Su MD [address] [place], [place] [id number] PCP - General 12/05/14 12/06/14 Pb Su MD [address] [place] [address] PCP - General 03/23/14 12/04/14 Pb Su MD [address] [place] [address] PCP - General 03/21/14 03/22/14 Pb Su MD [address] [place], [place] [address] PCP - General 03/16/14 03/20/14 Pb Su MD [address] [place] [address] PCP - General 03/14/14 03/15/14 Pb Su MD [address] [place] [address] PCP - General 03/09/14 03/13/14 Pb Su MD [address] [place] [address] PCP - General 03/02/14 03/08/14 Pb Su MD [address] [place], [place] [address] PCP - General 02/28/14 03/01/14 Pb Su MD [address] [place], [place] [address] PCP - General 02/25/14 02/27/14 Pb Su MD [address] [place], [place] [address] PCP - General 02/23/14 02/24/14 Pb Su MD [address] [place], [place] [address] PCP - General 02/17/14 02/22/14 Pb Su MD [address] [place], [place] [address] PCP - General 11/02/13 02/16/14 Pb Su MD [address] [place], [place] [address] PCP - General 09/30/13 11/01/13 Pb Su MD [address] [place], [place] [address] PCP - General 06/10/13 09/29/13 documented as of this encounter
--- OUTSIDE RECORDS SUMMARY | 2024-11-14 22:24 | XMS_ITS | Encounter Summary ---
Author Organization [facility] Address [address] [place] [address]. 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 The patient has never smoked cigarettes and [...] history: previous back injury. 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 The patient is currently able to do [...] 1. Claritin 10 MG Oral Tablet; Therapy: (Recorded:51Gmc9161) to Recorded; Dispense: 0 Days ; #: Sufficient TABS; Refill: 0; Record; Last Updated By: Denisse Ceja Allergies 1. Acetaminophen-Codeine #3 TABS Vitals 95Mja5859 07:38AM Temperature 98 F, Oral Heart Rate [...] advised to be evaluat ed by an ship boss and a dentist. Advice and education were [...] Su M.D.; Jul 04 2013 10:14AM (Author) A DIRECTOR documented in this encounter Plan of Treatment Not on file documented as of this encounter Visit Diagnoses Not on filedocumented in this encounter Care Teams Cloth Washer Operator Relationship Specialty Start Date End Date Pb Su MD [address] [place] [address] PCP - General 04/26/16 Pb Su MD [address] [place] [address] PCP - General 05/19/15 04/25/16 Pb Su MD [address] [place] [address] PCP - General 12/07/14 05/18/15 Pb Su MD [address] [place] [address] PCP - General 12/05/14 12/06/14 Pb Su MD [address] [place], [place] [address] PCP - General 03/23/14 12/04/14 Pb Su MD [address] [place] [address] PCP - General 03/21/14 03/22/14 Pb Su MD [address] [place], [place] [address] PCP - General 03/16/14 03/20/14 Pb Su MD [address] [place] [address] PCP - General 03/14/14 03/15/14 Pb Su MD [address] [place], [place] [address] PCP - General 03/09/14 03/13/14 Pb Su MD [address] [place] [address] PCP - General 03/02/14 03/08/14 Pb Su MD [address] [place] [address] PCP - General 02/28/14 03/01/14 Pb Su MD [address] [place] [address] PCP - General 02/25/14 02/27/14 Pb Su MD [address] [place] [address] PCP - General 02/23/14 02/24/14 Pb Su MD [address] [place] [address] PCP - General 02/17/14 02/22/14 Pb Su MD [address] [place] [address] PCP - General 11/02/13 02/16/14 Pb Su MD [address] [place], [place] [address] PCP - General 09/30/13 11/01/13 Pb Su MD [address] [place], [place] [address] PCP - General 06/10/13 09/29/13 documented as of this encounter
--- OUTSIDE RECORDS SUMMARY | 2024-11-14 22:24 | XMS_ITS | Encounter Summary ---
Author Organization [facility] Address [address] [place] [address]. [place], [place] [address] [place] [address] Care Team Providers Care Renewals Specialist Name Role Phone Pb Su MD Primary Care Provider [phone] Pb Su MD Primary Care Provider Pb [...] Pb Su MD Primary Care Provider +[phone]- [phone] Pb Su MD Primary Care Provider +[phone]- [phone] Pb Su MD Primary Care Provider +[phone]- [phone] Pb Su MD Primary Care Provider +[phone]- [phone] Encounter Details Date Type Department Care Team (Late st Contact Info) Description 07/31/2012 Abstract [facility] Medical [facility] Family Medicine - [place] [address] [place] [phone] Pb Su MD 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 [...] ?? CMP (Comprehensive Metabolic Profile) Requested for: 78Syb5158 ?? Lipid Profile Requested for: 88Enj4131 ?? TSH (Thyroid Stim Hormone) Requested for: 23Ldb6730 ?? Call 133 if: You experience a new kind of chest pain (angina) or pressure. Requested for: 03Lbv2974 ?? A diet that is low in fat, cholesterol and sodium is considered a cardiac diet. Done: 05Uzj0428 ?? Avoid alcoholic beverages. Done: 41Znr0445 ?? Begin or continue regular aerobic exercise. Gradually work up to at least 3 sessions of 30 minutes of exercise a week. Done: 71Odd3362 ?? Eat a low fat and low cholesterol diet. Done: 46Day4536 ?? Some eating tips that can help you lose weight. Done: 51Dic1325 ?? Start eating more fiber. Done: 72Bkf0165 Joint Pain, Localized In The Knee (719.46) ?? Physical Therapy Referral Outpatient Consult for adult Requested for: 16Opq9286 Lower Back Pain (724.2) ?? Call if: The pain is not better in 1 week. Requested for: 94Vax1278 ?? Call if: The pain seems worse. Requested for: 39Zbn0875 ?? Call if: You have pain or numbness from your back to your hip and leg. Requested for: 98Gmq3647 ?? Call if: You lose weight without trying to. Requested for: 15Foj8841 ?? Call if: Your bowel movements are hard, difficult to push out, or if several days have gone by without a bowel movement. Requested for: 28Itm5668 ?? Call if: Your temperature is higher than 101F. Requested for: 27Cbl1871 ?? Seek Immediate Medical Attention if: You have signs of dangerous pressure on the nerves in your pelvis. Requested for: 01Cmx4037 ?? Seek Immediate Medical Attention if: Your leg becomes weak. Requested for: 30Ctr8979 ?? Seek Immediate Medical Attention if: Your leg is numb, cold, or tingling. Requested for: 29Eqf8921 ?? Begin a walking program. Start with walks lasting 10 minutes and slowly work up to 30-40 minutes as pain allows. Done: 83Bzs3254 ?? Rest the injured area as much as possible. Done: 82Tkv9553 ?? Some eating tips that can help you lose weight include: Done: 62Bdf4535 ?? There are several things you can do to help your back heal and stay healthy. Done: 91Jxc3936 ?? We recommend that you avoid straining your back while lifting. Done: 72Aop9774 Premature Ventricular Contractions (427.69) ?? Call if: The symptoms seem worse. Requested for: 54Dbt8132 ?? Call if: You become dizzy or lightheaded, especially when you stand up after sitting for awhile. Requested for: 47Vfq4616 ?? Call if: You feel unusually tired. Requested for: 11Azg5214 ?? Call if: Your pulse is faster than 100 or is slower than 60 or seems irregular. Requested for: 29Jce8189 ?? Seek Immediate Medical Attention if: You are feeling short of breath. Requested for: 16Xcp1009 ?? Seek Immediate Medical Attention if: You experience a new kind of chest pain (angina) or pressure. Requested for: 30Xgp6004 ?? Seek Immediate Medical Attention if: You feel your heart is beating very fast or skipping beats. Requested for: 96Gzr6533 ?? Seek Immediate Medical Attention if: You have fainted or passed out. Requested for: 25Bip6137 ?? Avoid alcoholic beverages. Done: 90Plq9105 ?? Avoid foods and beverages that contain caffeine. Done: 18Ldp0002 ?? You may continue or resume your normal level of activity. Done: 09Izy4515 Signatures Electronically signed by : Pb Su M.D.; Jul 31 2012 3:08PM (Author) STANT PROFESSOR OF CHEMISTRY documented in this encounter Plan of Treatment Not on file documented as of this encounter Visit Diagnoses Not on filedocumented in this encounter Care Teams Renewals Specialist Relationship Specialty Start Date End Date Pb Su MD [address] [place], [place] [address] PCP - General 04/26/16 Pb Su MD [address] [place] [address] PCP - General 05/19/15 04/25/16 Pb Su MD [address] [place], [place] [address] PCP - General 12/07/14 05/18/15 Pb Su MD [address] [place], [place] [address] PCP - General 12/05/14 12/06/14 Pb Su MD [address] [place] [address] PCP - General 03/23/14 12/04/14 Pb Su MD [address] [place], [place] [address] PCP - General 03/21/14 03/22/14 Pb Su MD [address] [place] [address] PCP - General 03/16/14 03/20/14 Pb Su MD [address] [place] [address] PCP - General 03/14/14 03/15/14 Pb Su MD [address] [place] [address] PCP - General 03/09/14 03/13/14 Pb Su MD [address] [place] [address] PCP - General 03/02/14 03/08/14 Pb Su MD [address] [place] [address] PCP - General 02/28/14 03/01/14 Pb Su MD [address] [place], [place] [address] PCP - General 02/25/14 02/27/14 Pb Su MD [address] [place] [address] PCP - General 02/23/14 02/24/14 Pb Su MD [address] [place] [address] PCP - General 02/17/14 02/22/14 Pb Su MD [address] [place] [address] PCP - General 11/02/13 02/16/14 Pb Su MD [address] [place] [address] PCP - General 09/30/13 11/01/13 Pb Su MD [address] [place], [place] [address] PCP - General 06/10/13 09/29/13 Pb Su MD [address] [place], [place] [address] PCP - General 04/05/13 06/09/13 Pb Su MD [address] [place] [address] PCP - General 09/24/12 04/04/13 Pb Su MD [address] [place], [place] [address] PCP - General 06/11/12 09/23/12 documented as of this encounter
--- OUTSIDE RECORDS SUMMARY | 2024-11-14 22:24 | XMS_ITS | Encounter Summary ---
Author Organization [facility] Address [address] [place] [address]. [place], [place] [address] [place] [address] Care Team Providers Care Statistical Methods Teacher Name Role Phone Pb Su MD [...] Pb Su MD Primary Care Provider [phone] Encounter Details Date Type Department Care Team (Latest Contact Info) Description 04/05/2013 Abstract [facility] Vahe Chatterjee MD Social History Tobacco Use Types Packs/Day Years Used Date Smoking Tobacco: Never Assessed Sex and Gender Information Value Date Recorded Sex Assigned at Not on file Legal Sex Male 7:22 PM CDT Gender Identity Not on file Sexual Orientation Not on file documented as of this encounter Progress Notes * Pb Su MD - 04/05/2013 4:16 PM CDT [place] [address] Patient: AVA CEDILLO [facility] Rec#: [id number] Birthdate: 1965 Admit/Svce Date: Disch Date: CHART [...] is unremarkable. His exam is unchanged. His Clio Sleepiness Score is 3. Assessment: Clinically, he [...] M.D. 04/07/2013 20:26 IRWIN DAWKINS M.D. P #[id number] P/ma cc: Hali TOLENTINO M.D. HAT POUNCING OPERATOR HAND documented in this encounter Plan of Treatment Not on file documented as of this encounter Visit Diagnoses Not on filedocumented in this encounter Care Teams Statistical Methods Teacher Relationship Specialty Start Date End Date Pb Su MD [address] [place], [place] [address] PCP - General 04/26/16 Pb Su MD [address] [place], [place] [address] PCP - General 05/19/15 04/25/16 Pb Su MD [address] [place], [place] [address] PCP - General 12/07/14 05/18/15 Pb Su MD [address] [place], [place] [address] PCP - General 12/05/14 12/06/14 Pb Su MD [address] [place], [place] [address] PCP - General 03/23/14 12/04/14 Pb Su MD [address] [place] [address] PCP - General 03/21/14 03/22/14 Pb Su MD [address] [place] [address] PCP - General 03/16/14 03/20/14 Pb Su MD [address] [place] [address] PCP - General 03/14/14 03/15/14 Pb Su MD [address] [place], [place] [address] PCP - General 03/09/14 03/13/14 Pb Su MD [address] [place] [address] PCP - General 03/02/14 03/08/14 Pb Su MD [address] [place] [address] PCP - General 02/28/14 03/01/14 Pb Su MD [address] [place], [place] [address] PCP - General 02/25/14 02/27/14 Pb Su MD [address] [place] [address] PCP - General 02/23/14 02/24/14 Pb Su MD [address] [place] [address] PCP - General 02/17/14 02/22/14 Pb Su MD [address] [place] [address] PCP - General 11/02/13 02/16/14 Pb Su MD [address] [place] [address] PCP - General 09/30/13 11/01/13 Pb Su MD [address] [place] [address] PCP - General 06/10/13 09/29/13 Pb Su MD [address] [place] [address] PCP - General 04/05/13 06/09/13 documented as of this encounter
--- OUTSIDE RECORDS SUMMARY | 2024-11-14 22:24 | XMS_ITS | Encounter Summary ---
Author Organization [facility] Address [address] [place] [address]. [place], [place] [address] [place] [address] Care Team Providers Care Motion Designer Name Role Phone Pb Su MD [...] Pb Su MD Primary Care Provider [phone] Encounter Details Date Type Department Care Team (Latest Contact Info) Description 06/13/2013 Abstract [facility] Medical [facility] Social History Tobacco Use [...] Verified Results Vitamin D 25 - Hydroxy 35Zcd6223 10:05AM Pb Su Test Name Result Flag Reference Vitamin D 25-Hydroxy 28 NG/ML L 30-100 INTERPRETATION DEFICIENT <20 INSUFFICIENT 20-30 SUFFICIENT 30-100 POTENTIAL INTOXICATION >100 TESTING PERFORMED AT [facility], A MEMBER OF THE [facility]ENCE [facility] NETWORK. ABILITY TECHNICIAN documented in this encounter Plan of Treatment Not on file documented as of this encounter Visit Diagnoses Not on filedocumented in this encounter Care Teams Motion Designer Relationship Specialty Start Date End Date Pb Su MD [address] [place], [place] [address] PCP - General 04/26/16 Pb Su MD [address] [place], [place] [address] PCP - General 05/19/15 04/25/16 Pb Su MD [address] [place], [place] [address] PCP - General 12/07/14 05/18/15 Pb Su MD [address] [place] [address] PCP - General 12/05/14 12/06/14 Pb Su MD [address] [place] [address] PCP - General 03/23/14 12/04/14 Pb Su MD [address] [place] [address] PCP - General 03/21/14 03/22/14 Pb Su MD [address] [place] [address] PCP - General 03/16/14 03/20/14 bP Su MD [address] [place] [address] PCP - General 03/14/14 03/15/14 Pb Su MD [address] [place], [place] [address] PCP - General 03/09/14 03/13/14 Pb Su MD [address] [place] [address] PCP - General 03/02/14 03/08/14 Pb Su MD [address] [place] [address] PCP - General 02/28/14 03/01/14 Pb Su MD [address] [place] [address] PCP - General 02/25/14 02/27/14 Pb Su MD [address] [place] [address] PCP - General 02/23/14 02/24/14 Pb Su MD [address] [place] [address] PCP - General 02/17/14 02/22/14 Pb Su MD [address] [place] [address] PCP - General 11/02/13 02/16/14 Pb Su MD [address] [place] [address] PCP - General 09/30/13 11/01/13 Pb Su MD [address] [place], [place] [address] PCP - General 06/10/13 09/29/13 documented as of this encounter
--- OUTSIDE RECORDS SUMMARY | 2024-11-14 22:24 | XMS_ITS | Encounter Summary ---
Author Organization [facility] Address [address] [place] [address]. [place], [place] [address] [place] [address] Care Team Providers Care Synchronous Motor Assembler Name Role Phone Pb Su MD [...] Provider bP Su MD Primary Care Provider Encounter Details Date Type Department Care Team (Late st Contact Info) Description 09/30/2013 Abstract [facility] [address] [place], [place] [address] Pb Su MD [address] [place], [place] [address] Social History Tobacco Use Types Packs/Day Years [...] site documented in this encounter Care Teams Synchronous Motor Assembler Relationship Specialty Start Date End Date Pb Su MD [address] [place], [place] [address] PCP - General 04/26/16 Pb Su MD [address] [place], [place] [address]859 PCP - General 05/19/15 04/25/16 Pb Su MD [address] [place], [place] [address] PCP - General 12/07/14 05/18/15 Pb Su MD [address] [place], [place] [address] PCP - General 12/05/14 12/06/14 Pb Su MD [address] [place] [address] PCP - General 03/23/14 12/04/14 Pb Su MD [address] [place], [place] [address] PCP - General 03/21/14 03/22/14 Pb Su MD [address] [place] [address] PCP - General 03/16/14 03/20/14 Pb Su MD [address] [place], [place] [address] PCP - General 03/14/14 03/15/14 Pb Su MD [address] [place] [address] PCP - General 03/09/14 03/13/14 Pb Su MD [address] [place] [address] PCP - General 03/02/14 03/08/14 Pb Su MD [address] [place], [place] [address] PCP - General 02/28/14 03/01/14 Pb Su MD [address] [place] [address] PCP - General 02/25/14 02/27/14 Pb Su MD [address] [place], [place] [address] PCP - General 02/23/14 02/24/14 Pb Su MD [address] [place], [place] [address] PCP - General 02/17/14 02/22/14 Pb Su MD [address] [place] [address] PCP - General 11/02/13 02/16/14 Pb Su MD [address] [place], [place] [address] PCP - General 09/30/13 11/01/13 documented as of this encounter
--- OUTSIDE RECORDS SUMMARY | 2024-11-14 22:24 | XMS_ITS | Encounter Summary ---
Author Organization [facility] Address [address] [place] [address]. [place], [place] [address] [place] [address] Care Team Providers Care Research Software Engineer Name Role Phone Pb Su MD [...] Pb Su MD Primary Care Provider +- [phone] Encounter Details Date Type Department Care Team (Late st Contact Info) Description 06/10/2013 Abstract [facility] Medical Group Family Medicine - [place] [address] [place] [phone] Pb Su MD [address] [place], [place] [address] Social History Tobacco Use Types Packs/Day Years [...] Results CBC WO Diff ( Hemogram ) 26Vwl4510 10:05AM Pb Su Test Name Result Flag [...] >=160 >=130 TSH W Reflex Free T4 09Qgx0941 10:05AM Pb Su Test Name Result Flag Reference TSH w Reflex Free T4 1.29 mIU/mL 0.27-4.20 FREE T4 NOT INDICATED Prostate Specif Ag ( PSA ) Scrn 78Mmz7716 10:05AM Pb Su Test Name Result Flag Reference Prostate Specific Antigen 0.760 ng/mL <4.0 TEST WAS PERFORMED USING THE YADI METHOD. PSA VALUES OBTAINED WITH OTHER ASSAY METHODS OR KITS CANNOT BE USED INTERCHANGEABLY WITH RESULTS OBTAINED BY THE YADI METHOD. 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 [...] Vitals Vital Signs [Data Includes: Current Encounter] 77Duq2910 08:12AM Temperature 98 F, Oral Heart Rate [...] Results CBC WO Diff ( Hemogram ) 52Uaa1739 10:05AM Pb Su Test Name Result Flag [...] Metabolic Prof ( CMP ) Requested for: 08Rnb1884 Ordered; For: Hyperlipidemia (272.4); Ordered By: Pb Su Perform: [facility] Due: 03Fws7780 2. Lipid Profile Requested for: 08Rvr4392 Ordered; For: Hyperlipidemia (272.4); Ordered By: Pb Su Perform: [facility] Due: 56Shh2799 3. CBC WO Diff ( Hemogram ) Done: 10Jun2013 10:05AM Ordered; For: Hyperlipidemia (272.4), Fatigue (780.79); Ordered By: Pb Su Performed: [facility] Due: 93Ina9428 4. TSH W Reflex Free T4 Done: 10Jun2013 10:05AM Ordered; For: Hyperlipidemia (272.4), Fatigue (780.79); Ordered By: Pb Su Performed: [facility] Due: 97Iou7040 5. Nabumetone 500 MG Oral Tablet; TAKE 2 TABLETS DAILY; Therapy: 32Wun5262 to 73Wfw8287; Last Rx:72Oqp7653; Status: DISCONTINUED Ordered; For: Joint Pain, Localized In The Knee (719.46); Rx By: Seun Mak; Dispense: 30 Days; #:60 Tablet; Refill: 2; Sent To: [facility]; Last Updated By: Denisse Ceja 6. Prostate Specif Ag ( PSA ) Scrn Done: 10Jun2013 10:05AM Ordered; For: Visit For: Screening Exam Malignant Neoplasm Prostate (V76.44); Ordered By: Pb Su Performed: [facility] Due: 17Gxn2805 7. Vitamin D 25 - Hydroxy Requested for: 83Yxc2449 Ordered; For: Vitamin D Deficiency (268.9); Ordered By: Pb Su Perform: [facility] Due: 50Baj6391 Discussion/Summary Discussion Summary Free Text: Summary: 48 yo male with 3-4 week history of fatigue, malaise, somulence but denies bleeding per rectum, chest pain, depression. Admits to notusing CPAP. As customary, we reviewed PMH, performed history,exam, developed differential to include evaluation/treatment program! Signatures Electronically signed by : Pb Su M.D.; Jun 10 2013 4:33PM (Author) GAGE LOAN COMPUTATION CLERK documented in this encounter Plan of Treatment [...] POTENTIAL INTOXICATION ??>100 ? TESTING PERFORMED AT [facility], A MEMBER OF THE [facility] REFERENCE LAB NETWORK. 06/10/2013 10:0 5 AM [...] METABOLIC PANEL (06/10/2013 10:05 AM CDT) Pathologist [facility] SODIUM S/P/B 137 136 - 145 [...] LABORATORY Final Resul t Performing Organization Address [facility] de Phone Number [employer] TO EPIC CONVERSION [...] LABORATORY Final Resul t Performing Organization Address [facility] de Phone Number [employer] TO EPIC CONVERSION [...] on filedocumented in this encounter Care Teams Research Software Engineer Relationship Specialty Start Date End Date Pb Su MD [address] [place], [place] [address] PCP - General 04/26/16 Pb Su MD [address] [place], [place] [address] PCP - General 05/19/15 04/25/16 Pb Su MD [address] [place] [address] PCP - General 12/07/14 05/18/15 Pb Su MD [address] [place], [place] [address] PCP - General 12/05/14 12/06/14 Pb Su MD [address] [place] [address] PCP - General 03/23/14 12/04/14 Pb Su MD [address] [place], [place] [address] PCP - General 03/21/14 03/22/14 Pb Su MD [address] [place] [address] PCP - General 03/16/14 03/20/14 Pb Su MD [address] [place] [address] PCP - General 03/14/14 03/15/14 Pb Su MD [address] [place], [place] [address] PCP - General 03/09/14 03/13/14 Pb Su MD [address] [place] [address] PCP - General 03/02/14 03/08/14 Pb Su MD [address] [place] [address] PCP - General 02/28/14 03/01/14 Pb Su MD [address] [place], [place] [address] PCP - General 02/25/14 02/27/14 Pb Su MD [address] [place] [address] PCP - General 02/23/14 02/24/14 Pb Su MD [address] [place] [address] PCP - General 02/17/14 02/22/14 Pb Su MD [address] [place], [place] [address] PCP - General 11/02/13 02/16/14 Pb Su MD [address] [place], [place] [address] PCP - General 09/30/13 11/01/13 Pb Su MD [address] [place], [place] [address] PCP - General 06/10/13 09/29/13 documented as of this encounter
--- OUTSIDE RECORDS SUMMARY | 2024-11-14 22:25 | XMS_ITS | Encounter Summary ---
Author Organization [facility] Address [address] [place] [address]. [place], [place] [address] [place] [address] Care Team Providers Care Open Hearth Furnace Operator Helper Name Role Phone Pb Su MD [...] Pb Su MD Primary Care Provider +[phone] Pb Su MD Primary Care Provider +[phone] Pb Su MD Primary Care Provider Pb uS MD Primary Care Provider +[phone] Pb Su MD Primary Care Provider +[phone] Sussy Zavala MD Primary Care Provider [phone] Fernie Erickson MD Primary Care Provider Unav ailable Encounter Details Date Type Department Care Team (Latest Contact Info) Description 11/01/2010 Abstract [facility] [...] on filedocumented in this encounter Care Teams Open Hearth Furnace Operator Helper Relationship Specialty Start Date End Date Pb Su MD [address] [place], [place] [id number] PCP - General 04/26/16 Pb Su MD [address] [place] [id number] PCP - General 05/19/15 04/25/16 Pb Su MD [address] [place] [id number] PCP - General 12/07/14 05/18/15 Pb Su MD [address] [place] [address] PCP - General 12/05/14 12/06/14 Pb Su MD [address] [place] 30[address]19 PCP - General 03/23/14 12/04/14 Pb Su MD [address] [place] 130819 PCP - General 03/21/14 03/22/14 Pb Su MD [address] [place] 55[address]49 PCP - General 03/16/14 03/20/14 Pb Su MD [address] [place] 44[address]89 PCP - General 03/14/14 03/15/14 Pb Su MD [address] [place] 8[address] PCP - General 03/09/14 03/13/14 Pb Su MD [address] [place] [address]269 PCP - General 03/02/14 03/08/14 Pb Su MD [address] [place] [address] PCP - General 02/28/14 03/01/14 Pb Su MD [address] [place] [address] PCP - General 02/25/14 02/27/14 Pb Su MD [address] [place] 15[address]19 PCP - General 02/23/14 02/24/14 Pb Su MD [address] [place] 125669 PCP - General 02/17/14 02/22/14 Pb Su MD [address] [place] [address] PCP - General 11/02/13 02/16/14 Pb Su MD [address] [place] [address]269 PCP - General 09/30/13 11/01/13 Pb Su MD [address] [place] 9[address]159 PCP - General 06/10/13 09/29/13 Pb Su MD [address] [place] [address] PCP - General 04/05/13 06/09/13 Pb Su MD [address] [place] [address] PCP - General 09/24/12 04/04/13 Pb Su MD [address] [place] [address] PCP - General 06/11/12 09/23/12 Pb Su MD [address] [place] [address] PCP - General 01/02/12 06/10/12 Pb Su MD [address] [place] [address] PCP - General 10/03/11 01/01/12 Sussy Zavala MD [address] [place] [address] PCP - General 08/05/11 10/02/11 Fernie Erickson MD [address] [place] [address] PCP - General 10/06/10 08/04/11 documented as of this encounter
--- OUTSIDE RECORDS SUMMARY | 2024-11-14 22:25 | XMS_ITS | Encounter Summary ---
Author Organization [facility] Address [address] [place] [address]. [place], [place] [address] [place] [address] Care Team Providers Care Climatology Professor Name Role Phone Pb Su MD Primary Care Provider [phone] Pb Su MD Primary Care Provider Pb [...] Pb Su MD Primary Care Provider +[phone] Pb Su MD Primary Care Provider +[phone] Pb Su MD Primary Care Provider +[phone] Pb Su MD Primary Care Provider +[phone] Pb Su MD Primary Care Provider +[phone] Pb Su MD Primary Care Provider [phone] Sussy Zavala MD Primary Care Provider [phone] Encounter Details Date Type Department Care Team (Late st Contact Info) Description 08/22/[address] [facility] [address] [place] [address] Marquise Salinas MD Social History Tobacco Use [...] (pediatric) documented in this encounter Care Teams Climatology Professor Relationship Specialty Start Date End Date Pb Su MD [address] [place], [place] 28[address]39 PCP - General 04/26/16 Pb Su MD [address] [place], [place] 255[address] PCP - General 05/19/15 04/25/16 Pb Su MD [address] [place], [place] 9[address] PCP - General 12/07/14 05/18/15 Pb Su MD [address] [place] [address] PCP - General 12/05/14 12/06/14 Pb Su MD [address] [place] [address] PCP - General 03/23/14 12/04/14 Pb Su MD [address] [place] 617149 PCP - General 03/21/14 03/22/14 Pb Su MD [address] [place] 08[address]49 PCP - General 03/16/14 03/20/14 Pb Su MD [address] [place] 234839 PCP - General 03/14/14 03/15/14 Pb Su MD [address] [place] [address]39 PCP - General 03/09/14 03/13/14 Pb Su MD [address] [place] 86[address]89 PCP - General 03/02/14 03/08/14 Pb Su MD [address] [place] [address] PCP - General 02/28/14 03/01/14 Pb Su MD [address] [place] [address] PCP - General 02/25/14 02/27/14 Pb Su MD [address] [place] 65[address]39 PCP - General 02/23/14 02/24/14 Pb Su MD [address] [place] 101759 PCP - General 02/17/14 02/22/14 Pb Su MD [address] [place] [address] PCP - General 11/02/13 02/16/14 Pb Su MD [address] [place] 6[address]29 PCP - General 09/30/13 11/01/13 Pb Su MD [address] [place] 04[address]69 PCP - General 06/10/13 09/29/13 Pb Su MD [address] [place] [address] PCP - General 04/05/13 06/09/13 Pb Su MD [address] [place] 696509 PCP - General 09/24/12 04/04/13 Pb Su MD [address] [place] 6[address]19 PCP - General 06/11/12 09/23/12 Pb Su MD [address] [place] 7[address]609 PCP - General 01/02/12 06/10/12 Pb Su MD [address] [place] 245179 PCP - General 10/03/11 01/01/12 Sussy Zavala MD Three [facility]. [address] [place], [place] [address]109 PCP - General 08/05/11 10/02/11 documented as of this encounter
--- OUTSIDE RECORDS SUMMARY | 2024-11-14 22:25 | XMS_ITS | Encounter Summary ---
Author Organization [facility] Address [address] [place] [address]. [place], [place] [address] [place] [address] Care Team Providers Care Dietetic Aide Name Role Phone Pb Su MD Primary [...] Pb Su MD Primary Care Provider [phone] Encounter Details Date Type Department Care Team (Late st Contact Info) Description 01/23/[address] [facility] [address] [place] [address] Marquise Salinas MD Social History Tobacco Use [...] (pediatric) documented in this encounter Care Teams Dietetic Aide Relationship Specialty Start Date End Date Pb Su MD [address] [place], [place] [id number] PCP - General 04/26/16 Pb Su MD [address] [place], [place] 81505269 PCP - General 05/19/15 04/25/16 Pb Su MD [address] [place], [place] 78535269 PCP - General 12/07/14 05/18/15 Pb Su MD [address] [place] [address] PCP - General 12/05/14 12/06/14 Pb Su MD [address] [place] [address] PCP - General 03/23/14 12/04/14 Pb Su MD [address] [place] 14[address]99 PCP - General 03/21/14 03/22/14 Pb Su MD [address] [place] 616879 PCP - General 03/16/14 03/20/14 Pb Su MD [address] [place] 802309 PCP - General 03/14/14 03/15/14 Pb Su MD [address] [place] [address] PCP - General 03/09/14 03/13/14 Pb Su MD [address] [place] 741609 PCP - General 03/02/14 03/08/14 Pb Su MD [address] [place] [address] PCP - General 02/28/14 03/01/14 Pb Su MD [address] [place] 6[address]19 PCP - General 02/25/14 02/27/14 Pb Su MD [address] [place] 04[address]19 PCP - General 02/23/14 02/24/14 Pb Su MD [address] [place] 192459 PCP - General 02/17/14 02/22/14 Pb Su MD [address] [place] 372299 PCP - General 11/02/13 02/16/14 Pb Su MD [address] [place] 228199 PCP - General 09/30/13 11/01/13 Pb Su MD [address] [place] [address] PCP - General 06/10/13 09/29/13 Pb Su MD [address] [place] [address] PCP - General 04/05/13 06/09/13 Pb Su MD [address] [place] [address] PCP - General 09/24/12 04/04/13 Pb Su MD [address] [place] 9[address]779 PCP - General 06/11/12 09/23/12 Pb Su MD [address] [place] [address] PCP - General 01/02/12 06/10/12 documented as of this encounter
--- OUTSIDE RECORDS SUMMARY | 2024-11-14 22:25 | XMS_ITS | Encounter Summary ---
Author Organization [facility] Address [address] [place] [address]. [place], [place] [address] [place] [address] Care Team Providers Care Diagnostic Tech Name Role Phone Pb Su MD [...] Pb Su MD Primary Care Provider [phone] Pb Su MD Primary Care Provider +[phone] Pb Su MD Primary Care Provider Pb Su MD Primary Care Provider +[phone] Pb Su MD Primary Care Provider [phone] Sussy Zavala MD Primary Care Provider [phone] Fernie Erickson MD Primary Care Provider Unav ailable Encounter Details Date Type Department Care Team (Latest Contact Info) Description 10/01/2010 Abstract [facility] Social [...] filedocumented in this encounter Care Teams Diagnostic Tech Relationship Specialty Start Date End Date Pb Su MD [address] [place], [place] [id number] PCP - General 04/26/16 Pb Su MD [address] [place] 40310[address] PCP - General 05/19/15 04/25/16 Pb Su MD [address] [place] 87824269 PCP - General 12/07/14 05/18/15 Pb Su MD [address] [place] [address] PCP - General 12/05/14 12/06/14 Pb Su MD [address] [place] 681209 PCP - General 03/23/14 12/04/14 Pb Su MD [address] [place] 046799 PCP - General 03/21/14 03/22/14 Pb Su MD [address] [place] 64[address]79 PCP - General 03/16/14 03/20/14 Pb Su MD [address] [place] 320189 PCP - General 03/14/14 03/15/14 Pb Su MD [address] [place] 22[address]39 PCP - General 03/09/14 03/13/14 Pb Su MD [address] [place] 46[address]99 PCP - General 03/02/14 03/08/14 Pb Su MD [address] [place] [address] PCP - General 02/28/14 03/01/14 Pb Su MD [address] [place] [address] PCP - General 02/25/14 02/27/14 Pb Su MD [address] [place] 98[address]69 PCP - General 02/23/14 02/24/14 Pb Su MD [address] [place], [place] 847509 PCP - General 02/17/14 02/22/14 Pb Su MD [address] [place] [address] PCP - General 11/02/13 02/16/14 Pb Su MD [address] [place] 306309 PCP - General 09/30/13 11/01/13 Pb Su MD [address] [place] 195099 PCP - General 06/10/13 09/29/13 Pb Su MD [address] [place] [address] PCP - General 04/05/13 06/09/13 Pb Su MD [address] [place] [address] PCP - General 09/24/12 04/04/13 Pb Su MD [address] [place] [address] PCP - General 06/11/12 09/23/12 Pb Su MD [address] [place] [address] PCP - General 01/02/12 06/10/12 Pb Su MD [address] [place] [address] PCP - General 10/03/11 01/01/12 Sussy Zavala MD [address] [place] [address] PCP - General 08/05/11 10/02/11 Fernie Erickson MD [address] [place] [address] PCP - General 10/06/10 08/04/11 documented as of this encounter
--- OUTSIDE RECORDS SUMMARY | 2024-11-14 22:25 | XMS_ITS | Encounter Summary ---
Author Organization [facility] Address [address] [place] [address]. [place], [place] [address] [place] [address] Care Team Providers Care Sports Media Name Role Phone Pb Su MD Primary [...] 01/02/[address] [facility] [address] [place] [address] Marquise Salinas MD Social History Tobacco Use [...] apnea documented in this encounter Care Teams Sports Media Relationship Specialty Start Date End Date Pb Su MD [address] [place], [place] [id number] PCP - General 04/26/16 Pb Su MD [address] [place], [place] 44648269 PCP - General 05/19/15 04/25/16 Pb Su MD [address] [place], [place] 37669269 PCP - General 12/07/14 05/18/15 Pb Su MD [address] [place] [address] PCP - General 12/05/14 12/06/14 Pb Su MD [address] [place] 523149 PCP - General 03/23/14 12/04/14 Pb Su MD [address] [place] 270829 PCP - General 03/21/14 03/22/14 Pb Su MD [address] [place] 99[address]59 PCP - General 03/16/14 03/20/14 Pb Su MD [address] [place] 3638[address] PCP - General 03/14/14 03/15/14 Pb Su MD [address] [place] 114329 PCP - General 03/09/14 03/13/14 Pb Su MD [address] [place] [address] PCP - General 03/02/14 03/08/14 Pb Su MD [address] [place] [address] PCP - General 02/28/14 03/01/14 Pb Su MD [address] [place] 506479 PCP - General 02/25/14 02/27/14 Pb Su MD [address] [place] [address] PCP - General 02/23/14 02/24/14 Pb Su MD [address] [place] 4[address]79 PCP - General 02/17/14 02/22/14 Pb Su MD [address] [place] 9[address]99 PCP - General 11/02/13 02/16/14 Pb Su MD [address] [place] [address]139 PCP - General 09/30/13 11/01/13 Pb Su MD [address] [place] [address] PCP - General 06/10/13 09/29/13 Pb Su MD [address] [place] [address] PCP - General 04/05/13 06/09/13 Pb Su MD [address] [place] [address] PCP - General 09/24/12 04/04/13 Pb Su MD [address] [place] [address] PCP - General 06/11/12 09/23/12 Pb Su MD [address] [place] [address] PCP - General 01/02/12 06/10/12 documented as of this encounter
--- OUTSIDE RECORDS SUMMARY | 2024-11-14 22:25 | XMS_ITS | Encounter Summary ---
Author Organization [facility] Address [address] [place] [address]. [place], [place] [address] [place] [address] Care Team Providers Care Setter Off Name Role Phone Pb Su MD Primary [...] Pb Su MD Primary Care Provider [phone] Pb Su MD Primary Care Provider +[phone] Pb Su MD Primary Care Provider Pb Su MD Primary Care Provider +[phone] Pb Su MD Primary Care Provider [phone] Sussy Zavala MD Primary Care Provider [phone] Fernie Erickson MD Primary Care Provider Unav ailable Encounter Details Date Type Department Care Team (Latest Contact Info) Description 01/03/2011 Abstract [facility] Medical Group Social [...] on filedocumented in this encounter Care Teams Setter Off Relationship Specialty Start Date End Date Pb Su MD [address] [place], [place] [id number] PCP - General 04/26/16 Pb Su MD [address] [place], [place] 0[address]09269 PCP - General 05/19/15 04/25/16 Pb Su MD [address] [place] 48152269 PCP - General 12/07/14 05/18/15 Pb Su MD [address] [place] [address] PCP - General 12/05/14 12/06/14 Pb Su MD [address] [place] 441779 PCP - General 03/23/14 12/04/14 Pb Su MD [address] [place] 353739 PCP - General 03/21/14 03/22/14 Pb Su MD [address] [place], [place] 420049 PCP - General 03/16/14 03/20/14 Pb Su MD [address] [place] 9[address]479 PCP - General 03/14/14 03/15/14 Pb Su MD [address] [place] 9[address]489 PCP - General 03/09/14 03/13/14 Pb Su MD [address] [place] 250829 PCP - General 03/02/14 03/08/14 Pb Su MD [address] [place] [address] PCP - General 02/28/14 03/01/14 Pb Su MD [address] [place] [address] PCP - General 02/25/14 02/27/14 Pb Su MD [address] [place] 5[address] PCP - General 02/23/14 02/24/14 Pb Su MD [address] [place] 97[address] PCP - General 02/17/14 02/22/14 Pb Su MD [address] [place] [address] PCP - General 11/02/13 02/16/14 Pb Su MD [address] [place], [place] 2[address]39 PCP - General 09/30/13 11/01/13 Pb Su MD [address] [place], [place] 921139 PCP - General 06/10/13 09/29/13 Pb Su MD [address] [place] [address] PCP - General 04/05/13 06/09/13 Pb Su MD [address] [place] [address] PCP - General 09/24/12 04/04/13 Pb Su MD [address] [place] [address] PCP - General 06/11/12 09/23/12 Pb Su MD [address] [place] [address] PCP - General 01/02/12 06/10/12 Pb Su MD [address] [place] [address] PCP - General 10/03/11 01/01/12 Sussy Zavala MD [address] [place] [address] PCP - General 08/05/11 10/02/11 Fernie Erickson MD [address] [place] [address] PCP - General 10/06/10 08/04/11 documented as of this encounter
--- OUTSIDE RECORDS SUMMARY | 2024-11-14 22:25 | XMS_ITS | Encounter Summary ---
Author Organization [facility] Address [address] [place] [address]. [place], [place] [address] [place] [address] Care Team Providers Care Livestock Nutritionist Name Role Phone Pb Su MD Primary [...] Pb Su MD Primary Care Provider [phone] Pb Su MD Primary Care Provider [phone] Pb Su MD Primary Care Provider [phone] Pb Su MD Primary Care Provider +[phone] Pb Su MD Primary Care Provider [phone] Pb Su MD Primary Care Provider [phone] Sussy Zavala MD Primary Care Provider [phone] Fernie Erickson MD Primary Care Provider Unav ailable Encounter Details Date Type Department Care Team (Late st Contact Info) Description 04/13/2010 Abstract [facility] [address] [place], [place] [id number] Pb Su MD [address] [place], [place] 63[address]69 Social History Tobacco Use Types Packs/Day Years [...] on filedocumented in this encounter Care Teams Livestock Nutritionist Relationship Specialty Start Date End Date Pb Su MD [address] [place], [place] [address]609 PCP - General 04/26/16 Pb Su MD [address] [place], [place] 12[address] PCP - General 05/19/15 04/25/16 Pb Su MD [address] [place] [address] PCP - General 12/07/14 05/18/15 Pb Su MD [address] [place] [address] PCP - General 12/05/14 12/06/14 Pb Su MD [address] [place] [address] PCP - General 03/23/14 12/04/14 Pb Su MD [address] [place] [address] PCP - General 03/21/14 03/22/14 Pb Su MD [address] [place] [address] PCP - General 03/16/14 03/20/14 Pb Su MD [address] [place] 78[address]89 PCP - General 03/14/14 03/15/14 Pb Su MD [address] [place], [place] 191309 PCP - General 03/09/14 03/13/14 Pb Su MD [address] [place] [address] PCP - General 03/02/14 03/08/14 Pb Su MD [address] [place] [address] PCP - General 02/28/14 03/01/14 Pb Su MD [address] [place] [address] PCP - General 02/25/14 02/27/14 Pb Su MD [address] [place] [address] PCP - General 02/23/14 02/24/14 Pb Su MD [address] [place] [address] PCP - General 02/17/14 02/22/14 Pb Su MD [address] [place] [address] PCP - General 11/02/13 02/16/14 Pb Su MD [address] [place] 9[address]19 PCP - General 09/30/13 11/01/13 Pb Su MD [address] [place] [address] PCP - General 06/10/13 09/29/13 Pb Su MD [address] [place] [address] PCP - General 04/05/13 06/09/13 Pb Su MD [address] [place] [address] PCP - General 09/24/12 04/04/13 Pb Su MD [address] [place] [address] PCP - General 06/11/12 09/23/12 Pb Su MD [address] [place] [address] PCP - General 01/02/12 06/10/12 Pb Su MD [address] [place], [place] [address] PCP - General 10/03/11 01/01/12 Sussy Zavala MD [facility] [address] [place] [address] PCP - General 08/05/11 10/02/11 Fernie Erickson MD [facility]. [facility] [address] [place] [address] PCP - General 10/06/10 08/04/11 documented as of this encounter
--- OUTSIDE RECORDS SUMMARY | 2024-11-14 22:25 | XMS_ITS | Encounter Summary ---
Author Organization [facility] Address [address] [place] [address]. [place], [place] [address] [place] [address] Care Team Providers Care Pigment Pusher Name Role Phone Pb Su MD Primary [...] Pb Su MD Primary Care Provider [phone] Pb Su MD Primary Care Provider [phone] Pb Su MD Primary Care Provider [phone] Pb Su MD Primary Care Provider [phone] Pb Su MD Primary Care Provider [phone] Pb Su MD Primary Care Provider [phone] Encounter Details Date Type Department Care Team (Late st Contact Info) Description 11/11/[address] [facility] [place], [place] [id number] Pb Su MD [address] [place], [place] [address] Social History Tobacco Use Types Packs/Day Years Used Date Smoking Tobacco: Never Assessed Sex and Gender Information Value Date Recorded Sex Assigned at Not on file Legal Sex Male 7:22 PM CDT Gender Identity Not on file Sexual Orientation Not on file documented as of this encounter Plan of Treatment Not on file documented as of this encounter Visit Diagnoses Diagnosis Atrial fibrillation ([facility] Atrial fibrillation documented in this encounter Care Teams Pigment Pusher Relationship Specialty Start Date End Date Pb Su MD [address] [place], [place] [address] PCP - General 04/26/16 Pb Su MD [address] [place], [place] [address] PCP - General 05/19/15 04/25/16 Pb Su MD [address] [place] [address] PCP - General 12/07/14 05/18/15 Pb Su MD [address] [place], [place] [address] PCP - General 12/05/14 12/06/14 Pb Su MD [address] [place], [place] [id number] PCP - General 03/23/14 12/04/14 Pb Su MD [address] [place], [place] [address] PCP - General 03/21/14 03/22/14 Pb Su MD [address] [place], [place] [address] PCP - General 03/16/14 03/20/14 Pb Su MD [address] [place], [place] [address] PCP - General 03/14/14 03/15/14 Pb Su MD [address] [place], [place] [address] PCP - General 03/09/14 03/13/14 Pb Su MD [address] [place] [address] PCP - General 03/02/14 03/08/14 Pb Su MD [address] [place], [place] [address] PCP - General 02/28/14 03/01/14 Pb Su MD [address] [place], [place] [address] PCP - General 02/25/14 02/27/14 Pb Su MD [address] [place], [place] [address] PCP - General 02/23/14 02/24/14 Pb Su MD [address] [place], [place] [id number] PCP - General 02/17/14 02/22/14 Pb Su MD [address] [place], [place] [address] PCP - General 11/02/13 02/16/14 Pb Su MD [address] [place], [place] [address] PCP - General 09/30/13 11/01/13 Pb Su MD [address] [place] [address] PCP - General 06/10/13 09/29/13 Pb Su MD [address] [place] [address] PCP - General 04/05/13 06/09/13 Pb Su MD [address] [place], [place] [address] PCP - General 09/24/12 04/04/13 Pb Su MD [address] [place], [place] [address] PCP - General 06/11/12 09/23/12 Pb Su MD [address] [place], [place] [address] PCP - General 01/02/12 06/10/12 Pb Su MD [address] [place], [place] [address] PCP - General 10/03/11 01/01/12 documented as of this encounter
--- OUTSIDE RECORDS SUMMARY | 2024-11-14 22:25 | XMS_ITS | Encounter Summary ---
Author Organization [facility] Address [address] [place] [address]. [place], [place] [id number] [place] [address] Care Team Providers Care Picker Machine Operator Name Role Phone Pb Su [...] Pb Su MD Primary Care Provider [phone] Pb Su MD Primary Care Provider +[phone] Pb Su MD Primary Care Provider +[phone] Pb Su MD Primary Care Provider +[phone] Pb Su MD Primary Care Provider [phone] Sussy Zavala MD Primary Care Provider +[phone] Fernie Erickson MD Primary Care Provider Unav ailable Encounter Details Date Type Department Care Team (Late st Contact Info) Description 10/06/[address] [facility] [address] [place], [place] [id number] Pb Su MD [address] [place], [place] [address] Social History Tobacco Use Types Packs/Day Years [...] on filedocumented in this encounter Care Teams Picker Machine Operator Relationship Specialty Start Date End Date Pb Su MD [address] [place], [place] [address] PCP - General 04/26/16 Pb Su MD [address] [place], [place] 44[address]79 PCP - General 05/19/15 04/25/16 Pb Su MD [address] [place] [address] PCP - General 12/07/14 05/18/15 Pb Su MD [address] [place] [address] PCP - General 12/05/14 12/06/14 Pb Su MD [address] [place] [address] PCP - General 03/23/14 12/04/14 Pb Su MD [address] [place] [address] PCP - General 03/21/14 03/22/14 Pb Su MD [address] [place] [address] PCP - General 03/16/14 03/20/14 Pb Su MD [address] [place] [address]179 PCP - General 03/14/14 03/15/14 Pb Su MD [address] [place] [address] PCP - General 03/09/14 03/13/14 Pb Su MD [address] [place] [address] PCP - General 03/02/14 03/08/14 Pb Su MD [address] [place] [address] PCP - General 02/28/14 03/01/14 Pb Su MD [address] [place] [address] PCP - General 02/25/14 02/27/14 Pb Su MD [address] [place] [address] PCP - General 02/23/14 02/24/14 Pb Su MD [address] [place] [address]449 PCP - General 02/17/14 02/22/14 Pb Su MD [address] [place] 78[address] PCP - General 11/02/13 02/16/14 Pb Su MD [address] [place] [address]169 PCP - General 09/30/13 11/01/13 Pb Su MD [address] [place] [address] PCP - General 06/10/13 09/29/13 Pb Su MD [address] [place] 3[address]39 PCP - General 04/05/13 06/09/13 Pb Su MD [address] [place] [address] PCP - General 09/24/12 04/04/13 Pb Su MD [address] [place] [address] PCP - General 06/11/12 09/23/12 Pb Su MD [address] [place] [address] PCP - General 01/02/12 06/10/12 Pb Su MD [address] [place] 95[address] PCP - General 10/03/11 01/01/12 Sussy Zavala MD [facility] [address] [place] [address] PCP - General 08/05/11 10/02/11 Fernie Erickson MD [facility] [address] [place] [address] PCP - General 10/06/10 08/04/11 documented as of this encounter
--- OUTSIDE RECORDS SUMMARY | 2024-11-14 22:25 | XMS_ITS | Encounter Summary ---
Author Organization [facility] Address [address] [place] [address]. [place], [place] [address] [place] [address] Care Team Providers Care Tube Filler Name Role Phone Pb Su MD Primary [...] Pb Su MD Primary Care Provider [phone] Pb Su MD Primary Care Provider [phone] Pb Su MD Primary Care Provider bP Su MD Primary Care Provider Encounter Details Date Type Department Care Team (Late st Contact Info) Description 06/11/2012 Abstract [facility] [address] [place], [place] [id number] Pb Su MD [address] [place] [address] Social History Tobacco Use Types [...] unspecified documented in this encounter Care Teams Tube Filler Relationship Specialty Start Date End Date Pb Su MD [address] [place], [place] [id number] PCP - General 04/26/16 Pb Su MD [address] [place], [place] 47[address] PCP - General 05/19/15 04/25/16 Pb Su MD [address] [place] [address] PCP - General 12/07/14 05/18/15 Pb Su MD [address] [place] [address] PCP - General 12/05/14 12/06/14 Pb Su MD [address] [place] [address] PCP - General 03/23/14 12/04/14 Pb Su MD [address] [place] 7[address]99 PCP - General 03/21/14 03/22/14 Pb Su MD [address] [place] [address] PCP - General 03/16/14 03/20/14 Pb Su MD [address] [place] 8[address]309 PCP - General 03/14/14 03/15/14 Pb Su MD [address] [place] [address] PCP - General 03/09/14 03/13/14 Pb Su MD [address] [place] 149709 PCP - General 03/02/14 03/08/14 Pb Su MD [address] [place] [address] PCP - General 02/28/14 03/01/14 Pb Su MD [address] [place] 6[address]049 PCP - General 02/25/14 02/27/14 Pb Su MD [address] [place] 34[address]79 PCP - General 02/23/14 02/24/14 Pb Su MD [address] [place] 8[address]389 PCP - General 02/17/14 02/22/14 Pb Su MD [address] [place] [address] PCP - General 11/02/13 02/16/14 Pb Su MD [address] [place] 630489 PCP - General 09/30/13 11/01/13 Pb Su MD [address] [place] [address]119 PCP - General 06/10/13 09/29/13 Pb Su MD [address] [place] [address]019 PCP - General 04/05/13 06/09/13 Pb Su MD [address] [place], [place] [address] PCP - General 09/24/12 04/04/13 Pb Su MD [address] [place], [place] [address]29822[address] PCP - General 06/11/12 09/23/12 documented as of this encounter
--- OUTSIDE RECORDS SUMMARY | 2024-11-14 22:25 | XMS_ITS | Encounter Summary ---
Author Organization [facility] Address [address] [place] [address]. [place], [place] [address] [place] [address] Care Team Providers Care Outside Sales Engineer Name Role Phone Pb Su MD Primary Care Provider [phone] Pb Su MD Primary Care Provider Pb [...] Pb Su MD Primary Care Provider [phone] Pb Su MD Primary Care Provider Pb Su MD Primary Care Provider Encounter Details Date Type Department Care Team (Late st Contact Info) Description 03/09/[address] [facility] [address] [place] [address] Marquise Salinas MD Social History Tobacco Use [...] documented in this encounter Care Teams Outside Sales Engineer Relationship Specialty Start Date End Date Pb Su MD [address] [place], [place] [id number] PCP - General 04/26/16 Pb Su MD [address] [place], [place] 19840[address] PCP - General 05/19/15 04/25/16 Pb Su MD [address] [place], [place] [address] PCP - General 12/07/14 05/18/15 Pb Su MD [address] [place] [address] PCP - General 12/05/14 12/06/14 Pb Su MD [address] [place] [address] PCP - General 03/23/14 12/04/14 Pb Su MD [address] [place] 285339 PCP - General 03/21/14 03/22/14 Pb Su MD [address] [place] 5[address]379 PCP - General 03/16/14 03/20/14 Pb Su MD [address] [place] [address]199 PCP - General 03/14/14 03/15/14 Pb Su MD [address] [place] [address] PCP - General 03/09/14 03/13/14 Pb Su MD [address] [place] [address]279 PCP - General 03/02/14 03/08/14 Pb Su MD [address] [place] [address] PCP - General 02/28/14 03/01/14 Pb Su MD [address] [place] 0[address]39 PCP - General 02/25/14 02/27/14 Pb Su MD [address] [place] [address]139 PCP - General 02/23/14 02/24/14 Pb Su MD [address] [place] [address]139 PCP - General 02/17/14 02/22/14 Pb Su MD [address] [place] 78[address]79 PCP - General 11/02/13 02/16/14 Pb Su MD [address] [place] 349239 PCP - General 09/30/13 11/01/13 Pb Su MD [address] [place] [address]879 PCP - General 06/10/13 09/29/13 Pb Su MD [address] [place] [address] PCP - General 04/05/13 06/09/13 Pb Su MD [address] [place] [address] PCP - General 09/24/12 04/04/13 Pb Su MD [address] [place] [address]199 PCP - General 06/11/12 09/23/12 Pb Su MD [address] [place] [address] PCP - General 01/02/12 06/10/12 documented as of this encounter
--- OUTSIDE RECORDS SUMMARY | 2024-11-14 22:25 | XMS_ITS | Encounter Summary ---
Author Organization [facility] Address [address] [place] [address]. [place], [place] [address] [place] [address] Care Team Providers Care Bioinformatics Research Technician Name Role Phone Pb Su MD [...] Pb Su MD Primary Care Provider [phone] Pb Su MD Primary Care Provider [phone] Pb Su MD Primary Care Provider +[phone] Pb Su MD Primary Care Provider +[phone] Pb Su MD Primary Care Provider +[phone] Pb Su MD Primary Care Provider [phone] Sussy Zavala MD Primary Care Provider [phone] Fernie Erikcson MD Primary Care Provider Unav ailable Encounter Details Date Type Department Care Team (Late st Contact Info) Description 05/31/2011 Abstract [facility] [address] [place] [address] Pb Su MD [address] [place], [place] [address] Social History Tobacco Use Types Packs/Day Years [...] therapy documented in this encounter Care Teams Bioinformatics Research Technician Relationship Specialty Start Date End Date Pb Su MD [address] [place], [place] 94[address]99 PCP - General 04/26/16 Pb Su MD [address] [place], [place] 485269 PCP - General 05/19/15 04/25/16 Pb Su MD [address] [place] [address] PCP - General 12/07/14 05/18/15 Pb Su MD [address] [place] [address] PCP - General 12/05/14 12/06/14 Pb Su MD [address] [place] [address] PCP - General 03/23/14 12/04/14 Pb Su MD [address] [place] [address] PCP - General 03/21/14 03/22/14 Pb Su MD [address] [place] [address] PCP - General 03/16/14 03/20/14 Pb Su MD [address] [place] 5[address]259 PCP - General 03/14/14 03/15/14 Pb Su MD [address] [place] 3[address] PCP - General 03/09/14 03/13/14 bP Su MD [address] [place] [address] PCP - General 03/02/14 03/08/14 Pb Su MD [address] [place] [address] PCP - General 02/28/14 03/01/14 Pb Su MD [address] [place] [address] PCP - General 02/25/14 02/27/14 Pb Su MD [address] [place] [address] PCP - General 02/23/14 02/24/14 Pb Su MD [address] [place] 587289 PCP - General 02/17/14 02/22/14 Pb Su MD [address] [place] [address]379 PCP - General 11/02/13 02/16/14 Pb Su MD [address] [place] 189759 PCP - General 09/30/13 11/01/13 Pb Su MD [address] [place] [address] PCP - General 06/10/13 09/29/13 Pb Su MD [address] [place] [address]449 PCP - General 04/05/13 06/09/13 Pb Su MD [address] [place] [address] PCP - General 09/24/12 04/04/13 Pb Su MD [address] [place] [address] PCP - General 06/11/12 09/23/12 Pb Su MD [address] [place] [address] PCP - General 01/02/12 06/10/12 Pb Su MD [address] [place] [address]399 PCP - General 10/03/11 01/01/12 Sussy Zavala MD [facility] [address] [place] [address] PCP - General 08/05/11 10/02/11 Fernie Erickson MD [facility]. [facility] [address] [place] [address] PCP - General 10/06/10 08/04/11 documented as of this encounter
--- OUTSIDE RECORDS SUMMARY | 2024-11-14 22:25 | XMS_ITS | Encounter Summary ---
Author Organization [facility] Address [address] [place] [address]. [place], [place] [phone] [place] [address] Care Team Providers Care Dock Superintendent Name Role Phone Pb Su MD Primary Care Provider bP [...] Pb Su MD Primary Care Provider [phone] Pb Su MD Primary Care Provider +[phone] Pb Su MD Primary Care Provider +[phone] Pb Su MD Primary Care Provider +[phone] Pb Su MD Primary Care Provider +[phone] Sussy Zavala MD Primary Care Provider [phone] Fernie Erickson MD Primary Care Provider Unav ailable Encounter Details Date Type Department Care Team (Late st Contact Info) Description 03/07/[address] [facility] Diagnostic Imaging [address] [place], [place] [phone] Pb Su MD [address] [place], [place] 92[address] Social History Tobacco Use Types Packs/Day Years [...] on filedocumented in this encounter Care Teams Dock Superintendent Relationship Specialty Start Date End Date Pb Su MD [address] [place], [place] 503859 PCP - General 04/26/16 Pb Su MD [address] [place], [place] 5[address]29 PCP - General 05/19/15 04/25/16 Pb Su MD [address] [place] [address] PCP - General 12/07/14 05/18/15 Pb Su MD [address] [place] [address] PCP - General 12/05/14 12/06/14 Pb Su MD [address] [place] [address] PCP - General 03/23/14 12/04/14 Pb uS MD [address] [place] [address] PCP - General 03/21/14 03/22/14 Pb Su MD [address] [place] [address] PCP - General 03/16/14 03/20/14 bP Su MD [address] [place] 26[address]09 PCP - General 03/14/14 03/15/14 Pb Su MD [address] [place] [address] PCP - General 03/09/14 03/13/14 Pb Su MD [address] [place] [address] PCP - General 03/02/14 03/08/14 Pb Su MD [address] [place] [address] PCP - General 02/28/14 03/01/14 Pb Su MD [address] [place] [address] PCP - General 02/25/14 02/27/14 Pb Su MD [address] [place] [address] PCP - General 02/23/14 02/24/14 Pb Su MD [address] [place] 9[address] PCP - General 02/17/14 02/22/14 Pb Su MD [address] [place] [address]759 PCP - General 11/02/13 02/16/14 Pb Su MD [address] [place] [address] PCP - General 09/30/13 11/01/13 Pb Su MD [address] [place] [address] PCP - General 06/10/13 09/29/13 Pb Su MD [address] [place] [address]169 PCP - General 04/05/13 06/09/13 Pb Su MD [address] [place] [address] PCP - General 09/24/12 04/04/13 Pb Su MD [address] [place] [address] PCP - General 06/11/12 09/23/12 Pb Su MD [address] [place] [address] PCP - General 01/02/12 06/10/12 Pb Su MD [address] [place] 190029 PCP - General 10/03/11 01/01/12 Sussy Zavala MD [facility] [address] [place] [address] PCP - General 08/05/11 10/02/11 Fernie Erickson MD [facility] [place] [facility]. [facility] [address] [place] [address] PCP - General 10/06/10 08/04/11 documented as of this encounter
--- OUTSIDE RECORDS SUMMARY | 2024-11-14 22:25 | XMS_ITS | Encounter Summary ---
Author Organization [facility] Address [address] [place] [address]. [place], [place] [address] [place] [address] Care Team Providers Care Addictions Counselor Name Role Phone Pb Su MD [...] Pb Su MD Primary Care Provider [phone] Pb Su MD Primary Care Provider Encounter Details Date Type Department Care Team (Late st Contact Info) Description 10/03/[address] [facility] [address] [place] [address] Marquise Salinas MD Social History Tobacco Use [...] (pediatric) documented in this encounter Care Teams Addictions Counselor Relationship Specialty Start Date End Date Pb Su MD [address] [place], [place] [id number] PCP - General 04/26/16 Pb Su MD [address] [place], [place] 17928269 PCP - General 05/19/15 04/25/16 Pb Su MD [address] [place], [place] 0[address] PCP - General 12/07/14 05/18/15 Pb uS MD [address] [place] [address] PCP - General 12/05/14 12/06/14 Pb Su MD [address] [place], [place] [address]49 PCP - General 03/23/14 12/04/14 Pb Su MD [address] [place] [address] PCP - General 03/21/14 03/22/14 Pb Su MD [address] [place], [place] 59[address]39 PCP - General 03/16/14 03/20/14 Pb Su MD [address] [place] [address] PCP - General 03/14/14 03/15/14 Pb Su MD [address] [place] [address]479 PCP - General 03/09/14 03/13/14 Pb Su MD [address] [place] 268649 PCP - General 03/02/14 03/08/14 Pb Su MD [address] [place] [address] PCP - General 02/28/14 03/01/14 Pb Su MD [address] [place] [address] PCP - General 02/25/14 02/27/14 Pb Su MD [address] [place] [address] PCP - General 02/23/14 02/24/14 Pb Su MD [address] [place] [address] PCP - General 02/17/14 02/22/14 Pb Su MD [address] [place] [address] PCP - General 11/02/13 02/16/14 Pb Su MD [address] [place] [address] PCP - General 09/30/13 11/01/13 Pb Su MD [address] [place] [address] PCP - General 06/10/13 09/29/13 Pb uS MD [address] [place] [address] PCP - General 04/05/13 06/09/13 Pb Su MD [address] [place], [place] [address]69 PCP - General 09/24/12 04/04/13 Pb Su MD [address] [place] [address]659 PCP - General 06/11/12 09/23/12 Pb Su MD [address] [place], [place] 3[address]39 PCP - General 01/02/12 06/10/12 Pb Su MD [address] [place], [place] 39[address]29 PCP - General 10/03/11 01/01/12 documented as of this encounter
--- OUTSIDE RECORDS SUMMARY | 2024-11-14 22:25 | XMS_ITS | Encounter Summary ---
Author Organization [facility] Address [address] [place] [address]. [place], [place] [address] [place] [address] Care Team Providers Care Braille Operator Name Role Phone Pb Su MD [...] Pb Su MD Primary Care Provider +[phone] Pb Su MD Primary Care Provider [phone] Pb Su MD Primary Care Provider +[phone] Pb Su MD Primary Care Provider +[phone] Pb Su MD Primary Care Provider +[phone] Pb Su MD Primary Care Provider +[phone] Sussy Zavala MD Primary Care Provider [phone] Fernie Erickson MD Primary Care Provider Unav ailable Encounter Details Date Type Department Care Team (Late st Contact Info) Description 04/29/2011 Abstract [facility] [address] [place], [place] [id number] Pb Su MD [address] [place], [place] 557679 Social History Tobacco Use Types Packs/Day Years [...] Lumbago documented in this encounter Care Teams Braille Operator Relationship Specialty Start Date End Date Pb Su MD [address] [place], [place] [address] PCP - General 04/26/16 Pb Su MD [address] [place], [place] [address]309 PCP - General 05/19/15 04/25/16 Pb Su MD [address] [place] [address] PCP - General 12/07/14 05/18/15 Pb Su MD [address] [place], [place] [address]059 PCP - General 12/05/14 12/06/14 Pb Su MD [address] [place] [address] PCP - General 03/23/14 12/04/14 Pb Su MD [address] [place] [address] PCP - General 03/21/14 03/22/14 Pb Su MD [address] [place] 8[address]79 PCP - General 03/16/14 03/20/14 Pb Su MD [address] [place], [place] 80[address]39 PCP - General 03/14/14 03/15/14 Pb Su MD [address] [place] 9[address] PCP - General 03/09/14 03/13/14 Pb Su MD [address] [place] [address] PCP - General 03/02/14 03/08/14 Pb Su MD [address] [place] [address] PCP - General 02/28/14 03/01/14 Pb Su MD [address] [place] [address] PCP - General 02/25/14 02/27/14 Pb Su MD [address] [place] [address] PCP - General 02/23/14 02/24/14 Pb Su MD [address] [place] [address] PCP - General 02/17/14 02/22/14 Pb Su MD [address] [place] [address] PCP - General 11/02/13 02/16/14 Pb Su MD [address] [place] [address] PCP - General 09/30/13 11/01/13 Pb Su MD [address] [place] [address] PCP - General 06/10/13 09/29/13 Pb Su MD [address] [place], [place] 6[address]809 PCP - General 04/05/13 06/09/13 Pb Su MD [address] [place] [address] PCP - General 09/24/12 04/04/13 Pb Su MD [address] [place] [address] PCP - General 06/11/12 09/23/12 Pb Su MD [address] [place] [address] PCP - General 01/02/12 06/10/12 Pb Su MD [address] [place] [address] PCP - General 10/03/11 01/01/12 Sussy Zavala MD [facility] [address] [place] [address] PCP - General 08/05/11 10/02/11 Fernie Erickson MD [facility]. [place] [address] [place] [address] PCP - General 10/06/10 08/04/11 documented as of this encounter
--- OUTSIDE RECORDS SUMMARY | 2024-11-14 22:25 | XMS_ITS | Encounter Summary ---
Author Organization [facility] Address [address] [place] [address]. [place], [place] [id number] [place] [address] Care Team Providers Care Telegraph Printer Mechanic Name Role Phone Pb Su MD [...] Pb Su MD Primary Care Provider [phone] Pb Su MD Primary Care Provider [phone] Pb Su MD Primary Care Provider [phone] Pb Su MD Primary Care Provider +[phone] Pb Su MD Primary Care Provider [phone] Pb Su MD Primary Care Provider [phone] Sussy Zavala MD Primary Care Provider [phone] Fernie Erickson MD Primary Care Provider Unav ailable Encounter Details Date Type Department Care Team (Late st Contact Info) Description 08/13/2010 Abstract [facility] [address] [place], [place] [id number] Pb Su MD [address] [place], [place] [address] Social History Tobacco Use Types Packs/Day Years [...] on filedocumented in this encounter Care Teams Telegraph Printer Mechanic Relationship Specialty Start Date End Date Pb Su MD [address] [place], [place] [address]89 PCP - General 04/26/16 Pb Su MD [address] [place], [place] [address]309 PCP - General 05/19/15 04/25/16 Pb Su MD [address] [place] [address] PCP - General 12/07/14 05/18/15 Pb Su MD [address] [place] [address] PCP - General 12/05/14 12/06/14 Pb Su MD [address] [place] [address] PCP - General 03/23/14 12/04/14 Pb Su MD [address] [place] [address] PCP - General 03/21/14 03/22/14 Pb Su MD [address] [place] [address] PCP - General 03/16/14 03/20/14 Pb Su MD [address] [place], [place] [address]69 PCP - General 03/14/14 03/15/14 Pb Su MD [address] [place] [address] PCP - General 03/09/14 03/13/14 Pb Su MD [address] [place] [address] PCP - General 03/02/14 03/08/14 Pb Su MD [address] [place] [address] PCP - General 02/28/14 03/01/14 Pb Su MD [address] [place] [address] PCP - General 02/25/14 02/27/14 Pb Su MD [address] [place] [address] PCP - General 02/23/14 02/24/14 Pb Su MD [address] [place] [address] PCP - General 02/17/14 02/22/14 Pb Su MD [address] [place] [address] PCP - General 11/02/13 02/16/14 Pb Su MD [address] [place] [address] PCP - General 09/30/13 11/01/13 Pb uS MD [address] [place] [address] PCP - General 06/10/13 09/29/13 Pb Su MD [address] [place], [place] [address] PCP - General 04/05/13 06/09/13 Pb Su MD [address] [place] [address] PCP - General 09/24/12 04/04/13 Pb Su MD [address] [place] [address] PCP - General 06/11/12 09/23/12 Pb Su MD [address] [place] [address] PCP - General 01/02/12 06/10/12 Pb Su MD [address] [place] 8[address]99 PCP - General 10/03/11 01/01/12 Sussy [facility] MD [facility] [address] [place] [address] PCP - General 08/05/11 10/02/11 Fernie Erickson MD [facility]. [facility] [address] [place] [address] PCP - General 10/06/10 08/04/11 documented as of this encounter
--- OUTSIDE RECORDS SUMMARY | 2024-11-14 22:25 | XMS_ITS | Encounter Summary ---
Author Organization [facility] Address [address] [place] [address]. [place], [place] [address] [place] [address] Care Team Providers Care Boat Loader Name Role Phone Pb Su MD Primary [...] Pb Su MD Primary Care Provider [phone] Pb Su MD Primary Care Provider [phone] Pb Su MD Primary Care Provider +[phone] Pb Su MD Primary Care Provider [phone] Pb Su MD Primary Care Provider +[phone] Sussy Zavala MD Primary Care Provider [phone] Fernie Erickson MD Primary Care Provider Unav ailable Encounter Details Date Type Department Care Team (Late st Contact Info) Description 08/27/2007 Abstract [facility] Diagnostic Imaging [address] [place], [place] [id number] Pb Su MD [address] [place], [place] [address] Social History Tobacco Use Types Packs/Day Years [...] on filedocumented in this encounter Care Teams Boat Loader Relationship Specialty Start Date End Date Pb Su MD [address] [place], [place] 49[address]39 PCP - General 04/26/16 Pb Su MD [address] [place], [place] [address] PCP - General 05/19/15 04/25/16 Pb Su MD [address] [place] [address] PCP - General 12/07/14 05/18/15 Pb Su MD [address] [place] [address] PCP - General 12/05/14 12/06/14 Pb Su MD [address] [place] [address] PCP - General 03/23/14 12/04/14 Pb Su MD [address] [place] [address] PCP - General 03/21/14 03/22/14 Pb Su MD [address] [place] [address] PCP - General 03/16/14 03/20/14 Pb Su MD [address] [place] [address] PCP - General 03/14/14 03/15/14 Pb Su MD [address] [place] [address] PCP - General 03/09/14 03/13/14 Pb Su MD [address] [place] [address] PCP - General 03/02/14 03/08/14 Pb Su MD [address] [place] [address] PCP - General 02/28/14 03/01/14 Pb Su MD [address] [place] [address] PCP - General 02/25/14 02/27/14 Pb Su MD [address] [place] [address] PCP - General 02/23/14 02/24/14 Pb Su MD [address] [place], [place] [address]39 PCP - General 02/17/14 02/22/14 Pb Su MD [address] [place] [address] PCP - General 11/02/13 02/16/14 Pb Su MD [address] [place] [address] PCP - General 09/30/13 11/01/13 Pb Su MD [address] [place] [address] PCP - General 06/10/13 09/29/13 Pb Su MD [address] [place] [address]609 PCP - General 04/05/13 06/09/13 Pb Su MD [address] [place] [address] PCP - General 09/24/12 04/04/13 Pb Su MD [address] [place] [address] PCP - General 06/11/12 09/23/12 Pb Su MD [address] [place] [address] PCP - General 01/02/12 06/10/12 Pb Su MD [address] [place] 98[address] PCP - General 10/03/11 01/01/12 Sussy Zavala MD [facility] [address] [place] [address] PCP - General 08/05/11 10/02/11 Fernie Erickson MD [facility]. [facility] [address] [place] [address] PCP - General 10/06/10 08/04/11 documented as of this encounter
--- OUTSIDE RECORDS SUMMARY | 2024-11-14 22:25 | XMS_ITS | Encounter Summary ---
Author Organization [facility] Address [address] [place] [address]. [place], [place] [address] [place] [address] Care Team Providers Care Press And Blow Machine Tender Name Role Phone Pb Su [...] Pb Su MD Primary Care Provider +[phone] Pb Su MD Primary Care Provider [phone] Pb Su MD Primary Care Provider +[phone] Pb Su MD Primary Care Provider +[phone] Pb Su MD Primary Care Provider +[phone] Pb Su MD Primary Care Provider [phone] Sussy Zavala MD Primary Care Provider [phone] Fernie Erickson MD Primary Care Provider Unav ailable Encounter Details Date Type Department Care Team (Late st Contact Info) Description 10/06/2010 Abstract [facility] [place] [address] Delilah Biggs MD Social History Tobacco Use [...] Visit Diagnoses Diagnosis Atrial fibrillation ([facility]) Atrial fibrillation documented in this encounter Care Teams Press And Blow Machine Tender Relationship Specialty Start Date End Date Pb Su MD [address] [place], [place] [address] PCP - General 04/26/16 Pb Su MD [address] [place] [address] PCP - General 05/19/15 04/25/16 Pb Su MD [address] [place] [address] PCP - General 12/07/14 05/18/15 Pb Su MD [address] [place] [address] PCP - General 12/05/14 12/06/14 Pb Su MD [address] [place] [address] PCP - General 03/23/14 12/04/14 Pb Su MD [address] [place] [address] PCP - General 03/21/14 03/22/14 Pb Su MD [address] [place], [place] [address] PCP - General 03/16/14 03/20/14 Pb Su MD [address] [place] [address]129 PCP - General 03/14/14 03/15/14 Pb Su MD [address] [place] [address]029 PCP - General 03/09/14 03/13/14 Pb Su MD [address] [place] [address] PCP - General 03/02/14 03/08/14 Pb Su MD [address] [place] [address] PCP - General 02/28/14 03/01/14 Pb Su MD [address] [place] [address]329 PCP - General 02/25/14 02/27/14 Pb Su MD [address] [place] [address] PCP - General 02/23/14 02/24/14 Pb Su MD [address] [place] [address] PCP - General 02/17/14 02/22/14 Pb Su MD [address] [place] [address] PCP - General 11/02/13 02/16/14 Pb Su MD [address] [place] 5[address] PCP - General 09/30/13 11/01/13 Pb Su MD [address] [place] [address] PCP - General 06/10/13 09/29/13 Pb Su MD [address] [place] [address] PCP - General 04/05/13 06/09/13 Pb Su MD [address] [place] [address] PCP - General 09/24/12 04/04/13 Pb Su MD [address] [place] 7[address] PCP - General 06/11/12 09/23/12 Pb Su MD [address] [place] [address]479 PCP - General 01/02/12 06/10/12 Pb Su MD [address] [place] [address]119 PCP - General 10/03/11 01/01/12 Sussy Zavala MD [facility]. [facility] [address] [place] [address] PCP - General 08/05/11 10/02/11 Fernie Erickson MD [facility]. [facility] [address] [place] [address] PCP - General 10/06/10 08/04/11 documented as of this encounter
--- OUTSIDE RECORDS SUMMARY | 2024-11-14 22:25 | XMS_ITS | Encounter Summary ---
Author Organization [facility] Address [address] [place] [address]. [place], [place] [address] [place] [address] Care Team Providers Care Cashier Wrapper Name Role Phone Pb Su MD Primary [...] Pb Su MD Primary Care Provider [phone] Pb Su MD Primary Care Provider +[phone] Pb Su MD Primary Care Provider +[phone] Pb Su MD Primary Care Provider +[phone] Pb Su MD Primary Care Provider +[phone] Sussy Zavala MD Primary Care Provider [phone] Fernie Erickson MD Primary Care Provider Unav ailable Encounter Details Date Type Department Care Team (Late st Contact Info) Description 12/05/2009 Abstract [facility] Diagnostic Imaging [address] [place], [place] [id number] Pb Su MD [address] [place], [place] [address]239 Social History Tobacco Use Types Packs/Day Years [...] on filedocumented in this encounter Care Teams Cashier Wrapper Relationship Specialty Start Date End Date Pb Su MD [address] [place], [place] [address]289 PCP - General 04/26/16 Pb Su MD [address] [place], [place] 97[address] PCP - General 05/19/15 04/25/16 Pb Su MD [address] [place] [address] PCP - General 12/07/14 05/18/15 Pb Su MD [address] [place] [address] PCP - General 12/05/14 12/06/14 Pb Su MD [address] [place] [address] PCP - General 03/23/14 12/04/14 Pb Su MD [address] [place] [address] PCP - General 03/21/14 03/22/14 Pb Su MD [address] [place] [address] PCP - General 03/16/14 03/20/14 Pb Su MD [address] [place] [address] PCP - General 03/14/14 03/15/14 Pb Su MD [address] [place] 9[address]299 PCP - General 03/09/14 03/13/14 Pb Su MD [address] [place] [address] PCP - General 03/02/14 03/08/14 Pb Su MD [address] [place] [address] PCP - General 02/28/14 03/01/14 Pb Su MD [address] [place] [address] PCP - General 02/25/14 02/27/14 Pb Su MD [address] [place] [address] PCP - General 02/23/14 02/24/14 Pb Su MD [address] [place], [place] 501289 PCP - General 02/17/14 02/22/14 Pb Su MD [address] [place] [address]39 PCP - General 11/02/13 02/16/14 Pb Su MD [address] [place] [address]889 PCP - General 09/30/13 11/01/13 Pb Su MD [address] [place] [address] PCP - General 06/10/13 09/29/13 Pb Su MD [address] [place] [address]119 PCP - General 04/05/13 06/09/13 Pb Su MD [address] [place] [address] PCP - General 09/24/12 04/04/13 Pb Su MD [address] [place] [address] PCP - General 06/11/12 09/23/12 Pb Su MD [address] [place] [address] PCP - General 01/02/12 06/10/12 Pb Su MD [address] [place] [address] PCP - General 10/03/11 01/01/12 Sussy Zavala MD [facility] [address] [place] [address] PCP - General 08/05/11 10/02/11 Fernie Erickson MD [facility]. [facility] [address] [place] [address] PCP - General 10/06/10 08/04/11 documented as of this encounter
--- OUTSIDE RECORDS SUMMARY | 2024-11-14 22:25 | XMS_ITS | Encounter Summary ---
Author Organization [facility] Address [address] [place] [address]. [place], [place] [address] [place] [address] Care Team Providers Care Asphalt Plant Operator Name Role Phone Pb Su MD [...] Pb Su MD Primary Care Provider [phone] Pb uS MD Primary Care Provider [phone] Pb Su MD Primary Care Provider +[phone] Pb Su MD Primary Care Provider +[phone] Pb Su MD Primary Care Provider [phone] Pb Su MD Primary Care Provider [phone] Sussy Zavala MD Primary Care Provider [phone] Fernie Erickson MD Primary Care Provider Unav ailable Encounter Details Date Type Department Care Team (Late st Contact Info) Description 08/20/2010 Abstract [facility] [address] [place], [place] [id number] Pb Su MD [address] [place], [place] [address] Social History Tobacco Use Types Packs/Day Years [...] on filedocumented in this encounter Care Teams Asphalt Plant Operator Relationship Specialty Start Date End Date Pb Su MD [address] [place], [place] [address] PCP - General 04/26/16 Pb Su MD [address] [place], [place] [address] PCP - General 05/19/15 04/25/16 Pb Su MD [address] [place] [address] PCP - General 12/07/14 05/18/15 Pb Su MD [address] [place], [place] [address]269 PCP - General 12/05/14 12/06/14 Pb Su MD [address] [place] [address] PCP - General 03/23/14 12/04/14 Pb Su MD [address] [place] [address] PCP - General 03/21/14 03/22/14 Pb Su MD [address] [place], [place] [address] PCP - General 03/16/14 03/20/14 Pb Su MD [address] [place], [place] 521039 PCP - General 03/14/14 03/15/14 Pb Su MD [address] [place], [place] [address] PCP - General 03/09/14 03/13/14 Pb Su MD [address] [place] [address] PCP - General 03/02/14 03/08/14 Pb Su MD [address] [place] [address] PCP - General 02/28/14 03/01/14 Pb Su MD [address] [place] [address] PCP - General 02/25/14 02/27/14 Pb Su MD [address] [place] [address] PCP - General 02/23/14 02/24/14 Pb Su MD [address] [place] [address] PCP - General 02/17/14 02/22/14 Pb Su MD [address] [place] [address] PCP - General 11/02/13 02/16/14 Pb Su MD [address] [place] [address]239 PCP - General 09/30/13 11/01/13 Pb Su MD [address] [place] [address] PCP - General 06/10/13 09/29/13 Pb Su MD [address] [place] [address] PCP - General 04/05/13 06/09/13 Pb Su MD [address] [place] [address] PCP - General 09/24/12 04/04/13 Pb Su MD [address] [place] [address] PCP - General 06/11/12 09/23/12 Pb Su MD [address] [place] [address] PCP - General 01/02/12 06/10/12 Pb Su MD [address] [place] [address]759 PCP - General 10/03/11 01/01/12 Sussy Zavala MD [facility] [address] [place] [address] PCP - General 08/05/11 10/02/11 Fernie Erickson MD [facility]. [facility] [address] [place] [address] PCP - General 10/06/10 08/04/11 documented as of this encounter
--- OUTSIDE RECORDS SUMMARY | 2024-11-14 22:25 | XMS_ITS | Encounter Summary ---
Author Organization [facility] Address [address] [place] [address]. [place], [place] [address] [place] [address] Care Team Providers Care Inspector Cold Working Name Role Phone Pb Su MD Primary [...] Pb Su MD Primary Care Provider [phone] Pb Su MD Primary Care Provider +[phone] Pb Su MD Primary Care Provider +[phone] Pb Su MD Primary Care Provider +[phone] Pb Su MD Primary Care Provider [phone] Sussy Zavala MD Primary Care Provider [phone] Encounter Details Date Type Department Care Team (Late st Contact Info) Description 08/05/[address] [facility] [address] [place] [address] Marquise Salinas MD Social History Tobacco Use [...] apnea documented in this encounter Care Teams Inspector Cold Working Relationship Specialty Start Date End Date Pb Su MD [address] [place], [place] 102[address] PCP - General 04/26/16 Pb Su MD [address] [place], [place] [address] PCP - General 05/19/15 04/25/16 Pb Su MD [address] [place], [place] [address] PCP - General 12/07/14 05/18/15 Pb Su MD [address] [place] [address] PCP - General 12/05/14 12/06/14 Pb Su MD [address] [place] [address] PCP - General 03/23/14 12/04/14 Pb Su MD [address] [place] [address] PCP - General 03/21/14 03/22/14 Pb Su MD [address] [place] [address]189 PCP - General 03/16/14 03/20/14 Pb Su MD [address] [place] [address] PCP - General 03/14/14 03/15/14 Pb Su MD [address] [place], [place] [address]969 PCP - General 03/09/14 03/13/14 Pb Su MD [address] [place], [place] [address]6789 PCP - General 03/02/14 03/08/14 Pb Su MD [address] [place] [address] PCP - General 02/28/14 03/01/14 Pb uS MD [address] [place] [address] PCP - General 02/25/14 02/27/14 Pb Su MD [address] [place] [address] PCP - General 02/23/14 02/24/14 Pb Su MD [address] [place] [address] PCP - General 02/17/14 02/22/14 Pb Su MD [address] [place] [address] PCP - General 11/02/13 02/16/14 Pb Su MD [address] [place] [address] PCP - General 09/30/13 11/01/13 Pb Su MD [address] [place] [address] PCP - General 06/10/13 09/29/13 Pb Su MD [address] [place] [address] PCP - General 04/05/13 06/09/13 Pb Su MD [address] [place] [address] PCP - General 09/24/12 04/04/13 Pb Su MD [address] [place] [address] PCP - General 06/11/12 09/23/12 Pb Su MD [address] [place] [address] PCP - General 01/02/12 06/10/12 Pb Su MD [address] [place], [place] [address] PCP - General 10/03/11 01/01/12 Sussy Zavala MD [facility]. [facility] [address] [place], [place] [address] PCP - General 08/05/11 10/02/11 documented as of this encounter
--- OUTSIDE RECORDS SUMMARY | 2024-11-14 22:25 | XMS_ITS | Encounter Summary ---
Author Organization [facility] Address [address] [place] [address]. [place], [place] [address] [place] [address] Care Team Providers Care Tunnel Inspector Name Role Phone Pb Su MD Primary Care Provider [phone] Pb Su MD Primary Care Provider Pb [...] Pb Su MD Primary Care Provider [phone] Pb Su MD Primary Care Provider [phone] Pb Su MD Primary Care Provider +[phone] Pb Su MD Primary Care Provider +[phone] Pb Su MD Primary Care Provider [phone] Sussy Zavala MD Primary Care Provider [phone] Fernie Erickson MD Primary Care Provider Unav ailable Encounter Details Date Type Department Care Team (Late st Contact Info) Description 12/16/2008 Abstract [facility] [address] [place], [place] [phone] Pb Su MD [address] [place], [place] [address] Social History Tobacco Use Types Packs/Day Years [...] on filedocumented in this encounter Care Teams Tunnel Inspector Relationship Specialty Start Date End Date Pb Su MD [address] [place], [place] [address] PCP - General 04/26/16 Pb Su MD [address] [place], [place] [address] PCP - General 05/19/15 04/25/16 Pb Su MD [address] [place] [address] PCP - General 12/07/14 05/18/15 Pb Su MD [address] [place] [address] PCP - General 12/05/14 12/06/14 Pb Su MD [address] [place] [address] PCP - General 03/23/14 12/04/14 Pb Su MD [address] [place] [address] PCP - General 03/21/14 03/22/14 Pb Su MD [address] [place] [address] PCP - General 03/16/14 03/20/14 Pb Su MD [address] [place], [place] [address]649 PCP - General 03/14/14 03/15/14 Pb Su MD [address] [place] [address] PCP - General 03/09/14 03/13/14 Pb Su MD [address] [place] [address] PCP - General 03/02/14 03/08/14 Pb Su MD [address] [place] [address] PCP - General 02/28/14 03/01/14 Pb Su MD [address] [place] [address] PCP - General 02/25/14 02/27/14 Pb Su MD [address] [place] [address] PCP - General 02/23/14 02/24/14 Pb Su MD [address] [place] [address] PCP - General 02/17/14 02/22/14 Pb Su MD [address] [place] [address] PCP - General 11/02/13 02/16/14 Pb Su MD [address] [place] [address] PCP - General 09/30/13 11/01/13 Pb Su MD [address] [place] [address] PCP - General 06/10/13 09/29/13 Pb Su MD [address] [place] [address] PCP - General 04/05/13 06/09/13 Pb Su MD [address] [place] [address] PCP - General 09/24/12 04/04/13 Pb Su MD [address] [place] [address] PCP - General 06/11/12 09/23/12 Pb Su MD [address] [place] [address] PCP - General 01/02/12 06/10/12 Pb Su MD [address] [place], [place] [id number] PCP - General 10/03/11 01/01/12 Sussy Zavala MD [facility] [address] [place] [address] PCP - General 08/05/11 10/02/11 Fernie Erickson MD [facility] [address] [place] [address] PCP - General 10/06/10 08/04/11 documented as of this encounter
--- OUTSIDE RECORDS SUMMARY | 2024-11-14 22:34 | XMS_ITS | Encounter Summary ---
Author Organization [facility] Address [address] [place] [id number] Care Team Providers Care Covering Machine Operator Helper Name Role Phone Unavailable Primary Care Provider Unavailabl e Encounter Details Date Type Department Care Team (Late st Contact Info) Description 11/04/2020 Lab Requisition [facility] [place] [facility] Community Testing [facility] [address] [place] [address] Pierre Part, [place] [address] [place] [address] Social History Tobacco Use Types Packs/Day Years Used Date Smoking Tobacco: Never Assessed Sex and Gender Information Value Date Recorded Sex Assigned at Not on file Legal Sex Male 8:21 AM ONLINE ADVERTISING ANALYST Gender Identity Not on file Sexual Orientation Not on file documented as of this encounter Plan of Treatment Not on file documented as of this encounter Procedures Procedure Name Priority Date/Time Associated Diagnosis Comments SARS-COV-2 PCR [facility] ONLY Routine 11/04/2020 8:48 AM ONLINE ADVERTISING ANALYST documented in this encounter Visit Diagnoses Not on filedocumented in this encounter
--- OUTSIDE RECORDS SUMMARY | 2024-11-14 22:34 | XMS_ITS | Encounter Summary ---
Author Organization [facility] Address [address] [place] [address] Care Team Providers Care Engineering Program Manager Name Role Phone Unavailable Primary Care Provider Unavailabl e Encounter Details Date Type Department Care Team (Late st Contact Info) Description 11/04/2020 9:00 AM DAIRY POWDER MIXER OPERATOR Rapid Evaluation [place] [facility] Community Testing [address] [address] Social History Tobacco Use Types Packs/Day Years Used Date Smoking Tobacco: Never Assessed Sex and Gender Information Value Date Recorded Sex Assigned at Not on file Legal Sex Male 8:21 AM DAIRY POWDER MIXER OPERATOR Gender Identity Not on file Sexual Orientation Not on file documented as of this encounter Plan of Treatment Not on file documented as of this encounter Visit Diagnoses Not on filedocumented in this encounter
--- OUTSIDE RECORDS SUMMARY | 2024-11-14 22:34 | XMS_ITS | Clinical Summary ---
Author Organization 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
--- OUTSIDE RECORDS SUMMARY | 2024-11-14 22:34 | XMS_ITS | Encounter Summary ---
Author Organization [facility] Address [address] [place] [address] Care Team Providers Care Er Medical Technician Name Role Phone Unavailable Primary Care Provider Unavailabl e Encounter Details Date Type Department Care Team (Late st Contact Info) Description 11/11/2020 9:00 AM CATALYST PLANT SUPERVISOR Rapid Evaluation [place] [facility] Community Testing [address] [address] Social History Tobacco Use Types Packs/Day Years Used Date Smoking Tobacco: Never Assessed Sex and Gender Information Value Date Recorded Sex Assigned at Not on file Legal Sex Male 8:21 AM CATALYST PLANT SUPERVISOR Gender Identity Not on file Sexual Orientation Not on file documented as of this encounter Plan of Treatment Not on file documented as of this encounter Visit Diagnoses Not on filedocumented in this encounter
--- OUTSIDE RECORDS SUMMARY | 2024-11-14 22:34 | XMS_ITS | Encounter Summary ---
Author Organization [facility] Address [address] [place] [address] Care Team Providers Care Shipping Coordinator Name Role Phone Unavailable Primary Care Provider Unavailabl e Encounter Details Date Type Department Care Team (Late st Contact Info) Description 11/11/2020 Lab Requisition [facility] Community Testing [facility] [address] [place] [address] [place] [address] [place] [address] Social History Tobacco Use Types Packs/Day Years Used Date Smoking Tobacco: Never Assessed Sex and Gender Information Value Date Recorded Sex Assigned at Not on file Legal Sex Male 8:21 AM FINANCIAL ECONOMIST Gender Identity Not on file Sexual Orientation Not on file documented as of this encounter Plan of Treatment Not on file documented as of this encounter Procedures Procedure Name Priority Date/Time Associated Diagnosis Comments SARS-COV-2 PCR [facility] ONLY Routine 11/11/2020 10:31 AM FINANCIAL ECONOMIST documented in this encounter Visit Diagnoses Not on filedocumented in this encounter
--- OUTSIDE RECORDS SUMMARY | 2024-11-15 05:08 | XMS_ITS | Continuity of Care Document ---
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 It does not include entries that were removed or entered in error. Problem Status Onset Date Problem Type Date of Resolution Comments Source joint pain, localized in the knee Active Condition DoD patellofemoral syndrome Active Condition DoD trapezius muscle strain Inactive Condition [facility] visit for: services physical separation Inactive Condition Recurrent knee pain as noted., else no known duty related injuries or illnesses at this time [facility] joint instability ankle / foot Active Condition [facility] Other Physical Therapy Active Condition DoD Medications Combined list of outpatient medications from Department of [employer] [facility] and Veterans [facility] facilities.Medications provided include 1) outpatient medications from the last 15 months, and 2) patient-reported medications. Medication Details Route Status Patient Instructions Prescription Expires Prescription Number Last Dispense Date Ordering Provider Order Date Order Qty Source FLUARIX QUAD [id number] (influenza virus vaccine quadrival [id number](6 mos and up)/PF), 60MCG/.5ML, SYRINGE, INTRAMUSC, GLAXOSMITHK LINE, .5 ml SYRINGE Active [id number] 2022 0.5 Pharmac y Data Transac tion Service Facilit y ROSUVASTATI N CALCIUM (rosuvastat in calcium), 5 MG, TABLET, ORAL, CAMBER PHARMACE, 90 ea. BOTTLE Active [id number] 4 2023 90 Pharmac y Data Transac tion Service Facilit y ROSUVASTATI N CALCIUM (rosuvastat in calcium), 5 MG, TABLET, ORAL, CAMBER PHARMACE, 90 ea. BOTTLE Active [id number] 4 2023 90 Pharmac y Data Transac tion Service Facilit y Allergies, Adverse Reactions, Alerts Combined list of allergies from Department of [employer] [facility] and Veterans Affairs facilities. It does not include entries that were removed or entered in error. Substance Category Reaction Severity Reaction type Status Date Reported Comments Source ACETAMINOPHEN W-CODEINE (CODEINE PHOS/ACETAMINOP HEN) Drug allergy (disorder) Unknown active [address] [place] [address] Medical Group Immunizations Combined list of available immunizations from the Department of Defense and Veterans Affairs facilities. Immunization Series Date Given Administered By Site Reaction Lot Number CVX Code Drug Tours Hostess Status Comments Source COVID-19, mRNA, LNP-S, PF, [...] antigen)-reti red CODE 1 2005 Unknown, Provider [id number] [facility] complet ed influenza virus vaccine, split virus (incl. purified surface antigen)- retired CODE DoD influenza virus vaccine, split virus (incl. purified surface antigen)-reti red CODE 1 2004 AP [id number] Sanofi Pasteur ([facility]) complet ed influenza virus vaccine, split virus (incl. purified surface antigen)- retired CODE DoD influenza virus vaccine, split virus (incl. purified surface antigen)-reti red CODE 0 2004 [id number] Sanofi Pasteur ([facility]) complet ed influenza virus vaccine, split virus (incl. purified surface antigen)- retired CODE DoD influenza virus vaccine, whole virus 0 2002 [id number] [employer] (PWJ) complet ed influenza virus vaccine, whole virus DoD influenza virus vaccine, whole virus 0 2001 [id number] Sanofi Pasteur ([facility]) complet ed influenza virus vaccine, whole virus DoD yellow fever vaccine 0 2001 [id number] [place] (CON) complet ed yellow fever vaccine DoD varicella virus vaccine 0 2001 POS HX 21 () Not Given varicella virus vaccine DoD typhoid Vi capsular polysaccharid e vaccine 0 2001 [id number] Sanofi Pasteur ([facility]) complet ed typhoid Vi capsular polysacch aride vaccine DoD tuberculin skin test; purified protein derivative solution, intradermal 1 2001 Unknown, Provider [id number] Sanofi Pasteur ([facility]) complet ed tuberculi n skin test; purified protein derivativ e solution, intraderm al DoD influenza virus vaccine, whole virus 0 2000 [id number] Sanofi Pasteur ([facility]) complet ed influenza virus vaccine, whole virus DoD influenza virus vaccine, whole virus 0 [id number] [employer] (Inactive) ([place]) complet ed influenza virus vaccine, whole virus DoD hepatitis A vaccine, adult dosage 2 1998 [id number] [employer] ([facility]) complet ed hepatitis A vaccine, adult dosage DoD tuberculin skin test; purified protein derivative solution, intradermal 1 1998 Unknown, Provider [phone] [facility] ([facility]) complet ed tuberculi n skin test; purified protein derivativ e solution, intraderm al DoD influenza virus vaccine, whole virus 0 [id number] 16 [employer] (Inactive) ([place]) complet ed influenza virus vaccine, whole virus DoD tetanus and diphtheria toxoids, adsorbed, preservative free, for adult use (2 Lf of tetanus toxoid and 2 Lf of diphtheria toxoid) 0 1996 [id number] Kerrie (LED) comple t ed tetanus and diphtheri a toxoids, adsorbed, preservat lamont free, for adult use (2 Lf of tetanus toxoid and 2 Lf of diphtheri a toxoid) DoD influenza virus vaccine, whole virus 0 [id number] 16 [employer] (Inactive) ([place]) complet ed influenza virus vaccine, whole virus DoD typhoid vaccine, parenteral, other than acetone-kille d, dried 0 1996 [id number] Merieux (IM) complet ed typhoid vaccine, parentera l, other than acetone-k illed, dried DoD hepatitis A vaccine, adult dosage 1 1996 [id number] Merck (MSD) complet ed hepatitis A vaccine, adult dosage DoD influenza virus vaccine, whole virus 0 1995 [id number] 16 Kerrie (LED) comple t ed influenza [...] Source [employer](Phy sical Therapy) OUTPATIENT [id number] Left Ankle Aircast SABINE SPEARS 03/11 Released w/o Limitations [employer](P hysical Therapy ) [employer](Phy sical Therapy Resource Source) OUTPATIENT [id number] MIKE LARSON 03/19 Released w/o Limitations [employer](P hysical Therapy Resourc e Source) [employer](Phy sical Therapy Resource Source) OUTPATIENT [id number] SERENITY ALMARAZ 03/21 Released w/o Limitations [employer](P hysical Therapy Resourc e Source) [employer](Phy sical Therapy Resource Source) OUTPATIENT [id number] SERENITY ALMARAZ 03/25 Released w/o Limitations [employer](P hysical Therapy Resourc e Source) [employer] OUTPATIENT [id number] 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 MAIRUSZ BALL 03/27 Released w/o Limitations [employer](X Primary Practic e Clinic Part) [employer](Phy sical Therapy Resource Source) OUTPATIENT [id number] SERENITY ALMARAZ 03/31 Released w/o Limitations [employer](P hysical Therapy Resourc e Source) [employer](Phy sical Therapy Resource Source) OUTPATIENT [id number] SERENITY ALMARAZ 04/03 Released w/o Limitations [employer](P hysical Therapy Resourc e Source) [employer](Phy sical Therapy Resource Source) OUTPATIENT [id number] MIKE Eddy 04/08 Released w/o Limitations [employer](P hysical Therapy Resourc e Source) [employer](Phy sical Therapy) OUTPATIENT [id number] SABINE SPEARS 04/14 Released w/o Limitations [employer](P hysical Therapy ) [employer](Phy sical Therapy Resource Source) OUTPATIENT [id number] SERENITY ALMARAZ 04/28 Released w/o Limitations [employer](P hysical Therapy Resourc e Source) [employer](Phy sical Therapy Resource Source) OUTPATIENT [id number] SERENITY ALMARAZ 04/30 Released w/o Limitations [employer](P hysical Therapy Resourc e Source) [employer](Phy sical Therapy Resource Source) OUTPATIENT [id number] MIKE LARSON 05/14 Released w/o Limitations [employer](P hysical Therapy Resourc e Source) [employer] ([facility]) OUTPATIENT [id number] back/ne ck pain x 1wk. no injury AFTAB FONTENOT 10/30 Released w/o Limitations [employer] [place] ([facility]) [employer] ([facility])(Phy sical Therapy) OUTPATIENT [id number] Pas entered the order JODY ZAMORA 04/29 Released w/o Limitations [employer] [place] ([facility]P hysical Therapy ) [employer] [place] ([facility]Phy sical Therapy) OUTPATIENT [id number] DILEEP PHILLIPS 05/02 Released w/o Limitations [employer] [facility]P hysical Therapy ) [employer] [facility]Phy sical Therapy) OUTPATIENT [id number] GALLARDO JULIO Dorian 05/04 Released w/o Limitations [employer] ([facility])(P hysical Therapy ) [employer] ([facility]Phy sical Therapy) OUTPATIENT [id number] DILEEP PHILLIPS 05/09 Released w/o Limitations [employer] ([facility]P hysical Therapy ) [employer] ([facility]Phy sical Therapy) OUTPATIENT [id number] CARLA HAIRSTON 05/12 Released w/o Limitations [employer] ([facility]P hysical Therapy ) [employer] ([facility]Phy sical Therapy) OUTPATIENT [id number] CARLA HAIRSTON 05/16 Released w/o Limitations [employer] ([facility])(P hysical Therapy ) [employer] ([facility]Phy sical Therapy) OUTPATIENT [id number] DILEEP PHILLIPS 05/18 Released w/o Limitations [employer] ([facility]P hysical Therapy ) [employer] ([facility]Phy sical Therapy) OUTPATIENT [id number] JODY ZAMORA 05/20 Released w/o Limitations [employer] ([facility]P hysical Therapy ) [facility] Outpatient Encounter [id number] 05/24 [facility] Procedures Combined list of: 1) Procedures from Department of Veterans Affairs facilities going back up to thelast 18 months, not all VA non-surgical procedures are included; 2) All procedures from the Department of Defense facilities. Procedure Procedure Type Code Date Perfomer Comments [facility] e PHYSICAL THERAPY RE-EVALUATION 8 [facility] THERAPEUTIC PROCEDURE, 1 OR MORE AREAS, EACH 15 MINUTES; THERAPEUTIC EXERCISES TO DEVELOP STRENGTH AND ENDURANCE, RANGE OF MOTION AND FLEXIBILITY 8 [facility] THERAPEUTIC PROCEDURE, 1 OR MORE AREAS, EACH 15 MINUTES; THERAPEUTIC EXERCISES TO DEVELOP STRENGTH AND ENDURANCE, RANGE OF MOTION AND FLEXIBILITY 8 [facility] THERAPEUTIC PROCEDURE, 1 OR MORE AREAS, EACH 15 MINUTES; THERAPEUTIC EXERCISES TO DEVELOP STRENGTH AND ENDURANCE, RANGE OF MOTION AND FLEXIBILITY 8 [facility] THERAPEUTIC PROCEDURE, 1 OR MORE AREAS, EACH 15 MINUTES; THERAPEUTIC EXERCISES TO DEVELOP STRENGTH AND ENDURANCE, RANGE OF MOTION AND FLEXIBILITY 8 DoD THERAPEUTIC PROCEDURE, 1 OR MORE AREAS, EACH 15 MINUTES; THERAPEUTIC EXERCISES TO DEVELOP STRENGTH AND ENDURANCE, RANGE OF MOTION AND FLEXIBILITY 8 [facility] THERAPEUTIC PROCEDURE, 1 OR MORE AREAS, EACH 15 MINUTES; THERAPEUTIC EXERCISES TO DEVELOP STRENGTH AND ENDURANCE, RANGE OF MOTION AND FLEXIBILITY 8 [facility] PHYSICAL THERAPY EVALUATION 8 DoD THERAPEUTIC [...] MORE AREAS; HOT OR COLD PACKS 6 [facility] PHYSICAL THERAPY EVALUATION 6 DoD ANKLE CONTROL ORTHOSIS, STIRRUP STYLE, RIGID, INCLUDES ANY TYPE INTERFACE (E.G., PNEUMATIC, GEL), PREFABRICATED, [id number] 6 [facility] THERAPEUTIC PROCEDURE, 1 OR MORE AREAS, EACH 15 MINUTES; THERAPEUTIC EXERCISES TO DEVELOP STRENGTH AND ENDURANCE, RANGE OF MOTION AND FLEXIBILITY 5 DoD MANUAL THERAPY TECHNIQUES (EG, MOBILIZATION/ MANIPULATION, MANUAL LYMPHATIC DRAINAGE, MANUAL TRACTION), 1 OR MORE REGIONS, EACH 15 MINUTES 5 [facility] THERAPEUTIC PROCEDURE, 1 OR MORE AREAS, EACH 15 MINUTES; THERAPEUTIC EXERCISES TO DEVELOP STRENGTH AND ENDURANCE, RANGE OF MOTION AND FLEXIBILITY 5 [facility] CAST SUPPLIES, SHORT ARM SPLINT, ADULT (11 YEARS +), FIBERGLASS 5 [facility] CLOSED TREATMENT OF RADIAL HEAD OR NECK FRACTURE; WITHOUT MANIPULATION 5 [facility] SCREENING TEST OF VISUAL ACUITY, QUANTITATIVE, BILATERAL 5 [facility] CAST SUPPLIES, SHORT ARM CAST, ADULT (11 YEARS +), PLASTER 5 [facility] EDUCATIONAL SUPPLIES, SUCH BOOKS, TAPES, AND PAMPHLETS, FOR THE PATIENT'S EDUCATION AT COST TO PHYSICIAN OR OTHER QUALIFIED HEALTH LOAD TESTER 4 [facility] EDUCATIONAL SUPPLIES, SUCH BOOKS, TAPES, AND PAMPHLETS, FOR THE PATIENT'S EDUCATION AT COST TO PHYSICIAN OR OTHER QUALIFIED HEALTH LOAD TESTER 4 [facility] Physical Therapy Service Re-Evaluation Physical Therapy Service Re-Evaluation [id number] JODY ZAMORA [facility] Physical Therapy: ___ Se ion Segments, 15 Minutes Each Physical Therapy: ___ Session Segments, 15 Minutes Each [id number] DILEEP PHILLIPS [facility] Physical Therapy: ___ Se ion Segments, 15 Minutes Each Physical Therapy: ___ Session Segments, 15 Minutes Each [id number] 8 CARLA HAIRSTON [facility] Physical Therapy: ___ Se ion Segments, 15 Minutes Each Physical Therapy: ___ Session Segments, 15 Minutes Each [id number] 8 CARLA HAIRSTON [facility] Physical Therapy: ___ Se ion Segments, 15 Minutes Each Physical Therapy: ___ Session Segments, 15 Minutes Each [id number] 8 DILEEP PHILLIPS [facility] Physical Therapy: ___ Se ion Segments, 15 Minutes Each Physical Therapy: ___ Session Segments, 15 Minutes Each [id number] 8 JULIO GALLARDO [facility] Physical Therapy: ___ Se ion Segments, 15 Minutes Each Physical Therapy: ___ Session Segments, 15 Minutes Each 47060 8 DILEEP PHILLIPS [facility] Physical Therapy Service Evaluation Physical Therapy Service Evaluation [id number] 8 JODY ZAMORA [facility] Physical Therapy: ___ Se ion Segments, 15 Minutes Each Physical Therapy: ___ Session Segments, 15 Minutes Each [id number] 6 MIKE LARSON [facility] Modalities Cryotherapy Cold Packs Modalities Cryotherapy Cold Packs 14049 6 HER, [facility] Modalities Electrical Stimulation Unattended Modalities Electrical Stimulation Unattended [id number] 6 HERTZ, [facility] Physical Therapy: ___ Se ion Segments, 15 Minutes Each Physical Therapy: ___ Session Segments, 15 Minutes Each [id number] 6 HERTZ, [facility] Physical Therapy: ___ Se ion Segments, 15 Minutes Each Physical Therapy: ___ Session Segments, 15 Minutes Each [id number] [facility], [facility] Modalities Cryotherapy Cold Packs Modalities Cryotherapy Cold Packs 14768 6 SMEN, SABINE R with EStim to left ankle x 20 mins [facility] Modalities Electrical Stimulation Unattended Modalities Electrical Stimulation Unattended 32113 6 SMEN, SABINE R IES to left ankle x 20 mins [facility] Physical Therapy: ___ Se ion Segments, 15 Minutes Each Physical Therapy: ___ Session Segments, 15 Minutes Each 62232 6 SMEN, SABINE R New Ther Ex instructed x 30 mins per new flowsheet by therapist [facility] Modalities Cryotherapy Cold Packs Modalities Cryotherapy Cold Packs 33360 6 MIKE LARSON [facility] Modalities Electrical Stimulation Unattended Modalities Electrical Stimulation Unattended 08863 6 MIKE LARSON [facility] Physical Therapy: ___ Se ion Segments, 15 Minutes Each Physical Therapy: ___ Session Segments, 15 Minutes Each 27910 6 MIKE LARSON [facility] Physical Therapy Service Re-Evaluation Physical Therapy Service Re-Evaluation 90686 6 MIKE LARSON [facility] Modalities Cryotherapy Cold Packs Modalities Cryotherapy Cold Packs 25356 6 [facility] Modalities Electrical Stimulation Unattended Modalities Electrical Stimulation Unattended 56456 6 HERTZ, [facility] Physical Therapy: ___ Se ion Segments, 15 Minutes Each Physical Therapy: ___ Session Segments, 15 Minutes Each [id number] 6 [facility], [facility] DoD Physical Therapy: ___ Se ion Segments, 15 Minutes Each Physical Therapy: ___ Session Segments, 15 Minutes Each 55087 6 [facility], [facility] Do[facility] Modalities Electrical Stimulation Unattended Modalities Electrical Stimulation Unattended 59947 6 [facility], [facility] Modalities Cryotherapy Cold Packs Modalities Cryotherapy Cold Packs 32861 6 [facility]ERT[facility], [facility] DoD Modalities Cryotherapy Cold Packs Modalities Cryotherapy Cold Packs 47108 6 [facility]ERT[facility], [facility] Modalities Electrical Stimulation Unattended Modalities Electrical Stimulation Unattended 66608 6 [facility], [facility] DoD Physical Therapy: ___ Se ion Segments, 15 Minutes Each Physical Therapy: ___ Session Segments, 15 Minutes Each 68521 6 [facility], [facility] DoD Modalities Electrical Stimulation Unattended Modalities Electrical Stimulation Unattended 31669 6 [facility], [facility] DoD Modalities Cryotherapy Cold Packs Modalities Cryotherapy Cold Packs 44858 6 HERTZ, [facility] DoD Physical Therapy: ___ Se ion Segments, 15 Minutes Each Physical Therapy: ___ Session Segments, 15 Minutes Each [id number] 6 [facility], [facility] DoD Physical Therapy Service Evaluation Physical Therapy Service Evaluation 64603 6 MIKE LARSON Ankle control orthosis, stirrup style, rigid, includes any type interface (e.g., pneumatic, gel), prefabricated, [id number] 6 SABINE SPEARS Left Air Cast DoD Social History Combined list of available smoking, tobacco, and other social history from Department of Defense and Veterans Affairs facilities. Social History Type Response Date Comment Sour e This section is an empty social history section. DoD
--- OUTSIDE RECORDS SUMMARY | 2024-11-15 05:10 | XMS_ITS | Encounter Summary ---
Author Organization [facility] Address [address] [place] [address]. [place], [place] [address] [place] [address] Care Team Providers Care Religious Ritual Slaughterer Name Role Phone Pb Su MD Primary Care Provider [phone] Pb Su MD Primary Care Provider [phone] Encounter Details Date Type Department Care Team (Latest Contact Info) Description 05/24/2015 Abstract [facility] Medical Group Social History Tobacco Use Types [...] on filedocumented in this encounter Care Teams Religious Ritual Slaughterer Relationship Specialty Start Date End Date Pb Su MD [address] [place] [address] PCP - General 04/26/16 Pb Su MD [address] [place] [address] PCP - General 05/19/15 04/25/16 documented as of this encounter
--- OUTSIDE RECORDS SUMMARY | 2024-11-15 05:10 | XMS_ITS | Encounter Summary ---
Author Organization [facility] Address [address] [place] [address]. [place], [place] [address] [place] [address] Care Team Providers Care Air Plant Engineer Name Role Phone Pb Su MD Primary Care Provider [phone] Encounter Details Date Type Department Care Team (Latest Contact Info) Description 01/15/2017 Abstract [facility] Medical Group Social History Tobacco Use Types [...] on filedocumented in this encounter Care Teams Air Plant Engineer Relationship Specialty Start Date End Date Pb Su MD [address] [place] [address] PCP - General 04/26/16 documented as of this encounter
--- OUTSIDE RECORDS SUMMARY | 2024-11-15 05:10 | XMS_ITS | Encounter Summary ---
Author Organization [facility] Address [address] [place] [address]. [place], [place] [address] [place] [address] Care Team Providers Care Central Office Operator Supervisor Name Role Phone Pb Su MD [...] Team (Latest Contact Info) Description 09/30/2013 Abstract [facility] Pb Su MD [address] [place] [address] Social History Tobacco Use Types Packs/Day Years [...] HAND RT 3V Routine 09/30/2013 8:42 AM GAS LINE INSTALLER documented in this encounter Results * XR HAND RT 3V (09/30/2013 8:42 AM GAS LINE INSTALLER) Anatomical Region Laterality Modality Hand Radiographic Clary ging 09/30/2013 8:42 AM GAS LINE INSTALLER 09/30/2013 8:42 AM GAS LINE INSTALLER Narrative 09/30/2013 10:51 AM GAS LINE INSTALLER AVA CEDILLO JR MD: PB SU MD ?? ACCT: [id number] ?? : 1965 PT TYPE: REG CLI ?? SEX: M ORD SITE: [facility] OUTPT IMAGING ? STUDY DATE REPORT # PROCEDURE CODE PROCEDURE ?? 09/30/13 [id number] XR HAND MINIMUM 3 VIEW RT ? EXTORDERID ? [id number] ? ACCESSION NUMBER ?? [id number] ?CHART DOCUMENT ? IMPRESSION: ? NO ACUTE [...] HENDRICKSON M.D. ? D: ??09/30/2013 ??8:57 A ??#[id number] ?? T: ??09/30/2013 ??9:15 A/MA ? CC: ?PB SU M.D. ? Radiology image is available. Click on Image Link above. Procedure Note Vahe Chatterjee MD - 09/17/[address] [facility] MD: PB US MD ACCT: [id number] : 1965 PT TYPE: REG CLI SEX: M ORD SITE: [facility] OUTPT IMAGING STUDY DATE REPORT # PROCEDURE CODE PROCEDURE 09/30/13 [id number] XR HAND MINIMUM 3 VIEW RT EXTORDERID [id number] ACCESSION NUMBER [id number] CHART DOCUMENT IMPRESSION: NO ACUTE OSSEOUS ABNORMALITIES. [...] M.D. 09/30/2013 10:50 KEL HENDRICKSON M.D. A #[id number] A/MATILDE CC: PB SU M.D. Radiology image is available. Click on Image Link above. us Pb Su MD GENERAL IMAGING Final Resul t documented in this encounter Visit Diagnoses Not on filedocumented in this encounter Care Teams Central Office Operator Supervisor Relationship Specialty Start Date End Date Pb Su MD [address] [place] [address] PCP - General 04/26/16 Pb Su MD [address] [place] [address] PCP - General 05/19/15 04/25/16 Pb Su MD [address] [place] [address] PCP - General 12/07/14 05/18/15 Pb Su MD [address] [place] [address] PCP - General 12/05/14 12/06/14 Pb Su MD [address] [place] [address] PCP - General 03/23/14 12/04/14 Pb Su MD [address] [place], [place] [address] PCP - General 03/21/14 03/22/14 Pb Su MD [address] [place], [place] [address] PCP - General 03/16/14 03/20/14 Pb Su MD [address] [place], [place] [address]409 PCP - General 03/14/14 03/15/14 Pb Su MD [address] [place] [address] PCP - General 03/09/14 03/13/14 Pb Su MD [address] [place], [place] [address] PCP - General 03/02/14 03/08/14 Pb Su MD [address] [place] [address] PCP - General 02/28/14 03/01/14 Pb Su MD [address] [place], [place] [address] PCP - General 02/25/14 02/27/14 Pb Su MD [address] [place], [place] [address] PCP - General 02/23/14 02/24/14 Pb Su MD [address] [place] [address] PCP - General 02/17/14 02/22/14 Pb Su MD [address] [place] [address] PCP - General 11/02/13 02/16/14 Pb Su MD [address] [place], [place] [address] PCP - General 09/30/13 11/01/13 documented as of this encounter
--- OUTSIDE RECORDS SUMMARY | 2024-11-15 05:10 | XMS_ITS | Encounter Summary ---
Author Organization [facility] Address [address] [place] [address]. [place], [place] [address] [place] [address] Care Team Providers Care Fulling Mill Operator Name Role Phone Pb Su MD Primary Care Provider +1- [phone] Pb Su MD Primary Care Provider Pb Su MD Primary Care Provider Encounter Details Date Type Department Care Team (Latest Contact Info) Description 12/10/2014 Abstract [facility] Medical [facility] Social History Tobacco Use Types [...] 30-100 POTENTIAL INTOXICATION >100 TESTING PERFORMED AT [facility], A MEMBER OF THE [facility]. documented in this encounter Plan of Treatment Not on file documented as of this encounter Visit Diagnoses Not on filedocumented in this encounter Care Teams Fulling Mill Operator Relationship Specialty Start Date End Date Pb Su MD [address] [place], [place] [id number] PCP - General 04/26/16 Pb Su MD [address] [place], [place] [address] PCP - General 05/19/15 04/25/16 Pb Su MD [address] [place], [place] [address] PCP - General 12/07/14 05/18/15 documented as of this encounter
--- OUTSIDE RECORDS SUMMARY | 2024-11-15 05:10 | XMS_ITS | Encounter Summary ---
Author Organization [facility] Address [address] [place] [address]. [place], [place] [address] [place] [address] Care Team Providers Care Top Lift Nailer Name Role Phone Pb Su MD Primary Care Provider +1 [phone] Encounter Details Date Type Department Care Team (Latest Contact Info) Description 01/14/2018 Abstract [facility] Medical [facility] Social History Tobacco Use [...] on filedocumented in this encounter Care Teams Top Lift Nailer Relationship Specialty Start Date End Date Pb Su MD [address] [place] [address] PCP - General 04/26/16 documented as of this encounter
--- OUTSIDE RECORDS SUMMARY | 2024-11-15 05:10 | XMS_ITS | Encounter Summary ---
Author Organization [facility] Address [address] [place] [address]. [place] [address] [place] [address] Care Team Providers Care Hammer Heater Name Role Phone Pb Su MD Primary Care Provider +1- [phone] Pb Su MD Primary Care Provider [phone] Pb Su MD Primary Care Provider +1- [phone] Encounter Details Date Type Department Care Team (Latest Contact Info) Description 03/30/2015 Abstract [facility] Medical Group Social [...] on filedocumented in this encounter Care Teams Hammer Heater Relationship Specialty Start Date End Date Pb Su MD [address] [place], [place] [address] PCP - General 04/26/16 Pb Su MD [address] [place], [place] [address] PCP - General 05/19/15 04/25/16 Pb Su MD [address] [place] [address] PCP - General 12/07/14 05/18/15 documented as of this encounter
--- OUTSIDE RECORDS SUMMARY | 2024-11-15 05:10 | XMS_ITS | Encounter Summary ---
Author Organization [facility] Address [address] [place] [address]. [place] [address] [place] [address] Care Team Providers Care Teacher Of The Hearing Impaired Name Role Phone Pb Su MD Primary Care Provider +1- [phone] Pb Su MD Primary Care Provider Pb Su MD Primary Care Provider +1- [phone] Encounter Details Date Type Department Care Team (Latest Contact Info) Description 01/25/2015 Abstract [facility] Social History Tobacco Use [...] on filedocumented in this encounter Care Teams Teacher Of The Hearing Impaired Relationship Specialty Start Date End Date Pb Su MD [address] [place], [place] [address] PCP - General 04/26/16 Pb Su MD [address] [place], [place] [address] PCP - General 05/19/15 04/25/16 Pb Su MD [address] [place] [address] PCP - General 12/07/14 05/18/15 documented as of this encounter
--- OUTSIDE RECORDS SUMMARY | 2024-11-15 05:10 | XMS_ITS | Encounter Summary ---
Author Organization [facility] Address [address] [place] [address]. [place] [address] [place] [address] Care Team Providers Care Physician Assistant Certified Name Role Phone Pb Su MD Primary Care Provider [phone] Encounter Details Date Type Department Care Team (Latest Contact Info) Description 05/23/2016 Abstract [facility] Medical [facility] Social History Tobacco [...] Tiffanie Murillo R.N.; May 23 2016 1:21PM NIGHT AUDITOR (Author) documented in this encounter Plan of Treatment Not on file documented as of this encounter Visit Diagnoses Not on filedocumented in this encounter Care Teams Physician Assistant Certified Relationship Specialty Start Date End Date Pb Su MD [address] [place] [address] PCP - General 04/26/16 documented as of this encounter
--- OUTSIDE RECORDS SUMMARY | 2024-11-15 05:10 | XMS_ITS | Encounter Summary ---
Author Organization [facility] Address [address] [place] [address]. [place], [place] [address] [place] [address] Care Team Providers Care Supervisor Backfilling Name Role Phone Pb Su MD Primary [...] (Late st Contact Info) Description 01/28/2014 Abstract [facility] Medical [facility] Family Medicine - Aram [address] [place] [address] Pb Su MD [address] [place] [address] Social History Tobacco Use Types Packs/Day Years Used Date Smoking Tobacco: Never Assessed Sex and Gender Information Value Date Recorded Sex Assigned at Not on file Legal Sex Male 7:22 PM CDT Gender Identity Not on file Sexual Orientation Not on file documented as of this encounter Last Filed Vital Signs Vital Sign Reading Time Taken Comments Blood Pressure 108/70 01/28/2014 7:19 AM HARD ROCK DRILL OPERATOR Pulse 64 01/28/2014 7:19 AM HARD ROCK DRILL OPERATOR Temperature - - Respiratory Rate - - Oxygen Saturation - - Inhaled Oxygen Concentration - - Weight 100.2 kg (221 lb) 01/28/2014 7:19 AM HARD ROCK DRILL OPERATOR Height 182.9 cm (6') 01/28/2014 7:19 AM HARD ROCK DRILL OPERATOR Body Mass Index 29.97 01/28/2014 7:19 AM HARD ROCK DRILL OPERATOR documented in this encounter Progress Notes [...] 1 TABLET BY MOUTH AT BEDTIME; Therapy: [id number] to (Evaluate:24Jun2014); Last Rx:[id number] Ordered 2. Claritin 10 MG Oral Tablet; Therapy: (Recorded:62Iyn0820) to Recorded 3. Cyclobenzaprine HCl - 10 MG Oral Tablet; TAKE 1 TABLET 3 TIMES DAILY NEEDED; Therapy: 84Fbm9318 to (Evaluate:26Feb2014) Requested for: 59Zwv2439; Last Rx:[id number] Ordered 4. TraMADol HCl - 50 MG Oral Tablet; TAKE 1 TABLET 3 TIMES DAILY; Therapy: 76Vgt5439 to (Evaluate:06Feb2014); Last Rx:[id number] Ordered Allergies 1. Acetaminophen-Codeine #3 TABS Vitals [...] previous pain/parathesias originating from cervical spin! Request [facility] Authorization for Physical therapy Services eval/treatment [facility] site! Status: Need Information - Financial Authorization Requested for: 28Jan2014 Ordered; For: Arm numbness left, Left arm pain; Ordered By: Pb Su Performed: Order Comments: 48 yo male with left arm pain/parathesias: -history of cervical neck disc disease and previous pain/parathesias originating from cervical spin! Request [facility] Authorization for Physical therapy Services eval/treatment [facility] site! Due: 11Feb2014; Last Updated By: [...] Pb Su M.D.; Jan 29 2014 7:55PM HARD ROCK DRILL OPERATOR (Author) documented in this encounter Plan of Treatment Not on file documented as of this encounter Visit Diagnoses Not on filedocumented in this encounter Care Teams Supervisor Backfilling Relationship Specialty Start Date End Date Pb Su MD [address] [place], [place] [address] PCP - General 04/26/16 Pb Su MD [address] [place], [place] [address] PCP - General 05/19/15 04/25/16 Pb Su MD [address] [place] [address] PCP - General 12/07/14 05/18/15 Pb Su MD [address] [place], [place] [address]689 PCP - General 12/05/14 12/06/14 Pb Su MD [address] [place], [place] [address] PCP - General 03/23/14 12/04/14 Pb Su MD [address] [place], [place] [address] PCP - General 03/21/14 03/22/14 Pb Su MD [address] [place], [place] [address] PCP - General 03/16/14 03/20/14 Pb Su MD [address] [place], [place] [address] PCP - General 03/14/14 03/15/14 Pb Su MD [address] [place], [place] [address] PCP - General 03/09/14 03/13/14 Pb Su MD [address] [place] [address] PCP - General 03/02/14 03/08/14 Pb Su MD [address] [place] [address] PCP - General 02/28/14 03/01/14 Pb Su MD [address] [place] [address] PCP - General 02/25/14 02/27/14 Pb Su MD [address] [place] [address] PCP - General 02/23/14 02/24/14 Pb Su MD [address] [place], [place] [address] PCP - General 02/17/14 02/22/14 Pb Su MD [address] [place] [address] PCP - General 11/02/13 02/16/14 documented as of this encounter
--- OUTSIDE RECORDS SUMMARY | 2024-11-15 05:10 | XMS_ITS | Encounter Summary ---
Author Organization [facility] Address [address] [place] [address]. [place], [place] [address] [place] [address] Care Team Providers Care Fire Production Operator Name Role Phone Pb Su MD Primary Care Provider [phone] Encounter Details Date Type Department Care Team (Latest Contact Info) Description 12/25/2016 Abstract [facility] [...] on filedocumented in this encounter Care Teams Fire Production Operator Relationship Specialty Start Date End Date Pb Su MD [address] [place] [address] PCP - General 04/26/16 documented as of this encounter
--- OUTSIDE RECORDS SUMMARY | 2024-11-15 05:10 | XMS_ITS | Encounter Summary ---
Author Organization [facility] Address [address] [place] [address]. [place], [place] [address] [place] [address] Care Team Providers Care Drywall Installer Name Role Phone Pb Su MD Primary Care Provider +1- [phone] Pb Su MD Primary Care Provider Pb Su MD Primary Care Provider +1- [phone] Encounter Details Date Type Department Care Team (Latest Contact Info) Description 12/18/2014 Abstract [facility] Medical Group Social History Tobacco [...] more information on this test, go to http://education.SmartDocs (Teknowmics).Mibuzz.tv/faq/ TotalTestosteroneLCMSMS TESTOSTERONE,FREE 71.5 Reference range: 35.0 to 155.0 Unit: pg/mL Test Performed by [facility], [address] [place] [address] Pb Garcia M.D., Ph.D., Director of Laboratories , CLIA [id number] documented in this encounter Plan of Treatment Not on file documented as of this encounter Visit Diagnoses Not on filedocumented in this encounter Care Teams Drywall Installer Relationship Specialty Start Date End Date Pb Su MD [address] [place], [place] [address] PCP - General 04/26/16 Pb Su MD [address] [place], [place] [address] PCP - General 05/19/15 04/25/16 Pb Su MD [address] [place], [place] [address] PCP - General 12/07/14 05/18/15 documented as of this encounter
--- OUTSIDE RECORDS SUMMARY | 2024-11-15 05:10 | XMS_ITS | Encounter Summary ---
Author Organization [facility] Address [address] [place] [address]. [place] [address] [place] [address] Care Team Providers Care Sanitarian Inspector Name Role Phone Pb Su MD Primary Care Provider +1- [phone] Pb Su MD Primary Care Provider Pb Su MD Primary Care Provider +1- [phone] Encounter Details Date Type Department Care Team (Latest Contact Info) Description 01/09/2015 Abstract [facility] Medical [...] on filedocumented in this encounter Care Teams Sanitarian Inspector Relationship Specialty Start Date End Date Pb Su MD [address] [place], [place] [address] PCP - General 04/26/16 Pb Su MD [address] [place], [place] [address] PCP - General 05/19/15 04/25/16 Pb Su MD [address] [place] [address] PCP - General 12/07/14 05/18/15 documented as of this encounter
--- OUTSIDE RECORDS SUMMARY | 2024-11-15 05:10 | XMS_ITS | Encounter Summary ---
Author Organization [facility] Address [address] [place] [address]. [place], [place] [address] [place] [address] Care Team Providers Care Rn Ante Partum Name Role Phone Pb Su MD Primary Care Provider +1 [phone] Encounter Details Date Type Department Care Team (Latest Contact Info) Description 04/28/2016 Abstract [facility] Medical Group Social History Tobacco Use [...] on filedocumented in this encounter Care Teams Rn Ante Partum Relationship Specialty Start Date End Date Pb Su MD [address] [place] [address] PCP - General 04/26/16 documented as of this encounter
--- OUTSIDE RECORDS SUMMARY | 2024-11-15 05:10 | XMS_ITS | Encounter Summary ---
Author Organization [facility] Address [address] [place] [address]. [place], [place] [address] [place] [address] Care Team Providers Care Hearing Therapy Teacher Name Role Phone Pb Su MD Primary Care Provider [phone] Encounter Details Date Type Department Care Team (Latest Contact Info) Description 09/29/2018 Scan [facility] Medical [facility] , Vahe [place], Social History [...] on filedocumented in this encounter Care Teams Hearing Therapy Teacher Relationship Specialty Start Date End Date Pb Su MD [address] [place] [address] PCP - General 04/26/16 documented as of this encounter
--- OUTSIDE RECORDS SUMMARY | 2024-11-15 05:10 | XMS_ITS | Encounter Summary ---
Author Organization [facility] Address [address] [place] [address]. [place] [address] [place] [address] Care Team Providers Care Compensation Business Partner Name Role Phone Pb Su MD Primary Care Provider Pb Su MD Primary Care Provider [phone] Pb Su MD Primary Care Provider Pb Su MD Primary Care Provider [phone] Encounter Details Date Type Department Care Team (Late st Contact Info) Description 12/05/2014 Abstract [facility] [address] [place] [address] Pb Su MD [address] [place], [place] [address] Social History Tobacco Use Types Packs/Day Years [...] chronic documented in this encounter Care Teams Compensation Business Partner Relationship Specialty Start Date End Date Pb Su MD [address] [place], [place] [address] PCP - General 04/26/16 Pb Su MD [address] [place] [address] PCP - General 05/19/15 04/25/16 Pb Su MD [address] [place] [address] PCP - General 12/07/14 05/18/15 Pb Su MD [address] [place], [place] [address] PCP - General 12/05/14 12/06/14 documented as of this encounter
--- OUTSIDE RECORDS SUMMARY | 2024-11-15 05:10 | XMS_ITS | Encounter Summary ---
Author Organization [facility] Address [address] [place] [address]. [place] [address] [place] [address] Care Team Providers Care Senior Mechanical Project Manager Name Role Phone Pb Su MD Primary Care Provider Pb Su MD Primary Care Provider Pb Su MD Primary Care Provider Pb Su MD Primary Care Provider Pb Su MD Primary Care Provider Encounter Details Date Type Department Care Team (Late st Contact Info) Description 2014 [facility] [address] [place] [address] Pb Su MD [address] [place] [address] Social History Tobacco Use Types [...] therapy documented in this encounter Care Teams Senior Mechanical Project Manager Relationship Specialty Start Date End Date Pb Su MD [address] [place] [address] PCP - General 04/26/16 Pb Su MD [address] [place] [address] PCP - General 05/19/15 04/25/16 Pb Su MD [address] [place] [address] PCP - General 12/07/14 05/18/15 Pb Su MD [address] [place] [address] PCP - General 12/05/14 12/06/14 Pb Su MD [address] [place], [place] [address] PCP - General 03/23/14 12/04/14 documented as of this encounter
--- OUTSIDE RECORDS SUMMARY | 2024-11-15 05:10 | XMS_ITS | Encounter Summary ---
Author Organization [facility] Address [address] [place] [address]. [place], [place] [address] [place] [address] Care Team Providers Care Corporate Job Titles Name Role Phone Pb Su MD Primary Care Provider [phone] Pb Su MD Primary Care Provider Pb Su MD Primary Care Provider Pb Su MD Primary Care Provider Pb Su MD Primary Care Provider Encounter Details Date Type Department Care Team (Latest Contact Info) Description 03/24/2014 Abstract [facility] Medical Group Social History Tobacco [...] on filedocumented in this encounter Care Teams Corporate Job Titles Relationship Specialty Start Date End Date Pb Su MD [address] [place], [place] [address] PCP - General 04/26/16 Pb Su MD [address] [place] [address] PCP - General 05/19/15 04/25/16 Pb Su MD [address] [place], [place] [id number] PCP - General 12/07/14 05/18/15 Pb Su MD [address] [place], [place] [id number] PCP - General 12/05/14 12/06/14 Pb Su MD [address] [place], [place] [address] PCP - General 03/23/14 12/04/14 documented as of this encounter
--- OUTSIDE RECORDS SUMMARY | 2024-11-15 05:10 | XMS_ITS | Encounter Summary ---
Author Organization [facility] Address [address] [place] [address]. [place], [place] [address] [place] [address] Care Team Providers Care Oracle Consultant Name Role Phone Pb Su MD [...] Team (Latest Contact Info) Description 10/04/2013 Abstract [facility] Medical Group Social History [...] on filedocumented in this encounter Care Teams Oracle Consultant Relationship Specialty Start Date End Date Pb Su MD [address] [place], [place] [address] PCP - General 04/26/16 Pb Su MD [address] [place] [address] PCP - General 05/19/15 04/25/16 Pb Su MD [address] [place] [address] PCP - General 12/07/14 05/18/15 Pb Su MD [address] [place] [address] PCP - General 12/05/14 12/06/14 Pb Su MD [address] [place], [place] [address] PCP - General 03/23/14 12/04/14 Pb Su MD [address] [place] [address] PCP - General 03/21/14 03/22/14 Pb Su MD [address] [place] [address] PCP - General 03/16/14 03/20/14 Pb Su MD [address] [place], [place] [address] PCP - General 03/14/14 03/15/14 Pb Su MD [address] [place] [address] PCP - General 03/09/14 03/13/14 Pb Su MD [address] [place], [place] [address] PCP - General 03/02/14 03/08/14 Pb Su MD [address] [place] [address] PCP - General 02/28/14 03/01/14 Pb Su MD [address] [place] [address] PCP - General 02/25/14 02/27/14 Pb Su MD [address] [place] [address] PCP - General 02/23/14 02/24/14 Pb Su MD [address] [place] [address] PCP - General 02/17/14 02/22/14 Pb Su MD [address] [place] [address] PCP - General 11/02/13 02/16/14 Pb Su MD [address] [place] [address] PCP - General 09/30/13 11/01/13 documented as of this encounter
--- OUTSIDE RECORDS SUMMARY | 2024-11-15 05:10 | XMS_ITS | Encounter Summary ---
Author Organization [facility] Address [address] [place] [address]. [place] [address] [place] [address] Care Team Providers Care Fire Extinguisher Sprinkler Inspector Name Role Phone Pb Su MD Primary Care Provider +1- [phone] Pb Su MD Primary Care Provider Pb Su MD Primary Care Provider +1- [phone] Encounter Details Date Type Department Care Team (Latest Contact Info) Description 01/24/2015 Abstract [facility] Medical Group Social [...] filedocumented in this encounter Care Teams Fire Extinguisher Sprinkler Inspector Relationship Specialty Start Date End Date Pb Su MD [address] [place], [place] [id number] PCP - General 04/26/16 Pb Su MD [address] [place], [place] [id number] PCP - General 05/19/15 04/25/16 Pb Su MD [address] [place] [address] PCP - General 12/07/14 05/18/15 documented as of this encounter
--- OUTSIDE RECORDS SUMMARY | 2024-11-15 05:10 | XMS_ITS | Encounter Summary ---
Author Organization [facility] Address [address] [place] [address]. [place] [address] [place] [address] Care Team Providers Care User Experience Team Lead Name Role Phone Pb Su MD Primary Care Provider +1- [phone] Pb Su MD Primary Care Provider Pb Su MD Primary Care Provider +1- [phone] Encounter Details Date Type Department Care Team (Latest Contact Info) Description 03/28/2015 Abstract [facility] Medical Group Social [...] on filedocumented in this encounter Care Teams User Experience Team Lead Relationship Specialty Start Date End Date Pb Su MD [address] [place], [place] [id number] PCP - General 04/26/16 Pb Su MD [address] [place] [id number] PCP - General 05/19/15 04/25/16 Pb Su MD [address] [place] [address] PCP - General 12/07/14 05/18/15 documented as of this encounter
--- OUTSIDE RECORDS SUMMARY | 2024-11-15 05:10 | XMS_ITS | Encounter Summary ---
Author Organization [facility] Address [address] [place] [address]. [place], [place] [address] [place] [address] Care Team Providers Care Produce Production Team Member Name Role Phone Pb Su MD Primary Care Provider [phone] Pb Su MD Primary Care Provider +1- [phone] Encounter Details Date Type Department Care Team (Latest Contact Info) Description 05/19/2015 Abstract [facility] Medical Group Social [...] on filedocumented in this encounter Care Teams Produce Production Team Member Relationship Specialty Start Date End Date Pb Su MD [address] [place] [address] PCP - General 04/26/16 Pb Su MD [address] [place] [address] PCP - General 05/19/15 04/25/16 documented as of this encounter
--- OUTSIDE RECORDS SUMMARY | 2024-11-15 05:10 | XMS_ITS | Encounter Summary ---
Author Organization [facility] Address [address] [place] [address]. [place] [address] [place] [address] Care Team Providers Care Ortho Tech Name Role Phone Pb Su MD Primary Care Provider +1- [phone] Pb Su MD Primary Care Provider +1- [phone] Pb Su MD Primary Care Provider +1- [phone] Encounter Details Date Type Department Care Team (Latest Contact Info) Description 04/10/2015 Abstract [facility] Medical Group Social [...] on filedocumented in this encounter Care Teams Ortho Tech Relationship Specialty Start Date End Date Pb Su MD [address] [place], [place] [id number] PCP - General 04/26/16 Pb Su MD [address] [place], [place] [address] PCP - General 05/19/15 04/25/16 Pb Su MD [address] [place] [address] PCP - General 12/07/14 05/18/15 documented as of this encounter
--- OUTSIDE RECORDS SUMMARY | 2024-11-15 05:10 | XMS_ITS | Encounter Summary ---
Author Organization [facility] Address [address] [place] [address]. [place], [place] [address] [place] [address] Care Team Providers Care Butcher All Round Name Role Phone Pb Su MD Primary [...] Team (Latest Contact Info) Description 07/08/2013 Abstract [facility] Medical Group Social History Tobacco Use [...] on filedocumented in this encounter Care Teams Butcher All Round Relationship Specialty Start Date End Date Pb Su MD [address] [place], [place] [address] PCP - General 04/26/16 Pb Su MD [address] [place] [address] PCP - General 05/19/15 04/25/16 Pb Su MD [address] [place], [place] [address] PCP - General 12/07/14 05/18/15 Pb Su MD [address] [place] [address] PCP - General 12/05/14 12/06/14 Pb Su MD [address] [place], [place] [address] PCP - General 03/23/14 12/04/14 Pb Su MD [address] [place] [address] PCP - General 03/21/14 03/22/14 Pb Su MD [address] [place] [address] PCP - General 03/16/14 03/20/14 Pb Su MD [address] [place] [address] PCP - General 03/14/14 03/15/14 Pb Su MD [address] [place], [place] [address] PCP - General 03/09/14 03/13/14 Pb Su MD [address] [place] [address] PCP - General 03/02/14 03/08/14 Pb Su MD [address] [place] [address] PCP - General 02/28/14 03/01/14 Pb Su MD [address] [place] [address] PCP - General 02/25/14 02/27/14 Pb Su MD [address] [place] [address] PCP - General 02/23/14 02/24/14 Pb Su MD [address] [place] [address] PCP - General 02/17/14 02/22/14 Pb Su MD [address] [place] [address] PCP - General 11/02/13 02/16/14 Pb Su MD [address] [place] [address] PCP - General 09/30/13 11/01/13 Pb Su MD [address] [place], [place] [address] PCP - General 06/10/13 09/29/13 documented as of this encounter
--- OUTSIDE RECORDS SUMMARY | 2024-11-15 05:10 | XMS_ITS | Encounter Summary ---
Author Organization [facility] Address [address] [place] [address]. [place], [place] [address] [place] [address] Care Team Providers Care Die Engraver Name Role Phone Pb Su MD Primary [...] (Late st Contact Info) Description 09/30/2013 Abstract [facility] [address] [place], [place] [address] Pb Su MD [address] [place], [place] [id number] Social History Tobacco Use Types Packs/Day Years [...] site documented in this encounter Care Teams Die Engraver Relationship Specialty Start Date End Date Pb Su MD [address] [place], [place] [address] PCP - General 04/26/16 Pb Su MD [address] [place], [place] [address] PCP - General 05/19/15 04/25/16 Pb Su MD [address] [place], [place] [address] PCP - General 12/07/14 05/18/15 Pb Su MD [address] [place], [place] [address] PCP - General 12/05/14 12/06/14 Pb Su MD [address] [place] [address] PCP - General 03/23/14 12/04/14 Pb Su MD [address] [place] [address] PCP - General 03/21/14 03/22/14 Pb Su MD [address] [place] [address] PCP - General 03/16/14 03/20/14 Pb Su MD [address] [place] [address] PCP - General 03/14/14 03/15/14 Pb Su MD [address] [place] [address] PCP - General 03/09/14 03/13/14 Pb Su MD [address] [place] [address] PCP - General 03/02/14 03/08/14 Pb Su MD [address] [place] [address] PCP - General 02/28/14 03/01/14 Pb Su MD [address] [place] [address] PCP - General 02/25/14 02/27/14 Pb Su MD [address] [place], [place] [address] PCP - General 02/23/14 02/24/14 Pb Su MD [address] [place] [address] PCP - General 02/17/14 02/22/14 Pb Su MD [address] [place], [place] [address] PCP - General 11/02/13 02/16/14 Pb Su MD [address] [place], [place] [address] PCP - General 09/30/13 11/01/13 documented as of this encounter
--- OUTSIDE RECORDS SUMMARY | 2024-11-15 05:10 | XMS_ITS | Encounter Summary ---
Author Organization [facility] Address [address] [place] [address]. [place] [address] [place] [address] Care Team Providers Care Electrical Sign Wirer Helper Name Role Phone Pb Su MD Primary Care Provider [phone] Pb Su MD Primary Care Provider +1- [phone] Encounter Details Date Type Department Care Team (Late st Contact Info) Description 05/19/2015 Abstract [facility] [address] [place], [place] [id number] Pb Su MD [address] [place], [place] [address] Social History Tobacco Use Types Packs/Day Years [...] Cough documented in this encounter Care Teams Electrical Sign Wirer Helper Relationship Specialty Start Date End Date Pb Su MD [address] [place], [place] [address] PCP - General 04/26/16 Pb Su MD [address] [place], [place] [address] PCP - General 05/19/15 04/25/16 documented as of this encounter
--- OUTSIDE RECORDS SUMMARY | 2024-11-15 05:10 | XMS_ITS | Encounter Summary ---
Author Organization [facility] Address [address] [place] [address]. [place], [place] [address] [place] [address] Care Team Providers Care Assistant Account Executive Name Role Phone Pb Su MD Primary Care Provider [phone] Encounter Details Date Type Department Care Team (Latest Contact Info) Description 05/28/2016 Abstract [facility] Medical Group [...] Metabolic Prof ( CMP ); Status:Active; Requested for:[id number]; ?? Creatine Kinase ( CK ) ( CPK ); Status:Active; Requested for:22Ocn7626; ?? Lipid Profile; Status:Active; Requested for:[id number]; Signatures Electronically signed by : Tiffanie Murillo R.N.; May 28 2016 9:22AM UROLOGY SURGEON (Author) documented in this encounter Plan of Treatment Not on file documented as of this encounter Visit Diagnoses Not on filedocumented in this encounter Care Teams Assistant Account Executive Relationship Specialty Start Date End Date Pb Su MD [address] '[place] [address] PCP - General 04/26/16 documented as of this encounter
--- OUTSIDE RECORDS SUMMARY | 2024-11-15 05:10 | XMS_ITS | Encounter Summary ---
Author Organization [facility] Address [address] [place] [address]. [place] [address] [place] [address] Care Team Providers Care Lining Sewer Name Role Phone Pb Su MD Primary Care Provider +1- [phone] Pb Su MD Primary Care Provider Pb Su MD Primary Care Provider [phone] Encounter Details Date Type Department Care Team (Late st Contact Info) Description 03/20/2015 Abstract [facility] Medical [facility] Family Medicine - [place] [address] [place] [id number] Pb Su MD [address] [place] [address] Social History Tobacco Use Types Packs/Day Years [...] are noted. Current treatment includes Increasing fluid, xgcl-zga-koudegi cough and cold remedies. By report, there [...] 2. Claritin 10 MG Oral Tablet; Therapy: (Recorded:93Juu0877) to Recorded 3. PredniSONE 20 MG Oral [...] Cough; Ordered By: Pb Su Performed: Due: 40Jsp6965; Last Updated By: Vanessa Gray; 03/20/2015 12:45:04 PM Obstructive sleep apnea 2. Benzonatate 200 MG Oral Capsule; TAKE 1 CAPSULE 3 TIMES DAILY NEEDED Rx By: Pb Su; Dispense: 7 Days ; #:21 Capsule; Refill: 1; For: Obstructive sleep apnea; GAYLE = N; Verified Transmission to [facility]; Last Updated By: Marci Barber; 03/20/2015 7:13:25 AM 3. Avoid alcoholic beverages.; Status:Active; Requested for:60Lcs9901; Ordered; For:Obstructive sleep apnea; Ordered By:Pb Su; 4. Avoid exposure to cigarette smoke.; Status:Active; Requested for:85Wax6762; Ordered; For:Obstructive sleep apnea; Ordered By:Pb Su; 5. Avoid medications and/or triggers that caused your symptoms/problems.; Status:Active; Requested for:72Fol4729; Ordered; For:Obstructive sleep apnea; Ordered By:Pb Su; 6. Avoid sleeping on your back.; Status:Active; Requested for:52Tpe4451; Ordered; For:Obstructive sleep apnea; Ordered By:Pb Su; 7. Begin or continue regular aerobic exercise. Gradually work up to at least 3 sessions of 30 minutes of exercise a week.; Status:Active; Requested for:64Why6514; Ordered; For:Obstructive sleep apnea; Ordered By:Pb Su; 8. Continue with our present treatment plan.; Status:Active; Requested for:48Zdz2338; Ordered; For:Obstructive sleep apnea; Ordered By:Pb Su; 9. Please bring all medicines, vitamins, and herbal supplements with you when you come to the office.; Status:Active; Requested for:43Twz1993; Ordered; For:Obstructive sleep apnea; Ordered By:Pb Su; 10. Some eating tips that can help you lose weight.; Status:Active; Requested for:60Bsk6204; Ordered; For:Obstructive sleep apnea; Ordered By:Pb Su; 11. Some eating tips that can help you lose weight.; Status:Active; Requested for:17Qod6897; Ordered; For:Obstructive sleep apnea; Ordered By:Pb Su; [...] we can help. You may also call 8-739-HVUZ-NOW for free resources and assistance.; Status:Active; Requested for:20Mar2015; Ordered; For:Obstructive sleep apnea; Ordered By:Pb Su; 17. Call if: The symptoms are not better in 7 days.; Status:Active; Requested for:20Mar2015; Ordered; For:Obstructive sleep apnea; Ordered By:Pb Su; 18. Call if: The symptoms come back after a period of time of being normal.; Status:Active; Requested for:90Hoy9888; Ordered; For:Obstructive sleep apnea; Ordered By:Pb Su; 19. Call if: You feel unusually tired.; Status:Active; Requested for:33Cjr2030; Ordered; For:Obstructive sleep apnea; Ordered By:Pb Su; 20. Call if: You feel your heart is beating too fast.; Status:Active; Requested for:38Axe0680; Ordered; For:Obstructive sleep apnea; Ordered By:Pb Su; 21. Call if: You get a headache that does not go away with your usual treatment.; Status:Active; Requested for:90Hvm0440; Ordered; For:Obstructive sleep apnea; Ordered By:Pb Su; 22. Call if: You have a dry, hacking cough.; Status:Active; Requested for:36Ptc7219; Ordered; For:Obstructive sleep apnea; Ordered By:Pb Su; 23. Call if: You have feelings of extreme sadness and feelings of hopelessness.; Status:Active; Requested for:62Dvd9304; Ordered; For:Obstructive sleep apnea; Ordered By:Pb Su; 24. Call if: You have frequent headaches.; Status:Active; Requested for:35Qbp7205; Ordered; For:Obstructive sleep apnea; Ordered By:Pb Su; 25. Call if: You have swelling and puffiness of your lower leg or ankles.; Status:Active; Requested for:41Xzz6966; Ordered; For:Obstructive sleep apnea; Ordered By:Pb Su; 26. Call if: Your nose is stuffy or feels plugged.; Status:Active; Requested for:29Ine4721; Ordered; For:Obstructive sleep apnea; Ordered By:Pb Su; 27. Call 911 if: You are considering suicide.; Status:Active; Requested for:75Zja3110; Ordered; For:Obstructive sleep apnea; Ordered By:Pb Su; 28. Call 911 if: You experience a new kind of chest pain (angina) or pressure.; Status:Active; Requested for:98Xqk4939; Ordered; For:Obstructive sleep apnea; Ordered By:Pb Su; 29. Seek Immediate Medical Attention if: You are thinking about harming yourself or someone else.; Status:Active; Requested for:92Vza8519; Ordered; For:Obstructive sleep apnea; Ordered By:Pb Su; 30. Seek Immediate Medical Attention if: You faint or lose consciousness.; Status:Active; Requested for:52Jgu4083; Ordered; For:Obstructive sleep apnea; Ordered By:Pb Su; 31. Seek Immediate Medical Attention if: You feel short of breath even while resting.; Status:Active; Requested for:81Fcw9409; Ordered; For:Obstructive sleep apnea; Ordered By:Pb Su; 32. Seek Immediate Medical Attention if: Your child tells you about thoughts of harming themselves or someone else.; Status:Active; Requested for:06Atu7324; Ordered; For:Obstructive sleep apnea; Ordered By:Pb Su; 33. Seek Immediate Medical Attention if: Your depression is worse.; Status:Active; Requested for:84Jgp7385; Ordered; For:Obstructive sleep apnea; Ordered By:Pb Su; 34. Seek Immediate Medical Attention if: Your shortness of breath is getting worse.; Status:Active; Requested for:82Cmn3007; Ordered; For:Obstructive sleep apnea; Ordered By:Pb Su; [...] Pb Su M.D.; Mar 20 2015 8:46PM SANITARY CHEMIST (Author) documented in this encounter Plan of Treatment Not on file documented as of this encounter Visit Diagnoses Not on filedocumented in this encounter Care Teams Lining Sewer Relationship Specialty Start Date End Date Pb Su MD [address] [place] [address] PCP - General 04/26/16 Pb Su MD [address] [place], [place] [address] PCP - General 05/19/15 04/25/16 Pb Su MD [address] [place], [place] [address] PCP - General 12/07/14 05/18/15 documented as of this encounter
--- OUTSIDE RECORDS SUMMARY | 2024-11-15 05:10 | XMS_ITS | Encounter Summary ---
Author Organization [facility] Address [address] [place] [address]. [place] [address] [place] [address] Care Team Providers Care Ug Designer Name Role Phone Pb Su MD Primary Care Provider [phone] Encounter Details Date Type Department Care Team (Latest Contact Info) Description 01/19/2018 Abstract [facility] Medical Group Sonja Joiner MD [address] [place] [phone] Social History Tobacco Use Types Packs/Day Years [...] on filedocumented in this encounter Care Teams Ug Designer Relationship Specialty Start Date End Date Pb Su MD [address] [facility] [place] [address] PCP - General 04/26/16 documented as of this encounter
--- OUTSIDE RECORDS SUMMARY | 2024-11-15 05:10 | XMS_ITS | Encounter Summary ---
Author Organization [facility] Address [address] [place] [address]. [place], [place] [address] [place] [address] Care Team Providers Care Checker Loader Name Role Phone Pb Su MD [...] Team (Latest Contact Info) Description 01/21/[address] [facility] Medical Group Social History Tobacco Use Types [...] on filedocumented in this encounter Care Teams Checker Loader Relationship Specialty Start Date End Date Pb Su MD [address] [place], [place] [address] PCP - General 04/26/16 Pb Su MD [address] [place], [place] [address] PCP - General 05/19/15 04/25/16 Pb Su MD [address] [place], [place] [address] PCP - General 12/07/14 05/18/15 Pb Su MD [address] [place] [address] PCP - General 12/05/14 12/06/14 Pb Su MD [address] [place] [address] PCP - General 03/23/14 12/04/14 Pb Su MD [address] [place], [place] [address] PCP - General 03/21/14 03/22/14 Pb Su MD [address] [place] [address] PCP - General 03/16/14 03/20/14 Pb Su MD [address] [place] [address] PCP - General 03/14/14 03/15/14 Pb Su MD [address] [place] [address] PCP - General 03/09/14 03/13/14 Pb Su MD [address] [place] [address] PCP - General 03/02/14 03/08/14 Pb Su MD [address] [place], [place] [address] PCP - General 02/28/14 03/01/14 Pb Su MD [address] [place], [place] [address] PCP - General 02/25/14 02/27/14 Pb Su MD [address] [place], [place] [address] PCP - General 02/23/14 02/24/14 Pb Su MD [address] [place], [place] [address] PCP - General 02/17/14 02/22/14 Pb Su MD [address] [place], [place] [address] PCP - General 11/02/13 02/16/14 documented as of this encounter
--- OUTSIDE RECORDS SUMMARY | 2024-11-15 05:10 | XMS_ITS | Encounter Summary ---
Author Organization [facility] Address [address] [place] [address]. [place], [place] [address] [place] [address] Care Team Providers Care Manager Culinary Name Role Phone Pb Su MD Primary Care Provider Pb Su MD Primary Care Provider [phone] Pb Su MD Primary Care Provider [phone] Pb Su MD Primary Care Provider Pb Su MD Primary Care Provider [phone] Encounter Details Date Type Department Care Team (Late st Contact Info) Description 05/05/2014 Abstract [facility] Medical Group Multispecialty Care - [address], [address] [place] [address] Fernie Erickson MD Social History Tobacco Use [...] CDT Chief Complaint DR. 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 He is being referred [...] 1 TABLET BY MOUTH AT BEDTIME; Therapy: 17Wvs5701 to (Evaluate:24Jun2014); Last Rx:[id number] Ordered 2. Claritin 10 MG Oral Tablet; Therapy: (Recorded:14Rso8114) to Recorded 3. Cyclobenzaprine HCl - 10 MG Oral Tablet; TAKE 1 TABLET 3 TIMES DAILY NEEDED; Therapy: 84Ydu1564 to (Evaluate:26Feb2014) Requested for: 74Lvf6370; Last Rx:[id number] Ordered 4. TraMADol HCl - 50 MG Oral Tablet; TAKE 1 TABLET 3 TIMES DAILY; Therapy: 98Wwj6053 to (Evaluate:06Feb2014); Last Rx:[id number] Ordered Allergies 1. Acetaminophen-Codeine #3 TABS Vitals Recorded by : Abena Leal at 05May2014 03:33PM Heart Rate 80 Systolic 140 Diastolic 80 Height 6 ft Weight 215 lb BMI Calculated 29.16 BSA Calculated 2.2 Physical Exam Neurologic examination Higher order function alert and oriented x3, [place] Coma Scale 15, speech fluent Cranial nerves [...] Abena Leal, ; May 05 2014 4:05PM TELECINE OPERATOR (Co-author) Electronically signed by : Fernie Erickson M.D.; May 05 2014 4:38PM TELECINE OPERATOR (Author) documented in this encounter Plan of Treatment Not on file documented as of this encounter Visit Diagnoses Not on filedocumented in this encounter Care Teams Manager Culinary Relationship Specialty Start Date End Date Pb Su MD [address] [place] [address] PCP - General 04/26/16 Pb Su MD [address] [place] [address] PCP - General 05/19/15 04/25/16 Pb Su MD [address] [place], [place] [address] PCP - General 12/07/14 05/18/15 Pb Su MD [address] [place], [place] [address] PCP - General 12/05/14 12/06/14 Pb Su MD [address] [place], [place] [address] PCP - General 03/23/14 12/04/14 documented as of this encounter
--- OUTSIDE RECORDS SUMMARY | 2024-11-15 05:10 | XMS_ITS | Encounter Summary ---
Author Organization [facility] Address [address] [place] [address]. [place], [place] [address] [place] [address] Care Team Providers Care Diversional Therapist'S Assistant Name Role Phone Pb Su MD Primary Care Provider [phone] Pb Su MD Primary Care Provider Pb Su MD Primary Care Provider Encounter Details Date Type Department Care Team (Latest Contact Info) Description 12/14/2014 Abstract [facility] Medical Group [...] Gi Aquino, ; Dec 14 2014 2:19PM CASSANDRA DEVELOPER (Author) documented in this encounter Plan of Treatment Not on file documented as of this encounter Visit Diagnoses Not on filedocumented in this encounter Care Teams Diversional Therapist'S Assistant Relationship Specialty Start Date End Date Pb Su MD [address] [place] [address] PCP - General 04/26/16 Pb Su MD [address] [place] [address] PCP - General 05/19/15 04/25/16 Pb Su MD [address] [facility] [address] PCP - General 12/07/14 05/18/15 documented as of this encounter
--- OUTSIDE RECORDS SUMMARY | 2024-11-15 05:10 | XMS_ITS | Encounter Summary ---
Author Organization [facility] Address [address] [place] [address]. [place], [place] [address] [place] [address] Care Team Providers Care Computer Lab Assistant Name Role Phone Pb Su MD Primary Care Provider [phone] Encounter Details Date Type Department Care Team (Latest Contact Info) Description 06/06/2016 Abstract [facility] Medical Group Social History Tobacco [...] on filedocumented in this encounter Care Teams Computer Lab Assistant Relationship Specialty Start Date End Date Pb Su MD [address] [place] [address] PCP - General 04/26/16 documented as of this encounter
--- OUTSIDE RECORDS SUMMARY | 2024-11-15 05:10 | XMS_ITS | Encounter Summary ---
Author Organization [facility] Address [address] [place] [address]. [place], [place] [address] [place] [address] Care Team Providers Care Planer Stone Name Role Phone Pb Su MD Primary Care Provider Pb Su MD Primary Care Provider Pb Su MD Primary Care Provider Pb Su MD Primary Care Provider [phone] Pb Su MD Primary Care Provider [phone] Encounter Details Date Type Department Care Team (Latest Contact Info) Description 04/01/2014 Abstract [facility] Medical Group Social History Tobacco Use [...] on filedocumented in this encounter Care Teams Planer Stone Relationship Specialty Start Date End Date Pb Su MD [address] [place], [place] [id number] PCP - General 04/26/16 Pb Su MD [address] [place], [place] [address] PCP - General 05/19/15 04/25/16 Pb Su MD [address] [place], [place] [id number] PCP - General 12/07/14 05/18/15 Pb Su MD [address] [place], [place] [id number] PCP - General 12/05/14 12/06/14 Pb Su MD [address] [place], [place] [address] PCP - General 03/23/14 12/04/14 documented as of this encounter
--- OUTSIDE RECORDS SUMMARY | 2024-11-15 05:10 | XMS_ITS | Encounter Summary ---
Author Organization [facility] Address [address] [place] [address]. [place] [address] [place] [address] Care Team Providers Care Systems Development Manager Name Role Phone Pb Su MD Primary Care Provider [phone] Pb Su MD Primary Care Provider Pb Su MD Primary Care Provider Pb Su MD Primary Care Provider Encounter Details Date Type Department Care Team (Late st Contact Info) Description 12/05/[address] [facility] Medical [facility] Family Medicine - [place] [address] [place] [phone] Pb Su MD [address] [place], [place] [address] Social History Tobacco Use Types Packs/Day Years Used Date Smoking Tobacco: Never Assessed Sex and Gender Information Value Date Recorded Sex Assigned at Not on file Legal Sex Male 7:22 PM CDT Gender Identity Not on file Sexual Orientation Not on file documented as of this encounter Last Filed Vital Signs Vital Sign Reading Time Taken Comments Blood Pressure 130/78 12/05/2014 11:15 AM SHIPPER Pulse 64 12/05/2014 11:15 AM SHIPPER Temperature - - Respiratory Rate - - Oxygen Saturation - - Inhaled Oxygen Concentration - - Weight 97.5 kg (215 lb) 12/05/2014 11:15 AM SHIPPER Height 182.9 cm (6') 12/05/2014 11:15 AM SHIPPER Body Mass Index 29.16 12/05/2014 11:15 AM SHIPPER documented in this encounter Progress Notes * Pb Su MD - 12/05/2014 11:15 AM CST Reason For Visit Reason For Visit: Chronic Recheck Visit Chief Complaint co fatigue Cough, fatigue, general ill feeling, joint pain. 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 He is an avid exercise enthusiast [...] are noted. Current treatment includes Increasing fluid, laod-kuf-uvwxqot cough and cold remedies. By report, there [...] 1. Claritin 10 MG Oral Tablet; Therapy: (Recorded:[id number]) to Recorded Dispense: 0 Days ; #: [...] 30-100 POTENTIAL INTOXICATION >100 TESTING PERFORMED AT [facility], A MEMBER OF THE [facility]. Chest x-ray - [...] Transmission to [facility]; Last Updated By: Badge; 12/05/2014 12:38:05 PM Fatigue 2. Free / Total Testosterone Status: Active Requested for: 05Dec2014 Perform: [facility] Due: 49Qrp5923; Ordered; For: Fatigue; Ordered By: Pb Su 3. Vitamin D 25 - Hydroxy Status: Resulted - Requires Verification Done: 07Dec2014 07:30AM Performed: [facility] [employer] [facility] [place] Due: 41Tox4502; Ordered; For: Fatigue; Ordered By: Pb Su CBC WO Diff ( Hemogram ) Status: Resulted - Requires Verification Done: 24Nov2023 12:00AM Due: 46Iqv3086; Ordered; For: Atrial fibrillation, Fatigue; Ordered By: Pb Su Compr Metabolic Prof ( CMP ) Status: Resulted - Requires Verification Done: 24Nov2023 12:00AM Due: 59Dvk9861; Ordered; For: Fatigue; Ordered By: Pb Su Lipid Profile Status: Resulted - Requires Verification Done: 24Nov2023 12:00AM Due: 22Lsx3571; Ordered; For: Fatigue; Ordered By: Pb Su TSH W Reflex Free T4 Status: Resulted - Requires Verification Done: 24Nov2023 12:00AM Due: 98Syq4914; Ordered; For: Fatigue; Ordered By: Pb Su Prostate Specif Ag ( PSA ) Scrn Status: Resulted - Requires Verification Done: 24Nov2023 12:00AM Due: 16Xsc9157; Ordered; For: Fatigue; Ordered By: Pb Su XR CHEST 2 VIEW ( Routine ) Status: Resulted - Requires Verification Done: 24Nov2023 12:00AM Due: 77Osw9452; Ordered; For: Cough, Fatigue; Ordered By: Pb [...] Pb Su M.D.; Dec 20 2014 1:58PM SHIPPER (Author) documented in this encounter Plan of Treatment Not on file documented as of this encounter Procedures Procedure Name Priority Date/Time Associated Diagnosis Comments TSH W/REFLEX Routine 12/07/2014 7:30 AM SHIPPER TESTOSTERONE, FREE & TOTAL Routine 12/07/2014 7:30 AM SHIPPER PROSTATE SPECIFIC ANTIGEN,TOTAL Routine 12/07/2014 7:30 AM SHIPPER COMPREHENSIVE METABOLIC PANEL Routine 12/07/2014 7:30 AM SHIPPER LIPID PANEL Routine 12/07/2014 7:30 AM SHIPPER CBC, AUTO, NO DIFF Routine 12/07/2014 7: 30 AM SHIPPER VITAMIN D, 25 OH Routine 12/07/2014 7:30 AM SHIPPER XR CHEST 2V+NIPPLE MARKER Routine 12/05/2014 12:38 PM SHIPPER documented in this encounter Results * PROSTATE SPECIFIC ANTIGEN,TOTAL (12/07/2014 7:30 AM SHIPPER) PSA 0.860 <4.0 ng/mL [facility] TO EPIC CONVERSION Comment: Result Comment: TEST WAS PERFORMED USING THE YADI METHOD. ??PSA VALUES OBTAINED WITH OTHER ASSAY METHODS OR KITS CANNOT BE USED INTERCHANGEABLY WITH RESULTS OBTAINED BY THE YAID METHOD. 12/07/2014 7:30 AM SHIPPER 12/07/2014 7:30 AM SHIPPER Narrative [facility] TO EPIC CONVERSION - 12/07/2014 4:30 PM SHIPPER Result Communication: No patient communication needed at this time us Pb Su MD LABORATORY Final Resul t [facility] TO EPIC CONVERSION * TSH W/REFLEX (SNS) (12/07/2014 7:30 AM SHIPPER) TSH 0.76 0.27 - 4.20 mIU/mL [facility] TO EPIC CONVERSION Comment:Result Comment: FREE T4 NOT INDICATED 12/07/2014 7:30 AM SHIPPER 12/07/2014 7:30 AM SHIPPER Narrative [facility] TO EPIC CONVERSION - 12/07/2014 4:30 PM SHIPPER Result Communication: No patient communication needed at this time Pb Su MD LABORATORY Final Resul t Performing Organization Address [facility] de Phone Number [facility] TO EPIC CONVERSION * VITAMIN D, 25 OH (12/07/2014 7:30 AM SHIPPER) VITAMIN D 25 HYDROXY S/P/B 30 30 - 100 NG/ML [facility] TO EPIC CONVERSION Comment: Result Comment: ?? SUPPLEMENTING WITH VITAMIN D2 MAY RESULT IN FALSELY LOW RESULTS, CLINICAL CORRELATION NEEDED. ? INTERPRETATION ? DEFICIENT ??<20 ?INSUFFICIENT 20-30 ?SUFFICIENT 30-100 POTENTIAL INTOXICATION ??>100 ? TESTING PERFORMED AT [facility], A MEMBER OF THE [facility]. 12/07/2014 7:30 AM SHIPPER 12/07/2014 7:30 AM SHIPPER Narrative [facility] TO EPIC CONVERSION - 12/08/2014 6:37 PM SHIPPER Result Communication: No patient communication needed at this time Pb Su MD LABORATORY Final Resul t Performing Organization Address [facility] de Phone Number [facility] TO EPIC CONVERSION * TESTOSTERONE, FREE & TOTAL (12/07/2014 7:30 AM SHIPPER) TESTOSTERONE TOTAL 331 [facility] TO EPIC CONVERSION Comment: Result Comment: Reference range: 250 to 1100 Unit: ng/dL For more information on this test, go to http://education.[employer]oth/faq/ TotalTestosteroneLCMSMS TESTOSTERONE FREE 71.5 ME [facility] TO EPIC CONVERSION Comment: Result Comment: Reference range: 35.0 to 155.0 Unit: pg/mL Test Performed by [facility], [address] [place], [place] Pb Garcia M.D., Ph.D., Director of Laboratories , [place] [id number] 12/07/2014 7:30 AM SHIPPER 12/07/2014 7:30 AM SHIPPER Narrative [facility] TO EPIC CONVERSION - 12/11/2014 12:03 PM SHIPPER Result Communication: No patient communication needed at this time us Pb Su MD LABORATORY Final Resul t [facility] TO EPIC CONVERSION * (ABNORMAL) LIPID PANEL (12/07/2014 7:30 AM SHIPPER) CHOLESTEROL 255(H) <200 mg/dL [facility] TO EPIC [...] [facility] TO EPIC CONVERSION 12/07/2014 7:30 AM SHIPPER 12/07/2014 7:30 AM SHIPPER Narrative [facility] TO EPIC CONVERSION - 12/07/2014 4:31 PM SHIPPER Result Communication: No patient communication needed at this time us Pb Su MD LABORATORY Final Resul t [facility] TO EPIC CONVERSION * COMPREHENSIVE METABOLIC PANEL (12/07/2014 7:30 AM SHIPPER) SODIUM S/P/B 139 136 - 145 mmol/L [...] [facility] TO EPIC CONVERSION 12/07/2014 7:30 AM SHIPPER 12/07/2014 7:30 AM SHIPPER Narrative [facility] TO EPIC CONVERSION - 12/07/2014 4:31 PM SHIPPER Result Communication: No patient communication needed at this time us Pb Su MD LABORATORY Final Resul t [facility] TO EPIC CONVERSION * (ABNORMAL) CBC, AUTO, NO DIFF (12/07/2014 7:30 AM SHIPPER) WBC 12.1(H) 4.8 - 10.8 X10'3/uL [facility] [...] [facility] TO EPIC CONVERSION 12/07/2014 7:30 AM SHIPPER 12/07/2014 7:30 AM SHIPPER Narrative [facility] TO EPIC CONVERSION - 12/07/2014 3:14 PM SHIPPER Result Communication: No patient communication needed at this time Pb Su MD LABORATORY Final Resul t [facility] TO EPIC CONVERSION * XR CHEST 2V+NIPPLE MARKER (12/05/2014 12:38 PM SHIPPER) Anatomical Region Laterality Modality Chest Radiographic Clary ging 12/05/2014 12:3 8 PM SHIPPER 12/05/2014 12:38 PM SHIPPER Narrative 12/06/2014 12:38 PM SHIPPER AVA CEDILLO ORDERING MD: PB SU MD ?? ACCT: [id number] ?? ADMIT/SERVICE DATE: 12/05/14 DISCHARGE DATE: ?? : 1965 PT TYPE: REG CLI ?? SEX: M ORD SITE: [facility] [place] [facility] ? STUDY DATE REPORT # PROCEDURE CODE PROCEDURE ?? 12/05/14 [id number] CXR2V XR CHEST 2 VIEW ? EXTORDERID ? [id number] ? ACCESSION NUMBER ?? [id number] ?CHART DOCUMENT ? IMPRESSION: ? MILD BRONCHITIS [...] LANCASTER M.D. ? D: ??12/05/2014 12:38 P ??#[id number] ?? T: ??12/05/2014 01:22 P/MA ? CC: ?PB SU M.D. ? Procedure Note Pb Su MD - 09/16/2018 AVA CEDILLO JR, MD: PB SU MD ACCT: [id number] ADMIT/SERVICE DATE: 12/05/14 DISCHARGE DATE: : 1965 PT TYPE: REG CLI SEX: M ORD SITE: [facility] OUTPAT[facility] IMAGING STUDY DATE REPORT # PROCEDURE CODE PROCEDURE 12/05/14 [id number] CXR2V XR CHEST 2 VIEW EXTORDERID [id number] ACCESSION NUMBER [id number] CHART DOCUMENT IMPRESSION: MILD BRONCHITIS AND POSSIBLE [...] 12/06/2014 12:36 P ROLANDA LANCASTER M.D. P #[id number] P/MA CC: PB SU M.D. Pb Su MD GENERAL IMAGING Final Resul t documented in this encounter Visit Diagnoses Not on filedocumented in this encounter Care Teams Systems Development Manager Relationship Specialty Start Date End Date Pb Su MD [address] [place], [place] [id number] PCP - General 04/26/16 Pb Su MD [address] [place], [place] [address] PCP - General 05/19/15 04/25/16 Pb Su MD [address] [place] [address] PCP - General 12/07/14 05/18/15 Pb Su MD [address] [place] [address] PCP - General 12/05/14 12/06/14 documented as of this encounter
--- OUTSIDE RECORDS SUMMARY | 2024-11-15 05:10 | XMS_ITS | Encounter Summary ---
Author Organization [facility] Address [address] [place] [address]. [place], [place] [address] [place] [address] Care Team Providers Care Wound Care Technician Name Role Phone Pb Su MD Primary Care Provider [phone] Encounter Details Date Type Department Care Team (Latest Contact Info) Description 04/07/2017 Abstract [facility] Medical Group Social History Tobacco Use [...] on filedocumented in this encounter Care Teams Wound Care Technician Relationship Specialty Start Date End Date Pb Su MD [address] [place] [address] PCP - General 04/26/16 documented as of this encounter
--- OUTSIDE RECORDS SUMMARY | 2024-11-15 05:10 | XMS_ITS | Encounter Summary ---
Author Organization [facility] Address [address] [place] [address]. [place], [place] [address] [place] [address] Care Team Providers Care Freelance Photographer Name Role Phone Pb Su MD Primary [...] Team (Latest Contact Info) Description 07/07/2013 Abstract [facility] on filedocumented in this encounter Care Teams Freelance Photographer Relationship Specialty Start Date End Date Pb Su MD [address] [place], [place] [address] PCP - General 04/26/16 Pb Su MD [address] [place] [address] PCP - General 05/19/15 04/25/16 Pb Su MD [address] [place], [place] [address] PCP - General 12/07/14 05/18/15 Pb Su MD [address] [place] [address] PCP - General 12/05/14 12/06/14 Pb Su MD [address] [place], [place] [address] PCP - General 03/23/14 12/04/14 Pb Su MD [address] [place] [address] PCP - General 03/21/14 03/22/14 Pb Su MD [address] [place] [address] PCP - General 03/16/14 03/20/14 Pb Su MD [address] [place], [place] [address] PCP - General 03/14/14 03/15/14 Pb Su MD [address] [place], [place] [address] PCP - General 03/09/14 03/13/14 Pb Su MD [address] [place] [address] PCP - General 03/02/14 03/08/14 Pb Su MD [address] [place], [place] [address] PCP - General 02/28/14 03/01/14 Pb Su MD [address] [place], [place] [address] PCP - General 02/25/14 02/27/14 Pb Su MD [address] [place] [address] PCP - General 02/23/14 02/24/14 Pb Su MD [address] [place] [address] PCP - General 02/17/14 02/22/14 Pb Su MD [address] [place], [place] [address] PCP - General 11/02/13 02/16/14 Pb Su MD [address] [place], [place] [address] PCP - General 09/30/13 11/01/13 Pb Su MD [address] [place], [place] [address] PCP - General 06/10/13 09/29/13 documented as of this encounter
--- OUTSIDE RECORDS SUMMARY | 2024-11-15 05:10 | XMS_ITS | Encounter Summary ---
Author Organization [facility] Address [address] [place] [address]. [place], [place] [address] [place] [address] Care Team Providers Care Online Marketing Strategist Name Role Phone Pb Su MD Primary [...] (Late st Contact Info) Description 11/02/2013 Abstract [facility] Medical Group Family Medicine - [place] [address] [place] [address] Pb Su MD [address] [place] [address] Social History Tobacco Use Types Packs/Day Years Used Date Smoking Tobacco: Never Assessed Sex and Gender Information Value Date Recorded Sex Assigned at Not on file Legal Sex Male 7:22 PM CDT Gender Identity Not on file Sexual Orientation Not on file documented as of this encounter Last Filed Vital Signs Vital Sign Reading Time Taken Comments Blood Pressure 112/70 11/02/2013 8:10 AM UPHOLSTERED GOODS CRAFTER Pulse 64 11/02/2013 8:10 AM UPHOLSTERED GOODS CRAFTER Temperature - - Respiratory Rate - - Oxygen Saturation - - Inhaled Oxygen Concentration - - Weight 100.2 kg (221 lb) 11/02/2013 8:10 AM UPHOLSTERED GOODS CRAFTER Height 182.9 cm (6') 11/02/2013 8:10 AM UPHOLSTERED GOODS CRAFTER Body Mass Index 29.97 11/02/2013 8:10 AM UPHOLSTERED GOODS CRAFTER documented in this encounter Progress Notes * [...] 1 TABLET BY MOUTH AT BEDTIME; Therapy: 46Bwv3991 to (Evaluate:82Uwy2348); Last Rx:67Dhf2304 2. Claritin 10 MG Oral Tablet; Therapy: (Recorded:99Hyd4754) to Allergies 1. Acetaminophen-Codeine #3 TABS Vitals [...] 1 TABLET 3 TIMES DAILY NEEDED; Therapy: 90Hoy5557 to (Evaluate:12Dec2013); Last Rx:55Ybj2895 Signatures Electronically signed by : Randee Morrow, ; Nov 02 2013 8:48AM (Author) LSTERED GOODS CRAFTER * Pb Su MD - 11/02/2013 8:15 [...] history: previous back injury. 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 Acetaminophen-Codeine #3 TABS Vitals 54Jxa5942 08:10AM Temperature 97 F, Oral Heart Rate [...] Normal finger to nose and heel to apez. Assessment 1. Lower Back Pain 724.2 Plan 1. Cyclobenzaprine HCl 10 MG Oral Tablet; TAKE 1 TABLET 3 TIMES DAILY NEEDED; Therapy: 23Ehb1866 to (Evaluate:12Dec2013) Requested for: 39Pwr1263; Last Rx:09Qmg9872; Edited Ordered; For: Lower Back Pain (724.2); Rx By: Pb Su; Dispense: 10 Days ; #:30 Tablet; Refill: 3; Verified Transmission to [facility] 2. Call if: The pain is not better in 2 weeks. Done: 21Jja0253 Ordered; For: Lower Back Pain (724.2); Ordered By: Pb Su 3. Call if: The pain seems worse. Done: 00Rpn2727 Ordered; For: Lower Back Pain (724.2); Ordered By: Pb Su 4. Call if: You get a headache that does not go away with your usual treatment. Done: 77Ihi5575 Ordered; For: Lower Back Pain (724.2); Ordered By: Pb Su 5. Call if: You get a rash. Done: 40Mty6396 Ordered; For: Lower Back Pain (724.2); Ordered By: Pb Su 6. Call if: You get a severe headache that seems different from your usual ones. Done: 09Vwn0681 Ordered; For: Lower Back Pain (724.2); Ordered By: Pb Su 7. Call if: You have pain or numbness from your back to your hip and leg. Done: 26Lwe7203 Ordered; For: Lower Back Pain (724.2); Ordered By: Pb Su 8. Call if: You lose weight without trying to. Done: 63Kph7306 Ordered; For: Lower Back Pain (724.2); Ordered By: Pb Su 9. Call if: Your temperature is higher than 101F. Done: 50Mit9885 Ordered; For: Lower Back Pain (724.2); Ordered By: Pb Su 10. Call 911 if: You have any loss of bowel or bladder control. Done: 69Gzl4894 Ordered; For: Lower Back Pain (724.2); Ordered By: Pb Su 11. Call 911 if: You have signs of dangerous pressure on the nerves in your pelvis. Done: 80Cfb1736 Ordered; For: Lower Back Pain (724.2); Ordered By: Pb Su 12. Seek Immediate Medical Attention if: Your foot becomes weak. Done: 86Pbh9005 Ordered; For: Lower Back Pain (724.2); Ordered By: Pb Su 13. Seek Immediate Medical Attention if: Your leg is numb, cold, or tingling. Done: 44Ypq4687 Ordered; For: Lower Back Pain (724.2); Ordered By: Pb Su 14. Avoid being constipated and avoid straining while having a bowel movement. Done: 10Ypr5606 Ordered; For: Lower Back Pain (724.2); Ordered By: Pb Su 15. Begin a walking program. Start with walks lasting 10 minutes and slowly work up to 30-40 minutes as pain allows. Done: 61Byt5958 Ordered; For: Lower Back Pain (724.2); Ordered By: Pb Su 16. Some eating tips that can help you lose weight. Done: 22Kga2127 Ordered; For: Lower Back Pain (724.2); Ordered By: Pb Su 17. We recommend that you avoid straining your back while lifting. Done: 17Fys4746 Ordered; For: Lower Back Pain (724.2); Ordered By: Pb Su Discussion/Summary Summary: 48 yo male with low back pain/spasm: see Care Guide. Plan-IM toradol + muscle relaxant, + heating pad/rest! See Care Guide Signatures Electronically signed by : Pb Su M.D.; Nov 02 2013 2:29PM (Author) LSTERED GOODS CRAFTER documented in this encounter Plan of Treatment Not on file documented as of this encounter Visit Diagnoses Not on filedocumented in this encounter Care Teams Online Marketing Strategist Relationship Specialty Start Date End Date Pb Su MD [address] [place], [place] [address] PCP - General 04/26/16 Pb Su MD [address] [place], [place] [address] PCP - General 05/19/15 04/25/16 Pb Su MD [address] [place], [place] [address] PCP - General 12/07/14 05/18/15 Pb Su MD [address] [place], [place] [address] PCP - General 12/05/14 12/06/14 Pb Su MD [address] [place] [address] PCP - General 03/23/14 12/04/14 Pb Su MD [address] [place] [address] PCP - General 03/21/14 03/22/14 Pb Su MD [address] [place] [address] PCP - General 03/16/14 03/20/14 Pb Su MD [address] [place] [address] PCP - General 03/14/14 03/15/14 Pb Su MD [address] [place], [place] [address] PCP - General 03/09/14 03/13/14 Pb Su MD [address] [place], [place] [address] PCP - General 03/02/14 03/08/14 Pb Su MD [address] [place], [place] [address] PCP - General 02/28/14 03/01/14 Pb Su MD [address] [place], [place] [address] PCP - General 02/25/14 02/27/14 Pb Su MD [address] [place] [address] PCP - General 02/23/14 02/24/14 Pb Su MD [address] [place] [address] PCP - General 02/17/14 02/22/14 Pb Su MD [address] [place] [address] PCP - General 11/02/13 02/16/14 documented as of this encounter
--- OUTSIDE RECORDS SUMMARY | 2024-11-15 05:10 | XMS_ITS | Encounter Summary ---
Author Organization [facility] Address [address] [place] [address]. [place], [place] [address] [place] [address] Care Team Providers Care Angle Shearer Name Role Phone Pb Su MD Primary Care Provider [phone] Encounter Details Date Type Department Care Team (Latest Contact Info) Description 11/11/2016 Abstract [facility] Medical Group Social History Tobacco [...] on filedocumented in this encounter Care Teams Angle Shearer Relationship Specialty Start Date End Date Pb Su MD [address] [place] [address] PCP - General 04/26/16 documented as of this encounter
--- OUTSIDE RECORDS SUMMARY | 2024-11-15 05:10 | XMS_ITS | Encounter Summary ---
Author Organization [facility] Address [address] [place] [address]. [place] [address] [place] [address] Care Team Providers Care Cyber Legal Advisor Name Role Phone Pb Su MD Primary Care Provider [phone] Pb Su MD Primary Care Provider Pb Su MD Primary Care Provider [phone] Encounter Details Date Type Department Care Team (Latest Contact Info) Description 01/03/2015 Abstract [facility] Medical Group Social [...] filedocumented in this encounter Care Teams Cyber Legal Advisor Relationship Specialty Start Date End Date Pb Su MD [address] [place], [place] [address] PCP - General 04/26/16 Pb Su MD [address] [place], [place] [address] PCP - General 05/19/15 04/25/16 Pb Su MD [address] [place] [address] PCP - General 12/07/14 05/18/15 documented as of this encounter
--- OUTSIDE RECORDS SUMMARY | 2024-11-15 05:10 | XMS_ITS | Encounter Summary ---
Author Organization [facility] Address [address] [place] [address]. [place], [place] [address] [place] [address] Care Team Providers Care Billboard Poster Name Role Phone Pb Su MD Primary Care Provider [phone] Encounter Details Date Type Department Care Team (Late st Contact Info) Description 04/26/2016 Abstract [facility] Family Medicine - [place] [address] [place] [phone] Pb Su MD [address] [place] [address] Social History Tobacco Use Types Packs/Day Years [...] Visit Annual physical Reason For Visit: Health Supervisor Pile Driving Complaint Patient here for annual physical exam. [...] spouse. He is . 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 The patient has never smoked cigarettes and [...] 1. Claritin 10 MG Oral Tablet; Therapy: (Recorded:[id number]) to Recorded Dispense: 0 Days ; #: [...] He was advised osmany evaluated by an jail manager and a dentist. Advice and education were [...] Pb Su M.D.; Apr 26 2016 11:50AM DIE ATTACHER (Author) documented in this encounter Plan of Treatment Not on file documented as of this encounter Visit Diagnoses Not on filedocumented in this encounter Care Teams Billboard Poster Relationship Specialty Start Date End Date Pb Su MD [address] [place] [address] PCP - General 04/26/16 documented as of this encounter
--- OUTSIDE RECORDS SUMMARY | 2024-11-15 05:10 | XMS_ITS | Encounter Summary ---
Author Organization [facility] Address [address] [place] [address]. [place], [place] [address] [place] [address] Care Team Providers Care Hall Coordinator Name Role Phone Pb Su MD [...] Team (Latest Contact Info) Description 10/30/2013 Abstract [facility] [...] on filedocumented in this encounter Care Teams Hall Coordinator Relationship Specialty Start Date End Date Pb Su MD [address] [place], [place] [address] PCP - General 04/26/16 Pb Su MD [address] [place] [address] PCP - General 05/19/15 04/25/16 Pb Su MD [address] [place] [address] PCP - General 12/07/14 05/18/15 Pb Su MD [address] [place] [address] PCP - General 12/05/14 12/06/14 Pb Su MD [address] [place], [place] [address] PCP - General 03/23/14 12/04/14 Pb Su MD [address] [place] [address] PCP - General 03/21/14 03/22/14 Pb Su MD [address] [place] [address] PCP - General 03/16/14 03/20/14 Pb Su MD [address] [place] [address] PCP - General 03/14/14 03/15/14 Pb Su MD [address] [place], [place] [address] PCP - General 03/09/14 03/13/14 Pb Su MD [address] [place] [address] PCP - General 03/02/14 03/08/14 Pb Su MD [address] [place] [address] PCP - General 02/28/14 03/01/14 Pb Su MD [address] [place] [address] PCP - General 02/25/14 02/27/14 Pb Su MD [address] [place] [address] PCP - General 02/23/14 02/24/14 Pb Su MD [address] [place] [address] PCP - General 02/17/14 02/22/14 Pb Su MD [address] [place] [address] PCP - General 11/02/13 02/16/14 Pb Su MD [address] [place] [address] PCP - General 09/30/13 11/01/13 documented as of this encounter
--- OUTSIDE RECORDS SUMMARY | 2024-11-15 05:10 | XMS_ITS | Clinical Summary ---
Author Organization [facility] Address [address] [place] [address]. [place], [place] [address] [place] [address] Care Team Providers Care Fund Accountant Name Role Phone Pb Su MD [...] Comments Blood Pressure 120/64 10/21/2016 10:12 AM DIRECTOR OF REHABILITATIVE SERVICES Pulse 67 10/21/2016 10:12 AM DIRECTOR OF REHABILITATIVE SERVICES Temperature - - Respiratory Rate - - [...] age to complete this topic Care Teams Fund Accountant Relationship Specialty Start Date End Date Pb Su MD [address] [place], [place] [address] PCP - General 04/26/16
--- OUTSIDE RECORDS SUMMARY | 2024-11-15 05:10 | XMS_ITS | Encounter Summary ---
Author Organization [facility] Address [address] [place] [address]. [place] [address] [place] [address] Care Team Providers Care Metal Door Assembler Name Role Phone Pb Su MD Primary Care Provider Pb Su MD Primary Care Provider Pb Su MD Primary Care Provider Encounter Details Date Type Department Care Team (Late st Contact Info) Description 12/07/2014 Abstract [facility] [place], [place] [phone] Pb Su MD [address] [place], [place] [address] Social History Tobacco Use Types Packs/Day Years Used Date Smoking Tobacco: Never Assessed Sex and Gender Information Value Date Recorded Sex Assigned at Not on file Legal Sex Male 7:22 PM CDT Gender Identity Not on file Sexual Orientation Not on file documented as of this encounter Plan of Treatment Not on file documented as of this encounter Visit Diagnoses Diagnosis Atrial fibrillation ([facility]) Atrial fibrillation documented in this encounter Care Teams Metal Door Assembler Relationship Specialty Start Date End Date Pb Su MD [address] [place], [place] [address] PCP - General 04/26/16 Pb Su MD [address] [place] [address] PCP - General 05/19/15 04/25/16 Pb Su MD [address] [place] [address] PCP - General 12/07/14 05/18/15 documented as of this encounter
--- OUTSIDE RECORDS SUMMARY | 2024-11-15 05:10 | XMS_ITS | Encounter Summary ---
Author Organization [facility] Address [address] [place] [address]. [place], [place] [address] [place] [address] Care Team Providers Care Rehabilitation Center Manager Name Role Phone Pb Su MD [...] Team (Latest Contact Info) Description 09/30/2013 Abstract [facility] Pb Su MD [address] [place] [address] Social History Tobacco Use Types Packs/Day Years [...] HAND LT 3V Routine 09/30/2013 8:48 AM FINANCE ASSISTANT documented in this encounter Results * XR HAND LT 3V (09/30/2013 8:48 AM FINANCE ASSISTANT) Anatomical Region Laterality Modality Hand Radiographic Clary ging 09/30/2013 8:48 AM FINANCE ASSISTANT 09/30/2013 8:48 AM FINANCE ASSISTANT Narrative 09/30/2013 10:51 AM FINANCE ASSISTANT AVA CEDILLO JR MD: PB SU MD ?? ACCT: [id number] ?? : 1965 PT TYPE: REG CLI ?? SEX: M ORD SITE: [facility] OUTPT IMAGING ? STUDY DATE REPORT # PROCEDURE CODE PROCEDURE ?? 09/30/13 [id number] XR HAND MINIMUM 3 VIEW LT ? EXTORDERID ? [id number] ? ACCESSION NUMBER ?? [id number] ?CHART DOCUMENT ? IMPRESSION: ? NO ACUTE [...] HENDRICKSON M.D. ? D: ??09/30/2013 ??8:56 A ??#[id number] ?? T: ??09/30/2013 ??9:15 A/MA ? CC: ?PB SU M.D. ? Radiology image is available. Click on Image Link above. Procedure Note Vahe Chatterjee MD - 09/17/2018 AVA CEDILLO JR MD: PB SU MD ACCT: [id number] : 1965 PT TYPE: REG CLI SEX: M ORD SITE: [facility] OUTPT IMAGING STUDY DATE REPORT # PROCEDURE CODE PROCEDURE 09/30/13 [id number] XR HAND MINIMUM 3 VIEW LT EXTORDERID [id number] ACCESSION NUMBER [id number] CHART DOCUMENT IMPRESSION: NO ACUTE OSSEOUS ABNORMALITIES. NO SIGNIFICANT FEATURES OF ARTHRITIS. HISTORY: PAIN IN BOTH HANDS X3 WEEKS. HISTORY OF ARTHRITIS. THREE VIEWS LEFT HAND FINDINGS: NO ACUTE FRACTURE OR DISLOCATION. JOINT SPACES ARE PRESERVED. NO DESTRUCTIVE OSSEOUS, LYTIC, OR SCLEROTIC LESION. NO RADIOPAQUEFOREIGN BODIES. ELECTRONICALLY SIGNED BY: KEL HENDRICKSON M.D. 09/30/2013 10:50 KEL HENDRICKSON M.D. A #[id number] A/MATILDE CC: PB SU M.D. Radiology image is available. Click on Image Link above. us Pb Su MD GENERAL IMAGING Final Resul t documented in this encounter Visit Diagnoses Not on filedocumented in this encounter Care Teams Rehabilitation Center Manager Relationship Specialty Start Date End Date Pb Su MD [address] [place] [address] PCP - General 04/26/16 Pb Su MD [address] [place] [address] PCP - General 05/19/15 04/25/16 Pb Su MD [address] [place] [address] PCP - General 12/07/14 05/18/15 Pb Su MD [address] [place] [address] PCP - General 12/05/14 12/06/14 Pb Su MD [address] [place], [place] [address] PCP - General 03/23/14 12/04/14 Pb Su MD [address] [place] [address] PCP - General 03/21/14 03/22/14 Pb Su MD [address] [place], [place] [address] PCP - General 03/16/14 03/20/14 Pb Su MD [address] [place], [place] [address] PCP - General 03/14/14 03/15/14 Pb Su MD [address] [place], [place] [address] PCP - General 03/09/14 03/13/14 Pb Su MD [address] [place] [address] PCP - General 03/02/14 03/08/14 Pb Su MD [address] [place], [place] [address] PCP - General 02/28/14 03/01/14 Pb Su MD [address] [place] [address] PCP - General 02/25/14 02/27/14 Pb Su MD [address] [place] [address] PCP - General 02/23/14 02/24/14 Pb Su MD [address] [place], [place] [address] PCP - General 02/17/14 02/22/14 Pb Su MD [address] [place] [address] PCP - General 11/02/13 02/16/14 Pb Su MD [address] [place], [place] [address] PCP - General 09/30/13 11/01/13 documented as of this encounter
--- OUTSIDE RECORDS SUMMARY | 2024-11-15 05:10 | XMS_ITS | Encounter Summary ---
Author Organization [facility] Address [address] [place] [address]. [place], [place] [address] [place] [address] Care Team Providers Care Landscape Architect Name Role Phone Pb Su MD Primary Care Provider [phone] Encounter Details Date Type Department Care Team (Latest Contact Info) Description 06/05/2016 Abstract [facility] Social History [...] on filedocumented in this encounter Care Teams Landscape Architect Relationship Specialty Start Date End Date Pb Su MD [address] [place] [address] PCP - General 04/26/16 documented as of this encounter
--- OUTSIDE RECORDS SUMMARY | 2024-11-15 05:10 | XMS_ITS | Encounter Summary ---
Author Organization [facility] Address [address] [place] [address]. [place], [place] [address] [place] [address] Care Team Providers Care Order Caller Name Role Phone Pb Su MD Primary [...] (Late st Contact Info) Description 01/20/2014 Abstract [facility] Family Medicine - [place] [address] [place] [address] Pb Su MD [address] [place] [address] Social History Tobacco Use Types Packs/Day Years Used Date Smoking Tobacco: Never Assessed Sex and Gender Information Value Date Recorded Sex Assigned at Not on file Legal Sex Male 7:22 PM CDT Gender Identity Not on file Sexual Orientation Not on file documented as of this encounter Last Filed Vital Signs Vital Sign Reading Time Taken Comments Blood Pressure 110/64 01/20/2014 8:00 AM FLOOR SPACE ALLOCATOR Pulse 68 01/20/2014 8:00 AM FLOOR SPACE ALLOCATOR Temperature - - Respiratory Rate - - Oxygen Saturation - - Inhaled Oxygen Concentration - - Weight 100.2 kg (221 lb) 01/20/2014 8:00 AM FLOOR SPACE ALLOCATOR Height 182.9 cm (6') 01/20/2014 8:00 AM FLOOR SPACE ALLOCATOR Body Mass Index 29.97 01/20/2014 8:00 AM FLOOR SPACE ALLOCATOR documented in this encounter Progress Notes * [...] 1 TABLET BY MOUTH AT BEDTIME; Therapy: 26Vvx0129 to (Evaluate:26Nni0846); Last Rx:[id number] Ordered 2. Claritin 10 MG Oral Tablet; Therapy: (Recorded:96Vzl2528) to Recorded 3. Cyclobenzaprine HCl - 10 MG Oral Tablet; TAKE 1 TABLET 3 TIMES DAILY NEEDED; Therapy: 75Ubm8008 to (Evaluate:26Feb2014) Requested for: 64Oeo6784; Last Rx:[id number] Ordered 4. TraMADol HCl - 50 MG Oral Tablet; TAKE 1 TABLET 3 TIMES DAILY; Therapy: 07Apq3735 to (Evaluate:06Feb2014); Last Rx:[id number] Ordered Allergies 1. Acetaminophen-Codeine #3 TABS Vitals Recorded by : Denisse Ceja at 35Djs1097 08:00AM Temperature 97.7 F, Oral Heart Rate [...] the first 2 days. Status: Complete Done: 92Vmi9111 03:30PM Ordered; For: Right knee pain; Ordered By: Pb Su 2. Apply cold compresses 4 times a day for 20 minutes to help relieve pain or itching. Status: Complete Done: 83Xjs6612 03:30PM Ordered; For: Right knee pain; Ordered By: Pb Su 3. Apply ice to your knee for 30 minutes after exercise to help reduce swelling and pain. Status: Complete Done: 06Wfz1782 03:30PM Ordered; For: Right knee pain; Ordered By: Pb Su 4. Call if: Swelling of the ankle is not better in 2 days. Status: Complete Done: 80Mhz0238 03:30PM Ordered; For: Right knee pain; Ordered By: Pb Su 5. Call if: The pain is not better in 2 days. Status: Complete Done: 11Nzc5219 03:30PM Ordered; For: Right knee pain; Ordered By: Pb Su 6. Call if: The pain seems worse. Status: Complete Done: 62Rla0288 03:30PM Ordered; For: Right knee pain; Ordered By: Pb Su 7. Call if: The symptoms are not better in 7 days. Status: Complete Done: 97Lpl2252 03:30PM Ordered; For: Right knee pain; Ordered By: Pb Su 8. Call if: The symptoms come back after a period of time of being normal. Status: Complete Done: 63Hrs7994 03:30PM Ordered; For: Right knee pain; Ordered By: Pb Su 9. Call if: Your ankle swelling is getting worse. Status: Complete Done: 50Pok3087 03:30PM Ordered; For: Right knee pain; Ordered By: Pb Su 10. Call if: Your knee continues to feel unsteady or gives way. Status: Complete Done: 90Qxt3688 03:30PM Ordered; For: Right knee pain; Ordered By: Pb Su 11. Call if: Your knee locks so you cannot bend or straighten it. Status: Complete Done: 29Pkb1168 03:30PM Ordered; For: Right knee pain; Ordered By: Pb Su Orthopedic Surgery Referral Outpatient 48 yo male: chronic and progressive knee pain/stiffness and large soft tissue swwelling over patella.. Request [facility] orthopedic consult with Dr Mak for eval/treatment! Request Tricae Authorization for [facility] ongoing care with Dr Singh Mak Status: Need Info rmation - Financial Authorization Requested for: [id number] Ordered; For: Knee pain, right; Ordered By: Pb Su Performed: Due: 03Feb2014 Discussion/Summary Summary: 48 yo male with chronic right knee pain: noted to have soft tissue swelling/ fibrocystic chsnges.Differential diagnosis to include fibrocystic soft tissue swelling. Referred to [facility] Orthopedic Surgery Signatures Electronically signed by : Pb Su M.D.; Jan 20 2014 3:32PM FLOOR SPACE ALLOCATOR (Author) R SPACE ALLOCATOR documented in this encounter Plan of Treatment Not on file documented as of this encounter Visit Diagnoses Not on filedocumented in this encounter Care Teams Order Caller Relationship Specialty Start Date End Date Pb Su MD [address] [place], [place] [address] PCP - General 04/26/16 Pb Su MD [address] [place], [place] [address] PCP - General 05/19/15 04/25/16 Pb Su MD [address] [place], [place] [address] PCP - General 12/07/14 05/18/15 Pb Su MD [address] [place] [address] PCP - General 12/05/14 12/06/14 Pb Su MD [address] [place], [place] [address] PCP - General 03/23/14 12/04/14 Pb Su MD [address] [place] [address] PCP - General 03/21/14 03/22/14 Pb Su MD [address] [place] [address] PCP - General 03/16/14 03/20/14 Pb Su MD [address] [place] [address] PCP - General 03/14/14 03/15/14 Pb Su MD [address] [place], [place] [address] PCP - General 03/09/14 03/13/14 Pb Su MD [address] [place] [address] PCP - General 03/02/14 03/08/14 Pb Su MD [address] [place], [place] [address] PCP - General 02/28/14 03/01/14 Pb Su MD [address] [place], [place] [address] PCP - General 02/25/14 02/27/14 Pb Su MD [address] [place] [address] PCP - General 02/23/14 02/24/14 Pb Su MD [address] [place] [address] PCP - General 02/17/14 02/22/14 Pb Su MD [address] [place] [address] PCP - General 11/02/13 02/16/14 documented as of this encounter
--- OUTSIDE RECORDS SUMMARY | 2024-11-15 05:10 | XMS_ITS | Encounter Summary ---
Author Organization [facility] Address [address] [place] [address]. [place], [place] [address] [place] [address] Care Team Providers Care Loft Rigger Name Role Phone Pb Su MD Primary Care Provider Pb Su MD Primary Care Provider [phone] Pb Su MD Primary Care Provider Pb Su MD Primary Care Provider [phone] Pb Su MD Primary Care Provider Encounter Details Date Type Department Care Team (Latest Contact Info) Description 04/04/2014 Abstract [facility] Medical [facility] Social [...] on filedocumented in this encounter Care Teams Loft Rigger Relationship Specialty Start Date End Date Pb Su MD [address] [place], [place] [address] PCP - General 04/26/16 Pb Su MD [address] [place], [place] [address] PCP - General 05/19/15 04/25/16 Pb Su MD [address] [place], [place] [address] PCP - General 12/07/14 05/18/15 Pb Su MD [address] [place] [address] PCP - General 12/05/14 12/06/14 Pb Su MD [address] [place], [place] [address] PCP - General 03/23/14 12/04/14 documented as of this encounter
--- OUTSIDE RECORDS SUMMARY | 2024-11-15 05:10 | XMS_ITS | Encounter Summary ---
Author Organization [facility] Address [address] [place] [address]. [place], [place] [address] [place] [address] Care Team Providers Care Overnight Babysitter Name Role Phone Pb Su MD Primary Care Provider [phone] Encounter Details Date Type Department Care Team (Latest Contact Info) Description 10/22/2017 Abstract [facility] Medical [facility] Social [...] on filedocumented in this encounter Care Teams Overnight Babysitter Relationship Specialty Start Date End Date Pb Su MD [address] [place] [address] PCP - General 04/26/16 documented as of this encounter
--- OUTSIDE RECORDS SUMMARY | 2024-11-15 05:10 | XMS_ITS | Encounter Summary ---
Author Organization [facility] Address [address] [place] [address]. [place], [place] [address] [place] [address] Care Team Providers Care Bottle Packer Name Role Phone Pb Su MD Primary Care Provider [phone] Pb Su MD Primary Care Provider [phone] Encounter Details Date Type Department Care Team (Latest Contact Info) Description 09/28/2015 Abstract [facility] Medical [facility] Social [...] on filedocumented in this encounter Care Teams Bottle Packer Relationship Specialty Start Date End Date Pb Su MD [address] [place] [address] PCP - General 04/26/16 Pb Su MD [address] [place] [address] PCP - General 05/19/15 04/25/16 documented as of this encounter
--- OUTSIDE RECORDS SUMMARY | 2024-11-15 05:10 | XMS_ITS | Encounter Summary ---
Author Organization [facility] Address [address] [place] [address]. [place] [address] [place] [address] Care Team Providers Care Broomcorn Grader Name Role Phone Pb Su MD Primary Care Provider [phone] Encounter Details Date Type Department Care Team (Latest Contact Info) Description 04/30/2016 Abstract [facility] Medical [...] 30-100 POTENTIAL INTOXICATION >100 TESTING PERFORMED AT [address] [address] documented in this encounter Plan of Treatment Not on file documented as of this encounter Visit Diagnoses Not on filedocumented in this encounter Care Teams Broomcorn Grader Relationship Specialty Start Date End Date Pb Su MD [address] [place] [address] PCP - General 04/26/16 documented as of this encounter
--- OUTSIDE RECORDS SUMMARY | 2024-11-15 05:10 | XMS_ITS | Encounter Summary ---
Author Organization [facility] Address [address] [place] [address]. [place] [address] [place] [address] Care Team Providers Care Leach Runner Name Role Phone Pb Su MD Primary Care Provider [phone] Encounter Details Date Type Department Care Team (Latest Contact Info) Description 06/04/2016 Abstract [facility] Social History Tobacco Use [...] Tiffanie Murillo R.N.; Jun 04 2016 1:39PM ASSISTANT PROFESSOR OF LIFE SCIENCES (Author) documented in this encounter Plan of Treatment Not on file documented as of this encounter Visit Diagnoses Not on filedocumented in this encounter Care Teams Leach Runner Relationship Specialty Start Date End Date Pb Su MD [address] [place] [address] PCP - General 04/26/16 documented as of this encounter
--- OUTSIDE RECORDS SUMMARY | 2024-11-15 05:10 | XMS_ITS | Encounter Summary ---
Author Organization [facility] Address [address] [place] [address]. [place], [place] [address] [place] [address] Care Team Providers Care Daycare Manager Name Role Phone Pb Su MD [...] Team (Latest Contact Info) Description 11/29/2013 Abstract [facility] Medical Group [...] on filedocumented in this encounter Care Teams Daycare Manager Relationship Specialty Start Date End Date Pb Su MD [address] [place], [place] [address] PCP - General 04/26/16 Pb Su MD [address] [place], [place] [address] PCP - General 05/19/15 04/25/16 Pb Su MD [address] [place], [place] [address] PCP - General 12/07/14 05/18/15 Pb Su MD [address] [place], [place] [address] PCP - General 12/05/14 12/06/14 Pb Su MD [address] [place], [place] [address] PCP - General 03/23/14 12/04/14 Pb Su MD [address] [place], [place] [address] PCP - General 03/21/14 03/22/14 Pb Su MD [address] [place] [address] PCP - General 03/16/14 03/20/14 Pb Su MD [address] [place] [address] PCP - General 03/14/14 03/15/14 Pb Su MD [address] [place] [address] PCP - General 03/09/14 03/13/14 Pb Su MD [address] [place], [place] [address] PCP - General 03/02/14 03/08/14 Pb Su MD [address] [place] [address] PCP - General 02/28/14 03/01/14 Pb Su MD [address] [place], [place] [address] PCP - General 02/25/14 02/27/14 Pb Su MD [address] [place], [place] [address] PCP - General 02/23/14 02/24/14 Pb Su MD [address] [place], [place] [address] PCP - General 02/17/14 02/22/14 Pb Su MD [address] [place], [place] [address] PCP - General 11/02/13 02/16/14 documented as of this encounter
--- OUTSIDE RECORDS SUMMARY | 2024-11-15 05:10 | XMS_ITS | Encounter Summary ---
Author Organization [facility] Address [address] [place] [address]. [place], [place] [address] [place] [address] Care Team Providers Care Pan Devulcanizer Name Role Phone Pb Su MD Primary Care Provider [phone] Pb Su MD Primary Care Provider [phone] Encounter Details Date Type Department Care Team (Latest Contact Info) Description 06/27/2015 Abstract [facility] Medical Group Social [...] on filedocumented in this encounter Care Teams Pan Devulcanizer Relationship Specialty Start Date End Date Pb Su MD [address] [place] [address] PCP - General 04/26/16 Pb Su MD [address] [place] [address] PCP - General 05/19/15 04/25/16 documented as of this encounter
--- OUTSIDE RECORDS SUMMARY | 2024-11-15 05:10 | XMS_ITS | Encounter Summary ---
Author Organization [facility] Address [address] [place] [address]. [place], [place] [address] [place] [address] Care Team Providers Care Anode Adjuster Name Role Phone Pb Su MD Primary [...] (Late st Contact Info) Description 02/03/2014 Abstract [facility] Multispecialty Care - [facility] [address] [place] [address] Seun Mak DO [address] [place] [address] Social History Tobacco Use Types Packs/Day Years [...] future should the need arise. EVON/ROSAURA/marian Job [id number] Active Problems 1. Arm numbness left (782.0) [...] 1 TABLET BY MOUTH AT BEDTIME; Therapy: 98Byd5934 to (Evaluate:24Jun2014); Last Rx:37Cox2845 Ordered 2. Claritin 10 MG Oral Tablet; Therapy: (Recorded:62Bbu0070) to Recorded 3. Cyclobenzaprine HCl - 10 MG Oral Tablet; TAKE 1 TABLET 3 TIMES DAILY NEEDED; Therapy: 46Awh5072 to (Evaluate:26Feb2014) Requested for: 39Yhz0988; Last Rx:65Jzv0484 Ordered 4. TraMADol HCl - 50 MG Oral Tablet; TAKE 1 TABLET 3 TIMES DAILY; Therapy: 26Ycb6597 to (Evaluate:06Feb2014); Last Rx:[id number] Ordered Allergies 1. Acetaminophen-Codeine #3 TABS Signatures Electronically signed by : Seun Mak D.O.; Feb 03 2014 4:03PM INCINERATOR PLANT GENERAL SUPERVISOR (Author) Electronically signed by : Seun Mak D.O.; Feb 16 2014 8:23AM INCINERATOR PLANT GENERAL SUPERVISOR (Author) documented in this encounter Plan of Treatment Not on file documented as of this encounter Visit Diagnoses Not on filedocumented in this encounter Care Teams Anode Adjuster Relationship Specialty Start Date End Date Pb Su MD [address] [place], [place] [id number] PCP - General 04/26/16 Pb Su MD [address] [place], [place] [id number] PCP - General 05/19/15 04/25/16 Pb Su MD [address] [place] [address] PCP - General 12/07/14 05/18/15 Pb Su MD [address] [place] [address] PCP - General 12/05/14 12/06/14 Pb Su MD [address] [place] [address] PCP - General 03/23/14 12/04/14 Pb Su MD [address] [place] [address] PCP - General 03/21/14 03/22/14 Pb Su MD [address] [place] [address] PCP - General 03/16/14 03/20/14 Pb Su MD [address] [place] [address] PCP - General 03/14/14 03/15/14 Pb Su MD [address] [place], [place] [address] PCP - General 03/09/14 03/13/14 Pb Su MD [address] [place], [place] [address] PCP - General 03/02/14 03/08/14 Pb Su MD [address] [place] [address] PCP - General 02/28/14 03/01/14 Pb Su MD [address] [place], [place] [address] PCP - General 02/25/14 02/27/14 Pb Su MD [address] [place], [place] [address] PCP - General 02/23/14 02/24/14 Pb Su MD [address] [place], [place] [address] PCP - General 02/17/14 02/22/14 Pb Su MD [address] [place], [place] [address] PCP - General 11/02/13 02/16/14 documented as of this encounter
--- OUTSIDE RECORDS SUMMARY | 2024-11-15 05:10 | XMS_ITS | Encounter Summary ---
Author Organization [facility] Address [address] [place] [address]. [place], [place] [address] [place] [address] Care Team Providers Care Manifold Operator Name Role Phone Pb Su MD Primary Care Provider [phone] Pb Su MD Primary Care Provider Pb Su MD Primary Care Provider [phone] Pb Su MD Primary Care Provider Pb Su MD Primary Care Provider Encounter Details Date Type Department Care Team (Latest Contact Info) Description 03/28/2014 Abstract [facility] Social History Tobacco [...] Gi Aquino, ; Mar 28 2014 4:27PM CAPACITY PLANNING ANALYST (Author) Electronically signed by : Gi Aquino, ; Mar 29 2014 10:39AM CAPACITY PLANNING ANALYST (Author) CITY PLANNING ANALYST documented in this encounter Plan of Treatment Not on file documented as of this encounter Visit Diagnoses Not on filedocumented in this encounter Care Teams Manifold Operator Relationship Specialty Start Date End Date Pb Su MD [address] [place] [address] PCP - General 04/26/16 Pb Su MD [address] [place], [place] [address] PCP - General 05/19/15 04/25/16 Pb Su MD [address] [place], [place] [address] PCP - General 12/07/14 05/18/15 Pb Su MD [address] [place], [place] [address] PCP - General 12/05/14 12/06/14 Pb Su MD [address] [place], [place] [address] PCP - General 03/23/14 12/04/14 documented as of this encounter
--- OUTSIDE RECORDS SUMMARY | 2024-11-15 05:10 | XMS_ITS | Encounter Summary ---
Author Organization [facility] Address [address] [place] [address]. [place] [address] [place] [address] Care Team Providers Care Operations Research Engineer Name Role Phone Pb Su MD Primary Care Provider [phone] Pb Su MD Primary Care Provider [phone] Encounter Details Date Type Department Care Team (Latest Contact Info) Description 12/15/2015 Abstract [facility] Medical [facility] [...] by:Albert Ortega MA Dec 15 2015 9:49AM SALES DEVELOPMENT MANAGER documented in this encounter Plan of Treatment Not on file documented as of this encounter Visit Diagnoses Not on filedocumented in this encounter Care Teams Operations Research Engineer Relationship Specialty Start Date End Date Pb Su MD [address] [place] [address] PCP - General 04/26/16 Pb Su MD [address] [place] [address] PCP - General 05/19/15 04/25/16 documented as of this encounter
--- OUTSIDE RECORDS SUMMARY | 2024-11-15 05:10 | XMS_ITS | Encounter Summary ---
Author Organization [facility] Address [address] [place] [address]. [place], [place] [address] [place] [address] Care Team Providers Care Shot Hole Shooter Name Role Phone Pb Su MD Primary Care Provider Pb Su MD Primary Care Provider Pb Su MD Primary Care Provider [phone] Pb Su MD Primary Care Provider Pb Su MD Primary Care Provider [phone] Encounter Details Date Type Department Care Team (Latest Contact Info) Description 03/30/2014 Abstract [facility] [...] on filedocumented in this encounter Care Teams Shot Hole Shooter Relationship Specialty Start Date End Date Pb Su MD [address] [place], [place] [address] PCP - General 04/26/16 Pb Su MD [address] [place], [place] [address] PCP - General 05/19/15 04/25/16 Pb Su MD [address] [place], [place] [address] PCP - General 12/07/14 05/18/15 Pb Su MD [address] [place], [place] [address] PCP - General 12/05/14 12/06/14 Pb Su MD [address] [place], [place] [address] PCP - General 03/23/14 12/04/14 documented as of this encounter
--- OUTSIDE RECORDS SUMMARY | 2024-11-15 05:10 | XMS_ITS | Encounter Summary ---
Author Organization [facility] Address [address] [place] [address]. [place], [place] [address] [place] [address] Care Team Providers Care Tunnel Heading Inspector Name Role Phone Pb Su MD [...] (Late st Contact Info) Description 01/17/[address] [facility] Family Medicine - [place] [address] [place] [address] Pb Su MD [address] [place] [address] Social History Tobacco Use Types Packs/Day Years [...] - - Pulse 80 01/17/2014 2:09 PM ART PSYCHOTHERAPIST Temperature - - Respiratory Rate - - Oxygen Saturation - - Inhaled Oxygen Concentration - - Weight 100.2 kg (221 lb) 01/17/2014 2:09 PM ART PSYCHOTHERAPIST Height 182.9 cm (6') 01/17/2014 2:09 PM ART PSYCHOTHERAPIST Body Mass Index 29.97 01/17/2014 2:09 PM ART PSYCHOTHERAPIST documented in this encounter Progress Notes * [...] 1 TABLET BY MOUTH AT BEDTIME; Therapy: 77Sco7591 to (Evaluate:16Wsr2198); Last Rx:57Ytb3623 Ordered 2. Claritin 10 MG Oral Tablet; Therapy: (Recorded:42Uwz8930) to Recorded Allergies 1. Acetaminophen-Codeine #3 TABS Vitals Recorded by : Marcial Denisse at 25Zez8339 02:09PM Temperature 98.1 F, Oral Heart Rate [...] calcium in your diet. Status: Complete Done: 35Tfp5815 03:25PM Ordered; For: Osteoarthritis; Ordered By: Pb Su 4. Eat foods that are high in calcium. Status: Complete Done: 31Ehs2129 03:25PM Ordered; For: Osteoarthritis; Ordered By: Pb Su 5. Rest your wrist as much as possible. Status: Complete Done: 56Vfu8719 03:25PM Ordered; For: Osteoarthritis; Ordered By: Pb Su 6. Some eating tips that can help you lose weight. Status: Complete Done: 98Ykm0787 03:25PM Ordered; For: Osteoarthritis; Ordered By: Pb Su 7. Stretch and warm up your muscles during the first 10 minutes , then cool down your muscles for the last 10 minutes of exercise. Status: Complete Done: 67Vqz5089 03:25PM Ordered; For: Osteoarthritis; Ordered By: Pb Su 8. There are many exercise options for seniors. Status: Complete Done: 49Fgu1257 03:25PM Ordered; For: Osteoarthritis; Ordered By: Pb Su 9. We recommend that you get 400 IU of Vitamin D each day. Status: Complete Done: 72Zkz7798 03:25PM Ordered; For: Osteoarthritis; Ordered By: Pb Su 10. We recommend you perform exercises to strengthen and stretch your muscles Status: Complete Done: 22Hfm2120 03:25PM Ordered; For: Osteoarthritis; Ordered By: Pb Su 11. We suggest that you do gentle exercise that does not stress your joints. Status: Complete Done: 40Hhq6870 03:25PM Ordered; For: Osteoarthritis; Ordered By: Pb Su 12. We would like you to start exercises to build muscle strength and keep your joints loose. Status: Complete Done: 00Diw8393 03:25PM Ordered; For: Osteoarthritis; Ordered By: Pb Su 13. Wear shoes that provide good support for your feet. Status: Complete Done: 33Qgu1873 03:25PM Ordered; For: Osteoarthritis; Ordered By: Pb Su 14. You may slowly resume your normal level of activity once you feel better. Status: Complete Done: 66Ylg7120 03:25PM Ordered; For: Osteoarthritis; Ordered By: Pb Su Signatures Electronically signed by : Pb Su M.D.; Jan 17 2014 3:26PM ART PSYCHOTHERAPIST (Author) PSYCHOTHERAPIST documented in this encounter Plan of Treatment Not on file documented as of this encounter Visit Diagnoses Not on filedocumented in this encounter Care Teams Tunnel Heading Inspector Relationship Specialty Start Date End Date Pb Su MD [address] [place], [place] [address] PCP - General 04/26/16 Pb Su MD [address] [place] [address] PCP - General 05/19/15 04/25/16 Pb Su MD [address] [place] [address] PCP - General 12/07/14 05/18/15 Pb Su MD [address] [place] [address] PCP - General 12/05/14 12/06/14 Pb Su MD [address] [place], [place] [address] PCP - General 03/23/14 12/04/14 Pb Su MD [address] [place], [place] [address] PCP - General 03/21/14 03/22/14 Pb Su MD [address] [place] [address] PCP - General 03/16/14 03/20/14 Pb Su MD [address] [place] [address] PCP - General 03/14/14 03/15/14 Pb Su MD [address] [place] [address] PCP - General 03/09/14 03/13/14 Pb Su MD [address] [place] [address] PCP - General 03/02/14 03/08/14 Pb Su MD [address] [place], [place] [address] PCP - General 02/28/14 03/01/14 Pb Su MD [address] [place], [place] [address] PCP - General 02/25/14 02/27/14 Pb Su MD [address] [place], [place] [address] PCP - General 02/23/14 02/24/14 Pb Su MD [address] [place], [place] [address] PCP - General 02/17/14 02/22/14 Pb Su MD [address] [place], [place] [address] PCP - General 11/02/13 02/16/14 documented as of this encounter
--- OUTSIDE RECORDS SUMMARY | 2024-11-15 05:10 | XMS_ITS | Encounter Summary ---
Author Organization [facility] Address [address] [place] [address]. [place] [address] [place] [address] Care Team Providers Care Lubricating Machine Tender Name Role Phone Pb Su MD Primary Care Provider [phone] Pb Su MD Primary Care Provider Pb Su MD Primary Care Provider Encounter Details Date Type Department Care Team (Late st Contact Info) Description 12/26/2014 Abstract [facility] Family Medicine - [place] [address] [place] [address] Pb Su MD [address] [place] [address] Social History Tobacco Use Types Packs/Day Years Used Date Smoking Tobacco: Never Assessed Sex and Gender Information Value Date Recorded Sex Assigned at Not on file Legal Sex Male 7:22 PM CDT Gender Identity Not on file Sexual Orientation Not on file documented as of this encounter Last Filed Vital Signs Vital Sign Reading Time Taken Comments Blood Pressure 120/84 12/26/2014 7:43 AM GROMMET MAN Pulse 64 12/26/2014 7:43 AM GROMMET MAN Temperature - - Respiratory Rate - - Oxygen Saturation - - Inhaled Oxygen Concentration - - Weight 99.3 kg (219 lb) 12/26/2014 7:43 AM GROMMET MAN Height 182.9 cm (6') 12/26/2014 7:43 AM GROMMET MAN Body Mass Index 29.7 12/26/2014 7:43 AM GROMMET MAN documented in this encounter Progress Notes * [...] 1. Claritin 10 MG Oral Tablet; Therapy: (Recorded:60Gbg1091) to Recorded 2. PredniSONE 20 MG Oral Tablet; TAKE 2 TABLETS DAILY; Therapy: 05Dec2014 to (Evaluate:15Dec2014) Requested for: 05Dec2014; Last Rx:05Dec2014 Ordered Allergies 1. Acetaminophen-Codeine #3 TABS Vitals Recorded by : Daphne Harvey at 82Egs9126 07:43AM Temperature 98.4 F Heart Rate 64 [...] Transmission to [facility]; Last Updated By: [email or web address]; 12/26/2014 7:54:55 AM 2. Compr Metabolic Prof ( CMP ) Status: Active Requested for: 26Dec2014 Perform: [facility] Due: 25Jan2015; Ordered; For: Hyperlipidemia; Ordered By: Pb Su 3. Creatine Kinase ( CK ) ( CPK ) Status: Active Requested for: 26Dec2014 Perform: [facility] Due: 25Jan2015; Ordered; For: Hyperlipidemia; Ordered By: Pb Su 4. Lipid Profile Status: Active Requested for: 26Dec2014 Perform: [facility] Due: 25Jan2015; Ordered; For: Hyperlipidemia; Ordered By: Pb Su Obstructive sleep apnea 5. Avoid alcoholic beverages. Status: Complete Done: 27Dec2014 11:56AM Ordered; For: Obstructive sleep apnea; Ordered By: Pb Su 6. Avoid medications and/or triggers that caused your symptoms/problems. Status: Complete Done: 97Ixl7168 11:56AM Ordered; For: Obstructive sleep apnea; Ordered [...] of exercise a week. Status: Complete Done: 04Uth2577 11:56AM Ordered; For: Obstructive sleep apnea; Ordered [...] help you lose weight. Status: Complete Done: 10Nxm9580 11:56AM Ordered; For: Obstructive sleep apnea; Ordered By: Pb Su 13. Some eating tips that can help you lose weight. Status: Complete Done: 86Xpo4294 11:56AM Ordered; For: Obstructive sleep apnea; Ordered By: Pb Su 14. We encourage all of our patients to exercise regularly. 30 minutes of exercise or physical activity five or more days a week is recommended for children and adults. Status: Complete Done: 12Hmy6535 11:56AM Ordered; For: Obstructive sleep apnea; Ordered By: Pb Su 15. We have prescribed nasal CPAP. Status: Complete Done: 85Bsx3823 11:56AM Ordered; For: Obstructive sleep apnea; Ordered By: Pb Su 16. We recommend that you bring your body mass index down to 26. Status: Complete Done: 70Uqa7994 11:56AM Ordered; For: Obstructive sleep apnea; Ordered [...] you achieve your goals. Status: Complete Done: 33Iby8971 11:56AM Ordered; For: Obstructive sleep apnea; Ordered By: Pb Su 18. You need to stop smoking. Though it is not easy, more than half of all adult smokers have quit. We encourage you to write down all the reasons you should quit smoking and set a quit date for yourself. Ask us how we can help. You may also call 2-850-YMTDNOW for free resources and assistance. Status: Complete Done: 69Vme7619 11:56AM Ordered; For: Obstructive sleep apnea; Ordered By: Pb Su 19. Call if: The symptoms are not better in 7 days. Status: Complete Done: 94Eim5310 11:56AM Ordered; For: Obstructive sleep apnea; Ordered By: Pb Su 20. Call if: The symptoms come back after a period of time of being normal. Status: Complete Done: 73Gzw4529 11:56AM Ordered; For: Obstructive sleep apnea; Ordered By: Pb Su 21. Call if: You feel unusually tired. Status: Complete Done: 20Pse7768 11:56AM Ordered; For: Obstructive sleep apnea; Ordered By: Pb Su 22. Call if: You feel your heart is beating too fast. Status: Complete Done: 68Ezd6546 11:56AM Ordered; For: Obstructive sleep apnea; Ordered By: Pb Su 23. Call if: You get a headache that does not go away with your usual treatment. Status: Complete Done: 11Knf7929 11:56AM Ordered; For: Obstructive sleep apnea; Ordered By: Pb Su 24. Call if: You have a dry, hacking cough. Status: Complete Done: 78Ouy7614 11:56AM Ordered; For: Obstructive sleep apnea; Ordered By: Pb Su 25. Call if: You have feelings of extreme sadness and feelings of hopelessness. Status: Complete Done: 29Oud4704 11:56AM Ordered; For: Obstructive sleep apnea; Ordered By: Pb Su 26. Call if: You have frequent headaches. Status: Complete Done: 61Ely9499 11:56AM Ordered; For: Obstructive sleep apnea; Ordered By: Pb Su 27. Call if: You have swelling and puffiness of your lower leg or ankles. Status: Complete Done: 82Gwt9531 11:56AM Ordered; For: Obstructive sleep apnea; Ordered By: Pb Su 28. Call if: Your nose is stuffy or feels plugged. Status: Complete Done: 14Ahc4878 11:56AM Ordered; For: Obstructive sleep apnea; Ordered By: Pb Su 29. Call [phone] if: You experience a new kind of chest pain (angina) or pressure. Status: Complete Done: 67Gbg1999 11:56AM Ordered; For: Obstructive sleep apnea; Ordered By: Pb Su 30. Seek Immediate Medical Attention if: You are thinking about harming yourself or someone else. Status: Complete Done: 45Dkk2422 11:56AM Ordered; For: Obstructive sleep apnea; Ordered By: Pb Su 31. Seek Immediate Medical Attention if: You faint or lose consciousness. Status: Complete Done: 48Nrh8726 11:56AM Ordered; For: Obstructive sleep apnea; Ordered By: Pb Su 32. Seek Immediate Medical Attention if: You feel short of breath even while resting. Status: Complete Done: 09Obz7858 11:56AM Ordered; For: Obstructive sleep apnea; Ordered By: Pb Su 33. Seek Immediate Medical Attention if: Your depression is worse. Status: Complete Done: 48Kte9141 11:56AM Ordered; For: Obstructive sleep apnea; Ordered By: Pb Su 34. Seek Immediate Medical Attention if: Your shortness of breath is getting worse. Status: Complete Done: 51Tev2334 11:56AM Ordered; For: Obstructive sleep apnea; Ordered By: Pb Su Obstructive sleep apnea, Obstructive sleep apnea of adult 35. Sleep Study Referral Outpatient 49 yo male with history DEBBIE/ recent fatigue: -request Authorization for Sleep Specialist Status: Need Information - Financial Authorization Requested for: [id number] Ordered; For: Obstructive sleep apnea, Obstructive sleep apnea of adult; Ordered By: Pb Su Performed: Due: 23Poq1620 Discussion/Summary Summary: 49 yo male with recent fatigue, malaise, complex medical issues and co- morbitities: osteoarthritis, fatigue, HLP, Atrial Fibrillation[sinus],DEBBIE. Performed detailed history,systems review, examination, developed problem list, evaluation/treatment plan! See Care Guide. Sleep Consult placed thru . Lengthy appointment: evaluation, assessment, discussion: exceeding 25 minutes. Signatures Electronically signed by : Pb Su M.D.; Dec 27 2014 11:58AM GROMMET MAN (Author) documented in this encounter Plan of Treatment Not on file documented as of this encounter Visit Diagnoses Not on filedocumented in this encounter Care Teams Lubricating Machine Tender Relationship Specialty Start Date End Date Pb Su MD [address] [place] [address] PCP - General 04/26/16 Pb Su MD [address] [place] [address] PCP - General 05/19/15 04/25/16 Pb Su MD [address] [place] [address] PCP - General 12/07/14 05/18/15 documented as of this encounter
--- OUTSIDE RECORDS SUMMARY | 2024-11-15 05:10 | XMS_ITS | Encounter Summary ---
Author Organization [facility] Address [address] [place] [address]. [place], [place] [address] [place] [address] Care Team Providers Care Supply Chain Development Manager Name Role Phone Pb Su MD Primary Care Provider [phone] Encounter Details Date Type Department Care Team (Late st Contact Info) Description 10/21/2016 Abstract [facility] Family Medicine - [place] [address] [place] [address] Pb Su MD [address] [place] [address] Social History Tobacco Use Types Packs/Day Years Used Date Smoking Tobacco: Never Assessed Sex and Gender Information Value Date Recorded Sex Assigned at Not on file Legal Sex Male 7:22 PM CDT Gender Identity Not on file Sexual Orientation Not on file documented as of this encounter Last Filed Vital Signs Vital Sign Reading Time Taken Comments Blood Pressure 120/64 10/21/2016 10:12 AM FILTER BED PLACER Pulse 67 10/21/2016 10:12 AM FILTER BED PLACER Temperature - - Respiratory Rate - - [...] Tablet; TAKE 1 TABLET DAILY DIRECTED; Therapy: 10Pxy1095 to (Evaluate:75Qoq7762) Requested for: 66Idk7733; Last Rx:28Ucs2773 Ordered Rx By: Pb Su; Dispense: 60 Days ; #:60 Tablet; Refill: 2; For: PMH: History of hyperlipidemia; GAYLE = N; Verified Transmission to [facility]; Last Updated By: Marci Barber; 07/16/2016 2:44:47 PM 2. Claritin 10 MG Oral Tablet; Therapy: (Recorded:66Mdb8603) to Recorded Dispense: 0 Days ; #: [...] 1. CMP / Liver; Status:Active; Requested for:21Oct2016; Perform:[facility]; Due:01Hqt2931;Ordered; For:Hyperlipidemia; Ordered By:Pb Su; 2. Lipid Profile; Status:Active; Requested for:21Oct2016; Perform:[facility]; Due:77Fih2520;Ordered; For:Hyperlipidemia; Ordered By:Pb Su; Lower back pain 3. Schedule Follow up 2 weeks Outpatient Follow-up Status: Hold For - Scheduling Requested for: 21Oct2016 Ordered; For: Lower back pain; Ordered By: Pb Su Performed: Due: 74Ehy3980 4. Begin a walking program. Start with [...] back pain; Ordered By:Pb Su; 20. Call [phone] if: You have any loss of bowel [...] spasm; GAYLE = N; Verified Transmission to [email or web address] # [id number]; Last Updated By: [employer]; 10/21/2016 11:35:26 AM Signatures Electronically signed by : Pb Su M.D.; Oct 21 2016 4:29PM FILTER BED PLACER (Author) documented in this encounter Plan of Treatment Not on file documented as of this encounter Visit Diagnoses Not on filedocumented in this encounter Care Teams Supply Chain Development Manager Relationship Specialty Start Date End Date Pb Su MD [address] [place] [address] PCP - General 04/26/16 documented as of this encounter
--- OUTSIDE RECORDS SUMMARY | 2024-11-15 05:10 | XMS_ITS | Encounter Summary ---
Author Organization [facility] Address [address] [place] [address]. [place], [place] [address] [place] [address] Care Team Providers Care Assistant Media Buyer Name Role Phone Pb Su MD Primary [...] Team (Latest Contact Info) Description 02/02/2014 Abstract [facility] Medical Group Social History [...] filedocumented in this encounter Care Teams Assistant Media Buyer Relationship Specialty Start Date End Date bP Su MD [address] [place], [place] [address] PCP - General 04/26/16 Pb Su MD [address] [place], [place] [id number] PCP - General 05/19/15 04/25/16 Pb Su MD [address] [place], [place] [address] PCP - General 12/07/14 05/18/15 Pb Su MD [address] [place], [place] [address] PCP - General 12/05/14 12/06/14 Pb Su MD [address] [place], [place] [address] PCP - General 03/23/14 12/04/14 Pb Su MD [address] [place], [place] [address] PCP - General 03/21/14 03/22/14 Pb Su MD [address] [place] [address] PCP - General 03/16/14 03/20/14 Pb Su MD [address] [place] [address] PCP - General 03/14/14 03/15/14 Pb Su MD [address] [place] [address] PCP - General 03/09/14 03/13/14 Pb Su MD [address] [place] [address] PCP - General 03/02/14 03/08/14 Pb Su MD [address] [place] [address] PCP - General 02/28/14 03/01/14 Pb Su MD [address] [place], [place] [address] PCP - General 02/25/14 02/27/14 Pb Su MD [address] [place] [address] PCP - General 02/23/14 02/24/14 Pb uS MD [address] [place], [place] [address] PCP - General 02/17/14 02/22/14 Pb Su MD [address] [place], [place] [address] PCP - General 11/02/13 02/16/14 documented as of this encounter
--- OUTSIDE RECORDS SUMMARY | 2024-11-15 05:10 | XMS_ITS | Encounter Summary ---
Author Organization [facility] Address [address] [place] [address]. [place], [place] [address] [place] [address] Care Team Providers Care White Washer Name Role Phone Pb Su MD Primary Care Provider +1 [phone] Encounter Details Date Type Department Care Team (Latest Contact Info) Description 05/01/2016 Abstract [facility] Medical [...] more information on this test, go to http://education.CureLauncher/faq/ TotalTestosteroneLCMSMS Test Performed by [facility], [address] [place] [address] Haresh Duffy M.D., Ph.D., Director of Laboratories , CLIA [id number] TESTOSTERONE,FREE 64.5 Reference range: 35.0 to 155.0 Unit: pg/mL Test Performed by [facility], [address] [place] [address] Haresh Duffy M.D., Ph.D., Director of flo.do , [facility] [id number] documented in this encounter Plan of Treatment Not on file documented as of this encounter Visit Diagnoses Not on filedocumented in this encounter Care Teams White Washer Relationship Specialty Start Date End Date Pb Su MD [address] [place] [address] PCP - General 04/26/16 documented as of this encounter
--- OUTSIDE RECORDS SUMMARY | 2024-11-15 05:10 | XMS_ITS | Encounter Summary ---
Author Organization [facility] Address [address] [place] [address]. [place] [address] [place] [address] Care Team Providers Care Road Engineer Name Role Phone Pb Su MD Primary Care Provider +1- [phone] Pb Su MD Primary Care Provider Pb Su MD Primary Care Provider +1- [phone] Encounter Details Date Type Department Care Team (Latest Contact Info) Description 01/05/2015 Abstract [facility] Medical Group Social History [...] on filedocumented in this encounter Care Teams Road Engineer Relationship Specialty Start Date End Date Pb Su MD [address] [place], [place] [id number] PCP - General 04/26/16 Pb Su MD [address] [place], [place] [address] PCP - General 05/19/15 04/25/16 Pb Su MD [address] [place] [address] PCP - General 12/07/14 05/18/15 documented as of this encounter
--- OUTSIDE RECORDS SUMMARY | 2024-11-15 05:10 | XMS_ITS | Encounter Summary ---
Author Organization [facility] Address [address] [place] [address]. [place], [place] [address] [place] [address] Care Team Providers Care Material Scheduler Name Role Phone Pb Su MD Primary [...] (Late st Contact Info) Description 08/19/2013 Abstract [facility] Medical Group Multispecialty Care - [facility] [address] [place] [address] Seun MakDO [address] [place] [address] Social History Tobacco Use Types Packs/Day Years [...] His prepatellar bursa is asymptomatic. EVON/ROSAURA/mp Job [id number] Active Problems 1. Atrial Fibrillation 427.31 2. [...] Oral Tablet; TAKE 2 TABLETS DAILY; Therapy: [id number] to (Evaluate:14Oct2013) Requested for: 43Jjc6793; Last Rx:[id number] Allergies 1. Acetaminophen-Codeine #3 TABS Vitals 18Yap1733 03:06PM Bp not recorded Unable to obtain BMI Calculated 29.94 BSA Calculated 2.22 Height 6 ft Weight 221 lb Assessment 1. Joint Pain, Localized In The Knee 719.46 2. Joint Pain In The Right Knee 719.46 Signatures Electronically signed by : Seun Mak D.O.; Aug 19 2013 6:12PM (Author) Electronically signed by : Seun Mak D.O.; Aug 23 2013 6:32PM (Author) ICE OBSERVER documented in this encounter Plan of Treatment Not on file documented as of this encounter Visit Diagnoses Not on filedocumented in this encounter Care Teams Material Scheduler Relationship Specialty Start Date End Date Pb Su MD [address] [place] [address] PCP - General 04/26/16 Pb Su MD [address] [place], [place] [address] PCP - General 05/19/15 04/25/16 Pb Su MD [address] [place] [address] PCP - General 12/07/14 05/18/15 Pb Su MD [address] [place], [place] [address] PCP - General 12/05/14 12/06/14 Pb Su MD [address] [place] [address] PCP - General 03/23/14 12/04/14 Pb Su MD [address] [place] [address] PCP - General 03/21/14 03/22/14 Pb Su MD [address] [place], [place] [address] PCP - General 03/16/14 03/20/14 Pb Su MD [address] [place] [address] PCP - General 03/14/14 03/15/14 Pb Su MD [address] [place] [address] PCP - General 03/09/14 03/13/14 Pb Su MD [address] [place] [address] PCP - General 03/02/14 03/08/14 Pb Su MD [address] [place] [address] PCP - General 02/28/14 03/01/14 Pb Su MD [address] [place], [place] [address] PCP - General 02/25/14 02/27/14 Pb Su MD [address] [place], [place] [address] PCP - General 02/23/14 02/24/14 Pb Su MD [address] [place], [place] [address] PCP - General 02/17/14 02/22/14 Pb Su MD [address] [place] [address] PCP - General 11/02/13 02/16/14 Pb Su MD [address] [place], [place] [address] PCP - General 09/30/13 11/01/13 Pb Su MD [address] [place], [place] [address] PCP - General 06/10/13 09/29/13 documented as of this encounter
--- OUTSIDE RECORDS SUMMARY | 2024-11-15 05:10 | XMS_ITS | Encounter Summary ---
Author Organization [facility] Address [address] [place] [address]. [place], [place] [address] [place] [address] Care Team Providers Care Director Of Architecture Name Role Phone Pb Su MD Primary Care Provider +1 [phone] Encounter Details Date Type Department Care Team (Latest Contact Info) Description 06/03/2016 Abstract [facility] Medical Group Social History Tobacco [...] in this encounter Care Teams Director Of Architecture Relationship Specialty Start Date End Date Pb Su MD [address] [place] [address] PCP - General 04/26/16 documented as of this encounter
--- OUTSIDE RECORDS SUMMARY | 2024-11-15 05:10 | XMS_ITS | Encounter Summary ---
Author Organization [facility] Address [address] [place] [address]. [place], [place] [address] [place] [address] Care Team Providers Care Pay Agent Name Role Phone Pb Su MD Primary Care Provider +1- [phone] Pb Su MD Primary Care Provider Pb Su MD Primary Care Provider +1- [phone] Encounter Details Date Type Department Care Team (Latest Contact Info) Description 12/07/2014 Abstract [facility] Medical Group Social [...] Metabolic Prof ( CMP ) 07Dec2014 07:30AM bP Su Test Name Result Flag Reference Sodium [...] on filedocumented in this encounter Care Teams Pay Agent Relationship Specialty Start Date End Date Pb Su MD [address] [place], [place] [address] PCP - General 04/26/16 Pb Su MD [address] [place], [place] [address] PCP - General 05/19/15 04/25/16 Pb Su MD [address] [place], [place] [address] PCP - General 12/07/14 05/18/15 documented as of this encounter
--- OUTSIDE RECORDS SUMMARY | 2024-11-15 05:10 | XMS_ITS | Encounter Summary ---
Author Organization [facility] Address [address] [place] [address]. [place], [place] [address] [place] [address] Care Team Providers Care Senior Financial Consultant Name Role Phone Pb Su MD Primary Care Provider [phone] Pb Su MD Primary Care Provider Pb [...] (Late st Contact Info) Description 09/30/2013 Abstract [facility] Medical Group Family Medicine - [address] [place] [address] Pb Su MD [address] [place] [address] Social History Tobacco Use Types [...] Comments Blood Pressure 102/68 09/30/2013 7:51 AM CNC SERVICE ENGINEER Pulse 60 09/30/2013 7:51 AM CNC SERVICE ENGINEER Temperature - - Respiratory Rate - - Oxygen Saturation - - Inhaled Oxygen Concentration - - Weight 102.1 kg (225 lb) 09/30/2013 7:51 AM CNC SERVICE ENGINEER Height - - Body Mass Index 30.52 08/19/2013 3:06 PM CDT documented in this encounter Progress Notes * Pb Su MD - 09/30/2013 3:30 PM CST Verified Results XR HAND MINIMUM 3 VIEW RT ( Routine ) 30Sep2013 08:57AM Pb Su Test Name Result Flag Reference AVA CEDILLO JR ORDERING MD: PB SU MD ACCT: [id number] : 1965 PT TYPE: REG CLI SEX: M ORD SITE: [facility] OUTPT IMAGING STUDY DATE REPORT # PROCEDURE CODE PROCEDURE 09/30/13 [id number] XR HAND MINIMUM 3 VIEW RT EXTORDERID [id number] ACCESSION NUMBER [id number] CHART DOCUMENT IMPRESSION: NO ACUTE OSSEOUS ABNORMALITIES. [...] M.D. 09/30/2013 10:50 KEL HENDRICKSON M.D. A #[id number] A/MATILDE CC: PB SU M.D. Radiology image is available. Click on Image Link above. XR HAND MINIMUM 3 VIEW LT ( Routine ) 30Sep2013 08:56AM Pb Su Test Name Result Flag Reference AVA CEDILLO JR MD: PB SU MD ACCT: [id number] : 1965 PT TYPE: REG CLI SEX: M ORD SITE: [facility] OUT IMAGING STUDY DATE REPORT # PROCEDURE CODE PROCEDURE 09/30/13 [id number] XR HAND MINIMUM 3 VIEW LT EXTORDERID [id number] ACCESSION NUMBER [id number] CHART DOCUMENT IMPRESSION: NO ACUTE OSSEOUS ABNORMALITIES. NO SIGNIFICANT FEATURES OF ARTHRITIS. HISTORY: PAIN IN BOTH HANDS X3 WEEKS. HISTORY OF ARTHRITIS. THREE VIEWS LEFT HAND FINDINGS: NO ACUTE FRACTURE OR DISLOCATION. JOINT SPACES ARE PRESERVED. NO DESTRUCTIVE OSSEOUS, LYTIC, OR SCLEROTIC LESION. NO RADIOPAQUE FOREIGN BODIES. ELECTRONICALLY SIGNED BY: KEL HENDRICKSON M.D. 09/30/2013 10:50 KEL HENDRICKSON M.D. A #[id number] A/MA CC: PB SU M.D. Radiology image is available. Click on Image Link above. SERVICE ENGINEER * Pb Su MD - 09/30/2013 7:30 AM CST Reason For Visit Acute Visit Chief Complaint Here today for bilateral hand pain. Pain level is a 5. History of Present Illness The patient is being seen for follow-up of a hand problem affecting both hands. The patient is ambidextrous. 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 The patient is currently able to [...] 1 TABLET BY MOUTH AT BEDTIME; Therapy: 28Gea3154 to (Evaluate:24Jun2014); Last Rx:[id number] 2. Claritin 10 MG Oral Tablet; Therapy: (Recorded:29Jun2013) to 3. Nabumetone 500 MG Oral Tablet; TAKE 2 TABLETS DAILY; Therapy: 86Ynv5413 to (Evaluate:14Oct2013) Requested for: 02Xfj0238; Last Rx:[id number] Allergies 1. Acetaminophen-Codeine #3 TABS Vitals 30Sep2013 [...] CEDILLO JR MD: PB SU MD ACCT: [id number] : 1965 PT TYPE: REG CLI SEX: M ORD SITE: [facility] IMAGING STUDY DATE REPORT # PROCEDURE CODE PROCEDURE 09/30/13 [id number] XR HAND MINIMUM 3 VIEW LT EXTORDERID [id number] ACCESSION NUMBER [id number] CHART DOCUMENT IMPRESSION: NO ACUTE OSSEOUS ABNORMALITIES. NO SIGNIFICANT FEATURES OF ARTHRITIS. HISTORY: PAIN IN BOTH HANDS X3 WEEKS. HISTORY OF ARTHRITIS. THREE VIEWS LEFT HAND FINDINGS: NO ACUTE FRACTURE OR DISLOCATION. JOINT SPACES ARE PRESERVED. NO DESTRUCTIVE OSSEOUS, LYTIC, OR SCLEROTIC LESION. NO RADIOPAQUE FOREIGN BODIES. ELECTRONICALLY SIGNED BY: KEL HENDRICKSON M.D. 09/30/2013 10:50 KEL HENDRICKSON M.D. A #[id number] A/MATILDE CC: PB SU M.D. Radiology image is available. Click on Image Link above. XR HAND MINIMUM 3 VIEW RT ( Routine ) 30Sep2013 08:42AM Pb Su Test Name Result Flag Reference NGUYENAVA RYAN ALEX MD: PB SU MD ACCT: [id number] : 1965 PT TYPE: REG CLI SEX: M ORD SITE: [facility] OUTPT IMAGING STUDY DATE REPORT # PROCEDURE CODE PROCEDURE 09/30/13 [id number] XR HAND MINIMUM 3 VIEW RT EXTORDERID [id number] ACCESSION NUMBER [id number] CHART DOCUMENT IMPRESSION: NO ACUTE OSSEOUS ABNORMALITIES. [...] M.D. 09/30/2013 10:50 KEL HENDRICKSON M.D. A #[id number] Latisha/MATILDE CC: PB SU M.D. Radiology image is available. Click on Image Link above. plane films: mild degenerative changes Assessment 1. Osteoarthritis 715.90 2. Hyperlipidemia 272.4 3. Fatigue 780.79 4. Lower Back Pain 724.2 Pain In The Hands 729.5 Plan 1. XR HAND 2 VIEW LT Requested for: 30Sep2013 Ordered; For: Osteoarthritis (715.90); Ordered By: Pb Su Perform: . [facility] [place] [facility] Order Comments: increasing hand/finger pain/stiffness: osteoarthritis Due: 07Oct2013 2. XR HAND 2 VIEW RT Requested for: 30Sep2013 Ordered; For: Osteoarthritis (715.90); Ordered By: Pb Su Perform: . [facility] [place] [facility] Due: 07Oct2013 3. Call if: The [...] pain> PIP,DIP >Joints! Request OT services at [facility] for eval and treatment! Due: 14Oct2013 [...] advised to be evaluat ed by an coat checker and a dentist. Advice and education were given regarding nutrition, aerobic exercise, weight bearing exercise, calcium supplements, vitamin D supplements, sunscreen use and seat belt use. Patient discussion: discussed with the patient. Signatures Electronically signed by : Pb Su M.D.; Oct 03 2013 11:06AM (Author) SERVICE ENGINEER documented in this encounter Plan of Treatment Not on file documented as of this encounter Procedures Procedure Name Priority Date/Time Associated Diagnosis Comments COMPREHENSIVE METABOLIC PANEL Routine 11/02/2013 9:55 AM CNC SERVICE ENGINEER LIPID PANEL Routine 11/02/2013 9:55 AM CNC SERVICE ENGINEER CK (CPK) Routine 11/02/2013 9:55 AM CNC SERVICE ENGINEER documented in this encounter Results * CK (CPK) (11/02/2013 9:55 AM CNC SERVICE ENGINEER) CPK 140 39 - 308 IU/L [facility] TO EPIC CONVERSION 11/02/2013 9:55 AM CNC SERVICE ENGINEER 11/02/2013 9:55 AM CNC SERVICE ENGINEER Narrative [facility] TO EPIC CONVERSION - 11/02/2013 4:43 PM CNC SERVICE ENGINEER Result Communication: Call patient with results us Pb Su MD LABORATORY Final Resul t [facility] TO EPIC CONVERSION * (ABNORMAL) LIPID PANEL (11/02/2013 9:55 AM CNC SERVICE ENGINEER) CHOLESTEROL 190 <200 mg/dL [facility] TO EPIC [...] [facility] TO EPIC CONVERSION 11/02/2013 9:55 AM CNC SERVICE ENGINEER 11/02/2013 9:55 AM CNC SERVICE ENGINEER Narrative [facility] TO EPIC CONVERSION - 11/02/2013 4:43 PM CNC SERVICE ENGINEER Result Communication: Call patient with results us Pb Su MD LABORATORY Final Resul t [facility] TO EPIC CONVERSION * COMPREHENSIVE METABOLIC PANEL (11/02/2013 9:55 AM CNC SERVICE ENGINEER) SODIUM S/P/B 140 136 - 145 mmol/L [...] [facility] TO EPIC CONVERSION 11/02/2013 9:55 AM CNC SERVICE ENGINEER 11/02/2013 9:55 AM CNC SERVICE ENGINEER Narrative [facility] TO EPIC CONVERSION - 11/02/2013 4:43 PM CNC SERVICE ENGINEER Result Communication: Call patient with results us Pb Su MD LABORATORY Final Resul t [facility] TO EPIC CONVERSION documented in this encounter Visit Diagnoses Not on filedocumented in this encounter Care Teams Senior Financial Consultant Relationship Specialty Start Date End Date Pb Su MD [address] [place], [place] [address] PCP - General 04/26/16 Pb Su MD [address] [place], [place] [address] PCP - General 05/19/15 04/25/16 Pb Su MD [address] [place], [place] [address] PCP - General 12/07/14 05/18/15 Pb Su MD [address] [place], [place] [address] PCP - General 12/05/14 12/06/14 Pb Su MD [address] [place], [place] [address] PCP - General 03/23/14 12/04/14 Pb Su MD [address] [place], [place] [address] PCP - General 03/21/14 03/22/14 Pb Su MD [address] [place] [address] PCP - General 03/16/14 03/20/14 Pb Su MD [address] [place], [place] [address] PCP - General 03/14/14 03/15/14 Pb Su MD [address] [place], [place] [address] PCP - General 03/09/14 03/13/14 Pb Su MD [address] [place], [place] [address] PCP - General 03/02/14 03/08/14 Pb Su MD [address] [place], [place] [address] PCP - General 02/28/14 03/01/14 Pb Su MD [address] [place], [place] [address] PCP - General 02/25/14 02/27/14 Pb Su MD [address] [place], [place] [address] PCP - General 02/23/14 02/24/14 Pb Su MD [address] [place] [address] PCP - General 02/17/14 02/22/14 Pb Su MD [address] [place], [place] [address] PCP - General 11/02/13 02/16/14 Pb Su MD [address] [place], [place] [address] PCP - General 09/30/13 11/01/13 documented as of this encounter
--- OUTSIDE RECORDS SUMMARY | 2024-11-15 05:10 | XMS_ITS | Encounter Summary ---
Author Organization [facility] Address [address] [place] [address]. [place], [place] [address] [place] [address] Care Team Providers Care Commissary Production Supervisor Name Role Phone Pb Su MD Primary Care Provider [phone] Pb Su MD Primary Care Provider [phone] Encounter Details Date Type Department Care Team (Latest Contact Info) Description 05/23/2015 Abstract [facility] Medical Group Aleshia Guaman MD [address] [place] [address] Social History Tobacco Use Types Packs/Day Years Used Date Smoking Tobacco: Never Assessed Sex and Gender Information Value Date Recorded Sex Assigned at Not on file Legal Sex Male 7:22 PM CDT Gender Identity Not on file Sexual Orientation Not on file documented as of this encounter Procedure Notes * Aleshia Guaman MD - 05/20/2015 10:58 AM CDT [place] [address] Patient: AVA CEDILLO [facility] Rec#: [id number] Birthdate: 1965 Admit/Svce Date: 05/19/2015 Disch Date: Attending Md: PB SU MD CHART DOCUMENT Spirometry: Based upon FEV1 to FVC ratio, there is no significant obstruction. Lung Volumes: Lung volumes are within normal limits. No restriction. Nonspecific reduction and residual volume. DLCO: Is normal. Electronically Signed By: ALESHIA GUAMAN M.D. 05/30/2015 04:00 P ALESHIA GUAMAN M.D. A #[id number] A/corine cc: PB SU M.D. documented in this encounter Plan of Treatment Not on file documented as of this encounter Visit Diagnoses Not on filedocumented in this encounter Care Teams Commissary Production Supervisor Relationship Specialty Start Date End Date Pb Su MD [address] '[place] [address] PCP - General 04/26/16 Pb Su MD [address] [place] [address] PCP - General 05/19/15 04/25/16 documented as of this encounter
--- OUTSIDE RECORDS SUMMARY | 2024-11-15 05:10 | XMS_ITS | Encounter Summary ---
Author Organization [facility] Address [address] [place] [address]. [place], [place] [address] [place] [address] Care Team Providers Care High School Academic Coach Name Role Phone Pb Su MD Primary [...] Team (Latest Contact Info) Description 11/03/2013 Abstract [facility] Medical Group Social History Tobacco Use [...] Kinase ( CK ) ( CPK ) 43Wiu5330 09:55AM Pb Su Test Name Result Flag Reference Creatine Kinase (CK) 140 IU/L 39-308 Lipid Profile 18Mlk1088 09:55AM Pb Su Test Name Result Flag [...] --- HDL <40 --- LDL >=160 >=130 VOLTAGE TECHNICIAN documented in this encounter Plan of Treatment Not on file documented as of this encounter Visit Diagnoses Not on filedocumented in this encounter Care Teams High School Academic Coach Relationship Specialty Start Date End Date Pb Su MD [address] [place] [address] PCP - General 04/26/16 Pb Su MD [address] [place], [place] [address] PCP - General 05/19/15 04/25/16 Pb Su MD [address] [place], [place] [address] PCP - General 12/07/14 05/18/15 Pb Su MD [address] [place], [place] [address] PCP - General 12/05/14 12/06/14 Pb Su MD [address] [place] [address] PCP - General 03/23/14 12/04/14 Pb Su MD [address] [place] [address] PCP - General 03/21/14 03/22/14 Pb Su MD [address] [place] [address] PCP - General 03/16/14 03/20/14 Pb Su MD [address] [place] [address] PCP - General 03/14/14 03/15/14 Pb Su MD [address] [place] [address] PCP - General 03/09/14 03/13/14 Pb Su MD [address] [place], [place] [address] PCP - General 03/02/14 03/08/14 Pb Su MD [address] [place], [place] [address] PCP - General 02/28/14 03/01/14 Pb Su MD [address] [place] [address] PCP - General 02/25/14 02/27/14 Pb Su MD [address] [place] [address] PCP - General 02/23/14 02/24/14 Pb Su MD [address] [place] [address] PCP - General 02/17/14 02/22/14 Pb Su MD [address] [place] [address] PCP - General 11/02/13 02/16/14 documented as of this encounter
--- OUTSIDE RECORDS SUMMARY | 2024-11-15 05:10 | XMS_ITS | Encounter Summary ---
Author Organization [facility] Address [address] [place] [address]. [place], [place] [address] [place] [address] Care Team Providers Care Garment Manufacturer Name Role Phone Pb Su MD Primary Care Provider [phone]- [phone] Pb Su MD Primary Care Provider [phone] Pb Su MD Primary Care Provider Pb Su MD Primary Care Provider Encounter Details Date Type Department Care Team (Latest Contact Info) Description 12/06/2014 Abstract [facility] Medical Group Social [...] CEDILLO ORDERING MD: PB SU MD ACCT: [id number] ADMIT/SERVICE DATE: 12/05/14 DISCHARGE DATE: : 1965 PT TYPE: REG CLI SEX: M ORD SITE: [facility] IMAGING STUDY DATE REPORT # PROCEDURE CODE PROCEDURE 12/05/14 [id number] CXR2V XR CHEST 2 VIEW EXTORDERID [id number] ACCESSION NUMBER [id number] CHART DOCUMENT IMPRESSION: MILD BRONCHITIS AND POSSIBLE [...] 12/06/2014 12:36 P ROLANDA LANCASTER M.D. P #[id number] P/MA CC: PB SU M.D. documented in this encounter Plan of Treatment Not on file documented as of this encounter Visit Diagnoses Not on filedocumented in this encounter Care Teams Garment Manufacturer Relationship Specialty Start Date End Date Pb Su MD [address] [place] [address] PCP - General 04/26/16 Pb Su MD [address] [place], [place] [address] PCP - General 05/19/15 04/25/16 Pb Su MD [address] [place] [address] PCP - General 12/07/14 05/18/15 Pb Su MD [address] [facility] [address] [address] [place] [address] PCP - General 12/05/14 12/06/14 documented as of this encounter
--- OUTSIDE RECORDS SUMMARY | 2024-11-15 05:10 | XMS_ITS | Encounter Summary ---
Author Organization [facility] Address [address] [place] [address]. [place], [place] [address] [place] [address] Care Team Providers Care Die Assembler Name Role Phone Pb Su MD [...] (Late st Contact Info) Description 11/02/2013 Abstract [facility] [address] [place] [address] Pb Su MD [address] [place] [address] Social History Tobacco Use Types Packs/Day Years [...] hyperlipidemia documented in this encounter Care Teams Die Assembler Relationship Specialty Start Date End Date Pb Su MD [address] [place], [place] [address] PCP - General 04/26/16 Pb Su MD [address] [place], [place] [address] PCP - General 05/19/15 04/25/16 Pb Su MD [address] [place], [place] [address]679 PCP - General 12/07/14 05/18/15 Pb Su MD [address] [place], [place] [address]69 PCP - General 12/05/14 12/06/14 Pb Su MD [address] [place], [place] [address] PCP - General 03/23/14 12/04/14 Pb Su MD [address] [place] [address] PCP - General 03/21/14 03/22/14 Pb Su MD [address] [place] [address] PCP - General 03/16/14 03/20/14 Pb Su MD [address] [place], [place] [address]169 PCP - General 03/14/14 03/15/14 Pb Su MD [address] [place], [place] 15[address] PCP - General 03/09/14 03/13/14 Pb Su MD [address] [place], [place] [address]6749 PCP - General 03/02/14 03/08/14 Pb Su MD [address] [place], [place] [address]189 PCP - General 02/28/14 03/01/14 Pb Su MD [address] [place], [place] [address] PCP - General 02/25/14 02/27/14 Pb Su MD [address] [place] [address] PCP - General 02/23/14 02/24/14 Pb Su MD [address] [place], [place] [address]689 PCP - General 02/17/14 02/22/14 Pb Su MD [address] [place], [place] [address] PCP - General 11/02/13 02/16/14 documented as of this encounter
--- OUTSIDE RECORDS SUMMARY | 2024-11-15 05:10 | XMS_ITS | Encounter Summary ---
Author Organization [facility] Address [address] [place] [address]. [place] [address] [place] [address] Care Team Providers Care K 12 School Principal Name Role Phone Pb Su MD Primary Care Provider [phone] Encounter Details Date Type Department Care Team (Late st Contact Info) Description 04/26/2016 Abstract [facility] [address] [place], [place] [phone] Pb Su MD [address] [place], [place] [address] Social History Tobacco Use Types Packs/Day Years [...] - 100 NG/ML 04/29/2016 8:45 PM CDT [facility] Comment: SUPPLEMENTING WITH VITAMIN D2 MAY RESULT IN FALSELY LOW RESULTS, CLINICAL CORRELATION NEEDED. ? INTERPRETATION ? DEFICIENT ??<20 ?INSUFFICIENT 20-30 ?SUFFICIENT 30-100 POTENTIAL INTOXICATION ??>100 TESTING [place] [address] 04/26/2016 10:1 3 AM CDT 04/26/2016 11:40 AM CDT us Generic Conversion Md [facility] Final R [facility] Performing Organization Address [facility] de Phone Number [facility] [address] [place] [address], [place] [phone] * TSH W/REFLEX (SNS) (04/26/2016 10:13 AM CDT) TSH 1.72 0.27 - 4.20 mIU/mL 04/26/2016 3:22 PM CDT [facility] Comment:FREE T4 NOT INDICATE D SERUM OR PLASMA SPECIMEN / Unknown 04/26/2016 10:13 AM CDT 04/26/2016 11:40 AM CDT us Generic Conversion Md [facility] Final R esult Performing Organization Address City/[facility]/ZIP Co de Phone Number [facility] [address] [place] [address], [place] [phone] * TESTOSTERONE, FREE & TOTAL (04/26/2016 10:13 AM CDT) TESTOSTERONE TOTAL 442 250 - 1,100 ng/dL 05/01/2016 10:32 AM CDT [facility] Comment: For more information on this test, go to http://education.MycooN/faq/ TotalTestosteroneLCMSMS Test Performed by [facility], [place], [address] [place] [address] Haresh Duffy M.D., Ph.D., Director of Laboratories , CLIA [id number] TESTOSTERONE FREE 64.5 35.0 - 155.0 pg/mL 05/01/2016 6:21 PM CDT [facility] Comment: Test Performed by [facility], [place], [address] [place] [address] Haresh Duffy M.D., Ph.D., Director of Laboratories , CLIA [id number] SERUM SPECIMEN / Unknown 04/26/2016 10:13 AM CDT 04/26/2016 11:40 AM CDT us Generic Conversion Md [facility] Final R esult [facility] [place] [address], * PROSTATE SPECIFIC ANTIGEN,SCREENING (04/26/2016 10:13 AM CDT) PSA 1.22 <4.0 ng/mL 04/26/2016 3:22 PM CDT [facility] Comment: TEST WAS PERFORMED USING THE YADI METHOD. ??PSA VALUES OBTAINED WITH OTHER ASSAY METHODS OR KITS CANNOT BE USED INTERCHANGEABLY WITH RESULTS OBTAINED BY THE YADI METHOD. SERUM SPECIMEN / Unknown 04/26/2016 10:13 AM CDT 04/26/2016 11:40 AM CDT us Generic Conversion Md [facility] Final R esult [facility] [address] [place] [address], * (ABNORMAL) LIPID PANEL (04/26/2016 10:13 AM CDT) LIPID INTERPRETATION 04/26/2016 3:10 PM CDT [facility] Comment: NIH CONCENSUS REPORT RECOMMENDATIONS: ?ADULT [...] 0.0 - 4.5 04/26/2016 3:10 PM CDT [facility] CHOLESTEROL 223(H) <200 mg/dL 04/26/2016 3:10 PM CDT [facility] Comment: NOTE: Acetaminophen, N Acetyl p benzoquinone imine (NAPQI), N acetylcysteine (NAC), Metamizole, 4 Aminoantipyrine (4 AAP) and 4 Methylamino antipyrine (4 MAP) at high concentrations can cause falsely low results on Lactate, Uric Acid, Cholesterol, Triglyceride, HDL, and Direct LDL. HDL 39(L) >59 mg/dL 04/26/2016 3:10 PM CDT [facility] DIRECT LDL 151(H) <100 mg/dL 04/26/2016 3:10 PM T [facility] NON HDL CHOLESTEROL 184(H) <130 mg/dL 04/26/2016 3:10 PM T [facility] Comment: NOTE: WHEN THE TRIGLYCERIDES ARE >200 mg/dL, NON HDL C IS A SECONDARY TARGET OF THERAPY, WITH A GOAL 30 mg/dL HIGHER THAN THE IDENTIFIED LDL C GOAL. TRIGLYCERIDES 167(H) <150 mg/dL 04/26/2016 3:10 PM CDT [facility] VLDL CALCULATION 33 5 - 55 mg/dL 04/26/2016 3:10 PM T [facility] 04/26/2016 10:1 3 AM CDT 04/26/2016 11:40 AM CDT us Generic Conversion Md [facility] Final R esult [facility] [address] [place] [address], [place] [phone] * (ABNORMAL) CBC, AUTO, NO DIFF (04/26/2016 10:13 AM CDT) WBC 4.2(L) 4.8 - 10.8 X10'3/uL 04/26/2016 2:23 PM CDT [facility] RBC 4.97 4.70 - 6.10 X10'6/uL 04/26/2016 2:23 PM CDT [facility] HGB 14.7 14.0 - 18.0 g/dL 04/26/2016 2:23 PM CDT [facility] HCT 41.6(L) 43.0 - 54.0 % 04/26/2016 2:23 PM CDT [facility] MCV 83.7 80.0 - 94.0 fL 04/26/2016 2:23 PM CDT [facility] MCH 29.6 27.0 - 31.0 pg 04/26/2016 2:23 PM CDT [facility] MCHC 35.3 32.0 - 36.0 g/dL 04/26/2016 2:23 PM CDT [facility] RDW 12.2 11.5 - 14.5 % 04/26/2016 2:23 PM CDT [facility] PLT 276 130 - 400 X10'3/uL 04/26/2016 2:23 PM CDT [facility] MPV 11.3 9.3 - 12.2 fL 04/26/2016 2:23 PM CDT [facility] 04/26/2016 10:1 3 AM CDT 04/26/2016 11:40 AM CDT us Generic Conversion Md [facility] Final R esult [facility] [address] [place] [address], * COMPREHENSIVE METABOLIC PANEL (04/26/2016 10:13 AM CDT) [facility] Signature GLUCOSE 91 70 - 99 mg/dL 04/26/2016 3:10 PM CDT [facility] BUN 14 8 - 23 mg/dL 04/26/2016 3:10 PM CDT [facility] CREATININE S/P/B 1.06 0.70 - 1.20 mg/dL 04/26/2016 3:10 PM CDT [facility] SODIUM S/P/B 139 136 - 145 mmol/L 04/26/2016 3:10 PM CDT [facility] POTASSIUM S/P/B 4.3 3.5 - 5.1 mmol/L 04/26/2016 3:10 PM CDT [facility] CHLORIDE S/P/B 102 98 - 107 mmol/L 04/26/2016 3:10 PM CDT [facility] CO2 25 22 - 29 mmol/L 04/26/2016 3:10 PM CDT [facility] BILIRUBIN TOTAL S/P/B 0.6 0.2 - 1.2 mg/dL 04/26/2016 3:10 PM CDT [facility] CALCIUM S/P/B 9.5 8.6 - 10.2 mg/dL 04/26/2016 3:10 PM CDT [facility] ALKALINE PHOSPHATASE S/P/B 67 40 - 129 IU/L 04/26/2016 3:10 PM CDT [facility] AST 27 0 - 40 IU/L 04/26/2016 3:10 PM CDT [facility] TOTAL PROTEIN S/P/B 6.9 6.4 - 8.3 g/dL 04/26/2016 3:10 PM CDT [facility] ALBUMIN S/P/B 4.5 3.5 - 5.2 g/dL 04/26/2016 3:10 PM CDT [facility] ALT 22 0 - 41 IU/L 04/26/2016 3:10 PM CDT [facility] GLOBULIN 2.4 2.3 - 3.6 g/dL 04/26/2016 3:10 PM CDT [facility] A/G RATIO 1.9 1.0 - 2.0 04/26/2016 3:10 PM CDT [facility] ANION GAP 16 8 - 20 04/26/2016 3:10 PM CDT [facility] EGFR NON-AFR. AMER. >60 >60 mL/min/1.7 [facility] 04/26/2016 3:10 PM CDT [facility] EGFR AFR. AMER. >60 >60 mL/min/1.7 [facility] 04/26/2016 3:10 PM CDT [facility] Comment: NOTE: eGFR is not calculated for patients <18 years of age. This is an estimated GFR (CKD EPI) and should not be used for calculating drug doses. 04/26/2016 10:1 3 AM CDT 04/26/2016 11:40 AM CDT us Generic Conversion Md [facility] Final R esult [facility] [address] [place] [address], documented in this encounter Visit Diagnoses Diagnosis Atrial fibrillation (CMS/HCC HHS/HCC) Atrial fibrillation documented in this encounter Care Teams K 12 School Principal Relationship Specialty Start Date End Date Pb Su MD [address] [place] [phone] (Work) PCP - General 04/26/16 documented as of this encounter
--- OUTSIDE RECORDS SUMMARY | 2024-11-15 05:10 | XMS_ITS | Encounter Summary ---
Author Organization [facility] Address [address] [place] [address]. [place], [place] [address] [place] [address] Care Team Providers Care Master Ocean Name Role Phone Pb Su MD Primary [...] Pb Su MD Primary Care Provider [phone] Encounter Details Date Type Department Care Team (Late st Contact Info) Description 06/29/2013 Abstract [facility] Medical Group Family Medicine - [place] [address] [place] [phone] Pb Su MD [address] [place] [address] Social History Tobacco Use Types Packs/Day Years [...] is . 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 The patient has never smoked cigarettes and [...] history: previous back injury. 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 The patient is currently able to do [...] 1. Claritin 10 MG Oral Tablet; Therapy: (Recorded:[id number]) to Recorded; Dispense: 0 Days ; #: Sufficient TABS; Refill: 0; Record; Last Updated By: Denisse Ceja Allergies 1. Acetaminophen-Codeine #3 TABS Vitals 90Rsn2044 07:38AM Temperature 98 F, Oral Heart Rate [...] advised to be evaluat ed by an shower maid and a dentist. Advice and education were [...] Su M.D.; Jul 04 2013 10:14AM (Author) [employer] DAT[employer] documented in this encounter Plan of Treatment Not on file documented as of this encounter Visit Diagnoses Not on filedocumented in this encounter Care Teams Master Ocean Relationship Specialty Start Date End Date Pb Su MD [address] [place] [address] PCP - General 04/26/16 Pb Su MD [address] [place] [address] PCP - General 05/19/15 04/25/16 Pb Su MD [address] [place] [address] PCP - General 12/07/14 05/18/15 Pb Su MD [address] [place] [address] PCP - General 12/05/14 12/06/14 Pb Su MD [address] [place], [place] 3[address] PCP - General 03/23/14 12/04/14 Pb Su MD [address] [place] [address] PCP - General 03/21/14 03/22/14 Pb Su MD [address] [place], [place] [address] PCP - General 03/16/14 03/20/14 Pb Su MD [address] [place] [address] PCP - General 03/14/14 03/15/14 Pb Su MD [address] [place], [place] [address] PCP - General 03/09/14 03/13/14 Pb Su MD [address] [place], [place] [address]69 PCP - General 03/02/14 03/08/14 Pb Su MD [address] [place] [address] PCP - General 02/28/14 03/01/14 Pb Su MD [address] [place] [address] PCP - General 02/25/14 02/27/14 Pb Su MD [address] [place] [address] PCP - General 02/23/14 02/24/14 Pb Su MD [address] [place] [address] PCP - General 02/17/14 02/22/14 Pb Su MD [address] [place] [address] PCP - General 11/02/13 02/16/14 Pb Su MD [address] [place], [place] [address] PCP - General 09/30/13 11/01/13 Pb Su MD [address] [place], [place] 5[address] PCP - General 06/10/13 09/29/13 documented as of this encounter
--- OUTSIDE RECORDS SUMMARY | 2024-11-15 05:10 | XMS_ITS | Encounter Summary ---
Author Organization [facility] Address [address] [place] [address]. [place], [place] [address] [place] [address] Care Team Providers Care Clinical Professor Name Role Phone Pb Su MD [...] (Late st Contact Info) Description 07/16/2013 Abstract [facility] Medical Group Multispecialty Care - [facility] [address] [place] [address] MakSeun anandDO [address] [place] [address] Social History Tobacco Use Types Packs/Day Years [...] symptoms. All questions were answered. EVON/ROSAURA/mp Job [id number] Active Problems 1. Atrial Fibrillation 427.31 2. [...] 1 TABLET BY MOUTH AT BEDTIME; Therapy: 42Ilu7811 to (Evaluate:24Jun2014); Last Rx:[id number] 2. Claritin 10 MG Oral Tablet; Therapy: (Recorded:29Jun2013) to Allergies 1. Acetaminophen-Codeine #3 TABS Vitals 71Qui9673 11:17AM BMI Calculated 29.94 BSA Calculated 2.22 Height 6 ft Weight 221 lb Assessment 1. Joint Pain In The Right Knee 719.46 2. Joint Pain, Localized In The Knee 719.46 Plan 1. Betamethasone Sod Phos & Acet 6 (3-3) MG/ML Injection Suspension; INJECT 2 ML Intra-articular; Done: 16Jul2013 12:29PM; Status: COMPLETE 2. 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 documented in this encounter Plan of Treatment Not on file documented as of this encounter Visit Diagnoses Not on filedocumented in this encounter Care Teams Clinical Professor Relationship Specialty Start Date End Date Pb Su MD [address] [place], [place] [phone] PCP - General 04/26/16 Pb Su MD [address] '[place], [place] [address] PCP - General 05/19/15 04/25/16 Pb Su MD [address] [place] [address] PCP - General 12/07/14 05/18/15 Pb Su MD [address] [place], [place] [address] PCP - General 12/05/14 12/06/14 Pb Su MD [address] [place], [place] [address]39 PCP - General 03/23/14 12/04/14 Pb Su MD [address] [place], [place] [address] PCP - General 03/21/14 03/22/14 Pb Su MD [address] [place], [place] [address] PCP - General 03/16/14 03/20/14 Pb Su MD [address] [place], [place] [address] PCP - General 03/14/14 03/15/14 Pb Su MD [address] [place], [place] [address]69 PCP - General 03/09/14 03/13/14 Pb Su MD [address] [place], [place] [address] PCP - General 03/02/14 03/08/14 Pb Su MD [address] [place], [place] [address] PCP - General 02/28/14 03/01/14 Pb Su MD [address] [place], [place] [address] PCP - General 02/25/14 02/27/14 Pb Su MD [address] [place], [place] [address] PCP - General 02/23/14 02/24/14 Pb Su MD [address] [place], [place] [address] PCP - General 02/17/14 02/22/14 Pb Su MD [address] [place], [place] [address] PCP - General 11/02/13 02/16/14 Pb Su MD [address] [place], [place] [address] PCP - General 09/30/13 11/01/13 Pb Su MD [address] [place] [address] PCP - General 06/10/13 09/29/13 documented as of this encounter
--- OUTSIDE RECORDS SUMMARY | 2024-11-15 05:10 | XMS_ITS | Encounter Summary ---
Author Organization [facility] Address [address] [place] [address]. [place], [place] [address] [place] [address] Care Team Providers Care Farm Rancher Name Role Phone Pb Su MD Primary Care Provider [phone] Pb Su MD Primary Care Provider [phone] Encounter Details Date Type Department Care Team (Late st Contact Info) Description 04/24/2016 Abstract [facility] Medical Group Family Medicine - [place] [address] [place] [address] Pb Su MD [address] [place], [place] [address] Social History Tobacco Use Types Packs/Day Years [...] 1. Claritin 10 MG Oral Tablet; Therapy: (Recorded:[id number]) to Recorded Dispense: 0 Days ; #: [...] Prof ( CMP ); Status:Active; Requested for:24Apr2016; Perform:[facility]; Due:[id number];Ordered; For:Atrial fibrillation, Fatigue, Hyperlipidemia; Ordered By:Pb Su; Atrial fibrillation, Obstructive sleep apnea 2. CBC WO Diff ( Hemogram ); Status:Active; Requested for:24Apr2016; Perform:[facility]; Due:[id number];Ordered; For:Atrial fibrillation, Obstructive sleep apnea; Ordered By:Pb Su; Erectile dysfunction 3. Lipid Profile; Status:Active; Requested for:24Apr2016; Perform:[facility]; Due:89Jnn2731;Ordered; For:Erectile dysfunction; Ordered By:Pb Su; 4. Prostate Specif Ag ( PSA ) Scrn; Status:Active; Requested for:24Apr2016; Perform:[facility]; Due:[id number];Ordered; For:Erectile dysfunction; Ordered By:Pb Su; 5. TSH W Reflex Free T4; Status:Active; Requested for:24Apr2016; Perform:[facility]; Due:24May2016;Ordered; For:Erectile dysfunction; Ordered By:Pb Su; 6. Vitamin D 25 - Hydroxy; Status:Active; Requested for:24Apr2016; Perform:[facility]; Due:24May2016;Ordered; For:Erectile dysfunction; Ordered By:Pb Su; Erectile dysfunction, Fatigue 7. Free / Total Testosterone; Status:Active; Requested for:24Apr2016; Perform:[facility]; Due:24May2016;Ordered; For:Erectile dysfunction, Fatigue; [...] we can help. 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 [employer] BATTERY (Author) documented in this encounter Plan of [...] Resul t Performing Organization Address City/[facility] Co de Phone Number [facility] TO EPIC CONVERSION * PROSTATE SPECIFIC ANTIGEN,TOTAL (04/26/2016 10:13 AM CDT) [facility] PSA 1.22 <4.0 ng/mL [facility] TO EPIC [...] more information on this test, go to http://education.[employer]/faq/ TotalTestosteroneLCMSMS Test Performed by [facility], [address] [place] [address] Haresh Duffy M.D., Ph.D., Director of Laboratories , CLIA [id number] TESTOSTERONE FREE 64.5 [place] [facility] TO EPIC CONVERSION Comment: Result Comment: Reference range: 35.0 to 155.0 Unit: pg/mL Test Performed by [facility], [address] [place], [place] Haresh Duffy M.D., Ph.D., Director of Laboratories , CLIA [id number] 04/26/2016 10:1 3 AM CDT 04/26/2016 10:13 [...] POTENTIAL INTOXICATION ??>100 ? TESTING PERFORMED AT [place] [id number] 04/26/2016 10:1 3 AM CDT 04/26/2016 10:13 [...] on filedocumented in this encounter Care Teams Farm Rancher Relationship Specialty Start Date End Date Pb Su MD [address] [place] [address] PCP - General 04/26/16 Pb Su MD [address] [place] [address] PCP - General 05/19/15 04/25/16 documented as of this encounter
--- OUTSIDE RECORDS SUMMARY | 2024-11-15 05:10 | XMS_ITS | Encounter Summary ---
Author Organization [facility] Address [address] [place] [address]. [place], [place] [address] [place] [address] Care Team Providers Care Roll Scale Worker Name Role Phone Pb Su MD Primary Care Provider [phone] Pb Su MD Primary Care Provider Pb [...] Team (Latest Contact Info) Description 02/18/[address] [facility] Medical Group Social [...] on filedocumented in this encounter Care Teams Roll Scale Worker Relationship Specialty Start Date End Date Pb Su MD [address] [place], [place] 541449 PCP - General 04/26/16 Pb Su MD [address] [place] [address] PCP - General 05/19/15 04/25/16 Pb Su MD [address] [place], [place] [address]339 PCP - General 12/07/14 05/18/15 Pb Su MD [address] [place], [place] 9[address]889 PCP - General 12/05/14 12/06/14 Pb Su MD [address] [place] [address] PCP - General 03/23/14 12/04/14 Pb Su MD [address] [place], [place] [address] PCP - General 03/21/14 03/22/14 Pb Su MD [address] [place] [address] PCP - General 03/16/14 03/20/14 Pb Su MD [address] [place] [address] PCP - General 03/14/14 03/15/14 Pb Su MD [address] [place], [place] [address] PCP - General 03/09/14 03/13/14 Pb Su MD [address] [place] [address] PCP - General 03/02/14 03/08/14 Pb Su MD [address] [place], [place] [address]119 PCP - General 02/28/14 03/01/14 Pb Su MD [address] [place], [place] [address]239 PCP - General 02/25/14 02/27/14 Pb Su MD [address] [place], [place] [address] PCP - General 02/23/14 02/24/14 Pb Su MD [address] [place] [address] PCP - General 02/17/14 02/22/14 documented as of this encounter
--- OUTSIDE RECORDS SUMMARY | 2024-11-15 05:11 | XMS_ITS | Encounter Summary ---
Author Organization [facility] Address [address] [place] [address]. [place], [place] [address] [place] [address] Care Team Providers Care Rigging Worker Name Role Phone Pb Su MD [...] Pb Su MD Primary Care Provider +[phone] Pb Su MD Primary Care Provider +[phone] Pb Su MD Primary Care Provider Pb Su MD Primary Care Provider +[phone] Pb Su MD Primary Care Provider +[phone] Sussy Zavala MD Primary Care Provider +[phone] Fernie Erickson MD Primary Care Provider Unav ailable Encounter Details Date Type Department Care Team (Latest Contact Info) Description 10/01/2010 Abstract [facility] Medical Group Social [...] on filedocumented in this encounter Care Teams Rigging Worker Relationship Specialty Start Date End Date Pb Su MD [address] [place], [place] [id number] PCP - General 04/26/16 Pb Su MD [address] [place], [place] [id number] PCP - General 05/19/15 04/25/16 Pb Su MD [address] [place], [place] [id number] PCP - General 12/07/14 05/18/15 Pb Su MD [address] [place] [address] PCP - General 12/05/14 12/06/14 Pb Su MD [address] [place] 28[address]89 PCP - General 03/23/14 12/04/14 Pb Su MD [address] [place] [address]19 PCP - General 03/21/14 03/22/14 Pb Su MD [address] [place] 46[address]09 PCP - General 03/16/14 03/20/14 Pb Su MD [address] [place] [address]149 PCP - General 03/14/14 03/15/14 Pb Su MD [address] [place] 2[address]39 PCP - General 03/09/14 03/13/14 Pb Su MD [address] [place] [address]959 PCP - General 03/02/14 03/08/14 Pb Su MD [address] [place] [address] PCP - General 02/28/14 03/01/14 Pb Su MD [address] [place] [address] PCP - General 02/25/14 02/27/14 Pb Su MD [address] [place] [address]69 PCP - General 02/23/14 02/24/14 Pb Su MD [address] [place] 313489 PCP - General 02/17/14 02/22/14 Pb Su MD [address] [place] [address] PCP - General 11/02/13 02/16/14 Pb Su MD [address] [place] 78[address]59 PCP - General 09/30/13 11/01/13 Pb Su MD [address] [place] 9[address]209 PCP - General 06/10/13 09/29/13 Pb Su MD [address] [place] [address] PCP - General 04/05/13 06/09/13 Pb Su MD [address] [place] [address] PCP - General 09/24/12 04/04/13 Pb Su MD [address] [place] [address] PCP - General 06/11/12 09/23/12 Pb Su MD [address] [place] [address] PCP - General 01/02/12 06/10/12 Pb Su MD [address] [place] [address] PCP - General 10/03/11 01/01/12 Sussy Zavala MD [address] [place] [address] PCP - General 08/05/11 10/02/11 Fernie Erickson MD [address] [place] [address] PCP - General 10/06/10 08/04/11 documented as of this encounter
--- OUTSIDE RECORDS SUMMARY | 2024-11-15 05:11 | XMS_ITS | Encounter Summary ---
Author Organization [facility] Address [address] [place] [address]. [place], [place] [address] [place] [address] Care Team Providers Care Potato Chip Maker Name Role Phone Pb Su MD [...] 10/03/[address] [facility] [address] [place] [address] Marquise Salinas MD Social History Tobacco Use [...] (pediatric) documented in this encounter Care Teams Potato Chip Maker Relationship Specialty Start Date End Date Pb Su MD [address] [place], [place] [id number] PCP - General 04/26/16 Pb Su MD [address] [place], [place] [id number] PCP - General 05/19/15 04/25/16 Pb Su MD [address] [place], [place] [id number] PCP - General 12/07/14 05/18/15 bP Su MD [address] [place] [address] PCP - General 12/05/14 12/06/14 Pb Su MD [address] [place] 4[address]79 PCP - General 03/23/14 12/04/14 Pb Su MD [address] [place] [address] PCP - General 03/21/14 03/22/14 Pb Su MD [address] [place] 78[address]29 PCP - General 03/16/14 03/20/14 Pb Su MD [address] [place] [address] PCP - General 03/14/14 03/15/14 Pb Su MD [address] [place] [address] PCP - General 03/09/14 03/13/14 Pb Su MD [address] [place] 191269 PCP - General 03/02/14 03/08/14 Pb Su MD [address] [place] [address] PCP - General 02/28/14 03/01/14 Pb Su MD [address] [place] [address] PCP - General 02/25/14 02/27/14 Pb Su MD [address] [place] [address] PCP - General 02/23/14 02/24/14 Pb Su MD [address] [place] [address] PCP - General 02/17/14 02/22/14 Pb Su MD [address] [place] [address] PCP - General 11/02/13 02/16/14 Pb Su MD [address] [place] [address] PCP - General 09/30/13 11/01/13 Pb Su MD [address] [place] 46[address]69 PCP - General 06/10/13 09/29/13 Pb Su MD [address] [place] 89[address]19 PCP - General 04/05/13 06/09/13 Pb Su MD [address] [place] 86[address] PCP - General 09/24/12 04/04/13 Pb Su MD [address] [place] [address]209 PCP - General 06/11/12 09/23/12 Pb Su MD [address] [place] [address]409 PCP - General 01/02/12 06/10/12 Pb Su MD [address] [place] [address] PCP - General 10/03/11 01/01/12 documented as of this encounter
--- OUTSIDE RECORDS SUMMARY | 2024-11-15 05:11 | XMS_ITS | Encounter Summary ---
Author Organization [facility] Address [address] [place] [address]. [place], [place] [address] [place] [address] Care Team Providers Care Academic Affairs Vice President Name Role Phone Pb Su MD Primary [...] Pb Su MD Primary Care Provider +[phone]- [phone] Encounter Details Date Type Department Care Team (Latest Contact Info) Description 08/06/2012 Abstract [facility] [...] on filedocumented in this encounter Care Teams Academic Affairs Vice President Relationship Specialty Start Date End Date Pb Su MD [address] [place], [place] [id number] PCP - General 04/26/16 Pb Su MD [address] [place], [place] [address]29 PCP - General 05/19/15 04/25/16 Pb Su MD [address] [place] 0[address]29 PCP - General 12/07/14 05/18/15 Pb Su MD [address] [place] 888249 PCP - General 12/05/14 12/06/14 Pb Su MD [address] [place] [address] PCP - General 03/23/14 12/04/14 Pb Su MD [address] [place] [address] PCP - General 03/21/14 03/22/14 Pb Su MD [address] [place] 25[address]89 PCP - General 03/16/14 03/20/14 Pb Su MD [address] [place] 27[address]79 PCP - General 03/14/14 03/15/14 Pb Su MD [address] [place] 6[address]49 PCP - General 03/09/14 03/13/14 Pb Su MD [address] [place] [address] PCP - General 03/02/14 03/08/14 Pb Su MD [address] [place] [address]69 PCP - General 02/28/14 03/01/14 Pb Su MD [address] [place] [address] PCP - General 02/25/14 02/27/14 Pb Su MD [address] [place] 90[address]19 PCP - General 02/23/14 02/24/14 Pb Su MD [address] [place] 9[address]99 PCP - General 02/17/14 02/22/14 Pb Su MD [address] [place] 213179 PCP - General 11/02/13 02/16/14 Pb Su MD [address] [place] 8[address]19 PCP - General 09/30/13 11/01/13 Pb Su MD [address] [place] [address]19 PCP - General 06/10/13 09/29/13 Pb Su MD [address] [place] 88[address]29 PCP - General 04/05/13 06/09/13 Pb Su MD [address] [place] [address] PCP - General 09/24/12 04/04/13 Pb Su MD [address] [place] [address] PCP - General 06/11/12 09/23/12 documented as of this encounter
--- OUTSIDE RECORDS SUMMARY | 2024-11-15 05:11 | XMS_ITS | Encounter Summary ---
Author Organization [facility] Address [address] [place] [address]. [place], [place] [address] [place] [address] Care Team Providers Care Lab Instructor Name Role Phone Pb Su MD [...] Pb Su MD Primary Care Provider [phone] Pb Su MD Primary Care Provider Pb Su MD Primary Care Provider [phone] Pb Su MD Primary Care Provider Encounter Details Date Type Department Care Team (Latest Contact Info) Description 06/11/2012 Abstract [facility] Medical Group Social History Tobacco Use [...] on filedocumented in this encounter Care Teams Lab Instructor Relationship Specialty Start Date End Date Pb Su MD [address] [place], [place] [id number] PCP - General 04/26/16 Pb Su MD [address] [place] [address] PCP - General 05/19/15 04/25/16 Pb Su MD [address] [place] 74[address]59 PCP - General 12/07/14 05/18/15 Pb Su MD [address] [place] 8[address]019 PCP - General 12/05/14 12/06/14 Pb Su MD [address] [place] [address] PCP - General 03/23/14 12/04/14 Pb Su MD [address] [place] 26[address]99 PCP - General 03/21/14 03/22/14 Pb Su MD [address] [place] 300809 PCP - General 03/16/14 03/20/14 Pb Su MD [address] [place] 349579 PCP - General 03/14/14 03/15/14 Pb Su MD [address] [place] [address] PCP - General 03/09/14 03/13/14 Pb Su MD [address] [place] 87[address]69 PCP - General 03/02/14 03/08/14 Pb Su MD [address] [place] 6[address]359 PCP - General 02/28/14 03/01/14 Pb Su MD [address] [place] [address] PCP - General 02/25/14 02/27/14 Pb Su MD [address] [place] 76[address] PCP - General 02/23/14 02/24/14 Pb Su MD [address] [place] 289849 PCP - General 02/17/14 02/22/14 Pb Su MD [address] [place] 46[address]89 PCP - General 11/02/13 02/16/14 Pb Su MD [address] [place] 9[address]149 PCP - General 09/30/13 11/01/13 Pb Su MD [address] [place] 87[address]29 PCP - General 06/10/13 09/29/13 Pb Su MD [address] [place] [address] PCP - General 04/05/13 06/09/13 Pb Su MD [address] [place] [address] PCP - General 09/24/12 04/04/13 Pb Su MD [address] [place] [address] PCP - General 06/11/12 09/23/12 documented as of this encounter
--- OUTSIDE RECORDS SUMMARY | 2024-11-15 05:11 | XMS_ITS | Encounter Summary ---
Author Organization [facility] Address [address] [place] [address]. [place], [place] [address] [place] [address] Care Team Providers Care Dye Lab Technician Name Role Phone Pb Su MD [...] Pb Su MD Primary Care Provider +[phone]- [phone] Pb Su MD Primary Care Provider +[phone]- [phone] Encounter Details Date Type Department Care Team (Late st Contact Info) Description 11/30/[address] [facility] [address] [place] [address] Marquise Salinas MD Social History Tobacco Use [...] apnea documented in this encounter Care Teams Dye Lab Technician Relationship Specialty Start Date End Date Pb Su MD [address] [place], [place] [id number] PCP - General 04/26/16 Pb Su MD [address] [facility] [address] PCP - General 05/19/15 04/25/16 Pb Su MD [address] [place] [address] PCP - General 12/07/14 05/18/15 Pb Su MD [address] [place] 228[address] PCP - General 12/05/14 12/06/14 Pb Su MD [address] [place] [address] PCP - General 03/23/14 12/04/14 Pb Su MD [address] [place] [address] PCP - General 03/21/14 03/22/14 Pb Su MD [address] [place] [address] PCP - General 03/16/14 03/20/14 Pb Su MD [address] [place] [address] PCP - General 03/14/14 03/15/14 Pb Su MD [address] [place] [address] PCP - General 03/09/14 03/13/14 Pb Su MD [address] [place] 64[address]99 PCP - General 03/02/14 03/08/14 Pb Su MD [address] [place] [address]209 PCP - General 02/28/14 03/01/14 Pb Su MD [address] [place] [address] PCP - General 02/25/14 02/27/14 Pb Su MD [address] [place] [address] PCP - General 02/23/14 02/24/14 Pb Su MD [address] [place] [address] PCP - General 02/17/14 02/22/14 Pb Su MD [address] [place] [address] PCP - General 11/02/13 02/16/14 Pb Su MD [address] [place] [address] PCP - General 09/30/13 11/01/13 Pb Su MD [address] [place] [address] PCP - General 06/10/13 09/29/13 Pb Su MD [address] [place] 9[address]119 PCP - General 04/05/13 06/09/13 Pb Su MD [address] [place] [address] PCP - General 09/24/12 04/04/13 documented as of this encounter
--- OUTSIDE RECORDS SUMMARY | 2024-11-15 05:11 | XMS_ITS | Encounter Summary ---
Author Organization [facility] Address [address] [place] [address]. [place], [place] [address] [place] [address] Care Team Providers Care Hand Crown Pouncer Name Role Phone Pb Su MD Primary [...] Pb Su MD Primary Care Provider [phone] Pb Su MD Primary Care Provider +[phone] Pb Su MD Primary Care Provider +[phone] Pb Su MD Primary Care Provider +[phone] Pb Su MD Primary Care Provider +[phone] Pb Su MD Primary Care Provider [phone] Sussy Zavala MD Primary Care Provider [phone] Fernie Erickson MD Primary Care Provider Unav ailable Encounter Details Date Type Department Care Team (Latest Contact Info) Description 11/01/2010 Abstract [facility] Medical Group Social [...] on filedocumented in this encounter Care Teams Hand Crown Pouncer Relationship Specialty Start Date End Date Pb Su MD [address] [place], [place] [address] PCP - General 04/26/16 Pb Su MD [address] [place], [place] 52940[address] PCP - General 05/19/15 04/25/16 Pb Su MD [address] [place] [address]36[address] PCP - General 12/07/14 05/18/15 Pb Su MD [address] [place] [address] PCP - General 12/05/14 12/06/14 Pb Su MD [address] [place] [address]259 PCP - General 03/23/14 12/04/14 Pb Su MD [address] [place] [address] PCP - General 03/21/14 03/22/14 Pb Su MD [address] [place] [address] PCP - General 03/16/14 03/20/14 Pb Su MD [address] [place] 47[address] PCP - General 03/14/14 03/15/14 Pb Su MD [address] [place] 150[address] PCP - General 03/09/14 03/13/14 Pb Su MD [address] [place] [address]269 PCP - General 03/02/14 03/08/14 Pb Su MD [address] [place] [address] PCP - General 02/28/14 03/01/14 Pb Su MD [address] [place] [address] PCP - General 02/25/14 02/27/14 Pb Su MD [address] [place] 459309 PCP - General 02/23/14 02/24/14 Pb Su MD [address] [place] [address] PCP - General 02/17/14 02/22/14 Pb Su MD [address] [place] [address] PCP - General 11/02/13 02/16/14 Pb Su MD [address] [place] [address] PCP - General 09/30/13 11/01/13 Pb Su MD [address] [place], [place] 295[address] PCP - General 06/10/13 09/29/13 Pb Su MD [address] [place] [address] PCP - General 04/05/13 06/09/13 Pb Su MD [address] [place] [address] PCP - General 09/24/12 04/04/13 Pb Su MD [address] [place] [address] PCP - General 06/11/12 09/23/12 Pb Su MD [address] [place] [address] PCP - General 01/02/12 06/10/12 Pb Su MD [address] [place] [address] PCP - General 10/03/11 01/01/12 Sussy Zavala MD [address] [place] [address] PCP - General 08/05/11 10/02/11 Fernie Erickson MD [address] [place] [address] PCP - General 10/06/10 08/04/11 documented as of this encounter
--- OUTSIDE RECORDS SUMMARY | 2024-11-15 05:11 | XMS_ITS | Encounter Summary ---
Author Organization [facility] Address [address] [place] [address]. [place], [place] [address] [place] [address] Care Team Providers Care Pump House Operator Name Role Phone Pb Su MD [...] Pb Su MD Primary Care Provider [phone] Pb Su MD Primary Care Provider [phone] Pb Su MD Primary Care Provider [phone] Encounter Details Date Type Department Care Team (Late st Contact Info) Description 01/04/2013 Abstract [facility] Medical Group Multispecialty Care - [facility] [address] [facility] [place] [address] Seun Mak DO [address] [place] [address] Social History Tobacco Use Types Packs/Day Years Used Date Smoking Tobacco: Never Assessed Sex and Gender Information Value Date Recorded Sex Assigned at Not on file Legal Sex Male 7:22 PM CDT Gender Identity Not on file Sexual Orientation Not on file documented as of this encounter Last Filed Vital Signs Vital Sign Reading Time Taken Comments Blood Pressure 120/80 01/04/2013 3:38 PM CONSULTANT Pulse - - Temperature - - Respiratory Rate - - Oxygen Saturation - - Inhaled Oxygen Concentration - - Weight 97.5 kg (215 lb) 01/04/2013 3:38 PM CONSULTANT Height 182.9 cm (6') 01/04/2013 3:38 PM CONSULTANT Body Mass Index 29.16 01/04/2013 3:38 PM CONSULTANT documented in this encounter Progress Notes [...] Oral Tablet; TAKE 2 TABLETS DAILY; Therapy: [id number] to (Evaluate:28Jan2013) Requested for: 04Dec2012; Last Rx:[id number] Allergies 1. Acetaminophen-Codeine #3 TABS Vitals [id number] 03:38PM Systolic 120 Diastolic 80 BMI Calculated 29.12 BSA Calculated 2.2 Height 6 ft Weight 215 lb Signatures Electronically signed by : Seun Mak D.O.; Jan 04 2013 6:05PM (Author) ULTANT documented in this encounter Plan of Treatment Not on file documented as of this encounter Visit Diagnoses Not on filedocumented in this encounter Care Teams Pump House Operator Relationship Specialty Start Date End Date Pb Su MD [address] [place], [place] [address]429 PCP - General 04/26/16 Pb Su MD [address] [place] [address] PCP - General 05/19/15 04/25/16 Pb Su MD [address] [place] [address] PCP - General 12/07/14 05/18/15 Pb Su MD [address] [place] [address] PCP - General 12/05/14 12/06/14 Pb Su MD [address] [place] [address] PCP - General 03/23/14 12/04/14 Pb Su MD [address] [place] [address] PCP - General 03/21/14 03/22/14 Pb Su MD [address] [place] [address] PCP - General 03/16/14 03/20/14 Pb Su MD [address] [place] [address] PCP - General 03/14/14 03/15/14 Pb Su MD [address] [place] [address] PCP - General 03/09/14 03/13/14 Pb Su MD [address] [place] [address] PCP - General 03/02/14 03/08/14 Pb Su MD [address] [place] 43[address] PCP - General 02/28/14 03/01/14 Pb Su MD [address] [place] [address] PCP - General 02/25/14 02/27/14 Pb Su MD [address] [place] [address] PCP - General 02/23/14 02/24/14 Pb Su MD [address] [place] [address]889 PCP - General 02/17/14 02/22/14 Pb Su MD [address] [place] [address] PCP - General 11/02/13 02/16/14 Pb Su MD [address] [place] [address] PCP - General 09/30/13 11/01/13 Pb Su MD [address] [place] [address]449 PCP - General 06/10/13 09/29/13 Pb Su MD [address] [place] [address] PCP - General 04/05/13 06/09/13 Pb Su MD [address] [place], [place] 64[address]39 PCP - General 09/24/12 04/04/13 documented as of this encounter
--- OUTSIDE RECORDS SUMMARY | 2024-11-15 05:11 | XMS_ITS | Encounter Summary ---
Author Organization [facility] Address [address] [place] [address]. [place], [place] [address] [place] [address] Care Team Providers Care Certification Engineer Name Role Phone Pb Su MD [...] Pb Su MD Primary Care Provider [phone] Pb Su MD Primary Care Provider [phone] Pb Su MD Primary Care Provider [phone] Pb Su MD Primary Care Provider [phone] Pb Su MD Primary Care Provider [phone] Sussy aZvala MD Primary Care Provider [phone] Fernie Erickson MD Primary Care Provider Unav ailable Encounter Details Date Type Department Care Team (Late st Contact Info) Description 04/13/2010 Abstract [facility] [address] [place], [place] [id number] Pb Su MD [address] [place], [place] [address] Social History Tobacco Use Types Packs/Day Years [...] on filedocumented in this encounter Care Teams Certification Engineer Relationship Specialty Start Date End Date Pb Su MD [address] [place], [place] 4[address] PCP - General 04/26/16 Pb Su MD [address] [place], [place] [address]179 PCP - General 05/19/15 04/25/16 Pb uS MD [address] [place] [address] PCP - General 12/07/14 05/18/15 Pb Su MD [address] [place] [address] PCP - General 12/05/14 12/06/14 Pb Su MD [address] [place] [address] PCP - General 03/23/14 12/04/14 Pb Su MD [address] [place] [address] PCP - General 03/21/14 03/22/14 Pb Su MD [address] [place] [address] PCP - General 03/16/14 03/20/14 Pb Su MD [address] [place], [place] [address]69 PCP - General 03/14/14 03/15/14 Pb Su MD [address] [place] [address] PCP - General 03/09/14 03/13/14 Pb Su MD [address] [place] [address] PCP - General 03/02/14 03/08/14 Pb Su MD [address] [place] [address] PCP - General 02/28/14 03/01/14 Pb Su MD [address] [place] [address] PCP - General 02/25/14 02/27/14 Pb Su MD [address] [place] [address] PCP - General 02/23/14 02/24/14 Pb Su MD [address] [place], [place] [id number] PCP - General 02/17/14 02/22/14 Pb Su MD [address] [place], [place] [id number] PCP - General 11/02/13 02/16/14 Pb Su MD [address] [place], [place] [id number] PCP - General 09/30/13 11/01/13 Pb Su MD [address] [place] [address] PCP - General 06/10/13 09/29/13 Pb Su MD [address] [place], [place] [id number] PCP - General 04/05/13 06/09/13 Pb Su MD [address] [place] [address] PCP - General 09/24/12 04/04/13 Pb Su MD [address] [place] [address] PCP - General 06/11/12 09/23/12 Pb Su MD [address] [place] [address] PCP - General 01/02/12 06/10/12 Pb Su MD [address] [place], [place] [id number] PCP - General 10/03/11 01/01/12 Sussy Zavala MD [facility] [address] [place] [address] PCP - General 08/05/11 10/02/11 Fernie Erickson MD [facility]. [facility] [address] [place] [address] PCP - General 10/06/10 08/04/11 documented as of this encounter
--- OUTSIDE RECORDS SUMMARY | 2024-11-15 05:11 | XMS_ITS | Encounter Summary ---
Author Organization [facility] Address [address] [place] [address]. [place], [place] [address] [place] [address] Care Team Providers Care Physician Locums Urgent Care Name Role Phone Pb Su MD Primary [...] Pb Su MD Primary Care Provider [phone] Pb uS MD Primary Care Provider +[phone] Pb Su MD Primary Care Provider +[phone] Pb Su MD Primary Care Provider Pb Su MD Primary Care Provider [phone] Pb Su MD Primary Care Provider [phone] Sussy Zavala MD Primary Care Provider [phone] Fernie Erickson MD Primary Care Provider Unav ailable Encounter Details Date Type Department Care Team (Latest Contact Info) Description 01/03/2011 Abstract [facility] Medical Group Social History Tobacco [...] filedocumented in this encounter Care Teams Physician Locums Urgent Care Relationship Specialty Start Date End Date Pb Su MD [address] [place], [place] [id number] PCP - General 04/26/16 Pb Su MD [address] [place] [address] PCP - General 05/19/15 04/25/16 Pb Su MD [address] [place] [id number] PCP - General 12/07/14 05/18/15 Pb Su MD [address] [place] [address] PCP - General 12/05/14 12/06/14 Pb Su MD [address] [place], [place] [address] PCP - General 03/23/14 12/04/14 Pb Su MD [address] [place] [address]909 PCP - General 03/21/14 03/22/14 Pb Su MD [address] [place], [place] [address] PCP - General 03/16/14 03/20/14 Pb Su MD [address] [place] [address] PCP - General 03/14/14 03/15/14 Pb Su MD [address] [place] [address]369 PCP - General 03/09/14 03/13/14 Pb Su MD [address] [place] [address] PCP - General 03/02/14 03/08/14 Pb Su MD [address] [place] [address] PCP - General 02/28/14 03/01/14 Pb Su MD [address] [place] [address] PCP - General 02/25/14 02/27/14 Pb Su MD [address] [place] [address] PCP - General 02/23/14 02/24/14 Pb Su MD [address] [place] [address] PCP - General 02/17/14 02/22/14 Pb Su MD [address] [place] [address] PCP - General 11/02/13 02/16/14 Pb Su MD [address] [place] [address] PCP - General 09/30/13 11/01/13 Pb Su MD [address] [place] [address]659 PCP - General 06/10/13 09/29/13 Pb Su MD [address] [place] [address] PCP - General 04/05/13 06/09/13 Pb Su MD [address] [place] [address] PCP - General 09/24/12 04/04/13 Pb Su MD [address] [place] [address] PCP - General 06/11/12 09/23/12 Pb Su MD [address] [place] [address] PCP - General 01/02/12 06/10/12 Pb Su MD [address] [place] [address] PCP - General 10/03/11 01/01/12 Sussy Zavala MD [address] [place] [address] PCP - General 08/05/11 10/02/11 Fernie Erickson MD [address] [place] [address] PCP - General 10/06/10 08/04/11 documented as of this encounter
--- OUTSIDE RECORDS SUMMARY | 2024-11-15 05:11 | XMS_ITS | Encounter Summary ---
Author Organization [facility] Address [address] [place] [address]. [place], [place] [address] [place] [address] Care Team Providers Care Awning Finisher Name Role Phone Pb Su MD [...] Pb Su MD Primary Care Provider +[phone]- [phone] Pb Su MD Primary Care Provider +[phone]- [phone] Pb Su MD Primary Care Provider +[phone]- [phone] Pb Su MD Primary Care Provider +[phone]- [phone] Encounter Details Date Type Department Care Team (Late st Contact Info) Description 07/31/2012 Abstract [facility] Medical Group Family Medicine - [place] [address] [place] [address] Pb Su MD [address] [place] [address] Social History Tobacco Use Types Packs/Day Years [...] spouse. He is . 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 [...] ?? CMP (Comprehensive Metabolic Profile) Requested for: 02Oga8963 ?? Lipid Profile Requested for: 55Pcn4808 ?? TSH (Thyroid Stim Hormone) Requested for: 37Pxv4370 ?? Call 287 if: You experience a new kind of chest pain (angina) or pressure. Requested for: 41Eqp9153 ?? A diet that is low in fat, cholesterol and sodium is considered a cardiac diet. Done: 04Wyy8403 ?? Avoid alcoholic beverages. Done: 98Ybu1697 ?? Begin or continue regular aerobic exercise. Gradually work up to at least 3 sessions of 30 minutes of exercise a week. Done: 84Lbx6929 ?? Eat a low fat and low cholesterol diet. Done: 38Tys5910 ?? Some eating tips that can help you lose weight. Done: 72Yde4805 ?? Start eating more fiber. Done: 48Pwf1811 Joint Pain, Localized In The Knee (719.46) ?? Physical Therapy Referral Outpatient Consult for adult Requested for: 60Mxe0522 Lower Back Pain (724.2) ?? Call if: The pain is not better in 1 week. Requested for: 65Sra6063 ?? Call if: The pain seems worse. Requested for: 93Ous2065 ?? Call if: You have pain or numbness from your back to your hip and leg. Requested for: 24Qvw4145 ?? Call if: You lose weight without trying to. Requested for: 41Mxy3874 ?? Call if: Your bowel movements are hard, difficult to push out, or if several days have gone by without a bowel movement. Requested for: 11Ugv3840 ?? Call if: Your temperature is higher than 101F. Requested for: 07Mut1482 ?? Seek Immediate Medical Attention if: You have signs of dangerous pressure on the nerves in your pelvis. Requested for: 41Dfm3876 ?? Seek Immediate Medical Attention if: Your leg becomes weak. Requested for: 32Hnr5413 ?? Seek Immediate Medical Attention if: Your leg is numb, cold, or tingling. Requested for: 96Mtb2988 ?? Begin a walking program. Start with walks lasting 10 minutes and slowly work up to 30-40 minutes as pain allows. Done: 67Nbf5348 ?? Rest the injured area as much as possible. Done: 97Ptp3381 ?? Some eating tips that can help you lose weight include: Done: 16Ukx4005 ?? There are several things you can do to help your back heal and stay healthy. Done: 99Tio4685 ?? We recommend that you avoid straining your back while lifting. Done: 71Fsc3865 Premature Ventricular Contractions (427.69) ?? Call if: The symptoms seem worse. Requested for: 81Mez4357 ?? Call if: You become dizzy or lightheaded, especially when you stand up after sitting for awhile. Requested for: 15Fzg5615 ?? Call if: You feel unusually tired. Requested for: 71Oap4096 ?? Call if: Your pulse is faster than 100 or is slower than 60 or seems irregular. Requested for: 30Wty6210 ?? Seek Immediate Medical Attention if: You are feeling short of breath. Requested for: 20Fmy4405 ?? Seek Immediate Medical Attention if: You experience a new kind of chest pain (angina) or pressure. Requested for: 69Pbs8625 ?? Seek Immediate Medical Attention if: You feel your heart is beating very fast or skipping beats. Requested for: 17Lol3280 ?? Seek Immediate Medical Attention if: You have fainted or passed out. Requested for: 16Yja7129 ?? Avoid alcoholic beverages. Done: 75Juw3124 ?? Avoid foods and beverages that contain caffeine. Done: 78Ujq2529 ?? You may continue or resume your normal level of activity. Done: 04Hjb9943 Signatures Electronically signed by : Pb Su M.D.; Jul 31 2012 3:08PM (Author) VISION ACTOR documented in this encounter Plan of Treatment Not on file documented as of this encounter Visit Diagnoses Not on filedocumented in this encounter Care Teams Awning Finisher Relationship Specialty Start Date End Date Pb Su MD [address] [place], [place] [address] PCP - General 04/26/16 Pb Su MD [address] [place], [place] [address] PCP - General 05/19/15 04/25/16 Pb Su MD [address] [place] [address] PCP - General 12/07/14 05/18/15 Pb Su MD [address] [place] [address] PCP - General 12/05/14 12/06/14 Pb Su MD [address] [place] [address] PCP - General 03/23/14 12/04/14 Pb Su MD [address] [place] [address] PCP - General 03/21/14 03/22/14 Pb Su MD [address] [place] [address] PCP - General 03/16/14 03/20/14 Pb Su MD [address] [place], [place] [address] PCP - General 03/14/14 03/15/14 Pb Su MD [address] [place] [address] PCP - General 03/09/14 03/13/14 Pb Su MD [address] [place] [address] PCP - General 03/02/14 03/08/14 Pb Su MD [address] [place] [address] PCP - General 02/28/14 03/01/14 Pb Su MD [address] [place] [address]159 PCP - General 02/25/14 02/27/14 Pb Su MD [address] [place] [address] PCP - General 02/23/14 02/24/14 Pb Su MD [address] [place] [address] PCP - General 02/17/14 02/22/14 Pb Su MD [address] [place] [address]349 PCP - General 11/02/13 02/16/14 Pb Su MD [address] [place] [address]39 PCP - General 09/30/13 11/01/13 Pb Su MD [address] [place] [address] PCP - General 06/10/13 09/29/13 Pb Su MD [address] [place] [address] PCP - General 04/05/13 06/09/13 Pb Su MD [address] [place] [address] PCP - General 09/24/12 04/04/13 Pb Su MD [address] [place], [place] [address] PCP - General 06/11/12 09/23/12 documented as of this encounter
--- OUTSIDE RECORDS SUMMARY | 2024-11-15 05:11 | XMS_ITS | Encounter Summary ---
Author Organization [facility] Address [address] [place] [address]. [place], [place] [address] [place] [address] Care Team Providers Care Manager Respiratory Name Role Phone Pb Su MD Primary [...] Pb Su MD Primary Care Provider [phone] Encounter Details Date Type Department Care Team (Latest Contact Info) Description 04/05/2013 Abstract [facility] Medical Group Vahe Chatterjee MD Social [...] Su MD - 04/05/2013 4:16 PM CDT [place] [address] Patient: AVA CEDILLO [facility] Rec#: [id number] Birthdate: 1965 Admit/Svce Date: Disch Date: CHART [...] is unremarkable. His exam is unchanged. His [place] Sleepiness Score is 3. Assessment: Clinically, he [...] M.D. 04/07/2013 20:26 IRWIN DAWKINS M.D. P #[id number] P/ma cc: Hali TOLENTINO M.D. RAL GAS TECHNICIAN documented in this encounter Plan of Treatment Not on file documented as of this encounter Visit Diagnoses Not on filedocumented in this encounter Care Teams Manager Respiratory Relationship Specialty Start Date End Date Pb Su MD [address] [place], [place] 9[address] PCP - General 04/26/16 Pb Su MD [address] [place], [place] [address] PCP - General 05/19/15 04/25/16 Pb Su MD [address] [place] [address] PCP - General 12/07/14 05/18/15 Pb Su MD [address] [place], [place] [address] PCP - General 12/05/14 12/06/14 Pb Su MD [address] [place], [place] [address] PCP - General 03/23/14 12/04/14 Pb Su MD [address] [place], [place] [address] PCP - General 03/21/14 03/22/14 Pb Su MD [address] [place] [address] PCP - General 03/16/14 03/20/14 Pb Su MD [address] [place] [address] PCP - General 03/14/14 03/15/14 Pb Su MD [address] [place] [address] PCP - General 03/09/14 03/13/14 Pb Su MD [address] [place] [address] PCP - General 03/02/14 03/08/14 Pb Su MD [address] [place] [address]229 PCP - General 02/28/14 03/01/14 Pb Su MD [address] [place] [address]209 PCP - General 02/25/14 02/27/14 Pb Su MD [address] [place] [address] PCP - General 02/23/14 02/24/14 Pb Su MD [address] [place], [place] [address]959 PCP - General 02/17/14 02/22/14 Pb Su MD [address] [place] [address] PCP - General 11/02/13 02/16/14 Pb Su MD [address] [place] [address] PCP - General 09/30/13 11/01/13 Pb Su MD [address] [place] [address] PCP - General 06/10/13 09/29/13 Pb Su MD [address] [place], [place] [address] PCP - General 04/05/13 06/09/13 documented as of this encounter
--- OUTSIDE RECORDS SUMMARY | 2024-11-15 05:11 | XMS_ITS | Encounter Summary ---
Author Organization [facility] Address [address] [place] [address]. [place], [place] [address] [place] [address] Care Team Providers Care Vice President Global Advertising Sales Name Role Phone Pb Su MD [...] Pb Su MD Primary Care Provider [phone] Pb Su MD Primary Care Provider [phone] Pb Su MD Primary Care Provider [phone] Encounter Details Date Type Department Care Team (Late st Contact Info) Description 12/04/2012 Abstract [facility] Medical Group Multispecialty Care - [facility] [address] [place] [address] Seun Mak DO [address] [place] [address] Social History Tobacco Use Types Packs/Day Years Used Date Smoking Tobacco: Never Assessed Sex and Gender Information Value Date Recorded Sex Assigned at Not on file Legal Sex Male 7:22 PM CDT Gender Identity Not on file Sexual Orientation Not on file documented as of this encounter Last Filed Vital Signs Vital Sign Reading Time Taken Comments Blood Pressure 120/80 12/04/2012 8:21 AM VRT MECHANIC Pulse - - Temperature - - Respiratory Rate - - Oxygen Saturation - - Inhaled Oxygen Concentration - - Weight 97.5 kg (215 lb) 12/04/2012 8:21 AM VRT MECHANIC Height 182.9 cm (6') 12/04/2012 8:21 AM VRT MECHANIC Body Mass Index 29.16 12/04/2012 8:21 AM VRT MECHANIC documented in this encounter Progress Notes * [...] Oral Tablet; TAKE 2 TABLETS DAILY; Therapy: [id number] to (Evaluate:28Jan2013) Requested for: 04Dec2012; Last Rx:[id number] 3. Call if: The pain is not [...] Mak D.O.; Dec 04 2012 9:36AM (Author) MECHANIC documented in this encounter Plan of Treatment Not on file documented as of this encounter Visit Diagnoses Not on filedocumented in this encounter Care Teams Vice President Global Advertising Sales Relationship Specialty Start Date End Date Pb Su MD [address] [place] [address] PCP - General 04/26/16 Pb Su MD [address] [place], [place] [address] PCP - General 05/19/15 04/25/16 Pb Su MD [address] [place] [address] PCP - General 12/07/14 05/18/15 Pb Su MD [address] [place], [place] [address] PCP - General 12/05/14 12/06/14 Pb Su MD [address] [place] [address]429 PCP - General 03/23/14 12/04/14 Pb Su MD [address] [place], [place] [address] PCP - General 03/21/14 03/22/14 Pb Su MD [address] [place], [place] [address] PCP - General 03/16/14 03/20/14 Pb Su MD [address] [place] [address] PCP - General 03/14/14 03/15/14 Pb Su MD [address] [place] [address] PCP - General 03/09/14 03/13/14 Pb Su MD [address] [place], [place] [address] PCP - General 03/02/14 03/08/14 Pb Su MD [address] [place] [address] PCP - General 02/28/14 03/01/14 Pb Su MD [address] [place] [address]399 PCP - General 02/25/14 02/27/14 Pb Su MD [address] [place] [address] PCP - General 02/23/14 02/24/14 Pb Su MD [address] [place] [address] PCP - General 02/17/14 02/22/14 Pb Su MD [address] [place], [place] [address] PCP - General 11/02/13 02/16/14 Pb Su MD [address] [place] [address] PCP - General 09/30/13 11/01/13 Pb Su MD [address] [place] [address] PCP - General 06/10/13 09/29/13 Pb Su MD [address] [place] [address] PCP - General 04/05/13 06/09/13 Pb Su MD [address] [place], [place] [address] PCP - General 09/24/12 04/04/13 documented as of this encounter
--- OUTSIDE RECORDS SUMMARY | 2024-11-15 05:11 | XMS_ITS | Encounter Summary ---
Author Organization [facility] Address [address] [place] [address]. [place], [place] [address] [place] [address] Care Team Providers Care Drapery Supervisor Name Role Phone Pb Su MD [...] (Late st Contact Info) Description 08/10/2012 Abstract [facility] [address] [place], [place] [id number] Pb Su MD [address] [place] [address] Social History Tobacco Use Types [...] hyperlipidemia documented in this encounter Care Teams Drapery Supervisor Relationship Specialty Start Date End Date Pb Su MD [address] [place], [place] [address] PCP - General 04/26/16 Pb Su MD [address] [place], [place] [address] PCP - General 05/19/15 04/25/16 Pb Su MD [address] [place] [address] PCP - General 12/07/14 05/18/15 Pb Su MD [address] [place] [address] PCP - General 12/05/14 12/06/14 Pb Su MD [address] [place] [address] PCP - General 03/23/14 12/04/14 Pb Su MD [address] [place], [place] 88[address]39 PCP - General 03/21/14 03/22/14 Pb Su MD [address] [place] [address] PCP - General 03/16/14 03/20/14 Pb Su MD [address] [place], [place] [address]40[address] PCP - General 03/14/14 03/15/14 Pb Su MD [address] [place], [place] [address] PCP - General 03/09/14 03/13/14 Pb Su MD [address] [place], [place] [address] PCP - General 03/02/14 03/08/14 Pb Su MD [address] [place] [address] PCP - General 02/28/14 03/01/14 Pb Su MD [address] [place], [place] [address] PCP - General 02/25/14 02/27/14 Pb Su MD [address] [place] [address] PCP - General 02/23/14 02/24/14 Pb Su MD [address] [place], [place] [address] PCP - General 02/17/14 02/22/14 Pb Su MD [address] [place] [address] PCP - General 11/02/13 02/16/14 Pb Su MD [address] [place] [address] PCP - General 09/30/13 11/01/13 Pb Su MD [address] [place], [place] [address] PCP - General 06/10/13 09/29/13 Pb Su MD [address] [place] [address] PCP - General 04/05/13 06/09/13 Pb Su MD [address] [place], [place] [address] PCP - General 09/24/12 04/04/13 Pb Su MD [address] [place], [place] [address] PCP - General 06/11/12 09/23/12 documented as of this encounter
--- OUTSIDE RECORDS SUMMARY | 2024-11-15 05:11 | XMS_ITS | Encounter Summary ---
Author Organization [facility] Address [address] [place] [address]. [place], [place] [address] [place] [address] Care Team Providers Care Fine Dining Server Name Role Phone Pb Su MD Primary Care Provider [phone] Pb Su MD Primary Care Provider Pb [...] Pb Su MD Primary Care Provider [phone] Pb Su MD Primary Care Provider [phone] Pb Su MD Primary Care Provider [phone] Pb Su MD Primary Care Provider [phone] Pb Su MD Primary Care Provider [phone] Sussy Zavala MD Primary Care Provider [phone] Fernie Erickson MD Primary Care Provider Unav ailable Encounter Details Date Type Department Care Team (Late st Contact Info) Description 12/16/[address] [facility] Diagnostic Imaging [address] [place], [place] [id number] Pb Su MD [address] [place], [place] [address] Social History Tobacco Use Types Packs/Day Years [...] on filedocumented in this encounter Care Teams Fine Dining Server Relationship Specialty Start Date End Date Pb Su MD [address] [place], [place] 7[address] PCP - General 04/26/16 Pb Su MD [address] [place], [place] [address]119 PCP - General 05/19/15 04/25/16 Pb Su MD [address] [place] [address] PCP - General 12/07/14 05/18/15 Pb Su MD [address] [place] [address] PCP - General 12/05/14 12/06/14 Pb Su MD [address] [place] [address] PCP - General 03/23/14 12/04/14 Pb Su MD [address] [place] [address] PCP - General 03/21/14 03/22/14 Pb Su MD [address] [place] [address] PCP - General 03/16/14 03/20/14 Pb Su MD [address] [place] [address] PCP - General 03/14/14 03/15/14 Pb Su MD [address] [place], [place] [address] PCP - General 03/09/14 03/13/14 Pb Su MD [address] [place] [address] PCP - General 03/02/14 03/08/14 Pb Su MD [address] [place] [address] PCP - General 02/28/14 03/01/14 Pb Su MD [address] [place] [address] PCP - General 02/25/14 02/27/14 Pb Su MD [address] [place] [address] PCP - General 02/23/14 02/24/14 Pb Su MD [address] [place] [address] PCP - General 02/17/14 02/22/14 Pb Su MD [address] [place] [address] PCP - General 11/02/13 02/16/14 Pb Su MD [address] [place], [place] [address] PCP - General 09/30/13 11/01/13 Pb Su MD [address] [place] [address] PCP - General 06/10/13 09/29/13 Pb Su MD [address] [place] [address] PCP - General 04/05/13 06/09/13 Pb Su MD [address] [place] [address] PCP - General 09/24/12 04/04/13 Pb Su MD [address] [place] [address] PCP - General 06/11/12 09/23/12 Pb Su MD [address] [place] [address] PCP - General 01/02/12 06/10/12 Pb Su MD [address] [place] [address] PCP - General 10/03/11 01/01/12 Sussy Zavala MD [facility] [address] [place] [address] PCP - General 08/05/11 10/02/11 Fernie Erickson MD [facility] [address] [place] [address] PCP - General 10/06/10 08/04/11 documented as of this encounter
--- OUTSIDE RECORDS SUMMARY | 2024-11-15 05:11 | XMS_ITS | Encounter Summary ---
Author Organization [facility] Address [address] [place] [address]. [place], [place] [address] [place] [address] Care Team Providers Care Supervisor Machine Setter Name Role Phone Pb Su MD [...] Pb Su MD Primary Care Provider [phone] Encounter Details Date Type Department Care Team (Latest Contact Info) Description 09/21/2012 Abstract [facility] [...] filedocumented in this encounter Care Teams Supervisor Machine Setter Relationship Specialty Start Date End Date Pb Su MD [address] [place], [place] [id number] PCP - General 04/26/16 Pb Su MD [address] [place], [place] 39[address]79 PCP - General 05/19/15 04/25/16 Pb Su MD [address] [place] [address]709 PCP - General 12/07/14 05/18/15 Pb Su MD [address] [place] 48[address]89 PCP - General 12/05/14 12/06/14 Pb Su MD [address] [place] [address] PCP - General 03/23/14 12/04/14 Pb Su MD [address] [place] 12[address]99 PCP - General 03/21/14 03/22/14 Pb Su MD [address] [place] [address]59 PCP - General 03/16/14 03/20/14 Pb Su MD [address] [place] [address]69 PCP - General 03/14/14 03/15/14 Pb Su MD [address] [place] 43[address]59 PCP - General 03/09/14 03/13/14 Pb Su MD [address] [place] 77[address]59 PCP - General 03/02/14 03/08/14 Pb Su MD [address] [place] 78[address]59 PCP - General 02/28/14 03/01/14 Pb Su MD [address] [place] [address] PCP - General 02/25/14 02/27/14 Pb Su MD [address] [place] 95[address]59 PCP - General 02/23/14 02/24/14 Pb Su MD [address] [place] 6[address]229 PCP - General 02/17/14 02/22/14 Pb Su MD [address] [place] 78[address]29 PCP - General 11/02/13 02/16/14 Pb Su MD [address] [place] 3[address]29 PCP - General 09/30/13 11/01/13 Pb Su MD [address] [place] 0[address]19 PCP - General 06/10/13 09/29/13 Pb Su MD [address] [place] 334159 PCP - General 04/05/13 06/09/13 Pb Su MD [address] [place] [address] PCP - General 09/24/12 04/04/13 Pb Su MD [address] [place] [address] PCP - General 06/11/12 09/23/12 documented as of this encounter
--- OUTSIDE RECORDS SUMMARY | 2024-11-15 05:11 | XMS_ITS | Encounter Summary ---
Author Organization [facility] Address [address] [place] [address]. [place], [place] [address] [place] [address] Care Team Providers Care Graphics Software Engineer Name Role Phone Pb Su [...] Pb Su MD Primary Care Provider +[phone] Pb Su MD Primary Care Provider [phone] Pb Su MD Primary Care Provider +[phone] Pb Su MD Primary Care Provider +[phone] Pb Su MD Primary Care Provider +[phone] Pb Su MD Primary Care Provider [phone] Sussy Zavala MD Primary Care Provider [phone] Fernie Erickson MD Primary Care Provider Unav ailable Encounter Details Date Type Department Care Team (Late st Contact Info) Description 08/20/2010 Abstract [facility] [address] [address] [place], [place] [id number] Pb Su MD [address] [place], [place] 9[address]689 Social History Tobacco Use Types Packs/Day Years [...] on filedocumented in this encounter Care Teams Graphics Software Engineer Relationship Specialty Start Date End Date Pb Su MD [address] [place], [place] 5[address]679 PCP - General 04/26/16 Pb Su MD [address] [place] 470589 PCP - General 05/19/15 04/25/16 Pb Su MD [address] [place] [address] PCP - General 12/07/14 05/18/15 Pb Su MD [address] [place] [address]109 PCP - General 12/05/14 12/06/14 Pb Su MD [address] [place] [address] PCP - General 03/23/14 12/04/14 Pb Su MD [address] [place] [address] PCP - General 03/21/14 03/22/14 Pb Su MD [address] [place] 8[address]99 PCP - General 03/16/14 03/20/14 Pb Su MD [address] [place] 69[address]19 PCP - General 03/14/14 03/15/14 Pb Su MD [address] [place] 29[address]79 PCP - General 03/09/14 03/13/14 Pb Su MD [address] [place] [address] PCP - General 03/02/14 03/08/14 Pb Su MD [address] [place] [address] PCP - General 02/28/14 03/01/14 Pb Su MD [address] [place] [address] PCP - General 02/25/14 02/27/14 Pb Su MD [address] [place] [address] PCP - General 02/23/14 02/24/14 Pb Su MD [address] [place] [address] PCP - General 02/17/14 02/22/14 Pb Su MD [address] [place] 92[address]89 PCP - General 11/02/13 02/16/14 Pb Su MD [address] [place] 60[address]79 PCP - General 09/30/13 11/01/13 Pb Su MD [address] [place] [address] PCP - General 06/10/13 09/29/13 Pb Su MD [address] [place] [address] PCP - General 04/05/13 06/09/13 Pb Su MD [address] [place] [address] PCP - General 09/24/12 04/04/13 Pb Su MD [address] [place] [address] PCP - General 06/11/12 09/23/12 Pb Su MD [address] [place] [address] PCP - General 01/02/12 06/10/12 Pb Su MD [address] [place] 806849 PCP - General 10/03/11 01/01/12 Sussy Zavala MD [facility] [address] [place] [address] PCP - General 08/05/11 10/02/11 Fernie Erickson MD [facility] [address] [place] [address] PCP - General 10/06/10 08/04/11 documented as of this encounter
--- OUTSIDE RECORDS SUMMARY | 2024-11-15 05:11 | XMS_ITS | Encounter Summary ---
Author Organization [facility] Address [address] [place] [address]. [place], [place] [address] [place] [address] Care Team Providers Care Superintendent Fish Hatchery Name Role Phone Pb Su MD Primary [...] Description 06/10/[address] [facility] [place] [address] Pb Su MD [address] [place], [place] 79583269 Social History Tobacco Use Types Packs/Day Years [...] fatigue documented in this encounter Care Teams Superintendent Fish Hatchery Relationship Specialty Start Date End Date Pb Su MD [address] [place], [place] 7[address]809 PCP - General 04/26/16 Pb Su MD [address] [place], [place] 364[address] PCP - General 05/19/15 04/25/16 Pb Su MD [address] [place] 39460269 PCP - General 12/07/14 05/18/15 Pb Su MD [address] [place] 87[address]69 PCP - General 12/05/14 12/06/14 Pb Su MD [address] [place] [address] PCP - General 03/23/14 12/04/14 Pb Su MD [address] [place] 188239 PCP - General 03/21/14 03/22/14 Pb Su MD [address] [place] [address] PCP - General 03/16/14 03/20/14 Pb Su MD [address] [place] [address] PCP - General 03/14/14 03/15/14 Pb Su MD [address] [place] [address] PCP - General 03/09/14 03/13/14 Pb Su MD [address] [place] 79[address]59 PCP - General 03/02/14 03/08/14 Pb Su MD [address] [place] 9[address]689 PCP - General 02/28/14 03/01/14 Pb Su MD [address] [place] [address] PCP - General 02/25/14 02/27/14 Pb Su MD [address] [place] 396499 PCP - General 02/23/14 02/24/14 Pb Su MD [address] [place] 934909 PCP - General 02/17/14 02/22/14 Pb Su MD [address] [place] 941039 PCP - General 11/02/13 02/16/14 Pb Su MD [address] [place] 8[address]259 PCP - General 09/30/13 11/01/13 Pb Su MD [address] [place] 32[address]99 PCP - General 06/10/13 09/29/13 documented as of this encounter
--- OUTSIDE RECORDS SUMMARY | 2024-11-15 05:11 | XMS_ITS | Encounter Summary ---
Author Organization [facility] Address [address] [place] [address]. [place], [place] [address] [place] [address] Care Team Providers Care Strategic Consultant Name Role Phone Pb Su MD [...] Pb Su MD Primary Care Provider [phone] Pb Su MD Primary Care Provider Pb Su MD Primary Care Provider [phone] Pb Su MD Primary Care Provider [phone] Pb Su MD Primary Care Provider [phone] Pb Su MD Primary Care Provider [phone] Pb Su MD Primary Care Provider [phone] Pb Su MD Primary Care Provider [phone] Sussy Zavala MD Primary Care Provider [phone] Fernie Erickson MD Primary Care Provider Unav ailable Encounter Details Date Type Department Care Team (Late st Contact Info) Description 04/29/2011 Abstract [facility] [address] [place], [place] [id number] Pb Su MD [address] [place], [place] 9[address]209 Social History Tobacco Use Types Packs/Day Years [...] Lumbago documented in this encounter Care Teams Strategic Consultant Relationship Specialty Start Date End Date Pb Su MD [address] [place], [place] [address] PCP - General 04/26/16 Pb Su MD [address] [place] [address] PCP - General 05/19/15 04/25/16 Pb Su MD [address] [place] [address] PCP - General 12/07/14 05/18/15 Pb Su MD [address] [place] 541589 PCP - General 12/05/14 12/06/14 Pb Su MD [address] [place] [address] PCP - General 03/23/14 12/04/14 Pb Su MD [address] [place] 7[address]489 PCP - General 03/21/14 03/22/14 Pb Su MD [address] [place] 6723[address] PCP - General 03/16/14 03/20/14 Pb Su MD [address] [place] 13[address]89 PCP - General 03/14/14 03/15/14 Pb Su MD [address] [place] 9[address]229 PCP - General 03/09/14 03/13/14 Pb Su MD [address] [place] [address] PCP - General 03/02/14 03/08/14 Pb Su MD [address] [place] [address] PCP - General 02/28/14 03/01/14 Pb Su MD [address] [place] [address] PCP - General 02/25/14 02/27/14 Pb Su MD [address] [place] [address] PCP - General 02/23/14 02/24/14 Pb Su MD [address] [place] [address] PCP - General 02/17/14 02/22/14 Pb Su MD [address] [place] 564409 PCP - General 11/02/13 02/16/14 Pb Su MD [address] [place] [address] PCP - General 09/30/13 11/01/13 Pb Su MD [address] [place] [address] PCP - General 06/10/13 09/29/13 Pb Su MD [address] [place] [address]109 PCP - General 04/05/13 06/09/13 Pb Su MD [address] [place] [address] PCP - General 09/24/12 04/04/13 Pb Su MD [address] [place] [address] PCP - General 06/11/12 09/23/12 Pb Su MD [address] [place] 606359 PCP - General 01/02/12 06/10/12 Pb Su MD [address] [place] 9[address]29 PCP - General 10/03/11 01/01/12 Sussy Zavala MD [facility] [address] [place] [address] PCP - General 08/05/11 10/02/11 Fernie Erickson MD [facility]. [place] [address] [place] [address] PCP - General 10/06/10 08/04/11 documented as of this encounter
--- OUTSIDE RECORDS SUMMARY | 2024-11-15 05:11 | XMS_ITS | Encounter Summary ---
Author Organization [facility] Address [address] [place] [address]. [place], [place] [address] [place] [address] Care Team Providers Care Hadoop Application Developer Name Role Phone Pb Su MD [...] Pb Su MD Primary Care Provider [phone] Pb Su MD Primary Care Provider [phone] Pb Su MD Primary Care Provider [phone] Encounter Details Date Type Department Care Team (Late st Contact Info) Description 10/30/2012 [facility] [address] [place] [address] Seun MakDO [address] [facility] [address] [place] [address] [place] [address] Social History Tobacco Use Types Packs/Day Years [...] Tablet; TAKE 1 TABLET DAILY DIRECTED; Therapy: [id number] to (Evaluate:14Feb2013); Last Rx:[id number] 2. Claritin 10 MG Oral Tablet; TAKE [...] Views: AP and lateral views and from [facility] of the right knee. Findings: there is no advanced arthritis. No acute fractures noted. Knee MRI (Brief): MRI from [facility] dated August 28, 2010 reveals a fissure [...] Mak D.O.; Oct 30 2012 9:22AM (Author) LY COUNSELOR documented in this encounter Plan of Treatment Not on file documented as of this encounter Visit Diagnoses Not on filedocumented in this encounter Care Teams Hadoop Application Developer Relationship Specialty Start Date End Date Pb Su MD [address] [place] [address] PCP - General 04/26/16 Pb Su MD [address] [place] [address] PCP - General 05/19/15 04/25/16 Pb Su MD [address] [place] [address] PCP - General 12/07/14 05/18/15 Pb Su MD [address] [place] [address] PCP - General 12/05/14 12/06/14 Pb Su MD [address] [place] [address] PCP - General 03/23/14 12/04/14 Pb Su MD [address] [place] 94[address] PCP - General 03/21/14 03/22/14 Pb Su MD [address] [place] 25[address] PCP - General 03/16/14 03/20/14 Pb Su MD [address] [place] 84[address] PCP - General 03/14/14 03/15/14 Pb Su MD [address] [place] 354779 PCP - General 03/09/14 03/13/14 Pb Su MD [address] [place] [address]679 PCP - General 03/02/14 03/08/14 Pb Su MD [address] [place] [address] PCP - General 02/28/14 03/01/14 Pb Su MD [address] [place] 572239 PCP - General 02/25/14 02/27/14 Pb Su MD [address] [place] 555849 PCP - General 02/23/14 02/24/14 Pb Su MD [address] [place], [place] 44[address]49 PCP - General 02/17/14 02/22/14 Pb Su MD [address] [place] [address]299 PCP - General 11/02/13 02/16/14 Pb Su MD [address] [place] [address]299 PCP - General 09/30/13 11/01/13 Pb Su MD [address] [place] [address] PCP - General 06/10/13 09/29/13 Pb Su MD [address] [place] [address] PCP - General 04/05/13 06/09/13 Pb Su MD [address] [place] [address] PCP - General 09/24/12 04/04/13 documented as of this encounter
--- OUTSIDE RECORDS SUMMARY | 2024-11-15 05:11 | XMS_ITS | Encounter Summary ---
Author Organization [facility] Address [address] [place] [address]. [place], [place] [address] [place] [address] Care Team Providers Care Feather Renovator Name Role Phone Pb Su MD Primary [...] Pb Su MD Primary Care Provider [phone] Pb Su MD Primary Care Provider Pb Su MD Primary Care Provider Encounter Details Date Type Department Care Team (Late st Contact Info) Description 06/11/2012 Abstract [facility] [address] [facility] [address] [place], [place] [id number] Pb Su MD [address] [place] [address] Social History Tobacco Use Types [...] unspecified documented in this encounter Care Teams Feather Renovator Relationship Specialty Start Date End Date Pb Su MD [address] [place], [place] [address] PCP - General 04/26/16 Pb Su MD [address] [place], [place] 9[address]49[address] PCP - General 05/19/15 04/25/16 Pb Su MD [address] [place] [address] PCP - General 12/07/14 05/18/15 Pb Su MD [address] [place] [address] PCP - General 12/05/14 12/06/14 Pb Su MD [address] [place] [address] PCP - General 03/23/14 12/04/14 Pb Su MD [address] [place] 401139 PCP - General 03/21/14 03/22/14 Pb Su MD [address] [place] [address] PCP - General 03/16/14 03/20/14 Pb Su MD [address] [place] 14[address] PCP - General 03/14/14 03/15/14 Pb Su MD [address] [place] 6[address]009 PCP - General 03/09/14 03/13/14 Pb Su MD [address] [place], [place] 314099 PCP - General 03/02/14 03/08/14 Pb Su MD [address] [place] [address] PCP - General 02/28/14 03/01/14 Pb Su MD [address] [place] 991559 PCP - General 02/25/14 02/27/14 Pb Su MD [address] [place] [address]779 PCP - General 02/23/14 02/24/14 Pb uS MD [address] [place], [place] 9[address]679 PCP - General 02/17/14 02/22/14 Pb Su MD [address] [place] [address] PCP - General 11/02/13 02/16/14 Pb Su MD [address] [place] 24[address]29 PCP - General 09/30/13 11/01/13 Pb Su MD [address] [place] 204899 PCP - General 06/10/13 09/29/13 Pb Su MD [address] [place] 0[address]99 PCP - General 04/05/13 06/09/13 Pb Su MD [address] [place] 17278[address] PCP - General 09/24/12 04/04/13 Pb Su MD [address] [place], [place] 33542269 PCP - General 06/11/12 09/23/12 documented as of this encounter
--- OUTSIDE RECORDS SUMMARY | 2024-11-15 05:11 | XMS_ITS | Encounter Summary ---
Author Organization [facility] Address [address] [place] [address]. [place], [place] [address] [place] [address] Care Team Providers Care Remotely Piloted Vehicle Controller Name Role Phone Pb Su MD Primary [...] Pb Su MD Primary Care Provider [phone] Pb Su MD Primary Care Provider +[phone] Pb Su MD Primary Care Provider Pb Su MD Primary Care Provider [phone] Pb Su MD Primary Care Provider Encounter Details Date Type Department Care Team (Late st Contact Info) Description 01/02/[address] [facility] [address] [place] [address] Marquise Salinas MD Social History Tobacco Use [...] apnea documented in this encounter Care Teams Remotely Piloted Vehicle Controller Relationship Specialty Start Date End Date Pb Su MD [address] [place], [place] 15[address] PCP - General 04/26/16 Pb Su MD [address] [place], [place] 98604[address] PCP - General 05/19/15 04/25/16 Pb Su MD [address] [place], [place] [address] PCP - General 12/07/14 05/18/15 Pb Su MD [address] [place] [address] PCP - General 12/05/14 12/06/14 Pb Su MD [address] [place] 9[address]149 PCP - General 03/23/14 12/04/14 Pb Su MD [address] [place], [place] 543249 PCP - General 03/21/14 03/22/14 Pb Su MD [address] [place], [place] 6[address] PCP - General 03/16/14 03/20/14 Pb Su MD [address] [place], [place] 67[address] PCP - General 03/14/14 03/15/14 Pb Su MD [address] [place], [place] [address]169 PCP - General 03/09/14 03/13/14 Pb Su MD [address] [place] [address] PCP - General 03/02/14 03/08/14 Pb Su MD [address] [place] [address] PCP - General 02/28/14 03/01/14 Pb Su MD [address] [place] [address]999 PCP - General 02/25/14 02/27/14 Pb Su MD [address] [place] 9[address]89 PCP - General 02/23/14 02/24/14 Pb Su MD [address] [place], [place] 36[address]79 PCP - General 02/17/14 02/22/14 Pb Su MD [address] [place], [place] 25[address] PCP - General 11/02/13 02/16/14 Pb Su MD [address] [place] 9[address]879 PCP - General 09/30/13 11/01/13 Pb Su MD [address] [place] 3[address] PCP - General 06/10/13 09/29/13 Pb Su MD [address] [place] [address] PCP - General 04/05/13 06/09/13 Pb Su MD [address] [place] [address] PCP - General 09/24/12 04/04/13 Pb Su MD [address] [place] [address] PCP - General 06/11/12 09/23/12 Pb Su MD [address] [place] [address] PCP - General 01/02/12 06/10/12 documented as of this encounter
--- OUTSIDE RECORDS SUMMARY | 2024-11-15 05:11 | XMS_ITS | Encounter Summary ---
Author Organization [facility] Address [address] [place] [address]. [place], [place] [address] [place] [address] Care Team Providers Care Busser Name Role Phone Pb Su MD Primary [...] Pb Su MD Primary Care Provider [phone] Pb Su MD Primary Care Provider [phone] Pb Su MD Primary Care Provider +[phone] Pb Su MD Primary Care Provider [phone] Pb Su MD Primary Care Provider [phone] Pb Su MD Primary Care Provider [phone] Sussy Zavala MD Primary Care Provider [phone] Encounter Details Date Type Department Care Team (Late st Contact Info) Description 08/22/[address] [facility] [address] [place] [address] Marquise Salinas MD Social History Tobacco Use [...] (pediatric) documented in this encounter Care Teams Busser Relationship Specialty Start Date End Date Pb Su MD [address] [place], [place] 422859 PCP - General 04/26/16 Pb Su MD [address] [place], [place] [address]25[address] PCP - General 05/19/15 04/25/16 Pb Su MD [address] [place], [place] 15747[address] PCP - General 12/07/14 05/18/15 Pb Su MD [address] [place] [address] PCP - General 12/05/14 12/06/14 Pb Su MD [address] [place] [address] PCP - General 03/23/14 12/04/14 Pb Su MD [address] [place] [address]999 PCP - General 03/21/14 03/22/14 Pb Su MD [address] [place], [place] 73[address]79 PCP - General 03/16/14 03/20/14 Pb Su MD [address] [place] 306149 PCP - General 03/14/14 03/15/14 Pb Su MD [address] [place] 8[address]19 PCP - General 03/09/14 03/13/14 Pb Su MD [address] [place], [place] 83[address]89 PCP - General 03/02/14 03/08/14 Pb Su MD [address] [place] [address] PCP - General 02/28/14 03/01/14 Pb Su MD [address] [place] [address] PCP - General 02/25/14 02/27/14 Pb Su MD [address] [place] [address]879 PCP - General 02/23/14 02/24/14 Pb Su MD [address] [place] [address]609 PCP - General 02/17/14 02/22/14 Pb Su MD [address] [place], [place] [address]809 PCP - General 11/02/13 02/16/14 Pb Su MD [address] [place], [place] [address] PCP - General 09/30/13 11/01/13 Pb Su MD [address] [place], [place] [id number] PCP - General 06/10/13 09/29/13 Pb Su MD [address] [place] [address] PCP - General 04/05/13 06/09/13 Pb Su MD [address] [place], [place] [address] PCP - General 09/24/12 04/04/13 Pb Su MD [address] [place], [place] [id number] PCP - General 06/11/12 09/23/12 Pb Su MD [address] [place], [place] [address] PCP - General 01/02/12 06/10/12 Pb Su MD [address] [place], [place] [id number] PCP - General 10/03/11 01/01/12 Sussy Zavala MD [facility]. [address] [place], [place] [id number] PCP - General 08/05/11 10/02/11 documented as of this encounter
--- OUTSIDE RECORDS SUMMARY | 2024-11-15 05:11 | XMS_ITS | Encounter Summary ---
Author Organization [facility] Address [address] [place] [address]. [place], [place] [address] [place] [address] Care Team Providers Care Desk Director Name Role Phone Pb Su MD [...] Pb Su MD Primary Care Provider [phone]- [phone] Encounter Details Date Type Department Care Team (Latest Contact Info) Description 08/10/2012 Abstract [facility] Medical [facility] Social [...] on filedocumented in this encounter Care Teams Desk Director Relationship Specialty Start Date End Date Pb Su MD [address] [place], [place] [id number] PCP - General 04/26/16 Pb Su MD [address] [place], [place] [address] PCP - General 05/19/15 04/25/16 Pb Su MD [address] [place] [address]879 PCP - General 12/07/14 05/18/15 Pb Su MD [address] [place] [address] PCP - General 12/05/14 12/06/14 Pb Su MD [address] [place] [address] PCP - General 03/23/14 12/04/14 Pb Su MD [address] [place] [address]809 PCP - General 03/21/14 03/22/14 Pb Su MD [address] [place] [address] PCP - General 03/16/14 03/20/14 Pb Su MD [address] [place] [address] PCP - General 03/14/14 03/15/14 Pb Su MD [address] [place] [address] PCP - General 03/09/14 03/13/14 Pb Su MD [address] [place] [address] PCP - General 03/02/14 03/08/14 Pb Su MD [address] [place] [address] PCP - General 02/28/14 03/01/14 Pb Su MD [address] [place] [address] PCP - General 02/25/14 02/27/14 Pb Su MD [address] [place] [address] PCP - General 02/23/14 02/24/14 Pb Su MD [address] [place] [address] PCP - General 02/17/14 02/22/14 Pb Su MD [address] [place] [address]209 PCP - General 11/02/13 02/16/14 Pb Su MD [address] [place] [address] PCP - General 09/30/13 11/01/13 Pb Su MD [address] [place] 3[address]89 PCP - General 06/10/13 09/29/13 Pb Su MD [address] [place] [address]69 PCP - General 04/05/13 06/09/13 Pb Su MD [address] [place] [address] PCP - General 09/24/12 04/04/13 Pb Su MD [address] [place] [address] PCP - General 06/11/12 09/23/12 documented as of this encounter
--- OUTSIDE RECORDS SUMMARY | 2024-11-15 05:11 | XMS_ITS | Encounter Summary ---
Author Organization [facility] Address [address] [place] [address]. [place], [place] [address] [place] [address] Care Team Providers Care Recovery Unit Operator Name Role Phone Pb Su MD [...] Pb Su MD Primary Care Provider +- [phone] Encounter Details Date Type Department Care Team (Late st Contact Info) Description 06/10/2013 Abstract [facility] Family Medicine - [place] [address] [place] [phone] Pb Su MD [address] [place], [place] [address] Social History Tobacco Use Types Packs/Day Years [...] Results CBC WO Diff ( Hemogram ) [id number] 10:05AM Pb Su Test Name Result Flag [...] >=160 >=130 TSH W Reflex Free T4 [id number] 10:05AM Pb Su Test Name Result Flag Reference TSH w Reflex Free T4 1.29 mIU/mL 0.27-4.20 FREE T4 NOT INDICATED Prostate Specif Ag ( PSA ) Scrn [id number] 10:05AM Pb Su Test Name Result Flag Reference Prostate Specific Antigen 0.760 ng/mL <4.0 TEST WAS PERFORMED USING THE YADI METHOD. PSA VALUES OBTAINED WITH OTHER ASSAY METHODS OR KITS CANNOT BE USED INTERCHANGEABLY WITH RESULTS OBTAINED BY THE YADI METHOD. 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 [...] Vitals Vital Signs [Data Includes: Current Encounter] [id number] 08:12AM Temperature 98 F, Oral Heart Rate [...] Results CBC WO Diff ( Hemogram ) [id number] 10:05AM Pb Su Test Name Result Flag [...] Metabolic Prof ( CMP ) Requested for: [id number] Ordered; For: Hyperlipidemia (272.4); Ordered By: Pb Su Perform: [facility] Due: [id number] 2. Lipid Profile Requested for: [id number] Ordered; For: Hyperlipidemia (272.4); Ordered By: Pb Su Perform: [facility] Due: [id number] 3. CBC WO Diff ( Hemogram ) Done: 10Jun2013 10:05AM Ordered; For: Hyperlipidemia (272.4), Fatigue (780.79); Ordered By: Pb Su Performed: [facility] Due: [id number] 4. TSH W Reflex Free T4 Done: 10Jun2013 10:05AM Ordered; For: Hyperlipidemia (272.4), Fatigue (780.79); Ordered By: Pb Su Performed: [facility] Due: [id number] 5. Nabumetone 500 MG Oral Tablet; TAKE 2 TABLETS DAILY; Therapy: 09Nxh8037 to 50Nro7082; Last Rx:[id number]; Status: DISCONTINUED Ordered; For: Joint Pain, Localized In The Knee (719.46); Rx By: Seun Mak; Dispense: 30 Days; #:60 Tablet; Refill: 2; Sent To: [facility]; Last Updated By: Denisse Ceja 6. Prostate Specif Ag ( PSA ) Scrn Done: 10Jun2013 10:05AM Ordered; For: Visit For: Screening Exam Malignant Neoplasm Prostate (V76.44); Ordered By: Pb Su Performed: [facility] Due: [id number] 7. Vitamin D 25 - Hydroxy Requested for: [id number] Ordered; For: Vitamin D Deficiency (268.9); Ordered By: Pb Su Perform: [facility] Due: [id number] Discussion/Summary Discussion Summary Free Text: Summary: 48 yo male with 3-4 week history of fatigue, malaise, somulence but denies bleeding per rectum, chest pain, depression. Admits to notusing CPAP. As customary, we reviewed PMH, performed history,exam, developed differential to include evaluation/treatment program! Signatures Electronically signed by : Pb Su M.D.; Jun 10 2013 4:33PM (Author) RATOR TENDER documented in this encounter Plan of Treatment [...] POTENTIAL INTOXICATION ??>100 ? TESTING PERFORMED AT [facility], A MEMBER OF THE [facility]. 06/10/2013 10:0 5 AM [...] METABOLIC PANEL (06/10/2013 10:05 AM CDT) Pathologist [facility] SODIUM S/P/B 137 136 - 145 mmol/L [...] LABORATORY Final Resul t Performing Organization Address [facility] de Phone Number [employer] TO EPIC [...] LABORATORY Final Resul t Performing Organization Address [facility] de Phone Number [employer] EPIC [...] on filedocumented in this encounter Care Teams Recovery Unit Operator Relationship Specialty Start Date End Date Pb Su MD [address] [place], [place] [address] PCP - General 04/26/16 Pb Su MD [address] [place], [place] [address] PCP - General 05/19/15 04/25/16 Pb Su MD [address] [place] [address] PCP - General 12/07/14 05/18/15 Pb Su MD [address] [place], [place] [address] PCP - General 12/05/14 12/06/14 Pb Su MD [address] [place] [address] PCP - General 03/23/14 12/04/14 Pb Su MD [address] [place] [address] PCP - General 03/21/14 03/22/14 Pb Su MD [address] [place] [address] PCP - General 03/16/14 03/20/14 Pb Su MD [address] [place] [address] PCP - General 03/14/14 03/15/14 Pb Su MD [address] [place] [address]39 PCP - General 03/09/14 03/13/14 Pb Su MD [address] [place] [address] PCP - General 03/02/14 03/08/14 Pb Su MD [address] [place] [address] PCP - General 02/28/14 03/01/14 Pb Su MD [address] [place] [address] PCP - General 02/25/14 02/27/14 Pb Su MD [address] [place] [address] PCP - General 02/23/14 02/24/14 Pb Su MD [address] [place] [address] PCP - General 02/17/14 02/22/14 Pb Su MD [address] [place] [address] PCP - General 11/02/13 02/16/14 Pb Su MD [address] [place] [address] PCP - General 09/30/13 11/01/13 Pb Su MD [address] [place] [address] PCP - General 06/10/13 09/29/13 documented as of this encounter
--- OUTSIDE RECORDS SUMMARY | 2024-11-15 05:11 | XMS_ITS | Encounter Summary ---
Author Organization [facility] Address [address] [place] [address]. [place], [place] [address] [place] [address] Care Team Providers Care Cereal Miller Name Role Phone Pb Su MD Primary [...] Pb Su MD Primary Care Provider [phone] Pb Su MD Primary Care Provider [phone] Pb Su MD Primary Care Provider [phone] Pb Su MD Primary Care Provider [phone] Pb Su MD Primary Care Provider [phone] Pb Su MD Primary Care Provider [phone] Sussy Zavala MD Primary Care Provider [phone] Fernie Erickson MD Primary Care Provider Unav ailable Encounter Details Date Type Department Care Team (Late st Contact Info) Description 05/31/2011 Abstract [facility] Physical Therapy [address] [place] [address] Pb Su MD [address] [place], [place] [address] Social History Tobacco Use Types Packs/Day Years [...] therapy documented in this encounter Care Teams Cereal Miller Relationship Specialty Start Date End Date Pb Su MD [address] [place], [place] [address] PCP - General 04/26/16 Pb Su MD [address] [place] [address] PCP - General 05/19/15 04/25/16 Pb Su MD [address] [place] [address] PCP - General 12/07/14 05/18/15 Pb Su MD [address] [place] [address] PCP - General 12/05/14 12/06/14 Pb Su MD [address] [place] [address] PCP - General 03/23/14 12/04/14 Pb Su MD [address] [place] [address] PCP - General 03/21/14 03/22/14 Pb Su MD [address] [place] [address] PCP - General 03/16/14 03/20/14 Pb Su MD [address] [place] [address] PCP - General 03/14/14 03/15/14 Pb Su MD [address] [place] [address] PCP - General 03/09/14 03/13/14 Pb Su MD [address] [place] [address] PCP - General 03/02/14 03/08/14 Pb Su MD [address] [place] [address] PCP - General 02/28/14 03/01/14 Pb Su MD [address] [place] [address] PCP - General 02/25/14 02/27/14 Pb Su MD [address] [place] [address] PCP - General 02/23/14 02/24/14 Pb Su MD [address] [place] [address]909 PCP - General 02/17/14 02/22/14 Pb Su MD [address] [place] [address] PCP - General 11/02/13 02/16/14 Pb Su MD [address] [place] [address]39 PCP - General 09/30/13 11/01/13 Pb Su MD [address] [place] [address] PCP - General 06/10/13 09/29/13 Pb Su MD [address] [place] [address] PCP - General 04/05/13 06/09/13 Pb Su MD [address] [place] [address] PCP - General 09/24/12 04/04/13 Pb Su MD [address] [place] [address] PCP - General 06/11/12 09/23/12 Pb Su MD [address] [place] [address] PCP - General 01/02/12 06/10/12 Pb Su MD [address] [place] [address] PCP - General 10/03/11 01/01/12 Sussy Zavala MD [facility] [address] [place] [address] PCP - General 08/05/11 10/02/11 Fernie Erickson MD [facility]. [facility] [address] [place] [address] PCP - General 10/06/10 08/04/11 documented as of this encounter
--- OUTSIDE RECORDS SUMMARY | 2024-11-15 05:11 | XMS_ITS | Encounter Summary ---
Author Organization [facility] Address [address] [place] [address]. [place], [place] [address] [place] [address] Care Team Providers Care Medicaid Billing Clerk Name Role Phone Pb Su MD [...] Pb Su MD Primary Care Provider [phone] Pb Su MD Primary Care Provider [phone] Pb Su MD Primary Care Provider [phone] Pb Su MD Primary Care Provider [phone] Pb Su MD Primary Care Provider [phone] Pb Su MD Primary Care Provider [phone] Encounter Details Date Type Department Care Team (Late st Contact Info) Description 11/11/[address] [facility] [place], [place] [id number] Pb Su MD [address] [place], [place] [address] Social History Tobacco Use Types Packs/Day Years Used Date Smoking Tobacco: Never Assessed Sex and Gender Information Value Date Recorded Sex Assigned at Not on file Legal Sex Male 7:22 PM CDT Gender Identity Not on file Sexual Orientation Not on file documented as of this encounter Plan of Treatment Not on file documented as of this encounter Visit Diagnoses Diagnosis Atrial fibrillation ([facility]) Atrial fibrillation documented in this encounter Care Teams Medicaid Billing Clerk Relationship Specialty Start Date End Date Pb Su MD [address] [place], [place] [address] PCP - General 04/26/16 Pb Su MD [address] [place], [place] [address] PCP - General 05/19/15 04/25/16 Pb Su MD [address] [place] [address] PCP - General 12/07/14 05/18/15 Pb Su MD [address] [place] [address]259 PCP - General 12/05/14 12/06/14 Pb Su MD [address] [place] [address] PCP - General 03/23/14 12/04/14 Pb Su MD [address] [place] [address]329 PCP - General 03/21/14 03/22/14 Pb Su MD [address] [place] [address]059 PCP - General 03/16/14 03/20/14 Pb Su MD [address] [place] [address] PCP - General 03/14/14 03/15/14 Pb Su MD [address] [place] [address] PCP - General 03/09/14 03/13/14 Pb Su MD [address] [place] [address] PCP - General 03/02/14 03/08/14 Pb Su MD [address] [place] [address] PCP - General 02/28/14 03/01/14 Pb Su MD [address] [place] [address] PCP - General 02/25/14 02/27/14 Pb Su MD [address] [place], [place] [address] PCP - General 02/23/14 02/24/14 Pb Su MD [address] [place], [place] [address] PCP - General 02/17/14 02/22/14 Pb Su MD [address] [place] [address] PCP - General 11/02/13 02/16/14 Pb Su MD [address] [place] [address] PCP - General 09/30/13 11/01/13 Pb Su MD [address] [place] [address] PCP - General 06/10/13 09/29/13 Pb Su MD [address] [place] [address] PCP - General 04/05/13 06/09/13 Pb Su MD [address] [place] [address] PCP - General 09/24/12 04/04/13 Pb Su MD [address] [place] [address] PCP - General 06/11/12 09/23/12 Pb Su MD [address] [place] [address] PCP - General 01/02/12 06/10/12 Pb Su MD [address] [place] [address] PCP - General 10/03/11 01/01/12 documented as of this encounter
--- OUTSIDE RECORDS SUMMARY | 2024-11-15 05:11 | XMS_ITS | Encounter Summary ---
Author Organization [facility] Address [address] [place] [address]. [place], [place] [address] [place] [address] Care Team Providers Care General Surgery Physician Assistant Name Role Phone Pb Su MD [...] Pb Su MD Primary Care Provider [phone] Pb Su MD Primary Care Provider [phone] Pb Su MD Primary Care Provider [phone] Encounter Details Date Type Department Care Team (Late st Contact Info) Description 02/01/2013 Abstract [facility] Multispecialty Care - [facility] [address] [place] [address] Seun Mak DO [address] [address] Social History Tobacco Use Types Packs/Day Years [...] Mak D.O.; Feb 01 2013 7:32PM (Author) D DIRECTOR documented in this encounter Plan of Treatment Not on file documented as of this encounter Visit Diagnoses Not on filedocumented in this encounter Care Teams General Surgery Physician Assistant Relationship Specialty Start Date End Date Pb Su MD [address] [place], [place] [address] PCP - General 04/26/16 Pb Su MD [address] [place] [address] PCP - General 05/19/15 04/25/16 Pb Su MD [address] [place], [place] [address] PCP - General 12/07/14 05/18/15 Pb Su MD [address] [place], [place] [address] PCP - General 12/05/14 12/06/14 Pb Su MD [address] [place], [place] [address] PCP - General 03/23/14 12/04/14 Pb Su MD [address] [place] [address] PCP - General 03/21/14 03/22/14 Pb Su MD [address] [place] [address] PCP - General 03/16/14 03/20/14 Pb Su MD [address] [place] [address] PCP - General 03/14/14 03/15/14 Pb Su MD [address] [place], [place] [address] PCP - General 03/09/14 03/13/14 Pb Su MD [address] [place] [address] PCP - General 03/02/14 03/08/14 Pb Su MD [address] [place] [address] PCP - General 02/28/14 03/01/14 Pb Su MD [address] [place] [address] PCP - General 02/25/14 02/27/14 Pb Su MD [address] [place] [address] PCP - General 02/23/14 02/24/14 Pb Su MD [address] [place] [address] PCP - General 02/17/14 02/22/14 Pb Su MD [address] [place] [address] PCP - General 11/02/13 02/16/14 Pb Su MD [address] [place] [address] PCP - General 09/30/13 11/01/13 Pb Su MD [address] [place], [place] [address] PCP - General 06/10/13 09/29/13 Pb Su MD [address] [place] [address] PCP - General 04/05/13 06/09/13 Pb Su MD [address] [place] [address] PCP - General 09/24/12 04/04/13 documented as of this encounter
--- OUTSIDE RECORDS SUMMARY | 2024-11-15 05:11 | XMS_ITS | Encounter Summary ---
Author Organization [facility] Address [address] [place] [address]. [place], [place] [address] [place] [address] Care Team Providers Care Beer Cooler Name Role Phone Pb Su MD Primary Care Provider [phone] Pb Su MD Primary Care Provider Pb [...] Pb Su MD Primary Care Provider +[phone] Pb Su MD Primary Care Provider +[phone] Encounter Details Date Type Department Care Team (Late st Contact Info) Description 09/24/[address] [facility] [address] [place] [address] Marquise Salinas MD Social History Tobacco Use [...] apnea documented in this encounter Care Teams Beer Cooler Relationship Specialty Start Date End Date Pb Su MD [address] [place], [place] [address] PCP - General 04/26/16 Pb Su MD [address] [facility] [place] [address] PCP - General 05/19/15 04/25/16 Pb Su MD [address] [place] [address] PCP - General 12/07/14 05/18/15 Pb Su MD [address] [place], [place] [address] PCP - General 12/05/14 12/06/14 bP Su MD [address] [place] [address] PCP - General 03/23/14 12/04/14 Pb Su MD [address] [place] [address] PCP - General 03/21/14 03/22/14 Pb Su MD [address] [place] [address] PCP - General 03/16/14 03/20/14 Pb Su MD [address] [place] [address] PCP - General 03/14/14 03/15/14 Pb Su MD [address] [place] [address] PCP - General 03/09/14 03/13/14 Pb Su MD [address] [place] [address] PCP - General 03/02/14 03/08/14 Pb Su MD [address] [place] [address] PCP - General 02/28/14 03/01/14 Pb Su MD [address] [place] [address] PCP - General 02/25/14 02/27/14 Pb Su MD [address] [place] [address] PCP - General 02/23/14 02/24/14 Pb Su MD [address] [place] [address] PCP - General 02/17/14 02/22/14 Pb Su MD [address] [place] [address] PCP - General 11/02/13 02/16/14 Pb Su MD [address] [place] [address] PCP - General 09/30/13 11/01/13 Pb Su MD [address] [place] [address] PCP - General 06/10/13 09/29/13 Pb Su MD [address] [place], [place] [address]39 PCP - General 04/05/13 06/09/13 Pb Su MD [address] [place] [address] PCP - General 09/24/12 04/04/13 documented as of this encounter
--- OUTSIDE RECORDS SUMMARY | 2024-11-15 05:11 | XMS_ITS | Encounter Summary ---
Author Organization [facility] Address [address] [place] [address]. [place], [place] [address] [place] [address] Care Team Providers Care Dairy Tester Name Role Phone Pb Su MD [...] Pb Su MD Primary Care Provider [phone]- [phone] Pb Su MD Primary Care Provider [phone] Encounter Details Date Type Department Care Team (Late st Contact Info) Description 04/05/2013 Abstract [facility] [address] [place] [address] Marquise Salinas MD Social History Tobacco Use [...] apnea documented in this encounter Care Teams Dairy Tester Relationship Specialty Start Date End Date Pb Su MD [address] [place], [place] [address] PCP - General 04/26/16 Pb Su MD [address] [place], [place] [address] PCP - General 05/19/15 04/25/16 Pb Su MD [address] [place], [place] [address] PCP - General 12/07/14 05/18/15 Pb Su MD [address] '[place], [place] [address]99 PCP - General 12/05/14 12/06/14 Pb Su MD [address] [place] [address] PCP - General 03/23/14 12/04/14 Pb Su MD [address] [place] [address] PCP - General 03/21/14 03/22/14 Pb Su MD [address] [place], [place] [address]609 PCP - General 03/16/14 03/20/14 Pb Su MD [address] [place], [place] [address] PCP - General 03/14/14 03/15/14 Pb Su MD [address] [place], [place] [address] PCP - General 03/09/14 03/13/14 Pb Su MD [address] [place] [address] PCP - General 03/02/14 03/08/14 Pb Su MD [address] [place] [address] PCP - General 02/28/14 03/01/14 Pb Su MD [address] [place] [address] PCP - General 02/25/14 02/27/14 Pb Su MD [address] [place] [address] PCP - General 02/23/14 02/24/14 Pb Su MD [address] [place] [address] PCP - General 02/17/14 02/22/14 Pb Su MD [address] [place] [address]599 PCP - General 11/02/13 02/16/14 Pb Su MD [address] [place] [address]259 PCP - General 09/30/13 11/01/13 Pb Su MD [address] [place] [address]779 PCP - General 06/10/13 09/29/13 Pb Su MD [address] [place], [place] [address] PCP - General 04/05/13 06/09/13 documented as of this encounter
--- OUTSIDE RECORDS SUMMARY | 2024-11-15 05:11 | XMS_ITS | Encounter Summary ---
Author Organization [facility] Address [address] [place] [address]. [place], [place] [id number] [place] [address] Care Team Providers Care Ep Specialist Name Role Phone Pb Su MD [...] Pb Su MD Primary Care Provider +[phone] Pb Su MD Primary Care Provider Encounter Details Date Type Department Care Team (Late st Contact Info) Description 03/09/[address] [facility] [address] [place] [address] Marquise [place] MD Social History Tobacco Use [...] (pediatric) documented in this encounter Care Teams Ep Specialist Relationship Specialty Start Date End Date Pb Su MD [address] [place], [place] [id number] PCP - General 04/26/16 Pb uS MD [address] [place], [place] [id number] PCP - General 05/19/15 04/25/16 Pb Su MD [address] [place], [place] [id number] PCP - General 12/07/14 05/18/15 Pb Su MD [address] [place] [address] PCP - General 12/05/14 12/06/14 Pb Su MD [address] [place] [address] PCP - General 03/23/14 12/04/14 Pb Su MD [address] [place] 37[address]09 PCP - General 03/21/14 03/22/14 Pb Su MD [address] [place] 7[address]29 PCP - General 03/16/14 03/20/14 Pb Su MD [address] [place] 76[address]49 PCP - General 03/14/14 03/15/14 Pb Su MD [address] [place] [address] PCP - General 03/09/14 03/13/14 Pb Su MD [address] [place] 466009 PCP - General 03/02/14 03/08/14 Pb Su MD [address] [place] [address] PCP - General 02/28/14 03/01/14 Pb Su MD [address] [place] [address]79 PCP - General 02/25/14 02/27/14 Pb Su MD [address] [place] 9[address]159 PCP - General 02/23/14 02/24/14 Pb Su MD [address] [place] 315119 PCP - General 02/17/14 02/22/14 Pb Su MD [address] [place] 7[address]99 PCP - General 11/02/13 02/16/14 Pb Su MD [address] [place] 0[address]29 PCP - General 09/30/13 11/01/13 Pb Su MD [address] [place] 205009 PCP - General 06/10/13 09/29/13 Pb Su MD [address] [place] [address] PCP - General 04/05/13 06/09/13 Pb Su MD [address] [place] [address] PCP - General 09/24/12 04/04/13 Pb Su MD [address] [place] 188149 PCP - General 06/11/12 09/23/12 Pb Su MD [address] [place] [address] PCP - General 01/02/12 06/10/12 documented as of this encounter
--- OUTSIDE RECORDS SUMMARY | 2024-11-15 05:11 | XMS_ITS | Encounter Summary ---
Author Organization [facility] Address [address] [place] [address]. [place], [place] [address] [place] [address] Care Team Providers Care Fabricator Special Items Name Role Phone Pb Su MD Primary Care Provider [phone] Pb Su MD Primary Care Provider bP [...] Pb Su MD Primary Care Provider +[phone] Pb Su MD Primary Care Provider Pb Su MD Primary Care Provider Encounter Details Date Type Department Care Team (Late st Contact Info) Description 01/23/[address] [facility] [address] [place] [address] Marquise [place] MD Social History Tobacco Use [...] (pediatric) documented in this encounter Care Teams Fabricator Special Items Relationship Specialty Start Date End Date Pb Su MD [address] [place], [place] [id number] PCP - General 04/26/16 Pb Su MD [address] [place], [place] 44053269 PCP - General 05/19/15 04/25/16 Pb Su MD [address] [place], [place] 04708269 PCP - General 12/07/14 05/18/15 Pb Su MD [address] [place] [address] PCP - General 12/05/14 12/06/14 Pb Su MD [address] [place] [address] PCP - General 03/23/14 12/04/14 Pb Su MD [address] [place] 0[address]89 PCP - General 03/21/14 03/22/14 Pb Su MD [address] [place] 00[address]19 PCP - General 03/16/14 03/20/14 Pb Su MD [address] [place] 445819 PCP - General 03/14/14 03/15/14 Pb Su MD [address] [place] [address] PCP - General 03/09/14 03/13/14 Pb Su MD [address] [place] 09[address]09 PCP - General 03/02/14 03/08/14 Pb Su MD [address] [place] [address] PCP - General 02/28/14 03/01/14 Pb Su MD [address] [place] 455459 PCP - General 02/25/14 02/27/14 Pb Su MD [address] [place] 794079 PCP - General 02/23/14 02/24/14 Pb Su MD [address] [place] 348949 PCP - General 02/17/14 02/22/14 Pb Su MD [address] [place] 976799 PCP - General 11/02/13 02/16/14 Pb Su MD [address] [place] 204749 PCP - General 09/30/13 11/01/13 Pb Su MD [address] [place] 195389 PCP - General 06/10/13 09/29/13 Pb Su MD [address] [place] [address] PCP - General 04/05/13 06/09/13 Pb Su MD [address] [place] [address] PCP - General 09/24/12 04/04/13 Pb Su MD [address] [place] [address]889 PCP - General 06/11/12 09/23/12 Pb Su MD [address] [place] [address] PCP - General 01/02/12 06/10/12 documented as of this encounter
--- OUTSIDE RECORDS SUMMARY | 2024-11-15 05:11 | XMS_ITS | Encounter Summary ---
Author Organization [facility] Address [address] [place] [address]. [place], [place] [address] [place] [address] Care Team Providers Care Landscape Architect And Planner Name Role Phone Pb Su MD Primary [...] Pb Su MD Primary Care Provider +[phone] Pb Su MD Primary Care Provider Pb Su MD Primary Care Provider +1- [phone] Encounter Details Date Type Department Care Team (Latest Contact Info) Description 08/28/2012 Abstract [facility] Social History [...] in this encounter Care Teams Landscape Architect And Planner Relationship Specialty Start Date End Date Pb Su MD [address] [place], [place] [id number] PCP - General 04/26/16 Pb Su MD [address] [place] [address]99 PCP - General 05/19/15 04/25/16 Pb Su MD [address] [place] 147189 PCP - General 12/07/14 05/18/15 Pb Su MD [address] [place] 8[address]19 PCP - General 12/05/14 12/06/14 Pb Su MD [address] [place] [address] PCP - General 03/23/14 12/04/14 Pb Su MD [address] [place] 7[address]39 PCP - General 03/21/14 03/22/14 Pb Su MD [address] [place] 108109 PCP - General 03/16/14 03/20/14 Pb Su MD [address] [place] 952369 PCP - General 03/14/14 03/15/14 Pb Su MD [address] [place] 640869 PCP - General 03/09/14 03/13/14 Pb Su MD [address] [place] 969639 PCP - General 03/02/14 03/08/14 Pb Su MD [address] [place] 6[address]359 PCP - General 02/28/14 03/01/14 Pb Su MD [address] [place] [address] PCP - General 02/25/14 02/27/14 Pb Su MD [address] [place] 579609 PCP - General 02/23/14 02/24/14 Pb Su MD [address] [place] 227059 PCP - General 02/17/14 02/22/14 Pb Su MD [address] [place] 14[address] PCP - General 11/02/13 02/16/14 Pb Su MD [address] [place] 8[address]99 PCP - General 09/30/13 11/01/13 Pb Su MD [address] [place] 7[address]39 PCP - General 06/10/13 09/29/13 Pb Su MD [address] [place] 6[address]19 PCP - General 04/05/13 06/09/13 Pb Su MD [address] [place] [address] PCP - General 09/24/12 04/04/13 Pb Su MD [address] [place] [address] PCP - General 06/11/12 09/23/12 documented as of this encounter
--- OUTSIDE RECORDS SUMMARY | 2024-11-15 05:11 | XMS_ITS | Encounter Summary ---
Author Organization [facility] Address [address] [place] [address]. [place], [place] [address] [place] [address] Care Team Providers Care Radio Commentator Name Role Phone Pb Su MD Primary [...] Pb Su MD Primary Care Provider +1- [phone] Pb Su MD Primary Care Provider +- [phone] Pb Su MD Primary Care Provider +- [phone] Encounter Details Date Type Department Care Team (Latest Contact Info) Description 09/24/2012 Abstract [facility] Medical Group [...] on filedocumented in this encounter Care Teams Radio Commentator Relationship Specialty Start Date End Date Pb Su MD [address] [place], [place] 16459269 PCP - General 04/26/16 Pb Su MD [address] [place] [address] PCP - General 05/19/15 04/25/16 Pb Su MD [address] [place] 29[address] PCP - General 12/07/14 05/18/15 Pb Su MD [address] [place] 208389 PCP - General 12/05/14 12/06/14 Pb Su MD [address] [place] [address] PCP - General 03/23/14 12/04/14 Pb Su MD [address] [place] [address] PCP - General 03/21/14 03/22/14 Pb Su MD [address] [place] 782589 PCP - General 03/16/14 03/20/14 Pb Su MD [address] [place] 16[address]99 PCP - General 03/14/14 03/15/14 Pb Su MD [address] [place] 7[address]379 PCP - General 03/09/14 03/13/14 Pb Su MD [address] [place] 245669 PCP - General 03/02/14 03/08/14 Pb Su MD [address] [place] 616339 PCP - General 02/28/14 03/01/14 Pb Su MD [address] [place] [address] PCP - General 02/25/14 02/27/14 Pb Su MD [address] [place] [address] PCP - General 02/23/14 02/24/14 Pb Su MD [address] [place] 325289 PCP - General 02/17/14 02/22/14 Pb Su MD [address] [place] 395819 PCP - General 11/02/13 02/16/14 Pb Su MD [address] [place] 29[address]69 PCP - General 09/30/13 11/01/13 Pb Su MD [address] [place] 246229 PCP - General 06/10/13 09/29/13 Pb Su MD [address] [place] 7[address]69 PCP - General 04/05/13 06/09/13 Pb Su MD [address] [place] 780199 PCP - General 09/24/12 04/04/13 documented as of this encounter
--- OUTSIDE RECORDS SUMMARY | 2024-11-15 05:11 | XMS_ITS | Encounter Summary ---
Author Organization [facility] Address [address] [place] [address]. [place], [place] [address] [place] [address] Care Team Providers Care Seamer Panty Hose Name Role Phone Pb Su MD Primary [...] Pb Su MD Primary Care Provider +1- [phone] Pb Su MD Primary Care Provider +1- [phone] Pb Su MD Primary Care Provider +1- [phone] Pb Su MD Primary Care Provider +1- [phone] Encounter Details Date Type Department Care Team (Late st Contact Info) Description 08/18/2012 Abstract [facility] Medical Group Family Medicine - [place] [address] [place] [id number] Pb Su MD [address] [place] [address] Social History Tobacco Use Types Packs/Day Years [...] Tablet; TAKE 1 TABLET DAILY DIRECTED; Therapy: [id number] to (Evaluate:[id number]); Last Rx:[id number] Signatures Electronically signed by : Pb Su M.D.; Aug 20 2012 8:29PM (Author) INE INSPECTOR documented in this encounter Plan of Treatment Not on file documented as of this encounter Visit Diagnoses Not on filedocumented in this encounter Care Teams Seamer Panty Hose Relationship Specialty Start Date End Date Pb Su MD [address] [place] [address] PCP - General 04/26/16 Pb Su MD [address] [place] 132829 PCP - General 05/19/15 04/25/16 Pb Su MD [address] [place] 462309 PCP - General 12/07/14 05/18/15 Pb Su MD [address] [place] 847909 PCP - General 12/05/14 12/06/14 Pb Su MD [address] [place] 28153269 PCP - General 03/23/14 12/04/14 Pb Su MD [address] [place] 7[address] PCP - General 03/21/14 03/22/14 Pb Su MD [address] [place] 819859 PCP - General 03/16/14 03/20/14 Pb Su MD [address] [place] 29[address]19 PCP - General 03/14/14 03/15/14 Pb Su MD [address] [place] 392759 PCP - General 03/09/14 03/13/14 Pb Su MD [address] [place] [address] PCP - General 03/02/14 03/08/14 Pb Su MD [address] [place] 346119 PCP - General 02/28/14 03/01/14 Pb Su MD [address] [place] 144239 PCP - General 02/25/14 02/27/14 Pb Su MD [address] [place] 95[address]69 PCP - General 02/23/14 02/24/14 Pb Su MD [address] [place] 409459 PCP - General 02/17/14 02/22/14 Pb Su MD [address] [place] [address] PCP - General 11/02/13 02/16/14 Pb Su MD [address] [place] [address] PCP - General 09/30/13 11/01/13 Pb Su MD [address] [place] [address] PCP - General 06/10/13 09/29/13 Pb Su MD [address] [place] [address]39 PCP - General 04/05/13 06/09/13 Pb Su MD [address] [place] 2[address] PCP - General 09/24/12 04/04/13 Pb Su MD [address] [place] [address] PCP - General 06/11/12 09/23/12 documented as of this encounter
--- OUTSIDE RECORDS SUMMARY | 2024-11-15 05:11 | XMS_ITS | Encounter Summary ---
Author Organization [facility] Address [address] [place] [address]. [place], [place] [address] [place] [address] Care Team Providers Care Easter Bunny Name Role Phone Pb Su MD Primary [...] Pb Su MD Primary Care Provider [phone] Pb Su MD Primary Care Provider +[phone] Pb Su MD Primary Care Provider +[phone] Pb Su MD Primary Care Provider +[phone] Pb Su MD Primary Care Provider +[phone] Sussy Zavala MD Primary Care Provider [phone] Fernie Erickson MD Primary Care Provider Unav ailable Encounter Details Date Type Department Care Team (Late st Contact Info) Description 03/07/2009 Abstract [facility] [address] [place], [place] [id number] Pb Su MD [address] [place], [place] 7[address]289 Social History Tobacco Use Types Packs/Day Years [...] on filedocumented in this encounter Care Teams Easter Bunny Relationship Specialty Start Date End Date Pb Su MD [address] [place], [place] 5[address]39 PCP - General 04/26/16 Pb Su MD [address] [place], [place] 284049 PCP - General 05/19/15 04/25/16 Pb Su MD [address] [place] [address] PCP - General 12/07/14 05/18/15 Pb Su MD [address] [place] [address] PCP - General 12/05/14 12/06/14 Pb Su MD [address] [place] [address] PCP - General 03/23/14 12/04/14 Pb Su MD [address] [place] [address] PCP - General 03/21/14 03/22/14 Pb Su MD [address] [place] [address] PCP - General 03/16/14 03/20/14 Pb Su MD [address] [place] 896409 PCP - General 03/14/14 03/15/14 Pb Su MD [address] [place] [address]659 PCP - General 03/09/14 03/13/14 Pb Su MD [address] [place] [address] PCP - General 03/02/14 03/08/14 Pb Su MD [address] [place] [address] PCP - General 02/28/14 03/01/14 Pb Su MD [address] [place] [address] PCP - General 02/25/14 02/27/14 Pb Su MD [address] [place] [address] PCP - General 02/23/14 02/24/14 Pb Su MD [address] [place] [address] PCP - General 02/17/14 02/22/14 Pb Su MD [address] [place] [address]139 PCP - General 11/02/13 02/16/14 Pb Su MD [address] [place], [place] 4[address]39 PCP - General 09/30/13 11/01/13 Pb Su MD [address] [place] [address] PCP - General 06/10/13 09/29/13 Pb Su MD [address] [place] [address]239 PCP - General 04/05/13 06/09/13 Pb Su MD [address] [place] [address] PCP - General 09/24/12 04/04/13 Pb Su MD [address] [place] [address] PCP - General 06/11/12 09/23/12 Pb Su MD [address] [place] [address] PCP - General 01/02/12 06/10/12 Pb Su MD [address] [place] [address] PCP - General 10/03/11 01/01/12 Sussy Zavala MD [facility] [address] [place] [address] PCP - General 08/05/11 10/02/11 Fernie Erickson MD [facility]. [facility] [address] [place] [address] PCP - General 10/06/10 08/04/11 documented as of this encounter
--- OUTSIDE RECORDS SUMMARY | 2024-11-15 05:11 | XMS_ITS | Encounter Summary ---
Author Organization [facility] Address [address] [place] [address]. [place], [place] [address] [place] [address] Care Team Providers Care Iron Carrier Name Role Phone Pb Su MD Primary [...] Pb Su MD Primary Care Provider +[phone] Pb Su MD Primary Care Provider +[phone] Pb Su MD Primary Care Provider +[phone] Pb Su MD Primary Care Provider +[phone] Pb Su MD Primary Care Provider +1-6 [phone] Pb Su MD Primary Care Provider +[phone] Sussy Zavala MD Primary Care Provider [phone] Fernie Erickson MD Primary Care Provider Unav ailable Encounter Details Date Type Department Care Team (Late st Contact Info) Description 08/13/2010 Abstract [facility] [address] [place] [id number] Pb Su MD [address] [place], [place] 4[address] Social History Tobacco Use Types Packs/Day Years [...] on filedocumented in this encounter Care Teams Iron Carrier Relationship Specialty Start Date End Date Pb Su MD [address] [place], [place] 9[address]809 PCP - General 04/26/16 Pb Su MD [address] [place], [place] 40[address]69 PCP - General 05/19/15 04/25/16 Pb uS MD [address] [place] [address] PCP - General 12/07/14 05/18/15 Pb Su MD [address] [place] [address] PCP - General 12/05/14 12/06/14 Pb Su MD [address] [place] [address] PCP - General 03/23/14 12/04/14 Pb Su MD [address] [place] [address] PCP - General 03/21/14 03/22/14 Pb Su MD [address] [place] [address] PCP - General 03/16/14 03/20/14 Pb Su MD [address] [place] [address] PCP - General 03/14/14 03/15/14 Pb Su MD [address] [place], [place] [address]689 PCP - General 03/09/14 03/13/14 Pb Su MD [address] [place] [address] PCP - General 03/02/14 03/08/14 Pb Su MD [address] [place] [address] PCP - General 02/28/14 03/01/14 Pb Su MD [address] [place] [address] PCP - General 02/25/14 02/27/14 Pb Su MD [address] [place] [address] PCP - General 02/23/14 02/24/14 Pb Su MD [address] [place] [address] PCP - General 02/17/14 02/22/14 Pb Su MD [address] [place] [address] PCP - General 11/02/13 02/16/14 Pb Su MD [address] [place], [place] 40[address]29 PCP - General 09/30/13 11/01/13 Pb Su MD [address] [place] [address] PCP - General 06/10/13 09/29/13 Pb Su MD [address] [place], [place] [address]69 PCP - General 04/05/13 06/09/13 Pb Su MD [address] [place] [address] PCP - General 09/24/12 04/04/13 Pb Su MD [address] [place] [address] PCP - General 06/11/12 09/23/12 Pb Su MD [address] [place] [address] PCP - General 01/02/12 06/10/12 Pb Su MD [address] [place] [address]379 PCP - General 10/03/11 01/01/12 Sussy Zavala MD [facility] [address] [place] [address] PCP - General 08/05/11 10/02/11 Fernie Erickson MD [facility]. [facility] [address] [place] [address] PCP - General 10/06/10 08/04/11 documented as of this encounter
--- OUTSIDE RECORDS SUMMARY | 2024-11-15 05:11 | XMS_ITS | Encounter Summary ---
Author Organization [facility] Address [address] [place] [address]. [place], [place] [address] [place] [address] Care Team Providers Care Algebra Tutor Name Role Phone Pb Su MD Primary Care Provider [phone] Pb Su MD Primary Care Provider Pb [...] Pb Su MD Primary Care Provider +[phone] Pb Su MD Primary Care Provider +[phone] Pb Su MD Primary Care Provider +1-6 [phone] Pb Su MD Primary Care Provider +[phone] Pb Su MD Primary Care Provider +[phone] Pb Su MD Primary Care Provider +[phone] Sussy Zavala MD Primary Care Provider +[phone] Fernie Erickson MD Primary Care Provider Unav ailable Encounter Details Date Type Department Care Team (Late st Contact Info) Description 10/06/2009 Abstract [facility] [address] [place], [place] [id number] Pb Su MD [address] [place], [place] [address] Social History Tobacco Use Types Packs/Day Years [...] on filedocumented in this encounter Care Teams Algebra Tutor Relationship Specialty Start Date End Date Pb Su MD [address] [place], [place] 97[address] PCP - General 04/26/16 Pb Su MD [address] [place] [address]0039 PCP - General 05/19/15 04/25/16 Pb Su MD [address] [place] [address] PCP - General 12/07/14 05/18/15 Pb Su MD [address] [place] [address] PCP - General 12/05/14 12/06/14 Pb Su MD [address] [place] [address] PCP - General 03/23/14 12/04/14 Pb Su MD [address] [place] [address] PCP - General 03/21/14 03/22/14 Pb Su MD [address] [place] [address] PCP - General 03/16/14 03/20/14 Pb Su MD [address] [place] [address] PCP - General 03/14/14 03/15/14 Pb Su MD [address] [place] [address] PCP - General 03/09/14 03/13/14 Pb Su MD [address] [place] [address] PCP - General 03/02/14 03/08/14 Pb Su MD [address] [place] [address] PCP - General 02/28/14 03/01/14 Pb Su MD [address] [place] [address] PCP - General 02/25/14 02/27/14 Pb Su MD [address] [place] [address] PCP - General 02/23/14 02/24/14 Pb Su MD [address] [place], [place] [id number] PCP - General 02/17/14 02/22/14 Pb Su MD [address] [place], [place] [address] PCP - General 11/02/13 02/16/14 Pb Su MD [address] [place], [place] [address] PCP - General 09/30/13 11/01/13 Pb Su MD [address] [place] [address] PCP - General 06/10/13 09/29/13 Pb Su MD [address] [place], [place] [address] PCP - General 04/05/13 06/09/13 Pb Su MD [address] [place] [address] PCP - General 09/24/12 04/04/13 Pb Su MD [address] [place] [address] PCP - General 06/11/12 09/23/12 Pb Su MD [address] [place] [address] PCP - General 01/02/12 06/10/12 Pb Su MD [address] [place], [place] [address] PCP - General 10/03/11 01/01/12 Sussy Zavala MD [facility] [address] [place] [address] PCP - General 08/05/11 10/02/11 Fernie Erickson MD [facility]. [facility] [address] [place] [address] PCP - General 10/06/10 08/04/11 documented as of this encounter
--- OUTSIDE RECORDS SUMMARY | 2024-11-15 05:11 | XMS_ITS | Encounter Summary ---
Author Organization [facility] Address [address] [place] [address]. [place], [place] [address] [place] [address] Care Team Providers Care Glass Presser Name Role Phone Pb Su MD Primary [...] Pb Su MD Primary Care Provider [phone] Pb Su MD Primary Care Provider [phone] Pb Su MD Primary Care Provider +[phone] Pb Su MD Primary Care Provider [phone] Pb Su MD Primary Care Provider [phone] Sussy Zavala MD Primary Care Provider [phone] Fernie Erickson MD Primary Care Provider Unav ailable Encounter Details Date Type Department Care Team (Late st Contact Info) Description 12/05/2009 Abstract [facility] [address] [place], [place] [id number] Pb Su MD [address] [place], [place] 6[address] Social History Tobacco Use Types Packs/Day Years [...] on filedocumented in this encounter Care Teams Glass Presser Relationship Specialty Start Date End Date Pb Su MD [address] [place], [place] 668169 PCP - General 04/26/16 Pb Su MD [address] [place], [place] 5[address]199 PCP - General 05/19/15 04/25/16 Pb Su MD [address] [place] [address] PCP - General 12/07/14 05/18/15 Pb Su MD [address] [place] [address] PCP - General 12/05/14 12/06/14 Pb Su MD [address] [place] [address] PCP - General 03/23/14 12/04/14 Pb Su MD [address] [place] [address] PCP - General 03/21/14 03/22/14 Pb Su MD [address] [place] [address] PCP - General 03/16/14 03/20/14 Pb Su MD [address] [place], [place] [address] PCP - General 03/14/14 03/15/14 Pb Su MD [address] [place] [address]179 PCP - General 03/09/14 03/13/14 Pb Su MD [address] [place] [address] PCP - General 03/02/14 03/08/14 Pb Su MD [address] [place] [address] PCP - General 02/28/14 03/01/14 Pb Su MD [address] [place] [address] PCP - General 02/25/14 02/27/14 Pb Su MD [address] [place] [address] PCP - General 02/23/14 02/24/14 Pb Su MD [address] [place] 97[address] PCP - General 02/17/14 02/22/14 Pb Su MD [address] [place] 8[address] PCP - General 11/02/13 02/16/14 Pb Su MD [address] [place] [address] PCP - General 09/30/13 11/01/13 Pb Su MD [address] [place] [address] PCP - General 06/10/13 09/29/13 Pb Su MD [address] [place] 8[address]299 PCP - General 04/05/13 06/09/13 Pb Su MD [address] [place] [address] PCP - General 09/24/12 04/04/13 Pb Su MD [address] [place] [address] PCP - General 06/11/12 09/23/12 Pb Su MD [address] [place] [address] PCP - General 01/02/12 06/10/12 Pb Su MD [address] [place], [place] 130739 PCP - General 10/03/11 01/01/12 Sussy Zavala MD [facility] [address] [place] [address] PCP - General 08/05/11 10/02/11 Fernie Erickson MD [facility]. [facility] [address] [place] [address] PCP - General 10/06/10 08/04/11 documented as of this encounter
--- OUTSIDE RECORDS SUMMARY | 2024-11-15 05:11 | XMS_ITS | Encounter Summary ---
Author Organization [facility] Address [address] [place] [address]. [place], [place] [address] [place] [address] Care Team Providers Care Hair Cutter Name Role Phone Pb Su MD Primary [...] Team (Latest Contact Info) Description 06/13/2013 Abstract [facility] Medical [facility] [...] Verified Results Vitamin D 25 - Hydroxy [id number] 10:05AM Pb Su Test Name Result Flag Reference Vitamin D 25-Hydroxy 28 NG/ML L 30-100 INTERPRETATION DEFICIENT <20 INSUFFICIENT 20-30 SUFFICIENT 30-100 POTENTIAL INTOXICATION >100 TESTING PERFORMED AT [facility], A MEMBER OF THE [facility]. [employer] KILN documented in this encounter Plan of Treatment Not on file documented as of this encounter Visit Diagnoses Not on filedocumented in this encounter Care Teams Hair Cutter Relationship Specialty Start Date End Date Pb Su MD [address] [place], [place] [id number] PCP - General 04/26/16 Pb Su MD [address] [place], [place] [address] PCP - General 05/19/15 04/25/16 Pb Su MD [address] [place], [place] [address] PCP - General 12/07/14 05/18/15 Pb Su MD [address] [place] [address] PCP - General 12/05/14 12/06/14 Pb Su MD [address] [place] [address] PCP - General 03/23/14 12/04/14 Pb Su MD [address] [place] 6[address]99 PCP - General 03/21/14 03/22/14 Pb Su MD [address] [place] 9[address] PCP - General 03/16/14 03/20/14 Pb Su MD [address] [place] [address] PCP - General 03/14/14 03/15/14 Pb Su MD [address] [place] 576189 PCP - General 03/09/14 03/13/14 Pb Su MD [address] [place], [place] 402849 PCP - General 03/02/14 03/08/14 Pb Su MD [address] [place] 69[address]89 PCP - General 02/28/14 03/01/14 Pb Su MD [address] [place] 9[address]69 PCP - General 02/25/14 02/27/14 Pb Su MD [address] [place] [address] PCP - General 02/23/14 02/24/14 Pb Su MD [address] [place], [place] 8[address]159 PCP - General 02/17/14 02/22/14 Pb Su MD [address] [place] [address]649 PCP - General 11/02/13 02/16/14 Pb Su MD [address] [place] 900779 PCP - General 09/30/13 11/01/13 Pb Su MD [address] [place] 2[address] PCP - General 06/10/13 09/29/13 documented as of this encounter
--- OUTSIDE RECORDS SUMMARY | 2024-11-15 05:11 | XMS_ITS | Encounter Summary ---
Author Organization [facility] Address [address] [place] [address]. [place], [place] [address] [place] [address] Care Team Providers Care Assistant Cook Name Role Phone Pb Su MD Primary [...] Pb Su MD Primary Care Provider [phone] Pb Su MD Primary Care Provider [phone] Pb Su MD Primary Care Provider [phone] Pb Su MD Primary Care Provider [phone] Pb Su MD Primary Care Provider [phone] Sussy Zavala MD Primary Care Provider [phone] Fernie Erickson MD Primary Care Provider Unav ailable Encounter Details Date Type Department Care Team (Late st Contact Info) Description 08/27/2007 Abstract [facility] [address] [place], [place] [id number] Pb uS MD [address] [place], [place] 300[address]89 Social History Tobacco Use Types Packs/Day Years [...] filedocumented in this encounter Care Teams Assistant Cook Relationship Specialty Start Date End Date Pb Su MD [address] [place], [place] 60[address]99 PCP - General 04/26/16 Pb Su MD [address] [place] 407159 PCP - General 05/19/15 04/25/16 Pb Su MD [address] [place] [address] PCP - General 12/07/14 05/18/15 Pb Su MD [address] [place] [address] PCP - General 12/05/14 12/06/14 Pb Su MD [address] [place] [address] PCP - General 03/23/14 12/04/14 Pb Su MD [address] [place] [address] PCP - General 03/21/14 03/22/14 Pb Su MD [address] [place] [address] PCP - General 03/16/14 03/20/14 Pb Su MD [address] [place] 249169 PCP - General 03/14/14 03/15/14 Pb Su MD [address] [place] 9[address]009 PCP - General 03/09/14 03/13/14 Pb Su MD [address] [place] [address] PCP - General 03/02/14 03/08/14 Pb Su MD [address] [place] [address] PCP - General 02/28/14 03/01/14 Pb Su MD [address] [place] [address] PCP - General 02/25/14 02/27/14 Pb Su MD [address] [place] [address] PCP - General 02/23/14 02/24/14 Pb Su MD [address] [place] 70[address]99 PCP - General 02/17/14 02/22/14 Pb Su MD [address] [place] [address]689 PCP - General 11/02/13 02/16/14 Pb Su MD [address] [place] [address]559 PCP - General 09/30/13 11/01/13 Pb Su MD [address] [place] [address] PCP - General 06/10/13 09/29/13 Pb Su MD [address] [place] 411379 PCP - General 04/05/13 06/09/13 bP Su MD [address] [place] [address] PCP - General 09/24/12 04/04/13 Pb Su MD [address] [place] [address] PCP - General 06/11/12 09/23/12 Pb Su MD [address] [place] [address] PCP - General 01/02/12 06/10/12 Pb Su MD [address] [place] 67[address] PCP - General 10/03/11 01/01/12 Sussy Zavala MD [facility] [address] [place] [address] PCP - General 08/05/11 10/02/11 Fernie Erickson MD [facility]. [facility] [address] [place] [address] PCP - General 10/06/10 08/04/11 documented as of this encounter
--- OUTSIDE RECORDS SUMMARY | 2024-11-15 05:11 | XMS_ITS | Encounter Summary ---
Author Organization [facility] Address [address] [place] [address]. [place], [place] [address] [place] [address] Care Team Providers Care Wireless Sales Associate Name Role Phone Pb Su MD Primary Care Provider [phone] Pb Su MD Primary Care Provider Pb [...] Pb Su MD Primary Care Provider [phone] Pb Su MD Primary Care Provider [phone] Pb Su MD Primary Care Provider [phone] Pb Su MD Primary Care Provider [phone] Pb Su MD Primary Care Provider [phone] Pb Su MD Primary Care Provider [phone] Sussy Zavala MD Primary Care Provider [phone] Fernie Erickson MD Primary Care Provider Unav ailable Encounter Details Date Type Department Care Team (Late st Contact Info) Description 10/06/2010 Abstract [facility] [place] [address] Delilah Biggs MD Social History Tobacco Use [...] this encounter Visit Diagnoses Diagnosis Atrial fibrillation ([facility]) Atrial fibrillation documented in this encounter Care Teams Wireless Sales Associate Relationship Specialty Start Date End Date Pb Su MD [address] [place], [place] [address]179 PCP - General 04/26/16 bP Su MD [address] [place] [address] PCP - General 05/19/15 04/25/16 Pb Su MD [address] [place] [address] PCP - General 12/07/14 05/18/15 Pb Su MD [address] [place], [place] 962439 PCP - General 12/05/14 12/06/14 Pb Su MD [address] [place], [place] 47[address] PCP - General 03/23/14 12/04/14 Pb Su MD [address] [place] [address]29 PCP - General 03/21/14 03/22/14 Pb uS MD [address] [place], [place] [address] PCP - General 03/16/14 03/20/14 Pb Su MD [address] [place] [address] PCP - General 03/14/14 03/15/14 Pb Su MD [address] [place] 99[address]69 PCP - General 03/09/14 03/13/14 Pb Su MD [address] [place] [address] PCP - General 03/02/14 03/08/14 Pb Su MD [address] [place] 2[address] PCP - General 02/28/14 03/01/14 Pb Su MD [address] [place] 77[address]89 PCP - General 02/25/14 02/27/14 Pb Su MD [address] [place] 6[address]39 PCP - General 02/23/14 02/24/14 Pb Su MD [address] [place] 39[address]39 PCP - General 02/17/14 02/22/14 Pb Su MD [address] [place] [address] PCP - General 11/02/13 02/16/14 Pb Su MD [address] [place] [address] PCP - General 09/30/13 11/01/13 Pb Su MD [address] [place] [address] PCP - General 06/10/13 09/29/13 Pb Su MD [address] [place] [address] PCP - General 04/05/13 06/09/13 Pb Su MD [address] [place] [address] PCP - General 09/24/12 04/04/13 Pb Su MD [address] [place] [address]369 PCP - General 06/11/12 09/23/12 Pb Su MD [address] [place] [address]219 PCP - General 01/02/12 06/10/12 Pb Su MD [address] [place] [address]689 PCP - General 10/03/11 01/01/12 Sussy Zavala MD Three [facility]. [facility] [address] [place] [address] PCP - General 08/05/11 10/02/11 Fernie Erickson MD Three [facility]. [facility] [address] [place] [address] PCP - General 10/06/10 08/04/11 documented as of this encounter
--- OUTSIDE RECORDS SUMMARY | 2024-11-15 05:11 | XMS_ITS | Encounter Summary ---
Author Organization [facility] Address [address] [place] [address]. [place], [place] [address] [place] [address] Care Team Providers Care Plastic Cutter Name Role Phone Pb Su MD [...] Pb Su MD Primary Care Provider [phone] Pb Su MD Primary Care Provider [phone] Pb Su MD Primary Care Provider [phone] Pb Su MD Primary Care Provider [phone] Pb Su MD Primary Care Provider [phone] Sussy Zavala MD Primary Care Provider [phone] Encounter Details Date Type Department Care Team (Late st Contact Info) Description 08/05/[address] [facility] [address] [place] [address] Marquise Salinas MD Social History Tobacco Use [...] apnea documented in this encounter Care Teams Plastic Cutter Relationship Specialty Start Date End Date Pb Su MD [address] [place], [place] [address] PCP - General 04/26/16 Pb Su MD [address] [place], [place] 23759[address] PCP - General 05/19/15 04/25/16 Pb Su MD [address] [place], [place] 24[address] PCP - General 12/07/14 05/18/15 Pb Su MD [address] [place] [address] PCP - General 12/05/14 12/06/14 Pb Su MD [address] [place] [address] PCP - General 03/23/14 12/04/14 Pb Su MD [address] [place] [address] PCP - General 03/21/14 03/22/14 Pb Su MD [address] [place], [place] 5[address]29 PCP - General 03/16/14 03/20/14 Pb Su MD [address] [place] [address]409 PCP - General 03/14/14 03/15/14 Pb Su MD [address] [place] [address]199 PCP - General 03/09/14 03/13/14 Pb Su MD [address] [place] 8[address]99 PCP - General 03/02/14 03/08/14 Pb Su MD [address] [place] [address] PCP - General 02/28/14 03/01/14 Pb Su MD [address] [place] [address] PCP - General 02/25/14 02/27/14 Pb Su MD [address] [place] [address] PCP - General 02/23/14 02/24/14 Pb Su MD [address] [place] [address]299 PCP - General 02/17/14 02/22/14 Pb Su MD [address] [place] [address]139 PCP - General 11/02/13 02/16/14 Pb Su MD [address] [place] [address]329 PCP - General 09/30/13 11/01/13 Pb Su MD [address] [place] 6[address] PCP - General 06/10/13 09/29/13 Pb Su MD [address] [place] [address] PCP - General 04/05/13 06/09/13 Pb Su MD [address] [place] [address] PCP - General 09/24/12 04/04/13 Pb Su MD [address] [place] [address] PCP - General 06/11/12 09/23/12 Pb Su MD [address] [place], [place] 257249 PCP - General 01/02/12 06/10/12 Pb Su MD [address] [place], [place] 39[address]69 PCP - General 10/03/11 01/01/12 Sussy Zavala MD Three [facility]. [facility] [address] [place], [place] 438509 PCP - General 08/05/11 10/02/11 documented as of this encounter
--- OUTSIDE RECORDS SUMMARY | 2024-11-15 05:11 | XMS_ITS | Encounter Summary ---
Author Organization [facility] Address [address] [place] [address]. [place], [place] [address] [place] [address] Care Team Providers Care Net Making Supervisor Name Role Phone Pb Su MD [...] Pb Su MD Primary Care Provider [phone] Pb Su MD Primary Care Provider [phone] Encounter Details Date Type Department Care Team (Latest Contact Info) Description 02/24/2013 Abstract [facility] Pb Su MD [address] [place], [place] 33918[address] Social History Tobacco Use Types Packs/Day Years [...] on filedocumented in this encounter Care Teams Net Making Supervisor Relationship Specialty Start Date End Date Pb Su MD [address] [place], [place] 96704269 PCP - General 04/26/16 Pb Su MD [address] [place], [place] [address]2269 PCP - General 05/19/15 04/25/16 Pb Su MD [address] [place], [place] 21686[address] PCP - General 12/07/14 05/18/15 Pb Su MD [address] [place], [place] 72018[address] PCP - General 12/05/14 12/06/14 Pb Su MD [address] [place], [place] [address] PCP - General 03/23/14 12/04/14 Pb Su MD [address] [place] [address] PCP - General 03/21/14 03/22/14 Pb Su MD [address] [place] [address]259 PCP - General 03/16/14 03/20/14 Pb Su MD [address] [place], [place] 53[address]99 PCP - General 03/14/14 03/15/14 Pb Su MD [address] [place], [place] 8[address] PCP - General 03/09/14 03/13/14 Pb Su MD [address] [place], [place] [address]239 PCP - General 03/02/14 03/08/14 Pb Su MD [address] [place], [place] 429779 PCP - General 02/28/14 03/01/14 Pb Su MD [address] [place] [address] PCP - General 02/25/14 02/27/14 Pb Su MD [address] [place] [address] PCP - General 02/23/14 02/24/14 Pb Su MD [address] [place] [address] PCP - General 02/17/14 02/22/14 Pb Su MD [address] [place], [place] 15[address] PCP - General 11/02/13 02/16/14 Pb Su MD [address] [place] [address] PCP - General 09/30/13 11/01/13 Pb Su MD [address] [place] 6[address]309 PCP - General 06/10/13 09/29/13 Pb Su MD [address] [place] [address]999 PCP - General 04/05/13 06/09/13 Pb Su MD [address] [place] [address] PCP - General 09/24/12 04/04/13 documented as of this encounter
--- OUTSIDE RECORDS SUMMARY | 2024-11-15 05:16 | XMS_ITS | Encounter Summary ---
Author Organization [facility] Address [address] [place] [address] Care Team Providers Care Automatic Edger Name Role Phone Unavailable Primary Care Provider Unavailabl e Encounter Details Date Type Department Care Team (Late st Contact Info) Description 11/11/2020 9:00 AM MUD JACK OPERATOR Rapid Evaluation [place] [facility] Community Testing [address] [address] Social History Tobacco Use Types Packs/Day Years Used Date Smoking Tobacco: Never Assessed Sex and Gender Information Value Date Recorded Sex Assigned at Not on file Legal Sex Male 8:21 AM MUD JACK OPERATOR Gender Identity Not on file Sexual Orientation Not on file documented as of this encounter Plan of Treatment Not on file documented as of this encounter Visit Diagnoses Not on filedocumented in this encounter
--- OUTSIDE RECORDS SUMMARY | 2024-11-15 05:16 | XMS_ITS | Encounter Summary ---
Author Organization [facility] Address [address] [place] [address] Care Team Providers Care Trophy Assembler Name Role Phone Unavailable Primary Care Provider Unavailabl e Encounter Details Date Type Department Care Team (Late st Contact Info) Description 11/11/2020 Lab Requisition [facility] Community Testing [facility] [address] [place] [address] [place] [address] [place] [address] Social History Tobacco Use Types Packs/Day Years Used Date Smoking Tobacco: Never Assessed Sex and Gender Information Value Date Recorded Sex Assigned at Not on file Legal Sex Male 8:21 AM GOVERNMENT RELATIONS MANAGER Gender Identity Not on file Sexual Orientation Not on file documented as of this encounter Plan of Treatment Not on file documented as of this encounter Procedures Procedure Name Priority Date/Time Associated Diagnosis Comments SARS-COV-2 PCR [facility] ONLY Routine 11/11/2020 10:31 AM GOVERNMENT RELATIONS MANAGER documented in this encounter Visit Diagnoses Not on filedocumented in this encounter
--- OUTSIDE RECORDS SUMMARY | 2024-11-15 05:16 | XMS_ITS | Encounter Summary ---
Author Organization [facility] Address [address] [place] [address] Care Team Providers Care Steam Powerplant Supervisor Name Role Phone Unavailable Primary Care Provider Unavailabl e Encounter Details Date Type Department Care Team (Late st Contact Info) Description 11/04/2020 9:00 AM BIOFUELS PROCESSING TECHNICIAN Rapid Evaluation [place] [facility] Community Testing [address] [address] Social History Tobacco Use Types Packs/Day Years Used Date Smoking Tobacco: Never Assessed Sex and Gender Information Value Date Recorded Sex Assigned at Not on file Legal Sex Male 8:21 AM BIOFUELS PROCESSING TECHNICIAN Gender Identity Not on file Sexual Orientation Not on file documented as of this encounter Plan of Treatment Not on file documented as of this encounter Visit Diagnoses Not on filedocumented in this encounter
--- OUTSIDE RECORDS SUMMARY | 2024-11-15 05:16 | XMS_ITS | Clinical Summary ---
Author Organization [facility] Address [address] [place] [phone] Care Team Providers Care Interpretive Program Coordinator Name Role Phone Unavailable Primary Care Provider Unavailabl e Social History Tobacco Use Types Packs/Day Years Used Date Smoking Tobacco: Never Assessed Sex and Gender Information Value Date Recorded Sex Assigned at Not on file Legal Sex Male 8:21 AM CLEANING ATTENDANT Gender Identity Not on file Sexual Orientation [...]
--- OUTSIDE RECORDS SUMMARY | 2024-11-15 05:16 | XMS_ITS | Encounter Summary ---
Author Organization [facility] Address [address] [place] [address] Care Team Providers Care Resource Manager Name Role Phone Unavailable Primary Care Provider Unavailabl e Encounter Details Date Type Department Care Team (Late st Contact Info) Description 11/04/2020 Lab Requisition [facility] Public Health Community Testing [facility] [address] [place] [address] [place], [place] [address] [place] [address] Social History Tobacco Use Types Packs/Day Years Used Date Smoking Tobacco: Never Assessed Sex and Gender Information Value Date Recorded Sex Assigned at Not on file Legal Sex Male 8:21 AM DYE TANK TENDER Gender Identity Not on file Sexual Orientation Not on file documented as of this encounter Plan of Treatment Not on file documented as of this encounter Procedures Procedure Name Priority Date/Time Associated Diagnosis Comments SARS-COV-2 PCR [facility] ONLY Routine 11/04/2020 8:48 AM DYE TANK TENDER documented in this encounter Visit Diagnoses Not on filedocumented in this encounter
== END 2024-11-08 12:28 | disposition home or self-care (01) ==
PROVIDERS: Emergency Provider Emergency Medicine; PCP Family Medicine
DX: K57.32 Diverticulitis of large intestine without perforation or abscess without bleeding (principal); Z87.891 Personal history of nicotine dependence
CPT/HCPCS: 36415; 74177; 80053; 81003; 85025; 85610; 85730; 99284; Q9967

== ENCOUNTER 2025-10-07 15:34 | Outpatient (CLI) | payer OTHER, SELFPAY ==
--- NOTE | ~2025-10-07 | XR_ITS ---
XR_[id number]_CR Indication: M54.12 - Radiculopathy, cervical region Comparison: None Findings: The vertebral heights are intact. No fracture or subluxation. Moderate loss of disc height at C5-6 and C6-7. Soft tissues unremarkable Impression: No acute abnormality. Reviewed, dictated and finalized at location P. GHT TRUCKER Impression: No acute abnormality.
== END 2025-10-07 15:35 | disposition home or self-care (01) ==
LOC: MICIMG 15:42
PROVIDERS: PCP Family Medicine; Visit Provider Physician Assistant Medical
DX: R29.890 Loss of height (principal); M54.12 Radiculopathy, cervical region
CPT/HCPCS: 72040

== ENCOUNTER 2025-11-01 17:00 | Outpatient (CLI) | payer OTHER, SELFPAY ==
--- NOTE | ~2025-11-01 | XR_ITS ---
EXAMINATION: XR chest 2V, 11/01/2025 16:55 SINGEING TORCH OPERATOR HISTORY: R05.9 - Cough, unspecified COMPARISON: No comparisons available. Technique: 2 views obtained. Findings: The lungs are clear, no effusion. No pneumothorax. Heart is normal size. Mediastinal and hilar contours are within normal limits. Bony thorax no acute abnormality. Impression: No acute cardiopulmonary abnormality. Reviewed, dictated and finalized at location P. EING TORCH OPERATOR Impression: No acute cardiopulmonary abnormality.
[2025-11-01 17:49] LABS: Influenza A QL RT-PCR Negative (Negative); Influenza B QL RT-PCR Negative (Negative); RSV RNA, RT-PCR Negative (Negative); SARS-CoV-2 RNA PCR Negative (Negative)
--- OUTSIDE RECORDS SUMMARY | 2025-11-01 19:04 | XMS_ITS | Clinical Summary ---
Author Organization [facility] Address [address] [place] [id number] Care Team Providers Care Technical Documentation Specialist Name Role Phone Pb Su MD [...] Comments Blood Pressure 120/64 10/21/2016 10:12 AM CONE EXAMINER Pulse 67 10/21/2016 10:12 AM CONE EXAMINER Temperature - - Respiratory Rate - - [...] Td Vaccines ( 1 - Tdap) 1982 Pneumococcal Vaccine: 50+ Ye ars (1 of 1 - PCV) 2013 Zoster Vaccines (1 of 2) 2013 COVID-19 Vaccine ( - 2024-2 6 season) 2025 Influenza Adult (#1) 2025 RSV Immunization or 60+ Years (1 - 1-dose 75+ series) 2038 Hepatitis A Vaccines Aged Out No long er eligible based on patient's age to complete this topic Meningococcal B Vaccine Aged Out No l onger eligible based on patient's age to complete this topic Meningococcal Vaccine Aged Out No himanshu cherry eligible based on patient's age to complete this topic RSV Immunizations Under 20 Months Aged Out No longer eligible based on patient's age to complete this topic Care Teams Technical Documentation Specialist Relationship Specialty Start Date End Date Pb Su MD [address] [place] [address] PCP - General 04/26/16
--- OUTSIDE RECORDS SUMMARY | 2025-11-01 19:04 | XMS_ITS | Clinical Summary ---
Author Organization [facility] Address [address] [place] [address] Care Team Providers Care Custom Garment Designer Name Role Phone Unavailable Primary Care Provider Unavailabl e Social History Tobacco Use Types Packs/Day Years Used Date Smoking Tobacco: Never Assessed Sex and Gender Information Value Date Recorded Sex Assigned at Not on file Legal Sex Male 8:21 AM RN PAIN MANAGEMENT Gender Identity Not on file Sexual Orientation Not on file Plan of Treatment Health Maintenance Due Date Last Done Comments Hepatitis C Virus (HCV) Screening 1965 Cologuard 2008 Colonoscopy 2008 Colorectal Cancer Screening 2008 Immunochemical Fecal Occult Blood 2008 Pneumococcal Immunization (5 0+ years) (1 of 1 - PCV) 2013 Zoster Immunization (1 of 2) 2013 Influenza Immunization (#1) 2025 07/27/2020 SARS-COV-2 Immunization (1 - season) 2025 Respiratory Syncytial Virus (RSV) Immunization (Adult) (1 - 1-dose 75+ series) 2038 DTaP/Tdap/Td Immunization Discontinued 11/08/2018 TdaP Immunization Completed 11/08/2018 Hepatitis B Immunization Aged Out No longer eligible based on patient's age to complete this topic Human Papillomavirus (HPV) Immunization Aged Out No longer eligible b ased on patient's age to complete this topic Meningococcal Immunization (ACWY) Aged Out No longer eligible based on patient's age to complete this topic Rotavirus Immunization Aged Out No lo nger eligible based on patient's age to complete this topic
== END 2025-11-01 17:01 | disposition home or self-care (01) ==
PROVIDERS: PCP Family Medicine; Visit Provider Physician Assistant
DX: R50.9 Fever, unspecified (principal); R05.9 Cough, unspecified; R06.02 Shortness of breath
CPT/HCPCS: 71046; 87637